=== PATIENT | male | born 1940 | race Caucasian/White ===

== ENCOUNTER 2020-07-21 15:45 | Emergency (ER) | payer MEDICARE, SELFPAY ==
[2020-07-21 16:05] VITALS: BP 105/58; PULSE 75; RESP 16; TEMP 36.9; O2SAT 97; BMI 37.3
--- NOTE | 2020-07-21 16:21 | HMH.EDUTC ---
[place] Disposition Clinical Impression: Exposure to COVID-19 virus Disposition: Home, Self-Care Condition on Discharge: Good Instructions: Preventing the Spread of Coronavirus Discharge Instructions Additional Instructions: isolate until test known Referrals: Chaparro Almanza [Primary Care Provider] - Time of Disposition: 16:24 Medical Decision Making - [place] Inquiry Pt receiving controlled substance: No Vital Signs: 07/21/20 16:05 Temperature 98.4 F Temperature Source Oral Pulse Rate [Right Brachial] 75 Respiratory Rate 16 Blood Pressure [Right Arm] 105/58 L Blood Pressure Mean [Right Arm] 73 Blood Pressure Source [Right Arm] Automatic Cuff Blood Pressure Position [Right Arm] Sitting 02 Sat by Pulse Oximetry 97 Oxygen Delivery Method Room Air Orders (Tests/Meds): ORDERS Category Date Time Status Covid-19 Nasal PCR ([facility]) Routine Lab 07/21/20 16:00 Received [place] HPI - General Chief complaint: Urgent [facility] Stated complaint: Been exposed to COVID Time Seen by Provider: 07/21/20 16:22 Mode of Arrival: Ambulatory Source of Information: Patient Limitations: No Limitations Description of Symptoms (Recalled from Triage Doc. by RN): PATIENT REQUESTING COVID TEST D/T INDIRECT EXPOSURE; DENIES SYMPTOMS HEENT Symptoms (Recalled from RN notes): No Resp Symptoms (Recalled from RN notes): No Skin Symptoms (Recalled from RN notes): No MS Symptoms (Recalled from RN notes): No Functional Status (Recalled from RN notes): WNL - History of Present Illness Provider Complaint: 80 yr old male presnets for covid test. Has been exposed but denies symptoms. - Related Data Home Medications Medication Instructions Recorded Confirmed ALPRAZolam [Xanax 1mg tab] 0.5 mg PO DAILY PRN 01/19/18 06/03/18 Gabapentin [Gabapentin 300mg Cap] 300 mg PO TID 01/19/18 06/03/18 Hydrocodone/Acetaminophen [Lortab 1 tab PO TID 01/19/18 06/03/18 10/325mg tablet] Metformin HCl [Glucophage 500mg 500 mg PO BID 01/19/18 06/03/18 Tablet] ALPRAZolam [Xanax 1mg tab] 1 mg PO BID 06/03/18 06/03/18 Insulin Glargine,Hum.rec.anlog 28 units SQ DAILY 06/03/18 06/03/18 [Tobarrett Solostar] Pioglitazone HCl 45 mg PO DAILY 06/03/18 06/03/18 Sitagliptin Phosphate [Januvia 100 mg PO DAILY 06/03/18 06/03/18 100mg tablet] Previous Rx's Medication Instructions Recorded Sulfamethoxazole/Trimethoprim 1 each PO BID #20 tablet 06/03/18 [Bactrim DS tablet] Allergies Allergy/AdvReac Type Severity Reaction Status Date / Time No Known Allergies Allergy Verified 06/03/18 16:38 - Worker's Comp Is this a Worker's Comp case?: No [facility] History - Hepatitis A Screen Drug use history?: No High risk sexual behaviors?: No History of sexually transmitted infection?: No Currently employed?: No Childcare worker?: No Do you have indoor plumbing?: Yes Do you have electricity?: Yes Attestation statement:: This patient has been screened for Hepatitis A risk factors. I have reviewed the patient's past medical history: Yes Medical History: Reports:: Diabetes Mellitus Type 2 Denies:: Diabetes Mellitus Type 1 Laterality Cases: Bilateral: Tonsillectomy - Social History Smoking Status: Former smoker Alcohol Intake: never Occupational Status: other ROS Obtained: Yes Systems reviewed as appropriate & no additional complaints - Constitutional Constitutional: Reports system reviewed and no additional complaints, except as docu, Denies body ache - Eyes Eyes: Reports system reviewed and no additional complaints, except as docu, Denies loss of vision - ENT Ears, Nose, Mouth, and Throat: Reports system reviewed and no additional complaints, except as docu, Denies bleeding gums - Cardiovascular Cardiovascular: Reports system reviewed and no additional complaints, except as docu, Denies chest pain - Respiratory Respiratory: Yes system reviewed and no additional complaints, except as docu, No change in
[2020-07-21 16:29] VITALS: BP 105/58; PULSE 75; RESP 16; TEMP 36.9; O2SAT 97
== END 2020-07-21 16:31 | disposition home or self-care (01) ==
PROVIDERS: Emergency Provider Nurse Practitioner Family; PCP Internal Medicine
DX: Z20.828 Contact with and (suspected) exposure to other viral communicable diseases (principal); E11.9 Type 2 diabetes mellitus without complications
CPT/HCPCS: G0463; 99201; U0003

== ENCOUNTER 2021-05-11 10:37 | Observation (INO) | payer MEDICARE, SELFPAY ==
[2021-05-11] VITALS (13 sets, daily range): BP systolic 119–144; BP diastolic 53–96; PULSE 60–83; RESP 16–18; TEMP 36.8–37.2; O2SAT 82–100; BMI 35.2; BMI 35.6
--- NOTE | 2021-05-11 11:44 | ECG_ITS ---
APPROVED REPORT Exam: Resting ECG HR:74 bpm ECG Measurements Heart Rate 74 AXES MO 210 P 37 QRSd 100 QRS -72 QT 400 T 37 QTc 444 Conclusion Sinus rhythm with 1st degree AV block Possible Left atrial enlargement Incomplete right bundle branch block Left anterior fascicular block Abnormal ECG Electronically signed by : Jeremie Schneider MD 05/11/2021 20:50:51
--- NOTE | 2021-05-11 12:07 | XR_ITS ---
PROCEDURE INFORMATION: Exam: XR Chest Exam date and time: 05/11/2021 12:07 PM Age: 81 years old Clinical indication: Cough and other: Vomiting, weakness, headache, generalized pain. ; Patient HX: Cough, headache, vomiting, weakness, generalized pain. Possible covid. TECHNIQUE: Imaging protocol: XR of the chest. Views: 1 view. COMPARISON: ABDPELWO CT abdomen pelvis wo con 06/03/2018 4:54 PM FINDINGS: Lungs: Lungs are well aerated without a focal area of consolidation. Pleural spaces: Small subpulmonic effusion on the left. Heart/Mediastinum: Unremarkable. No cardiomegaly. Bones/joints: Unremarkable. IMPRESSION: Lungs are well aerated without a focal area of consolidation.
[2021-05-11 12:31] LABS: ABG Base Excess 2.1 mmol/L (-2.4-2.3); ABG HCO3 27.5 mmhg (22.0-26.0); ABG Oxygen Saturation 75 % (90-100); ABG PH 7.36 mmol/L (7.35-7.45); ABG TCO2 29.1 mmhg (23-27)
[2021-05-11 12:32] LABS: Allen's Test Acceptable; Oxygen 2L %; Source Right Radial
[2021-05-11 12:33] LABS: Chloride 101 mmol/L (98-107)
[2021-05-11 12:34] LABS: Potassium 4.6 mmoL/L (3.5-5.1); Sodium 134 mmol/L (136-145)
[2021-05-11 12:36] LABS: Alanine Aminotransferase 11 U/L (12-78); Alkaline Phosphatase 49 U/L (38-126); Aspartate Amino Transferase 30 U/L (17-59); Bilirubin,Total 0.7 mg/dl (0.2-1.3); Blood Urea Nitrogen 15 mg/dl (9-20); Creatinine Clearance Estimated 90 mL/min (50-200); Estimated Glomerular Filt Rate 81 ml/min (>60); GFR (African American) 98 ML/MIN (>60)
--- NOTE | 2021-05-11 12:36 | HMH.EDGENADL ---
[place] Disposition Clinical Impression: Acute diverticulitis, Acute respiratory failure with hypoxia Right lower lobe pneumonia Qualifiers: Pneumonia type: due to unspecified organism Qualified Code(s): J18.9 - Pneumonia, unspecified organism Disposition: Admitted As Inpatient Condition on Discharge: Fair Instructions: DI for Diarrhea and Traveler's Diarrhea -- Adult, DI for Diarrhea and Traveler's Diarrhea -- Child, DI for Nausea -- Adult, DI for Nausea -- Child Referrals: Chaparro Almanza [Primary Care Provider] - - Critical Care Critical Care Time: No Attestation: On 05/11/21, the high probability of a clinically significant, sudden or life threatening deterioration of the following system(s) required my full and direct attention, intervention and personal management. The time I documented below is in addition to time spent performing reported procedures but includes the following listed in this critical care notation. Medical Decision Making - Medical Records Medical records reviewed: Yes: I reviewed the patient's medical records. - Antonio Inquiry Pt receiving controlled substance: No Vital Signs: 05/11/21 12:02 05/11/21 12:03 05/11/21 12:31 Temperature 98.2 F Temperature Source Oral Pulse Rate 72 71 Pulse Rate [Right Radial] 76 Respiratory Rate 17 17 16 Blood Pressure 136/65 135/64 Blood Pressure [Right Arm] 130/68 Blood Pressure Mean 76 78 Blood Pressure Mean [Right Arm] 88 Blood Pressure Source [Right Arm] Automatic Cuff Blood Pressure Position [Right Arm] Sitting 02 Sat by Pulse Oximetry 97 82 L 98 Oxygen Delivery Method Room Air 05/11/21 13:00 Temperature Temperature Source Pulse Rate 64 Pulse Rate [Right Radial] Respiratory Rate 16 Blood Pressure 137/61 Blood Pressure [Right Arm] Blood Pressure Mean 69 Blood Pressure Mean [Right Arm] Blood Pressure Source [Right Arm] Blood Pressure Position [Right Arm] 02 Sat by Pulse Oximetry 95 Oxygen Delivery Method - Lab Data Lab Results 05/11/21 11:55: WBC 6.1, RBC 4.07 L, Hgb 12.3 L, Hct 39.6 L, MCV 97.2 H, MCH 30.2, MCHC 31.1 L, RDW 14.7, Plt Count 133 L, MPV 8.9, Neut % (Auto) 78.2, Lymph % (Auto) 14.6, [place] % (Auto) 3.5, Eos % (Auto) 2.6, Baso % (Auto) 1.0, Neut # (Auto) 4.8, Lymph # (Auto) 0.9, [place] # (Auto) 0.2, Eos # (Auto) 0.2, Baso # (Auto) 0.1 05/11/21 11:55: Sodium 134 L, Potassium 4.6, Chloride 101, Carbon Dioxide 28, Anion Gap 9.6, BUN 15, Creatinine 0.90, Estimated Creat Clear 90, Estimated GFR 81, Est GFR ( Amer) 98, Glucose 112 H, Calcium 8.3 L, Total Bilirubin 0.7, AST 30, ALT 11 L, Alkaline Phosphatase 49, Troponin I < 0.01, Total Protein 6.2 L, Albumin 3.6, Globulin 2.6, Albumin/Globulin Ratio 1.4, TSH 2.08 05/11/21 11:55: NT-Pro-B Natriuret Pep 906 H, Lipase 49 05/11/21 12:07: Specimen Source Right radial, O2 % 2l, ABG pH 7.36, ABG pCO2 50.0 H, ABG pO2 42.1 L, ABG HCO3 27.5 H, ABG Total CO2 29.1 H, ABG O2 Saturation 75 L*, ABG Base Excess 2.1, Silvestre Test Acceptable 05/11/21 12:27: SARS-CoV-2 (PCR) Not detected, Influenza A Untype (PCR) Not detected, Influenza Type B (PCR) Not detected Result diagrams: 05/11/21 11:55 05/11/21 11:55 Orders (Tests/Meds): ED MEDICATIONS Generic Name Dose Route Start Last Admin Trade Name Allison PRN Reason Stop Dose Admin Sodium Chloride 1,000 mls @ 125 mls/hr 05/11/21 13:07 05/11/21 13:18 Sod Chlor 0.9% 1000ml Bag IV 05/11/21 21:06 125 mls/hr .Q8H ONE Administration Piperacillin Sod/Tazobactam 100 mls @ 200 mls/hr 05/11/21 15:30 Sod 4.5 gm/ Sodium Chloride IV 05/25/21 15:29 Q8H ERIC Vancomycin HCl 2,000 mg/ 250 mls @ 125 mls/hr 05/11/21 16:00 Sodium Chloride IV 05/25/21 15:59 Q18H ERIC Discontinued Medications Generic Name Dose Route Start Last Admin Trade Name Allison PRN Reason Stop Dose Admin Iopamidol 70 ml 05/11/21 13:49 05/11/21 13:52 Iopamidol-370 (76%);100ml Bottle IV 05/11/21 13:50 70 ml ONCE ONE
[2021-05-11 12:37] LABS: Albumin Level 3.6 g/dl (3.5-5.0); Albumin/Globulin Ratio 1.4 (1.1-1.8); Anion Gap 9.6 mEq/L (5-15); Calcium 8.3 mg/dl (8.4-10.2); Carbon Dioxide 28 mmol/L (22.0-30.0); Globulin 2.6 g/dL (1.3-3.2); Glucose 112 mg/dl (74-100); Lipase 49 U/L (23-300); Total Protein,Serum 6.2 g/dl (6.3-8.2)
[2021-05-11 12:41] LABS: ABG PO2 42.1 mmhg (80-100)
[2021-05-11 12:42] LABS: Basophils # 0.1 K/mm3 (0-0.2); Eosinophils # 0.2 K/mm3 (0.0-0.4); Eosinophils % 2.6 % (0.1-12.0); Hematocrit 39.6 % (42.0-52.0); Hemoglobin 12.3 g/dL (14.1-18.0); Lymphocytes # 0.9 K/mm3 (0.7-4.5); Lymphocytes % 14.6 % (10-50); Mean Corpuscular HGB Conc 31.1 g/dL (31.8-35.4); Mean Corpuscular Hemoglobin 30.2 pg (27.0-31.2); Mean Corpuscular Volume 97.2 fl (80-94); Mean Platelet Volume 8.9 fl (7.4-10.4); Monocytes # 0.2 K/mm3 (0.1-1.0); Monocytes % 3.5 % (1.7-9.3); Neutrophils # 4.8 K/mm3 (1.8-7.8); Neutrophils % 78.2 % (37.0-80.0); Platelet Count 133 K/mm3 (142-424); Red Blood Count 4.07 M/mm3 (4.60-6.20); Red Cell Distribution Width 14.7 % (11.5-17.5); White Blood Count 6.1 K/mm3 (4.8-10.8)
--- NOTE | 2021-05-11 12:44 | PC.NURSE ---
RT called VBG results of pH 7.35; CO2 50; PO2 42
[2021-05-11 12:48] LABS: NT Pro Brain Natriuretic Pep. 906 pg/mL (0-450)
[2021-05-11 12:56] LABS: Troponin I < 0.01 ng/ml (0.00-0.034)
[2021-05-11 12:59] LABS: Coronavirus 19, PCR Not Detected (NotDetected); Influenza A, PCR Not Detected (NotDetected); Influenza B, PCR Not Detected (NotDetected)
[2021-05-11 13:13] LABS: Thyroid Stimulating Hormone 2.08 uIU/mL (0.465-4.68)
--- NOTE | 2021-05-11 13:16 | CT_ITS ---
PROCEDURE INFORMATION: Exam: CTA Chest With Contrast Exam date and time: 05/11/2021 1:16 PM Age: 81 years old Clinical indication: Sternal or substernal pain; Patient HX: Chest pain, hypoxia TECHNIQUE: Imaging protocol: Computed tomographic angiography of the chest with contrast. 3D rendering (Not supervised by radiologist): MIP and/or 3D reconstructed images were created by the technologist. Radiation optimization: All CT scans at this facility use at least one of these dose optimization techniques: automated exposure control; mA and/or kV adjustment per patient size (includes targeted exams where dose is matched to clinical indication); or iterative reconstruction. Contrast material: ISOVUE 370; Contrast volume: 70 ml; Contrast route: INTRAVENOUS (IV); COMPARISON: CR XR CHEST PORTABLE 05/11/2021 12:22 PM FINDINGS: Pulmonary arteries: No evidence of pulmonary embolus to the segmental level. 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 Lungs: 3.1 mm nodule in the right middle lobe. Opacities in the lower lobes may represent atelectasis or pneumonia.. Pleural spaces: Unremarkable. No pneumothorax. No pleural effusion. Heart: Coronary artery calcifications may indicate coronary artery disease. Mediastinal space: The proximal esophagus is dilated 3 cm and contains air-fluid level . Mild hiatal hernia.. Lymph nodes: Unremarkable. No enlarged lymph nodes. Kidneys and ureters: Multiple simple cysts in both kidneys. Largest cyst is seen in the left kidney and measures 6.5 cm. . No follow-up imaging recommended . Nonobstructing left renal calculi Bones/joints: Healed left rib fractures 2 Soft tissues: Unremarkable. IMPRESSION: 1. 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 2. No evidence of pulmonary embolus to the segmental level. 3. 3.1 mm nodule in the right middle lobe. For patients at low risk (minimal or absent history of smoking and of other known risk factors), no routine follow-up is indicated. For patients at high risk (history of smoking or of other known risk factors), consider optional CT Chest at 12 months. (Reference: Radha) References: Radha Antunez et al. Guidelines for Management of Incidental Pulmonary Nodules Detected on CT Images: From the Fleischner Society 2017. Radiology. 2017;284(1):228-243. 4. The proximal esophagus is dilated 3 cm and contains air-fluid level . Mild hiatal hernia.. Recommend further evaluation for esophageal pathology if clinically indicated 5. Opacities in the lower lobes may represent atelectasis or pneumonia.. COMMENTS: Consistent with the [place] [employer]'s Incidental Findings Committee white paper (J Am Jacobo Radiol 2018): Any incidental renal lesion less than 1 cm or classified as too small to characterize, or any incidental cystic renal lesion characterized as simple-appearing, is likely benign. No follow-up imaging is recommended for these lesions per consensus recommendations based on imaging criteria.
--- NOTE | 2021-05-11 13:33 | CT_ITS ---
PROCEDURE INFORMATION: Exam: CT Abdomen And Pelvis Without Contrast Exam date and time: 05/11/2021 1:33 PM Age: 81 years old Clinical indication: Other: Diarrhea TECHNIQUE: Imaging protocol: Computed tomography of the abdomen and pelvis without contrast. Radiation optimization: All CT scans at this facility use at least one of these dose optimization techniques: automated exposure control; mA and/or kV adjustment per patient size (includes targeted exams where dose is matched to clinical indication); or iterative reconstruction. COMPARISON: [facility] CT abdomen pelvis wo con 06/03/2018 4:54 PM FINDINGS: Liver: Normal. No mass. Gallbladder and bile ducts: Normal. No calcified stones. No ductal dilation. Pancreas: Normal. No ductal dilation. Spleen: Normal. No splenomegaly. Adrenal glands: Normal. No mass. Kidneys and ureters: Large bilateral simple renal cysts. Largest measures 6.3 cm . No follow-up imaging recommended . Nonobstructing renal calculi. Stomach and bowel: Diverticulosis and Bowel wall thickening along the rectosigmoid colon. Mild pericolonic inflammatory changes. No evidence of perforation or abscess formation or bleeding. Findings consistent with acute diverticulitis. Appendix: No evidence of appendicitis. Intraperitoneal space: Unremarkable. No free air. No significant fluid collection. Vasculature: Unremarkable. No abdominal aortic aneurysm. Lymph nodes: Unremarkable. No enlarged lymph nodes. Urinary bladder: Unremarkable as visualized. Reproductive: Unremarkable as visualized. Bones/joints: See Soft tissues finding. Soft tissues: Suboptimal study due to the fact that large part of the left chest abdomen and pelvis is not included on this study. In addition the patient is not scanned to include the pubic symphysis.. IMPRESSION: 1. Suboptimal study due to the fact that large part of the left chest abdomen and pelvis is not included on this study. In addition the patient is not scanned to include the pubic symphysis.. 2. Diverticulosis and Bowel wall thickening along the rectosigmoid colon. Mild pericolonic inflammatory changes. No evidence of perforation or abscess formation or bleeding. Findings consistent with acute diverticulitis. COMMENTS: Consistent with the [place] [employer]'s Incidental Findings Committee white paper (J Am Jacobo Radiol 2018): Any incidental renal lesion less than 1 cm or classified as too small to characterize, or any incidental cystic renal lesion characterized as simple-appearing, is likely benign. No follow-up imaging is recommended for these lesions per consensus recommendations based on imaging criteria.
--- NOTE | 2021-05-11 15:27 | HMH.PHACONS ---
- Pharmacy Consult Date: 05/11/21 Time: 15:27 Referring provider: DR. LUIS Reason for Consult:: VANCOMYCIN DOSING Allergies and ADEs:: Allergies Allergy/AdvReac Type Severity Reaction Status Date / Time No Known Allergies Allergy Verified 06/03/18 16:38 Home Medications:: Home Medications Medication Instructions Recorded Confirmed Type Hydrocodone/Acetaminophen [Lortab 1 tab PO QID 01/19/18 05/12/21 History 10/325mg tablet] ALPRAZolam [Xanax 1mg tab] 1 mg PO BID 06/03/18 05/12/21 History Pioglitazone HCl 45 mg PO DAILY 06/03/18 05/12/21 History Albuterol Sulfate [Albuterol 1 puff IH TIDP PRN 05/12/21 05/12/21 History Sulfate Hfa] Citalopram Hydrobromide 10 mg PO DAILY 05/12/21 05/12/21 History [Citalopram 10mg Tablet] Finasteride [Proscar] 5 mg PO DAILY 05/12/21 05/12/21 History Gabapentin [Neurontin 800mg Tab] 800 mg PO BID 05/12/21 05/12/21 History Insulin Degludec [Tresiba 28 units SQ DAILY 05/12/21 05/12/21 History Flextouch U-100] Metformin HCl [Metformin 1000mg 1,000 mg PO BIDWMEAL 05/12/21 05/12/21 History Tablets] Sitagliptin Phosphate [Januvia 50 mg PO DAILY 05/12/21 05/12/21 History 50mg Tablet] levoFLOXacin [Levaquin 500mg 500 mg PO DAILY #7 tab 05/12/21 Rx tab] Height: 1.78 m Weight: 111.13 kg Laboratory Results:: Laboratory Results - last 24 hr 05/11/21 11:55: WBC 6.1, RBC 4.07 L, Hgb 12.3 L, Hct 39.6 L, MCV 97.2 H, MCH 30.2, MCHC 31.1 L, RDW 14.7, Plt Count 133 L, MPV 8.9, Neut % (Auto) 78.2, Lymph % (Auto) 14.6, [place] % (Auto) 3.5, Eos % (Auto) 2.6, Baso % (Auto) 1.0, Neut # (Auto) 4.8, Lymph # (Auto) 0.9, [place] # (Auto) 0.2, Eos # (Auto) 0.2, Baso # (Auto) 0.1 05/11/21 11:55: Sodium 134 L, Potassium 4.6, Chloride 101, Carbon Dioxide 28, Anion Gap 9.6, BUN 15, Creatinine 0.90, Estimated Creat Clear 90, Estimated GFR 81, Est GFR ( Amer) 98, Glucose 112 H, Calcium 8.3 L, Total Bilirubin 0.7, AST 30, ALT 11 L, Alkaline Phosphatase 49, Troponin I < 0.01, Total Protein 6.2 L, Albumin 3.6, Globulin 2.6, Albumin/Globulin Ratio 1.4, TSH 2.08 05/11/21 11:55: NT-Pro-B Natriuret Pep 906 H, Lipase 49 05/11/21 12:07: Specimen Source Right radial, O2 % 2l, ABG pH 7.36, ABG pCO2 50.0 H, ABG pO2 42.1 L, ABG HCO3 27.5 H, ABG Total CO2 29.1 H, ABG O2 Saturation 75 L*, ABG Base Excess 2.1, Silvestre Test Acceptable 05/11/21 12:27: SARS-CoV-2 (PCR) Not detected, Influenza A Untype (PCR) Not detected, Influenza Type B (PCR) Not detected Medical History: Reports:: Diabetes Mellitus Type 2 Denies:: Diabetes Mellitus Type 1 Assessment and Plan - Assessment and plan all Dx Assessment and Plan for all problems:: Objective: Patient: Floor: Age: 81 yo Serum creatinine: 1 mg/dL Height: 70.1 Inches Weight (kg): 111 Assessment: IBW (kg): 73.23 Dosing wt(kg): 111 Estimated Creatinine clearance (ml/min): 59.0 CRCL method: Cockcroft and Gault using ibw(default). Drug selected: Vancomycin Loading dose (mg): 0 Vd (liters): 88.8 (factor used: 0.8 L/kg) Shahzad (hr-1): 0.053 Half life (hrs): 13.08 Recommended dose: 2000 mg Interval: 18 hrs Infusion time (hrs): 2.0 Predicted peak (mcg/mL): 34.8 Predicted trough (mcg/mL): 14.90 Total body weight is being used for vancomycin dosing. Recommendations: Give Vancomycin 2000 mg q 18 hrs with an expected Cpeak of 34.8 mcg/ml and an expected Ctrough of 14.90 mcg/ml ----Vanco only - ignore for aminoglycosides----- CLvanco= 4.71 L/hr AUC 0-24 /NICOLETTE Data: NICOLETTE 0.5 mcg/mL: AUC/NICOLETTE: 1132.3 NICOLETTE 1.0 mcg/mL: AUC/NICOLETTE: 566.2 --------- NICOLETTE 1.5 mcg/mL: AUC/NICOLETTE: 377.4 NICOLETTE 2.0 mcg/mL: AUC/NICOLETTE: 283.1 Thank you for the consult, will continue to follow.
[2021-05-11 16:02] LABS: Troponin I 0.02 ng/ml (0.00-0.034)
--- NOTE | 2021-05-11 17:31 | PC.NURSE ---
Report called to Odalys Mei RN
[2021-05-11 18:11] LABS: POC Glucose,Bedside 112 (70-110)
--- NOTE | 2021-05-11 18:47 | PC.NURSE ---
Patient admitted from ER. C/O myalgia widespread, nausea and vomitting. Upon admission to room patient is oriented x 4 but very drowsy. Pulm: patient is on 2l nc and oxygen saturation is currently 98%. Incentive spirometer is at bedside. GI: Patient is excessively nauseas, vomitting. Blood glucose was 112, refused dinner but is drinking fluids. Skin c/d/i. Patient is ordered to be on telemetry, however, there are no available telemetry monitors. Will continue to monitor.
[2021-05-11 19:14] LABS: Troponin I < 0.01 ng/ml (0.00-0.034)
[2021-05-11 20:35] LABS: Lactic Acid 0.7 mmol/L (0.7-2.1)
[2021-05-11 23:01] LABS: POC Glucose,Bedside 123 (70-110)
[2021-05-12] VITALS: BP 119/51; PULSE 74; RESP 15; TEMP 36.6; O2SAT 96
[2021-05-12 02:14] VITALS: O2SAT 97
--- NOTE | 2021-05-12 03:28 | PC.NURSE ---
Patient is alert and oriented x4. Patient abdomen is tender upon palpation, bowel sounds are active in all quadrants. Patient has voiced no complaints of nausea to this RN at this point in time ([id number]). Patient remains on 2LNC and is tolerating that well with oxygen saturation above 90%. VSS, call light within reach, will continue to monitor.
[2021-05-12 04:00] VITALS: BP 134/65; PULSE 68; RESP 16; TEMP 37.2; O2SAT 98
[2021-05-12 05:00] VITALS: BMI 24.5
[2021-05-12 05:54] LABS: POC Glucose,Bedside 95 (70-110)
[2021-05-12 06:36] LABS: Basophils % 0.6 % (0.1-2.0); Eosinophils # 0.1 K/mm3 (0.0-0.4); Eosinophils % 1.4 % (0.1-12.0); Hematocrit 37.5 % (42.0-52.0); Hemoglobin 11.5 g/dL (14.1-18.0); Lymphocytes # 1.6 K/mm3 (0.7-4.5); Lymphocytes % 27.4 % (10-50); Mean Corpuscular HGB Conc 30.6 g/dL (31.8-35.4); Mean Corpuscular Hemoglobin 29.5 pg (27.0-31.2); Mean Corpuscular Volume 96.3 fl (80-94); Mean Platelet Volume 8.4 fl (7.4-10.4); Monocytes # 0.4 K/mm3 (0.1-1.0); Monocytes % 6.3 % (1.7-9.3); Neutrophils # 3.7 K/mm3 (1.8-7.8); Neutrophils % 64.3 % (37.0-80.0); Platelet Count 141 K/mm3 (142-424); Red Blood Count 3.89 M/mm3 (4.60-6.20); Red Cell Distribution Width 14.9 % (11.5-17.5); White Blood Count 5.8 K/mm3 (4.8-10.8)
[2021-05-12 06:54] LABS: Alanine Aminotransferase 10 U/L (12-78); Albumin Level 3.1 g/dl (3.5-5.0); Albumin/Globulin Ratio 1.2 (1.1-1.8); Alkaline Phosphatase 42 U/L (38-126); Aspartate Amino Transferase 20 U/L (17-59); Bilirubin,Total 0.5 mg/dl (0.2-1.3); Blood Urea Nitrogen 20 mg/dl (9-20); Calcium 8.1 mg/dl (8.4-10.2); Carbon Dioxide 30 mmol/L (22.0-30.0); Chloride 103 mmol/L (98-107); Creatinine Clearance Estimated 57 mL/min (50-200); Estimated Glomerular Filt Rate 64 ml/min (>60); GFR (African American) 78 ML/MIN (>60); Globulin 2.5 g/dL (1.3-3.2); Glucose 90 mg/dl (74-100); Sodium 136 mmol/L (136-145); Total Protein,Serum 5.6 g/dl (6.3-8.2)
--- NOTE | 2021-05-12 07:16 | P.CONPHA_ITS ---
[facility] Pharmacy VTE Monitoring - Patient Demographics Admission date: 05/11/21 Report Date: 05/12/21 Time: 07:16 Allergies/Adverse Reactions: Patient Allergies No Known Allergies Allergy (Verified 06/03/18 16:38) Height: 1.78 m Weight: 77.791 kg Patient Problems: Current Active Problems Right lower lobe pneumonia (Acute) Acute diverticulitis (Acute) Acute respiratory failure with hypoxia (Acute) - VTE Risk Labs: VTE Related Lab Results Hgb 11.5 g/dL (14.1-18.0) L 05/12/21 06:11 Hct 37.5 % (42.0-52.0) L 05/12/21 06:11 Plt Count 141 K/mm3 (142-424) L 05/12/21 06:11 BUN 20 mg/dl (9-20) D 05/12/21 06:11 Creatinine 1.10 mg/dl (0.66-1.25) D 05/12/21 06:11 Estimated Creat Clear 57 mL/min (50-200) 05/12/21 06:11 Was VTE Risk Assessment Performed: Yes VTE Score: 4 VTE Risk Level: Low Risk - Prophylaxis VTE Prophylaxis Ordered?: Yes Types of VTE Prophylaxis: TEDS Knee High, Pharmacological Location of Applied Device: Bilateral Lower Extremeties Pharmacologic Type: Enoxaparin
--- NOTE | 2021-05-12 07:36 | HMH.PHAINT ---
MEDICATION RECONCILIATION COMPLETED ON PATIENT USING EXTERNAL FILL HISTORY FROM PHARMACY. -ANTONIO HUGGINS, TONOD
[2021-05-12 08:00] VITALS: BP 125/49; PULSE 70; RESP 22; TEMP 36.8; O2SAT 97
--- NOTE | 2021-05-12 08:48 | HMH.HPDC ---
General - General Admission date:: 05/11/21 Discharge date: 05/12/21 *Admission Date: 05/11/21 *Chief complaint: Cough and fever *History of present illness: 81-year-old white male, normal patient of Dr. Almanza in [place], who presented to the emergency department with cough, congestion, fever, nausea and some vomiting. ER evaluation revealed mild leukocytosis, hazy infiltrate in the lung field, but no serologic evidence of COVID-19 infection and the diagnosis of community-acquired bacterial pneumonia was made. Because of his abdominal pain CT of abdomen pelvis was done which revealed mild thickening of the sigmoid colon and diverticulitis, mild with no evidence of perforation. Patient was admitted overnight for broad-spectrum antibiotics and cultures. [facility] History I have reviewed the patient's past medical history: Yes Medical History: Reports:: Diabetes Mellitus Type 2 Denies:: Diabetes Mellitus Type 1 *Have you ever received a pneumonia vaccine?: No *Have you received a flu vaccine this season?: Yes Other Medical History: Reports: Cataracts Laterality Cases: Bilateral: Tonsillectomy Fractures: Yes (rib) - *Social History Last grade of school completed: 9th or 10th Smoking Status: Former smoker Alcohol Intake: never *Occupational Status:: retired Housing: house Household Members: spouse, children *Travel in the last 8 weeks: None Family Hx:: Hyperlipidemia, Hypertension Review of Systems - Review of Systems Review of systems:: pertinent systems reviewed and negative unless documented below - *Neurologic Reports weakness, Denies headache(s) Exam Vital signs and Labs for Last 24 Hours: Temp Pulse Resp BP Pulse Ox 98.9 F 68 16 134/65 98 05/12/21 04:00 05/12/21 04:00 05/12/21 04:00 05/12/21 04:00 05/12/21 04:00 Laboratory Results - last 24 hr 05/11/21 11:55: WBC 6.1, RBC 4.07 L, Hgb 12.3 L, Hct 39.6 L, MCV 97.2 H, MCH 30.2, MCHC 31.1 L, RDW 14.7, Plt Count 133 L, MPV 8.9, Neut % (Auto) 78.2, Lymph % (Auto) 14.6, [place] % (Auto) 3.5, Eos % (Auto) 2.6, Baso % (Auto) 1.0, Neut # (Auto) 4.8, Lymph # (Auto) 0.9, [place] # (Auto) 0.2, Eos # (Auto) 0.2, Baso # (Auto) 0.1 05/11/21 11:55: Sodium 134 L, Potassium 4.6, Chloride 101, Carbon Dioxide 28, Anion Gap 9.6, BUN 15, Creatinine 0.90, Estimated Creat Clear 90, Estimated GFR 81, Est GFR ( Amer) 98, Glucose 112 H, Calcium 8.3 L, Total Bilirubin 0.7, AST 30, ALT 11 L, Alkaline Phosphatase 49, Troponin I < 0.01, Total Protein 6.2 L, Albumin 3.6, Globulin 2.6, Albumin/Globulin Ratio 1.4, TSH 2.08 05/11/21 11:55: NT-Pro-B Natriuret Pep 906 H, Lipase 49 05/11/21 12:07: Specimen Source Right radial, O2 % 2l, ABG pH 7.36, ABG pCO2 50.0 H, ABG pO2 42.1 L, ABG HCO3 27.5 H, ABG Total CO2 29.1 H, ABG O2 Saturation 75 L*, ABG Base Excess 2.1, Silvestre Test Acceptable 05/11/21 12:27: SARS-CoV-2 (PCR) Not detected, Influenza A Untype (PCR) Not detected, Influenza Type B (PCR) Not detected 05/11/21 15:20: Troponin I 0.02 05/11/21 18:04: POC Glucose 112 H 05/11/21 18:32: Troponin I < 0.01 05/11/21 19:15: Lactate 0.7 05/11/21 21:04: POC Glucose 123 H 05/12/21 05:47: POC Glucose 95 05/12/21 06:11: WBC 5.8, RBC 3.89 L, Hgb 11.5 L, Hct 37.5 L, MCV 96.3 H, MCH 29.5, MCHC 30.6 L, RDW 14.9, Plt Count 141 L, MPV 8.4, Neut % (Auto) 64.3, Lymph % (Auto) 27.4, [place] % (Auto) 6.3, Eos % (Auto) 1.4, Baso % (Auto) 0.6, Neut # (Auto) 3.7, Lymph # (Auto) 1.6, [place] # (Auto) 0.4, Eos # (Auto) 0.1, Baso # (Auto) 0.0 05/12/21 06:11: Sodium 136, Potassium 4.0, Chloride 103, Carbon Dioxide 30, Anion Gap 7.0, BUN 20 D, Creatinine 1.10 D, Estimated Creat Clear 57, Estimated GFR 64, Est GFR ( Amer) 78 D, Glucose 90, Calcium 8.1 L, Total Bilirubin 0.5, AST 20 D, ALT 10 L, Alkaline Phosphatase 42, Total Protein 5.6 L, Albumin 3.1 L D, Globulin 2.5, Albumin/Globulin Ratio 1.2 I & O for Last 24 hours: Intake & Output 05/09/21 05/10/21 05/11/21 05/12/21 11:59 11:59 11:59 11:59 Weight 171 lb
[2021-05-12 09:34] VITALS: BMI 24.6
--- NOTE | 2021-05-12 10:02 | PC.NURSE ---
PAtient to be discharged today on provider's orders. Patient to be discharged home with shceduled home medications and addition to Levaquin- which was called into [facility] pharmacy (patient's current pharmacy). New medication information packet given to patient as well as verbal teaching of medication use and side effects. Discharge summary given, explaining all admitting diagnoses- these were also discussed with patient. Patient stated that they had no questions for the nurse or provider at the time of discharge, patient instructed to call provider's office if they have questions or concerns, and to also attend scheduled appointment. no further orders.
== END 2021-05-12 09:50 | disposition home or self-care (01) ==
LOC: UTC 10:43 → ER 11:41 → 2ND 17:05
PROVIDERS: Emergency Medicine; Family Medicine; Admitting Provider Internal Medicine Adolescent Medicine; Emergency Provider Nurse Practitioner Family; PCP Internal Medicine; Visit Provider Internal Medicine Adolescent Medicine
DX: J18.9 Pneumonia, unspecified organism (principal); K57.92 Diverticulitis of intestine, part unspecified, without perforation or abscess without bleeding; J96.01 Acute respiratory failure with hypoxia; Z20.822 Contact with and (suspected) exposure to COVID-19; E11.9 Type 2 diabetes mellitus without complications; Z79.84 Long term (current) use of oral hypoglycemic drugs; Z79.899 Other long term (current) drug therapy; R06.9 Unspecified abnormalities of breathing
CPT/HCPCS: G0378; 36415; 71045; 71275; 74176; 80053; 82803; 82962; 83605; 83690; 83880; 84443; 84484; 85025; 87040; 93005; 94760; 94761; 96365; 96375; 96376; 99284; C9803; J2405; J2543; J3370; Q9967; U0003; U0005

== ENCOUNTER 2022-03-26 11:28 | Observation (INO) | payer MEDICARE, SELFPAY ==
[2022-03-26] VITALS (9 sets, daily range): BP systolic 100–116; BP diastolic 45–67; PULSE 74–111; RESP 16–18; TEMP 36.4–37.1; O2SAT 91–96; BMI 33.0; BMI 32.9; BMI 32.5
--- NOTE | 2022-03-26 12:31 | HMH.EDUTC ---
[facility] [place] Disposition Clinical Impression: New onset atrial fibrillation, Hypomagnesemia Hypotension Qualifiers: Hypotension type: unspecified hypotension type Qualified Code(s): I95.9 - Hypotension, unspecified Disposition: Still a Patient Condition on Discharge: Fair Medical Decision Making - Antonio Inquiry Pt receiving controlled substance: No Antonio was queried for this patient: No Vital Signs: 03/26/22 11:45 03/26/22 12:00 03/26/22 12:59 Temperature 98.7 F 98.7 F Temperature Source Oral Oral Pulse Rate Pulse Rate [Left Radial] 78 78 111 H Respiratory Rate 17 17 18 Blood Pressure Blood Pressure [Right Arm] 116/45 L 100/50 L 102/60 L Blood Pressure Mean Blood Pressure Mean [Right Arm] 68 66 74 Blood Pressure Source [Right Arm] Manual Cuff/ Auscultation Blood Pressure Position [Right Arm] Sitting 02 Sat by Pulse Oximetry 96 96 93 L Oxygen Delivery Method Room Air Room Air Room Air 03/26/22 13:04 03/26/22 14:00 Temperature Temperature Source Pulse Rate 93 H 85 Pulse Rate [Left Radial] Respiratory Rate Blood Pressure 102/60 L 104/67 L Blood Pressure [Right Arm] Blood Pressure Mean 69 74 Blood Pressure Mean [Right Arm] Blood Pressure Source [Right Arm] Blood Pressure Position [Right Arm] 02 Sat by Pulse Oximetry 94 L 96 Oxygen Delivery Method Room Air - Lab Data Lab Results 03/26/22 13:05: WBC 7.4, RBC 4.17 L, Hgb 12.3 L, Hct 39.8 L, MCV 95.4 H, MCH 29.4, MCHC 30.8 L, RDW 13.9, Plt Count 170, MPV 8.4, Neut % (Auto) 67.7, Lymph % (Auto) 21.2, [place] % (Auto) 4.4, Eos % (Auto) 5.6, Baso % (Auto) 1.1, Neut # (Auto) 5.0, Lymph # (Auto) 1.6, [place] # (Auto) 0.3, Eos # (Auto) 0.4, Baso # (Auto) 0.1 03/26/22 13:05: Sodium 137, Potassium 4.4, Chloride 103, Carbon Dioxide 31 H, Anion Gap 7.4, BUN 14, Creatinine 0.90, Estimated Creat Clear 83, Estimated GFR 81, Est GFR ( Amer) 98, Glucose 122 H, Calcium 8.5, Total Bilirubin 0.4, AST 23, ALT 14, Alkaline Phosphatase 61, Troponin I < 0.01, Total Protein 5.9 L, Albumin 3.4 L, Globulin 2.5, Albumin/Globulin Ratio 1.4 03/26/22 13:05: TSH 1.43, Free T4 Index 2.4 L, Thyroxine (T4) 5.7, T3 Uptake 42 H 03/26/22 13:05: Magnesium 1.0 L 03/26/22 13:40: Urine Color Yellow, Urine Appearance Clear, Urine pH 6.0, Ur Specific [place] 1.025, Urine Protein Negative, Urine Glucose (UA) Negative, Urine Ketones Trace, Urine Blood Trace-i, Urine Nitrate Negative, Urine Bilirubin Negative, Urine Urobilinogen 0.2, Ur Leukocyte Esterase Negative, Urine RBC Occasional, Urine WBC Occasional, Ur Squamous Epith Cells Occasional, Urine Bacteria Trace, Urine Mucus 3+ 03/26/22 14:45: SARS-CoV-2 (PCR) Not detected, Influenza A Untype (PCR) Not detected, Influenza Type B (PCR) Not detected Result diagrams: 03/26/22 13:05 03/26/22 13:05 Orders (Tests/Meds): ED MEDICATIONS Generic Name Dose Route Start Last Admin Trade Name Freq PRN Reason Stop Dose Admin Hydrocodone Bitart/Acetaminophen 1 tab 03/26/22 17:00 03/26/22 16:49 Hydrocodone 10mg/Apap 325mg Tab PO 04/25/22 16:59 1 tab QID ERIC Administration Albuterol Sulfate 1 puff 03/26/22 16:07 Albuterol-Hfa 90mcg/Puff Inhaler 8gm IH 04/25/22 16:06 TIDP PRN Shortness Of Breath Alprazolam 1 mg 03/26/22 21:00 Alprazolam 1mg Tablet PO 04/25/22 20:59 BID ERIC Finasteride 5 mg 03/27/22 09:00 Finasteride 5mg Tablet PO 04/26/22 08:59 DAILY ERIC Gabapentin 800 mg 03/26/22 21:00 Gabapentin 400mg Capsule PO 04/25/22 20:59 BID ERIC Sodium Chloride 1,000 mls @ 75 mls/hr 03/26/22 16:07 03/26/22 16:49 Sod Chlor 0.9% 1000ml Bag IV 04/25/22 16:06 75 mls/hr .[id number] ERIC Administration Insulin Human Lispro 0 unit 03/26/22 16:30 03/26/22 16:51 Humalog 100 Units/Ml 3ml Vial (Ssi) SQ 04/25/22 16:29 Not Given ACHS ERIC Protocol Ondansetron HCl 4 mg 03/26/22 16:07 Ondansetron 4mg/2ml Vial IV 04/25/22 16:06 Q8HP PRN Nausea Héctor
--- NOTE | 2022-03-26 12:53 | PC.NURSE ---
PATIENT SENT TO ER PER Charles MATOS APRN FOR FURTHER EVALUATION. REPORT GIVEN TO Camilla FUNK RN BY Charles MATOS APRN
--- NOTE | 2022-03-26 13:04 | ECG_ITS ---
APPROVED REPORT Exam: Resting ECG HR:95 bpm ECG Measurements Heart Rate 95 AXES QRSd 103 QRS 265 QT 359 T 0 QTc 411 Conclusion ATRIAL FIBRILLATION PATTERN CONSISTENT WITH PULMONARY DISEASE INCOMPLETE RIGHT BUNDLE BRANCH BLOCK [90+ ms QRS DURATION, TERMINAL R IN V1/V2, 40+ ms S IN I/aVL/V4/V5/V6] RIGHT VENTRICULAR HYPERTROPHY [SOME/ALL OF: PROMINENT R IN V1, LATE TRANSITION, RAD, DEANDRE, SSS] ABNORMAL ECG UNCONFIRMED REPORT Electronically signed by : Jeremie Schneider MD 03/27/2022 21:41:10
--- NOTE | 2022-03-26 13:07 | PC.NURSE ---
EKG obtained and given to STANLEY PAYAN
--- NOTE | 2022-03-26 13:09 | XR_ITS ---
FINAL REPORT CLINICAL HISTORY: new onset afib COMPARISON: 05/11/2021 FINDINGS: SINGLE-VIEW CHEST The heart size is normal. The mediastinum is normal. There are mild bibasilar opacities, favor atelectasis. There is severe degenerative change of the right shoulder. There is no pneumothorax. IMPRESSION: Favor bibasilar atelectasis. Reviewed, Interpreted and Dictated by Myke Nash III, MD Transcribed by Marisol Davis Authenticated and [facility]
--- NOTE | 2022-03-26 13:12 | HMH.EDGENADL ---
ED Disposition Clinical Impression: New onset atrial fibrillation, Hypomagnesemia Hypotension Qualifiers: Hypotension type: unspecified hypotension type Qualified Code(s): I95.9 - Hypotension, unspecified Disposition: Still a Patient Condition on Discharge: Fair Referrals: Chaparro Almanza [Primary Care Provider] - As needed - Critical Care Critical Care Time: No Attestation: On 03/26/22, the high probability of a clinically significant, sudden or life threatening deterioration of the following system(s) required my full and direct attention, intervention and personal management. The time I documented below is in addition to time spent performing reported procedures but includes the following listed in this critical care notation. Medical Decision Making - Antonio Inquiry Pt receiving controlled substance: No Vital Signs: 03/26/22 11:45 03/26/22 12:00 03/26/22 12:59 Temperature 98.7 F 98.7 F Temperature Source Oral Oral Pulse Rate Pulse Rate [Left Radial] 78 78 111 H Respiratory Rate 17 17 18 Blood Pressure Blood Pressure [Right Arm] 116/45 L 100/50 L 102/60 L Blood Pressure Mean Blood Pressure Mean [Right Arm] 68 66 74 Blood Pressure Source [Right Arm] Manual Cuff/ Auscultation Blood Pressure Position [Right Arm] Sitting 02 Sat by Pulse Oximetry 96 96 93 L Oxygen Delivery Method Room Air Room Air Room Air 03/26/22 13:04 03/26/22 14:00 Temperature Temperature Source Pulse Rate 93 H 85 Pulse Rate [Left Radial] Respiratory Rate Blood Pressure 102/60 L 104/67 L Blood Pressure [Right Arm] Blood Pressure Mean 69 74 Blood Pressure Mean [Right Arm] Blood Pressure Source [Right Arm] Blood Pressure Position [Right Arm] 02 Sat by Pulse Oximetry 94 L 96 Oxygen Delivery Method Room Air - Lab Data Lab Results 03/26/22 13:05: WBC 7.4, RBC 4.17 L, Hgb 12.3 L, Hct 39.8 L, MCV 95.4 H, MCH 29.4, MCHC 30.8 L, RDW 13.9, Plt Count 170, MPV 8.4, Neut % (Auto) 67.7, Lymph % (Auto) 21.2, [place] % (Auto) 4.4, Eos % (Auto) 5.6, Baso % (Auto) 1.1, Neut # (Auto) 5.0, Lymph # (Auto) 1.6, [place] # (Auto) 0.3, Eos # (Auto) 0.4, Baso # (Auto) 0.1 03/26/22 13:05: Sodium 137, Potassium 4.4, Chloride 103, Carbon Dioxide 31 H, Anion Gap 7.4, BUN 14, Creatinine 0.90, Estimated Creat Clear 83, Estimated GFR 81, Est GFR ( Amer) 98, Glucose 122 H, Calcium 8.5, Total Bilirubin 0.4, AST 23, ALT 14, Alkaline Phosphatase 61, Troponin I < 0.01, Total Protein 5.9 L, Albumin 3.4 L, Globulin 2.5, Albumin/Globulin Ratio 1.4 03/26/22 13:05: TSH 1.43, Free T4 Index 2.4 L, Thyroxine (T4) 5.7, T3 Uptake 42 H 03/26/22 13:05: Magnesium 1.0 L 03/26/22 13:40: Urine Color Yellow, Urine Appearance Clear, Urine pH 6.0, Ur Specific [place] 1.025, Urine Protein Negative, Urine Glucose (UA) Negative, Urine Ketones Trace, Urine Blood Trace-i, Urine Nitrate Negative, Urine Bilirubin Negative, Urine Urobilinogen 0.2, Ur Leukocyte Esterase Negative, Urine RBC Occasional, Urine WBC Occasional, Ur Squamous Epith Cells Occasional, Urine Bacteria Trace, Urine Mucus 3+ Result diagrams: 03/26/22 13:05 03/26/22 13:05 Orders (Tests/Meds): ED MEDICATIONS Generic Name Dose Route Start Last Admin Trade Name Freq PRN Reason Stop Dose Admin Magnesium Sulfate 2 gm in 50 mls @ 50 mls/hr 03/26/22 14:32 03/26/22 14:35 Magnesium Sulfate 2gm/50ml Premix IV 03/26/22 15:31 50 mls/hr ONCE ONE Administration Sodium Chloride 10 ml 03/26/22 13:11 Sodium Chloride 0.9% 10ml Flush Syringe IV 04/25/22 13:10 NEEDED PRN Maintain IV Site Discontinued Medications Generic Name Dose Route Start Last Admin Trade Name Freq PRN Reason Stop Dose Admin Sodium Chloride 1,000 ml 03/26/22 14:11 03/26/22 14:14 Sodium Chloride 0.9% 1000ml Bag IV 03/26/22 14:12 1,000 ml BOLUS ONE Administration ORDERS Category Date Time Status Consult to Cardiology [CONS] Routine Cons 03/26/22 14:12 Active Rapid PCR C
[2022-03-26 13:19] LABS: Basophils # 0.1 K/mm3 (0-0.2); Basophils % 1.1 % (0.1-2.0); Eosinophils # 0.4 K/mm3 (0.0-0.4); Eosinophils % 5.6 % (0.1-12.0); Hematocrit 39.8 % (42.0-52.0); Hemoglobin 12.3 g/dL (14.1-18.0); Lymphocytes # 1.6 K/mm3 (0.7-4.5); Lymphocytes % 21.2 % (10-50); Mean Corpuscular HGB Conc 30.8 g/dL (31.8-35.4); Mean Corpuscular Hemoglobin 29.4 pg (27.0-31.2); Mean Corpuscular Volume 95.4 fl (80-94); Mean Platelet Volume 8.4 fl (7.4-10.4); Monocytes # 0.3 K/mm3 (0.1-1.0); Monocytes % 4.4 % (1.7-9.3); Neutrophils % 67.7 % (37.0-80.0); Platelet Count 170 K/mm3 (142-424); Red Blood Count 4.17 M/mm3 (4.60-6.20); Red Cell Distribution Width 13.9 % (11.5-17.5); White Blood Count 7.4 K/mm3 (4.8-10.8)
[2022-03-26 13:26] LABS: Alanine Aminotransferase 14 U/L (12-78); Albumin Level 3.4 g/dl (3.5-5.0); Albumin/Globulin Ratio 1.4 (1.1-1.8); Alkaline Phosphatase 61 U/L (38-126); Anion Gap 7.4 mEq/L (5-15); Aspartate Amino Transferase 23 U/L (17-59); Bilirubin,Total 0.4 mg/dl (0.2-1.3); Blood Urea Nitrogen 14 mg/dl (9-20); Calcium 8.5 mg/dl (8.4-10.2); Carbon Dioxide 31 mmol/L (22.0-30.0); Chloride 103 mmol/L (98-107); Creatinine Clearance Estimated 83 mL/min (50-200); Estimated Glomerular Filt Rate 81 ml/min (>60); GFR (African American) 98 ML/MIN (>60); Globulin 2.5 g/dL (1.3-3.2); Glucose 122 mg/dl (74-100); Potassium 4.4 mmoL/L (3.5-5.1); Sodium 137 mmol/L (136-145); Total Protein,Serum 5.9 g/dl (6.3-8.2)
[2022-03-26 13:40] LABS: Troponin I < 0.01 ng/ml (0.00-0.034)
[2022-03-26 13:53] LABS: Microscopic, Urine URINE MICROSCOPIC (MICROSCOPIC)
[2022-03-26 13:58] LABS: Appearance,Urine CLEAR (Clear); Bilirubin,Urine Negative (Negative); Blood, Urine TRACE-I (Negative); Color,Urine YELLOW (Yellow); Glucose,Urine (UA) Negative (Negative); Ketones,Urine TRACE (Negative); Leukocyte Esterase,Urine Negative (Negative); Nitrate,Urine Negative (Negative); Protein,Urine Negative (Negative); Specific Gravity, Urine 1.025 (1.005-1.030); Urobilinogen,Urine 0.2 EU/dl (0.2)
--- NOTE | 2022-03-26 14:05 | PC.NURSE ---
ER at for patient eval; Family at BS
[2022-03-26 14:17] LABS: Bacteria,Urine Trace /lpf; Mucus,Urine 3+ /lpf; RBC,Urine Occasional #/hpf (0-3); Squamous Epithelial Cell,Urine Occasional #/hpf (0-5); WBC,Urine Occasional #/hpf (0-3)
--- NOTE | 2022-03-26 14:25 | PC.NURSE ---
critical magnesium of 1.0 called from lab. physician notified.
[2022-03-26 14:32] LABS: Free Thyroxine Index 2.4 ug/dL (5.93-13.13); T4 (Thyroxine) 5.7 ug/dl (5.53-11.0); Triiodothryronine (T3) Uptake 42 % (23.5-40.5)
--- NOTE | 2022-03-26 14:36 | PC.NURSE ---
CARDIOLOGY HERE FOR CONSULT
[2022-03-26 14:46] LABS: Thyroid Stimulating Hormone 1.43 uIU/mL (0.465-4.68)
--- NOTE | 2022-03-26 14:50 | CA_ITS ---
APPROVED REPORT EXAM: Comprehensive 2D, Doppler, and color-flow Echocardiogram Bindery Manager: Johanne Rg RVT Ht: 5 ft 10 in Wt: 229lbs BSA: 2.21 BP: 104/67 mmHg Indications: A-FIB,DM 2D Dimensions LVOT 2.36 cm (M/F) 1.5-2.5 LA Volume 92.50 mL LA Volume Index 41.85 mL/m2 (M/F) 16-34 M-Mode Dimensions RVDd 3.65 cm (0.9-2.6) LA Diam 5.60 cm (1.9-4.0) LVDd 4.28 cm (3.5-5.7) Ao Diam 3.38 cm (2.0-3.7) LVDs 3.13 cm (3.5-5.7) IVSd 1.29 cm (0.6-1.1) PWd 1.13 cm (0.6-1.1) EF (Teich) 52.80% FS 26.90% EDV (Teich) 82.20 mL TAPSE 2.45 (<1.7) ESV (Teich) 38.80 mL LV Diastology MED E' 8.70 (< 7 cm/sec) LAT E' 13.20 (<10 cm/sec) Aortic Valve AO Peak GR. 2.90 mmHg Pulmonary Valve PV Peak Velocity 63.00 (50-150 cm/s) Tricuspid Valve TR P. Velocity 275.00 cm/s RAP Estimate 10.00 mmHg RVSP 40.30 mmHg Left Ventricle Left atrium is mildly enlarged, left ventricle is normal size mild concentric left ventricular hypertrophy, estimated ejection fraction 55% with no regional wall motion abnormality, diastolic parameters are inconclusive. Right Ventricle Right atrium and right ventricle are mildly enlarged with normal contractility. Aortic Valve Aortic valve is minimally thickened and fibrosed there is no aortic stenosis or aortic insufficiency. Mitral Valve Mitral valve leaflets are minimally thickened, there is mild mitral regurgitation Tricuspid Valve Tricuspid grossly normal, there is mild tricuspid regurgitation, calculated right ventricular systolic pressure is 37 mmHg. Pulmonic Valve Pulmonic valve is poorly visualized. Great Vessels Aortic root is normal size. Inferior vena cava is poorly visualized. Pericardium No significant pericardial effusion noted. Conclusion 1. Mild biatrial enlargement, normal left ventricular size, mild concentric left ventricular hypertrophy, estimated ejection fraction 55% with no regional wall motion abnormality, diastolic parameters are inconclusive. 2. Mildly enlarged right ventricle with normal contractility. 3. Mild mitral and tricuspid regurgitation, calculated right ventricular systolic pressure 37 mmHg. 4. No significant pericardial effusion noted. 5. Inferior vena cava is poorly visualized. Electronically signed by : Immanuel Dover MD 03/27/2022 15:10:48
--- NOTE | 2022-03-26 14:52 | HMH.CNCARD ---
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 Patient reports started to feel bad last night around bedtime, developed severe nausea,was unable to vomit despite trying. Reports could only belch. Also developed cramping in bilateral legs from groin to feet. Patient went to [facility] today and was found to be hypotensive with a irregular pulse. reports patient has had a long history of nausea and vomiting which he was prescribed Zofran for him his PCP. Denies prior GI consult. Reports nausea is now better and cramping in legs have resolved. Upon presentation to ER EKG showed A. fib rate of 95 with a right bundle branch block, troponin was negative, hemoglobin 12.3, magnesium 1.0, and potassium 4.4. Patient denies chest pain, notes of breath, abdominal pain. Denies prior history of A. fib. [facility] History Medical History: Reports:: Diabetes Mellitus Type 2 Denies:: Diabetes Mellitus Type 1 *Have you ever received a pneumonia vaccine?: Yes *Have you received a flu vaccine this season?: Yes Other Medical History: Reports: Cataracts Laterality Cases: Bilateral: Tonsillectomy Fractures: Yes (rib) - *Social History Smoking Status: Former smoker Alcohol Intake: never *Occupational Status:: retired Housing: house Household Members: spouse, children *Travel in the last 8 weeks: [facility] Family Hx:: Hyperlipidemia, Hypertension Meds Home Medications Medication Instructions Recorded Confirmed Type Hydrocodone/Acetaminophen [Lortab 1 tab PO QID 01/19/18 03/26/22 History 10/325mg tablet] ALPRAZolam [Xanax 1mg tab] 1 mg PO BID 06/03/18 03/26/22 History Pioglitazone HCl 45 mg PO DAILY 06/03/18 03/26/22 History Albuterol Sulfate [Albuterol 1 puff IH TIDP PRN 05/12/21 03/26/22 History Sulfate Hfa] Citalopram Hydrobromide 10 mg PO DAILY 05/12/21 03/26/22 History [Citalopram 10mg Tablet] Finasteride [Proscar] 5 mg PO DAILY 05/12/21 03/26/22 History Gabapentin [Neurontin 800mg Tab] 800 mg PO BID 05/12/21 03/26/22 History Insulin Degludec [Tresiba 28 units SQ DAILY 05/12/21 03/26/22 History Flextouch U-100] Metformin HCl [Metformin 1000mg 1,000 mg PO BIDWMEAL 05/12/21 03/26/22 History Tablets] Sitagliptin Phosphate [Januvia 50 mg PO DAILY 05/12/21 03/26/22 History 50mg Tablet] Allergies Allergy/AdvReac Type Severity Reaction Status Date / Time No Known Allergies Allergy Verified 06/03/18 16:38 Exam Vital signs and Labs for Last 24 Hours: Temp Pulse Resp BP Pulse Ox 98.7 F 85 18 104/67 L 96 03/26/22 12:59 03/26/22 14:00 03/26/22 12:59 03/26/22 14:00 03/26/22 14:00 Laboratory Results - last 24 hr 03/26/22 13:05: WBC 7.4, RBC 4.17 L, Hgb 12.3 L, Hct 39.8 L, MCV 95.4 H, MCH 29.4, MCHC 30.8 L, RDW 13.9, Plt Count 170, MPV 8.4, Neut % (Auto) 67.7, Lymph % (Auto) 21.2, [place] % (Auto) 4.4, Eos % (Auto) 5.6, Baso % (Auto) 1.1, Neut # (Auto) 5.0, Lymph # (Auto) 1.6, [place] # (Auto) 0.3, Eos # (Auto) 0.4, Baso # (Auto) 0.1 03/26/22 13:05: Sodium 137, Potassium 4.4, Chloride 103, Carbon Dioxide 31 H, Anion Gap 7.4, BUN 14, Creatinine 0.90, Estimated Creat Clear 83, Estimated GFR 81, Est GFR ( Amer) 98, Glucose 122 H, Calcium 8.5, Total Bilirubin 0.4, AST 23, ALT 14, Alkaline Phosphatase 61, Troponin I < 0.01, Total Protein 5.9 L, Albumin 3.4 L, Globulin 2.5, Albumin/Globulin Ratio 1.4 03/26/22 13:05: TSH 1.43, Free T4 Index 2.4 L, Thyroxine (T4) 5.7, T3 Uptake 42 H 03/26/22 13:05: Magnesium 1.0 L 03/26/22 13:40: Urine Color Yellow, Urin
--- NOTE | 2022-03-26 14:59 | PC.NURSE ---
CARDIOLOGY WANTS PT ADMITTED FOR NEW ONSET A FIB , SHE ALSO WANTS AN ECHO AT BS
--- NOTE | 2022-03-26 15:00 | PC.NURSE ---
STANLEY PAYAN speaking with Dr. Spence at this time for possible admission
[2022-03-26 15:05] LABS: Coronavirus 19, PCR Not Detected (NotDetected); Influenza A, PCR Not Detected (NotDetected); Influenza B, PCR Not Detected (NotDetected)
--- NOTE | 2022-03-26 15:07 | PC.NURSE ---
ECHO LAB HERE FOR ECHO
--- NOTE | 2022-03-26 15:08 | PC.NURSE ---
Spoke with Julienne, Care Management regarding patient admission
--- NOTE | 2022-03-26 16:03 | HMH.PHAINT ---
MEDICATION RECONCILIATION COMPLETED ON PATIENT USING EXTERNAL FILL HISTORY FROM PHARMACY. -ANTONIO HUGGINS, TONOD
--- NOTE | 2022-03-26 16:05 | PC.NURSE ---
called report to krista mobley
--- NOTE | 2022-03-26 16:20 | HMH.PHAVTE ---
[facility] Pharmacy VTE Monitoring - Patient Demographics Admission date: 03/26/22 Report Date: 03/26/22 Time: 16:20 Allergies/Adverse Reactions: Patient Allergies No Known Allergies Allergy (Verified 06/03/18 16:38) Height: 1.78 m Weight: 104.326 kg Patient Problems: Current Active Problems A-fib (Acute) Ascending aortic aneurysm (Acute) Hypotension (Acute) Diabetes mellitus (Acute) New onset atrial fibrillation (Acute) Hypomagnesemia (Acute) Hiatal hernia (Acute) - VTE Risk Labs: VTE Related Lab Results Hgb 12.3 g/dL (14.1-18.0) L 03/26/22 13:05 Hct 39.8 % (42.0-52.0) L 03/26/22 13:05 Plt Count 170 K/mm3 (142-424) 03/26/22 13:05 BUN 14 mg/dl (9-20) 03/26/22 13:05 Creatinine 0.90 mg/dl (0.66-1.25) 03/26/22 13:05 Estimated Creat Clear 83 mL/min (50-200) 03/26/22 13:05 - Prophylaxis VTE Prophylaxis Ordered?: Yes Types of VTE Prophylaxis: TEDS Knee High, Pharmacological Location of Applied Device: Bilateral Lower Extremeties Pharmacologic Type: Other (XARELTO)
--- NOTE | 2022-03-26 16:24 | PC.NURSE ---
patient going to 2nd floor via wc with SRNA and family; pt has all belongings
--- NOTE | 2022-03-26 16:27 | PC.NURSE ---
Pt arrived to the floor at this time.
[2022-03-26 17:23] LABS: POC Glucose,Bedside 79 (70-110)
[2022-03-26 17:42] LABS: Magnesium 0.9 mg/dl (1.6-2.3)
[2022-03-26 18:07] LABS: Troponin I < 0.01 ng/ml (0.00-0.034)
--- NOTE | 2022-03-26 19:06 | PC.NURSE ---
Notified Dr. Spence of critical mag, he ordered 1 gm mag x 1, and recheck level in am. Noted.
[2022-03-26 19:38] LABS: Troponin I < 0.01 ng/ml (0.00-0.034)
[2022-03-27] VITALS: BP 130/75; PULSE 110; PULSE 94; RESP 19; TEMP 36.7; O2SAT 91
[2022-03-27 02:15] LABS: POC Glucose,Bedside 107 (70-110)
[2022-03-27 03:57] VITALS: BP 128/61; PULSE 88; RESP 18; TEMP 36.9; O2SAT 96
[2022-03-27 05:00] VITALS: PULSE 80; BMI 32.8
--- NOTE | 2022-03-27 05:23 | PC.NURSE ---
Patient a&o x4. Patient able to ambulate to restroom with stand by assist. Patient medicated for nausea x1 per mar. Patient shows afib with bbb on tele controlled hr of 70-90's. However when patient ambulates HR elevates to 130's yet quickly recovers. Placed patient on 3l nc r/t sats around 85% while sleeping. Patient tolerating 02 well.
[2022-03-27 06:46] LABS: Chloride 104 mmol/L (98-107); Potassium 4.3 mmoL/L (3.5-5.1); Sodium 136 mmol/L (136-145)
[2022-03-27 06:49] LABS: Anion Gap 6.3 mEq/L (5-15); Blood Urea Nitrogen 14 mg/dl (9-20); Calcium 8.3 mg/dl (8.4-10.2); Carbon Dioxide 30 mmol/L (22.0-30.0); Creatinine Clearance Estimated 82 mL/min (50-200); Estimated Glomerular Filt Rate 71 ml/min (>60); GFR (African American) 86 ML/MIN (>60); Glucose 135 mg/dl (74-100)
[2022-03-27 07:27] LABS: Magnesium 1.4 mg/dl (1.6-2.3)
[2022-03-27 08:00] VITALS: BP 139/69; PULSE 85; PULSE 90; RESP 18; TEMP 36.3; O2SAT 93
--- NOTE | 2022-03-27 08:51 | HMH.HP ---
*Admission Date: 03/26/22 *Chief complaint: Bilateral leg cramps *History of present illness: 82-year-old male patient presented to the [facility] for reports of nausea/belching and bilateral leg cramping x1 day. He reports today prior he was experienced severe nausea with no emesis and was only belching. He also reports developing bilateral lower extremity leg cramps from the groin radiating to his feet. While in the [facility] he was hypotensive with an irregular heart rate, EKG showing atrial fibrillation. reported patient having a long history of nausea/vomiting and regularly prescribed Zofran from PCP. He denies ever seeing GI for this problem. He denies any prior history of atrial fibrillation or any heart related history. [facility] History I have reviewed the patient's past medical history: Yes Medical History: Reports:: Aneurysm, Diabetes Mellitus Type 2 Denies:: Cancer, Diabetes Mellitus Type 1 *Have you ever received a pneumonia vaccine?: Yes *Have you received a flu vaccine this season?: Yes Other Medical History: Reports: Cataracts Laterality Cases: Bilateral: Tonsillectomy Fractures: Yes (rib) - *Social History Smoking Status: Former smoker Alcohol Intake: never *Occupational Status:: disabled Housing: house Household Members: spouse, children *Travel in the last 8 weeks: None Family Hx:: Hyperlipidemia, Hypertension Review of Systems - Review of Systems Review of systems:: pertinent systems reviewed and negative unless documented below - Constitutional Denies chills, Denies fever(s), Denies headache(s) - Eyes Denies blurry vision, Denies double vision - ENT Reports hearing loss, Denies headache(s), Denies pain with swallowing - *Cardiovascular Denies chest pain, Denies chest pain at rest, Denies shortness of breath - *Respiratory Denies chest congestion, Denies shortness of breath - *Gastrointestinal Reports belching, Reports nausea, Denies abdominal pain, Denies vomiting - *Musculoskeletal Reports abnormal walking, Reports back pain, Denies muscle weakness, Denies numbness - Integumentary/Breasts Denies change in skin color, Denies wounds - *Neurologic Reports unsteadiness, Denies headache(s), Denies numbness, Denies weakness - Psychiatric Denies anxiety, Denies behavioral changes, Denies sensing things others do not sense - Endocrine Denies cold intolerance, Denies increased hunger - Hematologic/Lymphatic Denies easy bleeding, Denies easy bruising - Allergic/Immunologic Denies GI upset with certain foods, Denies throat swelling Meds Home Medications Medication Instructions Recorded Confirmed Type Hydrocodone/Acetaminophen [Lortab 1 tab PO QID 01/19/18 03/26/22 History 10/325mg tablet] ALPRAZolam [Xanax 1mg tab] 1 mg PO BID 06/03/18 03/26/22 History Albuterol Sulfate [Albuterol 1 puff IH TIDP PRN 05/12/21 03/26/22 History Sulfate Hfa] Finasteride [Proscar] 5 mg PO DAILY 05/12/21 03/26/22 History Gabapentin [Neurontin 800mg Tab] 800 mg PO BID 05/12/21 03/26/22 History Insulin Degludec [Tresiba 28 units SQ DAILY 05/12/21 03/26/22 History Flextouch U-100] Metformin HCl [Metformin 1000mg 1,000 mg PO BIDWMEAL 05/12/21 03/26/22 History Tablets] Sitagliptin Phosphate [Januvia 50 mg PO DAILY 05/12/21 03/26/22 History 50mg Tablet] Donepezil HCl [Aricept 10mg 10 mg PO HS 03/26/22 03/26/22 History tablet] Donepezil HCl [Aricept 5mg 5 mg PO HS 03/26/22 03/26/22 History Tablet] Pioglitazone HCl [Actos] 45 mg PO DAILY 03/26/22 03/26/22 History Tamsulosin HCl [Flomax 0.4mg 0.4 mg PO HS 03/26/22 03/26/22 History capsule] Bisoprolol Fumarate [Bisoprolol 2.5 mg PO DAILY 30 Days #15 tab 03/27/22 Rx 5mg Tablet] Rivaroxaban [Xarelto 20mg Tablet*] 20 mg PO DAILY 30 Days #30 tab 03/27/22 Rx Allergies Allergy/AdvReac Type Severity Reaction Status Date / Time No Known Allergies Allergy Verified 06/03/18 16:38 Exam Vital sig
--- NOTE | 2022-03-27 10:20 | HMH.PNCARD ---
Subjective Date: 03/27/22 Time: 10:20 Principal diagnosis: afib, hypomagnesemia, myalgias, nausea Interval history: Patient reports feeling better today, denies nausea, denies leg cramps. Patient remains in A. fib with a rate of 100. Echo from 03/26 shows EF of 50-55 with mild TR. magnesium has improved to 1.4. Hypotension resolved. Exam Vital signs and Labs for Last 24 Hours: Temp Pulse Resp BP Pulse Ox 97.4 F L 85 18 139/69 93 L 03/27/22 08:00 03/27/22 08:00 03/27/22 08:00 03/27/22 08:00 03/27/22 08:00 Laboratory Results - last 24 hr 03/26/22 13:05: WBC 7.4, RBC 4.17 L, Hgb 12.3 L, Hct 39.8 L, MCV 95.4 H, MCH 29.4, MCHC 30.8 L, RDW 13.9, Plt Count 170, MPV 8.4, Neut % (Auto) 67.7, Lymph % (Auto) 21.2, [place] % (Auto) 4.4, Eos % (Auto) 5.6, Baso % (Auto) 1.1, Neut # (Auto) 5.0, Lymph # (Auto) 1.6, [place] # (Auto) 0.3, Eos # (Auto) 0.4, Baso # (Auto) 0.1 03/26/22 13:05: Sodium 137, Potassium 4.4, Chloride 103, Carbon Dioxide 31 H, Anion Gap 7.4, BUN 14, Creatinine 0.90, Estimated Creat Clear 83, Estimated GFR 81, Est GFR ( Amer) 98, Glucose 122 H, Calcium 8.5, Total Bilirubin 0.4, AST 23, ALT 14, Alkaline Phosphatase 61, Troponin I < 0.01, Total Protein 5.9 L, Albumin 3.4 L, Globulin 2.5, Albumin/Globulin Ratio 1.4 03/26/22 13:05: TSH 1.43, Free T4 Index 2.4 L, Thyroxine (T4) 5.7, T3 Uptake 42 H 03/26/22 13:05: Magnesium 1.0 L 03/26/22 13:40: Urine Color Yellow, Urine Appearance Clear, Urine pH 6.0, Ur Specific [place] 1.025, Urine Protein Negative, Urine Glucose (UA) Negative, Urine Ketones Trace, Urine Blood Trace-i, Urine Nitrate Negative, Urine Bilirubin Negative, Urine Urobilinogen 0.2, Ur Leukocyte Esterase Negative, Urine RBC Occasional, Urine WBC Occasional, Ur Squamous Epith Cells Occasional, Urine Bacteria Trace, Urine Mucus 3+ 03/26/22 14:45: SARS-CoV-2 (PCR) Not detected, Influenza A Untype (PCR) Not detected, Influenza Type B (PCR) Not detected 03/26/22 16:45: Troponin I < 0.01 03/26/22 16:45: Magnesium 0.9 L 03/26/22 16:47: POC Glucose 79 03/26/22 18:48: Troponin I < 0.01 03/26/22 20:09: POC Glucose 107 03/27/22 06:29: Sodium 136, Potassium 4.3, Chloride 104, Carbon Dioxide 30, Anion Gap 6.3, BUN 14, Creatinine 1.00, Estimated Creat Clear 82, Estimated GFR 71, Est GFR ( Amer) 86, Glucose 135 H, Calcium 8.3 L 03/27/22 06:29: Magnesium 1.4 L D I & O for Last 24 hours: Intake & Output 03/24/22 03/25/22 03/26/22 03/27/22 23:59 23:59 23:59 23:59 Intake Total 480 / 505 385 / 385 Balance 480 / 505 385 / 385 Weight 227 lb 3 oz 229 lb 5 oz - *Routine Respiratory Exam Present: CTA bilaterally - *Routine Cardiovascular Exam Comments: afib - *Routine Extremities Exam Absent: cyanosis, clubbing, edema - *Routine Skin Exam Present: intact, warm. Absent: rash Progress Note: A&P (1) A-fib Status: Acute (2) Ascending aortic aneurysm Status: Acute (3) Hypotension Status: Acute (4) Diabetes mellitus Status: Acute (5) Hiatal hernia Status: Acute Assessment and Plan for All Diagnoses:: New onset A. fib -Rate in the 100s, bisoprolol 2.5 mg daily. -Continue xarelto 20mg Qd-discussed bleeding risk vs stroke risk with patient and -both are agreeable -echo 03/26-EF 50-55 mild TR -Today magneisum 1. 4 Hypotension -Resolved Nausea history of hiatal hernia -CTA of chest 05/06 showed proximal esophageal dilation of 3 cm and hiatal hernia -Consider GI or surgical consult for ongoing nausea 03/27-denies nausea. Consider outpatient GI follow-up 4.3 cm ascending aortic aneurysm -No signs of dissection-denies chest or abdominal pain, bilateral lower extremity pulses present -Follow-up outpatient CT DM II -Primary service Lower extremity myalgia -Magnesium was 1.0, replaced -gentle fluids 03/27-resolved CV stable for DC home. We will start patient on bisoprolol 2.5 mg daily. Patient is to continue Xarelto 20 mg daily, counseled patient on
--- NOTE | 2022-03-27 11:43 | HMH.DCSUM ---
General - General Admission date:: 03/26/22 Discharge date: 03/27/22 HPI HPI: 82-year-old male patient presented to the [facility] for reports of nausea/belching and bilateral leg cramping x1 day. He reports today prior he was experienced severe nausea with no emesis and was only belching. He also reports developing bilateral lower extremity leg cramps from the groin radiating to his feet. While in the [facility] he was hypotensive with an irregular heart rate. reported patient having a long history of nausea/vomiting and regularly prescribed Zofran from PCP. He denies ever seeing GI for this problem. He denies any prior history of atrial fibrillation or any heart related history. Hospital Course Hospital Course: 82-year-old male patient to the [facility] emergency department with reports of nausea/vomiting for several days. Found to be in atrial fibrillation, which is new for him. Admitted with cardiology consult Chest x-ray reveals bibasilar atelectasis Cardiology consult and recommends: Assessment and Plan for All Diagnoses:: New onset A. fib -Rate in the 100s, bisoprolol 2.5 mg daily. -Continue xarelto 20mg Qd-discussed bleeding risk vs stroke risk with patient and -both are agreeable -echo 03/26-EF 50-55 mild TR -Today magneisum 1. 4 Hypotension -Resolved Nausea history of hiatal hernia -CTA of chest 05/06 showed proximal esophageal dilation of 3 cm and hiatal hernia -Consider GI or surgical consult for ongoing nausea 03/27-denies nausea. Consider outpatient GI follow-up 4.3 cm ascending aortic aneurysm -No signs of dissection-denies chest or abdominal pain, bilateral lower extremity pulses present -Follow-up outpatient CT DM II -Primary service Lower extremity myalgia -Magnesium was 1.0, replaced -gentle fluids 03/27-resolved CV stable for DC home. We will start patient on bisoprolol 2.5 mg daily. Patient is to continue Xarelto 20 mg daily, counseled patient on monitoring for signs of bleeding. Recommend follow-up in office in 1 week. 82-year-old male patient admitted to [facility] for new onset atrial fibrillation. He was also slightly hypotensive, after administration of IV fluids blood pressure is now normal. His lab work also revealed low magnesium was replenished. Echocardiogram revealed an EF of 50 to 55% with mild tricuspid regurgitation. This morning he is sitting up in bed denies any chest pain or shortness of breath, current EKG showing normal sinus rhythm. He also denies any further nausea/vomiting, tolerating breakfast without difficulty or abdominal pain. He will be discharged home with new medications and instructions and follow-up appointments with PCP and cardiology. Pharmacology will discuss new medications with patient's especially Xarelto. PLAN: 1. We will discharge home today 2. Bisoprolol 2.5 mg p.o. daily 3. Xarelto 20 mg daily 4. Follow-up with cardiology in 1 week 5. Follow-up with PCP in 1 week Objective Vital signs: Temp Pulse Resp BP Pulse Ox 97.4 F L 85 18 139/69 93 L 03/27/22 08:00 03/27/22 08:00 03/27/22 08:00 03/27/22 08:00 03/27/22 08:00 no acute distress - *Routine HEENT Exam Head: Present: normocephalic Eye: Present: EOMI ENT: Present: mucous membranes moist - *Routine Neck Exam Present: trachea midline. Absent: tracheal deviation - *Routine Respiratory Exam Present: CTA bilaterally. Absent: accessory muscle use - *Routine Cardiovascular Exam Present: RRR - *Routine Abdominal Exam Present: soft, normoactive bowel sounds. Absent: tenderness, firm - *Routine Extremities Exam Present: edema, full ROM, pulses intact. Absent: cyanosis, clubbing - *Routine Skin Exam Present: intact, dry. Absent: cyanosis, erythema - *Routine Neurological Exam Present: alert, oriented X3. Absent: motor deficit - Routine Psychiatric Exam Present: normal affect, n
[2022-03-27 11:52] LABS: POC Glucose,Bedside 171 (70-110)
[2022-03-27 11:52] LABS: POC Glucose,Bedside 117 (70-110)
[2022-03-27 12:00] VITALS: PULSE 60
--- NOTE | 2022-03-30 15:18 | CARE MANAGER ---
Spoke with patient family for post-discharge phone interview, she states that patient is doing well and has no issues at this time.
== END 2022-03-27 13:00 | disposition home or self-care (01) ==
LOC: UTC 11:51 → ER 12:58 → 2ND 15:51
PROVIDERS: Admitting Provider Family Medicine; Emergency Provider Emergency Medicine; PCP Internal Medicine; Visit Provider Family Medicine
DX: I48.91 Unspecified atrial fibrillation (principal); I95.9 Hypotension, unspecified; R25.2 Cramp and spasm; I71.2 Thoracic aortic aneurysm, without rupture; E11.9 Type 2 diabetes mellitus without complications; R11.0 Nausea; Z87.891 Personal history of nicotine dependence; K44.9 Diaphragmatic hernia without obstruction or gangrene; Z20.822 Contact with and (suspected) exposure to COVID-19; Z79.4 Long term (current) use of insulin; Z79.899 Other long term (current) drug therapy
CPT/HCPCS: G0378; 71045; 80048; 80053; 81001; 82962; 83735; 84436; 84443; 84479; 84484; 85025; 93005; 93306; 99285; C9803; J2405; J3475; U0003; U0005

== ENCOUNTER → 2022-04-14 07:57 | Outpatient (CLI) | payer MEDICARE, SELFPAY ==
--- NOTE | 2022-04-14 | CA_ITS ---
APPROVED REPORT Exam: Pharmacologic Technologist: Helen Watters Ht: 5 ft 10 in Wt: 228 lbs BSA: 2.21 m2 HR: 53 bpm BP: 109/66 mmHg Indications: Abnormal ekg, Dyspnea on Exertion Medical History Medications: Alprazolam,,,,, Aspirin,,,,, Metformin,,,,, Gabapentin,,,,, Pioglitazone,,,,, TAMSULOSIN,,,,, Albuterol,,,,, DONEPEZIL,,,,, BisOPROLOL,,,,, Finasteride,,,,, RIvaROXABAN,,,,, Degludec,,,,, Stress Test Details Test: LEXISCAN HR Resting HR: 64 bpm Max Heart Rate (APMHR): 137.280761 bpm Max HR Achieved: 89 bpm Target HR (85% APMHR): 116.705346 bpm % of APMHR: 64.96 Recovery HR: 71 bpm BP Resting BP: 109.0/66.0 mmHg Max BP: 114.0/58.0 mmHg Recovery BP: 113.0/59.0 mmHg ECG Resting ECG: Atrial fibrillation, left axis deviation, poor R wave progression. Clinical Exercise duration: 04:01 min Highest Stage Achieved: Stress ECG Conclusion Symptoms: Shortness of air. No chest pain. Arrhythmias/Ectopy: Occasional PVC or aberrantly conducted beat. One wide complex couplet. ST-T Changes: No signifcant changes. Conclusion: Unremarkable Lexiscan stress. Myoview images reported separately. Test Summary REST . . . . . . . Resting REST 04:08 . . 64 . 109/ 66 . . Stage 1 . . . . . . . Myoview Injected Stage 1 01:00 . . 73 . . . . Stage 2 01:00 . . 88 . 108/ 73 . . Stage 3 01:00 . . 69 . 114/ 58 . . Stage 4 01:00 . . 78 . 114/ 58 . . Stage 4 01:01 . . 73 . 114/ 58 . Stop exercise at 04:01 RECOVERY 01:00 . . 57 . 112/ 54 . . RECOVERY 02:00 . . 71 . 112/ 54 . . RECOVERY 03:00 . . 62 . 113/ 59 . . RECOVERY 03:24 . . 59 . 113/ 59 . . Electronically signed by : Immanuel Dover MD 04/15/2022 09:02:31
--- NOTE | 2022-04-14 08:02 | NM_ITS ---
APPROVED REPORT Exam: Nuclear Stress Test Indication: SOB, Abnormal EKG, DM Patient Location: Outpatient Stress Tech: Helen Watters NM Tech:Adriana Ornelas, ARRT, RT (R)(N) Ht: 5 ft 10 in Wt: 220 lbs HR: 64 bpm BP: 109/66 mmHg BSA: 2.17 m2 BMI: 31.5 History: SOB, Abnormal EKG, DM Procedure: Patient received a 0.4 mg of intravenous Lexiscan, resting heart rate 64 bpm, resting blood pressure 109/66 mmHg, with Lexiscan maximum heart rate achived was 89 bpm which is Less than 85 % of the maximum predicted heart rate and blood pressure was 114/58 mmHg. With Lexiscan, patient denied any complaint of chest pain. Electrocardiogram Resting electrocardiogram shows atrial fibrillation, with Lexiscan there is less than 1.[address] segment depression noted from the baseline EKG. The EKG portion of the Lexiscan is nondiagnostic. Cardiac Stress and Resting SPECT Images: Cardiac Stress and Resting SPECT images were obtained using technetium 99m Myoview 30.3 mCi stress and 10.50 mCi at rest. Gated SPECT analysis of segmental wall motion and calculation of the ejection fraction also done. Prone images were also obtained. Cardiac stress and rest SPECT images show uniform myocardial activity without segmental perfusion abnormality, computer derived ejection fraction is 38%, left ventricle is globally hypokinetic, right ventricle is normal size and contractility. Conclusion: 1. The EKG portion of the Lexiscan is nondiagnostic. 2. No scintigraphic evidence of reversible ischemia seen, computer derived ejection fraction 38% with left ventricular global hypokinesis, right ventricle is normal size and contractility. 3. Abnormal Lexiscan Myoview study due to low ejection fraction. Electronically signed by : Immanuel Dover MD 04/15/2022 09:04:56
--- NOTE | 2022-04-14 08:02 | CT_ITS ---
FINAL REPORT TECHNIQUE: Then section axial CT images of the chest were obtained with contrast. Three-D reformatted images were also obtained.This study was performed with techniques to keep radiation doses as low as reasonably achievable (ALARA). Individualized dose reduction techniques using automated exposure control or adjustment of mA and/or kV according to the patient''s size were employed. CLINICAL HISTORY: ascending aortic aneurysm COMPARISON: 05/11/2021 FINDINGS: There is no evidence of pulmonary embolism. There is ectasia of the ascending aorta measuring 40 mm, stable. There is no evidence of dissection. The descending thoracic aorta measures 30 mm, also stable. There is no evidence of mediastinal or hilar mass or adenopathy. There is mild emphysema and mild scarring. There is a pleural base nodule in the left lower lobe measuring 5 mm, stable. Postoperative changes are seen near the GE junction. Limited images of the upper abdomen reveal multiple renal cysts. IMPRESSION: Stable appearance of the chest. No evidence of pulmonary embolism or dissection Reviewed, Interpreted and Dictated by Myke Nash III, MD Transcribed by Marisol Davis Authenticated and [facility]
--- NOTE | 2022-04-14 09:34 | HMH.ITSHM ---
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 []TAMSULOSIN RIVAROXABAN PIOGLITAZONE METFORMIN BISOPROLOL INSULIN HYDROCODONE GABAPENTIN FINASTERIDE DONEPEZIL ASA ALPRAZOLAM ALBUTEROL
== END ==
LOC: RAD 07:57
PROVIDERS: PCP Internal Medicine; Visit Provider Nurse Practitioner
DX: E13.69 Other specified diabetes mellitus with other specified complication (principal); I48.91 Unspecified atrial fibrillation; I71.2 Thoracic aortic aneurysm, without rupture; I95.9 Hypotension, unspecified; R06.09 Other forms of dyspnea; R94.31 Abnormal electrocardiogram [ECG] [EKG]; Z79.4 Long term (current) use of insulin
CPT/HCPCS: 71275; 78452; 93017; A9502; J2785; Q9967

== ENCOUNTER 2022-04-27 02:05 | Emergency (ER) | payer MEDICARE, SELFPAY ==
[2022-04-27 02:05] VITALS: BP 100/57; PULSE 89; RESP 17; TEMP 37.5; O2SAT 92; BMI 31.5
--- NOTE | 2022-04-27 02:23 | XR_ITS ---
PROCEDURE INFORMATION: Exam: XR Chest Exam date and time: 04/27/2022 2:40 AM Age: 82 years old Clinical indication: Cough and fever; Additional info: Cough, fever, travel TECHNIQUE: Imaging protocol: Radiologic exam of the chest. Views: 1 view. COMPARISON: CR XR CHEST PORTABLE 03/26/2022 1:37 PM FINDINGS: Lungs: No focal consolidation or mass. Mild subsegmental atelectasis or scarring right lung base. No significant change since the comparison study. Pleural spaces: Unremarkable. No pleural effusion. No pneumothorax. Heart/Mediastinum: Heart size is mildly enlarged, stable. Bones/joints: Unremarkable. IMPRESSION: No acute findings.
[2022-04-27 02:35] LABS: Coronavirus 19, PCR Not Detected (NotDetected); Influenza A, PCR Not Detected (NotDetected); Influenza B, PCR Not Detected (NotDetected)
[2022-04-27 02:37] LABS: Basophils % 0.9 % (0.1-2.0); Eosinophils # 0.3 K/mm3 (0.0-0.4); Eosinophils % 6.5 % (0.1-12.0); Hematocrit 41.6 % (42.0-52.0); Hemoglobin 13.2 g/dL (14.1-18.0); Lymphocytes # 1.6 K/mm3 (0.7-4.5); Lymphocytes % 40.9 % (10-50); Mean Corpuscular HGB Conc 31.6 g/dL (31.8-35.4); Mean Corpuscular Hemoglobin 28.7 pg (27.0-31.2); Mean Corpuscular Volume 90.8 fl (80-94); Mean Platelet Volume 8.5 fl (7.4-10.4); Monocytes # 0.4 K/mm3 (0.1-1.0); Monocytes % 9.6 % (1.7-9.3); Neutrophils # 1.6 K/mm3 (1.8-7.8); Neutrophils % 42.1 % (37.0-80.0); Platelet Count 169 K/mm3 (142-424); Red Blood Count 4.58 M/mm3 (4.60-6.20); Red Cell Distribution Width 14.3 % (11.5-17.5); White Blood Count 3.8 K/mm3 (4.8-10.8)
[2022-04-27 02:48] LABS: Alanine Aminotransferase 16 U/L (12-78); Albumin Level 3.6 g/dl (3.5-5.0); Albumin/Globulin Ratio 1.3 (1.1-1.8); Alkaline Phosphatase 79 U/L (38-126); Amylase 91 U/L (30-110); Anion Gap 12.9 mEq/L (5-15); Aspartate Amino Transferase 25 U/L (17-59); Bilirubin,Total 0.9 mg/dl (0.2-1.3); Blood Urea Nitrogen 16 mg/dl (9-20); Calcium 8.2 mg/dl (8.4-10.2); Carbon Dioxide 27 mmol/L (22.0-30.0); Chloride 102 mmol/L (98-107); Creatinine Clearance Estimated 79 mL/min (50-200); Estimated Glomerular Filt Rate 71 ml/min (>60); GFR (African American) 86 ML/MIN (>60); Globulin 2.8 g/dL (1.3-3.2); Glucose 136 mg/dl (74-100); Lactic Acid 0.8 mmol/L (0.7-2.1); Lipase 195 U/L (23-300); Potassium 3.9 mmoL/L (3.5-5.1); Sodium 138 mmol/L (136-145); Total Protein,Serum 6.4 g/dl (6.3-8.2)
[2022-04-27 02:53] LABS: C-Reactive Protein 20.6 mg/L (0-4)
--- NOTE | 2022-04-27 02:53 | PC.NURSE ---
PT/FAMILY MADE AWARE OF NEED FOR STOOL AND URINE SAMPLE. PT ASSISTED TO RESTROOM VIA WHEELCHAIR.
[2022-04-27 03:01] LABS: Erythrocyte Sedimentation Rate 12 mm/hr (0-20)
[2022-04-27 03:04] LABS: Procalcitonin 0.045 ng/mL (0.0-2.0)
[2022-04-27 03:09] LABS: Microscopic, Urine URINE MICROSCOPIC (MICROSCOPIC)
[2022-04-27 03:10] LABS: Appearance,Urine CLEAR (Clear); Blood, Urine TRACE-I (Negative); Color,Urine YELLOW (Yellow); Glucose,Urine (UA) Negative (Negative); Ketones,Urine 2+ (Negative); Leukocyte Esterase,Urine Negative (Negative); Nitrate,Urine Negative (Negative); PH,Urine 6.5 (5.0-8.5); Protein,Urine TRACE (Negative); Specific Gravity, Urine 1.025 (1.005-1.030)
[2022-04-27 03:14] LABS: Bilirubin,Urine Negative (Negative)
[2022-04-27 03:15] LABS: Amorphous Sediment,Urine Trace /lpf; Squamous Epithelial Cell,Urine Occasional #/hpf (0-5); WBC,Urine Occasional #/hpf (0-3)
[2022-04-27 03:29] LABS: Hemoglobin A1C 6.3 % (4.0-6.0)
--- NOTE | 2022-04-27 03:44 | HMH.EDNVD ---
Discharge Plan Disposition Patient Disposition: Home, Self-Care Prescriptions Prescriptions: New ondansetron HCl 4 mg Tablet 4 mg PO Q8H PRN (Reason: Nausea) Qty: 5 12RF No Action aspirin [Adult Low Dose Aspirin] 81 mg tablet,delayed release (DR/EC) 81 mg PO DAILY alprazolam 1 MG tablet 1 mg PO BID donepezil 10 MG tablet 10 mg PO HS pioglitazone 45 MG tablet 45 mg PO DAILY tamsulosin 0.4 MG capsule 0.4 mg PO HS bisoprolol fumarate 5 mg tablet 2.5 mg PO DAILY rivaroxaban 20 mg tablet 20 mg PO DAILY hydrocodone-acetaminophen 1 TAB tablet 1 tab PO QID gabapentin 800 MG tablet 800 mg PO BID metformin 1,000 MG tablet 1,000 mg PO BIDWMEAL albuterol sulfate 8.5 GM HFA aerosol inhaler 1 puff IH TIDP PRN (Reason: Shortness Of Breath) finasteride 5 MG tablet 5 mg PO DAILY insulin degludec 100 UNIT/ML insulin pen 28 units SQ DAILY Label Comments: INJECT 28 UNITS SUBCUTANEOUSLY ONCE DAILY Referrals Follow up/Referrals: Chaparro Almanza [Primary Care Provider] - See instructions Clinical Impressions Clinical Impression: Gastritis Instructions Patient Instructions: DI for Nausea -- Adult Discharge ED Provider: Sukh Turner Nausea/Vomiting/Diarrhea HPI General Chief complaint: Nausea/Vomiting/Diarrhea Stated complaint: N/V Time Seen by Provider: 04/27/22 03:45 Mode of Arrival: EMS Source of Information: Patient, Spouse, EMS and Medical Record Limitations: No Limitations Description of Symptoms (Recalled from ER Triage Doc. by RN): PT JUST RETURNED FROM A IN [place]- HE REPORTS FEELING TIRED, AND VOMITING SEVERAL TIMES TODAY. History of Present Illness HPI Narrative: recent return from trip and now has vomiting and achey with dec ambulation complaint: nausea, vomiting and abdominal pain Onset (ago): day(s) Associated Abdominal Pain: Yes Location of pain: diffuse Associated symptoms: denies other symptoms Related Data Home Medications Medication Instructions Recorded Confirmed hydrocodone 10 mg-acetaminophen 1 tab PO QID Pain 01/19/18 04/27/22 325 mg tablet alprazolam 1 mg tablet 1 mg PO BID Anxiety 06/03/18 04/27/22 albuterol sulfate 90 mcg/actuation 1 puff inhalation TIDP PRN 05/12/21 04/27/22 aerosol inhaler Shortness Of Breath finasteride 5 mg tablet 5 mg PO DAILY PROSTATE 05/12/21 04/27/22 gabapentin 800 mg tablet 800 mg PO BID NEUROPATHY 05/12/21 04/27/22 insulin degludec 100 unit/mL (3 28 units SQ DAILY Diabetes 05/12/21 04/27/22 mL) subcutaneous pen metformin 1,000 mg tablet 1,000 mg PO BIDWMEAL Diabetes 05/12/21 04/27/22 donepezil 10 mg tablet 10 mg PO HS MEMORY 03/26/22 04/27/22 pioglitazone 45 mg tablet 45 mg PO DAILY Diabetes 03/26/22 04/27/22 tamsulosin 0.4 mg capsule 0.4 mg PO HS PROSTATE 03/26/22 04/27/22 aspirin 81 mg tablet,delayed 81 mg PO DAILY Blood thinner 04/02/22 04/27/22 release (Adult Low Dose Aspirin) bisoprolol fumarate 5 mg tablet 2.5 mg PO DAILY HEART RATE 04/27/22 04/27/22 rivaroxaban 20 mg tablet 20 mg PO DAILY AFIB 04/27/22 04/27/22 Previous Rx's Medication Instructions Recorded ondansetron HCl 4 mg tablet 4 mg PO Q8H PRN Nausea #5 tabs 04/27/22 Allergies Allergy/AdvReac Type Severity Reaction Status Date / Time No Known Allergies Allergy Verified 04/23/22 10:16 [facility] Medical History (Updated 04/27/22 @ 06:05 by Sukh Turner MD) Abnormal electrocardiography Afib Arthritis Diabetes Dyspnea Hypotension Social History Smoking Status: Never smoker alcohol intake: never current occupational status: disabled Travel in the last 8 weeks: Inside the [place] household members: spouse and children housing: house ROS Obtained: Yes All systems reviewed & no additional complaints except as documented Constitutional Constitutional: Reports fatigue and [place]
--- NOTE | 2022-04-27 04:04 | CT_ITS ---
PROCEDURE INFORMATION: Exam: CT Abdomen And Pelvis Without Contrast Exam date and time: 04/27/2022 4:52 AM Age: 82 years old Clinical indication: Abdominal tenderness and nausea and vomiting; Additional info: Nausea, vomitting, abd pain TECHNIQUE: Imaging protocol: Computed tomography of the abdomen and pelvis without contrast. Radiation optimization: All CT scans at this facility use at least one of these dose optimization techniques: automated exposure control; mA and/or kV adjustment per patient size (includes targeted exams where dose is matched to clinical indication); or iterative reconstruction. COMPARISON: CT ABDOMEN PELVIS WO CON 05/11/2021 1:36 PM FINDINGS: Lungs: There is subsegmental atelectatic changes at the right lung base. Pleural spaces: No pleural effusion. Liver: The liver is unremarkable. No discrete mass. Gallbladder and bile ducts: No calcified gallstones. No ductal dilation. Pancreas: Unremarkable. Spleen: The spleen is normal in size. Adrenal glands: Unremarkable. Kidneys and ureters: There are multiple renal cysts bilaterally which measure up to 7 cm on the right and 6 cm on the left. No evidence of hydronephrosis. Multiple calcifications of the renal breanna may represent nonobstructing stones or vascular calcifications. No significant change since the comparison study. Stomach and bowel: There are postoperative changes at the gastroesophageal junction with small hiatus hernia. Stomach is decompressed. Low-attenuation of the wall of the stomach raises suspicion of gastritis. Small bowel caliber is normal. No evidence of obstruction. There is severe diffuse colonic diverticulosis without CT evidence of acute diverticulitis. Appendix: No evidence of appendicitis. Intraperitoneal space: No free air. No significant fluid collection. Retroperitoneal space: No bulky lymphadenopathy. Vasculature: Unremarkable. No abdominal aortic aneurysm. Lymph nodes: Unremarkable. No enlarged lymph nodes. Urinary bladder: The urinary bladder is decompressed and unremarkable. Reproductive: Unremarkable as visualized. Bones/joints: Unremarkable. No acute osseous abnormality. Soft tissues: Atrophic changes of the right rectus abdominus muscle. IMPRESSION: 1. Findings suspicious for gastritis. 2. Small hiatus hernia. 3. Postoperative changes at the gastroesophageal junction. 4. Severe diffuse colonic diverticulosis without convincing CT evidence of acute diverticulitis. 5. Multiple bilateral renal cysts appear stable. COMMENTS: Consistent with the [employer]'s Incidental Findings Committee white paper (J Am Jacobo Radiol 2018): Any incidental renal lesion less than 1 cm or classified as too small to characterize, or any incidental cystic renal lesion characterized as simple-appearing, is likely benign. No follow-up imaging is recommended for these lesions per consensus recommendations based on imaging criteria.
--- NOTE | 2022-04-27 04:12 | ECG_ITS ---
APPROVED REPORT Exam: Resting ECG HR:78 bpm ECG Measurements Heart Rate 78 AXES QRSd 104 QRS -78 QT 407 T 26 QTc 440 Conclusion ATRIAL FIBRILLATION PATTERN CONSISTENT WITH PULMONARY DISEASE INCOMPLETE RIGHT BUNDLE BRANCH BLOCK [90+ ms QRS DURATION, TERMINAL R IN V1/V2, 40+ ms S IN I/aVL/V4/V5/V6] LEFT ANTERIOR FASCICULAR BLOCK [QRS AXIS <= -45, QR IN I, RS IN II] ABNORMAL ECG UNCONFIRMED REPORT Electronically signed by : Jeremie Schneider MD 04/27/2022 22:36:05
--- NOTE | 2022-04-27 04:20 | PC.NURSE ---
PT CONTINUES TO DENY ABDOMINAL PAIN AND REPORTS THAT HIS NAUSEA HAS IMPROVED. FAMILY REMAINS AT BEDSIDE.
[2022-04-27 04:24] VITALS: BP 101/62; PULSE 83; RESP 16; TEMP 37.2; O2SAT 95
[2022-04-27 04:28] LABS: Troponin I < 0.01 ng/ml (0.00-0.034)
[2022-04-27 05:46] LABS: Troponin I < 0.01 ng/ml (0.00-0.034)
[2022-04-27 06:06] VITALS: BP 113/87; PULSE 86; RESP 17; TEMP 36.7; O2SAT 95
== END 2022-04-27 06:27 | disposition home or self-care (01) ==
PROVIDERS: Emergency Provider Emergency Medicine; PCP Internal Medicine
DX: K29.70 Gastritis, unspecified, without bleeding (principal)
CPT/HCPCS: 36415; 71045; 74176; 80053; 81001; 82150; 83036; 83605; 83690; 84145; 84484; 85025; 85651; 86140; 93005; 96361; 96374; 96375; 99284; C9803; J2405; U0003; U0005

== ENCOUNTER 2022-06-26 13:48 | Emergency (ER) | payer MEDICARE, SELFPAY ==
[2022-06-26] VITALS (12 sets, daily range): BP systolic 98–121; BP diastolic 57–74; PULSE 69–84; RESP 13–20; TEMP 36.9; O2SAT 96–98; BMI 32.3
--- NOTE | 2022-06-26 14:16 | CT_ITS ---
FINAL REPORT TECHNIQUE: Thin section axial CT images were performed from the lung apices to the upper abdomen after the administration of IV contrast. 3-D and MIP reconstructions performed. This study was performed with techniques to keep radiation doses as low as reasonably achievable (ALARA). Individualized dose reduction techniques using automated exposure control or adjustment of mA and/or kV according to the patient''s size were employed. CLINICAL HISTORY: hemoptysis COMPARISON: 03/18/2022 FINDINGS: There is no evidence for pulmonary embolism. The thoracic aorta is patent without evidence of dissection. There is no axillary adenopathy. There is no mediastinal or hilar adenopathy. The heart size is normal. There is no pleural or pericardial effusion. There is dense rounded opacity in the periphery of the inferior right upper lobe measuring 5.5 x 4.5 cm in AP and transverse dimension. There appears to be a low attenuation central region with partial cavitation. Findings are concerning for abscess or necrotic neoplasm. This was not clearly seen on the previous exam. Given the relatively rapid appearance, favor inflammatory process over neoplasia. Limited images of the upper abdomen are unremarkable. IMPRESSION: Rounded opacity in the inferior right upper lobe, favor inflammatory process over neoplasia as detailed above. Reviewed, Interpreted and Dictated by Kuldeep Giang MD Transcribed by Marisol Davis Authenticated and [facility]
--- NOTE | 2022-06-26 14:16 | CT_ITS ---
FINAL REPORT TECHNIQUE: Thin section axial CT with IV contrast supplemented with multiplanar reconstruction under CT angiogram protocol. This study was performed with techniques to keep radiation doses as low as reasonably achievable (ALARA). Individualized dose reduction techniques using automated exposure control or adjustment of mA and/or kV according to the patient''s size were employed. NASCET criteria was utilized during interpretation. CLINICAL HISTORY: hemoptysis FINDINGS: The paranasal sinuses are well aerated. The carotid bifurcations are widely patent. There is no significant cervical adenopathy. The vertebral arteries are patent and symmetric. IMPRESSION: No significant carotid stenosis. Reviewed, Interpreted and Dictated by Kuldeep Giang MD Transcribed by Marisol Davis Authenticated and [facility]
--- NOTE | 2022-06-26 14:17 | CT_ITS ---
FINAL REPORT TECHNIQUE: Pre-and postcontrast images of the abdomen were performed by computed tomography. Extensive 3-D reconstruction images were performed. A CTA was performed. This study was performed with techniques to keep radiation doses as low as reasonably achievable (ALARA). Individualized dose reduction techniques using automated exposure control or adjustment of mA and/or kV according to the patient''s size were employed. CLINICAL HISTORY: hematemasis COMPARISON: 04/27/2022 FINDINGS: ABDOMEN: There is a sliding-type hiatal hernia. Surgical clips are seen at the GE junction. Liver parenchyma is homogeneous. The gallbladder is contracted. The spleen, pancreas, and adrenals are unremarkable. There are a multitude of well-circumscribed benign-appearing cysts in both kidneys. Individual cysts measure up to 7.2 cm in diameter. These are unchanged from previous. There is moderate sigmoid diverticulosis without evidence of diverticulitis, unchanged from previous. CTA: There is early bifurcation of the right renal artery. There is a single left renal artery. There is mild vascular calcification in the proximal left renal artery. There is no significant stenosis. The celiac axis and SMA are patent. IMPRESSION: Sliding-type hiatal hernia. Multiple bilateral renal cysts, unchanged from previous. Diverticulosis without evidence of diverticulitis. No evidence of significant stenosis. Reviewed, Interpreted and Dictated by Kuldeep Giang MD Transcribed by Marisol Davis Authenticated and [facility]
--- NOTE | 2022-06-26 14:29 | ECG_ITS ---
APPROVED REPORT Exam: Resting ECG HR:88 bpm ECG Measurements Heart Rate 88 AXES QRSd 98 QRS -87 QT 360 T 19 QTc 405 Conclusion ATRIAL FIBRILLATION INCOMPLETE RIGHT BUNDLE BRANCH BLOCK [90+ ms QRS DURATION, TERMINAL R IN V1/V2, 40+ ms S IN I/aVL/V4/V5/V6] LEFT ANTERIOR FASCICULAR BLOCK [QRS AXIS <= -45, QR IN I, RS IN II] ABNORMAL ECG UNCONFIRMED REPORT Electronically signed by : Jeremie Schneider MD 06/26/2022 19:58:38
[2022-06-26 14:48] LABS: Coronavirus 19, PCR Not Detected (NotDetected); Influenza A, PCR Not Detected (NotDetected); Influenza B, PCR Not Detected (NotDetected)
[2022-06-26 14:50] LABS: Chloride 96 mmol/L (98-107)
[2022-06-26 14:51] LABS: Potassium 4.5 mmoL/L (3.5-5.1); Sodium 138 mmol/L (136-145)
[2022-06-26 14:53] LABS: Basophils # 0.1 K/mm3 (0-0.2); Basophils % 0.9 % (0.1-2.0); Eosinophils # 0.6 K/mm3 (0.0-0.4); Eosinophils % 9.9 % (0.1-12.0); Hematocrit 33.7 % (42.0-52.0); Hemoglobin 10.9 g/dL (14.1-18.0); Lymphocytes # 1.9 K/mm3 (0.7-4.5); Lymphocytes % 29.9 % (10-50); Mean Corpuscular HGB Conc 32.2 g/dL (31.8-35.4); Mean Corpuscular Hemoglobin 29.6 pg (27.0-31.2); Mean Corpuscular Volume 91.7 fl (80-94); Mean Platelet Volume 7.7 fl (7.4-10.4); Monocytes # 0.3 K/mm3 (0.1-1.0); Monocytes % 4.7 % (1.7-9.3); Neutrophils # 3.4 K/mm3 (1.8-7.8); Neutrophils % 54.6 % (37.0-80.0); Platelet Count 230 K/mm3 (142-424); Red Blood Count 3.67 M/mm3 (4.60-6.20); Red Cell Distribution Width 15.2 % (11.5-17.5); White Blood Count 6.3 K/mm3 (4.8-10.8)
[2022-06-26 14:54] LABS: Alanine Aminotransferase 14 U/L (12-78); Albumin Level 3.6 g/dl (3.5-5.0); Albumin/Globulin Ratio 1.4 (1.1-1.8); Alkaline Phosphatase 65 U/L (38-126); Anion Gap 14.5 mEq/L (5-15); Aspartate Amino Transferase 22 U/L (17-59); Bilirubin,Total 0.2 mg/dl (0.2-1.3); Blood Urea Nitrogen 19 mg/dl (9-20); Carbon Dioxide 32 mmol/L (22.0-30.0); Creatinine Clearance Estimated 73 mL/min (50-200); Estimated Glomerular Filt Rate 64 ml/min (>60); GFR (African American) 77 ML/MIN (>60); Globulin 2.6 g/dL (1.3-3.2); Glucose 119 mg/dl (74-100); Lipase 80 U/L (23-300); Total Protein,Serum 6.2 g/dl (6.3-8.2)
--- NOTE | 2022-06-26 15:13 | HMH.EDGENADL ---
Discharge Plan Disposition Patient Disposition: Xfer Short-Term Hosp Condition: Fair Chief Complaint: Nausea/Vomiting/Diarrhea Prescriptions Prescriptions: No Action aspirin [Adult Low Dose Aspirin] 81 mg tablet,delayed release (DR/EC) 81 mg PO DAILY alprazolam 1 MG tablet 1 mg PO BID donepezil 10 MG tablet 10 mg PO HS pioglitazone 45 MG tablet 45 mg PO DAILY tamsulosin 0.4 MG capsule 0.4 mg PO HS bisoprolol fumarate 5 mg tablet 2.5 mg PO DAILY rivaroxaban 20 mg tablet 20 mg PO DAILY ondansetron HCl 4 mg Tablet 4 mg PO Q8H PRN (Reason: Nausea) Qty: 5 12RF hydrocodone-acetaminophen 1 TAB tablet 1 tab PO QID gabapentin 800 MG tablet 800 mg PO BID metformin 1,000 MG tablet 1,000 mg PO BIDWMEAL albuterol sulfate 8.5 GM HFA aerosol inhaler 1 puff IH TIDP PRN (Reason: Shortness Of Breath) finasteride 5 MG tablet 5 mg PO DAILY insulin degludec 100 UNIT/ML insulin pen 28 units SQ DAILY Label Comments: INJECT 28 UNITS SUBCUTANEOUSLY ONCE DAILY Referrals Follow up/Referrals: Chaparro Almanza [Primary Care Provider] - See instructions Clinical Impressions Clinical Impression: Massive hemoptysis, Abscess of lung Stand Alone Forms Stand Alone Forms: Transfer Record - ED Discharge ED Provider: Des Patel General Adult HPI General Chief complaint: Nausea/Vomiting/Diarrhea Stated complaint: Spitting up blood for about a week Time Seen by Provider: 06/26/22 14:00 Mode of Arrival: Ambulatory Source of Information: Patient Limitations: No Limitations Description of Symptoms (Recalled from ER Triage Doc. by RN): Pt reports coughing up blood for over a week . Pt reports blood is bright red in color. pt reports at times vomits up blood also. Pt reports had contacted pcp earlier in this week was supposed to have CT scan but was never contacted to get it set up per pts . Pt reports is on blood thinners, hx of afib. History of Present Illness HPI narrative: Patient is a 82-year-old male with a past medical history of atrial fibrillation on anticoagulation, hiatal hernia, diabetes, a sending aortic aneurysm who presents with concern for hemoptysis. He says that for the last week he has been coughing up blood. He says that it is bright red in color. He says that sometimes he will vomit no blood later on that appears little darker. He says that sometimes it will be almost a couple blood. He denies any melena. He denies any chest pain or shortness of breath. He says that he called his PCP about this and was positive his CT scan but has not set it up. Denies any pleuritic chest pain. Denies any orthopnea. He says that he did smoke for many years but quit a few years ago. Related Data Home Medications Medication Instructions Recorded Confirmed hydrocodone 10 mg-acetaminophen 1 tab PO QID Pain 01/19/18 04/27/22 325 mg tablet alprazolam 1 mg tablet 1 mg PO BID Anxiety 06/03/18 04/27/22 albuterol sulfate 90 mcg/actuation 1 puff inhalation TIDP PRN 05/12/21 04/27/22 aerosol inhaler Shortness Of Breath finasteride 5 mg tablet 5 mg PO DAILY PROSTATE 05/12/21 04/27/22 gabapentin 800 mg tablet 800 mg PO BID NEUROPATHY 05/12/21 04/27/22 insulin degludec 100 unit/mL (3 28 units SQ DAILY Diabetes 05/12/21 04/27/22 mL) subcutaneous pen metformin 1,000 mg tablet 1,000 mg PO BIDWMEAL Diabetes 05/12/21 04/27/22 donepezil 10 mg tablet 10 mg PO HS MEMORY 03/26/22 04/27/22 pioglitazone 45 mg tablet 45 mg PO DAILY Diabetes 03/26/22 04/27/22 tamsulosin 0.4 mg capsule 0.4 mg PO HS PROSTATE 03/26/22 04/27/22 aspirin 81 mg tablet,delayed 81 mg PO DAILY Blood thinner 04/02/22 04/27/22 release (Adult Low Dose Aspirin) bisoprolol fumarate 5 mg tablet 2.5 mg PO DAILY HEART RATE 04/27/22 04/27/22 rivaroxaban 20 mg tablet 20 mg PO DAILY AFIB 04/27/22 04/27/22 Previous Rx's Medication Instructions Recorded ondansetron HC
--- NOTE | 2022-06-26 16:22 | PC.NURSE ---
pt up to restroom
--- NOTE | 2022-06-26 16:49 | PC.NURSE ---
STANLEY PAYAN spoke with Dr. Soria and this time.
--- NOTE | 2022-06-26 17:06 | PC.NURSE ---
pt ct images sent to [facility]
--- NOTE | 2022-06-26 17:06 | PC.NURSE ---
[facility] called for transfer center, maddison advised several calls ahead of us, they will call back soon as possible.
--- NOTE | 2022-06-26 17:41 | PC.NURSE ---
STANLEY PAYAN speaking with (Dr. Romero)
--- NOTE | 2022-06-26 17:51 | PC.NURSE ---
calling [facility] for transfer
--- NOTE | 2022-06-26 18:09 | PC.NURSE ---
Dr Patel on with MD
--- NOTE | 2022-06-26 18:21 | PC.NURSE ---
pt in recliner at at this time, call light within reach. Pt and family updated on current POC- waiting to hear back from [facility] about a bed status and ER MD is on the phone with [facility] about transfer.
--- NOTE | 2022-06-26 18:24 | PC.NURSE ---
Dr. Patel states pt is accepted to per Dr. Kraft. They do not currently have a bed available but they are contacting their housekeeping supervisor hotel to try and get a bed opened up for pt and they will call us back.
--- NOTE | 2022-06-26 18:53 | PC.NURSE ---
Addendum entered by Anna Cornejo RN 06/26/22 18:55: waiting admissions specialist back Original Note: contacting [facility] for transport per ER MD request
--- NOTE | 2022-06-26 18:54 | PC.NURSE ---
pt accepted unit 8 room [id number] number for report [phone]
--- NOTE | 2022-06-26 19:01 | PC.NURSE ---
attempted to call report to [facility], spoke with staff who requested that they call me back to receive report, they are doing shift change and have not assigned this pt to a nurse yet.
--- NOTE | 2022-06-26 19:16 | PC.NURSE ---
per [facility] transfer center [facility] and [facility] have all declined because of weather ER is aware, will be contacting [facility] for transport
--- NOTE | 2022-06-26 19:24 | PC.NURSE ---
shift change report given to krista faulknre and krista caban at this time.
--- NOTE | 2022-06-26 19:56 | PC.NURSE ---
Pt sitting up in chair. No complaints at this time. Waiting for ambulance transport. No ambulance available at this time.
--- NOTE | 2022-06-26 20:32 | PC.NURSE ---
Family at [facility] on their way for ambulance transport.
== END 2022-06-26 20:31 | disposition short-term general hospital (02) ==
PROVIDERS: Emergency Provider Student in an Organized Health Care Education/Training Program; PCP Internal Medicine
DX: R04.2 Hemoptysis (principal); J85.2 Abscess of lung without pneumonia; Z79.82 Long term (current) use of aspirin; Z79.899 Other long term (current) drug therapy; Z79.85 Long-term (current) use of injectable non-insulin antidiabetic drugs; I48.91 Unspecified atrial fibrillation; M19.90 Unspecified osteoarthritis, unspecified site; E11.9 Type 2 diabetes mellitus without complications; I95.9 Hypotension, unspecified
CPT/HCPCS: 70498; 71275; 74174; 74177; 80053; 83690; 85025; 93005; 96365; 96367; 96375; 99285; C9803; J0696; Q9967; U0003; U0005

== ENCOUNTER 2022-12-05 00:55 | Emergency (ER) | payer MEDICARE, SELFPAY ==
[2022-12-05 01:14] LABS: Coronavirus 19, PCR Not Detected (NotDetected); Influenza A, PCR Not Detected (NotDetected); Influenza B, PCR Not Detected (NotDetected)
[2022-12-05 01:24] VITALS: BP 89/45; PULSE 104; RESP 16; TEMP 37.3; O2SAT 98; BMI 33.0
--- NOTE | 2022-12-05 01:27 | XR_ITS ---
PROCEDURE INFORMATION: Exam: XR Chest Exam date and time: 12/05/2022 1:38 AM Age: 82 years old Clinical indication: Cough TECHNIQUE: Imaging protocol: Radiologic exam of the chest. Views: 2 views. COMPARISON: CR XR CHEST PORTABLE 04/27/2022 2:40 AM FINDINGS: Tubes, catheters and devices: Surgical clips at the epigastric region. Lungs: Linear right mid and bilateral lower lung opacities favor subsegmental atelectasis. Question pulmonary hyperinflation. Pleural spaces: Unremarkable. No pleural effusion. No pneumothorax. Heart/Mediastinum: Unremarkable. No cardiomegaly. Bones/joints: Old left rib fracture evident. Thoracic spondylosis is present. IMPRESSION: 1. Linear right mid and bilateral lower lung opacities favor subsegmental atelectasis. 2. Question pulmonary hyperinflation. Recommend correlation with smoking history.
[2022-12-05 01:34] LABS: Basophils # 0.1 K/mm3 (0-0.2); Basophils % 0.6 % (0.1-2.0); Eosinophils # 0.4 K/mm3 (0.0-0.4); Eosinophils % 5.4 % (0.1-12.0); Hemoglobin 12.2 g/dL (14.1-18.0); Lymphocytes # 1.5 K/mm3 (0.7-4.5); Mean Corpuscular HGB Conc 31.3 g/dL (31.8-35.4); Mean Corpuscular Volume 92.6 fl (80-94); Monocytes # 0.5 K/mm3 (0.1-1.0); Neutrophils # 5.2 K/mm3 (1.8-7.8); Neutrophils % 68.1 % (37.0-80.0); Platelet Count 136 K/mm3 (142-424); Red Blood Count 4.21 M/mm3 (4.60-6.20); Red Cell Distribution Width 14.5 % (11.5-17.5); White Blood Count 7.7 K/mm3 (4.8-10.8)
[2022-12-05 01:41] LABS: Alanine Aminotransferase 16 U/L (12-78); Albumin/Globulin Ratio 1.5 (1.1-1.8); Alkaline Phosphatase 55 U/L (38-126); Anion Gap 13.8 mEq/L (5-15); Aspartate Amino Transferase 26 U/L (17-59); Bilirubin,Total 0.8 mg/dl (0.2-1.3); Calcium 8.3 mg/dl (8.4-10.2); Carbon Dioxide 27 mmol/L (22.0-30.0); Chloride 99 mmol/L (98-107); Globulin 2.6 g/dL (1.3-3.2); Glucose 176 mg/dl (74-100); Potassium 4.8 mmoL/L (3.5-5.1); Sodium 135 mmol/L (136-145); Total Protein,Serum 6.6 g/dl (6.3-8.2)
[2022-12-05 01:47] LABS: Microscopic, Urine URINE MICROSCOPIC (MICROSCOPIC)
[2022-12-05 01:47] LABS: Blood Urea Nitrogen 23 mg/dl (9-20); C-Reactive Protein 101.5 mg/L (0-4); Creatinine Clearance Estimated 59 mL/min (50-200); Estimated Glomerular Filt Rate 48 ml/min (>60); GFR (African American) 59 ML/MIN (>60)
[2022-12-05 01:48] LABS: Appearance,Urine TURBID (Clear); Blood, Urine 3+ (Negative); Color,Urine DK YELLOW (Yellow); Glucose,Urine (UA) Negative (Negative); Ketones,Urine TRACE (Negative); Leukocyte Esterase,Urine 2+ (Negative); Nitrate,Urine POSITIVE (Negative); PH,Urine 5.5 (5.0-8.5); Protein,Urine 2+ (Negative); Specific Gravity, Urine >= 1.030 (1.005-1.030)
[2022-12-05 01:54] LABS: Bilirubin,Urine 1+ (Negative)
[2022-12-05 02:01] LABS: Procalcitonin 3.51 ng/mL (0.0-2.0)
[2022-12-05 02:04] VITALS: BP 98/52; PULSE 109; O2SAT 92
[2022-12-05 02:04] LABS: Bacteria,Urine 2+ /lpf; RBC,Urine Occasional #/hpf (0-3); Squamous Epithelial Cell,Urine Occasional #/hpf (0-5); WBC,Urine 50-100 #/hpf (0-3)
[2022-12-05 02:16] LABS: Erythrocyte Sedimentation Rate 14 mm/hr (0-20)
[2022-12-05 02:30] VITALS: BP 98/53; PULSE 95; O2SAT 92
--- NOTE | 2022-12-05 03:23 | PC.NURSE ---
Rounded on pt. No needs or complaints voiced at this time.
[2022-12-05 03:48] LABS: Lactic Acid 1.8 mmol/L (0.7-2.1)
--- NOTE | 2022-12-05 04:30 | HMH.EDURI ---
Discharge Plan Disposition Patient Disposition: Home, Self-Care Prescriptions Prescriptions: New cefdinir [cefdinir] 300 mg capsule 300 mg PO BID Qty: 14 0RF No Action alprazolam 1 MG tablet 0.5 mg PO BID donepezil 10 MG tablet 10 mg PO HS pioglitazone 45 MG tablet 45 mg PO DAILY tamsulosin 0.4 MG capsule 0.4 mg PO HS rivaroxaban 20 mg tablet 20 mg PO DAILY citalopram 10 mg tablet 10 mg PO DAILY Label Comments: TAKE 1 TABLET BY MOUTH ONCE DAILY midodrine 5 mg tablet 5 mg PO TID Label Comments: TAKE 1 TABLET BY MOUTH THREE TIMES DAILY BEFORE MEAL(S) esomeprazole magnesium 40 mg capsule,delayed release(DR/EC) 40 mg PO DAILY Label Comments: TAKE 1 CAPSULE BY MOUTH ONCE DAILY insulin degludec [Tresiba FlexTouch U-100] 100 unit/mL (3 mL) insulin pen 20 unit SQ DAILY hydrocodone-acetaminophen 1 TAB tablet 1 tab PO QID gabapentin 800 MG tablet 800 mg PO BID metformin 1,000 MG tablet 1,000 mg PO BIDWMEAL finasteride 5 MG tablet 5 mg PO DAILY Referrals Follow up/Referrals: Provider,Referral, MD [Primary Care Provider] - See instructions Clinical Impressions Clinical Impression: UTI (urinary tract infection), SIRS (systemic inflammatory response syndrome) Instructions Patient Instructions: DI for Urinary Tract Infection (UTI) Discharge ED Provider: Yue (ED)Sukh URI/Sore Throat HPI General Chief Complaint: Upper Respiratory Infection Stated Complaint: Chills,Fever Time Seen by Provider: 12/05/22 03:15 Mode of Arrival: Ambulatory Source of Information: Patient, Relative and Medical Record Limitations: No Limitations Description of Symptoms (Recalled from ER Triage Doc. by RN): pt states that he has had chills and a fever for several days with a productive cough. Also c/o inc urination and weakness History of Present Illness HPI Narrative: fever/chills over the last few days with inc urination - no bleeding MD Complaint: fever Onset (ago): day(s) Duration: intermittent Severity: moderate Able to tolerate fluids by mouth: Yes Associated symptoms: chills Treatments prior to arrival: acetaminophen Related Data Home Medications Medication Instructions Recorded Confirmed hydrocodone 10 mg-acetaminophen 1 tab PO QID Pain 01/19/18 12/05/22 325 mg tablet alprazolam 1 mg tablet 0.5 mg PO BID Anxiety 06/03/18 12/05/22 finasteride 5 mg tablet 5 mg PO DAILY PROSTATE 05/12/21 12/05/22 gabapentin 800 mg tablet 800 mg PO BID NEUROPATHY 05/12/21 12/05/22 metformin 1,000 mg tablet 1,000 mg PO BIDWMEAL Diabetes 05/12/21 12/05/22 donepezil 10 mg tablet 10 mg PO HS MEMORY 03/26/22 12/05/22 pioglitazone 45 mg tablet 45 mg PO DAILY Diabetes 03/26/22 12/05/22 tamsulosin 0.4 mg capsule 0.4 mg PO HS PROSTATE 03/26/22 12/05/22 rivaroxaban 20 mg tablet 20 mg PO DAILY AFIB 04/27/22 12/05/22 citalopram 10 mg tablet 10 mg PO DAILY Anxiety 12/05/22 12/05/22 esomeprazole magnesium 40 mg 40 mg PO DAILY gerd 12/05/22 12/05/22 capsule,delayed release insulin degludec 100 unit/mL (3 20 unit SQ DAILY Diabetes 12/05/22 12/05/22 mL) subcutaneous pen (Tresiba FlexTouch U-100 insulin) midodrine 5 mg tablet 5 mg PO TID low blood pressure 12/05/22 12/05/22 Previous Rx's Medication Instructions Recorded cefdinir 300 mg capsule 300 mg PO BID #14 caps 12/05/22 Allergies Allergy/AdvReac Type Severity Reaction Status Date / Time No Known Allergies Allergy Verified 04/23/22 10:16 [facility] Disclaimer: The information contained in this section may have been updated after the patient was seen, as this information can be updated by other users. Medical History (Updated 12/05/22 @ 04:49 by Sukh Turner (RIMA)MD) Abnormal electrocardiography Afib Arthritis Diabetes Dyspnea Hypotension Social History Smoking Status: Former smoker alcohol int
[2022-12-05 04:53] VITALS: BP 100/55; PULSE 94; RESP 18; TEMP 36.6; O2SAT 99
--- NOTE | 2022-12-05 04:56 | PC.NURSE ---
Dr. Turner at
--- NOTE | 2022-12-06 18:14 | PC.NURSE ---
notified dr. perez(ER MD on shift today) of culture preliminary results. NO new orders for pt at this time.
== END 2022-12-05 05:00 | disposition home or self-care (01) ==
PROVIDERS: Emergency Provider Emergency Medicine
DX: N39.0 Urinary tract infection, site not specified (principal); R65.10 Systemic inflammatory response syndrome (SIRS) of non-infectious origin without acute organ dysfunction; Z87.891 Personal history of nicotine dependence
CPT/HCPCS: 71046; 80053; 81001; 83605; 84145; 85025; 85651; 86140; 87040; 87077; 87086; 87088; 87186; 96360; 99284; 99285; C9803; J0696; U0003; U0005

== ENCOUNTER → 2023-03-18 12:20 | Outpatient (POV) | payer MEDICARE, SELFPAY | PROVIDERS: Visit Provider Specialist/Technologist | DX: Z00.00 Encounter for general adult medical examination without abnormal findings (principal) ==

== ENCOUNTER 2023-11-26 17:50 | Inpatient (IN) | payer MEDICARE, SELFPAY ==
[2023-11-26 17:50] VITALS: BP 128/81; PULSE 81; RESP 18; TEMP 37.2; O2SAT 95; BMI 36.2
--- NOTE | 2023-11-26 18:01 | CT_ITS ---
PROCEDURE INFORMATION: Exam: CTA Abdomen and Pelvis With Contrast Exam date and time: 11/26/2023 7:00 PM Age: 83 years old Clinical indication: Injury or trauma; Fall; Blunt trauma; Pelvic area; Left; Additional info: Trauma, critical injury suspected TECHNIQUE: Imaging protocol: Computed tomographic angiography of the abdomen and pelvis with contrast. Exam focused on the arteries. 3D rendering (Not supervised by radiologist): MIP and/or 3D reconstructed images were created by the technologist. Radiation optimization: All CT scans at this facility use at least one of these dose optimization techniques: automated exposure control; mA and/or kV adjustment per patient size (includes targeted exams where dose is matched to clinical indication); or iterative reconstruction. Contrast material: ISOVUE; Contrast volume: 100 ml; Contrast route: INTRAVENOUS (IV); COMPARISON: CT ANGIO ABDOMEN PELVIS 06/26/2022 4:19 PM FINDINGS: Diaphragm: Hiatal hernia. Aorta: Mild to moderate atherosclerosis. No aortic aneurysm. No aortic dissection. Celiac trunk and mesenteric arteries: Mild atherosclerosis. No occlusion or significant stenosis. Renal arteries: Mild left renal artery atherosclerosis. No occlusion or significant stenosis. Right iliac arteries: Mild to moderate atherosclerosis. No occlusion or significant stenosis. Left iliac arteries: Mild to moderate atherosclerosis. No occlusion or significant stenosis. Liver: No mass. Gallbladder and bile ducts: Unremarkable. No calcified stones. No ductal dilation. Pancreas: Fatty infiltration. No mass. No ductal dilation. Spleen: Unremarkable. No splenomegaly. Adrenal glands: Unremarkable. No mass. Kidneys and ureters: Stable bilateral renal cysts. No solid mass. No hydronephrosis. Stomach and bowel: Colonic diverticulosis. No obstruction. No mucosal thickening. Appendix: No evidence of appendicitis. Intraperitoneal space: Unremarkable. No free air. No significant fluid collection. Lymph nodes: Unremarkable. No enlarged lymph nodes. Urinary bladder: Unremarkable. No mass. Reproductive: Unremarkable as visualized. Bones/joints: Multi fragmented nondisplaced intertrochanteric fracture. Soft tissues: Minimal left lateral hip soft tissue swelling. IMPRESSION: 1. No acute posttraumatic findings within the abdomen. 2. Multi fragmented nondisplaced intertrochanteric fracture.
--- NOTE | 2023-11-26 18:01 | CT_ITS ---
PROCEDURE INFORMATION: Exam: CT Thoracic Spine Without Contrast Exam date and time: 11/26/2023 6:51 PM Age: 83 years old Clinical indication: Injury or trauma; Fall; Blunt trauma (contusions or hematomas); Additional info: Trauma, critical injury suspected TECHNIQUE: Imaging protocol: Computed tomography of the thoracic spine without contrast. Radiation optimization: All CT scans at this facility use at least one of these dose optimization techniques: automated exposure control; mA and/or kV adjustment per patient size (includes targeted exams where dose is matched to clinical indication); or iterative reconstruction. COMPARISON: CT CERVICAL SPINE WO CON 11/26/2023 6:48 PM FINDINGS: Bones/joints: No acute fracture. Left lateral tilt. Multilevel degenerative changes. Varying degrees of neural foraminal narrowing at the mid to lower thoracic spine. No severe spinal canal stenosis. Soft tissues: Unremarkable. IMPRESSION: No acute osseous findings.
--- NOTE | 2023-11-26 18:01 | XR_ITS ---
PROCEDURE INFORMATION: Exam: XR Left Femur Exam date and time: 11/26/2023 6:39 PM Age: 83 years old Clinical indication: Pain and injury or trauma; Fall; Blunt trauma; Hip; Left; Additional info: Fall, lt hip pain TECHNIQUE: Imaging protocol: Radiologic exam of the left femur. Views: 2 views. COMPARISON: CR XR HIP LT 2-3V W/PELVIS 11/26/2023 6:39 PM FINDINGS: Bones/joints: Intertrochanteric fracture left hip. Tricompartmental degenerative changes left knee. Soft tissues: Unremarkable. IMPRESSION: 1. Intertrochanteric fracture left hip. 2. Tricompartmental degenerative changes left knee.
--- NOTE | 2023-11-26 18:01 | CT_ITS ---
PROCEDURE INFORMATION: Exam: CT Pelvis Without Contrast; Skeletal Exam date and time: 11/26/2023 6:56 PM Age: 83 years old Clinical indication: Injury or trauma; Fall; Blunt trauma (contusions or hematomas); Left; Hip; Additional info: Trauma, critical injury suspected TECHNIQUE: Imaging protocol: Computed tomography of the pelvis without contrast. Exam focused on the skeleton. Radiation optimization: All CT scans at this facility use at least one of these dose optimization techniques: automated exposure control; mA and/or kV adjustment per patient size (includes targeted exams where dose is matched to clinical indication); or iterative reconstruction. COMPARISON: CT ANGIO ABDOMEN PELVIS 06/26/2022 4:19 PM FINDINGS: Bones/joints: Multi fragmented nondisplaced left intertrochanteric fracture. No dislocation. Degenerative changes of the bilateral hips and sacroiliac joints. Soft tissues: Unremarkable. IMPRESSION: Multi fragmented nondisplaced left intertrochanteric fracture.
--- NOTE | 2023-11-26 18:01 | XR_ITS ---
PROCEDURE INFORMATION: Exam: XR Left Hip Exam date and time: 11/26/2023 6:39 PM Age: 83 years old Clinical indication: Pain and injury or trauma; Fall; Blunt trauma (contusions or hematomas); Hip pain; Left hip; Additional info: Pain, fall, lt hip pain TECHNIQUE: Imaging protocol: Radiologic exam of the left hip. Views: 2 or 3 views hip with pelvis when performed. COMPARISON: CT ANGIO ABDOMEN PELVIS 06/26/2022 4:19 PM FINDINGS: Bones/joints: Intertrochanteric fracture left hip nondisplaced. Soft tissues: Unremarkable. IMPRESSION: Intertrochanteric fracture left hip nondisplaced.
--- NOTE | 2023-11-26 18:01 | CT_ITS ---
PROCEDURE INFORMATION: Exam: CT Lumbar Spine Without Contrast Exam date and time: 11/26/2023 6:53 PM Age: 83 years old Clinical indication: Injury or trauma; Fall; Blunt trauma (contusions or hematomas); Additional info: Trauma, critical injury suspected TECHNIQUE: Imaging protocol: Computed tomography of the lumbar spine without contrast. Radiation optimization: All CT scans at this facility use at least one of these dose optimization techniques: automated exposure control; mA and/or kV adjustment per patient size (includes targeted exams where dose is matched to clinical indication); or iterative reconstruction. COMPARISON: CT THORACIC SPINE WO CON 11/26/2023 6:51 PM FINDINGS: Bones/joints: Lumbar vertebrae normal in height. No acute fracture. Left lateral tilt. Multilevel degenerative changes. Varying degrees of neural foraminal narrowing. No severe spinal canal stenosis. Soft tissues: Unremarkable. IMPRESSION: No acute osseous findings.
--- NOTE | 2023-11-26 18:01 | CT_ITS ---
PROCEDURE INFORMATION: Exam: CTA Chest With Contrast Exam date and time: 11/26/2023 7:00 PM Age: 83 years old Clinical indication: Injury or trauma; Fall; Blunt trauma (contusions or hematomas); Additional info: Trauma, critical injury suspected TECHNIQUE: Imaging protocol: Computed tomographic angiography of the chest with contrast. Exam focused on the arteries. 3D rendering (Not supervised by radiologist): MIP and/or 3D reconstructed images were created by the technologist. Radiation optimization: All CT scans at this facility use at least one of these dose optimization techniques: automated exposure control; mA and/or kV adjustment per patient size (includes targeted exams where dose is matched to clinical indication); or iterative reconstruction. Contrast material: ISOVUE; Contrast volume: 100 ml; Contrast route: INTRAVENOUS (IV); COMPARISON: CT ANGIO CHEST PE PROTOCOL 06/26/2022 4:19 PM FINDINGS: Pulmonary arteries: Normal. No pulmonary emboli. Aorta: Mild atherosclerosis. Mild aneurysmal dilatation of the ascending thoracic aorta measuring 4.1 cm in caliber. No aortic dissection. Lungs: Minimal emphysema. Mild scarring along the minor fissure. Additional focal areas of mild subsegmental atelectasis and/or scarring. No consolidation. Few left upper lobe solid pulmonary nodules measuring up to 5 mm. Pleural spaces: Unremarkable. No pneumothorax. No pleural effusion. Heart: Cardiomegaly. No pericardial effusion. Coronary arteries: Coronary artery calcifications. Lymph nodes: Unremarkable. No enlarged lymph nodes. Diaphragm: Hiatal hernia. Bones/joints: Old left posterior 5th rib fracture. No acute fracture. Soft tissues: Moderate left and mild right gynecomastia. IMPRESSION: 1. No acute posttraumatic findings within the chest. 2. Few left upper lobe solid pulmonary nodules measuring up to 5 mm. For patients at low risk (minimal or absent history of smoking and of other known risk factors), no routine follow-up is indicated. For patients at high risk (history of smoking or of other known risk factors), consider optional CT Chest at 12 months. (Reference: Radha) REFERENCES: Radha Antunez et al. Guidelines for Management of Incidental Pulmonary Nodules Detected on CT Images: From the Fleischner Society 2017. Radiology. 2017;284(1):228-243.
--- NOTE | 2023-11-26 18:01 | CT_ITS ---
PROCEDURE INFORMATION: Exam: CT Head Without Contrast Exam date and time: 11/26/2023 6:48 PM Age: 83 years old Clinical indication: Injury or trauma; Fall; Blunt trauma (contusions or hematomas); Additional info: Trauma, critical injury suspected TECHNIQUE: Imaging protocol: Computed tomography of the head without contrast. Radiation optimization: All CT scans at this facility use at least one of these dose optimization techniques: automated exposure control; mA and/or kV adjustment per patient size (includes targeted exams where dose is matched to clinical indication); or iterative reconstruction. COMPARISON: CT CERVICAL SPINE WO CON 11/26/2023 6:48 PM FINDINGS: Brain: Periventricular and subcortical small vessel ischemic changes appear chronic. Age-appropriate atrophy associated. No acute hemorrhage, mass effect, midline shift, or extra-axial fluid collection. Cerebral ventricles: No ventriculomegaly. Paranasal sinuses: Visualized sinuses are unremarkable. No fluid levels. Mastoid air cells: Visualized mastoid air cells are well aerated. Bones/joints: Unremarkable. No acute fracture. Soft tissues: Unremarkable. IMPRESSION: No acute traumatic intracranial abnormality.
--- NOTE | 2023-11-26 18:01 | CT_ITS ---
PROCEDURE INFORMATION: Exam: CT Cervical Spine Without Contrast Exam date and time: 11/26/2023 6:48 PM Age: 83 years old Clinical indication: Injury or trauma; Fall; Blunt trauma; Additional info: Trauma, critical injury suspected TECHNIQUE: Imaging protocol: Computed tomography of the cervical spine without contrast. Radiation optimization: All CT scans at this facility use at least one of these dose optimization techniques: automated exposure control; mA and/or kV adjustment per patient size (includes targeted exams where dose is matched to clinical indication); or iterative reconstruction. COMPARISON: CT ANGIO NECK 06/26/2022 4:14 PM FINDINGS: Bones/joints: No acute fracture. Normal alignment. C2-C3: No significant disc bulge or herniation. No severe spinal canal stenosis. No significant neural foraminal narrowing. C3-C4: Mild disc space narrowing. No significant disc bulge or herniation. No severe spinal canal stenosis. No significant neural foraminal narrowing. C4-C5: Mild disc space narrowing. No significant disc bulge or herniation. No severe spinal canal stenosis. No significant neural foraminal narrowing. C5-C6: Block vertebra. C6-C7: No significant disc bulge or herniation. No severe spinal canal stenosis. No significant neural foraminal narrowing. C7-T1: No significant disc bulge or herniation. No severe spinal canal stenosis. No significant neural foraminal narrowing. Lungs: Lung apices are normal. Soft tissues: Unremarkable. IMPRESSION: 1. No acute traumatic findings. 2. No significant interval change since 06/26/2022.
--- NOTE | 2023-11-26 18:07 | PC.NURSE ---
DR FLORES AT BEDSIDE
--- NOTE | 2023-11-26 18:08 | PC.NURSE ---
RADIOLOGY NOTIFIED OF SCANS
[2023-11-26] MEDS: ONDANSETRON 4MG/2ML VIAL 4 MG IV (18:09)
[2023-11-26] MEDS: FENTANYL 250MCG/5ML VIAL 100 MCG IV (18:09)
[2023-11-26 18:11] LABS: Basophils # 0.1 K/mm3 (0-0.2); Basophils % 0.8 % (0.1-2.0); Eosinophils # 0.1 K/mm3 (0.0-0.4); Eosinophils % 1.9 % (0.1-12.0); Hematocrit 45.7 % (42.0-52.0); Hemoglobin 14.1 g/dL (14.1-18.0); Lymphocytes # 2.2 K/mm3 (0.7-4.5); Mean Corpuscular HGB Conc 30.8 g/dL (31.8-35.4); Mean Corpuscular Hemoglobin 30.9 pg (27.0-31.2); Mean Corpuscular Volume 100.3 fl (80-94); Mean Platelet Volume 7.8 fl (7.4-10.4); Monocytes # 0.4 K/mm3 (0.1-1.0); Monocytes % 5.4 % (1.7-9.3); Neutrophils % 58.8 % (37.0-80.0); Platelet Count 137 K/mm3 (142-424); Red Blood Count 4.55 M/mm3 (4.60-6.20); Red Cell Distribution Width 14.2 % (11.5-17.5); White Blood Count 6.7 K/mm3 (4.8-10.8)
--- NOTE | 2023-11-26 18:11 | [facility].EDGENADL ---
Discharge Plan Disposition Patient Disposition: Admitted Chief Complaint: Fall Prescriptions Prescriptions: No Action alprazolam 1 MG tablet 0.5 mg PO BID donepezil 10 MG tablet 10 mg PO HS pioglitazone 45 MG tablet 45 mg PO DAILY tamsulosin 0.4 MG capsule 0.4 mg PO HS rivaroxaban 20 mg tablet 20 mg PO DAILY citalopram 10 mg tablet 10 mg PO DAILY Patient Comments: TAKE 1 TABLET BY MOUTH ONCE DAILY midodrine 5 mg tablet 5 mg PO TID Patient Comments: TAKE 1 TABLET BY MOUTH THREE TIMES DAILY BEFORE MEAL(S) esomeprazole magnesium 40 mg capsule,delayed release(DR/EC) 40 mg PO DAILY Patient Comments: TAKE 1 CAPSULE BY MOUTH ONCE DAILY insulin degludec [Tresiba FlexTouch U-100] 100 unit/mL (3 mL) insulin pen 20 unit SQ DAILY cefdinir [cefdinir] 300 mg capsule 300 mg PO BID Qty: 14 0RF hydrocodone-acetaminophen 1 TAB tablet 1 tab PO QID gabapentin 800 MG tablet 800 mg PO BID metformin 1,000 MG tablet 1,000 mg PO BIDWMEAL finasteride 5 MG tablet 5 mg PO DAILY Discharge ED Provider: Rodrigo Dash General Adult HPI General Chief complaint: Fall Stated complaint: fall Time Seen by Provider: 11/26/23 17:55 Mode of Arrival: EMS Source of Information: Patient Limitations: No Limitations Description of Symptoms (Recalled from ER Triage Doc. by RN): PT FALL FROM CHAIR WHILE TAKING DOWN BIRTHDAY DECORATIONS. DENIES LOC, REPORTS LEFT HIP PAIN, NECK PAIN AND PAIN TO BACK OF HEAD. PT ABLE TO MOVES TOES, PULSES PALPABLE History of Present Illness HPI narrative: Patient is a 83-year-old male with past medical history of atrial fibrillation on Eliquis who presents emergency department for evaluation of traumatic injury sustained in a fall. Patient was standing on a chair taking down some tape at his home approximately an hour to an hour and a half prior to arrival when he fell backwards onto his left hip, posterior head. No loss of consciousness. He is complaining of neck pain however he is more worried about his left hip which he is unable to move his left lower extremity secondary to severe pain. Patient was transported here by EMS on spine board for continued evaluation. C-spine precautions initiated prior to arrival. No other acute complaints at this time. Related Data Home Medications Medication Instructions Recorded Confirmed hydrocodone 10 mg-acetaminophen 1 tab PO QID Pain 01/19/18 12/05/22 325 mg tablet alprazolam 1 mg tablet 0.5 mg PO BID Anxiety 06/03/18 12/05/22 finasteride 5 mg tablet 5 mg PO DAILY PROSTATE 05/12/21 12/05/22 gabapentin 800 mg tablet 800 mg PO BID NEUROPATHY 05/12/21 12/05/22 metformin 1,000 mg tablet 1,000 mg PO BIDWMEAL Diabetes 05/12/21 12/05/22 donepezil 10 mg tablet 10 mg PO HS MEMORY 03/26/22 12/05/22 pioglitazone 45 mg tablet 45 mg PO DAILY Diabetes 03/26/22 12/05/22 tamsulosin 0.4 mg capsule 0.4 mg PO HS PROSTATE 03/26/22 12/05/22 rivaroxaban 20 mg tablet 20 mg PO DAILY AFIB 04/27/22 12/05/22 citalopram 10 mg tablet 10 mg PO DAILY Anxiety 12/05/22 12/05/22 esomeprazole magnesium 40 mg 40 mg PO DAILY gerd 12/05/22 12/05/22 capsule,delayed release insulin degludec 100 unit/mL (3 20 unit SQ DAILY Diabetes 12/05/22 12/05/22 mL) subcutaneous pen (Tresiba FlexTouch U-100 insulin) midodrine 5 mg tablet 5 mg PO TID low blood pressure 12/05/22 12/05/22 Previous Rx's Medication Instructions Recorded cefdinir 300 mg capsule 300 mg PO BID #14 caps 12/05/22 Allergies Allergy/AdvReac Type Severity Reaction Status Date / Time No Known Allergies Allergy Verified 04/23/22 10:16 [facility] Disclaimer: The information contained in this section may have been updated after the patient was seen, as this information can be updated by other users. Medical History (Updated 12/05/22 @ 04:49 by Sukh Turner (RIMA)MD) Arthritis Diabetes Afib Hypotension Abnormal electrocardiography Dyspnea Social History Smoking Status: Former smoker alcohol intake: never current occupational status: disabled Travel in the last 8 weeks: Inside the [place] household members: spouse and children housing: house ROS Obtained: Yes Systems reviewed as appropriate & no additional complaints except as documented Physical Exam General General appearance: alert and in no apparent distress Head Head exam: atraumatic and normocephalic Eye Eye exam: Present PERRL and EOMI ENT ENT exam: Present mucous membranes moist Neck Neck exam: Present normal inspection Chest Chest inspection: Present normal inspection and symmetric chest wall rise Respiratory Respiratory exam: Present normal lung sounds bilaterally; Absent respiratory distress Cardiovascular Cardiovascular exam: Present regular rate and normal rhythm Abdominal Exam Abdominal exam: Present soft; Absent tenderness Extremities Exam Extremities exam: Present other (Left lower extremity externally rotated, palpable left dorsal pedal pulse, unable to range at the hip secondary to severe pain. There is hip tenderness.) Neurological Exam Neurological exam: Present alert Psychiatric Psychiatric exam: Present normal affect Skin Skin exam: Present warm and dry Medical Decision Making Antonio Inquiry Pt receiving controlled substance: No Vital Signs: 11/26/23 17:50 Temperature 99.0 F Temperature Source Oral Pulse Rate [Left Radial] 81 Respiratory Rate 18 Blood Pressure [Right Arm] 128/81 Blood Pressure Mean [Right Arm] 96 Blood Pressure Source [Right Arm] Automatic Cuff Blood Pressure Position [Right Arm] Sitting 02 Sat by Pulse Oximetry 95 Oxygen Delivery Method Room Air Lab Data Lab Results 11/26/23 17:55: WBC 6.7, RBC 4.55 L, Hgb 14.1, Hct 45.7, MCV 100.3 H, MCH 30.9, MCHC 30.8 L, RDW 14.2, Plt Count 137 L, MPV 7.8, Neut % (Auto) 58.8, Lymph % (Auto) 33.0, Gilchrist % (Auto) 5.4, Eos % (Auto) 1.9, Baso % (Auto) 0.8, Neut # (Auto) 4.0, Lymph # (Auto) 2.2, Gilchrist # (Auto) 0.4, Eos # (Auto) 0.1, Baso # (Auto) 0.1, Sodium 135 L, Potassium 4.9, Chloride 102, Carbon Dioxide 28, Anion Gap 9.9, BUN 18, Creatinine 1.00, Estimated Creat Clear 92, Estimated GFR 71, Est GFR ( Amer) 86, Glucose 156 H, Calcium 8.9, Total Bilirubin 1.2, AST 62 H, ALT 27, Alkaline Phosphatase 83, Total Protein 6.4, Albumin 3.9, Globulin 2.5, Albumin/Globulin Ratio 1.6 11/26/23 17:55 11/26/23 17:55 Orders (Tests/Meds): ED MEDICATIONS Discontinued Medications Generic Name Dose Route Start Last Admin Trade Name Allison PRN Reason Stop Dose Admin Acetaminophen 1,000 mg 11/26/23 18:14 11/26/23 19:14 Acetaminophen 1,000mg/100ml Vial IV 11/26/23 18:15 1,000 mg ONCE ONE Administration Fentanyl Citrate 100 mcg 11/26/23 18:01 11/26/23 18:09 Fentanyl 250mcg/5ml Vial IV 11/26/23 18:02 100 mcg ONCE ONE Administration Iopamidol 100 ml 11/26/23 19:00 11/26/23 19:02 Iopamidol-370 (76%);100ml Bottle IV 11/26/23 19:01 100 ml ONCE ONE Administration Ondansetron HCl 4 mg 11/26/23 18:01 11/26/23 18:09 Ondansetron 4mg/2ml Vial IV 11/26/23 18:02 4 mg ONCE ONE Administration Sodium Chloride 50 ml 11/26/23 19:00 11/26/23 19:02 0.9 % Sodium Chloride 50 Ml Vial IV 11/26/23 19:01 50 ml ONCE ONE Administration Sodium Chloride 10 ml 11/26/23 19:00 11/26/23 19:02 Sodium Chloride 0.9% 10ml Syr (Rad Only) IV 11/26/23 19:01 10 ml ONCE ONE Administration ORDERS Category Date Time Status CT angio abdomen pelvis Stat Cat Scan 11/26/23 18:[address] angio chest - dissection Stat Cat Scan 11/26/23 18:[address] bony pelvis Stat Cat Scan 11/26/23 18:[address] cervical spine wo con Stat Cat Scan 11/26/23 18:[address] head/brain wo con Stat Cat Scan 11/26/23 18:[address] lumbar spine wo con Stat Cat Scan 11/26/23 18:[address] thoracic spine wo con Stat Cat Scan 11/26/23 18:01 Completed Consult to Orthopedic Surgery [CONS] Stat Cons 11/26/23 20:00 Ordered Femur XR left 2 views [XR femur LT 2V] Stat Exams 11/26/23 18:01 Completed Hip XR left minimum 2 views [XR hip LT 2-3V w/pelvis] Exams 11/26/23 18:01 Completed Stat CBC w/Auto Diff [Complete Blood Count Auto Diff] Stat Lab 11/26/23 17:55 Completed CMP [Comprehensive Metabolic Panel] Stat Lab 11/26/23 17:55 Completed Medical Decision Narrative: In summary patient is 83-year-old male with past medical history described above who presents emergency department for evaluation of traumatic injury sustained in a fall. Patient is hemodynamically stable nontoxic-appearing upon arrival, afebrile. Differential diagnosis includes fracture, internal bleeding, among others. Workup will be conducted with full CT trauma scans, plain films of the pelvis, left hip and femur. Initial inventions include fentanyl, IV tylenol, Zofran. Workup reviewed by me, hematologic labs are nonactionable no TRUPTI or critical electrolyte abnormality, no acute anemia. Trauma survey remarkable for intertrochanteric femur fracture on the left, incidental upper lobe pulmonary nodules for which no routine follow-up is indicated given the patient does not smoke. The case was discussed with orthopedic on-call Dr. Armas who agrees patient is appropriate for this facility. Case was subsequently discussed with hospital medicine who admit the patient their service for continued evaluation at this time. Critical Care Critical Care Time Critical Care Time: No
[2023-11-26 18:12] LABS: Chloride 102 mmol/L (98-107); Sodium 135 mmol/L (136-145)
[2023-11-26 18:13] LABS: Potassium 4.9 mmoL/L (3.5-5.1)
[2023-11-26 18:15] LABS: Alanine Aminotransferase 27 U/L (12-78); Albumin Level 3.9 g/dl (3.5-5.0); Albumin/Globulin Ratio 1.6 (1.1-1.8); Alkaline Phosphatase 83 U/L (38-126); Anion Gap 9.9 mEq/L (5-15); Aspartate Amino Transferase 62 U/L (17-59); Bilirubin,Total 1.2 mg/dl (0.2-1.3); Blood Urea Nitrogen 18 mg/dl (9-20); Calcium 8.9 mg/dl (8.4-10.2); Carbon Dioxide 28 mmol/L (22.0-30.0); Creatinine Clearance Estimated 92 mL/min (50-200); Estimated Glomerular Filt Rate 71 ml/min (>60); GFR (African American) 86 ML/MIN (>60); Globulin 2.5 g/dL (1.3-3.2); Glucose 156 mg/dl (74-100); Total Protein,Serum 6.4 g/dl (6.3-8.2)
--- NOTE | 2023-11-26 18:20 | PC.NURSE ---
XR AT BEDSIDE
--- NOTE | 2023-11-26 18:31 | PC.NURSE ---
pt clothes cut for inspection of injuries. Items located in his pants (keys, change, comb) placed with who is at bs
--- NOTE | 2023-11-26 18:50 | PC.NURSE ---
PT TO CT
[2023-11-26] MEDS: 0.9 % SODIUM CHLORIDE 50 ML VIAL IV (19:02)
[2023-11-26] MEDS: IOPAMIDOL-370 (76%);100ML BOTTLE 100 ML IV (19:02)
[2023-11-26] MEDS: SODIUM CHLORIDE 0.9% 10ML SYR (RAD ONLY) 10 ML IV (19:02)
--- NOTE | 2023-11-26 19:12 | PC.NURSE ---
Soham paged, on phone with ED doct at this time
[2023-11-26] MEDS: ACETAMINOPHEN 1,000MG/100ML VIAL 1000 MG IV (19:14)
--- NOTE | 2023-11-26 19:15 | PC.NURSE ---
I rounded on the pt. no needs voiced. call melendez in reach.
--- NOTE | 2023-11-26 20:01 | PC.NURSE ---
I notified the warehouse guard that we need a bed for admission to the hospitalist for a femur fracture.
--- NOTE | 2023-11-26 20:05 | PC.NURSE ---
Report called to Aleksandra JIANG
[2023-11-26 20:09] VITALS: BP 131/89; PULSE 80; RESP 18; TEMP 37.2; O2SAT 95
[2023-11-26 20:19] VITALS: BP 139/66; PULSE 91; RESP 18; TEMP 36.6; O2SAT 91; BMI 36.3
--- NOTE | 2023-11-26 20:19 | PC.NURSE ---
Pt arrived to floor via stretcher @20:11
--- NOTE | 2023-11-26 21:27 | P.HP_ITS ---
History of Present Illness *Admission Date: 11/26/23 *Reason for visit:: Mechanical fall *History of present illness: This is a very pleasant 83-year-old male with a past medical history of A-fib on Xarelto, T2DM, AAA, anxiety chronic pain who presents to the emergency department today after mechanical fall. He reports standing on a chair trying to remove constitution party decorations when he turned around and fell off the chair. He denies any dizziness or palpitations prior to this fall. States that when he landed he had pain in the back of his head and his left hip. He denies LOC. States that he is on Xarelto and his last dose was this morning. Emergency department workup mostly unremarkable except for left intertrochanteric fracture. Further traumagram negative. No evidence of bleeding. Head CT, C-spine CT negative. Dr. Armas was consulted for fixation of the left hip. He will consult. He is admitted to hospital service for further evaluation management. [facility] Disclaimer: The information contained in this section may have been updated after the patient was seen, as this information can be updated by other users. Medical History (Updated 11/26/23 @ 21:31 by AQUILES Manning) Arthritis Diabetes Afib Hypotension Abnormal electrocardiography Dyspnea Family History (Updated 11/26/23 @ 21:58 by Marta Moon RN) Family history of cancer Social History (Updated 11/26/23 @ 21:58 by Marta Moon RN) Smoking Status: Former smoker alcohol intake: never current occupational status: disabled Travel in the last 8 weeks: Inside the [place] household members: spouse and children housing: house Review of Systems Constitutional Constitutional: Reports as per HPI Eyes Eyes: Reports as per HPI ENT Ears, Nose, Mouth, and Throat: Reports as per HPI *Cardiovascular Cardiovascular: Reports as per HPI *Respiratory Respiratory: Reports as per HPI *Gastrointestinal Gastrointestinal: Reports as per HPI *Genitourinary Genitourinary: Reports as per HPI *Musculoskeletal Musculoskeletal: Reports as per HPI Integumentary/Breasts Skin/Breast: Reports as per HPI *Neurologic Neurologic: Reports as per HPI Psychiatric Psychiatric: Reports as per HPI Endocrine Endocrine: Reports as per HPI Meds Home Medications and Allergies Home Medications Medication Instructions Recorded Confirmed Type hydrocodone 10 mg-acetaminophen 1 tab PO QID Pain 01/19/18 12/05/22 History 325 mg tablet alprazolam 1 mg tablet 0.5 mg PO BID Anxiety 06/03/18 12/05/22 History finasteride 5 mg tablet 5 mg PO DAILY PROSTATE 05/12/21 12/05/22 History gabapentin 800 mg tablet 800 mg PO BID NEUROPATHY 05/12/21 12/05/22 History metformin 1,000 mg tablet 1,000 mg PO BIDWMEAL Diabetes 05/12/21 12/05/22 History donepezil 10 mg tablet 10 mg PO HS MEMORY 03/26/22 12/05/22 History pioglitazone 45 mg tablet 45 mg PO DAILY Diabetes 03/26/22 12/05/22 History tamsulosin 0.4 mg capsule 0.4 mg PO HS PROSTATE 03/26/22 12/05/22 History rivaroxaban 20 mg tablet 20 mg PO DAILY AFIB 04/27/22 12/05/22 History cefdinir 300 mg capsule 300 mg PO BID #14 caps 12/05/22 Rx citalopram 10 mg tablet 10 mg PO DAILY Anxiety 12/05/22 12/05/22 History esomeprazole magnesium 40 mg 40 mg PO DAILY gerd 12/05/22 12/05/22 History capsule,delayed release insulin degludec 100 unit/mL (3 20 unit SQ DAILY Diabetes 12/05/22 12/05/22 History mL) subcutaneous pen (Tresiba FlexTouch U-100 insulin) midodrine 5 mg tablet 5 mg PO TID low blood pressure 12/05/22 12/05/22 History New Prescriptions to Start Prescriptions: Allergies Allergy/AdvReac Type Severity Reaction Status Date / Time No Known Allergies Allergy Verified 04/23/22 10:16 Exam Data for Last 24 hours Vital signs and Labs for Last 24 Hours: Temp Pulse Resp BP Pulse Ox O2 Del Method 97.8 F 91 H 18 139/66 91 L Room Air 11/26/23 20:19 11/26/23 20:19 11/26/23 20:19 11/26/23 20:19 11/26/23 20:19 11/26/23 20:19 Laboratory Results - last 24 hr 11/26/23 17:55: WBC 6.7, RBC 4.55 L, Hgb 14.1, Hct 45.7, MCV 100.3 H, MCH 30.9, MCHC 30.8 L, RDW 14.2, Plt Count 137 L, MPV 7.8, Neut % (Auto) 58.8, Lymph % (Auto) 33.0, [place] % (Auto) 5.4, Eos % (Auto) 1.9, Baso % (Auto) 0.8, Neut # (Auto) 4.0, Lymph # (Auto) 2.2, [place] # (Auto) 0.4, Eos # (Auto) 0.1, Baso # (Auto) 0.1, Sodium 135 L, Potassium 4.9, Chloride 102, Carbon Dioxide 28, Anion Gap 9.9, BUN 18, Creatinine 1.00, Estimated Creat Clear 92, Estimated GFR 71, Est GFR ( Amer) 86, Glucose 156 H, Calcium 8.9, Total Bilirubin 1.2, AST 62 H, ALT 27, Alkaline Phosphatase 83, Total Protein 6.4, Albumin 3.9, Globulin 2.5, Albumin/Globulin Ratio 1.6 I & O for Last 24 hours: Intake & Output 11/23/23 11/24/23 11/25/23 11/26/23 23:59 23:59 23:59 23:59 Weight 117.934 kg Constitutional Constitutional: no acute distress *Routine HEENT Exam Head: Present normocephalic Eye: Present EOMI and PERRL ENT: Present mucous membranes moist *Routine Neck Exam Neck: Present supple; Absent lymphadenopathy *Routine Respiratory Exam Respiratory: Present CTA bilaterally *Routine Cardiovascular Exam Cardiovascular: Present RRR *Routine Abdominal Exam Abdominal: Present soft and normoactive bowel sounds; Absent tenderness *Routine Rectal Exam Rectal:: deferred *Routine Genitalia Exam Genitalia:: deferred *Routine Extremities Exam Extremities: Present pulses intact and normal capillary refill Comments: Left lower extremity ROM limited secondary to pain. PMS intact. *Routine Skin Exam Skin: Present warm; Absent rash *Routine Neurological Exam Neurological: Present alert and oriented X3 Assessment and Plan *Assessment and plan (1) Fracture, intertrochanteric, left femur: Status: Acute Qualifiers: Encounter type: initial encounter Fracture alignment: nondisplaced Fracture type: closed Qualified Code(s): S72.145A - Nondisplaced intertrochanteric fracture of left femur, initial encounter for closed fracture Category: Medical Code(s): S72.142A - Displaced intertrochanteric fracture of left femur, initial encounter for closed fracture (2) Chronic anticoagulation: Status: Acute Category: Medical Code(s): 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 (3) A-fib: Status: Acute Qualifiers: Atrial fibrillation type: persistent (not longstanding) Qualified Code(s): I48.19 - Other persistent atrial fibrillation Category: Medical Code(s): I48.91 - Unspecified atrial fibrillation (4) T2DM (type 2 diabetes mellitus): Status: Acute Qualifiers: Diabetes mellitus complication status: without complication 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 #Left intertrochanteric fracture Dr. Armas with orthopedics consulted and will see patient in a.m. N.p.o. with maintenance IV fluids Anticoagulation on hold. Last dose the morning of 11/25 Multimodal pain medication #Chronic anticoagulation #A-fib Anticoagulation on hold #T2DM Continue sliding scale insulin N.p.o. otherwise diabetic diet #Anxiety Continue home anxiety medications DVT PPx: Home Xarelto on hold, will need to resuming after surgery Full code Rounded on patient after nurse practitioner. Personally examined and interviewed patient. Agree with exam findings and care plan as documented.
[2023-11-26] MEDS: 0.9 % SODIUM CHLORIDE 1000ML 1,000 ML 50 ML IV (21:58)
[2023-11-26] MEDS: DOCUSATE SODIUM 100 MG CAPSULE PO (21:58)
[2023-11-26] MEDS: humaLOG 100 UNITS/ML 3ML VIAL (SSI) SQ (21:59)
--- NOTE | 2023-11-26 22:29 | EXP.ORTH.CON ---
History of Present Illness *Admission Date: 11/26/23 *History of present illness: This is a very pleasant 83-year-old male with a past medical history of A-fib on Xarelto, T2DM, AAA, anxiety chronic pain who presents to the emergency department today after mechanical fall. He reports standing on a chair trying to remove [place] party decorations when he turned around and fell off the chair. He denies any dizziness or palpitations prior to this fall. States that when he landed he had pain in the back of his head and his left hip. He denies LOC. States that he is on Xarelto and his last dose was this morning. Emergency department workup mostly unremarkable except for left intertrochanteric fracture. Further traumagram negative. No evidence of bleeding. Head CT, C-spine CT negative. Orthopedics consulted for treatment options in regards to left hip fracture. [facility] Disclaimer: The information contained in this section may have been updated after the patient was seen, as this information can be updated by other users. Medical History (Updated 11/26/23 @ 21:31 by AQUILES Manning) Arthritis Diabetes Afib Hypotension Abnormal electrocardiography Dyspnea Family History (Updated 11/26/23 @ 21:58 by Marta Moon RN) Other Family history of cancer Social History (Updated 11/26/23 @ 21:58 by Marta Moon RN) Smoking Status: Former smoker alcohol intake: never current occupational status: disabled Travel in the last 8 weeks: [place] the [place] household members: spouse and children housing: house Review of Systems *Neurologic Neurologic: Reports as per [facility] Meds Home Medications and Allergies Home Medications Medication Instructions Recorded Confirmed Type hydrocodone 10 mg-acetaminophen 1 tab PO QID Pain 01/19/18 12/05/22 History 325 mg tablet alprazolam 1 mg tablet 0.5 mg PO BID Anxiety 06/03/18 12/05/22 History finasteride 5 mg tablet 5 mg PO DAILY PROSTATE 05/12/21 12/05/22 History gabapentin 800 mg tablet 800 mg PO BID NEUROPATHY 05/12/21 12/05/22 History metformin 1,000 mg tablet 1,000 mg PO BIDWMEAL Diabetes 05/12/21 12/05/22 History donepezil 10 mg tablet 10 mg PO HS MEMORY 03/26/22 12/05/22 History pioglitazone 45 mg tablet 45 mg PO DAILY Diabetes 03/26/22 12/05/22 History tamsulosin 0.4 mg capsule 0.4 mg PO HS PROSTATE 03/26/22 12/05/22 History rivaroxaban 20 mg tablet 20 mg PO DAILY AFIB 04/27/22 12/05/22 History cefdinir 300 mg capsule 300 mg PO BID #14 caps 12/05/22 Rx citalopram 10 mg tablet 10 mg PO DAILY Anxiety 12/05/22 12/05/22 History esomeprazole magnesium 40 mg 40 mg PO DAILY gerd 12/05/22 12/05/22 History capsule,delayed release insulin degludec 100 unit/mL (3 20 unit SQ DAILY Diabetes 12/05/22 12/05/22 History mL) subcutaneous pen (Tresiba FlexTouch U-100 insulin) midodrine 5 mg tablet 5 mg PO TID low blood pressure 12/05/22 12/05/22 History New Prescriptions to Start Prescriptions: Allergies Allergy/AdvReac Type Severity Reaction Status Date / Time No Known Allergies Allergy Verified 04/23/22 10:16 Ortho Exam (Inpt) Vital signs and Labs for Last 24 Hours: Temp Pulse Resp BP Pulse Ox O2 Del Method 97.8 F 91 H 18 139/66 91 L Room Air 11/26/23 20:19 11/26/23 20:19 11/26/23 20:19 11/26/23 20:19 11/26/23 20:19 11/26/23 20:19 Laboratory Results - last 24 hr 11/26/23 17:55: WBC 6.7, RBC 4.55 L, Hgb 14.1, Hct 45.7, MCV 100.3 H, MCH 30.9, MCHC 30.8 L, RDW 14.2, Plt Count 137 L, MPV 7.8, Neut % (Auto) 58.8, Lymph % (Auto) 33.0, [place] % (Auto) 5.4, Eos % (Auto) 1.9, Baso % (Auto) 0.8, Neut # (Auto) 4.0, Lymph # (Auto) 2.2, [place] # (Auto) 0.4, Eos # (Auto) 0.1, Baso # (Auto) 0.1, Sodium 135 L, Potassium 4.9, Chloride 102, Carbon Dioxide 28, Anion Gap 9.9, BUN 18, Creatinine 1.00, Estimated Creat Clear 92, Estimated GFR 71, Est GFR ( Amer) 86, Glucose 156 H, Calcium 8.9, Total Bilirubin 1.2, AST 62 H, ALT 27, Alkaline Phosphatase 83, Total Protein 6.4, Albumin 3.9, Globulin 2.5, Albumin/Globulin Ratio 1.6 I & O for Labs for Last 24 Hours: Intake & Output 11/23/23 11/24/23 11/25/23 11/26/23 23:59 23:59 23:59 23:59 Weight 259 lb 15.999 oz Constitutional: Present no acute distress Head: Present normocephalic and atraumatic Additional findings:: Left hip with no malrotation or shortening. Pain with any attempted movement of the left hip. X-rays and CT scan of the left hip show very minimally displaced intertrochanteric hip fracture Results Labs 11/26/23 17:55 11/26/23 17:55 Labs: Abnormal lab results 11/26/23 Range/Units 17:55 RBC 4.55 L (4.60-6.20) M/mm3 MCV 100.3 H (80-94) fl MCHC 30.8 L (31.8-35.4) g/dL Plt Count 137 L (142-424) K/mm3 Sodium 135 L (136-145) mmol/L Glucose 156 H (74-100) mg/dl AST 62 H (17-59) U/L H & H 11/26/23 Range/Units 17:55 Hgb 14.1 (14.1-18.0) g/dL Hct 45.7 (42.0-52.0) % All other labs normal. Assessment and Plan *Assessment and plan (1) Fracture, intertrochanteric, left femur: Status: Acute Qualifiers: Encounter type: initial encounter Fracture type: closed Fracture alignment: nondisplaced Qualified Code(s): S72.145A - Nondisplaced intertrochanteric fracture of left femur, initial encounter for closed fracture Category: Medical Code(s): S72.142A - Displaced intertrochanteric fracture of left femur, initial encounter for closed fracture Plan Patient is on Xarelto for A-fib. His last dose was this morning. Will hold his dose of blood thinners now wait an additional day and plan on operative fixation on Wednesday. Plan is cephalomedullary nailing of the left proximal femur fracture. Slight increase chance of bleeding secondary to blood thinners however better outcomes obtained if surgery within the first 48 hours. Will plan on operative fixation on Wednesday PROPOSED SURGERY: Cephalomedullary nailing left proximal femur the risks and benefits of the proposed surgery were discussed in depth with the patient. Potential complications including inherent risk of anesthesia, infection, neurovascular damage, DVT, and rare but real potential loss of limb or life were all reviewed. Patient voices understanding and seems to understand to my satisfaction and wishes to proceed with surgery. I gave them adequate time to ask any questions they have pertaining to this surgery and answered all of them to the best of my ability. I gave them no guarantees in regards to outcomes of this surgery.
[2023-11-26] MEDS: MORPHINE 2MG/ML SYRINGE 2 MG IV (22:41)
[2023-11-27] MEDS: APAP/HYDROCODONE 325MG/7.5MG TAB 1 TAB PO (02:16)
[2023-11-27] MEDS: MORPHINE 2MG/ML SYRINGE 2 MG IV (03:34)
[2023-11-27 04:00] VITALS: BP 129/72; PULSE 66; RESP 16; TEMP 36.8; O2SAT 96; BMI 32.1
--- NOTE | 2023-11-27 05:48 | PC.NURSE ---
Pt is alert and oriented. Ortho spoke with patient and plans for surgical intervention Monday 11/27. Pt has remained on bedrest. Pt is uncomfortable and requested pain medication, treated per oct. No other complaints voiced. Call light in reach.
[2023-11-27] MEDS: humaLOG 100 UNITS/ML 3ML VIAL (SSI) SQ ×3 (06:19→20:21)
[2023-11-27] MEDS: OXYCODONE 5MG IMMEDIATE RELEASE TABLET 5 MG PO ×3 (06:20→18:21)
[2023-11-27 07:20] LABS: Basophils % 0.7 % (0.1-2.0); Eosinophils # 0.1 K/mm3 (0.0-0.4); Eosinophils % 1.3 % (0.1-12.0); Hematocrit 41.7 % (42.0-52.0); Hemoglobin 12.9 g/dL (14.1-18.0); Lymphocytes # 2.1 K/mm3 (0.7-4.5); Lymphocytes % 31.8 % (10-50); Mean Corpuscular HGB Conc 31.1 g/dL (31.8-35.4); Mean Corpuscular Hemoglobin 31.1 pg (27.0-31.2); Mean Corpuscular Volume 100.1 fl (80-94); Mean Platelet Volume 7.6 fl (7.4-10.4); Monocytes # 0.4 K/mm3 (0.1-1.0); Monocytes % 6.5 % (1.7-9.3); Neutrophils % 59.7 % (37.0-80.0); Platelet Count 138 K/mm3 (142-424); Red Blood Count 4.16 M/mm3 (4.60-6.20); Red Cell Distribution Width 14.2 % (11.5-17.5); White Blood Count 6.7 K/mm3 (4.8-10.8)
[2023-11-27 07:30] LABS: Chloride 99 mmol/L (98-107); Potassium 4.5 mmoL/L (3.5-5.1); Sodium 135 mmol/L (136-145)
[2023-11-27 07:33] LABS: Anion Gap 6.5 mEq/L (5-15); Blood Urea Nitrogen 19 mg/dl (9-20); Carbon Dioxide 34 mmol/L (22.0-30.0); Creatinine Clearance Estimated 81 mL/min (50-200); Estimated Glomerular Filt Rate 71 ml/min (>60); GFR (African American) 86 ML/MIN (>60)
[2023-11-27 07:34] LABS: Calcium 8.9 mg/dl (8.4-10.2); Glucose 183 mg/dl (74-100)
[2023-11-27] MEDS: MORPHINE 2MG/ML SYRINGE 4 MG IV (07:44)
[2023-11-27 08:00] VITALS: BP 113/67; PULSE 100; RESP 16; TEMP 36.8; O2SAT 95
[2023-11-27] MEDS: DOCUSATE SODIUM 100 MG CAPSULE PO (09:44)
[2023-11-27 11:02] LABS: POC Glucose,Bedside 139 (70-110)
[2023-11-27] MEDS: MORPHINE 4MG/ML SYRINGE 4 MG IV ×3 (12:00→20:51)
--- NOTE | 2023-11-27 12:28 | EXP.ACUTE.PN ---
Subjective *Date: 11/27/23 *Time: 12:28 Interval history: Patient did well overnight. Pain stable. No active bleeding. Neurovascularly intact in feet. On room air. States his back was hurting from being in bed. No nausea or vomiting. Tolerating p.o. fluids. Medical Exam Vital signs and Labs for Last 24 Hours: Vital Signs Temp Pulse Pulse Resp BP BP Pulse Ox 11/27/23 12:19 11/27/23 10:49 11/27/23 08:56 11/27/23 08:00 95 11/27/23 08:00 98.2 F 100 H 16 113/67 95 11/27/23 06:35 11/27/23 05:00 11/27/23 04:00 98.3 F 66 16 129/72 96 11/27/23 03:00 11/27/23 00:36 11/26/23 23:00 11/26/23 21:00 11/26/23 20:19 97.8 F 91 H 18 139/66 91 L 11/26/23 20:09 99 F 80 18 131/89 11/26/23 17:50 99.0 F 81 18 128/81 95 O2 Del Method 11/27/23 12:19 Room Air 11/27/23 10:49 Room Air 11/27/23 08:56 Room Air 11/27/23 08:00 Room Air 11/27/23 08:00 Room Air 11/27/23 06:35 Room Air 11/27/23 05:00 Room Air 11/27/23 04:00 11/27/23 03:00 Room Air 11/27/23 00:36 Room Air 11/26/23 23:00 Room Air 11/26/23 21:00 Room Air 11/26/23 20:19 Room Air 11/26/23 20:09 11/26/23 17:50 Room Air Intake and Output 11/26/23 11/27/23 11/27/23 23:59 07:59 15:59 Intake Total 540 / 540 Output Total 100 / 100 Balance 440 / 440 Intake: Intake, Oral Amount 540 / 540 Output: Output, Urine Amount 100 / 100 Other: Weight 117.934 kg 104.099 kg Patient Weight 11/27/23 23:59 Weight 104.099 kg Laboratory Results - last 24 hr 11/26/23 17:55: WBC 6.7, RBC 4.55 L, Hgb 14.1, Hct 45.7, MCV 100.3 H, MCH 30.9, MCHC 30.8 L, RDW 14.2, Plt Count 137 L, MPV 7.8, Neut % (Auto) 58.8, Lymph % (Auto) 33.0, [place] % (Auto) 5.4, Eos % (Auto) 1.9, Baso % (Auto) 0.8, Neut # (Auto) 4.0, Lymph # (Auto) 2.2, [place] # (Auto) 0.4, Eos # (Auto) 0.1, Baso # (Auto) 0.1, Sodium 135 L, Potassium 4.9, Chloride 102, Carbon Dioxide 28, Anion Gap 9.9, BUN 18, Creatinine 1.00, Estimated Creat Clear 92, Estimated GFR 71, Est GFR ( Amer) 86, Glucose 156 H, Calcium 8.9, Total Bilirubin 1.2, AST 62 H, ALT 27, Alkaline Phosphatase 83, Total Protein 6.4, Albumin 3.9, Globulin 2.5, Albumin/Globulin Ratio 1.6 11/27/23 06:28: WBC 6.7, RBC 4.16 L, Hgb 12.9 L, Hct 41.7 L, MCV 100.1 H, MCH 31.1, MCHC 31.1 L, RDW 14.2, Plt Count 138 L, MPV 7.6, Neut % (Auto) 59.7, Lymph % (Auto) 31.8, [place] % (Auto) 6.5, Eos % (Auto) 1.3, Baso % (Auto) 0.7, Neut # (Auto) 4.0, Lymph # (Auto) 2.1, [place] # (Auto) 0.4, Eos # (Auto) 0.1, Baso # (Auto) 0.0, Sodium 135 L, Potassium 4.5, Chloride 99, Carbon Dioxide 34 H, Anion Gap 6.5, BUN 19, Creatinine 1.00, Estimated Creat Clear 81, Estimated GFR 71, Est GFR ( Amer) 86, Glucose 183 H, Calcium 8.9 11/27/23 10:49: POC Glucose 139 H I & O for Labs for Last 24 Hours: Intake & Output 11/24/23 11/25/23 11/26/23 11/27/23 23:59 23:59 23:59 23:59 Intake Total 540 / 540 Output Total 100 / 100 Balance 440 / 440 Weight 117.934 kg 104.099 kg Constitutional: Present no acute distress and obese Head: Present atraumatic and normocephalic Respiratory: Present normal respiratory effort; Absent rhonchi, wheezes or crackles Cardiac: Present Reg Rate and Rhythm GI: Present soft and normal bowel sounds; Absent distention or tenderness Extremities: Present full ROM and tenderness (Over left thigh); Absent normal inspection Skin: Present intact; Absent erythema Neuro: Present Grossly Intact, alert, awake, oriented x 3 and moves all extremities Assessment and Plan *Assessment and plan (1) Fracture, intertrochanteric, left femur: Status: Acute Qualifiers: Encounter type: initial encounter Fracture type: closed Fracture alignment: nondisplaced Qualified Code(s): S72.145A - Nondisplaced intertrochanteric fracture of left femur, initial encounter for closed fracture Category: Medical Code(s): S72.142A - Displaced intertrochanteric fracture of left femur, initial encounter for closed fracture (2) Chronic anticoagulation: Status: Acute Category: Medical Code(s): 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 (3) A-fib: Status: Acute Qualifiers: Atrial fibrillation type: persistent (not longstanding) Qualified Code(s): I48.19 - Other persistent atrial fibrillation Category: Medical Code(s): I48.91 - Unspecified atrial fibrillation (4) T2DM (type 2 diabetes mellitus): Status: Acute Qualifiers: Diabetes mellitus snf insulin use: with long term acute care registered nurse use Diabetes mellitus complication status: without complication Qualified Code(s): E11.9 - Type 2 diabetes mellitus without complications; 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 Orthopedics consulted. Evaluated patient today. Plan to proceed with surgery tomorrow for cephalomedullary nailing. Continues to require inpatient management. Problems addressed as follows: #Left intertrochanteric fracture Dr. Armas with orthopedics consulted and will see patient in a.m. will wait until tomorrow to give patient 48 hours off of his Xarelto to decrease risk for bleeding. N.p.o. after midnight Anticoagulation on hold. Last dose the morning of 11/25 Continue Tylenol 650 mg every 4 hours as needed for pain, morphine 4 mg IV every 4 hours as needed for pain. Monitoring for toxicity. Hemoglobin down slightly at 12.9. White cell count normal at 6.7. Platelets 138. Electrolytes normal, glucose elevated in the 180s. Repeat CBC, CMP, magnesium ordered for the morning. #Chronic anticoagulation #A-fib Anticoagulation on hold, on no rate controlling medications. Will monitor for needs for beta-fitz. #T2DM Continue sliding scale insulin, N.p.o. otherwise diabetic diet; A1c pending #Anxiety Continue home anxiety medications DVT PPx: Home Xarelto on hold, will need to resuming after surgery Full code N.p.o. at midnight
[2023-11-27 13:07] LABS: Hemoglobin A1C 7.3 % (4.0-6.0)
--- NOTE | 2023-11-27 14:02 | PC.NURSE ---
Patient is alert and oriented x4, VSS, on RA. Patient has been complaining of severe pain in his lower back, left hip, and left knee; treated per MAR. The is at bedside. Ice packs applied to left knee as adjunct pain relief. Call light in reach.
[2023-11-27 16:00] VITALS: BP 131/64; PULSE 98; RESP 18; TEMP 37.6; O2SAT 95
[2023-11-27 16:27] LABS: POC Glucose,Bedside 187 (70-110)
[2023-11-27 20:00] VITALS: BP 118/64; PULSE 90; RESP 16; TEMP 37; O2SAT 94
[2023-11-27] MEDS: TAMSULOSIN 0.4MG CAPSULE 0.400000000000000022 MG PO (20:21)
[2023-11-28] VITALS (22 sets, daily range): BP systolic 94–149; BP diastolic 50–84; PULSE 65–118; RESP 14–20; TEMP 36.6–40; O2SAT 90–108; BMI 32.1
[2023-11-28] MEDS: OXYCODONE 5MG IMMEDIATE RELEASE TABLET 5 MG PO (00:35)
[2023-11-28 01:11] LABS: POC Glucose,Bedside 109 (70-110)
--- NOTE | 2023-11-28 01:48 | PC.NURSE ---
15 F mcwilliams placed @ 0100 for surgical procedure, drain bag placed on side of bed, clear yellow urine draining.
[2023-11-28] MEDS: ALPRAZolam 0.5MG TABLET 0.5 MG PO (02:59)
--- NOTE | 2023-11-28 05:55 | PC.NURSE ---
Pt is alert and oriented. Complained of pain, treated per mar. Pt seemed to be very anxious the more the night went on, pt called out several times just asking about the time and when surgery will be. Pt seemed to be slightly disoriented, but quickly reorients. Treated per oct for anxiety. Looking at home meds, pt was not reordered his medication for memory, passed on to charge and Ke OLIVA. Pt has been situated in the bed due to discomfort in the back. Heat applied to back. Pt tolerated sitting up with head and bed and request to stay sitting up. Pt has had no other complaints. Bed alarm turned on for safety. [place] draining clear yellow urine. Call light in reach.
[2023-11-28 07:05] LABS: Microscopic, Urine URINE MICROSCOPIC (MICROSCOPIC)
[2023-11-28 07:07] LABS: Appearance,Urine CLEAR (Clear); Bilirubin,Urine Negative (Negative); Blood, Urine 1+ (Negative); Color,Urine YELLOW (Yellow); Glucose,Urine (UA) Negative (Negative); Ketones,Urine TRACE (Negative); Leukocyte Esterase,Urine Negative (Negative); Nitrate,Urine Negative (Negative); Protein,Urine Negative (Negative); Specific Gravity, Urine 1.015 (1.005-1.030)
[2023-11-28 07:29] LABS: Bacteria,Urine Trace /lpf
--- NOTE | 2023-11-28 07:30 | P.PN_ITS ---
Subjective *Date: 11/28/23 *Time: 14:25 Interval history: Patient taken for surgery today. Feeling better after surgery, legs stable. Tolerating p.o. intake without any nausea or vomiting. Wearing some oxygen after surgery. Holding anticoagulation until the morning. Denies any chest p ain or shortness of breath. Medical Exam Vital signs and Labs for Last 24 Hours: Vital Signs Temp Pulse Resp BP Pulse Ox O2 Del Method 11/28/23 06:40 Room Air 11/28/23 05:00 Room Air 11/28/23 04:00 98.9 F 100 H 16 96/53 L 90 L Room Air 11/28/23 02:43 Room Air 11/28/23 01:00 Room Air 11/27/23 22:52 Room Air 11/27/23 21:00 Room Air 11/27/23 20:00 Room Air 11/27/23 20:00 98.6 F 90 16 118/64 94 L 11/27/23 18:05 Room Air 11/27/23 17:00 Room Air 11/27/23 16:00 99.6 F 98 H 18 131/64 95 Room Air 11/27/23 15:00 Room Air 11/27/23 12:19 Room Air 11/27/23 10:49 Room Air 11/27/23 08:56 Room Air 11/27/23 08:00 95 Room Air 11/27/23 08:00 98.2 F 100 H 16 113/67 95 Room Air Intake and Output 11/27/23 11/27/23 11/28/23 15:59 23:59 07:59 Intake Total 810 / 1085 275 / 1085 Output Total 200 / 850 0 / 850 650 / 650 Balance 610 / 235 275 / 235 -650 / -650 Intake: Intake, Oral Amount 810 / 1085 275 / 1085 Output: Output, Urine Amount 200 / 850 0 / 850 650 / 650 Other: Number of Unmeasured Voids 1 Weight 104.099 kg Patient Weight 11/28/23 23:59 Weight 104.099 kg Laboratory Results - last 24 hr 11/27/23 06:28: Sodium 135 L, Potassium 4.5, Chloride 99, Carbon Dioxide 34 H, Anion Gap 6.5, BUN 19, Creatinine 1.00, Estimated Creat Clear 81, Estimated GFR 71, Est GFR ( Amer) 86, Glucose 183 H, Hemoglobin A1c 7.3 H, Calcium 8.9 11/27/23 10:49: POC Glucose 139 H 11/27/23 16:15: POC Glucose 187 H 11/28/23 00:43: POC Glucose 109 11/28/23 01:00: Urine Color Yellow, Urine Appearance Clear, Urine pH 7.0, Ur Specific Tower 1.015, Urine Protein Negative, Urine Glucose (UA) Negative, Urine Ketones Trace, Urine Blood 1+, Urine Nitrate Negative, Urine Bilirubin Negative, Urine Urobilinogen 1.0, Ur Leukocyte Esterase Negative I & O for Labs for Last 24 Hours: Intake & Output 11/25/23 11/26/23 11/27/23 11/28/23 23:59 23:59 23:59 23:59 Intake Total 1085 / 1085 Output Total 200 / 850 650 / 650 Balance 885 / 235 -650 / -650 Weight 117.934 kg 104.099 kg 104.099 kg Constitutional: Present no acute distress and obese Head: Present atraumatic and normocephalic Respiratory: Present normal respiratory effort; Absent rhonchi, wheezes or crackles Cardiac: Present Reg Rate and Rhythm GI: Present soft and normal bowel sounds; Absent distention or tenderness Extremities: Present full ROM and tenderness (Over left thigh, postsurgical band age in place); Absent normal inspection Skin: Present intact; Absent erythema Neuro: Present Grossly Intact, alert, awake, oriented x 3 and moves all ex tremities Assessment and Plan *Assessment and plan (1) Fracture, intertrochanteric, left femur: Status: Acute Qualifiers: Encounter type: initial encounter Fracture type: closed Fracture alignment: nondisplaced Qualified Code(s): S72.145A - Nondisplaced intertrochanteric fracture of left femur, initial encounter for closed fracture Category: Medical Code(s): S72.142A - Displaced intertrochanteric fracture of left femur, initial encounter for closed fracture (2) Chronic anticoagulation: Status: Acute Category: Medical Code(s): 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 anticoagulants (3) A-fib: Status: Acute Qualifiers: Atrial fibrillation type: persistent (not longstanding) Qualified Code(s): I48.19 - Other persistent atrial fibrillation Category: Medical Code(s): I48.91 - Unspecified atrial fibrillation (4) T2DM (type 2 diabetes mellitus): Status: Acute Qualifiers: Diabetes mellitus manager long term care insulin use: with manager long term care use Diabetes mellitus complication status: without complication Qualified Code(s): E11.9 - Type 2 diabetes mellitus without complications; Z79.4 - termite control representative (current) use of insulin Category: Medical Code(s): E11.9 - Type 2 diabetes mellitus without complications (5) Anxiety: Status: Acute Category: Medical Code(s): F41.9 - Anxiety disorder, unspecified Plan This is an 83-year-old male with a past medical history of A-fib on Xarelto who was admitted for further evaluation of left intertrochanteric fracture. Orthopedics consulted. Patient taken for surgery this morning. Successful cephalomedullary nailing of left hip fracture. Continues to require inpatient management. PT OT eval in the morning. Problems addressed as follows: #Left intertrochanteric fracture Dr. Armas with orthopedics consulted, decision made to take patient to OR today. Has been at least 48 hours since being off Xarelto. -Successful cephalomedullary nailing of left hip. -PT and OT consulted to evaluate tomorrow -Resume Xarelto in the morning - continue Tylenol 650 mg every 4 hours as needed for pain, morphine 4 mg IV every 4 hours as needed for pain. Monitoring for toxicity. -Hemoglobin 13.6 today. Platelets 115. Repeat CBC, CMP, magnesium ordered for the morning. Hypomagnesemia -Kidney function normal with creatinine of 1 BUN of 17. Magnesium low however at 1.3. Status post 2 g IV. Repeat level in the morning #Chronic anticoagulation #A-fib # Chronic hypotension Anticoagulation on hold, on no rate controlling medications. More tachycardic today. Initiate metoprolol tartrate 12.5mg BID for rate control. Resume midodrine 10 mg 3 times a day for low blood pressure. #T2DM Continue sliding scale insulin, diabetic diet; A1c 7.3, at goal less than 8 given patient's age and comorbidities. Resume home long-acting insulin to 16 units nightly Resume metformin 1000 mg twice daily #Anxiety Continue home anxiety medications DVT PPx: Home Xarelto on hold, will resume in morning Full code Diabetic diet
[2023-11-28 07:31] LABS: Basophils % 0.4 % (0.1-2.0); Chloride 99 mmol/L (98-107); Eosinophils # 0.1 K/mm3 (0.0-0.4); Eosinophils % 1.7 % (0.1-12.0); Hemoglobin 13.6 g/dL (14.1-18.0); Lymphocytes # 2.1 K/mm3 (0.7-4.5); Lymphocytes % 30.3 % (10-50); Mean Corpuscular HGB Conc 32.3 g/dL (31.8-35.4); Mean Platelet Volume 7.5 fl (7.4-10.4); Monocytes # 0.5 K/mm3 (0.1-1.0); Monocytes % 6.9 % (1.7-9.3); Neutrophils # 4.3 K/mm3 (1.8-7.8); Neutrophils % 60.7 % (37.0-80.0); Platelet Count 115 K/mm3 (142-424); Potassium 4.5 mmoL/L (3.5-5.1); Red Blood Count 4.24 M/mm3 (4.60-6.20); Red Cell Distribution Width 14.2 % (11.5-17.5); Sodium 133 mmol/L (136-145); White Blood Count 7.1 K/mm3 (4.8-10.8)
[2023-11-28 07:34] LABS: Alanine Aminotransferase 20 U/L (12-78); Albumin Level 3.6 g/dl (3.5-5.0); Albumin/Globulin Ratio 1.6 (1.1-1.8); Alkaline Phosphatase 64 U/L (38-126); Anion Gap 7.5 mEq/L (5-15); Aspartate Amino Transferase 25 U/L (17-59); Bilirubin,Total 1.8 mg/dl (0.2-1.3); Blood Urea Nitrogen 17 mg/dl (9-20); Carbon Dioxide 31 mmol/L (22.0-30.0); Creatinine Clearance Estimated 81 mL/min (50-200); Estimated Glomerular Filt Rate 71 ml/min (>60); GFR (African American) 86 ML/MIN (>60); Globulin 2.3 g/dL (1.3-3.2); Glucose 166 mg/dl (74-100); Total Protein,Serum 5.9 g/dl (6.3-8.2)
[2023-11-28 07:35] LABS: Magnesium 1.3 mg/dl (1.6-2.3)
--- NOTE | 2023-11-28 07:51 | P.PNANES_ITS ---
[facility] Disclaimer: The information contained in this section may have been updated after the patient was seen, as this information can be updated by other users. Medical History (Updated 11/26/23 @ 21:31 by AQUILES Manning) Arthritis Diabetes Afib Hypotension Abnormal electrocardiography Dyspnea Family History (Updated 11/26/23 @ 21:58 by Marta Moon RN) Other Family history of cancer Social History (Updated 11/26/23 @ 21:58 by Marta Moon RN) Smoking Status: Former smoker alcohol intake: never substance use type: denies use current occupational status: disabled Travel in the last 8 weeks: Inside the [place] household members: spouse and children housing: house [facility] Anesthesia Checklist Patient Identification Patient Identification: Arm Band Structural Data Admitted From: Inpatient Planned Operative Procedure/s: Left Femur Cephalomedullary Nailing Consent for Planned Operative Procedure(s) Verified: Yes Verified Documents: Surgical Consent and History and Physical NPO Status Verified Time NPO: 00:00 Additional verifications Anesthesia Reactions: No Airway Assessment Mallampati Score:: Class II C-Spine Mobility Assessed: Yes TMJ Mobility Assessed: Yes Dentition: Edentulous Neurological Assessment Level of Consciousness: Awake, Alert and Appropriate Anesthesia Plan Anesthesia Risk discussed: Yes Anesthesia Plan: Verified ASA Class: III Anesthesia Type: General
[2023-11-28 07:59] LABS: POC Glucose,Bedside 154 (70-110)
--- NOTE | 2023-11-28 09:18 | SUR.OPER ---
Bryn Awan RN updated family at this time
--- NOTE | 2023-11-28 09:37 | SUR.OPER ---
Christin RN updated family at this time
--- NOTE | 2023-11-28 09:41 | XR_ITS ---
PROCEDURE INFORMATION: Exam: XR Left Hip Exam date and time: 11/28/2023 9:41 AM Age: 83 years old Clinical indication: Device placement; Other: Left hip cephalomedullary nailing; Prior surgery; Surgery date: Post-operative (0-2 days); Patient HX: C-arm time : 1.30 min. C-arm dose : 30.54 mgy TECHNIQUE: Imaging protocol: Radiologic exam of the left hip. Views: 2 or 3 views hip with pelvis when performed. COMPARISON: CT ANGIO ABDOMEN PELVIS 11/26/2023 7:00 PM FINDINGS: Bones/joints: Fluoroscopic spot films demonstrate compression screw in the femoral neck and head and an intramedullary deann in the proximal femur. Soft tissues: Unremarkable. IMPRESSION: Fluoroscopic spot films demonstrate compression screw in the femoral neck and head and an intramedullary deann in the proximal femur.
--- NOTE | 2023-11-28 10:05 | P.PNANES_ITS ---
[facility] Anesthesia Record Part I Anesthesia Record I Intake, IV Amount: 1,000 Hydration: Adequate Estimated blood loss (mL): 50 Urine output (mL): 200 Blood Products used (#): none Blood Pressure: 149/84 SaO2: 92 Pulse Rate: 112 Airway Patency: Patent Respiratory Rate: 16 Temperature: 98.4 F Patient is:: Drowsy and Stable Stable to PACU at:: 10:00
--- NOTE | 2023-11-28 10:07 | EXP.OP.NOTE ---
Date of procedure: 11/28/23 Pre-op Diagnosis:: Left intertrochanteric hip fracture Post-op Diagnosis:: Same Procedure performed:: Cephalomedullary nailing left proximal femur fracture Surgeon:: Gadiel Armas DO GREENHOUSE SPECIALIST:: Chinedu Mark Anesthesia: GETA Estimated blood loss (mL): 100 Operative findings:: Minimally displaced intertrochanteric hip fracture Operative note:: This is a 83-year-old male who unfortunately suffered a mechanical fall in his left hip and suffered an intertrochanteric hip fracture. Presents today for operative fixation of the hip fracture. Patient was identified preoperatively left hip was marked with yes and my initials. Transferred operative suite given general anesthesia and airway secured. Then placed onto the fracture table. Within the fracture table the nonoperative right sided leg was placed in a semilithotomy position well-padded. The left lower extremity was placed in line with fracture table and perineal pad. The leg was then placed in line with the floor and x-ray was brought into identify intertrochanteric hip fracture which was minimally displaced. AP and lateral views of the hip confirm this. Left hip was then prepped and draped in normal sterile fashion. Once prepped and draped final operative timeout performed to identify proper patient procedure and extremity. Everyone involved in the case agreed. There were no counter indications to beginning. He did receive preoperative antibiotics. Marking pen was used to stephon a planned incision 2 fingerbreadths above the tip of the greater trochanter. Skin knife was used to incise through skin deep knife was used to incise through the IT band. Tip of the greater trochanter palpated. And then the starting guidewire was placed in the tip of the trochanter. And advanced into the femur. AP and lateral views and the x-rays confirm proper placement of the opening guidewire. The superior opening reamer was then utilized over the guidewire. Guidewire was left in place and the short 130 degree 11 mm TFN nail was selected and placed over the guidewire. X-ray was utilized to confirm proper depth of the deann. At that time the triple cannulated guide was placed and the guidewire was placed into the femoral neck and head this was visualized on the AP and lateral views to be in good position in the center center position. The measured this helical blade to 110 mm. The lateral cortex reamer was utilized followed by the stepped reamer. Size 110 helical blade was selected and impacted into place direct view on the AP and lateral x-ray showed good position. Once this was complete the superior locking mechanism was tightened onto the helical blade to allow for sliding. Attention was then brought distally through the same aiming guide the distal locking screw was placed bicortical size 44. AP and lateral views were taken again to show adequate placement of the helical blade. Irrigation of the wounds performed. Deep layers of the IT band were closed with 0 Vicryl suture. Subcutaneous closed with 2-0 Vicryl. Surgical clips in the skin for closure. Sterile dressing placed with Xeroform 4 x 4's ABDs tape Patient awakened from anesthesia taken recovery in stable condition. Condition: stable Disposition: PACU Complications:: None apparent
[2023-11-28] MEDS: ONDANSETRON 4MG/2ML VIAL 4 MG IV (10:12)
[2023-11-28] MEDS: MORPHINE 4MG/ML SYRINGE 4 MG IV ×2 (11:07→20:43)
[2023-11-28] MEDS: MAGNESIUM SULFATE IN WATER 2 GM/50 ML PIGGYBACK IV (11:12)
[2023-11-28 11:34] LABS: POC Glucose,Bedside 187 (70-110)
--- NOTE | 2023-11-28 11:58 | P.PNANES_ITS ---
[facility] Anesthesia Record Part II Anesthesia Record Part II Discharge Time: 10:30 Destination: Medical Surgical Department PACU nurse assessment reviewed?: Yes Patient Condition:: Good Anesthesia Complications:: None Swallowing reflex intact?: Yes Airway Patency: Patent Cyanosis?: No Blood Pressure: 94/76 SaO2: 108 Respiratory Rate: 20 Pulse Rate: 93 Temperature: 99.1 F Mental Status: Alert & Oriented Pain level:: 0 Nausea and/or vomitting:: None Intake, IV Amount: 0 Hydration: Adequate
[2023-11-28] MEDS: MIDODRINE HCL 5 MG TABLET 10 MG PO ×2 (14:14→20:47)
[2023-11-28] MEDS: CEFAZOLIN SODIUM 1 GM in 0.9 % SODIUM CHLORIDE 50 ML IV ×2 (14:14→20:47)
[2023-11-28] MEDS: HYDROCODONE 10MG/APAP 325MG TAB 1 TAB PO (14:18)
[2023-11-28] MEDS: METOPROLOL TARTRATE 5MG/5ML VIAL 5 MG IV (15:04)
[2023-11-28] MEDS: humaLOG 100 UNITS/ML 3ML VIAL (SSI) SQ ×2 (16:33→20:53)
[2023-11-28 16:39] LABS: POC Glucose,Bedside 235 (70-110)
[2023-11-28] MEDS: METFORMIN 500MG TABLET 1000 MG PO (16:40)
[2023-11-28] MEDS: RIVAROXABAN 10MG TABLET 20 MG PO (16:40)
--- NOTE | 2023-11-28 16:46 | PC.NURSE ---
PT IS RESTING IN BED. ALERT AND ORIENTED X3. PT WILL OCCASIONALLY FORGET THAT HE JUST HAD SURGERY AND WILL TELL STAFF HE NEEDS TO GET OOB. REPOSITIONED FREQUENTLY IN BED. MEDICATED PER MAR FOR DISCOMFORT. DRESSING TO THE LEFT HIP C/D/I. EATING AND DRINKING WELL. O2 SATURATION 90-92% ON ROOM AIR. WILL CONTINUE TO MONITOR.
--- NOTE | 2023-11-28 18:45 | HMH.PTEV ---
Physical Therapy Evaluation Rehab PT IP Evaluation Start: 11/28/23 10:15 Freq: ONCE Status: Active Protocol: Document 11/28/23 18:34 HWADE (Rec: 11/28/23 18:45 HWADE [id number]) Subjective/History History History Pt is a 83 year old male that presented to [facility] ED with reports of L hip pain following a fall off elevated chair at home. Imaging in ED positive for to multi fragmented nondisplaced left intertrochanteric fracture. Pt underwent cephalomedullary nailing left proximal femur fracture with Dr. sanchez on 11/27. Per order, pt to be WBAT on LLE with use of RW during mobility. PMH significant for A-fib on Xarelto, T2DM, AAA, anxiety, chronic pain. Subjective Subjective Pt presents supine in bed, pleasant and agreeable to PT evaluation. Reviewed pt's WBing precautions, pt to be WBAT on LLE with use of RW during mobility. Pt reports 8/ 10 LLE pain at rest. Pt reports at baseline, he lives at home with his in a H with 5-6 DARREN (B) handrail present. Pt reports he normally ambulates with a SPC and is (I) with all activities. Pt reports he does not wear supplemental O2 at home. Pt performed supine to sit on EOB with mod A x1, required assistance to place LLE off EOB and position trunk to upright position. Pt able to maintain static sitting at EOB with supervision A. Pt performed sit to stand transfer from elevated bed with min A x1 and use of a RW. Pt able to maintain static stance with min A. SPT to bedside chair was attempted, however pt was unable to advance LLE/RLE d/t increased L hip pain with WBing and pt returned to sitting on EOB. Pt performed sit on EOB to supine with mod A. Following evaluation, pt left supine in bed with bed alarm active, call light and all needs within reach. Vitals: BP 120/63mmHg HR 100bpm SPO2 96% on 2L via NC New diagnosis of cancer in past 12 No months? Rehab PT IP Eval Objective Appearance Patient Behavior Appropriate,Cooperative Patient Orientation Person,Place,Time,Situation Difficulty following instructions none Speech Pattern Clear,Appropriate Ambulation Patient Able to Ambulate No Balance Ability to Arise Able, uses arms to help Sitting Balance Steady, safe Standing Balance Steady, wide stance Dynamic Sitting Balance Ability Good Dynamic Standing Balance Ability Fair Transfers Bed Transfer Ability Moderate x 1 (50% assist) Sit to Stand Bed Transfer Ability Minimal x 1 (25% assist) Pain Left Hip Pain Intensity 8 ROM RLE PT ROM Status WFL LLE PT ROM Status ABN Abnormal ROM Comment AROM limited d/t pain MMT RLE PT MMT WFL LLE PT MMT ABN Abnormal MMT Grade 2-/5, limited by pain and post -op weakness Rehab PT IP prob,goals,plan Problems Date of Evaluation: 11/28/23 PT IP Problems Bed Mobility,Transfers,Gait, Balance,Self care,Safety Rehab Potential Rehab Potential Good Equipment Needs Assistive Devices Rolling / Wheeled Walker Plan PT Intervention Plan Bed Mobility,Transfers,Gait, Balance,Self care,Safety, Therapeutic Exercise PT Plan Frequency BID Duration LOS Discharge Goals Bed Transfer Ability Minimal x 1 (25% assist) Sit to Stand Chair Transfer Ability Contact Guard/Hand Hold Ambulation Assistive Device Rolling Walker Ambulation Distance (feet) 15 Discharge Plan PT Discharge Plan Pt participated in PT initial evaluation this date. Based on the identified impairments, pt would benefit from skilled PT intervention during IP admission to address deficits, reduce risk of falls prevent functional decline and allow pt to return to OF. Once medically stable, recommend pt to d/c to STR to address remaining deficits. Eval Complexity Eval Charge Codes 78300 - Moderate Complexity PHYSICIAN CERTIFICATION: I certify the specified therapy services for Boubacar Baxter are required, authorized, and reviewed every 30 days.
[2023-11-28] MEDS: 0.9 % SODIUM CHLORIDE 1000ML 1,000 ML 50 ML IV (20:46)
[2023-11-28] MEDS: METOPROLOL SUCCINATE XL 25MG TABLET 12.5 MG PO (20:47)
[2023-11-28] MEDS: TAMSULOSIN 0.4MG CAPSULE 0.400000000000000022 MG PO (20:47)
[2023-11-28] MEDS: PANTOPRAZOLE 40MG TABLET 40 MG PO (20:47)
[2023-11-28] MEDS: INSULIN GLARGINE 100 UNITS/ML 3ML FLEXPEN 16 UNIT SQ (20:47)
[2023-11-28] MEDS: DONEPEZIL 10MG TAB 10 MG PO (20:47)
[2023-11-28] MEDS: GABAPENTIN 800MG TABLET 800 MG PO (20:47)
[2023-11-28 20:56] LABS: POC Glucose,Bedside 207 (70-110)
[2023-11-29] VITALS: BP 127/65; PULSE 97; RESP 15; TEMP 36.6; O2SAT 93
[2023-11-29 04:00] VITALS: BP 102/53; PULSE 90; RESP 15; TEMP 36.9; O2SAT 96; BMI 33.0
--- NOTE | 2023-11-29 05:13 | PC.NURSE ---
Pt is alert and oriented, intermittently confused but easily reorients. Pt did rip off original dressing, forgetting what it was there for, redressed, and reminded patient of need for dressing to stay intact, verbalized understanding. Pt has complained of pain, treated per mar. Pt has rested very well this shift. Skelton in place, draining clear yellow urine. Pt has had no other complaints. Bed alarm on. Call light in reach.
[2023-11-29] MEDS: OXYCODONE 5MG IMMEDIATE RELEASE TABLET PO (06:28)
[2023-11-29 06:30] LABS: POC Glucose,Bedside 138 (70-110)
[2023-11-29 06:42] LABS: Eosinophils # 0.1 K/mm3 (0.0-0.4)
[2023-11-29 06:45] LABS: Chloride 99 mmol/L (98-107); Sodium 132 mmol/L (136-145)
[2023-11-29 06:46] LABS: Potassium 4.1 mmoL/L (3.5-5.1)
[2023-11-29 06:48] LABS: Alanine Aminotransferase 15 U/L (12-78); Albumin Level 3.2 g/dl (3.5-5.0); Albumin/Globulin Ratio 1.5 (1.1-1.8); Alkaline Phosphatase 59 U/L (38-126); Anion Gap 6.1 mEq/L (5-15); Aspartate Amino Transferase 30 U/L (17-59); Bilirubin,Total 1.1 mg/dl (0.2-1.3); Blood Urea Nitrogen 27 mg/dl (9-20); Carbon Dioxide 31 mmol/L (22.0-30.0); Creatinine Clearance Estimated 83 mL/min (50-200); Estimated Glomerular Filt Rate 71 ml/min (>60); GFR (African American) 86 ML/MIN (>60); Globulin 2.1 g/dL (1.3-3.2); Total Protein,Serum 5.3 g/dl (6.3-8.2)
[2023-11-29 06:49] LABS: Calcium 8.3 mg/dl (8.4-10.2); Glucose 135 mg/dl (74-100)
[2023-11-29 06:54] LABS: Basophils % 0.5 % (0.1-2.0); Eosinophils % 1.7 % (0.1-12.0); Hematocrit 38.4 % (42.0-52.0); Lymphocytes % 28.8 % (10-50); Mean Corpuscular HGB Conc 31.3 g/dL (31.8-35.4); Mean Corpuscular Hemoglobin 30.6 pg (27.0-31.2); Mean Corpuscular Volume 97.7 fl (80-94); Mean Platelet Volume 7.9 fl (7.4-10.4); Monocytes # 0.4 K/mm3 (0.1-1.0); Monocytes % 5.9 % (1.7-9.3); Neutrophils # 4.4 K/mm3 (1.8-7.8); Platelet Count 129 K/mm3 (142-424); Red Blood Count 3.93 M/mm3 (4.60-6.20); Red Cell Distribution Width 14.4 % (11.5-17.5); White Blood Count 6.9 K/mm3 (4.8-10.8)
[2023-11-29] MEDS: METFORMIN 500MG TABLET 1000 MG PO (07:04)
[2023-11-29 07:13] LABS: Magnesium 1.4 mg/dl (1.6-2.3)
[2023-11-29 07:40] VITALS: BP 98/63; PULSE 100; RESP 19; TEMP 36.9; O2SAT 96
[2023-11-29] MEDS: DOCUSATE SODIUM 100 MG CAPSULE PO (08:36)
[2023-11-29] MEDS: FINASTERIDE 5MG TABLET 5 MG PO (08:36)
[2023-11-29] MEDS: CITALOPRAM 20MG TABLET 20 MG PO (08:36)
[2023-11-29] MEDS: MIDODRINE HCL 5 MG TABLET 10 MG PO ×2 (08:37→13:34)
[2023-11-29] MEDS: METOPROLOL SUCCINATE XL 25MG TABLET 12.5 MG PO (08:37)
[2023-11-29] MEDS: GABAPENTIN 800MG TABLET 800 MG PO (08:37)
[2023-11-29] MEDS: MORPHINE 4MG/ML SYRINGE 4 MG IV (08:45)
[2023-11-29] MEDS: MAGNESIUM OXIDE 400MG TABLET 400 MG PO (09:17)
[2023-11-29] MEDS: MAGNESIUM SULFATE IN WATER 2 GM/50 ML PIGGYBACK IV (09:17)
--- NOTE | 2023-11-29 09:24 | SW/DCPLANNER ---
Addendum entered by Kristen Harris 11/29/23 14:39: Per Alyx w/ [facility] this patient has been approved SNF level of care. Per Dr Isabel patient will discharge today. Addendum entered by Kristen Harris 11/29/23 13:55: Alyx stated she will be starting precert for this patient today. Original Note: I spoke w/ this patient regarding plans once medically stable for discharge. PT/OT evaluated patient and recommended SNF level of care. Patient is agreeable to placement at this time and prefers [facility]. Patient/granddaughter also stated that if [facility] could not accept they would be interested in [facility] or [facility]. Patient information has been faxed to [facility] at this time. I will continue to follow up w/ Alyx at [facility] and patient/family. Discharge date is unknown at this time.
[2023-11-29 09:30] VITALS: BMI 33.0
--- NOTE | 2023-11-29 09:59 | HMH.OTEV ---
OT Inpatient Evaluation Rehab OT IP Evaluation Start: 11/28/23 10:15 Freq: ONCE Status: Active Protocol: Document 11/29/23 09:55 [facility] (Rec: 11/29/23 09:59 [facility] [id number][facility] Rehab OT IP Assessment Subjective History Pt oriented x 3 on arrival. Pt agreeable to engage in therapy evaluation. Pt is a 83 year old male that presented to [facility] ED with reports of L hip pain following a fall off elevated chair at home. Imaging in ED positive for to multi fragmented nondisplaced left intertrochanteric fracture. Pt underwent cephalomedullary nailing left proximal femur fracture with Dr. sanchez on 11/27. Per order, pt to be WBAT on LLE with use of RW during mobility. PMH significant for A-fib on Xarelto, T2DM, AAA, anxiety, chronic pain. Subjective I am not in too bad pain. Pt reports at baseline, he lives at home with his in a H with 5-6 DARREN (B) handrail present. Pt reports he normally ambulates with a SPC and is (I) with all ADLS and IADLS. He also still drives. Pt reports he does not wear supplemental O2 at home. Objective Patient Orientation Person,Place,Birthday Right Upper Extremity Gross ROM WFL Left Upper Extremity Gross ROM WFL Bed Mobility bed mobility-scooting,bed mobility - supine/sit Assist Level Moderate x 2 (50% assist) Transfer Training Sit/Stand Transfer Assist Level Minimal x 2 (25% assist) Rehab OT IP prob,goals,plan Problems Date of Evaluation: 11/29/23 OT IP Problems Bed Mobility,Transfers,Balance ,Self care,Safety Rehab Potential Rehab Potential Good Equipment Needs Assistive Devices Rolling / Wheeled Walker Plan OT intervention Plan Bed Mobility,Transfers,Balance ,Self care,Safety,Therapeutic Exercise OT Plan Frequency Daily Duration LOS Discharge Goals Bed Mobility Ability Assistance x1 Sit to Stand Chair Transfer Ability Minimal x 1 (25% assist) Chair Transfer Ability Minimal x 1 (25% assist) Chair Transfer Technique Sit to/from Ambulatory Chair Transfer Assistive Devices Rolling Walker Feeding Ability Assist with Tray Set Up Lower Body Dressing Ability Moderate Assistance Upper Body Dressing Ability Minimal Assistance Bathing Ability Moderate Assistance Performing Toilet Hygiene Ability Moderate Assistance Overall Commode/Toilet Transfer Ability Minimal Assistance Commode/Toilet Transfer Technique Sit to/from Ambulatory Commode/Toilet Transfer Assistive Grab Bars Devices Oral Care Assist Contact Guard Decrease in Endurance Yes Discharge Plan OT Discharge Plan Pt will continue to be seen for OT services while at [facility]. Pt would benefit most from short term rehab at [facility]. Continued skilled therapy is important in order for patient to improve strength, safety, endurance, ADL independence, and functional transfers to reach PLOF and PLOI. Eval Complexity Eval Charge Codes 08196 - Moderate Complexity PHYSICIAN CERTIFICATION: I certify the specified therapy services for Boubacar Baxter are required, authorized, and reviewed every 30 days.
[2023-11-29] MEDS: POLYETHYLENE GLYCOL 3350 17 GM PACKET PO (10:54)
[2023-11-29 11:06] LABS: POC Glucose,Bedside 208 (70-110)
[2023-11-29] MEDS: humaLOG 100 UNITS/ML 3ML VIAL (SSI) SQ (11:11)
[2023-11-29] MEDS: HYDROCODONE 10MG/APAP 325MG TAB 1 TAB PO (13:36)
--- NOTE | 2023-11-29 14:37 | EXP.DC.SUM ---
General Admission date:: 11/26/23 Discharge date: 11/29/23 HPI HPI HPI: This is a very pleasant 83-year-old male with a past medical history of A-fib on Xarelto, T2DM, AAA, anxiety chronic pain who presents to the emergency department today after mechanical fall. He reports standing on a chair trying to remove republican decorations when he turned around and fell off the chair. He denies any dizziness or palpitations prior to this fall. States that when he landed he had pain in the back of his head and his left hip. He denies LOC. States that he is on Xarelto and his last dose was this morning. Emergency department workup mostly unremarkable except for left intertrochanteric fracture. Further traumagram negative. No evidence of bleeding. Head CT, C-spine CT negative. Orthopedics consulted for treatment options in regards to left hip fracture. Hospital Course Hospital Course Hospital Course: This is an 83-year-old male with a past medical history of A-fib on Xarelto who was admitted for further evaluation of left intertrochanteric fracture. Orthopedics consulted. Patient taken for surgery 11/27 with successful cephalomedullary nailing of left hip fracture. Evaluated by therapy. Needing placement for rehab. Graciously excepted by [facility] for further management. Stable to discharge. Problems addressed as follows: #Left intertrochanteric fracture Left intertrochanteric fracture on imaging on arrival. Dr. Armas with orthopedics consulted, decision made to take patient to OR 11/27. Has been at least 48 hours since being off Xarelto. Successful cephalomedullary nailing of left hip. PT and OT evaluating patient. Recommend placement for rehab. Xarelto resumed the day after surgery. Received dose prior to discharge. Tolerating pain regimen with decrease back to his home hydrocodone dose. Continue hydrocodone at discharge. Medication sent to [facility]. White cell count normal on day of discharge 6.9, hemoglobin 12. No active signs of bleeding. Platelets 129. -Needs repeat CBC, CMP, magnesium in 1 week Hypomagnesemia: Kidney function normal with creatinine of 1 BUN of 27. Magnesium low however at 1.4. Status post 2 g IV today. Continue oral repletion at discharge. #Chronic anticoagulation #A-fib # Chronic hypotension Held anticoagulation in the perioperative setting. Resume at discharge. Rate has been up during admission after surgery. Tolerating metoprolol 12.5 mg twice daily with improvement in rate control between 90 and 100. Has chronic hypotension, resumed home midodrine 10 mg 3 times a day for low blood pressure. #T2DM A1c 7.3, at goal less than 8 given patient's age and comorbidities. Resume home long-acting insulin nightly, Resume metformin 1000 mg twice daily #Anxiety: Continue home anxiety medications Stable to discharge for rehab. Controlled substances sent to [facility]. Total time spent on discharge 36 minutes in counseling, documentation, chart review, and direct care with patient. Exam Data for Last 24 hours Vital signs and Labs for Last 24 Hours: Temp Pulse Resp BP Pulse Ox O2 Del Method O2 Flow Rate 98.4 F 100 H 19 98/63 L 96 Room Air 1 11/29/23 07:40 11/29/23 07:40 11/29/23 07:40 11/29/23 07:40 11/29/23 07:40 11/29/23 12:35 11/29/23 11:00 Laboratory Results - last 24 hr 11/28/23 16:32: POC Glucose 235 H 11/28/23 20:49: POC Glucose 207 H 11/29/23 05:35: WBC 6.9, RBC 3.93 L, Hgb 12.0 L D, Hct 38.4 L, MCV 97.7 H, MCH 30.6, MCHC 31.3 L, RDW 14.4, Plt Count 129 L, MPV 7.9, Neut % (Auto) 63.0, Lymph % (Auto) 28.8, [place] % (Auto) 5.9, Eos % (Auto) 1.7, Baso % (Auto) 0.5, Neut # (Auto) 4.4, Lymph # (Auto) 2.0, [place] # (Auto) 0.4, Eos # (Auto) 0.1, Baso # (Auto) 0.0, Sodium 132 L, Potassium 4.1, Chloride 99, Carbon Dioxide 31 H, Anion Gap 6.1, BUN 27 H D, Creatinine 1.00, Estimated Creat Clear 83, Estimated GFR 71, Est GFR ( Amer) 86, Glucose 135 H, Calcium 8.3 L, Magnesium 1.4 L, Total Bilirubin 1.1, AST 30, ALT 15, Alkaline Phosphatase 59, Total Protein 5.3 L, Albumin 3.2 L D, Globulin 2.1, Albumin/Globulin Ratio 1.5 11/29/23 06:23: POC Glucose 138 H 11/29/23 10:58: POC Glucose 208 H I & O for Last 24 hours: Intake & Output 11/26/23 11/27/23 11/28/23 11/29/23 23:59 23:59 23:59 23:59 Intake Total 1085 / 1085 1892 / 1892 360 / 360 Output Total 200 / 850 1999 / 1999 1630 / 1630 Balance 885 / 235 -108 / -108 -1270 / -1270 Weight 117.934 kg 104.099 kg 104.099 kg 107 kg Constitutional Constitutional: no acute distress, obese, chronically ill appearing and cooperative *Routine HEENT Exam Head: Present normocephalic Eye: Present EOMI and PERRL ENT: Present mucous membranes moist *Routine Neck Exam Neck: Present supple; Absent lymphadenopathy *Routine Respiratory Exam Respiratory: Present CTA bilaterally; Absent rhonchi, wheezes or crackles *Routine Cardiovascular Exam Cardiovascular: Present RRR *Routine Abdominal Exam Abdominal: Present soft and normoactive bowel sounds; Absent tenderness *Routine Rectal Exam Patient deferred: visual exam *Routine Exam Patient deferred: penile exam *Routine Extremities Exam Extremities: Absent cyanosis, clubbing or edema Comments: Left hip with no bleeding. Surgical incision clean dry and intact. No erythema. Mild tenderness to palpation *Routine Skin Exam Skin: Present intact and warm; Absent rash *Routine Neurological Exam Neurological: Present alert, oriented X3 and moving all extremities; Absent altered mental status Routine Psychiatric Exam Psychiatric: Present normal affect Results Data Completed and Pending Labs on day of discharge: Labs from last 24 hours 11/29/23 11/29/23 11/29/23 10:58 06:23 05:35 WBC 6.9 RBC 3.93 L Hgb 12.0 L D Hct 38.4 L MCV 97.7 H MCH 30.6 MCHC 31.3 L RDW 14.4 Plt Count 129 L MPV 7.9 Neut % (Auto) 63.0 Lymph % (Auto) 28.8 [place] % (Auto) 5.9 Eos % (Auto) 1.7 Baso % (Auto) 0.5 Neut # (Auto) 4.4 Lymph # (Auto) 2.0 [place] # (Auto) 0.4 Eos # (Auto) 0.1 Baso # (Auto) 0.0 Sodium 132 L Potassium 4.1 Chloride 99 Carbon Dioxide 31 H Anion Gap 6.1 BUN 27 H D Creatinine 1.00 Estimated Creat Clear 83 Estimated GFR 71 Est GFR ( Amer) 86 Glucose 135 H POC Glucose 208 H 138 H Calcium 8.3 L Magnesium 1.4 L Total Bilirubin 1.1 AST 30 ALT 15 Alkaline Phosphatase 59 Total Protein 5.3 L Albumin 3.2 L D Globulin 2.1 Albumin/Globulin Ratio 1.5 11/28/23 11/28/23 20:49 16:32 WBC RBC Hgb Hct MCV MCH MCHC RDW Plt Count MPV Neut % (Auto) Lymph % (Auto) [place] % (Auto) Eos % (Auto) Baso % (Auto) Neut # (Auto) Lymph # (Auto) [place] # (Auto) Eos # (Auto) Baso # (Auto) Sodium Potassium Chloride Carbon Dioxide Anion Gap BUN Creatinine Estimated Creat Clear Estimated GFR Est GFR ( Amer) Glucose POC Glucose 207 H 235 H Calcium Magnesium Total Bilirubin AST ALT Alkaline Phosphatase Total Protein Albumin Globulin Albumin/Globulin Ratio DS: Diagnosis Discharge Diagnosis (1) Fracture, intertrochanteric, left femur: Status: Acute Code(s): S72.142A - Displaced intertrochanteric fracture of left femur, initial encounter for closed fracture Qualifiers: Encounter type: initial encounter Fracture alignment: nondisplaced Fracture type: closed Qualified Code(s): S72.145A - Nondisplaced intertrochanteric fracture of left femur, initial encounter for closed fracture (2) Chronic anticoagulation: Status: Acute Code(s): Z79.01 - salvage determiner (current) use of anticoagulants (3) A-fib: Status: Acute Code(s): I48.91 - Unspecified atrial fibrillation Qualifiers: Atrial fibrillation type: persistent (not longstanding) Qualified Code(s): I48.19 - Other persistent atrial fibrillation (4) T2DM (type 2 diabetes mellitus): Status: Acute Code(s): E11.9 - Type 2 diabetes mellitus without complications Qualifiers: Diabetes mellitus complication status: without complication 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 Qualified Code(s): E11.9 - Type 2 diabetes mellitus without complications; Z79.4 - salvage determiner (current) use of insulin (5) Anxiety: Status: Acute Code(s): F41.9 - Anxiety disorder, unspecified Meds Home Medications and Allergies Home Medications Medication Instructions Recorded Confirmed Type finasteride 5 mg tablet 5 mg PO DAILY 05/12/21 11/27/23 History metformin 1,000 mg tablet 1,000 mg PO BIDWMEAL Diabetes 05/12/21 11/27/23 History donepezil 10 mg tablet 10 mg PO HS MEMORY 03/26/22 11/27/23 History tamsulosin 0.4 mg capsule 0.4 mg PO HS PROSTATE 03/26/22 11/27/23 History rivaroxaban 20 mg tablet 20 mg PO HS 04/27/22 11/27/23 History esomeprazole magnesium 40 mg 40 mg PO DAILY 12/05/22 11/27/23 History capsule,delayed release insulin degludec 100 unit/mL (3 20 unit SQ DAILY Diabetes 12/05/22 11/27/23 History mL) subcutaneous pen (Tresiba FlexTouch U-100 insulin) midodrine 5 mg tablet 10 mg PO TID low blood pressure 12/05/22 11/27/23 History citalopram 20 mg tablet 20 mg PO DAILY 11/27/23 11/27/23 History ferrous sulfate 325 mg (65 mg 325 mg PO DAILY 11/27/23 11/27/23 History iron) tablet (FeroSul) alprazolam 0.5 mg tablet 0.5 mg PO BIDP PRN Anxiety 10 days 11/29/23 Rx #20 tabs docusate sodium 100 mg capsule 100 mg PO DAILY 30 days #30 caps 11/29/23 Rx gabapentin 800 mg tablet 800 mg PO BID 10 days #20 tabs 11/29/23 Rx hydrocodone 10 mg-acetaminophen 1 tab PO QIDP PRN Moderate Pain 11/29/23 Rx 325 mg tablet (Scale Score 5-6) 10 days #40 tabs magnesium oxide 400 mg (241.3 mg 400 mg PO BID 30 days #60 tabs 11/29/23 Rx magnesium) tablet metoprolol succinate 25 mg 12.5 mg (1/2 x 25 mg) PO BID 30 11/29/23 Rx tablet,extended release 24 hr days #30 tabs New Prescriptions to Start Prescriptions: Clemente Dumont docusate sodium Chalo,Clemente gabapentin Chalo,Clemente hydrocodone-acetaminophen Chalo,Clemente magnesium oxide Chalo,Clemente metoprolol succinate Clemente Isabel Allergies Allergy/AdvReac Type Severity Reaction Status Date / Time No Known Allergies Allergy Verified 04/23/22 10:16 Discharge Plan Disposition Patient Disposition: Xfer [facility] Condition: Fair Discharge Order Discharge Orders: Discharge Order (Routine); Ordered 11/29/23 Ordered By: Clemente Isabel Follow up Plan Follow up with: Gadiel Armas DO [Staff Physician] - 12/16/23 9:45 am (please arrive 30 minutes prior to appointment for xrays) Prescriptions/Medication Reconciliation: New magnesium oxide 400 mg (241.3 mg magnesium) Tablet 400 mg PO BID 30 Days Qty: 60 0RF docusate sodium 100 mg Capsule 100 mg PO DAILY 30 Days Qty: 30 0RF metoprolol succinate 25 mg Tablet Extended Release 24 Hr 12.5 mg PO BID 30 Days Qty: 30 0RF Continued donepezil 10 MG tablet 10 mg PO HS tamsulosin 0.4 MG capsule 0.4 mg PO HS rivaroxaban 20 mg tablet 20 mg PO HS midodrine 5 mg tablet 10 mg PO TID Patient Comments: TAKE 1 TABLET BY MOUTH THREE TIMES DAILY BEFORE MEAL(S) esomeprazole magnesium 40 mg capsule,delayed release(DR/EC) 40 mg PO DAILY Patient Comments: TAKE 1 CAPSULE BY MOUTH ONCE DAILY insulin degludec [Tresiba FlexTouch U-100] 100 unit/mL (3 mL) insulin pen 20 unit SQ DAILY citalopram 20 mg tablet 20 mg PO DAILY Patient Comments: TAKE 1 TABLET BY MOUTH ONCE DAILY ferrous sulfate [FeroSul] 325 mg (65 mg iron) tablet 325 mg PO DAILY Patient Comments: TAKE 1 TABLET BY MOUTH ONCE DAILY hydrocodone-acetaminophen 10-325 mg tablet 1 tab PO QIDP PRN (Reason: Moderate Pain (Scale Score 5-6)) 10 Days Qty: 40 0RF alprazolam 0.5 mg tablet 0.5 mg PO BIDP PRN (Reason: Anxiety) 10 Days Qty: 20 0RF gabapentin 800 MG tablet 800 mg PO BID 10 Days Qty: 20 0RF metformin 1,000 MG tablet 1,000 mg PO BIDWMEAL finasteride 5 MG tablet 5 mg PO DAILY Problem Reconciliation Problems Reviewed?: Yes Patient Discharge Instructions ACTIVITY: Ambulate as tolerated and Up with assistance DIET: continue same diet Patient Instructions: DI for Femoral Fracture, DI for Hip Replacement, DI for Surgical Site Infection, Catheter-associated Urinary Tract Infection, Posterior Hip Replacement Discharge Instructions Picture Guide Providers Primary Care Provider: Chaparro Almanza Admit Provider: Clemente Isabel Attending Provider: Clemente Isabel
[2023-11-29] MEDS: ACETAMINOPHEN 325MG TAB 650 MG PO (14:58)
[2023-11-29] MEDS: RIVAROXABAN 10MG TABLET 20 MG PO (14:59)
== END 2023-11-29 15:41 | DRG 481 ==
LOC: ER 19:03 → 2ND 11-27 03:09
PROVIDERS: Nurse Practitioner Acute Care; Orthopaedic Surgery; Admitting Provider Internal Medicine Adolescent Medicine; Emergency Provider Emergency Medicine; PCP Internal Medicine; Visit Provider Internal Medicine Adolescent Medicine
PROC: 0QS736Z Reposition Left Upper Femur with Intramedullary Internal Fixation Device, Percutaneous Approach (ICD-10-PCS; principal; 2023-11-28 08:00)
DX: S72.145A Nondisplaced intertrochanteric fracture of left femur, initial encounter for closed fracture (principal); I48.19 Other persistent atrial fibrillation; Z79.01 Long term (current) use of anticoagulants; E11.9 Type 2 diabetes mellitus without complications; Z79.4 Long term (current) use of insulin; F41.9 Anxiety disorder, unspecified; M19.90 Unspecified osteoarthritis, unspecified site; Z87.891 Personal history of nicotine dependence; G89.29 Other chronic pain; E83.42 Hypomagnesemia; I95.89 Other hypotension; W08.XXXA Fall from other furniture, initial encounter
CPT/HCPCS: 27245; 36415; 70450; 71275; 72125; 72128; 72131; 72192; 73502; 73552; 74174; 76000; 80048; 80053; 81001; 82962; 83036; 83735; 85025; 97162; 97166; 97530; 99285; C1713; C1769; C1776; J0131; J2405; J3475; Q9967

== ENCOUNTER 2023-12-16 09:40 | Outpatient (CLI) | payer MEDICARE, SELFPAY ==
--- NOTE | 2023-12-16 09:47 | XR_ITS ---
FINAL REPORT CLINICAL HISTORY: Left Hip ORIF x 1 week ago COMPARISON: None FINDINGS: LEFT HIP 3 images of the left hip were obtained. The patient has undergone ORIF of the left proximal femur. No evidence of displaced fracture is identified. The joint spaces are intact. There is no soft tissue abnormality identified. IMPRESSION: ORIF left proximal femur. Reviewed, Interpreted and Dictated by Mohamud Holt MD Transcribed by Julissa Kwon Authenticated and [facility]
== END 2023-12-16 23:59 | disposition home or self-care (01) ==
LOC: RAD 09:41
PROVIDERS: PCP Internal Medicine; Visit Provider Orthopaedic Surgery
DX: M25.552 Pain in left hip (principal)
CPT/HCPCS: 73502

== ENCOUNTER 2023-12-18 15:35 | Observation (INO) | payer MEDICARE, SELFPAY ==
[2023-12-18 15:37] VITALS: BP 145/86; PULSE 83; RESP 24; TEMP 37.4; O2SAT 81; BMI 32.7
--- NOTE | 2023-12-18 15:47 | XR_ITS ---
PROCEDURE INFORMATION: Exam: XR Chest Exam date and time: 12/18/2023 4:05 PM Age: 83 years old Clinical indication: Other: Hypoxemia TECHNIQUE: Imaging protocol: Radiologic exam of the chest. Views: 1 view. COMPARISON: CT ANGIO CHEST 11/26/2023 7:00 PM FINDINGS: Lungs: No acute airspace process. Pleural spaces: Chronic fissural thickening in the mid right lung. No pneumothorax or pleural fluid. Heart/Mediastinum: Unremarkable. No cardiomegaly. Bones/joints: Old right-sided rib fractures. IMPRESSION: No acute findings.
--- NOTE | 2023-12-18 15:47 | PC.NURSE ---
Dr. Romero at BS for pt eval
--- NOTE | 2023-12-18 15:48 | PC.NURSE ---
DR FARR AT BEDSIDE
--- NOTE | 2023-12-18 15:58 | ED_ITS ---
Discharge Plan Disposition Patient Disposition: Admitted Chief Complaint: Nausea/Vomiting/Diarrhea Clinical Impressions Clinical Impression: Pneumonia, Acute hypoxemic respiratory failure, Hypoglycemia Discharge ED Provider: Zion Romero General Adult HPI General Chief complaint: Nausea/Vomiting/Diarrhea Stated complaint: post op 11/27, vomiting Time Seen by Provider: 12/18/23 15:38 History of Present Illness HPI narrative: Please note that above description of symptoms, in this electronic medical record under categorization of recalled from ER triage doctor by RN are reflective of an initial nursing assessment, however, is not reflective of my full history and physical exam that was personally taken and clarified. Consequentially, this preceding description of symptoms, which may include the patient's categorized chief complaint in the EMR, do not reflect my personal clinical impression, and the ultimate description of history of present illness and patient stated complaints should be deferred to this section of the note. Unless stated otherwise or congruent with this section of the note, additional signs, symptoms, or incongruence should be interpreted as inaccurate with my clinical impression. Related Data Home Medications Medication Instructions Recorded Confirmed finasteride 5 mg tablet 5 mg PO DAILY 05/12/21 12/16/23 metformin 1,000 mg tablet 1,000 mg PO BIDWMEAL Diabetes 05/12/21 12/16/23 donepezil 10 mg tablet 10 mg PO HS MEMORY 03/26/22 12/16/23 tamsulosin 0.4 mg capsule 0.4 mg PO HS PROSTATE 03/26/22 12/16/23 rivaroxaban 20 mg tablet 20 mg PO HS 04/27/22 12/16/23 esomeprazole magnesium 40 mg 40 mg PO DAILY 12/05/22 12/16/23 capsule,delayed release insulin degludec 100 unit/mL (3 20 unit SQ DAILY Diabetes 12/05/22 12/16/23 mL) subcutaneous pen (Tresiba FlexTouch U-100 insulin) midodrine 5 mg tablet 10 mg PO TID low blood pressure 12/05/22 12/16/23 citalopram 20 mg tablet 20 mg PO DAILY 11/27/23 12/16/23 ferrous sulfate 325 mg (65 mg 325 mg PO DAILY 11/27/23 12/16/23 iron) tablet (FeroSul) Previous Rx's Medication Instructions Recorded alprazolam 0.5 mg tablet 0.5 mg PO BIDP PRN Anxiety 10 days 11/29/23 #20 tabs docusate sodium 100 mg capsule 100 mg PO DAILY 30 days #30 caps 11/29/23 gabapentin 800 mg tablet 800 mg PO BID 10 days #20 tabs 11/29/23 hydrocodone 10 mg-acetaminophen 1 tab PO QIDP PRN Moderate Pain 11/29/23 325 mg tablet (Scale Score 5-6) 10 days #40 tabs magnesium oxide 400 mg (241.3 mg 400 mg PO BID 30 days #60 tabs 11/29/23 magnesium) tablet metoprolol succinate 25 mg 12.5 mg (1/2 x 25 mg) PO BID 30 11/29/23 tablet,extended release 24 hr days #30 tabs Allergies Allergy/AdvReac Type Severity Reaction Status Date / Time No Known Allergies Allergy Verified 12/16/23 11:05 [facility] Disclaimer: The information contained in this section may have been updated after the patient was seen, as this information can be updated by other users. Medical History Abscess of lung Acute diverticulitis Arthritis Diabetes Afib Hypotension Abnormal electrocardiography Dyspnea Family History Other Family history of cancer Social History Smoking Status: Former smoker alcohol intake: never substance use type: denies use current occupational status: disabled Travel in the last 8 weeks: Inside the [place] household members: spouse and children housing: house ROS Obtained: Yes All systems reviewed & no additional complaints except as documented Physical Exam General General appearance: alert and in no apparent distress Head Head exam: atraumatic and normocephalic Eye Eye exam: Present normal appearance, PERRL and EOMI ENT ENT exam: Present mucous membranes moist Neck Neck exam: Present normal inspection, full ROM and trachea midline Respiratory Respiratory exam: Absent respiratory distress, wheezes, stridor, accessory muscle use or prolonged expiratory phase Cardiovascular Cardiovascular exam: Present normal rhythm Abdominal Exam Abdominal exam: Present soft; Absent distention, tenderness, guarding, rebound or rigidity Extremities Exam Extremities exam: Absent edema Neurological Exam Neurological exam: Present alert, oriented X3, CN II-XII intact and normal gait; Absent motor sensory deficit Skin Skin exam: Present warm and dry; Absent diaphoresis or erythema Medical Decision Making Medical Records Medical records reviewed: Yes I reviewed the patient's medical records. Antonio Inquiry Pt receiving controlled substance: No Antonio was queried for this patient: No Vital Signs: 12/18/23 15:37 12/18/23 16:18 Temperature 99.3 F Temperature Source Oral Pulse Rate 87 Pulse Rate [Right Radial] 83 Respiratory Rate 24 18 Blood Pressure 102/59 L Blood Pressure [Right Arm] 145/86 H Blood Pressure Mean 73 Blood Pressure Mean [Right Arm] 105 02 Sat by Pulse Oximetry 81 L 96 Oxygen Delivery Method Room Air Oxygen Flow Rate (LPM) 4 Lab Data Lab Results 12/18/23 16:05: WBC 6.2, RBC 4.38 L, Hgb 13.4 L, Hct 43.1, MCV 98.4 H, MCH 30.7, MCHC 31.2 L, RDW 14.1, Plt Count 246, MPV 7.4, Neut % (Auto) 68.4, Lymph % (Auto) 23.3, [place] % (Auto) 5.3, Eos % (Auto) 2.2, Baso % (Auto) 0.8, Neut # (Auto) 4.3, Lymph # (Auto) 1.5, [place] # (Auto) 0.3, Eos # (Auto) 0.1, Baso # (Auto) 0.1, Sodium 139, Potassium 4.4, Chloride 100, Carbon Dioxide 36 H, Anion Gap 7.4, BUN 20, Creatinine 1.10, Estimated Creat Clear 73, Estimated GFR 64, Est GFR ( Amer) 77, Glucose 91, Calcium 9.1, Magnesium 1.4 L, Total Bilirubin 0.7, AST 26, ALT 14, Alkaline Phosphatase 117, Total Protein 6.1 L, Albumin 3.5, Globulin 2.6, Albumin/Globulin Ratio 1.3, Lipase 65 12/18/23 16:11: VBG pH 7.33, VBG pCO2 61.3 H, VBG pO2 47.6 H, VBG HCO3 31.9 H, V BG Total CO2 33.8 H, VBG O2 Saturation 79.9 H, VBG Base Excess 6.0 H, VBG Lactic Acid 1.8 12/18/23 16:05 12/18/23 16:05 Orders (Tests/Meds): ED MEDICATIONS Generic Name Dose Route Start Last Admin Trade Name Freq PRN Reason Stop Dose Admin Ceftriaxone Sodium 2 gm/ 100 mls @ 200 mls/hr 12/18/23 16:44 12/18/23 16:58 Sodium Chloride IV 12/18/23 17:13 200 mls/hr ONCE ONE Administration Azithromycin 500 mg/ Sodium 250 mls @ 250 mls/hr 12/18/23 16:44 Chloride IV 12/18/23 16:45 ONCE ONE Discontinued Medications Generic Name Dose Route Start Last Admin Trade Name Freq PRN Reason Stop Dose Admin Ondansetron HCl 4 mg 12/18/23 15:43 12/18/23 16:28 Ondansetron 4mg/2ml Vial IV 12/18/23 15:44 4 mg ONCE ONE Administration ORDERS Category Date Time Status XR chest portable Stat Exams 12/18/23 15:47 Taken CBC w/Auto Diff [Complete Blood Count Auto Diff] Stat Lab 12/18/23 16:05 Completed CMP [Comprehensive Metabolic Panel] Stat Lab 12/18/23 16:05 Completed Lipase Stat Lab 12/18/23 16:05 Completed Magnesium Stat Lab 12/18/23 16:05 Completed NT Pro Brain Natriuretic Pep. Stat Lab 12/18/23 16:05 Received UA [Urinalysis and Microscopic] Stat Lab 12/18/23 15:43 Ordered Blood Culture Stat Micro 12/18/23 16:40 Received VBG [Venous Blood Gas] Stat RT 12/18/23 16:11 Completed Medical Decision Narrative: 83-year-old male history of hypertension, hyperlipidemia, type II diet Beatties, A-fib on Eliquis, COPD on as needed oxygen, dementia presenting with weakness, vomiting, cough. Patient has had a cough for the last 2 or 3 days. Is productive of brown sputum. Started vomiting over the last couple of days as well, nonbloody, nonbilious vomiting as well as multiple episodes of diarrhea. Feels generally weak at this point. Was brought in by family for further evaluation. Patient has no other complaints. History was obtained via conversation with patient, mostly family given dementia. On arrival, patient hemodynamically stable, alert, oriented x4, appropriate, GCS 14, moving all extremities spontaneously, pupils equal and reactive to light. Full physical exam performed and significant for tired, lethargic, pale. Opening eyes answer questions, GCS 14. Patient has isolated wheezes and rales on the right side, and needing 4 L to saturate greater than 95%. Cardiac exam within normal limits. Differential includes pneumonia, sepsis, bronchitis, CHF, dehydration, metabolic abnormality, among others. Patient was given D5 LR for symptomatic management and correction of underlying abnormalities. Workup independently interpreted and significant for nonactionable CBC or chemistry, VBG nonactionable, lactate negative. Chest x- ray with concern for right-sided middle and lower lobe pneumonia. See radiology read for full review of final results. On reevaluation, patient resting comfortably in bed without any acute complaints. Medicine was contacted and interactive question was had. Because patient high risk for clinical decompensation, deemed appropriate for inpatient admission. Results were relayed to patient who voiced understanding and patient was agreeable to inpatient admission and management. Patient was admitted to the hospital for further definitive management. Critical Care Critical Care Time Critical Care Time: Yes (resp) Attestation: On 12/18/23, the high probability of a clinically significant, sudden or life threatening deterioration of the following system(s) required my full and direct attention, intervention and personal management. The time I documented below is in addition to time spent performing reported procedures but includes the following listed in this critical care notation. Total Time Total Critical Care Time: 45
--- NOTE | 2023-12-18 16:14 | PC.NURSE ---
Called lab to have them collect second set of blood cx
[2023-12-18 16:16] LABS: Lactate Venous 1.8 mmol/L (0.4-2.0); VBG HCO3 31.9 mmol/L (23-30); VBG Oxygen Saturation 79.9 % (50-70); VBG PCO2 61.3 mmol/L (35-51); VBG PH 7.33 mmol/L (7.31-7.41); VBG PO2 47.6 mmol/L (28-40); VBG Total CO2 33.8 mmol/L (23-27)
[2023-12-18 16:18] VITALS: BP 102/59; PULSE 87; RESP 18; O2SAT 96
[2023-12-18 16:18] LABS: Basophils # 0.1 K/mm3 (0-0.2); Basophils % 0.8 % (0.1-2.0); Eosinophils # 0.1 K/mm3 (0.0-0.4); Eosinophils % 2.2 % (0.1-12.0); Hematocrit 43.1 % (42.0-52.0); Hemoglobin 13.4 g/dL (14.1-18.0); Lymphocytes # 1.5 K/mm3 (0.7-4.5); Lymphocytes % 23.3 % (10-50); Mean Corpuscular HGB Conc 31.2 g/dL (31.8-35.4); Mean Corpuscular Hemoglobin 30.7 pg (27.0-31.2); Mean Corpuscular Volume 98.4 fl (80-94); Mean Platelet Volume 7.4 fl (7.4-10.4); Monocytes # 0.3 K/mm3 (0.1-1.0); Monocytes % 5.3 % (1.7-9.3); Neutrophils # 4.3 K/mm3 (1.8-7.8); Neutrophils % 68.4 % (37.0-80.0); Platelet Count 246 K/mm3 (142-424); Red Blood Count 4.38 M/mm3 (4.60-6.20); Red Cell Distribution Width 14.1 % (11.5-17.5); White Blood Count 6.2 K/mm3 (4.8-10.8)
--- NOTE | 2023-12-18 16:19 | PC.NURSE ---
lab at to collect blood cx
[2023-12-18 16:22] LABS: Chloride 100 mmol/L (98-107); Potassium 4.4 mmoL/L (3.5-5.1); Sodium 139 mmol/L (136-145)
[2023-12-18 16:25] LABS: Alanine Aminotransferase 14 U/L (12-78); Albumin Level 3.5 g/dl (3.5-5.0); Albumin/Globulin Ratio 1.3 (1.1-1.8); Alkaline Phosphatase 117 U/L (38-126); Anion Gap 7.4 mEq/L (5-15); Aspartate Amino Transferase 26 U/L (17-59); Bilirubin,Total 0.7 mg/dl (0.2-1.3); Blood Urea Nitrogen 20 mg/dl (9-20); Calcium 9.1 mg/dl (8.4-10.2); Carbon Dioxide 36 mmol/L (22.0-30.0); Creatinine Clearance Estimated 73 mL/min (50-200); Estimated Glomerular Filt Rate 64 ml/min (>60); GFR (African American) 77 ML/MIN (>60); Globulin 2.6 g/dL (1.3-3.2); Glucose 91 mg/dl (74-100); Lipase 65 U/L (23-300); Total Protein,Serum 6.1 g/dl (6.3-8.2)
[2023-12-18 16:26] LABS: Magnesium 1.4 mg/dl (1.6-2.3)
[2023-12-18] MEDS: ONDANSETRON 4MG/2ML VIAL 4 MG IV (16:28)
[2023-12-18 16:38] LABS: NT Pro Brain Natriuretic Pep. 1340 pg/mL (0-450)
--- NOTE | 2023-12-18 16:50 | PC.NURSE ---
DR FARR SPEAKING WITH DR GREER FOR ADMISSION
--- NOTE | 2023-12-18 16:55 | PC.NURSE ---
SENIOR INTERACTIVE PRODUCER NOTIFIED OF ADMISSION
[2023-12-18] MEDS: CEFTRIAXONE SODIUM 2 GM in 0.9 % SODIUM CHLORIDE 100 ML IV (16:58)
[2023-12-18 17:00] VITALS: BP 122/57; PULSE 86; RESP 18; O2SAT 95
--- NOTE | 2023-12-18 17:07 | PC.NURSE ---
REPORT GIVEN TO DEIDRE YEE
--- NOTE | 2023-12-18 17:14 | P.HP_ITS ---
History of Present Illness *Admission Date: 12/18/23 *Reason for visit:: acute hypoxia *History of present illness: Patient is a 83-year-old male with past medical history of diabetes mellitus atrial fibrillation who presents to the hospital due to concern for nausea vomiting diarrhea. Patient lives at [facility]. Patient reportedly has history of dementia, patient is very poor historian, patient was noted to be hypoxic in the emergency department patient has been having cough for 2 to 3 days which is productive of phlegm generalized weakness, patient was brought to the hospital by the family. On further evaluation on chest x-ray patient was noted to have concern for pneumonia. [facility] Disclaimer: The information contained in this section may have been updated after the patient was seen, as this information can be updated by other users. Medical History Abscess of lung Acute diverticulitis Arthritis Diabetes Afib Hypotension Abnormal electrocardiography Dyspnea Family History Other Family history of cancer Social History (Updated 12/18/23 @ 17:57 by Roxanne Garzon RN) Smoking Status: Former smoker alcohol intake: never substance use type: denies use current occupational status: disabled Travel in the last 8 weeks: Inside the [place] household members: spouse and children housing: house Review of Systems Review of Systems Review of systems:: pertinent systems reviewed and negative unless documented below Meds Home Medications and Allergies Home Medications Medication Instructions Recorded Confirmed Type finasteride 5 mg tablet 5 mg PO DAILY 05/12/21 12/16/23 History metformin 1,000 mg tablet 1,000 mg PO BIDWMEAL Diabetes 05/12/21 12/16/23 History donepezil 10 mg tablet 10 mg PO HS MEMORY 03/26/22 12/16/23 History tamsulosin 0.4 mg capsule 0.4 mg PO HS PROSTATE 03/26/22 12/16/23 History rivaroxaban 20 mg tablet 20 mg PO HS 04/27/22 12/16/23 History esomeprazole magnesium 40 mg 40 mg PO DAILY 12/05/22 12/16/23 History capsule,delayed release insulin degludec 100 unit/mL (3 20 unit SQ DAILY Diabetes 12/05/22 12/16/23 History mL) subcutaneous pen (Tresiba FlexTouch U-100 insulin) midodrine 5 mg tablet 10 mg PO TID low blood pressure 12/05/22 12/16/23 History citalopram 20 mg tablet 20 mg PO DAILY 11/27/23 12/16/23 History ferrous sulfate 325 mg (65 mg 325 mg PO DAILY 11/27/23 12/16/23 History iron) tablet (FeroSul) alprazolam 0.5 mg tablet 0.5 mg PO BIDP PRN Anxiety 10 days 11/29/23 12/16/23 Rx #20 tabs docusate sodium 100 mg capsule 100 mg PO DAILY 30 days #30 caps 11/29/23 12/16/23 Rx gabapentin 800 mg tablet 800 mg PO BID 10 days #20 tabs 11/29/23 12/16/23 Rx hydrocodone 10 mg-acetaminophen 1 tab PO QIDP PRN Moderate Pain 11/29/23 12/16/23 Rx 325 mg tablet (Scale Score 5-6) 10 days #40 tabs magnesium oxide 400 mg (241.3 mg 400 mg PO BID 30 days #60 tabs 11/29/23 12/16/23 Rx magnesium) tablet metoprolol succinate 25 mg 12.5 mg (1/2 x 25 mg) PO BID 30 11/29/23 12/16/23 Rx tablet,extended release 24 hr days #30 tabs New Prescriptions to Start Prescriptions: Allergies Allergy/AdvReac Type Severity Reaction Status Date / Time No Known Allergies Allergy Verified 12/16/23 11:05 Exam Data for Last 24 hours Vital signs and Labs for Last 24 Hours: Temp Pulse Resp BP Pulse Ox O2 Del Method O2 Flow Rate 99.3 F 86 18 122/57 L 95 Room Air 4 12/18/23 15:37 12/18/23 17:00 12/18/23 17:00 12/18/23 17:00 12/18/23 17:00 12/18/23 15:37 12/18/23 15:37 Laboratory Results - last 24 hr 12/18/23 16:05: WBC 6.2, RBC 4.38 L, Hgb 13.4 L, Hct 43.1, MCV 98.4 H, MCH 30.7, MCHC 31.2 L, RDW 14.1, Plt Count 246, MPV 7.4, Neut % (Auto) 68.4, Lymph % (Auto) 23.3, [place] % (Auto) 5.3, Eos % (Auto) 2.2, Baso % (Auto) 0.8, Neut # (Auto) 4.3, Lymph # (Auto) 1.5, [place] # (Auto) 0.3, Eos # (Auto) 0.1, Baso # (Auto) 0.1, Sodium 139, Potassium 4.4, Chloride 100, Carbon Dioxide 36 H, Anion Gap 7.4, BUN 20, Creatinine 1.10, Estimated Creat Clear 73, Estimated GFR 64, Est GFR ( Amer) 77, Glucose 91, Calcium 9.1, Magnesium 1.4 L, Total Bilirubin 0.7, AST 26, ALT 14, Alkaline Phosphatase 117, NT-Pro-B Natriuret Pep 1340 H, Total Protein 6.1 L, Albumin 3.5, Globulin 2.6, Albumin/Globulin Ratio 1.3, Lipase 65 12/18/23 16:11: VBG pH 7.33, VBG pCO2 61.3 H, VBG pO2 47.6 H, VBG HCO3 31.9 H, VBG Total CO2 33.8 H, VBG O2 Saturation 79.9 H, VBG Base Excess 6.0 H, VBG Lactic Acid 1.8 I & O for Last 24 hours: Intake & Output 12/15/23 12/16/23 12/17/23 12/18/23 23:59 23:59 23:59 23:59 Weight 103.419 kg Constitutional Constitutional: no acute distress *Routine HEENT Exam Head: Present normocephalic Eye: Present EOMI and PERRL ENT: Present mucous membranes moist *Routine Neck Exam Neck: Present supple; Absent lymphadenopathy *Routine Respiratory Exam Respiratory: Present CTA bilaterally *Routine Cardiovascular Exam Cardiovascular: Present RRR *Routine Abdominal Exam Abdominal: Present soft and normoactive bowel sounds; Absent tenderness *Routine Rectal Exam Rectal:: deferred *Routine Genitalia Exam Genitalia:: deferred *Routine Extremities Exam Extremities: Absent cyanosis, clubbing or edema *Routine Skin Exam Skin: Present warm; Absent rash *Routine Neurological Exam Neurological: Present alert and oriented X3 Assessment and Plan *Assessment and plan (1) Hypoglycemia: Status: Acute Category: Medical Code(s): E16.2 - Hypoglycemia, unspecified (2) Acute hypoxemic respiratory failure: Status: Acute Category: Medical Code(s): J96.01 - Acute respiratory failure with hypoxia (3) Pneumonia: Status: Acute Category: Medical Code(s): J18.9 - Pneumonia, unspecified organism (4) T2DM (type 2 diabetes mellitus): Status: Acute Qualifiers: Diabetes mellitus cycle repairer insulin use: with cycle repairer use Diabetes mellitus complication status: without complication Qualified Code(s): E11.9 - Type 2 diabetes mellitus without complications; Z79.4 - correction (current) use of insulin Category: Medical Code(s): E11.9 - Type 2 diabetes mellitus without complications Plan Patient is a 83-year-old male with past medical history of diabetes mellitus atrial fibrillation who presents to the hospital due to concern for nausea vomiting diarrhea. Patient lives at [facility]. Patient reportedly has history of dementia, patient is very poor historian, patient was noted to be hypoxic in the emergency department patient has been having cough for 2 to 3 days which is productive of phlegm generalized weakness, patient was brought to the hospital by the family. On further evaluation on chest x-ray patient was noted to have concern for pneumonia. Assessment and plan Acute hypoxic respiratory failure Concern for pneumonia DuoNebs as needed Check PCT Continue oxygen support, currently requiring 2 L nasal cannula Patient did receive azithromycin and Rocephin in the emergency department, will continue empirical antibiotics with levofloxacin Nausea vomiting diarrhea As needed Zofran Monitor for signs of dehydration Encourage oral hydration, food and drink Diabetes mellitus Hypoglycemia Insulin sliding scale with hypoglycemia precautions Atrial fibrillation Resume home Xarelto, metoprolol DVT prophylaxis -On Xarelto
[2023-12-18 17:15] VITALS: BP 122/57; PULSE 86; RESP 18; TEMP 36.7; O2SAT 95
[2023-12-18] MEDS: LEVOFLOXACIN/D5W 500 MG/100 ML PIGGYBACK 100 MG IV (17:37)
[2023-12-18 17:42] VITALS: BP 118/63; PULSE 94; RESP 18; TEMP 36.8; O2SAT 97; BMI 31.8
[2023-12-18 17:58] LABS: Procalcitonin 0.054 ng/mL (0.0-2.0)
--- NOTE | 2023-12-18 18:00 | CT_ITS ---
PROCEDURE INFORMATION: Exam: CT Abdomen And Pelvis Without Contrast Exam date and time: 12/18/2023 6:26 PM Age: 83 years old Clinical indication: Abdominal pain; Additional info: Abd pain TECHNIQUE: Imaging protocol: Computed tomography of the abdomen and pelvis without contrast. Radiation optimization: All CT scans at this facility use at least one of these dose optimization techniques: automated exposure control; mA and/or kV adjustment per patient size (includes targeted exams where dose is matched to clinical indication); or iterative reconstruction. COMPARISON: CT ANGIO ABDOMEN PELVIS 11/26/2023 7:00 PM FINDINGS: Diaphragm: Small hiatal hernia. Liver: Normal. No mass. Gallbladder and bile ducts: Normal. No calcified stones. No ductal dilation. Pancreas: Normal. No ductal dilation. Spleen: Normal. No splenomegaly. Adrenal glands: Normal. No mass. Kidneys and ureters: Multiple simple bilateral renal cysts measuring up to 7.5 cm. Stomach and bowel: Considerable volume of stool seen within the colon. Colonic diverticulosis. Appendix: No evidence of appendicitis. Intraperitoneal space: Unremarkable. No free air. No significant fluid collection. Vasculature: Moderate atherosclerotic changes are seen within the abdominal aorta and branch vasculature without evidence of aneurysm. Lymph nodes: Unremarkable. No enlarged lymph nodes. Urinary bladder: Unremarkable as visualized. Reproductive: Unremarkable as visualized. Bones/joints: No acute fracture. ORIF hardware in the proximal left femur. Multilevel thoracolumbar degenerative disc disease. Soft tissues: Unremarkable. IMPRESSION: 1. Diverticulosis. 2. Simple bilateral renal cysts. No follow-up imaging is recommended. 3. Constipation. 4. Incidental/nonacute findings as described. COMMENTS: Consistent with the [employer]'s Incidental Findings Committee white paper (J Am Jacobo Radiol 2018): Any incidental renal lesion less than 1 cm or classified as too small to characterize, or any incidental cystic renal lesion characterized as simple-appearing, is likely benign. No follow-up imaging is recommended for these lesions per consensus recommendations based on imaging criteria.
--- NOTE | 2023-12-18 18:00 | CT_ITS ---
PROCEDURE INFORMATION: Exam: CT Chest Without Contrast; Diagnostic Exam date and time: 12/18/2023 6:24 PM Age: 83 years old Clinical indication: Shortness of breath; Additional info: Pna TECHNIQUE: Imaging protocol: Diagnostic computed tomography of the chest without contrast. Radiation optimization: All CT scans at this facility use at least one of these dose optimization techniques: automated exposure control; mA and/or kV adjustment per patient size (includes targeted exams where dose is matched to clinical indication); or iterative reconstruction. COMPARISON: CT ANGIO CHEST 11/26/2023 7:00 PM FINDINGS: Lungs: Mild bibasilar atelectasis. No acute airspace process. Pleural spaces: Chronic thickening of the right minor fissure. No pleural fluid or pneumothorax. Heart: Unremarkable. No cardiomegaly. No pericardial effusion. Coronary arteries: Moderate coronary artery calcification. Lymph nodes: Unremarkable. No enlarged lymph nodes. Vasculature: Mild atherosclerotic changes are seen within the thoracic aorta without evidence of aneurysm. Bones/joints: Multiple old left-sided rib fractures. Soft tissues: Unremarkable. IMPRESSION: 1. Mild bibasilar atelectasis. 2. No acute airspace process.
--- NOTE | 2023-12-18 18:14 | PC.NURSE ---
pt states last bm was 12/16
[2023-12-18] MEDS: AZITHROMYCIN 500 MG in 0.9 % SODIUM CHLORIDE 250 ML 250 MG IV (18:58)
[2023-12-18 19:49] LABS: Microscopic, Urine URINE MICROSCOPIC (MICROSCOPIC)
[2023-12-18 19:52] LABS: Appearance,Urine CLEAR (Clear); Bilirubin,Urine Negative (Negative); Blood, Urine Negative (Negative); Color,Urine YELLOW (Yellow); Glucose,Urine (UA) Negative (Negative); Ketones,Urine Negative (Negative); Leukocyte Esterase,Urine Negative (Negative); Nitrate,Urine Negative (Negative); Protein,Urine Negative (Negative)
[2023-12-18 20:00] VITALS: BP 108/65; PULSE 94; RESP 18; TEMP 36.6; O2SAT 96
[2023-12-18 20:13] LABS: RBC,Urine Occasional #/hpf (0-3); Squamous Epithelial Cell,Urine Occasional #/hpf (0-5)
[2023-12-18] MEDS: GABAPENTIN 800MG TABLET 800 MG PO (20:58)
[2023-12-18] MEDS: MIDODRINE HCL 5 MG TABLET 10 MG PO (20:58)
[2023-12-18] MEDS: TAMSULOSIN 0.4MG CAPSULE 0.400000000000000022 MG PO (20:59)
[2023-12-18] MEDS: METOPROLOL SUCCINATE XL 25MG TABLET 12.5 MG PO (20:59)
[2023-12-18] MEDS: PANTOPRAZOLE 40MG TABLET 40 MG PO (20:59)
[2023-12-18] MEDS: DONEPEZIL 10MG TAB 10 MG PO (21:00)
[2023-12-18] MEDS: RIVAROXABAN 20 MG 20 EACH PO (21:00)
[2023-12-18] MEDS: ALPRAZolam 0.5MG TABLET 0.5 MG PO (21:06)
[2023-12-18] MEDS: HYDROCODONE 10MG/APAP 325MG TAB 1 TAB PO (21:06)
[2023-12-19] VITALS: BP 109/53; PULSE 75; RESP 20; TEMP 36.6; O2SAT 96
[2023-12-19 04:00] VITALS: BP 107/55; PULSE 69; RESP 20; TEMP 36.4; O2SAT 91; BMI 32.6
--- NOTE | 2023-12-19 05:10 | PC.NURSE ---
Pt has only been alert to self and time throughout the shift, states he does and this is baseline, easily reoriented. Pt has complained of pain and anxiety, treated per mar. Pt has rested throughout the night. Post left femur fracture, steri strips in place. 3L NC, O2 sat >90%. Lung sounds clear. Pt uses urinal. Bed alarm on. Call light in reach.
--- NOTE | 2023-12-19 06:35 | PC.NURSE ---
Rechecked blood sugar at this time, 92
[2023-12-19 06:41] LABS: POC Glucose,Bedside 92 (70-110)
[2023-12-19 07:02] LABS: Basophils % 0.7 % (0.1-2.0); Eosinophils # 0.2 K/mm3 (0.0-0.4); Eosinophils % 3.1 % (0.1-12.0); Hematocrit 37.9 % (42.0-52.0); Hemoglobin 12.1 g/dL (14.1-18.0); Lymphocytes # 2.4 K/mm3 (0.7-4.5); Lymphocytes % 40.3 % (10-50); Mean Corpuscular HGB Conc 31.9 g/dL (31.8-35.4); Mean Corpuscular Hemoglobin 31.4 pg (27.0-31.2); Mean Corpuscular Volume 98.3 fl (80-94); Mean Platelet Volume 7.9 fl (7.4-10.4); Monocytes # 0.3 K/mm3 (0.1-1.0); Monocytes % 5.2 % (1.7-9.3); Neutrophils % 50.7 % (37.0-80.0); Platelet Count 224 K/mm3 (142-424); Red Blood Count 3.86 M/mm3 (4.60-6.20); Red Cell Distribution Width 14.1 % (11.5-17.5); White Blood Count 5.9 K/mm3 (4.8-10.8)
[2023-12-19 07:09] LABS: Anion Gap 7.4 mEq/L (5-15); Blood Urea Nitrogen 20 mg/dl (9-20); Calcium 8.7 mg/dl (8.4-10.2); Carbon Dioxide 38 mmol/L (22.0-30.0); Chloride 94 mmol/L (98-107); Creatinine Clearance Estimated 82 mL/min (50-200); Estimated Glomerular Filt Rate 71 ml/min (>60); GFR (African American) 86 ML/MIN (>60); Glucose 97 mg/dl (74-100); Potassium 4.4 mmoL/L (3.5-5.1); Sodium 135 mmol/L (136-145)
[2023-12-19 08:00] VITALS: BP 111/63; PULSE 70; RESP 17; TEMP 36.7; O2SAT 96
[2023-12-19] MEDS: GABAPENTIN 800MG TABLET 800 MG PO (09:13)
[2023-12-19] MEDS: METOPROLOL SUCCINATE XL 25MG TABLET 12.5 MG PO (09:13)
[2023-12-19] MEDS: MIDODRINE HCL 5 MG TABLET 10 MG PO ×2 (09:13→12:08)
[2023-12-19] MEDS: CITALOPRAM 20MG TABLET 20 MG PO (09:13)
[2023-12-19] MEDS: FINASTERIDE 5MG TABLET 5 MG PO (09:13)
--- NOTE | 2023-12-19 09:55 | HMH.PHAINT1 ---
Pharmacy Intervention Comments: MEDICATION RECONCILIATION COMPLETED ON PATIENT USING EXTERNAL FILL HISTORY FROM PHARMACY, DIALLO REPORT, AND DISCHARGE SUMMARY FROM PREVIOUS ADMISSION. -TONO INIGUEZD
[2023-12-19 11:00] VITALS: PULSE 72
[2023-12-19] MEDS: SODIUM CHLORIDE 3% 15ML NEB 3 ML IH (11:00)
[2023-12-19 12:00] VITALS: BP 118/70; PULSE 74; RESP 16; TEMP 36.7; O2SAT 95
[2023-12-19 12:12] LABS: POC Glucose,Bedside 102 (70-110)
[2023-12-19] MEDS: HYDROCODONE 10MG/APAP 325MG TAB 1 TAB PO (13:59)
[2023-12-19] MEDS: ALPRAZolam 0.5MG TABLET 0.5 MG PO (14:04)
[2023-12-19] MEDS: LEVOFLOXACIN/D5W 750 MG/150 ML 750 MG/150 ML PIGGYBACK 100 MG IV (14:20)
--- NOTE | 2023-12-19 14:28 | P.DS_ITS ---
General Admission date:: 12/18/23 Discharge date: 12/19/23 HPI HPI HPI: Patient is a 83-year-old male with past medical history of diabetes mellitus atrial fibrillation who presents to the hospital due to concern for nausea vomiting diarrhea. Patient lives at care home facility. Patient reportedly has history of dementia, patient is very poor historian, patient was noted to be hypoxic in the emergency department patient has been having cough for 2 to 3 days which is productive of phlegm generalized weakness, patient was brought to the hospital by the family. On further evaluation on chest x-ray patient was noted to have concern for pneumonia. Hospital Course Hospital Course Hospital Course: Patient is a 83-year-old male with past medical history of diabetes mellitus atrial fibrillation who presents to the hospital due to concern for nausea vomiting diarrhea. Patient lives at care home facility. Patient reportedly has history of dementia, patient is very poor historian, patient was noted to be hypoxic in the emergency department patient has been having cough for 2 to 3 days which is productive of phlegm generalized weakness, patient was brought to the hospital by the family. On further evaluation on chest x-ray patient was noted to have concern for pneumonia. Assessment and plan Acute hypoxic respiratory failure Concern for pneumonia DC on levofloxacin, CT abd pelvis does show constipation, CT chest negative for consolidation but does show bibasilar atelectasis Patient is stable for discharge Patient was seen and evaluated at the bedside on the day of discharge. Patient wishes to be discharged. All patient questions were answered and patient was given time to ask questions. Patient was discharged in stable condition. Patient understands that she can return to ER in case of any sudden changes in health. Total time spent on DC - 38 mins Exam Data for Last 24 hours Vital signs and Labs for Last 24 Hours: Temp Pulse Resp BP Pulse Ox O2 Del Method O2 Flow Rate 98.1 F 74 16 118/70 95 Room Air 2 12/19/23 12:00 12/19/23 12:00 12/19/23 12:00 12/19/23 12:00 12/19/23 12:00 12/19/23 12:00 12/19/23 09:00 Laboratory Results - last 24 hr 12/18/23 16:05: WBC 6.2, RBC 4.38 L, Hgb 13.4 L, Hct 43.1, MCV 98.4 H, MCH 30.7, MCHC 31.2 L, RDW 14.1, Plt Count 246, MPV 7.4, Neut % (Auto) 68.4, Lymph % (Auto) 23.3, [place] % (Auto) 5.3, Eos % (Auto) 2.2, Baso % (Auto) 0.8, Neut # (Auto) 4.3, Lymph # (Auto) 1.5, [place] # (Auto) 0.3, Eos # (Auto) 0.1, Baso # (Auto) 0.1, Sodium 139, Potassium 4.4, Chloride 100, Carbon Dioxide 36 H, Anion Gap 7.4, BUN 20, Creatinine 1.10, Estimated Creat Clear 73, Estimated GFR 64, Est GFR ( Amer) 77, Glucose 91, Calcium 9.1, Magnesium 1.4 L, Total Bilirubin 0.7, AST 26, ALT 14, Alkaline Phosphatase 117, NT-Pro-B Natriuret Pep 1340 H, Total Protein 6.1 L, Albumin 3.5, Globulin 2.6, Albumin/Globulin Ratio 1.3, Lipase 65, Procalcitonin 0.054 12/18/23 16:11: VBG pH 7.33, VBG pCO2 61.3 H, VBG pO2 47.6 H, VBG HCO3 31.9 H, VBG Total CO2 33.8 H, VBG O2 Saturation 79.9 H, VBG Base Excess 6.0 H, VBG Lactic Acid 1.8 12/18/23 : Urine Color Yellow, Urine Appearance Clear, Urine pH 7.0, Ur Specific [place] 1.020, Urine Protein Negative, Urine Glucose (UA) Negative, Urine Ketones Negative, Urine Blood Negative, Urine Nitrate Negative, Urine Bilirubin Negative, Urine Urobilinogen 4.0, Ur Leukocyte Esterase Negative, Urine RBC Occasional, Urine WBC None, Ur Squamous Epith Cells Occasional, Urine Bacteria None 12/19/23 06:24: WBC 5.9, RBC 3.86 L, Hgb 12.1 L, Hct 37.9 L, MCV 98.3 H, MCH 31.4 H, MCHC 31.9, RDW 14.1, Plt Count 224, MPV 7.9, Neut % (Auto) 50.7, Lymph % (Auto) 40.3, [place] % (Auto) 5.2, Eos % (Auto) 3.1, Baso % (Auto) 0.7, Neut # (Auto) 3.0, Lymph # (Auto) 2.4, [place] # (Auto) 0.3, Eos # (Auto) 0.2, Baso # (Auto) 0.0, Sodium 135 L, Potassium 4.4, Chloride 94 L, Carbon Dioxide 38 H, Anion Gap 7.4, BUN 20, Creatinine 1.00, Estimated Creat Clear 82, Estimated GFR 71, Est GFR ( Amer) 86, Glucose 97, Calcium 8.7 12/19/23 06:35: POC Glucose 92 12/19/23 12:04: POC Glucose 102 I & O for Last 24 hours: Intake & Output 12/16/23 12/17/23 12/18/23 12/19/23 23:59 23:59 23:59 23:59 Intake Total 760 / 760 Output Total 250 / 250 1000 / 1000 Balance -250 / 240 -240 / -240 Weight 103.419 kg 105.868 kg Constitutional Constitutional: no acute distress *Routine HEENT Exam Head: Present normocephalic Eye: Present EOMI and PERRL ENT: Present mucous membranes moist *Routine Neck Exam Neck: Present supple; Absent lymphadenopathy *Routine Respiratory Exam Respiratory: Present CTA bilaterally *Routine Cardiovascular Exam Cardiovascular: Present RRR *Routine Abdominal Exam Abdominal: Present soft and normoactive bowel sounds; Absent tenderness *Routine Extremities Exam Extremities: Absent cyanosis, clubbing or edema *Routine Skin Exam Skin: Present warm; Absent rash *Routine Neurological Exam Neurological: Present alert and oriented X3 Results Data Completed and Pending Labs on day of discharge: Labs from last 24 hours 12/19/23 12/19/23 12/19/23 12:04 06:35 06:24 WBC 5.9 RBC 3.86 L Hgb 12.1 L Hct 37.9 L MCV 98.3 H MCH 31.4 H MCHC 31.9 RDW 14.1 Plt Count 224 MPV 7.9 Neut % (Auto) 50.7 Lymph % (Auto) 40.3 [place] % (Auto) 5.2 Eos % (Auto) 3.1 Baso % (Auto) 0.7 Neut # (Auto) 3.0 Lymph # (Auto) 2.4 [place] # (Auto) 0.3 Eos # (Auto) 0.2 Baso # (Auto) 0.0 VBG pH VBG pCO2 VBG pO2 VBG HCO3 VBG Total CO2 VBG O2 Saturation VBG Base Excess VBG Lactic Acid Sodium 135 L Potassium 4.4 Chloride 94 L Carbon Dioxide 38 H Anion Gap 7.4 BUN 20 Creatinine 1.00 Estimated Creat Clear 82 Estimated GFR 71 Est GFR ( Amer) 86 Glucose 97 POC Glucose 102 92 Calcium 8.7 Magnesium Total Bilirubin AST ALT Alkaline Phosphatase NT-Pro-B Natriuret Pep Total Protein Albumin Globulin Albumin/Globulin Ratio Lipase Procalcitonin Urine Color Urine Appearance Urine pH Ur Specific [place] Urine Protein Urine Glucose (UA) Urine Ketones Urine Blood Urine Nitrate Urine Bilirubin Urine Urobilinogen Ur Leukocyte Esterase Urine RBC Urine WBC Ur Squamous Epith Cells Urine Bacteria 12/18/23 12/18/23 12/18/23 Unknown 16:11 16:05 WBC 6.2 RBC 4.38 L Hgb 13.4 L Hct 43.1 MCV 98.4 H MCH 30.7 MCHC 31.2 L RDW 14.1 Plt Count 246 MPV 7.4 Neut % (Auto) 68.4 Lymph % (Auto) 23.3 [place] % (Auto) 5.3 Eos % (Auto) 2.2 Baso % (Auto) 0.8 Neut # (Auto) 4.3 Lymph # (Auto) 1.5 [place] # (Auto) 0.3 Eos # (Auto) 0.1 Baso # (Auto) 0.1 VBG pH 7.33 VBG pCO2 61.3 H VBG pO2 47.6 H VBG HCO3 31.9 H VBG Total CO2 33.8 H VBG O2 Saturation 79.9 H VBG Base Excess 6.0 H VBG Lactic Acid 1.8 Sodium 139 Potassium 4.4 Chloride 100 Carbon Dioxide 36 H Anion Gap 7.4 BUN 20 Creatinine 1.10 Estimated Creat Clear 73 Estimated GFR 64 Est GFR ( Amer) 77 Glucose 91 POC Glucose Calcium 9.1 Magnesium 1.4 L Total Bilirubin 0.7 AST 26 ALT 14 Alkaline Phosphatase 117 NT-Pro-B Natriuret Pep 1340 H Total Protein 6.1 L Albumin 3.5 Globulin 2.6 Albumin/Globulin Ratio 1.3 Lipase 65 Procalcitonin 0.054 Urine Color Yellow Urine Appearance Clear Urine pH 7.0 Ur Specific [place] 1.020 Urine Protein Negative Urine Glucose (UA) Negative Urine Ketones Negative Urine Blood Negative Urine Nitrate Negative Urine Bilirubin Negative Urine Urobilinogen 4.0 Ur Leukocyte Esterase Negative Urine RBC Occasional Urine WBC None Ur Squamous Epith Cells Occasional Urine Bacteria None DS: Diagnosis Discharge Diagnosis (1) Hypoglycemia: Status: Acute Code(s): E16.2 - Hypoglycemia, unspecified (2) Acute hypoxemic respiratory failure: Status: Acute Code(s): J96.01 - Acute respiratory failure with hypoxia (3) Pneumonia: Status: Acute Code(s): J18.9 - Pneumonia, unspecified organism (4) T2DM (type 2 diabetes mellitus): Status: Acute Code(s): E11.9 - Type 2 diabetes mellitus without complications Qualifiers: Diabetes mellitus care home insulin use: with terminal clerk use Diabetes mellitus complication status: without complication Qualified Code(s): E11.9 - Type 2 diabetes mellitus without complications; Z79.4 - [facility] (current) use of insulin Meds Home Medications and Allergies Home Medications Medication Instructions Recorded Confirmed Type finasteride 5 mg tablet 5 mg PO DAILY 05/12/21 12/18/23 History metformin 1,000 mg tablet 1,000 mg PO BIDWMEAL 05/12/21 12/18/23 History donepezil 10 mg tablet 10 mg PO HS 03/26/22 12/18/23 History tamsulosin 0.4 mg capsule 0.4 mg PO HS 03/26/22 12/18/23 History rivaroxaban 20 mg tablet 20 mg PO QPMWITHMEAL 04/27/22 12/19/23 History esomeprazole magnesium 40 mg 40 mg PO DAILY 12/05/22 12/18/23 History capsule,delayed release insulin degludec 100 unit/mL (3 20 unit SQ DAILY 12/05/22 12/18/23 History mL) subcutaneous pen (Tresiba FlexTouch U-100 insulin) midodrine 5 mg tablet 10 mg PO TID 12/05/22 12/19/23 History citalopram 20 mg tablet 20 mg PO DAILY 11/27/23 12/18/23 History ferrous sulfate 325 mg (65 mg 325 mg PO DAILY 11/27/23 12/18/23 History iron) tablet (FeroSul) alprazolam 0.5 mg tablet 0.5 mg PO BIDP PRN Anxiety 10 days 11/29/23 12/18/23 Rx #20 tabs docusate sodium 100 mg capsule 100 mg PO DAILY 30 days #30 caps 11/29/2312/07 Rx gabapentin 800 mg tablet 800 mg PO BID 10 days #20 tabs 11/29/23 12/18/23 Rx magnesium oxide 400 mg (241.3 mg 400 mg PO BID 30 days #60 tabs 11/29/23 12/18/23 Rx magnesium) tablet metoprolol succinate 25 mg 12.5 mg (1/2 x 25 mg) PO BID 30 11/29/23 12/18/23 Rx tablet,extended release 24 hr days #30 tabs hydrocodone 10 mg-acetaminophen 1 tab PO QIDP PRN Moderate Pain 12/19/23 12/19/23 History 325 mg tablet (Scale Score 5-6) levofloxacin 500 mg tablet 500 mg PO DAILY 5 days #5 tabs 12/19/23 Rx promethazine 25 mg tablet 12.5 mg PO Q6HP PRN Nausea And 12/19/23 12/19/23 History Vomiting New Prescriptions to Start Prescriptions: Morris Rivera Allergies Allergy/AdvReac Type Severity Reaction Status Date / Time No Known Allergies Allergy Verified 12/16/23 11:05 Discharge Plan Disposition Patient Disposition: [facility] Condition: Good Discharge Order Discharge Orders: Discharge Order (Routine); Ordered 12/19/23 Ordered By: Morris Sanabria Follow up Plan Follow up with: Abel Ramos MD [Primary Care Provider] - 2 weeks Prescriptions/Medication Reconciliation: New levofloxacin 500 mg tablet 500 mg PO DAILY 5 Days Qty: 5 0RF Continued donepezil 10 MG tablet 10 mg PO HS tamsulosin 0.4 MG capsule 0.4 mg PO HS rivaroxaban 20 mg tablet 20 mg PO QPMWITHMEAL midodrine 5 mg tablet 10 mg PO TID esomeprazole magnesium 40 mg capsule,delayed release(DR/EC) 40 mg PO DAILY Patient Comments: TAKE 1 CAPSULE BY MOUTH ONCE DAILY insulin degludec [Tresiba FlexTouch U-100] 100 unit/mL (3 mL) insulin pen 20 unit SQ DAILY citalopram 20 mg tablet 20 mg PO DAILY Patient Comments: TAKE 1 TABLET BY MOUTH ONCE DAILY ferrous sulfate [FeroSul] 325 mg (65 mg iron) tablet 325 mg PO DAILY Patient Comments: TAKE 1 TABLET BY MOUTH ONCE DAILY magnesium oxide 400 mg (241.3 mg magnesium) Tablet 400 mg PO BID 30 Days Qty: 60 0RF docusate sodium 100 mg Capsule 100 mg PO DAILY 30 Days Qty: 30 0RF metoprolol succinate 25 mg Tablet Extended Release 24 Hr 12.5 mg PO BID 30 Days Qty: 30 0RF alprazolam 0.5 mg tablet 0.5 mg PO BIDP PRN (Reason: Anxiety) 10 Days Qty: 20 0RF gabapentin 800 MG tablet 800 mg PO BID 10 Days Qty: 20 0RF metformin 1,000 MG tablet 1,000 mg PO BIDWMEAL finasteride 5 MG tablet 5 mg PO DAILY hydrocodone-acetaminophen 10-325 mg tablet 1 tab PO QIDP PRN (Reason: Moderate Pain (Scale Score 5-6)) Patient Comments: TAKE 1 TABLET BY MOUTH 4 TIMES DAILY NEEDED FOR PAIN promethazine 25 mg tablet 12.5 mg PO Q6HP PRN (Reason: Nausea And Vomiting) Patient Comments: TAKE 1/2 (ONE-HALF) TABLET BY MOUTH EVERY 6 HOURS NEEDED FOR NAUSEA FOR 10 DAYS Problem Reconciliation Problems Reviewed?: Yes Patient Discharge Instructions ACTIVITY: Ambulate as tolerated DIET: continue same diet Patient Instructions: DI for Pneumonia -- Adult Providers Primary Care Provider: Abel Ramos Admsher Provider: Morris Sanabria Attending Provider: Morris Sanabria
--- NOTE | 2023-12-19 14:56 | PC.NURSE ---
Report called to Sandi at [facility].
== END 2023-12-19 15:36 ==
LOC: ER 15:42 → 2ND 17:10
PROVIDERS: Admitting Provider Internal Medicine; Emergency Provider Emergency Medicine; PCP Family Medicine; Visit Provider Internal Medicine
DX: J96.01 Acute respiratory failure with hypoxia; J18.9 Pneumonia, unspecified organism; E11.649 Type 2 diabetes mellitus with hypoglycemia without coma; I48.91 Unspecified atrial fibrillation; Z79.4 Long term (current) use of insulin; Z87.891 Personal history of nicotine dependence; R06.09 Other forms of dyspnea; Z79.899 Other long term (current) drug therapy; Z79.01 Long term (current) use of anticoagulants
CPT/HCPCS: 36415; 71045; 71250; 73502; 74176; 80048; 80053; 81001; 82803; 82962; 83690; 83735; 83880; 84145; 85025; 87040; 99291; G0378; J0456; J0696; J1956; J2405

== ENCOUNTER 2023-12-27 19:29 | Inpatient (IN) | payer MEDICARE, SELFPAY ==
[2023-12-27] VITALS (11 sets, daily range): BP systolic 108–164; BP diastolic 64–85; PULSE 80–99; RESP 16–47; TEMP 36.6; O2SAT 92–96; BMI 32.7
--- NOTE | 2023-12-27 19:40 | HMH.EDGENADL ---
Discharge Plan Disposition Patient Disposition: Admitted Condition: Serious Clinical Impressions Clinical Impression: Intractable nausea and vomiting Discharge ED Provider: Arthur Kee General Adult HPI <ILENE Louis - Last Filed: 12/27/23 23:21> General Chief complaint: Nausea/Vomiting/Diarrhea Stated complaint: n/v Time Seen by Provider: 12/27/23 19:40 History of Present Illness HPI narrative: Patient presents for evaluation of nausea and vomiting. Patient was admitted approximately 2 weeks ago for similar complaints but additionally was thought that he might have possible aspiration pneumonia. Patient presents from the intermediate today for intractable nausea and vomiting. Patient denies abdominal pain fever chills hemoptysis hematochezia melena hematemesis. Unfortunately patient has dementia and is a very poor historian and cannot give a reliable history. Patient reports that he is passing flatus and having bowel movements but I do not know the veracity of the statements. Related Data Home Medications Medication Instructions Recorded Confirmed finasteride 5 mg tablet 5 mg PO DAILY 05/12/21 12/18/23 metformin 1,000 mg tablet 1,000 mg PO BIDWMEAL 05/12/21 12/18/23 donepezil 10 mg tablet 10 mg PO HS 03/26/22 12/18/23 tamsulosin 0.4 mg capsule 0.4 mg PO HS 03/26/22 12/18/23 rivaroxaban 20 mg tablet 20 mg PO QPMWITHMEAL 04/27/22 12/19/23 esomeprazole magnesium 40 mg 40 mg PO DAILY 12/05/22 12/18/23 capsule,delayed release insulin degludec 100 unit/mL (3 20 unit SQ DAILY 12/05/22 12/18/23 mL) subcutaneous pen (Tresiba FlexTouch U-100 insulin) midodrine 5 mg tablet 10 mg PO TID 12/05/22 12/19/23 citalopram 20 mg tablet 20 mg PO DAILY 11/27/23 12/18/23 ferrous sulfate 325 mg (65 mg 325 mg PO DAILY 11/27/23 12/18/23 iron) tablet (FeroSul) hydrocodone 10 mg-acetaminophen 1 tab PO QIDP PRN Moderate Pain 12/19/23 12/19/23 325 mg tablet (Scale Score 5-6) promethazine 25 mg tablet 12.5 mg PO Q6HP PRN Nausea And 05/05/24 05/05/24 Vomiting Previous Rx's Medication Instructions Recorded alprazolam 0.5 mg tablet 0.5 mg PO BIDP PRN Anxiety 10 days 11/29/23 #20 tabs docusate sodium 100 mg capsule 100 mg PO DAILY 30 days #30 caps 11/29/23 gabapentin 800 mg tablet 800 mg PO BID 10 days #20 tabs 11/29/23 magnesium oxide 400 mg (241.3 mg 400 mg PO BID 30 days #60 tabs 11/29/23 magnesium) tablet metoprolol succinate 25 mg 12.5 mg (1/2 x 25 mg) PO BID 30 11/29/23 tablet,extended release 24 hr days #30 tabs levofloxacin 500 mg tablet 500 mg PO DAILY 5 days #5 tabs 12/19/23 cephalexin 500 mg capsule 500 mg PO BID 10 days #20 caps 12/27/23 Allergies Allergy/AdvReac Type Severity Reaction Status Date / Time No Known Allergies Allergy Verified 12/16/23 11:05 [facility] <ILENE Louis - Last Filed: 12/27/23 23:21> [facility] Disclaimer: The information contained in this section may have been updated after the patient was seen, as this information can be updated by other users. Medical History Abscess of lung Acute diverticulitis Arthritis Diabetes Afib Hypotension Abnormal electrocardiography Dyspnea Family History Other Family history of cancer Social History (Updated 12/18/23 @ 17:57 by Roxanne Garzon RN) Smoking Status: Never smoker alcohol intake: never substance use type: denies use current occupational status: disabled Travel in the last 8 weeks: Inside the [place] household members: spouse and children housing: house <ILENE Louis - Last Filed: 12/27/23 23:21> ROS Obtained: Yes Systems reviewed as appropriate & no additional complaints except as documented Physical Exam <ILENE Louis - Last Filed: 12/27/23 23:21> General General appearance: alert and in no apparent distress Eye Eye exam: Present normal appearance ENT ENT exam: Present normal exam and normal oropharynx Respiratory Respiratory exam: Present normal lung sounds bilaterally; Absent respiratory distress or wheezes Cardiovascular Cardiovascular exam: Present regular rate and normal rhythm Abdominal Exam Abdominal exam: Present soft and normal bowel sounds; Absent tenderness, guarding, rebound or rigidity Neurological Exam Neurological exam: Present alert (Patient is awake and interactive however he is oriented to only self and not circumstances) Medical Decision Making <ILENE Louis - Last Filed: 12/27/23 23:21> Medical Records Medical records reviewed: Yes I reviewed the patient's medical records. Antonio Inquiry Pt receiving controlled substance: No Vital Signs: 12/27/23 19:29 12/27/23 20:01 12/27/23 20:30 Temperature 98 F Temperature Source Oral Pulse Rate 80 89 Pulse Rate [Left] 85 Respiratory Rate 16 Blood Pressure 150/71 H 163/85 H Blood Pressure [Right Arm] 151/64 H Blood Pressure Mean 97 93 Blood Pressure Mean [Right Arm] 93 Blood Pressure Source [Right Arm] Automatic Cuff Blood Pressure Position [Right Arm] Sitting 02 Sat by Pulse Oximetry 95 92 L 94 L Oxygen Delivery Method Room Air Room Air 12/27/23 21:00 12/27/23 21:30 12/27/23 21:45 Temperature Temperature Source Pulse Rate 82 80 Pulse Rate [Left] Respiratory Rate 16 Blood Pressure 164/84 H 159/81 H 159/81 H Blood Pressure [Right Arm] Blood Pressure Mean 110 107 Blood Pressure Mean [Right Arm] Blood Pressure Source [Right Arm] Blood Pressure Position [Right Arm] 02 Sat by Pulse Oximetry 94 L 95 93 L Oxygen Delivery Method Room Air Room Air 12/27/23 22:01 12/27/23 22:31 Temperature Temperature Source Pulse Rate 99 H Pulse Rate [Left] Respiratory Rate 21 Blood Pressure 148/83 H 163/76 H Blood Pressure [Right Arm] Blood Pressure Mean 103 111 Blood Pressure Mean [Right Arm] Blood Pressure Source [Right Arm] Blood Pressure Position [Right Arm] 02 Sat by Pulse Oximetry 96 94 L Oxygen Delivery Method Room Air Room Air Lab Data Lab results reviewed: Yes I reviewed the patient's lab results. Lab Results 12/27/23 19:44: WBC 6.9, RBC 4.31 L, Hgb 13.4 L, Hct 41.5 L, MCV 96.5 H, MCH 31.2, MCHC 32.3, RDW 14.0, Plt Count 189, MPV 7.9, Neut % (Auto) 68.0, Lymph % (Auto) 23.3, [place] % (Auto) 4.9, Eos % (Auto) 3.0, Baso % (Auto) 0.9, Neut # (Auto) 4.7, Lymph # (Auto) 1.6, [place] # (Auto) 0.3, Eos # (Auto) 0.2, Baso # (Auto) 0.1, Sodium 136, Potassium 4.5, Chloride 99, Carbon Dioxide 30, Anion Gap 11.5, BUN 20, Creatinine 1.00, Estimated Creat Clear 80, Estimated GFR 71, Est GFR ( Amer) 86, Glucose 158 H, Calcium 9.1, Magnesium 1.3 L, Total Bilirubin 0.9, AST 28, ALT 15, Alkaline Phosphatase 115, Total Protein 6.5, Albumin 3.8, Globulin 2.7, Albumin/Globulin Ratio 1.4, Lipase 115 12/27/23 21:39: Urine Color Yellow, Urine Appearance Clear, Urine pH 7.0, Ur Specific [place] 1.025, Urine Protein Negative, Urine Glucose (UA) Negative, Urine Ketones 1+, Urine Blood Trace-i, Urine Nitrate Negative, Urine Bilirubin Negative, Urine Urobilinogen 0.2, Ur Leukocyte Esterase Negative, Urine RBC Occasional, Urine WBC None, Ur Squamous Epith Cells Occasional, Urine Bacteria None 12/27/23 23:13: Lactate 2.0 12/27/23 19:44 12/27/23 19:44 Orders (Tests/Meds): ED MEDICATIONS Discontinued Medications Generic Name Dose Route Start Last Admin Trade Name Allison PRN Reason Stop Dose Admin Acetaminophen 1,000 mg 12/27/23 19:47 12/27/23 19:54 Acetaminophen 1,000mg/100ml Vial IV 12/27/23 19:48 1,000 mg ONCE ONE Administration Droperidol 2.5 mg 12/27/23 21:37 12/27/23 21:41 Droperidol 5mg/2ml Vial IV 12/27/23 21:38 2.5 mg ONCE ONE Administration Lactated Ringer's 1,000 mls @ 999 mls/hr 12/27/23 19:47 12/27/23 19:54 Lactated Ringer's 1000 Ml Bag IV 12/27/23 20:47 999 mls/hr .Q1H1M ONE Administration Ketorolac Tromethamine 15 mg 12/27/23 19:47 12/27/23 19:54 Ketorolac 30mg/Ml Vial IV 12/27/23 19:48 15 mg ONCE ONE Administration Lactulose 40 gm 12/27/23 21:00 12/27/23 19:53 Lactulose 20gm/30ml Udc PO 01/26/24 20:59 40 gm QID ERIC Administration Ondansetron HCl 8 mg 12/27/23 19:47 12/27/23 19:58 Ondansetron 4mg Odt SL 12/27/23 19:48 Not Given ONCE ONE Promethazine HCl 12.5 mg 12/27/23 19:59 12/27/23 20:00 Promethazine Hcl 25mg/Ml 1ml Vial IV 12/27/23 20:00 12.5 mg ONCE ONE Administration Sodium Chloride 25 ml 12/27/23 19:59 12/27/23 20:00 Sodium Chloride 0.9% 25ml Bag IV 12/27/23 20:00 25 ml ONCE ONE Administration ORDERS Category Date Time Status CT abdomen pelvis wo con Stat Cat Scan 12/27/23 22:09 Taken CBC w/Auto Diff [Complete Blood Count Auto Diff] Stat Lab 12/27/23 19:44 Completed CMP [Comprehensive Metabolic Panel] Stat Lab 12/27/23 19:44 Completed Lactic Acid Stat Lab 12/27/23 23:13 Completed Lipase Stat Lab 12/27/23 19:44 Completed Magnesium Stat Lab 12/27/23 19:44 Completed UA [Urinalysis and Microscopic] Stat Lab 12/27/23 21:39 Completed Medical Decision Narrative: In summary patient is a 83-year-old male who presents to the emergency department for evaluation of nausea vomiting. Patient is hemodynamically stable upon arrival, afebrile. Physical exam is remarkable only for nausea vomiting but no abdominal pain no masses normal bowel sounds. Differential diagnosis includes constipation versus obstipation versus gastroenteritis etc. Initial workup will be conducted with hematologic labs CT scan abdomen pelvis. Initial interventions include crystalloid bolus Zofran Tylenol Toradol. Initial workup reviewed by me [hematologic labs are remarkable for... Imaging remarkable for... Urinalysis remarkable for]. Upon repeat evaluation was refractory to Zofran controlling his nausea so initiated 12.5 challenge of Phenergan. Patient again continues to have nausea vomiting refractory to Phenergan. Given that will order EKG and then initiate droperidol and likely admit. Patient is still refractory to droperidol therefore I had an interactive discussion with hospital medicine who has agreed for admission and further management and care <Arthur Kee, DO - Last Filed: 12/27/23 23:37> Vital Signs: 12/27/23 19:29 12/27/23 20:01 12/27/23 20:30 Temperature 98 F Temperature Source Oral Pulse Rate 80 89 Pulse Rate [Left] 85 Respiratory Rate 16 Blood Pressure 150/71 H 163/85 H Blood Pressure [Right Arm] 151/64 H Blood Pressure Mean 97 93 Blood Pressure Mean [Right Arm] 93 Blood Pressure Source [Right Arm] Automatic Cuff Blood Pressure Position [Right Arm] Sitting 02 Sat by Pulse Oximetry 95 92 L 94 L Oxygen Delivery Method Room Air Room Air 12/27/23 21:00 12/27/23 21:30 12/27/23 21:45 Temperature Temperature Source Pulse Rate 82 80 Pulse Rate [Left] Respiratory Rate 16 Blood Pressure 164/84 H 159/81 H 159/81 H Blood Pressure [Right Arm] Blood Pressure Mean 110 107 Blood Pressure Mean [Right Arm] Blood Pressure Source [Right Arm] Blood Pressure Position [Right Arm] 02 Sat by Pulse Oximetry 94 L 95 93 L Oxygen Delivery Method Room Air Room Air 12/27/23 22:01 12/27/23 22:31 Temperature Temperature Source Pulse Rate 99 H Pulse Rate [Left] Respiratory Rate 21 Blood Pressure 148/83 H 163/76 H Blood Pressure [Right Arm] Blood Pressure Mean 103 111 Blood Pressure Mean [Right Arm] Blood Pressure Source [Right Arm] Blood Pressure Position [Right Arm] 02 Sat by Pulse Oximetry 96 94 L Oxygen Delivery Method Room Air Room Air Lab Data Lab Results 12/27/23 19:44: WBC 6.9, RBC 4.31 L, Hgb 13.4 L, Hct 41.5 L, MCV 96.5 H, MCH 31.2, MCHC 32.3, RDW 14.0, Plt Count 189, MPV 7.9, Neut % (Auto) 68.0, Lymph % (Auto) 23.3, [place] % (Auto) 4.9, Eos % (Auto) 3.0, Baso % (Auto) 0.9, Neut # (Auto) 4.7, Lymph # (Auto) 1.6, [place] # (Auto) 0.3, Eos # (Auto) 0.2, Baso # (Auto) 0.1, Sodium 136, Potassium 4.5, Chloride 99, Carbon Dioxide 30, Anion Gap 11.5, BUN 20, Creatinine 1.00, Estimated Creat Clear 80, Estimated GFR 71, Est GFR ( Amer) 86, Glucose 158 H, Calcium 9.1, Magnesium 1.3 L, Total Bilirubin 0.9, AST 28, ALT 15, Alkaline Phosphatase 115, Total Protein 6.5, Albumin 3.8, Globulin 2.7, Albumin/Globulin Ratio 1.4, Lipase 115 12/27/23 21:39: Urine Color Yellow, Urine Appearance Clear, Urine pH 7.0, Ur Specific [place] 1.025, Urine Protein Negative, Urine Glucose (UA) Negative, Urine Ketones 1+, Urine Blood Trace-i, Urine Nitrate Negative, Urine Bilirubin Negative, Urine Urobilinogen 0.2, Ur Leukocyte Esterase Negative, Urine RBC Occasional, Urine WBC None, Ur Squamous Epith Cells Occasional, Urine Bacteria None 12/27/23 23:13: Lactate 2.0 Orders (Tests/Meds): ED MEDICATIONS Discontinued Medications Generic Name Dose Route Start Last Admin Trade Name Allison PRN Reason Stop Dose Admin Acetaminophen 1,000 mg 12/27/23 19:47 12/27/23 19:54 Acetaminophen 1,000mg/100ml Vial IV 12/27/23 19:48 1,000 mg ONCE ONE Administration Droperidol 2.5 mg 12/27/23 21:37 12/27/23 21:41 Droperidol 5mg/2ml Vial IV 12/27/23 21:38 2.5 mg ONCE ONE Administration Lactated Ringer's 1,000 mls @ 999 mls/hr 12/27/23 19:47 12/27/23 19:54 Lactated Ringer's 1000 Ml Bag IV 12/27/23 20:47 999 mls/hr .Q1H1M ONE Administration Ketorolac Tromethamine 15 mg 12/27/23 19:47 12/27/23 19:54 Ketorolac 30mg/Ml Vial IV 12/27/23 19:48 15 mg ONCE ONE Administration Lactulose 40 gm 12/27/23 21:00 12/27/23 19:53 Lactulose 20gm/30ml Udc PO 01/26/24 20:59 40 gm QID ERIC Administration Ondansetron HCl 8 mg 12/27/23 19:47 12/27/23 19:58 Ondansetron 4mg Odt SL 12/27/23 19:48 Not Given ONCE ONE Promethazine HCl 12.5 mg 12/27/23 19:59 12/27/23 20:00 Promethazine Hcl 25mg/Ml 1ml Vial IV 12/27/23 20:00 12.5 mg ONCE ONE Administration Sodium Chloride 25 ml 12/27/23 19:59 12/27/23 20:00 Sodium Chloride 0.9% 25ml Bag IV 12/27/23 20:00 25 ml ONCE ONE Administration ORDERS Category Date Time Status CT abdomen pelvis wo con Stat Cat Scan 12/27/23 22:09 Taken CBC w/Auto Diff [Complete Blood Count Auto Diff] Stat Lab 12/27/23 19:44 Completed CMP [Comprehensive Metabolic Panel] Stat Lab 12/27/23 19:44 Completed Lactic Acid Stat Lab 12/27/23 23:13 Completed Lipase Stat Lab 12/27/23 19:44 Completed Magnesium Stat Lab 12/27/23 19:44 Completed UA [Urinalysis and Microscopic] Stat Lab 12/27/23 21:39 Completed Medical Decision Narrative: In summary patient is a 83-year-old male who presents to the emergency department for evaluation of nausea vomiting. Patient is hemodynamically stable upon arrival, afebrile. Physical exam is remarkable only for nausea vomiting but no abdominal pain no masses normal bowel sounds. Differential diagnosis includes constipation versus obstipation versus gastroenteritis etc. Initial workup will be conducted with hematologic labs CT scan abdomen pelvis. Initial interventions include crystalloid bolus Zofran Tylenol Toradol. Initial workup reviewed by me [hematologic labs are remarkable for... Imaging remarkable for... Urinalysis remarkable for]. Upon repeat evaluation was refractory to Zofran controlling his nausea so initiated 12.5 challenge of Phenergan. Patient again continues to have nausea vomiting refractory to Phenergan. Given that will order EKG and then initiate droperidol and likely admit. Patient is still refractory to droperidol therefore I had an interactive discussion with hospital medicine who has agreed for admission and further management and care I was consulted by the SATISH, and we discussed the complexity of the problems being addressed. I approved the treatment and management plan for this patient's care in the Emergency Department, thus performing a substantive portion of the medical decision making. Arthur Kee, DO Critical Care <ILENE Louis - Last Filed: 12/27/23 23:21> Critical Care Time Critical Care Time: No
--- NOTE | 2023-12-27 19:47 | PC.NURSE ---
Pt family at bedside, pt is coughing up green sputum as well.
[2023-12-27] MEDS: LACTULOSE 20GM/30ML UDC 40 GM PO (19:53)
[2023-12-27] MEDS: LACTATED RINGERS 1000ML 1,000 ML 999 ML IV (19:54)
[2023-12-27] MEDS: ACETAMINOPHEN 1,000MG/100ML VIAL 1000 MG IV (19:54)
[2023-12-27] MEDS: KETOROLAC 30MG/ML VIAL 15 MG IV (19:54)
[2023-12-27 20:00] LABS: Basophils # 0.1 K/mm3 (0-0.2); Basophils % 0.9 % (0.1-2.0); Eosinophils # 0.2 K/mm3 (0.0-0.4); Hematocrit 41.5 % (42.0-52.0); Hemoglobin 13.4 g/dL (14.1-18.0); Lymphocytes # 1.6 K/mm3 (0.7-4.5); Lymphocytes % 23.3 % (10-50); Mean Corpuscular HGB Conc 32.3 g/dL (31.8-35.4); Mean Corpuscular Hemoglobin 31.2 pg (27.0-31.2); Mean Corpuscular Volume 96.5 fl (80-94); Mean Platelet Volume 7.9 fl (7.4-10.4); Monocytes # 0.3 K/mm3 (0.1-1.0); Monocytes % 4.9 % (1.7-9.3); Neutrophils # 4.7 K/mm3 (1.8-7.8); Platelet Count 189 K/mm3 (142-424); Red Blood Count 4.31 M/mm3 (4.60-6.20); White Blood Count 6.9 K/mm3 (4.8-10.8)
[2023-12-27] MEDS: SODIUM CHLORIDE 0.9% 25ML BAG 25 ML IV (20:00)
[2023-12-27] MEDS: PROMETHAZINE HCL 25MG/ML 1ML VIAL 12.5 MG IV (20:00)
--- NOTE | 2023-12-27 20:06 | PC.NURSE ---
Pt medicated, awaiting for phenergan to help with vomiting before giving lactulose
[2023-12-27 20:11] LABS: Chloride 99 mmol/L (98-107); Potassium 4.5 mmoL/L (3.5-5.1); Sodium 136 mmol/L (136-145)
[2023-12-27 20:14] LABS: Alanine Aminotransferase 15 U/L (12-78); Albumin Level 3.8 g/dl (3.5-5.0); Albumin/Globulin Ratio 1.4 (1.1-1.8); Alkaline Phosphatase 115 U/L (38-126); Anion Gap 11.5 mEq/L (5-15); Aspartate Amino Transferase 28 U/L (17-59); Bilirubin,Total 0.9 mg/dl (0.2-1.3); Blood Urea Nitrogen 20 mg/dl (9-20); Calcium 9.1 mg/dl (8.4-10.2); Carbon Dioxide 30 mmol/L (22.0-30.0); Creatinine Clearance Estimated 80 mL/min (50-200); Estimated Glomerular Filt Rate 71 ml/min (>60); GFR (African American) 86 ML/MIN (>60); Globulin 2.7 g/dL (1.3-3.2); Glucose 158 mg/dl (74-100); Total Protein,Serum 6.5 g/dl (6.3-8.2)
[2023-12-27 20:15] LABS: Magnesium 1.3 mg/dl (1.6-2.3)
--- NOTE | 2023-12-27 21:00 | PC.NURSE ---
Pt still vomiting after phenergan, unable to drink lactulose at this time
[2023-12-27] MEDS: droPERidol 5MG/2ML VIAL 2.5 MG IV (21:41)
--- NOTE | 2023-12-27 21:41 | ECG_ITS ---
APPROVED REPORT Exam: Resting ECG HR:88 bpm ECG Measurements Heart Rate 88 AXES QRSd 110 QRS -81 QT 383 T 43 QTc 429 Conclusion ATRIAL FIBRILLATION LOW QRS VOLTAGE IN PRECORDIAL LEADS [QRS DEFLECTION < 1.0 mV IN CHEST LEADS] PATTERN CONSISTENT WITH PULMONARY DISEASE INCOMPLETE RIGHT BUNDLE BRANCH BLOCK [90+ ms QRS DURATION, TERMINAL R IN V1/V2, 40+ ms S IN I/aVL/V4/V5/V6] LEFT ANTERIOR FASCICULAR BLOCK [QRS AXIS <= -45, QR IN I, RS IN II] ABNORMAL ECG UNCONFIRMED REPORT Electronically signed by : SEGUNDO ZHU, 12/27/2023 23:50:56
[2023-12-27 21:48] LABS: Microscopic, Urine URINE MICROSCOPIC (MICROSCOPIC)
[2023-12-27 22:00] LABS: Appearance,Urine CLEAR (Clear); Bilirubin,Urine Negative (Negative); Blood, Urine TRACE-I (Negative); Color,Urine YELLOW (Yellow); Glucose,Urine (UA) Negative (Negative); Ketones,Urine 1+ (Negative); Leukocyte Esterase,Urine Negative (Negative); Nitrate,Urine Negative (Negative); Protein,Urine Negative (Negative); Specific Gravity, Urine 1.025 (1.005-1.030); Urobilinogen,Urine 0.2 EU/dl (0.2)
--- NOTE | 2023-12-27 22:09 | CT_ITS ---
PROCEDURE INFORMATION: Exam: CT Abdomen And Pelvis Without Contrast Exam date and time: 12/27/2023 10:22 PM Age: 83 years old Clinical indication: Abdominal pain; Additional info: Acute abd pain TECHNIQUE: Imaging protocol: Computed tomography of the abdomen and pelvis without contrast. Radiation optimization: All CT scans at this facility use at least one of these dose optimization techniques: automated exposure control; mA and/or kV adjustment per patient size (includes targeted exams where dose is matched to clinical indication); or iterative reconstruction. COMPARISON: 1. CT ABDOMEN PELVIS WO CON 12/18/2023 6:[address] ANGIO ABDOMEN PELVIS 11/26/2023 7:[address] BONY PELVIS 11/26/2023 6:56 PM FINDINGS: Lungs: Scattered areas of bronchial wall thickening which are likely chronic inflammatory. A few areas of subpleural reticulation are noted, nonspecific. Liver: Normal. Gallbladder and bile ducts: No acute process. Pancreas: There is fatty replacement of the pancreas. Spleen: Normal. Adrenal glands: The adrenal glands appear normal. Kidneys and ureters: There are bilateral renal cysts. Stomach and bowel: There is large volume stool throughout the colon. Appendix: No evidence of appendicitis. Intraperitoneal space: Unremarkable. Vasculature: There is atherosclerotic disease of the visualized aorta and its major branch vessels. Lymph nodes: No lymphadenopathy. Urinary bladder: Unremarkable as visualized. Reproductive: No acute process. Bones/joints: There is diffuse degenerative disease of the visualized osseous structures. Status post intramedullary deann and nail fixation of a left femoral neck fracture. Old left posterior rib fractures. Soft tissues: Unremarkable. IMPRESSION: No acute inflammatory or obstructive process is identified. Incidental findings are described within the findings section. COMMENTS: Consistent with the [employer]'s Incidental Findings Committee white paper (J Am Jacobo Radiol 2018): Any incidental renal lesion less than 1 cm or classified as too small to characterize, or any incidental cystic renal lesion characterized as simple-appearing, is likely benign. No follow-up imaging is recommended for these lesions per consensus recommendations based on imaging criteria.
[2023-12-27 22:28] LABS: RBC,Urine Occasional #/hpf (0-3); Squamous Epithelial Cell,Urine Occasional #/hpf (0-5)
--- NOTE | 2023-12-27 22:38 | PC.NURSE ---
Pt nausea better after droperidol but refusing to drink lactulose at this time
[2023-12-27 23:18] LABS: Lipase 115 U/L (23-300)
--- NOTE | 2023-12-27 23:33 | PC.NURSE ---
Attempted to drop a 12F NGTube in right nare, residual in tubing, pt told me to take the hell out he couldn't stand it. NG tube pulled out, Cata Fraga RN assisted at bedside.
--- NOTE | 2023-12-27 23:43 | PC.NURSE ---
report called to Aleksandra JIANG 209 pt to go by lawanda
[2023-12-28] VITALS: BP 158/83; PULSE 108; RESP 23; TEMP 37.3; O2SAT 93; BMI 32.5
[2023-12-28] MEDS: PANTOPRAZOLE 40MG VIAL 40 MG IV ×3 (00:37→20:47)
[2023-12-28] MEDS: PROCHLORPERAZINE 10MG/2ML VIAL 10 MG IV ×4 (00:37→20:45)
[2023-12-28] MEDS: SODIUM CHLORIDE 0.9% 10ML VIAL 10 ML IV ×2 (00:37→08:54)
[2023-12-28] MEDS: SCOPOLAMINE 1.5MG/72HRS PATCH 1 EACH TD (00:40)
--- NOTE | 2023-12-28 00:53 | EXP.HP ---
History of Present Illness *Admission Date: 12/28/23 *Reason for visit:: Intractable vomiting *History of present illness: This is an 83-year-old male with past medical history of dementia, CAD, DM, iron deficiency anemia who presents emergency department today with complaints of vomiting. is at bedside and provides collateral and states that he has had off-and-on vomiting for the past month. Recently underwent left femur fracture repair and recently was discharged from rehab back home. States that he developed sudden onset of persistent vomiting yesterday. States he has been unable to keep any food or fluid down and has been retching pretty consistently over the last 12 to 24 hours. No fever noted. Denies diarrhea. No infectious symptoms. Emergency department workup mostly unremarkable. CT abdomen pelvis without any abnormalities. No leukocytosis noted. Urinalysis without evidence of infection. Magnesium of 1.3, otherwise unremarkable. Patient was medicated with several antiemetics in the emergency department with most improvement coming from droperidol. But did have subsequent episodes of vomiting. Given his cyclic vomiting, he will be admitted to hospital service for further evaluation management [facility] Disclaimer: The information contained in this section may have been updated after the patient was seen, as this information can be updated by other users. Medical History Abscess of lung Acute diverticulitis Arthritis Diabetes Afib Hypotension Abnormal electrocardiography Dyspnea Family History Other Family history of cancer Social History Smoking Status: Never smoker alcohol intake: never substance use type: denies use current occupational status: disabled Travel in the last 8 weeks: Inside the [place] household members: spouse and children housing: house Review of Systems Review of Systems Review of systems:: pertinent systems reviewed and negative unless documented below Meds Home Medications and Allergies Home Medications Medication Instructions Recorded Confirmed Type finasteride 5 mg tablet 5 mg PO DAILY 05/12/21 12/28/23 History metformin 1,000 mg tablet 1,000 mg PO BIDWMEAL 05/12/21 12/28/23 History donepezil 10 mg tablet 10 mg PO HS 03/26/22 12/28/23 History tamsulosin 0.4 mg capsule 0.4 mg PO HS 03/26/22 12/28/23 History rivaroxaban 20 mg tablet 20 mg PO QPMWITHMEAL 04/27/22 12/28/23 History esomeprazole magnesium 40 mg 40 mg PO DAILY 12/05/22 12/28/23 History capsule,delayed release insulin degludec 100 unit/mL (3 20 unit SQ DAILY 12/05/22 12/28/23 History mL) subcutaneous pen (Tresiba FlexTouch U-100 insulin) midodrine 5 mg tablet 5 mg PO TID 12/05/22 12/28/23 History citalopram 20 mg tablet 20 mg PO DAILY 11/27/23 12/28/23 History ferrous sulfate 325 mg (65 mg 325 mg PO DAILY 11/27/23 12/28/23 History iron) tablet (FeroSul) alprazolam 0.5 mg tablet 0.5 mg PO BIDP PRN Anxiety 10 days 11/29/23 12/28/23 Rx #20 tabs docusate sodium 100 mg capsule 100 mg PO DAILY 30 days #30 caps 11/29/23 12/28/23 Rx gabapentin 800 mg tablet 800 mg PO BID 10 days #20 tabs 11/29/23 12/28/23 Rx magnesium oxide 400 mg (241.3 mg 400 mg PO BID 30 days #60 tabs 11/29/23 12/28/23 Rx magnesium) tablet hydrocodone 10 mg-acetaminophen 1 tab PO QIDP PRN Moderate Pain 12/19/23 12/28/23 History 325 mg tablet (Scale Score 5-6) promethazine 25 mg tablet 12.5 mg PO Q6HP PRN Nausea And 12/19/23 12/28/23 History Vomiting cephalexin 500 mg capsule 500 mg PO BID 10 days #20 caps 12/27/23 Rx metoprolol succinate 25 mg 25 mg PO BID 12/28/23 12/28/23 History tablet,extended release 24 hr New Prescriptions to Start Prescriptions: cephalexin Dmitry Rosales Allergies Allergy/AdvReac Type Severity Reaction Status Date / Time No Known Allergies Allergy Verified 12/16/23 11:05 Exam Data for Last 24 hours Vital signs and Labs for Last 24 Hours: Temp Pulse Resp BP Pulse Ox O2 Del Method 98 F 89 47 H 108/82 L 95 Room Air 12/27/23 23:40 12/27/23 23:40 12/27/23 23:40 12/27/23 23:40 12/27/23 23:31 12/27/23 23:40 Laboratory Results - last 24 hr 12/27/23 19:44: WBC 6.9, RBC 4.31 L, Hgb 13.4 L, Hct 41.5 L, MCV 96.5 H, MCH 31.2, MCHC 32.3, RDW 14.0, Plt Count 189, MPV 7.9, Neut % (Auto) 68.0, Lymph % (Auto) 23.3, [place] % (Auto) 4.9, Eos % (Auto) 3.0, Baso % (Auto) 0.9, Neut # (Auto) 4.7, Lymph # (Auto) 1.6, [place] # (Auto) 0.3, Eos # (Auto) 0.2, Baso # (Auto) 0.1, Sodium 136, Potassium 4.5, Chloride 99, Carbon Dioxide 30, Anion Gap 11.5, BUN 20, Creatinine 1.00, Estimated Creat Clear 80, Estimated GFR 71, Est GFR ( Amer) 86, Glucose 158 H, Calcium 9.1, Magnesium 1.3 L, Total Bilirubin 0.9, AST 28, ALT 15, Alkaline Phosphatase 115, Total Protein 6.5, Albumin 3.8, Globulin 2.7, Albumin/Globulin Ratio 1.4, Lipase 115 12/27/23 21:39: Urine Color Yellow, Urine Appearance Clear, Urine pH 7.0, Ur Specific [place] 1.025, Urine Protein Negative, Urine Glucose (UA) Negative, Urine Ketones 1+, Urine Blood Trace-i, Urine Nitrate Negative, Urine Bilirubin Negative, Urine Urobilinogen 0.2, Ur Leukocyte Esterase Negative, Urine RBC Occasional, Urine WBC None, Ur Squamous Epith Cells Occasional, Urine Bacteria None 12/27/23 23:13: Lactate 2.0 I & O for Last 24 hours: Intake & Output 12/25/23 12/26/23 12/27/23 12/28/23 23:59 23:59 23:59 23:59 Weight 103.419 kg Constitutional Constitutional: no acute distress *Routine HEENT Exam Head: Present normocephalic Eye: Present EOMI and PERRL ENT: Present mucous membranes moist *Routine Neck Exam Neck: Present supple; Absent lymphadenopathy *Routine Respiratory Exam Respiratory: Present CTA bilaterally *Routine Cardiovascular Exam Cardiovascular: Present RRR *Routine Abdominal Exam Abdominal: Present soft and normoactive bowel sounds; Absent tenderness *Routine Rectal Exam Rectal:: deferred *Routine Genitalia Exam Genitalia:: deferred *Routine Extremities Exam Extremities: Absent cyanosis, clubbing or edema *Routine Skin Exam Skin: Present warm; Absent rash *Routine Neurological Exam Neurological: Present alert and oriented X3 Assessment and Plan *Assessment and plan (1) Intractable nausea and vomiting: Status: Acute Category: Medical Code(s): R11.2 - Nausea with vomiting, unspecified (2) T2DM (type 2 diabetes mellitus): Status: Acute Qualifiers: Diabetes mellitus complication status: without complication Diabetes mellitus [facility] insulin use: with [facility] use Qualified Code(s): E11.9 - Type 2 diabetes mellitus without complications; Z79.4 - group home (current) use of insulin Category: Medical Code(s): E11.9 - Type 2 diabetes mellitus without complications (3) Chronic anticoagulation: Status: Acute Category: Medical Code(s): Z79.01 - group home (current) use of anticoagulants (4) A-fib: Status: Acute Qualifiers: Atrial fibrillation type: persistent (not longstanding) Qualified Code(s): I48.19 - Other persistent atrial fibrillation Category: Medical Code(s): I48.91 - Unspecified atrial fibrillation Plan #Intractable nausea vomiting Likely secondary to cyclic vomiting episode. Patient has had prior history of recurrent vomiting. CT abdomen without abnormalities. Denies diarrhea Will add scopolamine and Compazine for antiemetics Continue maintenance IV fluids Will add PPI N.p.o., advance as tolerated #T2DM #Atrial fibrillation #Chronic anticoagulation Restart home medications once able to take p.o. DVT PPx, on home Xarelto Full code Attending attestation Patient was seen and evaluated at the bedside myself, agree with SATISH note.
[2023-12-28 00:57] LABS: POC Glucose,Bedside 227 (70-110)
[2023-12-28] MEDS: humaLOG 100 UNITS/ML 3ML VIAL (SSI) SQ ×2 (00:57→05:33)
[2023-12-28] MEDS: LACTATED RINGERS 1000ML 1,000 ML 100 ML IV ×3 (00:58→23:44)
--- NOTE | 2023-12-28 01:18 | PC.NURSE ---
unsure of all medications pt takes, was able to tell some according to med rec.
[2023-12-28 04:00] VITALS: BP 147/59; PULSE 99; RESP 20; TEMP 37.4; O2SAT 92; BMI 33.2
[2023-12-28] MEDS: HALOPERIDOL LACTATE 5 MG/ML VIAL 2 MG IV (04:29)
--- NOTE | 2023-12-28 04:53 | PC.NURSE ---
Pt is alert and oriented. Pt has had several episodes of vomiting, CLERICAL PROOFREADER notified, new orders carried out. Emesis appears liquid and green. Pt has not complained of any pain throughout shift. Pt has rested intermittently when not vomiting. Bed alarm on. Call light in reach.
--- NOTE | 2023-12-28 06:00 | XR_ITS ---
PROCEDURE INFORMATION: Exam: XR Chest Exam date and time: 12/28/2023 5:43 AM Age: 83 years old Clinical indication: Other: [place] TECHNIQUE: Imaging protocol: Radiologic exam of the chest. Views: 1 view. COMPARISON: CT CHEST WO CON 12/18/2023 6:24 PM FINDINGS: Lungs: Moderate atelectasis in the right lung is stable. Pleural spaces: Unremarkable. No pleural effusion. No pneumothorax. Heart/Mediastinum: Mild cardiomegaly is seen. Vasculature: The aorta is calcified and tortuous. Bones/joints: Unremarkable. IMPRESSION: Moderate atelectasis in the right lung is stable.
[2023-12-28 06:35] LABS: Basophils % 0.4 % (0.1-2.0); Eosinophils % 0.1 % (0.1-12.0); Hematocrit 41.1 % (42.0-52.0); Hemoglobin 13.1 g/dL (14.1-18.0); Lymphocytes # 0.8 K/mm3 (0.7-4.5); Lymphocytes % 16.2 % (10-50); Mean Corpuscular HGB Conc 31.9 g/dL (31.8-35.4); Mean Corpuscular Hemoglobin 31.2 pg (27.0-31.2); Mean Corpuscular Volume 97.8 fl (80-94); Monocytes # 0.2 K/mm3 (0.1-1.0); Neutrophils # 4.2 K/mm3 (1.8-7.8); Neutrophils % 80.3 % (37.0-80.0); Platelet Count 183 K/mm3 (142-424); White Blood Count 5.2 K/mm3 (4.8-10.8)
[2023-12-28] MEDS: CEFTRIAXONE SODIUM 2 GM in 0.9 % SODIUM CHLORIDE 100 ML IV (06:51)
[2023-12-28 07:14] LABS: Anion Gap 13.5 mEq/L (5-15); Blood Urea Nitrogen 22 mg/dl (9-20); Calcium 8.9 mg/dl (8.4-10.2); Carbon Dioxide 31 mmol/L (22.0-30.0); Chloride 96 mmol/L (98-107); Creatinine Clearance Estimated 82 mL/min (50-200); Estimated Glomerular Filt Rate 71 ml/min (>60); GFR (African American) 86 ML/MIN (>60); Glucose 204 mg/dl (74-100); Potassium 4.5 mmoL/L (3.5-5.1); Sodium 136 mmol/L (136-145)
[2023-12-28 07:19] LABS: Procalcitonin 0.048 ng/mL (0.0-2.0)
[2023-12-28] MEDS: AZITHROMYCIN 500 MG in 0.9 % SODIUM CHLORIDE 250 ML 250 MG IV (07:56)
[2023-12-28 08:00] VITALS: BP 146/83; PULSE 93; RESP 20; TEMP 37.5; O2SAT 93
--- NOTE | 2023-12-28 09:13 | PC.NURSE ---
pt vomited neon yellow on self and bed. Gave bed bath with LC. changed gown and linens.
[2023-12-28] MEDS: PROMETHAZINE HCL 25MG/ML 1ML VIAL 12.5 MG IV (09:50)
--- NOTE | 2023-12-28 10:03 | SW/DCPLANNER ---
This patient is currently established / [facility]. I will fax updated patient information/order to resume services at time of discharge.
[2023-12-28 11:00] LABS: POC Glucose,Bedside 150 (70-110)
[2023-12-28 11:40] VITALS: BP 120/74; PULSE 98; RESP 20; TEMP 37.5; O2SAT 92
--- NOTE | 2023-12-28 12:56 | HMH.PHAINT1 ---
Pharmacy Intervention Comments: MEDICATION RECONCILIATION COMPLETED ON PATIENT USING EXTERNAL FILL HISTORY FROM PHARMACY AND DISCHARGE SUMMARY FROM PREVIOUS ADMISSION. -ANTONIO HUGGINS, TONOD
[2023-12-28] MEDS: MORPHINE 2MG/ML SYRINGE 2 MG IV ×2 (13:07→20:46)
--- NOTE | 2023-12-28 13:40 | PC.NURSE ---
Pt family stated that after trying to consume lunch (clear liquid diet) he threw it back up
[2023-12-28 16:00] VITALS: BP 117/62; PULSE 93; RESP 22; TEMP 37.2; O2SAT 92
[2023-12-28 16:19] LABS: POC Glucose,Bedside 193 (70-110)
--- NOTE | 2023-12-28 17:33 | PC.NURSE ---
PT IS RESTING IN BED. ALERT AND ORIENTED X3. MEDICATED PER MAR FOR NAUSEA/VOMITING THIS SHIFT. THIS MORNING PT HAD MULTIPLE EPISODES OF GREEN/YELLOW EMESIS. PT WAS ABLE TO TOLERATE CLEAR LIQUIDS FOR DINNER. PHYSICIAN OKAYED FOR PT TO HAVE A FEW CRACKERS PER PT REQUEST. LUNG SOUNDS DIMINISHED. ABDOMEN SOFT WITH SOME LEFT SIDED TENDERNESS. STERI STRIPS NOTED TO INCISIONS ON THE LEFT HIP. PT AMBULATED TO THE BATHROOM X1 THIS SHIFT. WILL CONTINUE TO MONITOR.
--- NOTE | 2023-12-28 19:33 | PC.NURSE ---
pt bp was checked per nurse MBD 141/69
[2023-12-28 20:00] VITALS: BP 149/87; PULSE 100; RESP 18; TEMP 37.4; O2SAT 90
[2023-12-28 21:09] LABS: POC Glucose,Bedside 180 (70-110)
[2023-12-29] VITALS: BP 115/89; PULSE 78; RESP 20; TEMP 36.9; O2SAT 95
[2023-12-29] MEDS: PROCHLORPERAZINE 10MG/2ML VIAL 10 MG IV ×2 (03:48→12:06)
[2023-12-29 04:00] VITALS: BP 135/86; PULSE 97; RESP 16; TEMP 37.1; O2SAT 94; BMI 33.5
[2023-12-29] MEDS: humaLOG 100 UNITS/ML 3ML VIAL (SSI) SQ (05:10)
[2023-12-29 05:13] LABS: POC Glucose,Bedside 196 (70-110)
--- NOTE | 2023-12-29 05:24 | PC.NURSE ---
patient continues to have nausea and vomiting . emesis has green tent to it. bowel sounds positive x 4 quads. reports abdomen tender due to dry heaves. last compazine given at 0348. FSBS this AM was 196. Received 2 units S/S insulin. vital signs stable, afebrile.
[2023-12-29] MEDS: CEFTRIAXONE SODIUM 2 GM in 0.9 % SODIUM CHLORIDE 100 ML IV (05:33)
[2023-12-29] MEDS: SODIUM CHLORIDE 0.9% 25ML BAG 25 ML IV (05:50)
[2023-12-29] MEDS: PROMETHAZINE HCL 25MG/ML 1ML VIAL 12.5 MG IV (05:50)
[2023-12-29 08:00] VITALS: BP 135/86; PULSE 105; RESP 22; TEMP 36.6; O2SAT 94
[2023-12-29] MEDS: SODIUM CHLORIDE 0.9% 10ML VIAL 10 ML IV (09:08)
[2023-12-29] MEDS: AZITHROMYCIN 500 MG in 0.9 % SODIUM CHLORIDE 250 ML 250 MG IV (09:08)
[2023-12-29] MEDS: PANTOPRAZOLE 40MG VIAL 40 MG IV (09:08)
[2023-12-29] MEDS: LACTATED RINGERS 1000ML 1,000 ML 100 ML IV (09:48)
[2023-12-29] MEDS: MORPHINE 2MG/ML SYRINGE 2 MG IV (10:34)
[2023-12-29 11:26] VITALS: BP 135/72; PULSE 94; RESP 19; TEMP 36.9; O2SAT 94
[2023-12-29 11:54] LABS: POC Glucose,Bedside 200 (70-110)
--- NOTE | 2023-12-29 14:04 | XR_ITS ---
PROCEDURE INFORMATION: Exam: XR Abdomen Exam date and time: 12/29/2023 4:52 PM Age: 83 years old Clinical indication: Nausea; Additional info: Nausea vomiting TECHNIQUE: Imaging protocol: Radiologic exam of the abdomen. Views: Frontal supine view of the abdomen. 1 View. COMPARISON: CT ABDOMEN PELVIS WO CON 12/27/2023 10:22 PM FINDINGS: Lungs: Mild linear marking in the region of the minor fissure may reflect atelectasis or pleural scarring. Visualized lung bases are otherwise clear. Gastrointestinal tract: There is a nonobstructive bowel gas pattern. Gas is seen scattered throughout normal caliber loops of large and small bowel. No mural thickening, pneumatosis or portal venous gas. There is mildly excessive colonic stool content. Intraperitoneal space: Exclusion of pneumoperitoneum is limited on supine radiograph. No secondary signs. Surgical clips are seen in the GE junction region. Bones/joints: Postoperative changes involving the proximal left femur are incompletely visualized.The thoracolumbar spine demonstrates moderate degenerative changes at multiple levels. Soft tissues: No appreciable soft tissue masses or abnormal calcifications. IMPRESSION: 1. Nonobstructive bowel gas pattern. 2. Mild constipation.
--- NOTE | 2023-12-29 16:20 | P.DS_ITS ---
General Admission date:: 12/28/23 Discharge date: 12/29/23 HPI HPI HPI: This is an 83-year-old male with past medical history of dementia, CAD, DM, iron deficiency anemia who presents emergency department today with complaints of vomiting. is at bedside and provides collateral and states that he has had off-and-on vomiting for the past month. Recently underwent left femur fracture repair and recently was discharged from rehab back home. States that he developed sudden onset of persistent vomiting yesterday. States he has been unable to keep any food or fluid down and has been retching pretty consistently over the last 12 to 24 hours. No fever noted. Denies diarrhea. No infectious symptoms. Emergency department workup mostly unremarkable. CT abdomen pelvis without any abnormalities. No leukocytosis noted. Urinalysis without evidence of infection. Magnesium of 1.3, otherwise unremarkable. Patient was medicated with several antiemetics in the emergency department with most improvement coming from droperidol. But did have subsequent episodes of vomiting. Given his cyclic vomiting, he will be admitted to hospital service for further evaluation management Hospital Course Hospital Course Hospital Course: This is an 83-year-old male with past medical history of dementia, CAD, DM, iron deficiency anemia who presents emergency department today with complaints of vomiting. Patient has not improved and has not been holding down food, patient will be better served at higher level of care with GI equipped facility, patient will be transferred per patient family wishes, patient and family agrees with the plan, [facility] accepted the patient and patient will be transferred in stable consition #Intractable nausea vomiting GI evaluation, transfer to [facility] #T2DM #Atrial fibrillation #Chronic anticoagulation Restart home medications once able to take p.o. DVT PPx, on home Xarelto Full code Exam Data for Last 24 hours Vital signs and Labs for Last 24 Hours: Temp Pulse Resp BP Pulse Ox O2 Del Method 98.5 F 94 H 19 135/72 94 L Room Air 12/29/23 11:26 12/29/23 11:26 12/29/23 11:26 12/29/23 11:12/29/23 11:12/29/23 13:00 Laboratory Results - last 24 hr 12/28/23 20:50: POC Glucose 180 H 12/29/23 05:06: POC Glucose 196 H 12/29/23 11:46: POC Glucose 200 H I & O for Last 24 hours: Intake & Output 12/26/23 12/27/23 12/28/23 12/29/23 23:59 23:59 23:59 23:59 Intake Total 1506 / 2112 1445 / 1445 Output Total 1000 / 1350 900 / 900 Balance 506 / 762 545 / 545 Weight 103.419 kg 105.279 kg 106.095 kg Constitutional Constitutional: no acute distress *Routine HEENT Exam Head: Present normocephalic Eye: Present EOMI and PERRL ENT: Present mucous membranes moist *Routine Neck Exam Neck: Present supple; Absent lymphadenopathy *Routine Respiratory Exam Respiratory: Present CTA bilaterally *Routine Cardiovascular Exam Cardiovascular: Present RRR *Routine Abdominal Exam Abdominal: Present soft and normoactive bowel sounds; Absent tenderness *Routine Extremities Exam Extremities: Absent cyanosis, clubbing or edema *Routine Skin Exam Skin: Present warm; Absent rash *Routine Neurological Exam Neurological: Present alert and oriented X3 Results Data Completed and Pending Labs on day of discharge: Labs from last 24 hours 12/29/23 12/29/23 12/28/23 11:46 05:06 20:50 POC Glucose 200 H 196 H 180 H DS: Diagnosis Discharge Diagnosis (1) Intractable nausea and vomiting: Status: Acute Code(s): R11.2 - Nausea with vomiting, unspecified (2) T2DM (type 2 diabetes mellitus): Status: Acute Code(s): E11.9 - Type 2 diabetes mellitus without complications Qualifiers: Diabetes mellitus terminal makeup operator insulin use: with longterm use Diabetes mellitus complication status: without complication Qualified Code(s): E11.9 - Type 2 diabetes mellitus without complications; Z79.4 - snf (current) use of insulin (3) Chronic anticoagulation: Status: Acute Code(s): 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 anticoagulants (4) A-fib: Status: Acute Code(s): I48.91 - Unspecified atrial fibrillation Qualifiers: Atrial fibrillation type: persistent (not longstanding) Qualified Code(s): I48.19 - Other persistent atrial fibrillation Meds Home Medications and Allergies Home Medications Medication Instructions Recorded Confirmed Type finasteride 5 mg tablet 5 mg PO DAILY 05/12/21 12/28/23 History metformin 1,000 mg tablet 1,000 mg PO BIDWMEAL 05/12/21 12/28/23 History donepezil 10 mg tablet 10 mg PO HS 03/26/22 12/28/23 History tamsulosin 0.4 mg capsule 0.4 mg PO HS 03/26/22 12/28/23 History rivaroxaban 20 mg tablet 20 mg PO QPMWITHMEAL 04/27/22 12/28/23 History esomeprazole magnesium 40 mg 40 mg PO DAILY 12/05/22 12/28/23 History capsule,delayed release insulin degludec 100 unit/mL (3 20 unit SQ DAILY 12/05/22 12/28/23 History mL) subcutaneous pen (Tresiba FlexTouch U-100 insulin) midodrine 5 mg tablet 5 mg PO TID 12/05/22 12/28/23 History citalopram 20 mg tablet 20 mg PO DAILY 11/27/23 12/28/23 History ferrous sulfate 325 mg (65 mg 325 mg PO DAILY 11/27/23 12/28/23 History iron) tablet (FeroSul) alprazolam 0.5 mg tablet 0.5 mg PO BIDP PRN Anxiety 10 days 11/29/23 12/28/23 Rx #20 tabs docusate sodium 100 mg capsule 100 mg PO DAILY 30 days #30 caps 11/29/23 12/28/23 Rx gabapentin 800 mg tablet 800 mg PO BID 10 days #20 tabs 11/29/23 12/28/23 Rx magnesium oxide 400 mg (241.3 mg 400 mg PO BID 30 days #60 tabs 11/29/23 12/28/23 Rx magnesium) tablet hydrocodone 10 mg-acetaminophen 1 tab PO QIDP PRN Moderate Pain 12/19/23 12/28/23 History 325 mg tablet (Scale Score 5-6) promethazine 25 mg tablet 12.5 mg PO Q6HP PRN Nausea And 12/19/23 12/28/23 History Vomiting metoprolol succinate 25 mg 25 mg PO BID 12/28/23 12/28/23 History tablet,extended release 24 hr New Prescriptions to Start Prescriptions: Allergies Allergy/AdvReac Type Severity Reaction Status Date / Time No Known Allergies Allergy Verified 12/16/23 11:05 Discharge Plan Disposition Patient Disposition: [facility] Condition: Fair Discharge Order Discharge Orders: Discharge Order (Routine); Ordered 12/29/23 Ordered By: Morris Daniele Follow up Plan Prescriptions/Medication Reconciliation: Continued donepezil 10 MG tablet 10 mg PO HS tamsulosin 0.4 MG capsule 0.4 mg PO HS rivaroxaban 20 mg tablet 20 mg PO QPMWITHMEAL midodrine 5 mg tablet 5 mg PO TID esomeprazole magnesium 40 mg capsule,delayed release(DR/EC) 40 mg PO DAILY Patient Comments: TAKE 1 CAPSULE BY MOUTH ONCE DAILY insulin degludec [Tresiba FlexTouch U-100] 100 unit/mL (3 mL) insulin pen 20 unit SQ DAILY citalopram 20 mg tablet 20 mg PO DAILY Patient Comments: TAKE 1 TABLET BY MOUTH ONCE DAILY ferrous sulfate [FeroSul] 325 mg (65 mg iron) tablet 325 mg PO DAILY Patient Comments: TAKE 1 TABLET BY MOUTH ONCE DAILY magnesium oxide 400 mg (241.3 mg magnesium) Tablet 400 mg PO BID 30 Days Qty: 60 0RF docusate sodium 100 mg Capsule 100 mg PO DAILY 30 Days Qty: 30 0RF alprazolam 0.5 mg tablet 0.5 mg PO BIDP PRN (Reason: Anxiety) 10 Days Qty: 20 0RF gabapentin 800 MG tablet 800 mg PO BID 10 Days Qty: 20 0RF metformin 1,000 MG tablet 1,000 mg PO BIDWMEAL finasteride 5 MG tablet 5 mg PO DAILY hydrocodone-acetaminophen 10-325 mg tablet 1 tab PO QIDP PRN (Reason: Moderate Pain (Scale Score 5-6)) Patient Comments: TAKE 1 TABLET BY MOUTH 4 TIMES DAILY NEEDED FOR PAIN promethazine 25 mg tablet 12.5 mg PO Q6HP PRN (Reason: Nausea And Vomiting) Patient Comments: TAKE 1/2 (ONE-HALF) TABLET BY MOUTH EVERY 6 HOURS NEEDED FOR NAUSEA FOR 10 DAYS metoprolol succinate 25 mg tablet extended release 24 hr 25 mg PO BID Problem Reconciliation Problems Reviewed?: Yes Patient Discharge Instructions ACTIVITY: Ambulate as tolerated DIET: continue same diet Patient Instructions: DI for Nausea -- Adult, DI for Vomiting -- Adult Providers Primary Care Provider: Chaparro Almanza Admit Provider: Clemente Isabel Attending Provider: Clemente Isabel
[2023-12-29 16:22] VITALS: BP 135/72; PULSE 94; RESP 19; TEMP 36.9; O2SAT 94
== END 2023-12-29 17:37 | DRG 392 ==
LOC: ER 23:21 → 2ND 23:55
PROVIDERS: Nurse Practitioner Acute Care; Physician Assistant; Admitting Provider Internal Medicine Adolescent Medicine; Emergency Provider Emergency Medicine; PCP Internal Medicine; Visit Provider Internal Medicine Adolescent Medicine
DX: R11.2 Nausea with vomiting, unspecified (principal); I48.19 Other persistent atrial fibrillation; E11.9 Type 2 diabetes mellitus without complications; Z79.4 Long term (current) use of insulin; Z79.01 Long term (current) use of anticoagulants; I25.10 Atherosclerotic heart disease of native coronary artery without angina pectoris
CPT/HCPCS: 36415; 71045; 74018; 74176; 80048; 80053; 81001; 82962; 83605; 83690; 83735; 84145; 85025; 93005; 99285; G0378; J0131; J0456; J0696; J1790

== ENCOUNTER 2024-02-10 13:06 | Outpatient (CLI) | payer MEDICARE, SELFPAY ==
--- NOTE | 2024-02-10 13:10 | XR_ITS ---
FINAL REPORT CLINICAL HISTORY: left hip fx COMPARISON: 12/16/2023 FINDINGS: LEFT HIP: Two views of the left hip with an AP view of the pelvis demonstrate sclerosis of the intertrochanteric left femur which is indicative of healing fracture. The hardware appears unremarkable. There is no evidence of displaced fracture. The joint spaces appear normal. The visualized bony structures are well aligned. No soft tissue abnormality is seen. IMPRESSION: Healing intertrochanteric left femur fracture. Reviewed, Interpreted and Dictated by Mohamud Holt MD Transcribed by Marie Malone Authenticated and . [facility]
== END 2024-02-10 23:59 | disposition home or self-care (01) ==
LOC: RAD 13:08
PROVIDERS: PCP Internal Medicine; Visit Provider Orthopaedic Surgery
DX: M25.552 Pain in left hip (principal)
CPT/HCPCS: 73502

== ENCOUNTER 2024-03-26 04:09 | Observation (INO) | payer MEDICARE, SELFPAY ==
[2024-03-26] VITALS (15 sets, daily range): BP systolic 110–158; BP diastolic 62–104; PULSE 84–123; RESP 14–26; TEMP 36.9–37.6; O2SAT 85–98; BMI 30.7; BMI 31.1
--- NOTE | 2024-03-26 04:22 | CT_ITS ---
PROCEDURE INFORMATION: Exam: CT Abdomen And Pelvis With Contrast Exam date and time: 03/26/2024 5:46 AM Age: 84 years old Clinical indication: Nausea and vomiting; Additional info: Nausea, vomiting, back pain, general malaise TECHNIQUE: Imaging protocol: Computed tomography of the abdomen and pelvis with contrast. Radiation optimization: All CT scans at this facility use at least one of these dose optimization techniques: automated exposure control; mA and/or kV adjustment per patient size (includes targeted exams where dose is matched to clinical indication); or iterative reconstruction. Contrast material: ISOVUE; Contrast volume: 75 ml; Contrast route: IV; COMPARISON: CT ABDOMEN PELVIS WO CON 12/27/2023 10:22 PM FINDINGS: Heart: The heart is mildly enlarged. Coronary arteries: There are coronary artery calcifications. Diaphragm: There is a small hiatal hernia. Liver: Normal. No mass. Gallbladder and biliary ducts: No calcified stones. No ductal dilation. Pancreas: Normal. No ductal dilation. Spleen: Normal. No splenomegaly. Adrenal glands: Normal. No mass. Kidneys and ureters: Bilateral renal cysts are. Stomach and bowel: There is extensive diverticulosis of the colon. Appendix: No evidence of appendicitis. Intraperitoneal space: There are surgical clips in the epigastrium. Vasculature: There is athrosclerotic disease involving the abdominal aorta and pelvis vessels without an aneurysm. Lymph nodes: No enlarged lymph nodes. Urinary bladder: The bladder is decompressed. Wall thickening could be present. Reproductive: Unremarkable as visualized. Bones/joints: There are marked degenerative changes of the spine. There is partial visualization of a proximal left femoral pinning. Soft tissues: Unremarkable. IMPRESSION: 1. Extensive diverticulosis. 2. Question bladder wall thickening. Correlation with urinalysis recommended. COMMENTS: Consistent with the [employer]'s Incidental Findings Committee white paper (J Am Jacobo Radiol 2018): Any incidental renal lesion less than 1 cm or classified as too small to characterize, or any incidental cystic renal lesion characterized as simple-appearing, is likely benign. No follow-up imaging is recommended for these lesions per consensus recommendations based on imaging criteria.
--- NOTE | 2024-03-26 04:23 | XR_ITS ---
PROCEDURE INFORMATION: Exam: XR Chest Exam date and time: 03/26/2024 5:47 AM Age: 84 years old Clinical indication: Other: Genearlized malaise TECHNIQUE: Imaging protocol: Radiologic exam of the chest. Views: 1 view. COMPARISON: CR XR CHEST PORTABLE 12/28/2023 5:43 AM FINDINGS: Lungs: There is some basilar atelectasis or scarring re-identified. Pleural spaces: No pleural effusion. No pneumothorax. Heart/Mediastinum: The heart is mildly enlarged. Bones/joints: There are degenerative changes of the spine and shoulders. IMPRESSION: 1. No evidence of active pulmonary disease. 2. Mild cardiomegaly. 3. A followup PA and lateral radiograph is recommended when the patient is clinically able.
--- NOTE | 2024-03-26 04:25 | HMH.EDGENADL ---
Discharge Plan Disposition Patient Disposition: Admitted Clinical Impressions Clinical Impression: Atrial fibrillation with rapid ventricular response, Generalized weakness, Opioid overdose, Leukopenia Discharge ED Provider: Arvind Feliciano General Adult HPI <Marco Campos MD - Last Filed: 03/26/24 07:04> General Chief complaint: Weakness Stated complaint: knee pain Time Seen by Provider: 03/26/24 04:15 History of Present Illness HPI narrative: 84-year-old male with history of hip fracture that had to be operatively repaired in November, type 2 diabetes, A-fib, osteoarthritis presents to the ER for concerns of generalized malaise, poor appetite for the last few days. He reports feeling chilled and requiring multiple blankets at home. Patient has also had nausea, 1 episode of emesis while in the car on the way here. Patient is also complaining of bodyaches in his back and legs. No recent injuries or falls. He reports low back pain. Reports his last bowel movement was yesterday. He denies dizziness or lightheadedness. Great grandson who lives with the patient and patient's is at bedside with him. Related Data Home Medications ?Medication ?Instructions ?Recorded ?Confirmed finasteride 5 mg tablet 5 mg PO DAILY 05/12/21 03/26/24 metformin 1,000 mg tablet 1,000 mg PO BIDWMEAL 05/12/21 03/26/24 donepezil 10 mg tablet 10 mg PO HS 03/26/22 03/26/24 tamsulosin 0.4 mg capsule 0.4 mg PO HS 03/26/22 03/26/24 rivaroxaban 20 mg tablet 20 mg PO QPMWITHMEAL 04/27/22 03/26/24 esomeprazole magnesium 40 mg 40 mg PO DAILY 12/05/22 03/26/24 capsule,delayed release insulin degludec 100 unit/mL (3 20 unit SQ DAILY 12/05/22 03/26/24 mL) subcutaneous pen (Tresiba FlexTouch U-100 insulin) midodrine 5 mg tablet 5 mg PO TID 12/05/22 03/26/24 citalopram 20 mg tablet 20 mg PO DAILY 11/27/23 03/26/24 ferrous sulfate 325 mg (65 mg 325 mg PO DAILY 11/27/23 03/26/24 iron) tablet (FeroSul) hydrocodone 10 mg-acetaminophen 1 tab PO QIDP PRN Moderate Pain 12/19/23 03/26/24 325 mg tablet (Scale Score 5-6) promethazine 25 mg tablet 12.5 mg PO Q6HP PRN Nausea And 12/19/23 03/26/24 Vomiting metoprolol succinate 25 mg 25 mg PO BID 12/28/23 03/26/24 tablet,extended release 24 hr Previous Rx's ?Medication ?Instructions ?Recorded alprazolam 0.5 mg tablet 0.5 mg PO BIDP PRN Anxiety 10 days 11/29/23 #20 tabs docusate sodium 100 mg capsule 100 mg PO DAILY 30 days #30 caps 11/29/23 gabapentin 800 mg tablet 800 mg PO BID 10 days #20 tabs 11/29/23 magnesium oxide 400 mg (241.3 mg 400 mg PO BID 30 days #60 tabs 11/29/23 magnesium) tablet Allergies Allergy/AdvReac Type Severity Reaction Status Date / Time No Known Allergies Allergy Verified 02/10/24 13:58 PFSH <Marco Campos MD - Last Filed: 03/26/24 07:04> [facility] Disclaimer: The information contained in this section may have been updated after the patient was seen, as this information can be updated by other users. Medical History Abscess of lung Acute diverticulitis Arthritis Diabetes Afib Hypotension Abnormal electrocardiography Dyspnea Family History Other Family history of cancer Social History Smoking Status: Never smoker alcohol intake: never substance use type: denies use current occupational status: disabled Travel in the last 8 weeks: Inside the [place] household members: spouse and children housing: house <Marco Campos MD - Last Filed: 03/26/24 07:04> ROS Obtained: Yes All systems reviewed & no additional complaints except as documented Constitutional Constitutional: Reports chills, Reports fatigue and Reports malaise Gastrointestinal Gastrointestingal: Reports nausea and vomiting Musculoskeletal Musculoskeletal: Reports back pain and Reports myalgias Endocrine Endocrine: Reports fatigue Physical Exam <Marco Campos MD - Last Filed: 03/26/24 07:04> General General appearance: alert and in no apparent distress Comment: Chronically ill-appearing Head Head exam: atraumatic and normocephalic Eye Eye exam: Present PERRL and EOMI ENT ENT exam: Present mucous membranes moist Neck Neck exam: Present normal inspection and full ROM Chest Chest inspection: Present symmetric chest wall rise Respiratory Respiratory exam: Present normal lung sounds bilaterally; Absent respiratory distress, wheezes or stridor Cardiovascular Cardiovascular exam: Present normal rhythm and tachycardia Abdominal Exam Abdominal exam: Present soft and tenderness (Mild diffuse); Absent distention, guarding, rebound or rigidity Extremities Exam Extremities exam: Present full ROM and tenderness (Diffuse muscle tenderness in all muscle groups of the lower extremities, no joint swelling, no edema, no calf swelling); Absent edema or joint swelling Back Exam Back exam: Present tenderness (Muscle paraspinal tenderness, no findings of injury); Absent CVA tenderness (R) or CVA tenderness (L) Neurological Exam Neurological exam: Present alert, oriented X3 and motor sensory deficit (Patient has diffuse weakness, no localizing deficits, legs are weaker than the arms but equal bilaterally, no sensory deficits) Psychiatric Psychiatric exam: Present normal affect and normal mood Skin Skin exam: Present warm and dry Medical Decision Making <Marco Campos MD - Last Filed: 03/26/24 07:04> Medical Records Medical records reviewed: Yes I reviewed the patient's medical records. MR Comment: Patient has history of admission for acute hypoxic respiratory failure since his hip fracture. [place] Inquiry Pt receiving controlled substance: No Vital Signs: 03/26/24 04:25 03/26/24 07:00 03/26/24 07:30 Temperature 99.6 F Temperature Source Core Pulse Rate 91 H 109 H Pulse Rate [Left Radial] 110 H Respiratory Rate 18 22 14 Blood Pressure 138/83 150/88 H Blood Pressure [Right Arm] 133/67 Blood Pressure Mean [Right Arm] 89 Blood Pressure Source Blood Pressure Position 02 Sat by Pulse Oximetry 96 93 L 96 Oxygen Delivery Method Room Air Nasal Cannula Nasal Cannula Oxygen Flow Rate (LPM) 03/26/24 08:01 03/26/24 08:30 03/26/24 08:45 Temperature Temperature Source Pulse Rate 105 H 113 H 123 H Pulse Rate [Left Radial] Respiratory Rate 26 H 22 Blood Pressure 158/104 H 138/80 Blood Pressure [Right Arm] Blood Pressure Mean [Right Arm] Blood Pressure Source Blood Pressure Position 02 Sat by Pulse Oximetry 96 88 L 85 L Oxygen Delivery Method Room Air Room Air Room Air Oxygen Flow Rate (LPM) 03/26/24 08:49 03/26/24 09:01 03/26/24 09:35 Temperature 98.5 F Temperature Source Temporal Artery Scan Pulse Rate 110 H 96 H 100 H Pulse Rate [Left Radial] Respiratory Rate 21 18 18 Blood Pressure 135/78 120/70 144/90 H Blood Pressure [Right Arm] Blood Pressure Mean [Right Arm] Blood Pressure Source Automatic Cuff Blood Pressure Position Sitting 02 Sat by Pulse Oximetry 92 L 97 Oxygen Delivery Method Nasal Cannula Room Air Nasal Cannula Oxygen Flow Rate (LPM) 3 3 Lab Data Lab Results 03/26/24 04:50: WBC 4.3 L, RBC 4.52 L, Hgb 13.4 L, Hct 44.3, MCV 98.2 H, MCH 29.6, MCHC 30.1 L, RDW 14.9, Plt Count 138 L, MPV 8.0, Neut % (Auto) 59.1, Lymph % (Auto) 29.5, [place] % (Auto) 6.8, Eos % (Auto) 3.5, Baso % (Auto) 1.1, Neut # (Auto) 2.5, Lymph # (Auto) 1.3, [place] # (Auto) 0.3, Eos # (Auto) 0.2, Baso # (Auto) 0.1, Sodium 135 L, Potassium 4.7, Chloride 101, Carbon Dioxide 29, Anion Gap 9.7, BUN 23 H, Creatinine 1.10, Estimated Creat Clear 69, Estimated GFR 64, Est GFR ( Amer) 77, Glucose 180 H, Lactate 2.0, Calcium 8.6, Total Bilirubin 0.8, AST 28, ALT 25, Alkaline Phosphatase 68, Troponin I < 0.01, Total Protein 5.9 L, Albumin 3.6, Globulin 2.3, Albumin/Globulin Ratio 1.6, Chlamy pneumoniae PCR Not detected, Adenovirus (PCR) Not detected, B. pertussis DNA (PCR) Not detected, Coronavirus OC43 (PCR) Not detected, Coronavirus HKU1 (PCR) Not detected, Coronavirus 229E (PCR) Not detected, SARS-CoV-2 (PCR) Not detected, Coronavirus NL63 (PCR) Not detected, Human Metapneumovir PCR Not detected, Influenza A (H1) PCR Not detected, Influ A (H1N1/09) PCR Not detected, Influenza A (H3) PCR Not detected, Influenza Type A (PCR) Not detected, Influenza Type B (PCR) Not detected, M. pneumoniae (PCR) Not detected, Parainfluenza 1 (PCR) Not detected, Parainfluenza 2 (PCR) Not detected, Parainfluenza 3 (PCR) Not detected, Parainfluenza 4 (PCR) Not detected, RSV (PCR) Not detected, Entero/Rhino (PCR) Not detected 03/26/24 04:52: Urine Color Yellow, Urine Appearance Clear, Urine pH 7.0, Ur Specific Boring 1.020, Urine Protein Negative, Urine Glucose (UA) Negative, Urine Ketones Trace, Urine Blood Trace-l, Urine Nitrate Negative, Urine Bilirubin Negative, Urine Urobilinogen 0.2, Ur Leukocyte Esterase Negative, Urine RBC 5-10, Urine WBC Occasional, Ur Squamous Epith Cells 3-5, Urine Bacteria Trace, Urine Mucus Trace 03/26/24 07:50: Troponin I < 0.01 03/26/24 04:50 03/26/24 04:50 Orders (Tests/Meds): ED MEDICATIONS Generic Name Dose Route Start Last Admin Trade Name Freq PRN Reason Stop Dose Admin Acetaminophen 650 mg 03/26/24 09:44 Acetaminophen 325mg Tab PO 04/25/24 09:43 Q4HP PRN Fever or Mild Pain (1-3) Hydrocodone Bitart/Acetaminophen 1 tab 03/26/24 14:34 Hydrocodone 10mg/Apap 325mg Tab PO 04/25/24 14:33 QIDP PRN Moderate Pain (Scale Score 5-6) Alprazolam 0.5 mg 03/26/24 14:34 Alprazolam 0.5mg Tablet PO 04/25/24 14:33 BIDP PRN Anxiety Citalopram Hydrobromide 20 mg 03/27/24 09:00 Citalopram 20mg Tablet PO 04/26/24 08:59 DAILY ERIC Docusate Sodium 100 mg 03/27/24 09:00 Docusate Sodium 100 Mg Capsule PO 04/26/24 08:59 DAILY ERIC Donepezil HCl 10 mg 03/26/24 21:00 Donepezil 10mg Tab PO 04/25/24 20:59 HS [facility] Ferrous Sulfate 325 mg 03/27/24 09:00 Ferrous Sulfate 325mg Tablet PO 04/26/24 08:59 DAILY ERIC Finasteride 5 mg 03/27/24 09:00 Finasteride 5mg Tablet PO 04/26/24 08:59 DAILY [facility] Gabapentin 800 mg 03/26/24 21:00 Gabapentin 800mg Tablet PO 04/25/24 20:59 BID [facility] Insulin Glargine 16 unit 03/26/24 21:00 Insulin Glargine 100 Units/Ml 3ml Flexpen SQ 04/25/24 20:59 HS [facility] Magnesium Oxide 400 mg 03/26/24 21:00 Magnesium Oxide 400mg Tablet PO 04/25/24 20:59 BID [facility] Metformin HCl 1,000 mg 03/26/24 17:30 Metformin 500mg Tablet PO 04/25/24 17:29 BIDWMEAL [facility] Metoprolol Succinate 25 mg 03/26/24 21:00 Metoprolol Succinate Xl 25mg Tablet PO 04/25/24 20:59 BID [facility] Midodrine 5 mg 03/26/24 21:00 Midodrine Hcl 5 Mg Tablet PO 04/25/24 20:59 TID [facility] Ondansetron HCl 4 mg 03/26/24 09:44 Ondansetron 4mg/2ml Vial IV 04/25/24 09:43 Q8HP PRN Nausea Pantoprazole Sodium 40 mg 03/26/24 21:00 Pantoprazole 40mg Tablet PO 04/25/24 20:59 HS [facility] Promethazine HCl 12.5 mg 03/26/24 14:34 Promethazine 25mg Tablet PO 04/25/24 14:33 Q6HP PRN Nausea And Vomiting Rivaroxaban 20 mg 03/26/24 17:30 Rivaroxaban 10mg Tablet PO 04/25/24 17:29 QPMWITHMEAL [facility] Sodium Chloride 10 ml 03/26/24 05:59 03/26/24 06:02 Sodium Chloride 0.9% 10ml Syr (Rad Only) IV 04/25/24 05:58 10 ml NEEDED PRN Administration Maintain IV Site Tamsulosin HCl 0.4 mg 03/26/24 21:00 Tamsulosin 0.4mg Capsule PO 04/25/24 20:59 HS [facility] Discontinued Medications Generic Name Dose Route Start Last Admin Trade Name Allison PRN Reason Stop Dose Admin Lactated Ringer's 1,000 mls @ 999 mls/hr 03/26/24 04:22 03/26/24 05:00 Lactated Ringer's 1000 Ml Bag IV 03/26/24 05:22 999 mls/hr .Q1H1M ONE Administration Iopamidol 75 ml 03/26/24 05:59 03/26/24 06:01 Iopamidol-370 (76%);100ml Bottle IV 03/26/24 06:00 75 ml ONCE ONE Administration Metoprolol Succinate 25 mg 03/26/24 08:37 03/26/24 09:12 Metoprolol Succinate Xl 25mg Tablet PO 03/26/24 08:38 25 mg ONCE ONE Administration Metoprolol Tartrate 5 mg 03/26/24 06:41 03/26/24 06:45 Metoprolol Tartrate 5mg/5ml Vial IV 03/26/24 06:42 5 mg ONCE ONE Administration Naloxone HCl 0.4 mg 03/26/24 05:06 03/26/24 05:09 Naloxone 0.4mg/Ml Vial IV 03/26/24 05:07 Not Given ONCE ONE Naloxone HCl 0.4 mg 03/26/24 05:09 03/26/24 05:12 Naloxone 2mg/2ml Syringe IV 03/26/24 05:10 0.4 mg ONCE ONE Administration Ondansetron HCl 4 mg 03/26/24 04:23 03/26/24 05:00 Ondansetron 4mg/2ml Vial IV 03/26/24 04:24 4 mg ONCE ONE Administration Ondansetron HCl 4 mg 03/26/24 08:08 03/26/24 08:10 Ondansetron 4mg/2ml Vial IV 03/26/24 08:09 4 mg ONCE ONE Administration Prochlorperazine Edisylate 10 mg 03/26/24 06:39 03/26/24 06:45 Prochlorperazine 10mg/2ml Vial IV 03/26/24 06:40 10 mg ONCE ONE Administration ORDERS Category Date Time Status CT abdomen pelvis w con Stat Cat Scan 03/26/24 04:22 Completed CXR --portable [XR chest portable] Stat Exams 03/26/24 04:23 Completed CBC w/Auto Diff [Complete Blood Count Auto Diff] Stat Lab 03/26/24 04:50 Completed CMP [Comprehensive Metabolic Panel] Stat Lab 03/26/24 04:50 Completed Full Resp Panel w/COVID ([facility]) Routine Lab 03/26/24 04:50 Completed Lactic Acid Stat Lab 03/26/24 04:50 Completed Trop I [Troponin I] Stat Lab 03/26/24 04:50 Completed Troponin I Q3H Lab 03/26/24 07:50 Completed Troponin I Q3H Lab 03/26/24 10:45 Completed Urinalysis and Microscopic Stat Lab 03/26/24 04:52 Completed VBG [Venous Blood Gas] Stat RT 03/26/24 09:24 Completed ECG Request Stat Y 03/26/24 04:23 Ordered Medical Decision Narrative: In summary, this 84-year-old male presents to the emergency department today with concerns of generalized malaise, diffuse weakness, poor appetite, nausea, vomiting. On initial evaluation patient is tachycardic but otherwise hemodynamically stable, afebrile, GCS 15, no localizing neurodeficits, patient is diffusely weak requiring 3 person assist to ambulate from chair to bed, diffuse tenderness in the bilateral lower extremities as well as low back, no CVA tenderness, mild generalized abdominal tenderness without rebound or guarding, nonacute abdomen. Differential diagnosis includes but is not limited to viral syndrome, ACS, urinary tract infection, electrolyte abnormality, dehydration, kidney dysfunction, liver dysfunction, I considered possibility of DVT, however this is extremely unlikely given symptoms are equal bilaterally. Based on these concerns, I ordered viral swab, serum labs, cardiac workup, CT abdomen pelvis, urine studies. ECG personally interpreted demonstrates A-fib with RVR, left axis deviation, normal QTc, no STEMI. Patient received IV fluids, Zofran for treatment. As patient rested in his room, he fell asleep and had frequent apnea. He had extremely small pupils, though they were reactive to light. Review of his medications demonstrates benzos and opioids, concerning for respiratory depression from medication side effect. He had some any episodes of apnea and intermittent hypoxia that he received IV Narcan. After receiving this, he no longer had apneic episodes. I discussed this with patient's great?grandson at bedside who states the patient hoards his medication and no one helps administer medications to him. I recommended that medication administration be taken over by someone else in the family so that it is more clear how much of what medications patient is taking. and additional family members presented later in the encounter and corroborated this great-grandson's story identically. Labs personally reviewed demonstrate leukopenia, anemia, thrombocytopenia, mild prerenal azotemia, trace hyponatremia, initial troponin undetectably low at less than 0.01, UA negative for findings of infection. Patient received metoprolol for A-fib with RVR in an attempt to control his rate though he seems to be tolerating it well and is not hemodynamically unstable XR personally interpreted demonstrates no obvious lobar infiltrate, bibasilar atelectasis. Radiology read pending. CT imaging pending at this time. I anticipate this patient will require admission for debility, polypharmacy, symptoms of opioid overdose, however imaging results and respiratory panel are still pending. Patient handed off to Dr. Godinez at physician shift change for further management and disposition. <Arvind Feliciano MD - Last Filed: 03/26/24 14:44> Vital Signs: 03/26/24 04:25 03/26/24 07:00 03/26/24 07:30 Temperature 99.6 F Temperature Source Core Pulse Rate 91 H 109 H Pulse Rate [Left Radial] 110 H Respiratory Rate 18 22 14 Blood Pressure 138/83 150/88 H Blood Pressure [Right Arm] 133/67 Blood Pressure Mean [Right Arm] 89 Blood Pressure Source Blood Pressure Position 02 Sat by Pulse Oximetry 96 93 L 96 Oxygen Delivery Method Room Air Nasal Cannula Nasal Cannula Oxygen Flow Rate (LPM) 03/26/24 08:01 03/26/24 08:30 03/26/24 08:45 Temperature Temperature Source Pulse Rate 105 H 113 H 123 H Pulse Rate [Left Radial] Respiratory Rate 26 H 22 Blood Pressure 158/104 H 138/80 Blood Pressure [Right Arm] Blood Pressure Mean [Right Arm] Blood Pressure Source Blood Pressure Position 02 Sat by Pulse Oximetry 96 88 L 85 L Oxygen Delivery Method Room Air Room Air Room Air Oxygen Flow Rate (LPM) 03/26/24 08:49 03/26/24 09:01 03/26/24 09:35 Temperature 98.5 F Temperature Source Temporal Artery Scan Pulse Rate 110 H 96 H 100 H Pulse Rate [Left Radial] Respiratory Rate 21 18 18 Blood Pressure 135/78 120/70 144/90 H Blood Pressure [Right Arm] Blood Pressure Mean [Right Arm] Blood Pressure Source Automatic Cuff Blood Pressure Position Sitting 02 Sat by Pulse Oximetry 92 L 97 Oxygen Delivery Method Nasal Cannula Room Air Nasal Cannula Oxygen Flow Rate (LPM) 3 3 Lab Data Lab Results 03/26/24 04:50: WBC 4.3 L, RBC 4.52 L, Hgb 13.4 L, Hct 44.3, MCV 98.2 H, MCH 29.6, MCHC 30.1 L, RDW 14.9, Plt Count 138 L, MPV 8.0, Neut % (Auto) 59.1, Lymph % (Auto) 29.5, [place] % (Auto) 6.8, Eos % (Auto) 3.5, Baso % (Auto) 1.1, Neut # (Auto) 2.5, Lymph # (Auto) 1.3, [place] # (Auto) 0.3, Eos # (Auto) 0.2, Baso # (Auto) 0.1, Sodium 135 L, Potassium 4.7, Chloride 101, Carbon Dioxide 29, Anion Gap 9.7, BUN 23 H, Creatinine 1.10, Estimated Creat Clear 69, Estimated GFR 64, Est GFR ( Amer) 77, Glucose 180 H, Lactate 2.0, Calcium 8.6, Total Bilirubin 0.8, AST 28, ALT 25, Alkaline Phosphatase 68, Troponin I < 0.01, Total Protein 5.9 L, Albumin 3.6, Globulin 2.3, Albumin/Globulin Ratio 1.6, Chlamy pneumoniae PCR Not detected, Adenovirus (PCR) Not detected, B. pertussis DNA (PCR) Not detected, Coronavirus OC43 (PCR) Not detected, Coronavirus HKU1 (PCR) Not detected, Coronavirus 229E (PCR) Not detected, SARS-CoV-2 (PCR) Not detected, Coronavirus NL63 (PCR) Not detected, Human Metapneumovir PCR Not detected, Influenza A (H1) PCR Not detected, Influ A (H1N1/09) PCR Not detected, Influenza A (H3) PCR Not detected, Influenza Type A (PCR) Not detected, Influenza Type B (PCR) Not detected, M. pneumoniae (PCR) Not detected, Parainfluenza 1 (PCR) Not detected, Parainfluenza 2 (PCR) Not detected, Parainfluenza 3 (PCR) Not detected, Parainfluenza 4 (PCR) Not detected, RSV (PCR) Not detected, Entero/Rhino (PCR) Not detected 03/26/24 04:52: Urine Color Yellow, Urine Appearance Clear, Urine pH 7.0, Ur Specific Boring 1.020, Urine Protein Negative, Urine Glucose (UA) Negative, Urine Ketones Trace, Urine Blood Trace-l, Urine Nitrate Negative, Urine Bilirubin Negative, Urine Urobilinogen 0.2, Ur Leukocyte Esterase Negative, Urine RBC 5-10, Urine WBC Occasional, Ur Squamous Epith Cells 3-5, Urine Bacteria Trace, Urine Mucus Trace 03/26/24 07:50: Troponin I < 0.01 Orders (Tests/Meds): ED MEDICATIONS Generic Name Dose Route Start Last Admin Trade Name Freq PRN Reason Stop Dose Admin Acetaminophen 650 mg 03/26/24 09:44 Acetaminophen 325mg Tab PO 04/25/24 09:43 Q4HP PRN Fever or Mild Pain (1-3) Hydrocodone Bitart/Acetaminophen 1 tab 03/26/24 14:34 Hydrocodone 10mg/Apap 325mg Tab PO 04/25/24 14:33 QIDP PRN Moderate Pain (Scale Score 5-6) Alprazolam 0.5 mg 03/26/24 14:34 Alprazolam 0.5mg Tablet PO 04/25/24 14:33 BIDP PRN Anxiety Citalopram Hydrobromide 20 mg 03/27/24 09:00 Citalopram 20mg Tablet PO 04/26/24 08:59 DAILY ERIC Docusate Sodium 100 mg 03/27/24 09:00 Docusate Sodium 100 Mg Capsule PO 04/26/24 08:59 DAILY ERIC Donepezil HCl 10 mg 03/26/24 21:00 Donepezil 10mg Tab PO 04/25/24 20:59 HS ERIC Ferrous Sulfate 325 mg 03/27/24 09:00 Ferrous Sulfate 325mg Tablet PO 04/26/24 08:59 DAILY ERIC Finasteride 5 mg 03/27/24 09:00 Finasteride 5mg Tablet PO 04/26/24 08:59 DAILY ERIC Gabapentin 800 mg 03/26/24 21:00 Gabapentin 800mg Tablet PO 04/25/24 20:59 BID ERIC Insulin Glargine 16 unit 03/26/24 21:00 Insulin Glargine 100 Units/Ml 3ml Flexpen SQ 04/25/24 20:59 HS ERIC Magnesium Oxide 400 mg 03/26/24 21:00 Magnesium Oxide 400mg Tablet PO 04/25/24 20:59 BID ERIC Metformin HCl 1,000 mg 03/26/24 17:30 Metformin 500mg Tablet PO 04/25/24 17:29 BIDWMEAL ERIC Metoprolol Succinate 25 mg 03/26/24 21:00 Metoprolol Succinate Xl 25mg Tablet PO 04/25/24 20:59 BID ERIC Midodrine 5 mg 03/26/24 21:00 Midodrine Hcl 5 Mg Tablet PO 04/25/24 20:59 TID [facility] Ondansetron HCl 4 mg 03/26/24 09:44 Ondansetron 4mg/2ml Vial IV 04/25/24 09:43 Q8HP PRN Nausea Pantoprazole Sodium 40 mg 03/26/24 21:00 Pantoprazole 40mg Tablet PO 04/25/24 20:59 HS [facility] Promethazine HCl 12.5 mg 03/26/24 14:34 Promethazine 25mg Tablet PO 04/25/24 14:33 Q6HP PRN Nausea And Vomiting Rivaroxaban 20 mg 03/26/24 17:30 Rivaroxaban 10mg Tablet PO 04/25/24 17:29 QPMWITHMEAL [facility] Sodium Chloride 10 ml 03/26/24 05:59 03/26/24 06:02 Sodium Chloride 0.9% 10ml Syr (Rad Only) IV 04/25/24 05:58 10 ml NEEDED PRN Administration Maintain IV Site Tamsulosin HCl 0.4 mg 03/26/24 21:00 Tamsulosin 0.4mg Capsule PO 04/25/24 20:59 HS [facility] Discontinued Medications Generic Name Dose Route Start Last Admin Trade Name Freq PRN Reason Stop Dose Admin Lactated Ringer's 1,000 mls @ 999 mls/hr 03/26/24 04:22 03/26/24 05:00 Lactated Ringer's 1000 Ml Bag IV 03/26/24 05:22 999 mls/hr .Q1H1M ONE Administration Iopamidol 75 ml 03/26/24 05:59 03/26/24 06:01 Iopamidol-370 (76%);100ml Bottle IV 03/26/24 06:00 75 ml ONCE ONE Administration Metoprolol Succinate 25 mg 03/26/24 08:37 03/26/24 09:12 Metoprolol Succinate Xl 25mg Tablet PO 03/26/24 08:38 25 mg ONCE ONE Administration Metoprolol Tartrate 5 mg 03/26/24 06:41 03/26/24 06:45 Metoprolol Tartrate 5mg/5ml Vial IV 03/26/24 06:42 5 mg ONCE ONE Administration Naloxone HCl 0.4 mg 03/26/24 05:06 03/26/24 05:09 Naloxone 0.4mg/Ml Vial IV 03/26/24 05:07 Not Given ONCE ONE Naloxone HCl 0.4 mg 03/26/24 05:09 03/26/24 05:12 Naloxone 2mg/2ml Syringe IV 03/26/24 05:10 0.4 mg ONCE ONE Administration Ondansetron HCl 4 mg 03/26/24 04:23 03/26/24 05:00 Ondansetron 4mg/2ml Vial IV 03/26/24 04:24 4 mg ONCE ONE Administration Ondansetron HCl 4 mg 03/26/24 08:08 03/26/24 08:10 Ondansetron 4mg/2ml Vial IV 03/26/24 08:09 4 mg ONCE ONE Administration Prochlorperazine Edisylate 10 mg 03/26/24 06:39 03/26/24 06:45 Prochlorperazine 10mg/2ml Vial IV 03/26/24 06:40 10 mg ONCE ONE Administration ORDERS Category Date Time Status CT abdomen pelvis w con Stat Cat Scan 03/26/24 04:22 Completed CXR --portable [XR chest portable] Stat Exams 03/26/24 04:23 Completed CBC w/Auto Diff [Complete Blood Count Auto Diff] Stat Lab 03/26/24 04:50 Completed CMP [Comprehensive Metabolic Panel] Stat Lab 03/26/24 04:50 Completed Full Resp Panel w/COVID ([facility]) Routine Lab 03/26/24 04:50 Completed Lactic Acid Stat Lab 03/26/24 04:50 Completed Trop I [Troponin I] Stat Lab 03/26/24 04:50 Completed Troponin I Q3H Lab 03/26/24 07:50 Completed Troponin I Q3H Lab 03/26/24 10:45 Completed Urinalysis and Microscopic Stat Lab 03/26/24 04:52 Completed VBG [Venous Blood Gas] Stat RT 03/26/24 09:24 Completed ECG Request Stat Y 03/26/24 04:23 Ordered Medical Decision Narrative: In summary, this 84-year-old male presents to the emergency department today with concerns of generalized malaise, diffuse weakness, poor appetite, nausea, vomiting. On initial evaluation patient is tachycardic but otherwise hemodynamically stable, afebrile, GCS 15, no localizing neurodeficits, patient is diffusely weak requiring 3 person assist to ambulate from chair to bed, diffuse tenderness in the bilateral lower extremities as well as low back, no CVA tenderness, mild generalized abdominal tenderness without rebound or guarding, nonacute abdomen. Differential diagnosis includes but is not limited to viral syndrome, ACS, urinary tract infection, electrolyte abnormality, dehydration, kidney dysfunction, liver dysfunction, I considered possibility of DVT, however this is extremely unlikely given symptoms are equal bilaterally. Based on these concerns, I ordered viral swab, serum labs, cardiac workup, CT abdomen pelvis, urine studies. ECG personally interpreted demonstrates A-fib with RVR, left axis deviation, normal QTc, no STEMI. Patient received IV fluids, Zofran for treatment. As patient rested in his room, he fell asleep and had frequent apnea. He had extremely small pupils, though they were reactive to light. Review of his medications demonstrates benzos and opioids, concerning for respiratory depression from medication side effect. He had some any episodes of apnea and intermittent hypoxia that he received IV Narcan. After receiving this, he no longer had apneic episodes. I discussed this with patient's great?grandson at bedside who states the patient hoards his medication and no one helps administer medications to him. I recommended that medication administration be taken over by someone else in the family so that it is more clear how much of what medications patient is taking. and additional family members presented later in the encounter and corroborated this great-grandson's story identically. Labs personally reviewed demonstrate leukopenia, anemia, thrombocytopenia, mild prerenal azotemia, trace hyponatremia, initial troponin undetectably low at less than 0.01, UA negative for findings of infection. Patient received metoprolol for A-fib with RVR in an attempt to control his rate though he seems to be tolerating it well and is not hemodynamically unstable XR personally interpreted demonstrates no obvious lobar infiltrate, bibasilar atelectasis. Radiology read pending. CT imaging pending at this time. I anticipate this patient will require admission for debility, polypharmacy, symptoms of opioid overdose, however imaging results and respiratory panel are still pending. Patient handed off to Dr. Godinez at physician shift change for further management and disposition. Arvind Feliciano MD: I assumed care of this patient from the previous emergency medicine physician. Upon reassessment, patient continues to require supplemental oxygen, CT imaging and x-rays reveal no acute findings. I suspect patient's hypoxemia is secondary to respiratory depression associated with polypharmacy. No clear evidence at this time of any infectious precipitant nor historical or exam features suggestive of COPD. Patient will require admission for further treatment and workup. He was accepted for admission by hospitalist. Critical Care <Marco Campos MD - Last Filed: 03/26/24 07:04> Critical Care Time Critical Care Time: Yes Attestation: On 03/26/24, the high probability of a clinically significant, sudden or life threatening deterioration of the following system(s) (respiratory, cardiac) required my full and direct attention, intervention and personal management. The time I documented below is in addition to time spent performing reported procedures but includes the following listed in this critical care notation. Total Time Total Critical Care Time: 35
--- NOTE | 2024-03-26 04:27 | ECG_ITS ---
APPROVED REPORT Exam: Resting ECG HR:122 bpm ECG Measurements Heart Rate 122 AXES QRSd 101 QRS -86 QT 320 T 48 QTc 392 Conclusion ATRIAL FIBRILLATION WITH RAPID VENTRICULAR RESPONSE LEFT AXIS DEVIATION [QRS AXIS < -30] S1-S2-S3 PATTERN, CONSISTENT WITH PULMONARY DISEASE, RVH, OR NORMAL VARIANT INCOMPLETE RIGHT BUNDLE BRANCH BLOCK [90+ ms QRS DURATION, TERMINAL R IN V1/V2, 40+ ms S IN I/aVL/V4/V5/V6] POSSIBLE ANTERIOR MYOCARDIAL INFARCTION , OF INDETERMINATE AGE [30 ms Q WAVE IN V3/V4, OR R < 0.2 mV IN V4] No Stemi Electronically signed by : JANEL ANN, 03/26/2024 07:06:41
[2024-03-26] MEDS: ONDANSETRON 4MG/2ML VIAL 4 MG IV ×2 (05:00→08:10)
[2024-03-26] MEDS: LACTATED RINGERS 1000ML 1,000 ML 999 ML IV (05:00)
[2024-03-26] MEDS: NALOXONE 2MG/2ML SYRINGE 0.4 MG IV (05:12)
[2024-03-26 05:15] LABS: Microscopic, Urine URINE MICROSCOPIC (MICROSCOPIC)
[2024-03-26 05:15] LABS: Adenovirus,PCR Not Detected (NotDetected); Bordetella Pertussis Not Detected (NotDetected); Chlamydophila Pneumoniae, PCR Not Detected (NotDetected); Coronavirus 19, PCR Not Detected (NotDetected); Coronavirus 229E Not Detected (NotDetected); Coronavirus NL63 Not Detected (NotDetected); Coronavirus OC43 Not Detected (NotDetected); Coronovirus HKU1,PCR Not Detected (NotDetected); Human Metapneumovirus Not Detected (NotDetected); Influenza A, PCR Not Detected (NotDetected); Influenza AH1, 2009 Not Detected (NotDetected); Influenza AH1, PCR Not Detected (NotDetected); Influenza AH3,PCR Not Detected (NotDetected); Influenza B, PCR Not Detected (NotDetected); Mycoplasma Pneumoniae, PCR Not Detected (NotDetected); Parainfluenza 1, PCR Not Detected (NotDetected); Parainfluenza 2, PCR Not Detected (NotDetected); Parainfluenza 3, PCR Not Detected (NotDetected); Parainfluenza 4, PCR Not Detected (NotDetected); Respiratory Syncytial Virus Not Detected (NotDetected); Rhinovirus/Enterovirus Not Detected (NotDetected)
[2024-03-26 05:21] LABS: Appearance,Urine CLEAR (Clear); Bilirubin,Urine Negative (Negative); Blood, Urine TRACE-L (Negative); Color,Urine YELLOW (Yellow); Glucose,Urine (UA) Negative (Negative); Ketones,Urine TRACE (Negative); Leukocyte Esterase,Urine Negative (Negative); Nitrate,Urine Negative (Negative); Protein,Urine Negative (Negative); Urobilinogen,Urine 0.2 EU/dl (0.2)
[2024-03-26 05:21] LABS: Albumin Level 3.6 g/dl (3.5-5.0); Chloride 101 mmol/L (98-107)
[2024-03-26 05:22] LABS: Potassium 4.7 mmoL/L (3.5-5.1); Sodium 135 mmol/L (136-145)
[2024-03-26 05:24] LABS: Alanine Aminotransferase 25 U/L (12-78); Alkaline Phosphatase 68 U/L (38-126); Anion Gap 9.7 mEq/L (5-15); Aspartate Amino Transferase 28 U/L (17-59); Basophils # 0.1 K/mm3 (0-0.2); Basophils % 1.1 % (0.1-2.0); Bilirubin,Total 0.8 mg/dl (0.2-1.3); Blood Urea Nitrogen 23 mg/dl (9-20); Carbon Dioxide 29 mmol/L (22.0-30.0); Creatinine Clearance Estimated 69 mL/min (50-200); Eosinophils # 0.2 K/mm3 (0.0-0.4); Eosinophils % 3.5 % (0.1-12.0); Estimated Glomerular Filt Rate 64 ml/min (>60); GFR (African American) 77 ML/MIN (>60); Hematocrit 44.3 % (42.0-52.0); Hemoglobin 13.4 g/dL (14.1-18.0); Lymphocytes # 1.3 K/mm3 (0.7-4.5); Lymphocytes % 29.5 % (10-50); Mean Corpuscular HGB Conc 30.1 g/dL (31.8-35.4); Mean Corpuscular Hemoglobin 29.6 pg (27.0-31.2); Mean Corpuscular Volume 98.2 fl (80-94); Monocytes # 0.3 K/mm3 (0.1-1.0); Monocytes % 6.8 % (1.7-9.3); Neutrophils # 2.5 K/mm3 (1.8-7.8); Neutrophils % 59.1 % (37.0-80.0); Platelet Count 138 K/mm3 (142-424); Red Blood Count 4.52 M/mm3 (4.60-6.20); Red Cell Distribution Width 14.9 % (11.5-17.5); White Blood Count 4.3 K/mm3 (4.8-10.8)
[2024-03-26 05:25] LABS: Albumin/Globulin Ratio 1.6 (1.1-1.8); Calcium 8.6 mg/dl (8.4-10.2); Globulin 2.3 g/dL (1.3-3.2); Glucose 180 mg/dl (74-100); Total Protein,Serum 5.9 g/dl (6.3-8.2)
[2024-03-26 05:40] LABS: WBC,Urine Occasional #/hpf (0-3)
[2024-03-26 05:41] LABS: Bacteria,Urine Trace /lpf; Mucus,Urine Trace /lpf
[2024-03-26 05:41] LABS: Troponin I < 0.01 ng/ml (0.00-0.034)
[2024-03-26] MEDS: IOPAMIDOL-370 (76%);100ML BOTTLE 75 ML IV (06:01)
[2024-03-26] MEDS: SODIUM CHLORIDE 0.9% 10ML SYR (RAD ONLY) 10 ML IV (06:02)
[2024-03-26] MEDS: METOPROLOL TARTRATE 5MG/5ML VIAL 5 MG IV (06:45)
[2024-03-26] MEDS: PROCHLORPERAZINE 10MG/2ML VIAL 10 MG IV (06:45)
--- NOTE | 2024-03-26 07:24 | PC.NURSE ---
Called radiology to check status of ct & cxr reads. Kenyetta is going to chat with ad d/t it still showing assigned
[2024-03-26 08:28] LABS: Troponin I < 0.01 ng/ml (0.00-0.034)
--- NOTE | 2024-03-26 08:41 | PC.NURSE ---
Staff assisted pt up in bed and attempting PO challenge.
--- NOTE | 2024-03-26 08:49 | PC.NURSE ---
Had to place pt back on O2 d/t de-sat to 85% and maintaining. Dr. Feliciano aware
[2024-03-26] MEDS: METOPROLOL SUCCINATE XL 25MG TABLET 25 MG PO ×2 (09:12→20:51)
--- NOTE | 2024-03-26 09:13 | PC.NURSE ---
dr edouard speaking with dr harley for admission
--- NOTE | 2024-03-26 09:16 | PC.NURSE ---
DATA ANALYST ETL DEVELOPER NOTIFIED OF ADMISSION
--- NOTE | 2024-03-26 09:23 | PC.NURSE ---
called resp and let them know a green top was sent to lab for pt vbg
[2024-03-26 09:30] LABS: Lactate Venous 1.4 mmol/L (0.4-2.0); VBG Base Excess -1.3 mmol/L (-2.4-2.3); VBG HCO3 23.9 mmol/L (23-30); VBG Oxygen Saturation 96.4 % (50-70); VBG PCO2 41.7 mmol/L (35-51); VBG PH 7.38 mmol/L (7.31-7.41); VBG PO2 89.9 mmol/L (28-40); VBG Total CO2 25.2 mmol/L (23-27)
--- NOTE | 2024-03-26 09:34 | PC.NURSE ---
Called report to Sowmya Churchill RN on Med/Surg
--- NOTE | 2024-03-26 11:02 | HMH.PHAINT1 ---
Pharmacy Intervention Comments: MEDICATION RECONCILIATION COMPLETE USING LIST FROM RECENT HOSPITAL DISCHARGE AND EXTERNAL PHARMACY FILL HISTORY.
[2024-03-26 11:24] LABS: Troponin I < 0.01 ng/ml (0.00-0.034)
[2024-03-26 15:34] LABS: POC Glucose,Bedside 173 (70-110)
--- NOTE | 2024-03-26 16:51 | P.HP_ITS ---
History of Present Illness *Admission Date: 03/26/24 *Reason for visit:: generalized weakness *History of present illness: Patient is a 79-year-old male who presents to the hospital from home due to generalized weakness, decreased appetite. Patient's is at the bedside who mentions patient is requiring much effort to help with ADLs which made her bring patient to the hospital. Patient do not drive nausea vomiting generalized fatigue and weakness patient otherwise denied chest pain fevers diarrhea. Patient's mentions she is concerned about urinary tract infection. [facility] Disclaimer: The information contained in this section may have been updated after the patient was seen, as this information can be updated by other users. Medical History Abscess of lung Acute diverticulitis Arthritis Diabetes Afib Hypotension Abnormal electrocardiography Dyspnea Family History Other Family history of cancer Social History Smoking Status: Never smoker alcohol intake: never substance use type: denies use current occupational status: disabled Travel in the last 8 weeks: Inside the [place] household members: spouse and children housing: house Review of Systems Review of Systems Review of systems:: pertinent systems reviewed and negative unless documented below Meds Home Medications and Allergies Home Medications ?Medication ?Instructions ?Recorded ?Confirmed ?Type finasteride 5 mg tablet 5 mg PO DAILY 05/12/21 03/26/24 History metformin 1,000 mg tablet 1,000 mg PO BIDWMEAL 05/12/21 03/26/24 History donepezil 10 mg tablet 10 mg PO HS 03/26/22 03/26/24 History tamsulosin 0.4 mg capsule 0.4 mg PO HS 03/26/22 03/26/24 History rivaroxaban 20 mg tablet 20 mg PO QPMWITHMEAL 04/27/22 03/26/24 History esomeprazole magnesium 40 mg 40 mg PO DAILY 12/05/22 03/26/24 History capsule,delayed release insulin degludec 100 unit/mL (3 20 unit SQ DAILY 12/05/22 03/26/24 History mL) subcutaneous pen (Tresiba FlexTouch U-100 insulin) midodrine 5 mg tablet 5 mg PO TID 12/05/22 03/26/24 History citalopram 20 mg tablet 20 mg PO DAILY 11/27/23 03/26/24 History ferrous sulfate 325 mg (65 mg 325 mg PO DAILY 11/27/23 03/26/24 History iron) tablet (FeroSul) alprazolam 0.5 mg tablet 0.5 mg PO BIDP PRN Anxiety 10 days 11/29/23 03/26/24 Rx #20 tabs docusate sodium 100 mg capsule 100 mg PO DAILY 30 days #30 caps 11/29/23 03/26/24 Rx gabapentin 800 mg tablet 800 mg PO BID 10 days #20 tabs 11/29/23 03/26/24 Rx magnesium oxide 400 mg (241.3 mg 400 mg PO BID 30 days #60 tabs 11/29/23 03/26/24 Rx magnesium) tablet hydrocodone 10 mg-acetaminophen 1 tab PO QIDP PRN Moderate Pain 12/19/23 03/26/24 History 325 mg tablet (Scale Score 5-6) promethazine 25 mg tablet 12.5 mg PO Q6HP PRN Nausea And 12/19/23 03/26/24 History Vomiting metoprolol succinate 25 mg 25 mg PO BID 12/28/23 03/26/24 History tablet,extended release 24 hr New Prescriptions to Start Prescriptions: Allergies Allergy/AdvReac Type Severity Reaction Status Date / Time No Known Allergies Allergy Verified 02/10/24 13:58 Exam Data for Last 24 hours Vital signs and Labs for Last 24 Hours: Temp Pulse Resp BP Pulse Ox O2 Del Method O2 Flow Rate 98.8 F 91 H 18 110/62 90 L Room Air 1.5 03/26/24 15:23 03/26/24 15:23 03/26/24 15:23 03/26/24 15:23 03/26/24 15:03/26/24 15:03/26/24 12:00 Laboratory Results - last 24 hr 03/26/24 04:50: WBC 4.3 L, RBC 4.52 L, Hgb 13.4 L, Hct 44.3, MCV 98.2 H, MCH 29.6, MCHC 30.1 L, RDW 14.9, Plt Count 138 L, MPV 8.0, Neut % (Auto) 59.1, Lymph % (Auto) 29.5, [place] % (Auto) 6.8, Eos % (Auto) 3.5, Baso % (Auto) 1.1, Neut # (Auto) 2.5, Lymph # (Auto) 1.3, [place] # (Auto) 0.3, Eos # (Auto) 0.2, Baso # (Auto) 0.1, Sodium 135 L, Potassium 4.7, Chloride 101, Carbon Dioxide 29, Anion Gap 9.7, BUN 23 H, Creatinine 1.10, Estimated Creat Clear 69, Estimated GFR 64, Est GFR ( Amer) 77, Glucose 180 H, Lactate 2.0, Calcium 8.6, Total Bilirubin 0.8, AST 28, ALT 25, Alkaline Phosphatase 68, Troponin I < 0.01, Total Protein 5.9 L, Albumin 3.6, Globulin 2.3, Albumin/Globulin Ratio 1.6, Chlamy pneumoniae PCR Not detected, Adenovirus (PCR) Not detected, B. pertussis DNA (PCR) Not detected, Coronavirus OC43 (PCR) Not detected, Coronavirus HKU1 (PCR) Not detected, Coronavirus 229E (PCR) Not detected, SARS-CoV-2 (PCR) Not detected, Coronavirus NL63 (PCR) Not detected, Human Metapneumovir PCR Not detected, Influenza A (H1) PCR Not detected, Influ A (H1N1/09) PCR Not detected, Influenza A (H3) PCR Not detected, Influenza Type A (PCR) Not detected, Influenza Type B (PCR) Not detected, M. pneumoniae (PCR) Not detected, Parainfluenza 1 (PCR) Not detected, Parainfluenza 2 (PCR) Not detected, Parainfluenza 3 (PCR) Not detected, Parainfluenza 4 (PCR) Not detected, RSV (PCR) Not detected, Entero/Rhino (PCR) Not detected 03/26/24 04:52: Urine Color Yellow, Urine Appearance Clear, Urine pH 7.0, Ur Specific [place] 1.020, Urine Protein Negative, Urine Glucose (UA) Negative, Urine Ketones Trace, Urine Blood Trace-l, Urine Nitrate Negative, Urine Bilirubin Negative, Urine Urobilinogen 0.2, Ur Leukocyte Esterase Negative, Urine RBC 5-10, Urine WBC Occasional, Ur Squamous Epith Cells 3-5, Urine Bacteria Trace, Urine Mucus Trace 03/26/24 07:50: Troponin I < 0.01 03/26/24 09:24: VBG pH 7.38, VBG pCO2 41.7, VBG pO2 89.9 H, VBG HCO3 23.9, VBG Total CO2 25.2, VBG O2 Saturation 96.4 H, VBG Base Excess -1.3, VBG Lactic Acid 1.4 03/26/24 10:45: Troponin I < 0.01 03/26/24 15:23: POC Glucose 173 H I & O for Last 24 hours: Intake & Output 03/23/24 03/24/24 03/25/24 03/26/24 23:59 23:59 23:59 23:59 Intake Total 270 / 270 Output Total 200 / 200 Balance 70 / 70 Weight 101.179 kg Constitutional Constitutional: no acute distress *Routine HEENT Exam Head: Present normocephalic Eye: Present EOMI and PERRL ENT: Present mucous membranes moist *Routine Neck Exam Neck: Present supple; Absent lymphadenopathy *Routine Respiratory Exam Respiratory: Present CTA bilaterally *Routine Cardiovascular Exam Cardiovascular: Present RRR *Routine Abdominal Exam Abdominal: Present soft and normoactive bowel sounds; Absent tenderness *Routine Rectal Exam Rectal:: deferred *Routine Genitalia Exam Genitalia:: deferred *Routine Extremities Exam Extremities: Absent cyanosis, clubbing or edema *Routine Skin Exam Skin: Present warm; Absent rash *Routine Neurological Exam Neurological: Present alert and oriented X3 Assessment and Plan *Assessment and plan (1) Generalized weakness: Status: Acute Category: Medical Code(s): R53.1 - Weakness (2) UTI (urinary tract infection): Status: Acute Category: Medical Code(s): N39.0 - Urinary tract infection, site not specified (3) T2DM (type 2 diabetes mellitus): Status: Acute Qualifiers: Diabetes mellitus complication status: without complication Diabetes mellitus 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 insulin use: with senior care use Qualified Code(s): E11.9 - Type 2 diabetes mellitus without complications; Z79.4 - detention (current) use of insulin Category: Medical Code(s): E11.9 - Type 2 diabetes mellitus without complications (4) Chronic anticoagulation: Status: Acute Category: Medical Code(s): 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 Patient's is at the bedside who mentions patient is requiring much effort to help with ADLs which made her bring patient to the hospital. Patient do not drive nausea vomiting generalized fatigue and weakness patient otherwise denied chest pain fevers diarrhea. Patient's mentions she is concerned about urinary tract infection. Assessment and plan Generalized weakness secondary to cystitis Start IV Rocephin Follow-up on urine cultures UA not very suggestive of UTI, given patient's symptoms we will continue antibiotics Consult PT/OT diabetes mellitus Insulin sliding scale Atrial fibrillation Chronic anticoagulation Resume home Xarelto, DVT prophylaxis-on home Xarelto
[2024-03-26] MEDS: METFORMIN 500MG TABLET 1000 MG PO (18:10)
[2024-03-26] MEDS: RIVAROXABAN 10MG TABLET 20 MG PO (18:10)
[2024-03-26] MEDS: HYDROCODONE 10MG/APAP 325MG TAB 1 TAB PO (18:11)
--- NOTE | 2024-03-26 18:20 | PC.NURSE ---
pt is sitting up in bed. Family @ bedside. he reports increased pain in his back and hip. I medicated him per MAR. He is alert and mostly appropriate but has occasional confusion but is easily reoriented. He was able to ambulate to the bathroom with 1x assist.
[2024-03-26] MEDS: INSULIN GLARGINE 100 UNITS/ML 3ML FLEXPEN 16 UNIT SQ (20:50)
[2024-03-26] MEDS: GABAPENTIN 800MG TABLET 800 MG PO (20:51)
[2024-03-26] MEDS: DONEPEZIL 10MG TAB 10 MG PO (20:51)
[2024-03-26] MEDS: PANTOPRAZOLE 40MG TABLET 40 MG PO (20:51)
[2024-03-26] MEDS: TAMSULOSIN 0.4MG CAPSULE 0.4 MG PO (20:51)
[2024-03-26] MEDS: MIDODRINE HCL 5 MG TABLET PO (20:52)
[2024-03-26] MEDS: MAGNESIUM OXIDE 400MG TABLET 400 MG PO (20:52)
[2024-03-26 21:11] LABS: POC Glucose,Bedside 170 (70-110)
[2024-03-27] VITALS: BP 125/65; PULSE 86; RESP 18; TEMP 37.1; O2SAT 97
[2024-03-27 04:00] VITALS: BP 107/56; PULSE 80; PULSE 95; RESP 18; TEMP 36.7; O2SAT 95; BMI 31.6
[2024-03-27 06:10] LABS: POC Glucose,Bedside 130 (70-110)
--- NOTE | 2024-03-27 06:20 | PC.NURSE ---
Pt is alert and oriented x4 with rare moments of dementia. Pt began the shift on RA (90%) and later had to reapply 1.5 L for O2 needs (96%). Pt has slept for the most part of the shift and denies needs and pain. no acute changes to note at this time
[2024-03-27 06:30] LABS: Basophils % 0.7 % (0.1-2.0); Eosinophils # 0.1 K/mm3 (0.0-0.4); Eosinophils % 1.6 % (0.1-12.0); Hematocrit 41.5 % (42.0-52.0); Hemoglobin 12.8 g/dL (14.1-18.0); Lymphocytes # 1.9 K/mm3 (0.7-4.5); Lymphocytes % 42.4 % (10-50); Mean Corpuscular HGB Conc 30.9 g/dL (31.8-35.4); Mean Corpuscular Hemoglobin 30.1 pg (27.0-31.2); Mean Corpuscular Volume 97.5 fl (80-94); Mean Platelet Volume 8.1 fl (7.4-10.4); Monocytes # 0.3 K/mm3 (0.1-1.0); Monocytes % 6.3 % (1.7-9.3); Neutrophils # 2.2 K/mm3 (1.8-7.8); Platelet Count 149 K/mm3 (142-424); Red Blood Count 4.25 M/mm3 (4.60-6.20); Red Cell Distribution Width 14.8 % (11.5-17.5); White Blood Count 4.6 K/mm3 (4.8-10.8)
[2024-03-27 06:37] LABS: Blood Urea Nitrogen 18 mg/dl (9-20); Calcium 8.7 mg/dl (8.4-10.2); Carbon Dioxide 31 mmol/L (22.0-30.0); Chloride 101 mmol/L (98-107); Creatinine Clearance Estimated 77 mL/min (50-200); Estimated Glomerular Filt Rate 71 ml/min (>60); GFR (African American) 86 ML/MIN (>60); Glucose 126 mg/dl (74-100); Sodium 134 mmol/L (136-145)
[2024-03-27] MEDS: METFORMIN 500MG TABLET 1000 MG PO (06:50)
[2024-03-27 08:00] VITALS: BP 105/59; PULSE 80; PULSE 94; RESP 16; TEMP 36.8; O2SAT 95
--- NOTE | 2024-03-27 09:32 | HMH.PTEV ---
Physical Therapy Evaluation Rehab PT IP Evaluation Start: 03/27/24 07:54 Freq: ONCE Status: Active Protocol: Document 03/27/24 09:23 CODIE (Rec: 03/27/24 09:30 CODIE [id number]) Subjective/History History History Per H&P: Patient is a 79-year -old male who presents to the hospital from home due to generalized weakness, decreased appetite. Patient's is at the bedside who mentions patient is requiring much effort to help with ADLs which made her bring patient to the hospital. Patient do not drive nausea vomiting generalized fatigue and weakness patient otherwise denied chest pain fevers diarrhea. Patient's mentions she is concerned about urinary tract infection. Subjective Subjective Pt lives with his in single-story home with 4 DARREN ( w/ HRs). IND with ambulation using RW. Required some assistance with ADLs and bed mobility. Uses a hospital bed, w/c, RW, and shower chair. Pt 's daughter and grand-daughter at bedside and confirmed pt's history. New diagnosis of cancer in past 12 No months? Rehab PT IP Eval Objective Appearance Patient Behavior Appropriate Patient Orientation Person Difficulty following instructions none Speech Pattern Clear Ambulation Patient Able to Ambulate Yes Ambulation Observation IP General Gait Pattern Observation Wide Based Gait Ambulation Distance (feet) 30 Ambulation Assistive Device Rolling Walker Ambulation Ability Contact Guard/Hand Hold Balance Ability to Arise Able, uses arms to help Sitting Balance Steady, safe Standing Balance Steady, wide stance Transfers Bed Transfer Ability Minimal x 1 (25% assist) Sit to Stand Bed Transfer Ability Contact Guard/Hand Hold Rehab PT IP prob,goals,plan Problems Date of Evaluation: 03/27/24 PT IP Problems Bed Mobility,Transfers,Gait, Balance,Self care,Safety Rehab Potential Rehab Potential Good Equipment Needs Assistive Devices Rolling / Wheeled Walker Plan PT Intervention Plan Bed Mobility,Transfers,Gait, Balance,Self care,Safety, Therapeutic Exercise Other Intervention Plan 1-2 times PT Plan Frequency Daily Duration LOS Discharge Goals Bed Transfer Ability Contact Guard/Hand Hold Sit to Stand Chair Transfer Ability Supervision/Stand by Ambulation Assistive Device Rolling Walker Ambulation Distance (feet) 50 Discharge Plan PT Discharge Plan Initial physical therapy evaluation performed. Patient presents below baseline at this time in functional mobility, transfers, gait, and strength. Pt would benefit from skilled PT while at [facility] to prevent further functional decline and maximize safety with mobility. Pt safe to d/c home when deemed medically necessary d/t current level of mobility, home set-up, available equipment, and family support. PT recommending home health PT services to address deficits. Eval Complexity Eval Charge Codes 93907 - Moderate Complexity PHYSICIAN CERTIFICATION: I certify the specified therapy services for Boubacar Baxter are required, authorized, and reviewed every 30 days.
[2024-03-27] MEDS: METOPROLOL SUCCINATE XL 25MG TABLET 25 MG PO (09:40)
[2024-03-27] MEDS: FINASTERIDE 5MG TABLET 5 MG PO (09:40)
[2024-03-27] MEDS: MIDODRINE HCL 5 MG TABLET PO ×2 (09:40→13:12)
[2024-03-27] MEDS: DOCUSATE SODIUM 100 MG CAPSULE PO (09:41)
[2024-03-27] MEDS: MAGNESIUM OXIDE 400MG TABLET 400 MG PO (09:41)
[2024-03-27] MEDS: CITALOPRAM 20MG TABLET 20 MG PO (09:41)
[2024-03-27] MEDS: GABAPENTIN 800MG TABLET 800 MG PO (09:41)
[2024-03-27] MEDS: FERROUS SULFATE 325MG TABLET 325 MG PO (09:41)
--- NOTE | 2024-03-27 09:41 | HMH.OTEV ---
OT Inpatient Evaluation Rehab OT IP Evaluation Start: 03/27/24 07:54 Freq: ONCE Status: Active [facility] (Rec: 03/27/24 09:41 [facility] [id number]) Rehab OT IP Assessment Subjective History Pt oriented x 3 on arrival. Pt agreeable to engage in therapy evaluation. Pt admitted on 03/26/24 due to new oxygen requirement and functional decline. Per H&P: Patient is a 79-year -old male who presents to the hospital from home due to generalized weakness, decreased appetite. Patient's is at the bedside who mentions patient is requiring much effort to help with ADLs which made her bring patient to the hospital. Patient do not drive nausea vomiting generalized fatigue and weakness patient otherwise denied chest pain fevers diarrhea. Patient's mentions she is concerned about urinary tract infection. Subjective Pt lives with his in single-story home with 4 DARREN ( w/ HRs). IND with ambulation using RW. Required some assistance with ADLs and bed mobility. Uses a hospital bed, w/c, RW, and shower chair. Pt 's daughter and grand-daughter at bedside and confirmed pt's history. Objective Patient Orientation Person,Place,Birthday Right Upper Extremity Gross ROM WFL Left Upper Extremity Gross ROM WFL Bed Mobility bed mobility-scooting,bed mobility - supine/sit Assist Level Minimal x 1 (25% assist) Transfer Training Sit/Stand Transfer Assist Level Contact Guard/Hand Hold Chair Transfer Ability Contact Guard/Hand Hold Chair Transfer Technique Sit to/from Ambulatory Lower Body Dressing Ability Minimal Assistance Overall Commode/Toilet Transfer Ability Contact Guard Commode/Toilet Transfer Technique Sit to/from Ambulatory Rehab OT IP prob,goals,plan Problems Date of Evaluation: 03/27/24 OT IP Problems Bed Mobility,Transfers,Balance ,Self care,Safety Rehab Potential Rehab Potential Good Equipment Needs Assistive Devices Rolling / Wheeled Walker Plan OT intervention Plan Bed Mobility,Transfers,Balance ,Self care,Safety,Therapeutic Exercise OT Plan Frequency Daily Duration LOS Discharge Goals Bed Mobility Ability Standby Assistance Sit to Stand Chair Transfer Ability Contact Guard/Hand Hold Chair Transfer Ability Contact Guard/Hand Hold Chair Transfer Technique Sit to/from Ambulatory Chair Transfer Assistive Devices Rolling Walker Feeding Ability Assist with Tray Set Up Lower Body Dressing Ability Contact Guard Upper Body Dressing Ability Standby Assistance Bathing Ability Minimal Assistance Performing Toilet Hygiene Ability Minimal Assistance Overall Commode/Toilet Transfer Ability Standby Assistance,Contact Guard Commode/Toilet Transfer Technique Sit to/from Ambulatory Commode/Toilet Transfer Assistive Grab Bars Devices Oral Care Assist Contact Guard Discharge Plan OT Discharge Plan Initial occupational therapy evaluation performed. Patient presents below baseline at this time in functional mobility, transfers, ADL independence, and strength. Pt would benefit from skilled OT while at [facility] to prevent further functional decline and maximize safety. Pt safe to d /c home when deemed medically necessary d/t current level of mobility, home set-up, available equipment, and family support. OT recommending home health OT services to address deficits. Eval Complexity Eval Charge Codes 15673 - Moderate Complexity PHYSICIAN CERTIFICATION: I certify the specified therapy services for Boubacar Baxter are required, authorized, and reviewed every 30 days.
[2024-03-27 10:00] VITALS: O2SAT 88
--- NOTE | 2024-03-27 10:05 | CT_ITS ---
FINAL REPORT CLINICAL HISTORY: confusion COMPARISON: 11/26/2023 FINDINGS: Axial images of the head were obtained without contrast. Coronal reformatted images were also obtained. This study was performed with techniques to keep radiation doses as low as reasonably achievable (ALARA). Individualized dose reduction techniques using automated exposure control or adjustment of mA and/or kV according to the patient''s size were employed. There is generalized age-appropriate atrophy. Periventricular low-attenuation areas are seen consistent with mild chronic ischemic changes. There is no evidence of intracranial hemorrhage or mass. There is no evidence of acute infarct. There is no evidence of shift of the midline structures. No skull abnormality is seen on the bone window images. IMPRESSION: Stable atrophy and mild periventricular chronic ischemic changes. No acute intracranial abnormality identified. Reviewed, Interpreted and Dictated by Myke Nash III, MD Transcribed by Marie Malone Authenticated and [facility]
--- NOTE | 2024-03-27 10:08 | SW/DCPLANNER ---
Addendum entered by Kristen Harris 03/27/24 12:22: Per Barbara w/ [facility] services will start this week. Addendum entered by Kristen Harris 03/27/24 12:05: Due to staffing issues w/ [facility] patient information/order has been faxed to [facility]. Original Note: I spoke w/ this patient and his family regarding plans once medically stable for discharge. PT/OT evaluated patient and recommended home w/ home health services. Patient has used [facility] in the past and prefers to use this agency again. If [facility] is unable to accept patient then they do not have a preference. Patient/family prefer to use [facility] if home O2 is needed at time of discharge. Per MD patient will discharge home this afternoon.
[2024-03-27] MEDS: HYDROCODONE 10MG/APAP 325MG TAB 1 TAB PO (10:23)
[2024-03-27] MEDS: cefUROXime AXETIL 250MG TABLET 500 MG PO (10:23)
[2024-03-27 11:33] LABS: POC Glucose,Bedside 140 (70-110)
[2024-03-27 12:00] VITALS: BP 99/54; PULSE 77; PULSE 80; RESP 20; TEMP 36.8; O2SAT 93
--- NOTE | 2024-03-27 13:45 | P.DS_ITS ---
General Admission date:: 03/26/24 Discharge date: 03/27/24 HPI HPI HPI: Patient is a 79-year-old male who presents to the hospital from home due to generalized weakness, decreased appetite. Patient's is at the bedside who mentions patient is requiring much effort to help with ADLs which made her bring patient to the hospital. Patient do not drive nausea vomiting generalized fatigue and weakness patient otherwise denied chest pain fevers diarrhea. Patient's mentions she is concerned about urinary tract infection. Hospital Course Hospital Course Hospital Course: Patient is a 79-year-old male who presents to the hospital from home due to generalized weakness, decreased appetite. Patient's is at the bedside who mentions patient is requiring much effort to help with ADLs which made her bring patient to the hospital. Patient do not drive nausea vomiting generalized fatigue and weakness patient otherwise denied chest pain fevers diarrhea. Patient's mentions she is concerned about urinary tract infection. Patient did receive CT head which was unremarkable, patient was started on cefuroxime for UTI, and patient was evaluated by PT/OT who recommended home with home health Patient was found 88% on room air at rest and O2 supply was indicated, CXR is negative for acute pathology, patient family was counseled on spacing out home [place] and neurontin doses which could lead to confusion and somnolence. Patient and family agreed with the discharge plan and will be discharged home with family and home health. On the date of discharge, the patient reported feeling stable. The patient was found not to be in any acute distress, and no new abnormalities on physical examination. Further, the patient expressed appropriate understanding of, and agreement with, the discharge recommendations, medications, and plan. Time spent 37 mins Exam Data for Last 24 hours Vital signs and Labs for Last 24 Hours: Temp Pulse Resp BP Pulse Ox O2 Del Method O2 Flow Rate 98.2 F 80 16 105/59 L 88 L Room Air 2 03/27/24 08:00 03/27/24 12:00 03/27/24 08:00 03/27/24 08:00 03/27/24 10:00 03/27/24 10:00 03/27/24 08:00 Laboratory Results - last 24 hr 03/26/24 15:23: POC Glucose 173 H 03/26/24 20:50: POC Glucose 170 H 03/27/24 05:48: WBC 4.6 L, RBC 4.25 L, Hgb 12.8 L, Hct 41.5 L, MCV 97.5 H, MCH 30.1, MCHC 30.9 L, RDW 14.8, Plt Count 149, MPV 8.1, Neut % (Auto) 49.0, Lymph % (Auto) 42.4, [place] % (Auto) 6.3, Eos % (Auto) 1.6, Baso % (Auto) 0.7, Neut # (Auto) 2.2, Lymph # (Auto) 1.9, [place] # (Auto) 0.3, Eos # (Auto) 0.1, Baso # (Auto) 0.0, Sodium 134 L, Potassium 4.0, Chloride 101, Carbon Dioxide 31 H, Anion Gap 6.0, BUN 18, Creatinine 1.00, Estimated Creat Clear 77, Estimated GFR 71, Est GFR ( Amer) 86, Glucose 126 H, Calcium 8.7 03/27/24 06:02: POC Glucose 130 H 03/27/24 11:26: POC Glucose 140 H I & O for Last 24 hours: Intake & Output 03/24/24 03/25/24 03/26/24 03/27/24 23:59 23:59 23:59 23:59 Intake Total 540 / 660 660 / 660 Output Total 550 / 550 0 / 0 Balance - 660 / 660 Weight 101.179 kg 102.654 kg Constitutional Constitutional: no acute distress *Routine HEENT Exam Head: Present normocephalic Eye: Present EOMI and PERRL ENT: Present mucous membranes moist *Routine Neck Exam Neck: Present supple; Absent lymphadenopathy *Routine Respiratory Exam Respiratory: Present CTA bilaterally *Routine Cardiovascular Exam Cardiovascular: Present RRR *Routine Abdominal Exam Abdominal: Present soft and normoactive bowel sounds; Absent tenderness *Routine Extremities Exam Extremities: Absent cyanosis, clubbing or edema *Routine Skin Exam Skin: Present warm; Absent rash *Routine Neurological Exam Neurological: Present alert and oriented X3 Results Data Completed and Pending Labs on day of discharge: Labs from last 24 hours 03/27/24 03/27/24 03/27/24 11:26 06:02 05:48 WBC 4.6 L RBC 4.25 L Hgb 12.8 L Hct 41.5 L MCV 97.5 H MCH 30.1 MCHC 30.9 L RDW 14.8 Plt Count 149 MPV 8.1 Neut % (Auto) 49.0 Lymph % (Auto) 42.4 [place] % (Auto) 6.3 Eos % (Auto) 1.6 Baso % (Auto) 0.7 Neut # (Auto) 2.2 Lymph # (Auto) 1.9 [place] # (Auto) 0.3 Eos # (Auto) 0.1 Baso # (Auto) 0.0 Sodium 134 L Potassium 4.0 Chloride 101 Carbon Dioxide 31 H Anion Gap 6.0 BUN 18 Creatinine 1.00 Estimated Creat Clear 77 Estimated GFR 71 Est GFR ( Amer) 86 Glucose 126 H POC Glucose 140 H 130 H Calcium 8.7 03/26/24 03/26/24 20:50 15:23 WBC RBC Hgb Hct MCV MCH MCHC RDW Plt Count MPV Neut % (Auto) Lymph % (Auto) [place] % (Auto) Eos % (Auto) Baso % (Auto) Neut # (Auto) Lymph # (Auto) [place] # (Auto) Eos # (Auto) Baso # (Auto) Sodium Potassium Chloride Carbon Dioxide Anion Gap BUN Creatinine Estimated Creat Clear Estimated GFR Est GFR ( Amer) Glucose POC Glucose 170 H 173 H Calcium DS: Diagnosis Discharge Diagnosis (1) Generalized weakness: Status: Acute Code(s): R53.1 - Weakness (2) UTI (urinary tract infection): Status: Acute Code(s): N39.0 - Urinary tract infection, site not specified (3) T2DM (type 2 diabetes mellitus): Status: Acute Code(s): E11.9 - Type 2 diabetes mellitus without complications Qualifiers: Diabetes mellitus complication status: without complication Diabetes mellitus administration internship insulin use: with correction use Qualified Code(s): E11.9 - Type 2 diabetes mellitus without complications; Z79.4 - dining room hostess (current) use of insulin (4) Chronic anticoagulation: Status: Acute Code(s): Z79.01 - jail (current) use of anticoagulants (5) Atrial fibrillation: Status: Acute Code(s): I48.91 - Unspecified atrial fibrillation Meds Home Medications and Allergies Home Medications ?Medication ?Instructions ?Recorded ?Confirmed ?Type finasteride 5 mg tablet 5 mg PO DAILY 05/12/21 03/26/24 History metformin 1,000 mg tablet 1,000 mg PO BIDWMEAL 05/12/21 03/26/24 History donepezil 10 mg tablet 10 mg PO HS 03/26/22 03/26/24 History tamsulosin 0.4 mg capsule 0.4 mg PO HS 03/26/22 03/26/24 History rivaroxaban 20 mg tablet 20 mg PO QPMWITHMEAL 04/27/22 03/26/24 History esomeprazole magnesium 40 mg 40 mg PO DAILY 12/05/22 03/26/24 History capsule,delayed release insulin degludec 100 unit/mL (3 20 unit SQ DAILY 12/05/22 03/26/24 History mL) subcutaneous pen (Tresiba FlexTouch U-100 insulin) midodrine 5 mg tablet 5 mg PO TID 12/05/22 03/26/24 History citalopram 20 mg tablet 20 mg PO DAILY 11/27/23 03/26/24 History ferrous sulfate 325 mg (65 mg 325 mg PO DAILY 11/27/23 03/26/24 History iron) tablet (FeroSul) alprazolam 0.5 mg tablet 0.5 mg PO BIDP PRN Anxiety 10 days 11/29/23 03/26/24 Rx #20 tabs docusate sodium 100 mg capsule 100 mg PO DAILY 30 days #30 caps 11/29/23 03/26/24 Rx gabapentin 800 mg tablet 800 mg PO BID 10 days #20 tabs 11/29/23 03/26/24 Rx magnesium oxide 400 mg (241.3 mg 400 mg PO BID 30 days #60 tabs 11/29/23 03/26/24 Rx magnesium) tablet hydrocodone 10 mg-acetaminophen 1 tab PO QIDP PRN Moderate Pain 12/19/23 03/26/24 History 325 mg tablet (Scale Score 5-6) promethazine 25 mg tablet 12.5 mg PO Q6HP PRN Nausea And 12/19/23 03/26/24 History Vomiting metoprolol succinate 25 mg 25 mg PO BID 12/28/23 03/26/24 History tablet,extended release 24 hr cefuroxime axetil 250 mg tablet 500 mg (2 x 250 mg) PO BID 5 days 03/27/24 Rx #20 tabs New Prescriptions to Start Prescriptions: cefuroxime axetil Morris Sanabria Allergies Allergy/AdvReac Type Severity Reaction Status Date / Time No Known Allergies Allergy Verified 02/10/24 13:58 Discharge Plan Disposition Patient Disposition: Home Health Service Condition: Good Discharge Order Discharge Orders: Discharge Order (Routine); Ordered 03/27/24 Ordered By: Morris Sanabria Follow up Plan Follow up with: Chaparro Almanza [Primary Care Provider] - 04/04/24 3:00 pm Prescriptions/Medication Reconciliation: New cefuroxime axetil 250 mg Tablet 500 mg PO BID 5 Days Qty: 20 0RF Continued donepezil 10 MG tablet 10 mg PO HS tamsulosin 0.4 MG capsule 0.4 mg PO HS rivaroxaban 20 mg tablet 20 mg PO QPMWITHMEAL midodrine 5 mg tablet 5 mg PO TID esomeprazole magnesium 40 mg capsule,delayed release(DR/EC) 40 mg PO DAILY Patient Comments: TAKE 1 CAPSULE BY MOUTH ONCE DAILY insulin degludec [Tresiba FlexTouch U-100] 100 unit/mL (3 mL) insulin pen 20 unit SQ DAILY citalopram 20 mg tablet 20 mg PO DAILY Patient Comments: TAKE 1 TABLET BY MOUTH ONCE DAILY ferrous sulfate [FeroSul] 325 mg (65 mg iron) tablet 325 mg PO DAILY Patient Comments: TAKE 1 TABLET BY MOUTH ONCE DAILY magnesium oxide 400 mg (241.3 mg magnesium) Tablet 400 mg PO BID 30 Days Qty: 60 0RF docusate sodium 100 mg Capsule 100 mg PO DAILY 30 Days Qty: 30 0RF alprazolam 0.5 mg tablet 0.5 mg PO BIDP PRN (Reason: Anxiety) 10 Days Qty: 20 0RF gabapentin 800 MG tablet 800 mg PO BID 10 Days Qty: 20 0RF metformin 1,000 MG tablet 1,000 mg PO BIDWMEAL finasteride 5 MG tablet 5 mg PO DAILY hydrocodone-acetaminophen 10-325 mg tablet 1 tab PO QIDP PRN (Reason: Moderate Pain (Scale Score 5-6)) Patient Comments: TAKE 1 TABLET BY MOUTH 4 TIMES DAILY NEEDED FOR PAIN promethazine 25 mg tablet 12.5 mg PO Q6HP PRN (Reason: Nausea And Vomiting) Patient Comments: TAKE 1/2 (ONE-HALF) TABLET BY MOUTH EVERY 6 HOURS NEEDED FOR NAUSEA FOR 10 DAYS metoprolol succinate 25 mg tablet extended release 24 hr 25 mg PO BID Other Ambulatory Orders: Home Medical Equipment (Routine) Location: None Selected Ordered By: Morris Sanabria Problem Reconciliation Problems Reviewed?: Yes Patient Discharge Instructions ACTIVITY: Ambulate as tolerated DIET: continue same diet Patient Instructions: DI for Atrial Fibrillation, DI for Muscle Weakness Print Language: Cymro Providers Primary Care Provider: Chaparro Almanza Provider: Morris Sanabria Attending Provider: Morris Sanabria
--- NOTE | 2024-03-28 13:57 | CARE MANAGER ---
Contacted patient related to hospital discharge. He states he is doing better. He has new medication and is aware of follow up appointment. Denies questions or concerns. DEIDRE Colón
== END 2024-03-27 14:55 | disposition home health service (06) ==
LOC: ER 07:46 → 2ND 09:22
PROVIDERS: Emergency Medicine; Admitting Provider Internal Medicine; Emergency Provider Emergency Medicine; PCP Internal Medicine; Visit Provider Internal Medicine
DX: R53.1 Weakness (principal); N30.90 Cystitis, unspecified without hematuria; E11.9 Type 2 diabetes mellitus without complications; Z79.4 Long term (current) use of insulin; Z79.01 Long term (current) use of anticoagulants; I48.91 Unspecified atrial fibrillation; M19.90 Unspecified osteoarthritis, unspecified site; K57.90 Diverticulosis of intestine, part unspecified, without perforation or abscess without bleeding; Z79.899 Other long term (current) drug therapy
CPT/HCPCS: 36415; 70450; 71045; 74177; 80048; 80053; 81001; 82803; 82962; 83605; 84484; 85025; 87581; 87632; 87635; 87798; 93005; 97162; 97166; 97530; 99291; G0378; J0780; J2310; J2405; J7120; Q9967

== ENCOUNTER 2024-05-09 14:34 | Outpatient (CLI) | payer MEDICARE, SELFPAY ==
--- NOTE | 2024-05-09 14:39 | XR_ITS ---
FINAL REPORT CLINICAL HISTORY: left hip pain COMPARISON: 02/10/2024 FINDINGS: LEFT HIP: Two views of the left hip with an AP view of the pelvis demonstrate post ORIF changes in the left proximal femur. The hardware is stable. The lucency is noted in the intertrochanteric region which would suggest nonunion of the fracture. No new abnormality identified. No soft tissue abnormality is seen. IMPRESSION: No acute findings. 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 Reviewed, Interpreted and Dictated by Mohamud Holt MD Transcribed by Marie Malone Authenticated and [facility]
== END 2024-05-09 23:59 | disposition home or self-care (01) ==
LOC: RAD 14:36
PROVIDERS: PCP Internal Medicine; Visit Provider Orthopaedic Surgery
DX: M25.552 Pain in left hip (principal)
CPT/HCPCS: 73502

== ENCOUNTER 2024-10-26 14:30 | Outpatient (CLI) | payer MEDICARE, SELFPAY ==
--- NOTE | 2024-10-26 14:38 | XR_ITS ---
FINAL REPORT CLINICAL HISTORY: knee pain COMPARISON: None FINDINGS: RIGHT KNEE Three views demonstrate no acute fracture or dislocation. There is moderately to advanced joint space narrowing of the medial compartment and patellofemoral joints. There are moderate osteophytes along the undersurface of the patella. A small joint effusion is noted. No acute soft tissue abnormality is seen. 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 Reviewed, Interpreted and Dictated by Kuldeep Giang MD Transcribed by Betty Cline Authenticated and . [facility]
--- NOTE | 2024-10-26 14:38 | XR_ITS ---
FINAL REPORT CLINICAL HISTORY: knee pain COMPARISON: None FINDINGS: LEFT KNEE Three views demonstrate no acute fracture or dislocation. There is moderately advanced medial compartment joint space narrowing. There is subchondral sclerosis. There is narrowing of the patellofemoral joint with osteophytes along the undersurface of the patella. No acute soft tissue abnormality is seen. 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 Reviewed, Interpreted and Dictated by Kuldeep Giang MD Transcribed by Betty Cline Authenticated and [facility]
== END 2024-10-26 23:59 | disposition home or self-care (01) ==
PROVIDERS: PCP Internal Medicine; Visit Provider Physician Assistant Surgical
DX: M25.561 Pain in right knee (principal); M25.562 Pain in left knee
CPT/HCPCS: 73562

== ENCOUNTER 2024-11-02 09:15 | Outpatient (CLI) | payer MEDICARE, SELFPAY ==
--- NOTE | 2024-11-02 09:20 | XR_ITS ---
FINAL REPORT CLINICAL HISTORY: left shoulder pain FINDINGS: Two views show no evidence of acute displaced fracture or dislocation of the visualized bony architecture. There are moderate degenerative changes of the AC joint. There are mild degenerative changes of the glenohumeral joint. The bones are osteopenic. IMPRESSION: Degenerative changes as above. Reviewed, Interpreted and Dictated by Mohamud Holt MD Transcribed by Marisol Davis Authenticated and [facility]
== END 2024-11-02 23:59 | disposition home or self-care (01) ==
LOC: RAD 09:17
PROVIDERS: Visit Provider Physician Assistant Surgical
DX: M25.512 Pain in left shoulder (principal)
CPT/HCPCS: 73030

== ENCOUNTER 2024-11-24 13:32 | Outpatient (CLI) | payer MEDICARE, SELFPAY ==
--- OUTSIDE RECORDS SUMMARY | 2024-11-24 13:34 | XMS_ITS | Clinical Summary ---
Author Organization [facility] , [facility] Address [address] [place] [address] Phone Care Team Providers Care Piper Installer Name Role Phone Thomas PAYAN, Frederick Unavailable [phone] MARISSA HOFFMAN MD Unavailable [phone] BEKAH HOFFMAN MD Primary Care Provider [phone] Reason for Visit and Chief Complaint The Chief Complaint is: Bilateral Knee Pain Problems Includes: Problems addressed during this encounter and other active Problems All Visits Onset Date Resolved Date Provider Condition S tatus Joint Pain in Both Knees 03/29/2018 Frederick spear MD Active Last Documented On 8 12:47PM ; [facility] Plan of Treatment The risks of the procedure were explained verbally knowledge by the patient. Verbal consent was obtained. The right knee was prepped with Betadine and/or alcohol. Patient was given Orthovisc injection #3 to the right knee under sterile technique. The patient tolerated well and a Band-Aid was applied to the site afterwards. The risks of the procedure were explained verbally knowledge by the patient. Verbal consent was obtained. The left knee was prepped with Betadine and/or alcohol. Patient was given Orthovisc injection #3 to the left knee under sterile technique. The patient tolerated well and a Band-Aid was applied to the site afterwards. Patient was seen by myself Sukh Coffey PA-C. Follow up as needed - Last Documented On 04/27/2018 4:38PM ; [facility], [facility] Instructions to patient Instructions for patient to see pcp for wt and bp Last Documented On 8 1:50PM ; [facility], [facility] Assessments Includes: Assessments from this encounter Findings Bilateral knee arthritis. - Last Documented On 04/27/2018 4:38PM ; [facility], [facility] Instructions Includes: Instructions from this encounter Instructions to patient Instructions for patient to see pcp for wt and bp Last Documented On 8 1:50PM ; [facility], [facility] Medical Equipment - Implanted Devices Includes: Current Devices No Medical Equipment Recorded Medications Includes: Medications discussed during this encounter and other current Medications Current Medications (continue as prescribed) HYDROcodone-Acetaminophen 10 -325MG Oral Tablet 11/25/2018 Provider: BEKAH HOFFMAN MD Diagnosis: Last Documented On 9 12:43PM By Marie Hunter ; [facility], [facility] HYDROcodone-Acetaminophen 10 -325MG Oral Tablet 10/27/2018 Provider: BEKAH HOFFMAN MD Diagnosis: Last Documented On 9 12:43PM By Marie Hunter ; [facility], [facility] Pioglitazone HCl 45MG Oral Tablet 10/18/2018 Provide r: BEKAH HOFFMAN MD Diagnosis: Last Documented On 9 12:43PM By Marie Hunter ; [facility], [facility] HYDROcodone-Acetaminophen 10 -325MG Oral Tablet 09/29/2018 Provider: BEKAH HOFFMAN MD Diagnosis: Last Documented On 9 12:43PM By Mraie Hunter ; [facility], [facility] Ondansetron HCl 8MG Oral Tablet 09/16/2018 Provider: BEKAH HOFFMAN MD Diagnosis: Last Documented On 9 12:43PM By Marie Hunter ; [facility], [facility] Toujeo SoloStar 300UNIT/ML S ubcutaneous Solution Pen-injector 09/16/2018 Provider: BEKAH HOFFMAN MD Diagnosis: Last Documented On 9 12:43PM By Marie Hunter ; [facility], [facility] Januvia 100MG Oral Tablet 09/05/2018 Provider: ERLIN HOFFMAN MD Diagnosis: Last Documented On 9 12:44PM By Marie Hunter ; [facility], [facility] metFORMIN HCl 1000MG Oral Tablet 08/17/2018 Provider : BEKAH HOFFMAN MD Diagnosis: Last Documented On 9 12:44PM By Marie Hunter ; [facility], [facility] Gabapentin 800MG Oral Tablet 07/29/2018 Provider: BEKAH HOFFMAN MD Diagnosis: Last Documented On 9 12:44PM By Marie Hunter ; [facility], [facility] Hydrocodone-Acetaminophen 10 -325MG Oral Tablet 03/25/2018 Provider: BEKAH HOFFMAN MD Diagnosis: Last Documented On 8 12:47PM By Michelle Nath ; [facility], [facility] Touasa Nava SoloStar 300UNIT/ ML Subcutaneous Solution Pen-injector 03/23/2018 Provider: BEKAH HOFFMAN MD Diagnosis: Last Documented On 8 12:47PM By Michelle Nath ; [facility], [facility] Januvia 100MG Oral Tablet 03/07/2018 Provider: ERLIN HOFFMAN MD Diagnosis: Last Documented On 8 12:47PM By Michelle Nath ; [facility], [facility] Gabapentin 800MG Oral Tablet 01/24/2018 Provider: BEKAH HOFFMAN MD Diagnosis: Last Documented On 8 12:47PM By Michelle Nath ; [facility], [facility] Ondansetron HCl 4MG Oral Tablet 01/19/2018 Provider: Diagnosis: Last Documented On 8 12:47PM By Michelle Nath ; [facility], [facility] Past Medications on file Percocet 5-325MG Oral Tablet 12/09/2018 - 01/08/2019 Philly zavala: Travis Armas MD Diagnosis: 1-2 po q 4-6h prn for pain surgery 12/14/18 Last Documented On 9 11:32AM By Marie Velásquez ; [facility], [facility] Medications Administered Includes: Administered Medications from this encounter No Administered Medications Recorded Vital Signs Includes: Vital Signs from this encounter Vital Name 04/12/2018 01:48P Blood Pressure Sitting (mmHg) 136/52 Pulse Rate-Sitting (bpm) 73 Height (in) 71 Weight (lb) 260 Body Mass Index (kg/m2) 36.3 Body Surface Area (m2) 2.4 Note: kbg Last Documented: On 04/12/2018 1:49PM ; [facility], [facility] Results Includes: Results discussed during this encounter No Results Recorded For Specified Dates History of Present Illness Includes: History of Present Illness from this encounter MORGAN Baxter is a 78 year old male. - Medication list reviewed with patient. Patient is here today for the third Orthovisc injection to both knees. he has not seen any changes lower leg pain but he says this has helped his knees Social History Description Last Updated Alcohol use 04/05/2018 Last Documented On 8 1:45PM ; [facility], [facility] Caffeine use 04/05/2018 Last Documented On 8 1:45PM ; [facility], [facility] No recent change in diet 04/05/2018 Last Documented On 8 1:45PM ; [facility], [facility] No tobacco use 04/05/2018 Last Documented On 8 1:45PM ; [facility], [facility] Not a current smoker 04/05/2018 Last Documented On 8 1:45PM ; [facility], [facility] Not exercising regularly 04/05/2018 Last Documented On 8 1:45PM ; [facility], [facility] Not using drugs 04/05/2018 Last Documented On 8 1:45PM ; [facility], [facility] Smoking status : Former smoker 8 Last Documented On 8 1:45PM ; [facility], [facility] Procedures and Surgical History Includes: Procedures from this encounter Procedures Code Diagnosis Performing Provider Service L ocation Service Date Clinical summary provided to patient Last Documented On 8 1:45PM ; [facility], [facility] Surgical History Last Updated History of appendectomy 04/05/2018 Last Documented On 8 1:45PM ; [facility], [facility] Medical History Includes: Medical History addressed during this encounter Description Last Updated History of diabetes mellitus 04/05/2018 Last Documented On 8 1:45PM ; [facility], [facility] Family History Includes: Family History addressed during this encounter Description Last Updated No significant family history 04/05/2018 Last Documented On 8 1:45PM ; [facility], [facility] Review of Systems Includes: Review of Systems from this encounter Systemic: Not feeling tired (fatigue), no recent weight loss, and no recent weight gain. No edema. Head: No headache and no sinus pain. Eyes: No vision problems and no glaucomatous visual field defect. Otolaryngeal: No hearing loss and no tinnitus. No nasal symptoms. Cardiovascular: No chest pain or discomfort and no palpitations. Pulmonary: No daytime asthma symptoms, no cough, and no chronic cough. No wheezing. Gastrointestinal: No heartburn and no abdominal pain. Endocrine: No hot flashes and no muscle weakness. Hematologic: No easy bleeding and no tendency for easy bruising. Musculoskeletal: No lower back pain. No soft tissue swelling and no localized joint pain. Neurological: No dizziness, no convulsions, and no numbness. Psychological: No anxiety, no emotional lability, no depression, and no insomnia. Not crying for no reason. Skin: No dry skin, no rash, and no ulcers. Allergic and Immunologic: No complaint of seasonal allergic reaction. Mental Status Includes: Mental Status from this encounter Description No anxiety Functional Status Includes: Functional Status from this encounter No Functional Status Recorded Physical Exam Includes: Physical Exam from this encounter Allergies Includes: Active Allergies No Known Allergies Encounters Encounter Provider Location Date Check-In Time Check-Out Time Diagnosis Ortho Visc Frederick Guzman MD [facility] 8 1:44PM 2:04PM Insurance Includes: Active Insurance Policies Plan Name Member ID Group # Subscriber Relationship Effect natalie Dates 1 - [employer] MED[employer]ARE [id number] Boubacar Baxter Se lf Clinical Notes Includes: Clinical Notes from this encounter No Clinical Notes Recorded
--- OUTSIDE RECORDS SUMMARY | 2024-11-24 13:34 | XMS_ITS | Clinical Summary ---
Author Organization [facility] , [facility] Address [address] [place] [address] Phone Care Team Providers Care Credit Reference Clerk Name Role Phone Thomas PAYAN, Frederick Unavailable [phone] MARISSA HOFFMAN MD Unavailable [phone] BEKAH HOFFMAN MD Primary Care Provider [phone] Reason for Visit and Chief Complaint The Chief Complaint is: Bilateral Knee Pain Problems Includes: Problems addressed during this encounter and other active Problems Current Visit Onset Date Resolved Date Provider Marta mustafa Status Joint Pain in Both Knees 03/29/2018 Frederick spear MD Active Last Documented On 8 12:47PM ; [facility] Plan of Treatment Patient was seen by myself Sukh Coffey PA-C. They'll follow-up next week for the second orthovisc injections to both knees. We discussed options of cortisone injections Hyalgan injections and knee replacement he does not want to do a knee replacement at his age. Since he is diabetic and think the Hyalgan injections are a good option for him. We will set him up to do those today. The risks of the procedure were explained verbally knowledge by the patient. Verbal consent was obtained. The right knee was prepped with Betadine and/or alcohol. Patient was given Orthovisc injection #1 to the right knee under sterile technique. The patient tolerated well and a Band-Aid was applied to the site afterwards. The risks of the procedure were explained verbally knowledge by the patient. Verbal consent was obtained. The left knee was prepped with Betadine and/or alcohol. Patient was given Orthovisc injection #1 to the left knee under sterile technique. The patient tolerated well and a Band-Aid was applied to the site afterwards. - Last Documented On 04/08/2018 11:01AM ; [facility], [facility] Instructions to patient Instructions for patient Pat ient to see PCP for BP Last Documented On 8 12:50PM ; [facility] Lose weight Last Documented On 8 12:50PM ; [facility] Assessments Includes: Assessments from this encounter Findings Bilateral knee DJD - Last Documented On 04/08/2018 11:01AM ; [facility] Instructions Includes: Instructions from this encounter Instructions to patient Instructions for patient Pat ient to see PCP for BP Last Documented On 8 12:50PM ; [facility] Lose weight Last Documented On 8 12:50PM ; [facility], [facility] Medical Equipment - Implanted Devices Includes: Current Devices No Medical Equipment Recorded Medications Includes: Medications discussed during this encounter and other current Medications Current Medications (continue as prescribed) HYDROcodone-Acetaminophen 10 -325MG Oral Tablet 11/25/2018 Provider: BEKAH HOFFMAN MD Diagnosis: Last Documented On 9 12:43PM By Marie Hunter ; [facility], [facility] HYDROcodone-Acetaminophen 10 -325MG Oral Tablet 10/27/2018 Provider: BEKAH HOFFMAN MD Diagnosis: Last Documented On 9 12:43PM By Marie Hunter ; [facility], [facility] Pioglitazone HCl 45MG Oral Tablet 10/18/2018 Provide r: BEKAH HOFFMAN MD Diagnosis: Last Documented On 9 12:43PM By Marie Hunter ; [facility], [facility] HYDROcodone-Acetaminophen 10 -325MG Oral Tablet 09/29/2018 Provider: BEKAH HOFFMAN MD Diagnosis: Last Documented On 9 12:43PM By Marie Hunter ; [facility], [facility] Ondansetron HCl 8MG Oral Tablet 09/16/2018 Provider: BEKAH HOFFMAN MD Diagnosis: Last Documented On 9 12:43PM By Marie Hunter ; [facility], [facility] Toujeo SoloStar 300UNIT/ML S ubcutaneous Solution Pen-injector 09/16/2018 Provider: BEKAH HOFFMAN MD Diagnosis: Last Documented On 9 12:43PM By Marie Hunter ; [facility] Januvia 100MG Oral Tablet 09/05/2018 Provider: ERLIN HOFFMAN MD Diagnosis: Last Documented On 9 12:44PM By Marie Hunter ; [facility], [facility] metFORMIN HCl 1000MG Oral Tablet 08/17/2018 Provider : BEKAH HOFFMAN MD Diagnosis: Last Documented On 9 12:44PM By Marie Hunter ; [facility] Gabapentin 800MG Oral Tablet 07/29/2018 Provider: BEKAH HOFFMAN MD Diagnosis: Last Documented On 9 12:44PM By Marie Hunter ; [facility] Hydrocodone-Acetaminophen 10 -325MG Oral Tablet 03/25/2018 Provider: BEKAH HOFFMAN MD Diagnosis: Last Documented On 8 12:47PM By Michelle Nath ; [facility], [facility] Toujeo Max SoloStar 300UNIT/ ML Subcutaneous Solution Pen-injector 03/23/2018 Provider: BEKAH HOFFMAN MD Diagnosis: Last Documented On 8 12:47PM By Michelle Nath ; [facility], [facility] Januvia 100MG Oral Tablet 03/07/2018 Provider: ERLIN HOFFMAN MD Diagnosis: Last Documented On 8 12:47PM By Michelle Nath ; [facility], [facility] Gabapentin 800MG Oral Tablet 01/24/2018 Provider: BEKAH HOFFMAN MD Diagnosis: Last Documented On 8 12:47PM By Mihcelle Nath ; [facility], [facility] Ondansetron HCl 4MG Oral Tablet 01/19/2018 Provider: Diagnosis: Last Documented On 8 12:47PM By Michelle Nath ; [facility], [facility] Past Medications on file Percocet 5-325MG Oral Tablet 12/09/2018 - 01/08/2019 Philly zavala: Travis Armas MD Diagnosis: 1-2 po q 4-6h prn for pain surgery 12/14/18 Last Documented On 9 11:32AM By Marie Velásquez ; [facility], [facility] Medications Administered Includes: Administered Medications from this encounter No Administered Medications Recorded Vital Signs Includes: Vital Signs from this encounter Vital Name 03/29/2018 12:50P Blood Pressure Sitting (mmHg) 127/52 Pulse Rate-Sitting (bpm) 77 Height (in) 71 Weight (lb) 260 Body Mass Index (kg/m2) 36.3 Body Surface Area (m2) 2.4 Note: [facility] Last Documented: On 03/29/2018 12:54P M ; [facility], [facility] Results Includes: Results discussed during this encounter No Results Recorded For Specified Dates History of Present Illness Includes: History of Present Illness from this encounter HPI Boubacar Baxter is a 78 year old male. - Medication list reviewed with patient. - Sharp pain Symptoms - Pain is constant (100% of the time) - Pain is throbbing - Pain is dull, aching Please rate pain on scale of 1 - 10: 7 Previous Treatment NO Bilateral knee pain for years no surgery no treatment bars when he tries to walk or do any bending. He has not had any treatment for it in the past. Patient is diabetic. Social History Description Last Updated No tobacco use 03/29/2018 Last Documented On 8 11:01AM ; [facility], [facility] Smoking status : Former smoker 8 Last Documented On 8 11:01AM ; [facility], [facility] Alcohol use 03/29/2018 Last Documented On 8 11:01AM ; [facility], [facility] Caffeine use 03/29/2018 Last Documented On 8 11:01AM ; [facility], [facility] No recent change in diet 03/29/2018 Last Documented On 8 11:01AM ; [facility], [facility] Not a current smoker 03/29/2018 Last Documented On 8 11:01AM ; [facility], [facility] Not exercising regularly 03/29/2018 Last Documented On 8 11:01AM ; [facility], [facility] Not using drugs 03/29/2018 Last Documented On 8 11:01AM ; [facility], [facility] Procedures and Surgical History Includes: Procedures from this encounter Procedures Code Diagnosis Performing Provider Service L ocation Service Date Clinical summary provided to patient Last Documented On 8 12:50PM ; [facility], [facility] Surgical History Last Updated History of appendectomy 03/29/2018 Last Documented On 8 11:01AM ; [facility], [facility] Medical History Includes: Medical History addressed during this encounter Description Last Updated History of diabetes mellitus 03/29/2018 Last Documented On 8 11:01AM ; [facility] Family History Includes: Family History addressed during this encounter Description Last Updated No significant family history 03/29/2018 Last Documented On 8 11:01AM ; [facility] Review of Systems Includes: Review of Systems from this encounter Systemic: Not feeling tired (fatigue), no recent weight loss, and no recent weight gain. No edema. Head: No headache, no sinus pain, and no sinus pain. Eyes: No vision problems, no vision problems, and no glaucomatous visual field defect. Otolaryngeal: No hearing loss, no hearing loss, and no tinnitus. No nasal symptoms. Cardiovascular: No chest pain or discomfort, no chest pain or discomfort, and no palpitations. Pulmonary: No daytime asthma symptoms, no cough, and no chronic cough. No wheezing. Gastrointestinal: No heartburn, no heartburn, and no abdominal pain. Endocrine: No hot [...] Location Date Check-In Time Check-Out Time Diagnosis NEW PATIENT Frederick Guzman MD [facility] 03/29/20 18 12:09PM 1:27PM Insurance Includes: Active Insurance Policies Plan Name Member ID Group # Subscriber Relationship Effect natalie Dates 1 - [employer] [id number] Boubacar Baxter Se lf Clinical Notes Includes: Clinical Notes from this encounter No Clinical Notes Recorded
--- OUTSIDE RECORDS SUMMARY | 2024-11-24 13:34 | XMS_ITS | Clinical Summary ---
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 Armas. We will see him back as needed if he wants that at some point discussed removing of the hardware which we did discuss as an option for him but made no guarantees that the pain would be go away and come back to see us to do that he does not want to do a knee replacement presently. - Last Documented On 12/12/2018 8:32AM ; [facility], [facility] Instructions to patient Instructions for patient to see pcp for bp and wt Last Documented On 9 12:44PM ; [facility], [facility] Lose weight Last Documented On 9 12:44PM ; [facility], [facility] Assessments Includes: Assessments from this encounter Findings Right knee arthritis - Last Documented On 12/12/2018 8:32AM ; [facility], [facility] Painful right ankle hardware - Last Documented On 12/12/2018 8:32AM ; [facility], [facility] Instructions Includes: Instructions from this encounter Instructions to patient Instructions for patient to see pcp for bp and wt Last Documented On 9 12:44PM ; [facility], [facility] Lose weight Last Documented On 9 12:44PM ; [facility], [facility] Medical Equipment - Implanted Devices Includes: Current Devices No Medical Equipment Recorded Medications Includes: Medications discussed during this encounter and other current Medications Current Medications (continue as prescribed) HYDROcodone-Acetaminophen 10 -325MG Oral Tablet 11/25/2018 Provider: BEKAH HOFFMAN MD Diagnosis: Last Documented On 9 12:43PM By Marie Hunter ; [facility], [facility] HYDROcodone-Acetaminophen 10 -325MG Oral Tablet 10/27/2018 Provider: BEKAH HOFFMAN MD Diagnosis: Last Documented On 9 12:43PM By Marie Hunter ; [facility], [facility] Pioglitazone HCl 45MG Oral Tablet 10/18/2018 Provide r: BEKAH HOFFMAN MD Diagnosis: Last Documented On 9 12:43PM By Marie Hunter ; [facility], [facility] HYDROcodone-Acetaminophen 10 -325MG Oral Tablet 09/29/2018 Provider: BEKAH HOFFMAN MD Diagnosis: Last Documented On 9 12:43PM By Marie Hunter ; [facility], [facility] Ondansetron HCl 8MG Oral Tablet 09/16/2018 Provider: BEKAH HOFFMAN MD Diagnosis: Last Documented On 9 12:43PM By Marie Hunter ; [facility], [facility] Toujeo SoloStar 300UNIT/ML S ubcutaneous Solution Pen-injector 09/16/2018 Provider: BEKAH HOFFMAN MD Diagnosis: Last Documented On 9 12:43PM By Marie Hunter ; [facility], [facility] Januvia 100MG Oral Tablet 09/05/2018 Provider: ERLIN HOFFMAN MD Diagnosis: Last Documented On 9 12:44PM By Marie Hunter ; [facility], [facility] metFORMIN HCl 1000MG Oral Tablet 08/17/2018 Provider : BEKAH HOFFMAN MD Diagnosis: Last Documented On 9 12:44PM By Marie Hunter ; [facility], [facility] Gabapentin 800MG Oral Tablet 07/29/2018 Provider: BEKAH HOFFMAN MD Diagnosis: Last Documented On 9 12:44PM By Marie Hunter ; [facility], [facility] Hydrocodone-Acetaminophen 10 -325MG Oral Tablet 03/25/2018 Provider: BEKAH HOFFMAN MD Diagnosis: Last Documented On 8 12:47PM By Michelle Nath ; [facility], [facility] Touasa Nava SoloStar 300UNIT/ ML Subcutaneous Solution Pen-injector 03/23/2018 Provider: BEKAH HOFFMAN MD Diagnosis: Last Documented On 8 12:47PM By Michelle Nath ; [facility], [facility] Januvia 100MG Oral Tablet 03/07/2018 Provider: ERLIN HOFFMAN MD Diagnosis: Last Documented On 8 12:47PM By Michelle Nath ; [facility], [facility] Gabapentin 800MG Oral Tablet 01/24/2018 Provider: BEKAH HOFFMAN MD Diagnosis: Last Documented On 8 12:47PM By Michelle Nath ; [facility], [facility] Ondansetron HCl 4MG Oral Tablet 01/19/2018 Provider: Diagnosis: Last Documented On 8 12:47PM By Michelle Nath ; [facility], [facility] Past Medications on file Percocet 5-325MG Oral Tablet 12/09/2018 - 01/08/2019 Philly zavala: Travis Armas MD Diagnosis: 1-2 po q 4-6h prn for pain surgery 12/14/18 Last Documented On 9 11:32AM By Marie Velásquez ; [facility], [facility] Medications Administered Includes: Administered Medications from this encounter No Administered Medications Recorded Vital Signs Includes: Vital Signs from this encounter Vital Name 12/08/2018 12:45P Blood Pressure Sitting (mmHg) 130/90 Pulse Rate-Sitting (bpm) 85 Height (in) 71 Weight (lb) 260 Body Mass Index (kg/m2) 36.3 Body Surface Area (m2) 2.4 Note: aek Last Documented: On 12/08/2018 12:52P M ; [facility], [facility] Results Includes: Results discussed during this encounter No Results Recorded For Specified Dates History of Present Illness Includes: History of Present Illness from this encounter MORGAN Baxter is a 78 year old male. - Medication list reviewed with patient. Patient is here today to discuss right knee replacement however he is can change his mind and does not want to proceed with a knee replacement. Secondary complaint is some right ankle pain he had a previous side right ankle ORIF 25-30 years ago he says it bothers him when he tries to walk at times Social History Description Last Updated Alcohol use 04/05/2018 Last Documented On 9 12:44PM ; [facility], [facility] Caffeine use 04/05/2018 Last Documented On 9 12:44PM ; [facility], [facility] No recent change in diet 04/05/2018 Last Documented On 9 12:44PM ; [facility], [facility] No tobacco use 04/05/2018 Last Documented On 9 12:44PM ; [facility], [facility] Not a current smoker 04/05/2018 Last Documented On 9 12:44PM ; [facility], [facility] Not exercising regularly 04/05/2018 Last Documented On 9 12:44PM ; [facility], [facility] Not using drugs 04/05/2018 Last Documented On 9 12:44PM ; [facility], [facility] Smoking status : Former smoker 8 Last Documented On 9 12:44PM ; [facility], [facility] Procedures and Surgical History Includes: Procedures from this encounter Procedures Code Diagnosis Performing Provider Service L ocation Service Date Clinical summary provided to patient Last Documented On 9 12:44PM ; [facility], [facility] Surgical History Last Updated History of appendectomy 04/05/2018 Last Documented On 9 12:44PM ; [facility] Medical History Includes: Medical History addressed during this encounter Description Last Updated History of diabetes mellitus 04/05/2018 Last Documented On 9 12:44PM ; [facility], [facility] Family History Includes: Family History addressed during this encounter Description Last Updated No significant family history 04/05/2018 Last Documented On 9 12:44PM ; [facility], [facility] Review of Systems Includes: Review of [...] No lower back pain. No soft tissue swelling. Pain localized to one or more joints. Neurological: No dizziness, no convulsions, and no [...] Encounters Encounter Provider Location Date Check-In Time Check- Out Time Diagnosis Follow Up Travis Armas MD [facility] 9 12:41PM 1:55PM Insurance Includes: Active Insurance Policies Plan Name Member ID Group # Subscriber Relationship Effect natalie Dates 1 - [employer] MED[employer] [id number] Boubacar Baxter Se lf Clinical Notes Includes: Clinical Notes from this encounter No Clinical Notes Recorded
--- OUTSIDE RECORDS SUMMARY | 2024-11-24 13:34 | XMS_ITS | Clinical Summary ---
Author Organization [facility] , [facility] Address [address] [place] [address] Phone Care Team Providers Care Front End Driver Name Role Phone Thomas PAYAN, Frederick Unavailable [phone] MARISSA HOFFMAN MD Unavailable [phone] BEKAH HOFFMAN MD Primary Care Provider [phone] Reason for Visit and Chief Complaint The Chief Complaint is: Bilateral Knee Pain Problems Includes: Problems addressed during this encounter and other active Problems All Visits Onset Date Resolved Date Provider Condition S tatus Joint Pain in Both Knees 03/29/2018 Frederick spear MD Active Last Documented On 8 12:47PM ; [facility] Plan of Treatment Patient was seen by myself Sukh Coffey PA-C. They'll follow-up next week for the third injection to both knees The risks of the procedure were explained verbally knowledge by the patient. Verbal consent was obtained. The right knee was prepped with Betadine and/or alcohol. Patient was given Orthovisc injection #2 to the right knee under sterile technique. The patient tolerated well and a Band-Aid was applied to the site afterwards. The risks of the procedure were explained verbally knowledge by the patient. Verbal consent was obtained. The left knee was prepped with Betadine and/or alcohol. Patient was given Orthovisc injection #2 to the left knee under sterile technique. The patient tolerated well and a Band-Aid was applied to the site afterwards. - Last Documented On 05/20/2018 10:02AM ; [facility] Assessments Includes: Assessments from this encounter Findings Bilateral knee arthritis. - Last Documented On 05/20/2018 10:02AM ; [facility] Medical Equipment - Implanted Devices Includes: Current Devices No Medical Equipment Recorded Medications Includes: Medications discussed during this encounter and other current Medications Current Medications (continue as prescribed) HYDROcodone-Acetaminophen 10 -325MG Oral Tablet 11/25/2018 Provider: BEKAH HOFFMAN MD Diagnosis: Last Documented On 9 12:43PM By Marie Hunter ; [facility] HYDROcodone-Acetaminophen 10 -325MG Oral Tablet 10/27/2018 Provider: BEKAH HOFFMAN MD Diagnosis: Last Documented On 9 12:43PM By Marie Hunter ; [facility] Pioglitazone HCl 45MG Oral Tablet 10/18/2018 Provide r: BEKAH HOFFMAN MD Diagnosis: Last Documented On 9 12:43PM By Marie Hunter ; [facility] HYDROcodone-Acetaminophen 10 -325MG Oral Tablet 09/29/2018 Provider: BEKAH HOFFMAN MD Diagnosis: Last Documented On 9 12:43PM By Marie Hunter ; [facility] Ondansetron HCl 8MG Oral Tablet 09/16/2018 Provider: BEKAH HOFFMAN MD Diagnosis: Last Documented On 9 12:43PM By Marie Hunter ; [facility] Toujeo SoloStar 300UNIT/ML S ubcutaneous Solution Pen-injector 09/16/2018 Provider: BEKAH HOFFMAN MD Diagnosis: Last Documented On 9 12:43PM By Marie Hunter ; [facility] Januvia 100MG Oral Tablet 09/05/2018 Provider: ERLIN HOFFMAN MD Diagnosis: Last Documented On 9 12:44PM By Marie Hunter ; [facility] metFORMIN HCl 1000MG Oral Tablet 08/17/2018 Provider : BEKAH HOFFMAN MD Diagnosis: Last Documented On 9 12:44PM By Marie Hunter ; [facility] Gabapentin 800MG Oral Tablet 07/29/2018 Provider: BEKAH HOFFMAN MD Diagnosis: Last Documented On 9 12:44PM By Marie Hunter ; [facility] Hydrocodone-Acetaminophen 10 -325MG Oral Tablet 03/25/2018 Provider: BEKAH HOFFMAN MD Diagnosis: Last Documented On 8 12:47PM By Michelle Nath ; [facility] Toujeo Max SoloStar 300UNIT/ ML Subcutaneous Solution Pen-injector 03/23/2018 Provider: BEKAH HOFFMAN MD Diagnosis: Last Documented On 8 12:47PM By Michelle Nath ; [facility] Januvia 100MG Oral Tablet 03/07/2018 Provider: ERLIN HOFFMAN MD Diagnosis: Last Documented On 8 12:47PM By Michelle Nath ; [facility] Gabapentin 800MG Oral Tablet 01/24/2018 Provider: BEKAH HOFFMAN MD Diagnosis: Last Documented On 8 12:47PM By Michelle Nath ; [facility], [facility] Ondansetron HCl 4MG Oral Tablet 01/19/2018 Provider: Diagnosis: Last Documented On 8 12:47PM By Michelle Nath ; [facility] Past Medications on file Percocet 5-325MG Oral Tablet 12/09/2018 - 01/08/2019 Philly zavala: Travis Armas MD Diagnosis: 1-2 po q 4-6h prn for pain surgery 12/14/18 Last Documented On 9 11:32AM By Marie Velásquez ; [facility] Medications Administered Includes: Administered Medications from this encounter No Administered Medications Recorded Vital Signs Includes: Vital Signs from this encounter Vital Name 04/05/2018 01:11P Blood Pressure Sitting (mmHg) 122/61 Pulse Rate-Sitting (bpm) 80 Height (in) 71 Weight (lb) 260 Body Mass Index (kg/m2) 36.3 Body Surface Area (m2) 2.4 Note: MIRIAN Last Documented: On 04/05/2018 1:11PM ; [facility] Results Includes: Results discussed during this encounter No Results Recorded For Specified Dates History of Present Illness Includes: History of Present Illness from this encounter MORGAN Baxter is a 78 year old male. - Medication list reviewed with patient. Patient is here today for the second Orthovisc injection to both knees. He has no new complaints he said the first one did help for a day or so. Social History Description Last Updated Alcohol use 04/05/2018 Last Documented On 8 10:02AM ; [facility] Caffeine use 04/05/2018 Last Documented On 8 10:02AM ; [facility] No recent change in diet 04/05/2018 Last Documented On 8 10:02AM ; [facility], [facility] No tobacco use 04/05/2018 Last Documented On 8 10:02AM ; [facility], [facility] Not a current smoker 04/05/2018 Last Documented On 8 10:02AM ; [facility], [facility] Not exercising regularly 04/05/2018 Last Documented On 8 10:02AM ; [facility] Not using drugs 04/05/2018 Last Documented On 8 10:02AM ; [facility], [facility] Smoking status : Former smoker 8 Last Documented On 8 10:02AM ; [facility], [facility] Procedures and Surgical History Surgical History Last Updated History of appendectomy 04/05/2018 Last Documented On 8 10:02AM ; [facility], [facility] Medical History Includes: Medical History addressed during this encounter Description Last Updated History of diabetes mellitus 04/05/2018 Last Documented On 8 10:02AM ; [facility] Family History Includes: Family History addressed during this encounter Description Last Updated No significant family history 04/05/2018 Last Documented On 8 10:02AM ; [facility] Review of Systems Includes: Review [...] Time Diagnosis Ortho Visc Frederick Guzman MD [facility] 8 1:06PM 1:17PM Insurance Includes: Active Insurance Policies Plan Name Member ID Group # Subscriber Relationship Effect natalie Dates 1 - [employer] MED[employer] [id number] Boubacar Baxter Se lf Clinical Notes Includes: Clinical Notes from this encounter No Clinical Notes Recorded
--- OUTSIDE RECORDS SUMMARY | 2024-11-24 13:34 | XMS_ITS ---
Author Organization [facility] Address [address] [place] [address] Phone Care Team Providers Care Die Technician Name Role Phone Thomas PAYAN, Frederick Unavailable [phone] MARISSA HOFFMAN MD Unavailable [phone] BEKAH HOFFMAN MD Primary Care Provider [phone] Problems Includes: Active, inactive, and resolved Problems All Visits Onset Date Resolved Date Provider Condition S tatus Joint Pain in Both Knees 03/29/2018 Frederick spear MD Active Last Documented On 8 12:47PM ; [facility] Plan of Treatment Instructions to patient Instructions for patient to see pcp for bp and wt Last Documented On 9 12:44PM ; [facility] Lose weight Last Documented On 9 12:44PM ; [facility] Instructions for patient to see pcp for bp and wt Last Documented On 9 1:33PM ; [facility] Lose weight Last Documented On 9 1:33PM ; [facility] Instructions for patient to see pcp for wt and bp Last Documented On 8 1:50PM ; [facility] Instructions for patient Pat ient to see PCP for BP Last Documented On 8 12:50PM ; [facility] Lose weight Last Documented On 8 12:50PM ; [facility] Assessments Includes: Assessments for all patient encounters No Assessments Recorded Instructions Includes: Instructions for all patient encounters Instructions to patient Instructions for patient to see pcp for bp and wt Last Documented On 9 12:44PM ; [facility] Lose weight Last Documented On 9 12:44PM ; [facility] Instructions for patient to see pcp for bp and wt Last Documented On 9 1:33PM ; [facility] Lose weight Last Documented On 9 1:33PM ; [facility] Instructions for patient to see pcp for wt and bp Last Documented On 8 1:50PM ; [facility] Instructions for patient Pat ient to see PCP for BP Last Documented On 8 12:50PM ; [facility] Lose weight Last Documented On 8 12:50PM ; [facility] Medical Equipment - Implanted Devices Includes: Current and historical Devices No Medical Equipment Recorded Medications Includes: Current and historical Medications Current Medications (continue as prescribed) HYDROcodone-Acetaminophen 10 -325MG Oral Tablet 11/25/2018 Provider: BEKAH HOFFMAN MD Diagnosis: Last Documented On 9 12:43PM By Marie Hunter ; [facility] HYDROcodone-Acetaminophen 10 -325MG Oral Tablet 10/27/2018 Provider: BEKAH HOFFMAN MD Diagnosis: Last Documented On 9 12:43PM By Marie Hunter ; [facility] Pioglitazone HCl 45MG Oral Tablet 10/18/2018 Provide r: BEKAH HOFFMAN MD Diagnosis: Last Documented On 9 12:43PM By Marie Hunter ; [facility] HYDROcodone-Acetaminophen 10 -325MG Oral Tablet 09/29/2018 Provider: BEKAH HOFFMAN MD Diagnosis: Last Documented On 9 12:43PM By Marie Hunter ; [facility] Ondansetron HCl 8MG Oral Tablet 09/16/2018 Provider: BEKAH HOFFMAN MD Diagnosis: Last Documented On 9 12:43PM By Marie Hunter ; [facility] Toujeo SoloStar 300UNIT/ML S ubcutaneous Solution Pen-injector 09/16/2018 Provider: BEKAH HOFFMAN MD Diagnosis: Last Documented On 9 12:43PM By Marie Hunter ; [facility] Januvia 100MG Oral Tablet 09/05/2018 Provider: ERLIN HOFFMAN MD Diagnosis: Last Documented On 9 12:44PM By Marie Hunter ; [facility] metFORMIN HCl 1000MG Oral Tablet 08/17/2018 Provider : BEKAH HOFFMAN MD Diagnosis: Last Documented On 9 12:44PM By Marie Hunter ; [facility] Gabapentin 800MG Oral Tablet 07/29/2018 Provider: BEKAH HOFFMAN MD Diagnosis: Last Documented On 9 12:44PM By Marie Hunter ; [facility] Hydrocodone-Acetaminophen 10 -325MG Oral Tablet 03/25/2018 Provider: BEKAH HOFFMAN MD Diagnosis: Last Documented On 8 12:47PM By Michelle Nath ; [facility] Toujeo Max SoloStar 300UNIT/ ML Subcutaneous Solution Pen-injector 03/23/2018 Provider: BEKAH HOFFMAN MD Diagnosis: Last Documented On 8 12:47PM By Michelle Nath ; [facility] Januvia 100MG Oral Tablet 03/07/2018 Provider: ERLIN HOFFMAN MD Diagnosis: Last Documented On 8 12:47PM By Michelle Nath ; [facility] Gabapentin 800MG Oral Tablet 01/24/2018 Provider: BEKAH HOFFMAN MD Diagnosis: Last Documented On 8 12:47PM By Michelle Nath ; [facility] Ondansetron HCl 4MG Oral Tablet 01/19/2018 Provider: Diagnosis: Last Documented On 8 12:47PM By Michelle Nath ; [facility] Past Medications on file Percocet 5-325MG Oral Tablet 12/09/2018 - 01/08/2019 Philly zavala: Travis Armas MD Diagnosis: 1-2 po q 4-6h prn for pain surgery 12/14/18 Last Documented On 9 11:32AM By Marie Velásquez ; [facility] Medications Administered Includes: Administered Medications in patient's chart No Administered Medications Recorded Results Includes: Results from 11/25/2023 through 11/24/2024 No Results Recorded For Specified Dates History of Present Illness History of Present Illness not supported for this document type No History of Present Illness Recorded Social History Description Last Updated Alcohol use 04/05/2018 Last Documented On 8 10:02AM ; [facility] Caffeine use 04/05/2018 Last Documented On 8 10:02AM ; [facility] No recent change in diet 04/05/2018 Last Documented On 8 10:02AM ; [facility] No tobacco use 04/05/2018 Last Documented On 8 10:02AM ; [facility] Not a current smoker 04/05/2018 Last Documented On 8 10:02AM ; [facility] Not exercising regularly 04/05/2018 Last Documented On 8 10:02AM ; [facility] Not using drugs 04/05/2018 Last Documented On 8 10:02AM ; [facility] Smoking status : Former smoker 8 Last Documented On 8 10:02AM ; [facility] Procedures and Surgical History Surgical History Last Updated History of appendectomy 04/05/2018 Last Documented On 8 10:02AM ; [facility] Medical History Includes: Medical History in patient's chart Description Last Updated History of diabetes mellitus 04/05/2018 Last Documented On 8 10:02AM ; [facility] Family History Includes: Family History in patient's chart Description Last Updated No significant family history 04/05/2018 Last Documented On 8 10:02AM ; [facility] Review of Systems Review of Systems not supported for this document type No Review of Systems Recorded Mental Status Description No anxiety Functional Status No Functional Status Recorded Physical Exam Physical Exam not supported for this document type No Physical Exam Recorded Allergies Includes: Active, inactive, and resolved Allergies No Known Allergies Insurance Includes: Active Insurance Policies Plan Name Member ID Group # Subscriber Relationship Effect natalie Dates 1 - [employer] MED[employer]ARE [id number] [facility] [facility] Clinical Notes Includes: Signed Clinical Notes starting from 07/30/2022 No Clinical Notes Recorded
--- OUTSIDE RECORDS SUMMARY | 2024-11-24 13:34 | XMS_ITS | Continuity of Care Document ---
Author Organization [facility] Phone Care Team Providers Care Apprentice Cosmetologist Name Role Phone BEKAH ALMANZA Admitting Unavailable BEKAH ALMANZA Primary Care [email or web address] BEKAH ALMANZA Primary Attending Unavailable ALLERGIES AND ADVERSE REACTIONS ALLERGIES AND ADVERSE REACTIONS Code System Allergy Substance Adverse Reaction Date Reaction (Severity) Comment Status Reported By Updated By 2670 RXNorm Codeine Adverse reaction to substance Not Specified active [id number] on January 12, 2024 5:56:12 PM [facility] 7984 RXNorm PENICILLIN Rash (Moderate) active [id number] on January 12, 2024 6:09:42 PM [facility] FAMILY HISTORY RELATION: Father Status: Cause of : Unknown Age at : Unknown SNOMED-CT Diagnosis Age At Onset Information not available RELATION: Mother Status: Cause of : Unknown Age at : Unknown SNOMED-CT Diagnosis Age At Onset Information not available RESULTS Patient: CHARLES Gómez Date of : 1940 LABORATORY RESULTS Information is not available LABORATORY NARRATIVE RESULTS Information is not available RADIOLOGY RESULTS ORDER 100: SHOULDER COMP MIN 2 VWS LT (LOINC: 03767-1) ORDER DATE: September 19, 2024 9:36:00 PM [facility] PERFORMING LAB: [address] [id number] Final Result Date: September 19, 2024 9:48:[address] [address] Name: ANN SOTO Exam Date: 09/19/2024 : 1940 Age 84 years Gender: M Physician: Bekah Almanza Facility: [facility] Facility HSV: Outpatient Exam: SHOULDER COMP MIN 2 VWS LT XR SHOULDER 2 OR MORE VIEWS LEFT REASON FOR STUDY: PAIN PATIENT DEMOGRAPHICS:84 years, Male DATE OF SERVICE: 09/19/2024 3:48 PM ATTENUATOR COMPARISON: No existing relevant imaging study corresponding to the same anatomical region is available. Multiple routine views in various projections of the left shoulder including the bones, joints and adjacent soft tissues were obtained. No fracture is seen. No dislocation is seen. IMPRESSION: Unremarkable Shoulder Radiograph Electronically signed by: Eze Hussein MD 09/20/2024 02:03 PM [facility] Dictated By: Eze Hussein Transcribed By: Transcribed On: 09/19/2024 4:48 PM Electronically signed by: Eze Hussein 09/19/2024 Thank you for referring CHARLES ANN to [facility]. Legally authenticated by JOSY NGUYEN 2024-09-19 16:48:03 PATHOLOGY NARRATIVE RESULTS Information is not available MICROBIOLOGY RESULTS No Micro Labs/Results Exist for Patient BLOOD ADMIN RESULTS Information is not available MEDICATIONS HOME MEDICATIONS Status RXNORM NDC Medication Dose Route Frequency Dates Comments Reported By Updated By Drug Treatment Unknown DISCHARGE MEDICATIONS Status RXNORM NDC Medication Dose Route Frequency Dates Comments Physician Updated By No Discharge Medication Info rmation Available INPATIENT MEDICATIONS Status RXNORM NDC Medication Dose Route Frequency Rat e Quantity Dates Comments Physician Updated By No Inpatient Medication Info rmation Available SOCIAL HISTORY SOCIAL HISTORY SNOMED-CT Social History Element Description Effective Dates Offered Cessation Comment UpdatedBy [id number] Historical Tobacco smoking status Former Smoker quit 20 years ago [id number] on January 14, 2024 1:53:04 PM [facility] SOCIAL HISTORY - Gender Sex: Male SOCIAL HISTORY - Status : status i nformation is not available Intention in Next Year: intention information is not available SOCIAL HISTORY - Sexual Behavior Sexual Orientation Gender Identity SNOMED-CT Description SNO MED -CT Description Activity Level No of Partners Partner Type UpdatedBy Information is not available HEALTH CONCERNS Problems Concern Status Health Concern problem infor mation not available. Smoking Status Status Years Used Consumed packs p er day Health Concern smoking histo ry information not available. Family History Concern Status Health Concern family histor y information not available. ENCOUNTERS ENCOUNTER INFORMATION Reason for Visit XRAY Admission September 19, 2024 9:23:[address] [address] Discharge September 19, 2024 9:23:00 PM [facility] DISCHARGED TO HOME OR SELF CARE ENCOUNTER DIAGNOSES Notes information is not shaji ilable. Code System Diagnosis Onset Date Diagnosis information is not available. 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 worker Role on Team Status Start Date End Date Update d By DALTON KELLY PCP normal September 19, 2024 5:00:00 AM [facility] September 19, 2024 9:23:00 PM [facility] [id number] on September 19, 2024 9:24:19 PM [facility] DALTON KELLY Attending normal September 19, 2024 5:00:00 AM [facility] September 19, 2024 9:23:00 PM [facility] [id number] on September 19, 2024 9:24:19 PM [facility] DALTON KELLY Admitting normal September 19, 2024 5:00:00 AM [facility] September 19, 2024 9:23:00 PM [facility] [id number] on September 19, 2024 9:24:19 PM [facility]
--- OUTSIDE RECORDS SUMMARY | 2024-11-24 13:34 | XMS_ITS ---
Care Plan - [facility] Created on: November 24, 2024 Boubacar Baxter : 1940 Sex: Male Author Organization [facility] Address [address] [place] [address] Phone Care Team Providers Care Balloon Dipper Name Role Phone Thomas PAYAN, Frederick Unavailable [phone] MARISSA HOFFMAN MD Unavailable [phone] BEKAH HOFFMAN MD Primary Care Provider [phone]
--- NOTE | 2024-11-24 13:35 | CA_ITS ---
APPROVED REPORT EXAM: Comprehensive 2D, Doppler, and color-flow Echocardiogram Microsoft Crm Developer: Graciela Diehl RT(R) Ht: 5 ft 8 in Wt: 220lbs BSA: 2.13 BP: 113/73 mmHg Indications: chronic systolic HF, AFIB, abn EKG, dyspnea, DM 2D Dimensions LVEF (Pelayo's) 47.20 % M: 52 - 72 LV Volume 94.00 mL M: 62 - 150 LV Volume Index 44.1 mL/m2 M: 34 - 74 LA Volume 78.10 mL LA Volume Index 36.67 mL/m2 (M/F) 16-34 EF AP4 55.50 % EF AP2 39.5 % EF BP 47.2 % GL Strain -11.0 % M-Mode Dimensions RVDd 3.19 cm (0.9-2.6) LA Diam 5.65 cm (1.9-4.0) LVDd 4.74 cm (3.5-5.7) LVDs 3.94 cm (3.5-5.7) IVSd 0.75 cm (0.6-1.1) PWd 0.99 cm (0.6-1.1) EF (Teich) 35.30% FS 16.90% EDV (Teich) 104.40 mL ESV (Teich) 67.50 mL Aortic Valve DEWEY Index 2.03 cm2/m2 AoV Peak Jose F. 78.0 (50-130 cm/s) AO Peak GR. 2.40 mmHg AO Mean GR. 1.20 (<5 mmHg) AO VTI 13.0 (18-25 cm) DEWEY (VTI) 4.43 (2.5-4.5 cm2) Tricuspid Valve TR P. Velocity 226.00 cm/s RAP Estimate 15.00 mmHg RVSP 35.50 mmHg Left Ventricle The left ventricle is normal size. Left ventricular systolic function is moderately decreased. There is increased LV wall thickness. There is moderate global hypokinesis present. The septum is asynchronous. Diastolic function is indeterminate. LVEF is 35-40%. Right Ventricle The right ventricle is normal size. The right ventricular systolic function is normal. Atria Left atrium is moderately dilated. Right atrium is moderately dilated. There is no Doppler evidence of interatrial shunt. Aortic Valve Aortic valve is mildly thickened. Trace aortic regurgitation. There is no aortic valvular stenosis. Mitral Valve The mitral valve leaflets are mildly thickened. Trace mitral regurgitation. Tricuspid Valve Tricuspid valve is grossly normal in structure and function. Mild tricuspid regurgitation. RVSP 25-30 mmHg. Pulmonic Valve The pulmonary valve is normal in structure. Trace pulmonic regurgitation. Great Vessels The aortic root is normal in size. IVC is normal in size and collapses >50% with inspiration. Pericardium There is no pericardial effusion. Other Information Study Quality: Fair Conclusion Moderate reduction in LV systolic function (LVEF 35-40%). Moderate biatrial dilation. Mild TR. RVSP 25-30 mmHg. Electronically signed by : Kay Ruiz MD 11/24/2024 21:12:13
--- OUTSIDE RECORDS SUMMARY | 2024-11-24 13:35 | XMS_ITS | Continuity of Care Document ---
Author Organization [facility], [facility] Address [address] [address] [place] [address] Care Team Providers Care Country Sales Manager Name Role Phone BEKAH HOFFMAN Primary Care Provider DONAVON PEDROZA Palliative Care MARIO SUE Palliative Care Assessment Encounter Date Assessment Date Assessment LastModified by Organization Details LastModified Time 11/16/2024 11/16/2024 1. Localized edema secondary to chronic systolic congestive heart failure. Get updated echocardiogram in the next 1 week. Check pro BNP level today and CMP today. Prescribed furosemide 20 mg daily and potassium 10 mEq daily. Stay on low-sodium diet 2. Type 2 diabetes mellitus with hyperglycemia. Refilled his Tresiba insulin 28 units subcu daily. Continue metformin at 1000 mg twice daily and low-carb diet. Check he will an A1c next visit 3. Chronic obstructive pulmonary disease. Currently stable without inhalers. 4. Atrial fibrillation. Rate controlled. Continue metoprolol succinate 25 mg daily and Xarelto 20 mg daily. 5. Chronic kidney disease stage III. Check CMP today. Avoid nonsteroidals. 6. History of anemia. Check CBC next visit 7. Morbid obesity. Decrease calorie intake 8. Osteoarthritis bilateral knees. Patient on oxycodone/acetami nophen 7.5/325 mg 1 tab every 6 hours as needed for pain and followed by palliative care 9. RTC in 6 weeks [email or web address] Not available 11/18/2024 17:45:03 Plan of Treatment Reminders Order Date Submit Date Provider Last Modified By Organization Details Last Modified Time Details Appointments RECHECK 2024 10:45A Santos HOFFMAN MD Not available Not available Not available NEW PATIENT MEMORY O 2024 01:45P Snatos FERRARA DO Not available Not available Not available Lab pro BNP (pro B-type natriuret ic peptide), serum or plasma 2024 025 [facility], [address] [place] [address], [phone], 11/16/2024 19:06:26 CMP, serum or plasma 2024 025 [facility], [address] [place], [phone], 11/16/2024 19:17:06 Referral None recorded. Procedures None recorded. Surgeries None recorded. Imaging US, echocardi ogram, transthor acic, complete, w/ color flow - next 1 week 2024 025 [email or web address] [facility] ([facility]), [address], [place], [address], 11/20/2024 12:01:18 Medication Orders furosemid e 20 mg tablet 2024 025 [facility], [address], [address], 11/16/2024 11:52:36 potassium chloride ER 10 mEq capsule,e xtended release 2024 025 [facility], [address], [address], 11/16/2024 11:52:36 Tresiba FlexTouch U-100 insulin 100 unit/mL (3 mL) subcutane ous pen 2024 025 [facility], [address], [address], 11/16/2024 12:00:09 Patient TargetsNo targets recorded. Patient InstructionsNo instructions recorded. Reason for Referral None Reported. Results Created Date Observation Date Name Description Value Unit Range Abnormal Flag Note LastModifiedBy Organization Detail LastModifiedTime 10/28/19 25 10/26/2024 XR, knee No observ ation record ed. [email or web address] Not Available 11/06 08:29:59 10/28/19 25 10/26/2024 XR, knee No observ ation record ed. [email or web address] [facility] [address], [place], [address], 11/06/2024 08:29:43 Result Notes None recorded. Problems Name Problem SNOMED Code Status Onset Date Resolution Date Notes Provider Name and Address Organization Details Recorded Time Benign prostatic hyperplasi a with outflow obstructio n 504841188 Active 2022 BEKAH HOFFMAN MD [address] [place] [address], [phone] , [facility] 3 15:01:56 Bilateral osteoarthr itis of knees 1934614522117 07 Active 2022 BEKAH HOFFMAN MD [address] [place] [address], [address] , [facility] 3 15:01:59 Chronic atrial fibrillati on 241160852 Active 2022 BEKAH HOFFMAN MD [address] [place] [address], [address] , [facility] 3 15:02:00 Chronic kidney disease stage 3 602377465 Active 2022 BEKAH HOFFMAN MD [address] [place] [address], [address] , [facility] 3 15:02:04 Chronic obstructiv e pulmonary disease 00775514 Active 2022 BEKAH HOFFMAN MD [address] [place] [address], [address] , [facility] 3 15:02:06 Chronic systolic heart failure 014828158 Active 2022 BEKAH HOFFMAN MD [address] [place] [address], [address] , [facility] 3 15:02:07 Generalize d anxiety disorder 46781151 Active 2022 BEKAH HOFFMAN MD [address] [place] [address], [address] , [facility] 3 15:02:09 Obesity 438465120 Active 2022 BEKAH HOFFMAN MD [address] [place] [address], [address] , [facility] 3 15:02:11 Moderate dementia 5339619812997 00 Active 2022 BEKAH HOFFMAN MD [address] [place] [address], [address] , [facility] 3 15:02:13 Peripheral neuropathy due to type 2 diabetes mellitus 3514220934974 Active 2022 BEKAH HOFFMAN MD [address] [place] [address], [address] , [facility] 3 15:02:15 Renal disorder due to type 2 diabetes mellitus 623434849 Active 2022 BEKAH HOFFMAN MD [address] [place] [address], [address] , [facility] 3 15:02:18 Aneurysm of thoracic aorta 833254181 Active 2022 BEKAH HOFFMAN MD [address] [place] [address], [address] , [facility] 3 15:02:20 Vitamin B12 deficiency (non anemic) 13128595 Active 2022 BEKAH HOFFMAN MD [address] [place] [address], [address] , [facility] 3 15:02:22 History of deep vein thrombosis 671047283 Active 2022 BEKAH HOFFMAN MD [address] [place] [address], [address] , [facility] 3 18:35:02 Anemia 892948634 Active 2022 BEKAH HOFFMAN MD [address] [place] [address], [address] , [facility] 3 18:35:11 Type 2 diabetes mellitus 24576389 Active 2022 BEKAH HOFFMAN MD [address] [place] [address], [address] [place] [address] , [facility] 3 15:05:34 Pain of bilateral knee joints 1050258269470 04 Active 2022 BEKAH HOFFMAN MD [address] [place] [address], [address] [place] [address] , [facility] 3 15:05:46 Ophthalmic examinatio n and evaluation Active 2022 BEKAH HOFFMAN MD [address] [place] [address], [address] [place] [address] , [facility] 3 15:06:26 Chronic ki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 2 diabetes mellitus 847475230896 Active Not Available [facility] 4 06:45:56 Neuropathy due to type 2 diabetes mellitus 2919391508664 06 Active Not Available [facility] 4 06:46:25 Hypercoagu lability state 30346461 Active Not Available [facility] 4 06:46:31 Dementia 04860979 Active 2023 BEKAH HOFFMAN MD [address] [place] [address], [address] [place] [address] , [facility] 4 06:56:51 Morbid obesity 264063036 Active Not Available [facility] 4 21:18:13 Nausea and vomiting 71532848 Active 2023 BEKAH HOFFMAN MD [address] [place] [address], [address] [place] [address] , [facility] 4 21:27:40 Uncontroll ed type 2 diabetes mellitus 282166720 Active Not Available [facility] 4 06:33:25 Administra tion of viral vaccine Active 2023 BEKAH HOFFMAN MD [address] [place] [address], [address] , [facility] 4 06:43:44 Hyperglyce isabela due to type 2 diabetes mellitus 6588896422193 09 Active 2023 BEKAH HOFFMAN MD [address] [place] [address], [address] , [facility] 4 13:25:23 Atrial fibrillati on 10948824 Active 2023 BEKAH HOFFMAN MD [address] [place] [address], [address] , [facility] 4 13:26:04 Recurrent urinary tract infection 604104863 Active 2023 BEKAH HOFFMAN MD [address] [place] [address], [address] , [facility] 4 13:26:26 Onychomyco sis 092042273 Active 2023 BEKAH HOFFMAN MD [address] [place] [address], [address] [place] [address] , [facility] 4 13:26:27 Mood swings 76236134 Active 2023 BEKAH HOFFMAN MD [address] [place] [address], [address] [place] [address] , [facility] 4 13:26:29 Administra tion of influenza vaccine Active 2023 BEKAH HOFFMAN MD [address] [place] [address], [address] [place] [address] 4 23:29:03 Pain of left shoulder joint 1846142112148 9109 Active 2024 BEKAH HOFFMAN MD [address] [place] [address], [phone] [place] [address] 5 06:55:13 Disorder of nervous system due to type 2 diabetes mellitus 905729446 Active 2024 BEKAH HOFFMAN MD [address] [place] [address], [address] , [facility] 5 06:55:19 Problem Notes None recorded. Procedures Surgical History Date Name Laterality Status Provider Name and Address Organization Details Recorded Time 04/13/20 Social Determinants of Health completed DONAVON PEDROZA MD [address] [place] [phone] [place] [address] 04/13/2024 15:40:11 04/04/20 24 TCM completed Rosio Reilly [facility] 03/31/2024 10:46:40 operation on hip joint completed [facility] 12/17/2023 14:16:02 operation on lung completed [facility] 12/17/2023 14:16:19 Imaging Results None recorded. Procedure Notes None recorded. Medical Equipment None Reported. Allergies No known drug allergies Medications Name Sig Start Date Stop Date Status Note LastModified by Organization Details LastModified Time Prescript ion - Prior Authoriza tion Request active Not Available Not Available Not Available diclofena c 3 % topical gel APPLY 4 grams to each knee and left shoulder BY TOPICAL ROUTE 2 TIMES PER DAY 09/20 completed Not Available Not Available Not Available potassium chloride ER 10 mEq capsule,e xtended release TAKE 1 CAPSULE BY MOUTH ONCE DAILY IN THE MORNING active Not Available Not Available No t Available cefuroxim e axetil 250 mg tablet TAKE TWO TABLETS BY MOUTH TWICE DAILY FOR 5 DAYS -- FINISH ALL MEDICINE -- 04/04 completed Not Available Not Available Not Available donepezil 5 mg tablet TAKE 1 TABLET BY MOUTH ONCE DAILY 05/29 completed Not Available Not Available Not Available polyethyl savannah glycol 3350 17 gram oral powder packet DISSOLVE 1 POWDER IN WATER & DRINK ONCE DAILY NEEDED FOR UP TO 14 DAYS. active Not Available Not Available No t Available alprazola m 1 mg tablet TAKE 1 TABLET BY MOUTH TWICE DAILY NEEDED FOR ANXIETY 08/14 completed Not Available Not Available Not Available citalopra m 10 mg tablet TAKE 1 TABLET BY MOUTH ONCE DAILY 07/27 completed Not Available Not Available Not Available donepezil 10 mg tablet Take 1 tablet every day by oral route. 04/25 completed Not Available Not Available Not Available ondansetr on HCl 4 mg tablet TAKE 1 TABLET BY MOUTH EVERY 8 HOURS NEEDED active Not Available Not Available No t Available gabapenti n 400 mg capsule Take 1 capsule twice a day by oral route. 2024 active Not Available Not Available Not Avai lable midodrine 5 mg tablet TAKE 2 TABLETS BY MOUTH THREE TIMES DAILY active Not Available Not Available No t Available pioglitaz one 45 mg tablet TAKE 1 TABLET BY MOUTH ONCE DAILY 07/27 completed Not Available Not Available Not Available hydrocodo ne 10 mg-acetam inophen 325 mg tablet TAKE 1 TABLET BY MOUTH 4 TIMES DAILY NEEDED FOR PAIN 09/19 completed Not taking-- Taking Oxycodon e Not Available Not Available Not Available bisoprolo l fumarate 5 mg tablet TAKE 1/2 (ONE-BECKY F) TABLET BY MOUTH ONCE DAILY 01/19 completed Not Available Not Available Not Available oxycodone -acetamin ophen 5 mg-325 mg tablet TAKE 1 TABLET BY MOUTH EVERY 6 HOURS NEEDED FOR SEVERE PAIN 11/16 completed Not Available Not Available Not Available alprazola m 0.5 mg tablet Take 1 tablet twice a day by oral route as needed for 30 days, for Anxiety. 2024 active Not Available Not Available Not Avai lable citalopra m 20 mg tablet TAKE 1 TABLET BY MOUTH ONCE DAILY 05/29 completed Not Available Not Available Not Available magnesium oxide 400 mg (241.3 mg magnesium ) tablet Take 1 tablet every day by oral route. 2023 active Not Available Not Available Not Avai lable tamsulosi n 0.4 mg capsule TAKE 1 CAPSULE BY MOUTH ONCE DAILY active Not Available Not Available No t Available gabapenti n 800 mg tablet TAKE 1 TABLET BY MOUTH TWICE DAILY WITH MEALS FOR NEUROPAT HY FOR 30 DAYS 09/19 completed Taking the 400mg not 800mg Not Available Not Available Not Available OneTouch Ultra Test strips USE 1 STRIP TO CHECK GLUCOSE ONCE DAILY active Not Available Not Available No t Available oseltamiv ir 75 mg capsule Take 1 capsule every day by oral route with meal(s) for 10 days. 11/16 completed Not Available Not Available Not Available metformin 1,000 mg tablet TAKE 1 TABLET BY MOUTH TWICE DAILY active Not Available Not Available No t Available esomepraz ole magnesium 40 mg capsule,d elayed release TAKE 1 CAPSULE BY MOUTH ONCE DAILY active Not Available Not Available No t Available Neurontin 100 mg capsule 07/27 completed Instruct ions: 1 hs for nerve pain. May ^ q 7d if needed to 2 hs; 1 am, 2 hs; 2 am, 2 hs ;Medicat ion Descript ion: gabapent in; Route:or al; refills: 5; Quantity :30 capsule Not Available Not Available Not Available promethaz ine 25 mg tablet TAKE 1/2 (ONE-BECKY F) TABLET BY MOUTH EVERY 6 HOURS NEEDED FOR NAUSEA FOR 10 DAYS active Not Available Not Available No t Available furosemid e 20 mg tablet TAKE 1 TABLET BY MOUTH ONCE DAILY IN THE MORNING active Not Available Not Available No t Available metoprolo l succinate ER 25 mg tablet,ex tended release 24 hr active Not Available Not Available Not Available levofloxa lilo 500 mg tablet 01/19 completed Not Available Not Available Not Available oxycodone -acetamin ophen 7.5 mg-325 mg tablet Take 1 tablet every 6 hours by oral route as needed for 30 days, for Severe pain. 2024 active Not Available Not Available Not Avai lable cefdinir 300 mg capsule TAKE 1 CAPSULE BY MOUTH TWICE DAILY 01/19 completed Not Available Not Available Not Available fludrocor tisone 0.1 mg tablet TAKE 1 TABLET BY MOUTH ONCE DAILY 10/14 completed Not Available Not Available Not Available doxycycli ne hyclate 100 mg tablet TAKE 1 TABLET BY MOUTH TWICE DAILY 01/19 completed Not Available Not Available Not Available finasteri de 5 mg tablet Take 1 tablet by mouth once daily active Not Available Not Available No t Available Lortab 2.5 mg-500 mg tablet 07/28 completed Medicati on Descript ion: acetamin ophen-hy drocodon e; Route:or al; refills: 0; Quantity :6 tablet Not Available Not Available Not Available amoxicill in 875 mg-potass ium clavulana te 125 mg tablet TAKE 1 TABLET BY MOUTH TWICE DAILY 07/27 completed Not Available Not Available Not Available Flexeril 10 mg tablet active Duration : 10 days;Med ication Descript ion: cycloben zaprine; Dosage:1 ; Route:or al; refills: 0; Quantity :30 tablet Not Available Not Available Not Available escitalop remy 10 mg tablet TAKE 1 TABLET BY MOUTH ONCE DAILY active Not Available Not Available No t Available Xanax Daily 07/27 completed Duration : 20 days;Geoffrey quency: daily;Al t Frequenc y: prn;Medi cation Descript ion: alprazol am; Dosage:1 ; Route:or al; refills: 0; Quantity :20 tablet Not Available Not Available Not Available Glucophag e Two times a day 07/27 completed Duration : 30 days;Geoffrey quency: bid;Medi cation Descript ion: metformi n; Route:or al; refills: 0; Quantity :60 tablet Not Available Not Available Not Available Amaryl Daily 07/27 completed Duration : 30 days;Geoffrey quency: daily;Me dication Descript ion: glimepir moises; Dosage:1 ; Route:or al; refills: 0; Quantity :30 tablet Not Available Not Available Not Available Mobic Daily 07/27 completed Frequenc y: daily;Me dication Descript ion: meloxica m; Dosage:1 ; Route:or al; refills: 5; Quantity :30 tablet Not Available Not Available Not Available BD Ultra-Fin e Short Pen Needle 31 gauge x 5/16 USE 1 ONCE DAILY active Not Available Not Available No t Available quetiapin e 50 mg tablet TAKE ONE-HALF TABLET BY MOUTH UP TO THREE TIMES DAILY active Not Available Not Available No t Available ferrous sulfate 324 mg (65 mg iron) tablet,de layed release TAKE 1 TABLET BY MOUTH ONCE DAILY active Not Available Not Available No t Available FeroSul 325 mg (65 mg iron) tablet TAKE 1 TABLET BY MOUTH ONCE DAILY active Not Available Not Available No t Available diclofena c 1 % topical gel APPLY 4 GRAMS TO EACH KNEE AND LEFT SHOULDER BY TOPICAL ROUTE THE AFFECTED AREA(S) BY TOPICAL ROUTE 2 TIMES PER DAY 2024 active Not Available Not Available Not Avai lable Xarelto 20 mg tablet TAKE 1 TABLET BY MOUTH ONCE DAILY active Not Available Not Available No t Available Tresiba FlexTouch U-100 insulin 100 unit/mL (3 mL) subcutane ous pen INJECT 28 UNITS SUBCUTAN EOUSLY ONCE DAILY active Not Available Not Available No t Available OneTouch Ultra2 Meter active Not Available Not Available Not Available OneTouch Delica Plus Lancet 33 gauge USE 1 LANCET TO CHECK GLUCOSE ONCE DAILY active Not Available Not Available No t Available Lagevrio 200 mg capsule (EUA) TAKE 4 CAPSULES BY MOUTH TWICE DAILY FOR 5 DAYS 07/27 completed Not Available Not Available Not Available Vitals Date Recorded Body height Body mass index (BMI) Body weight Oxygen saturation Oxygen saturation in Arterial blood by Pulse oximetry Heart rate Systolic blood pressure Diastolic blood pressure Provider Name and Address Organization Details Last Updated DateTime 5 177.8 cm 33 kg/m2 126017. 25 g 94 % 94 % 100 /min 132 mm[Hg] 82 mm[Hg] Radha Luzley [facility] 5 11:30:48 Social History Question Answer Notes LastModified by Organizat ion Details LastModified Time Tobacco Smoking Status Former Smoker Luz Ortega [facility] 01/19/2024 15:42:37 What Is Your Level Of Alcohol Consumption? Occasional Information not available 05/14/2023 When Did You Quit Smoking? 6-10yearssince lastcigarette Information not available 01/19/2024 What Was The Date Of Your Most Recent Tobacco Screening? 06/07/2024 Information not available 06/07/2024 Do You Use Any Illicit Or Recreational Drugs? No Information not available 05/14/2023 Has Tobacco Cessation Counseling Been Provided? No Information not available 05/14/2023 Do You Or Have You Ever Used Any Other Forms Of Tobacco Or Nicotine? No Information not available 05/14/2023 Sex: Unknown Functional Status None recorded. Mental Status None recorded. Family History Nothing Reported. Medical History Condition Response Diabetes Y Anxiety Disorder Y Heart Disease Y Arthritis Y Neurological Problems Y Immunizations Vaccine Type Date Status Note Provider Nam e and Address Organization Details Recorded Time COVID-19, mRNA, LNP-S, PF, 30 mcg/0.3 mL dose 1 completed Jasmin Ray [facility] 12/17/2023 14:03:42 COVID-19, mRNA, LNP-S, PF, 30 mcg/0.3 mL dose 1 completed Jasmin Ray [facility] 12/17/2023 14:03:42 COVID-19, mRNA, LNP-S, PF, 30 mcg/0.3 mL dose 1 completed Jasmin Ray [facility] 12/17/2023 14:03:42 COVID-19, mRNA, LNP-S, PF, 30 mcg/0.3 mL dose, alma-sucrose 2 completed Jasmin Ray [facility] 12/17/2023 14:03:42 Pneumococcal conjugate PCV 13 7 completed Jasmin Madden [facility] 12/17/2023 14:03:42 Influenza, high-dose, trivalent, PF 6 completed Jasmin Madden [facility] 12/17/2023 14:03:42 Influenza, high-dose, trivalent, PF 5 completed Radha Perez [facility] 10/03/2024 09:01:32 Influenza, high-dose, quadrivalent, PF 3 completed BEKAH HOFFMAN MD [address] [place] [address], [address], [facility] 05/16/2023 21:27:46 zoster recombinant 4 completed BEKAH HOFFMAN MD [address] [place] [address], [address], [facility] 01/20/2024 06:33:46 Influenza, high-dose, trivalent, PF 4 completed Luz Ortega [facility] 06/08/2024 11:58:43 Past Encounters Encounter ID Performer Location Encounter Start Date Encounter Closed Date Diagnosis/Indication Diagnosis SNOMED-CT Code Diagnosis ICD10 Code Diagnosis Note [id number] BEKAH HOFFMAN MD [facility] [address] [place] [address] 11/16/2024 11:10:23 11/16/2024 12:03:56 Morbid obesity 620547155 E66.01 Neuropathy due to type 2 diabetes mellitus 2689342100 46867 E11.40 Anemia 773107662 D64.9 Chronic at rial fibrillation 749986374 I48.20 Bilateral osteoarthritis of knees 6209640382 61282 M17.0 Benign pro static hyperplasia with outflow obstruction 278756519 N40.1 Chronic ki dney disease stage 3 555779148 N18.30 Chronic ob structive pulmonary disease 09442672 J44.9 Chronic sy stolic heart failure 769028879 I50.22 Dementia 32055697 F03.90 Generalize d anxiety disorder 98675854 F41.1 Hyperglyce isabela due to type 2 diabetes mellitus 3155661102 78845 E11.65 Vitamin B1 2 deficiency (non anemic) 64017814 E53.8 Health Concerns Section Related Observation LastModified by Organization Detai ls LastModified Time None Recorded Concern Status LastModified by Organization Details LastModified Time None Recorded Payers Encounter Date Sequence Insurance Name Policy Number Policy Loera Covered Member ID Loera Member ID Guarantor Name 11/16/2024 1 [employer] (MEDICARE REPLACEMENT PPO) [id number] Boubacar Baxter [id number] Boubacar Baxter Notes Date Note Type Note Provider Name and Address Organization Details Recorded Time 11/16/2024 text/html Interval hospitalizations:noM edication changes:noOther physician visits:noExercise level:none due to swelling and hurtingTobacco or alcohol use:drink some timesHave you had any recent chest pain or unusual dyspnea ?noMrGaston Baxter is a 84-year-old who comes today for follow-up multiple chronic medical conditions. His main complaint is that of chronic pain in both knees due to severe osteoarthritis and recently some increased edema in both legs for the past few months. His right calf has been swollen especially over the past 1 week. Appetite has been good. He eats 3 meals daily. He is also followed by palliative care. He has a history of some systolic congestive heart failure. Ejection fraction was about 38% 2-1/2 years ago. No recent ER visit. Denies increased dyspnea. He denies adding salt to his food. He is taking Tresiba insulin 28 units subcu daily. BEKAH HOFFMAN MD [address] [place] [address], [phone], [facility] 11/18/2024 17:45:32
--- OUTSIDE RECORDS SUMMARY | 2024-11-24 13:35 | XMS_ITS | Clinical Summary ---
Author Organization [facility] Address [address] [place] [address] Phone Care Team Providers Care Cutting Machine Tender Helper Name Role Phone Thomas PAYAN, Frederick Unavailable [phone] MARISSA HOFFMAN MD Unavailable [phone] BEKAH HOFFMAN MD Primary Care Provider [phone] Reason for Visit and Chief Complaint The Chief Complaint is: Right Knee Pain Problems Includes: Problems addressed during this encounter and other active Problems All Visits Onset Date Resolved Date Provider Condition S tatus Joint Pain in Both Knees 03/29/2018 Frederick spear MD Active Last Documented On 8 12:47PM ; [facility] Plan of Treatment Patient was seen by myself Sukh Coffey PA-C we discussed treatment options of living with it knee replacement, ijnections he does not want to do injections at this point in time. He wants to do a knee replacement we'll set this up for the beginning of December have him come back to talk to Dr. Armas at the end of November for surgery. He understands he will need to have physical therapy afterwards. His main Risk at this point time as he is overweight and diabetic due to those risk factors and also being on pain medication already we will have a hard time controlling his pain postoperatively potentially so he should be an inpatient surgery. - Last Documented On 11/17/2018 2:33PM ; [facility] Instructions to patient Instructions for patient to see pcp for bp and wt Last Documented On 9 1:33PM ; [facility] Lose weight Last Documented On 9 1:33PM ; [facility] Assessments Includes: Assessments from this encounter Findings Right knee arthritis - Last Documented On 11/17/2018 2:33PM ; [facility] Instructions Includes: Instructions from this encounter Instructions to patient Instructions for patient to see pcp for bp and wt Last Documented On 9 1:33PM ; [facility] Lose weight Last Documented On 9 1:33PM ; [facility] Medical Equipment - Implanted Devices Includes: Current Devices No Medical Equipment Recorded Medications Includes: Medications discussed during this encounter and other current Medications Current Medications (continue as prescribed) HYDROcodone-Acetaminophen 10 -325MG Oral Tablet 11/25/2018 Provider: BEKAH HOFFMAN MD Diagnosis: Last Documented On 9 12:43PM By Marie Hunter ; [facility] HYDROcodone-Acetaminophen 10 -325MG Oral Tablet 10/27/2018 Provider: BEKAH HOFFMAN MD Diagnosis: Last Documented On 9 12:43PM By Marie Hunter ; [facility] Pioglitazone HCl 45MG Oral Tablet 10/18/2018 Provide r: BEKAH HOFFMAN MD Diagnosis: Last Documented On 9 12:43PM By Marie Hunter ; [facility] HYDROcodone-Acetaminophen 10 -325MG Oral Tablet 09/29/2018 Provider: BEKAH HOFFMAN MD Diagnosis: Last Documented On 9 12:43PM By Marie Hunter ; [facility] Ondansetron HCl 8MG Oral Tablet 09/16/2018 Provider: BEKAH HOFFMAN MD Diagnosis: Last Documented On 9 12:43PM By Marie Hunter ; [facility] Toujeo SoloStar 300UNIT/ML S ubcutaneous Solution Pen-injector 09/16/2018 Provider: BEKAH HOFFMAN MD Diagnosis: Last Documented On 9 12:43PM By Marie Hunter ; [facility] Januvia 100MG Oral Tablet 09/05/2018 Provider: ERLIN HOFFMAN MD Diagnosis: Last Documented On 9 12:44PM By Marie Hunter ; [facility] metFORMIN HCl 1000MG Oral Tablet 08/17/2018 Provider : BEKAH HOFFMAN MD Diagnosis: Last Documented On 9 12:44PM By Marie Hunter ; [facility] Gabapentin 800MG Oral Tablet 07/29/2018 Provider: BEKAH HOFFMAN MD Diagnosis: Last Documented On 9 12:44PM By Marie Hunter ; [facility] Hydrocodone-Acetaminophen 10 -325MG Oral Tablet 03/25/2018 Provider: BEKAH HOFFMAN MD Diagnosis: Last Documented On 8 12:47PM By Michelle Nath ; [facility] Toujeo Max SoloStar 300UNIT/ ML Subcutaneous Solution Pen-injector 03/23/2018 Provider: BEKAH HOFFMAN MD Diagnosis: Last Documented On 8 12:47PM By Michelle Nath ; [facility] Januvia 100MG Oral Tablet 03/07/2018 Provider: ERLIN HOFFMAN MD Diagnosis: Last Documented On 8 12:47PM By Michelle Nath ; [facility] Gabapentin 800MG Oral Tablet 01/24/2018 Provider: BEKAH HOFFMAN MD Diagnosis: Last Documented On 8 12:47PM By Michelle Nath ; [facility] Ondansetron HCl 4MG Oral Tablet 01/19/2018 Provider: Diagnosis: Last Documented On 8 12:47PM By Michelle Nath ; [facility] Past Medications on file Percocet 5-325MG Oral Tablet 12/09/2018 - 01/08/2019 Philly zavala: Travis Armas MD Diagnosis: 1-2 po q 4-6h prn for pain surgery 12/14/18 Last Documented On 9 11:32AM By Marie Velásquez ; [facility] Medications Administered Includes: Administered Medications from this encounter No Administered Medications Recorded Vital Signs Includes: Vital Signs from this encounter Vital Name 11/16/2018 01:33P Blood Pressure Sitting (mmHg) 130/68 Pulse Rate-Sitting (bpm) 70 Height (in) 71 Weight (lb) 260 Body Mass Index (kg/m2) 36.3 Body Surface Area (m2) 2.4 Note: kbg Last Documented: On 11/16/2018 1:33PM ; [facility] Results Includes: Results discussed during this encounter No Results Recorded For Specified Dates History of Present Illness Includes: History of Present Illness from this encounter MORGAN Baxter is a 78 year old male. - Medication list reviewed with patient. - Pain is constant (100% of the time) - Pain is dull, aching Please rate pain on scale of 1 - 10: 10 No Previous Treatment Patient is here today with complaints of right knee pain he's not interested in any injections with any like to discuss having a right knee replacement. He's had symptoms for 4-5 years with the right knee usually stiff after sitting and has pain walking. He is diabetic he is unknown what his A1c is. He also takes [place] 10 up to 4-5 times a day for chronic pain. Social History Description Last Updated Alcohol use 04/05/2018 Last Documented On 9 1:32PM ; [facility] Caffeine use 04/05/2018 Last Documented On 9 1:32PM ; [facility] No recent change in diet 04/05/2018 Last Documented On 9 1:32PM ; [facility] No tobacco use 04/05/2018 Last Documented On 9 1:32PM ; [facility] Not a current smoker 04/05/2018 Last Documented On 9 1:32PM ; [facility] Not exercising regularly 04/05/2018 Last Documented On 9 1:32PM ; [facility] Not using drugs 04/05/2018 Last Documented On 9 1:32PM ; [facility] Smoking status : Former smoker 8 Last Documented On 9 1:32PM ; [facility] Procedures and Surgical History Includes: Procedures from this encounter Procedures Code Diagnosis Performing Provider Service L ocation Service Date Clinical summary provided to patient Last Documented On 9 1:33PM ; [facility] Surgical History Last Updated History of appendectomy 04/05/2018 Last Documented On 9 1:32PM ; [facility] Medical History Includes: Medical History addressed during this encounter Description Last Updated History of diabetes mellitus 04/05/2018 Last Documented On 9 1:32PM ; [facility] Family History Includes: Family History addressed during this encounter Description Last Updated No significant family history 04/05/2018 Last Documented On 9 1:32PM ; [facility] Review of Systems Includes: Review of [...] Time Diagnosis Follow Up Travis Armas MD [facility] 1:24PM 2:09PM Insurance Includes: Active Insurance Policies Plan Name Member ID Group # Subscriber Relationship Effect natalie Dates - [employer] MEDICARE [id number] [facility] Clinical Notes Includes: Clinical Notes from this encounter No Clinical Notes Recorded
== END 2024-11-24 23:59 | disposition home or self-care (01) ==
LOC: RT 13:33
PROVIDERS: Visit Provider Internal Medicine
DX: I51.7 Cardiomegaly (principal); I36.1 Nonrheumatic tricuspid (valve) insufficiency; I50.22 Chronic systolic (congestive) heart failure
CPT/HCPCS: 93306

== ENCOUNTER 2025-04-01 04:24 | Emergency (ER) | payer MEDICARE, SELFPAY ==
--- OUTSIDE RECORDS SUMMARY | 2024-11-18 17:30 | XMS_ITS ---
Author Organization [facility] Address [address] [place] [address] Care Team Providers Care Marine Equipment Test Engineer Name Role Phone Jeremie Schneider Primary Care Provider Migration, Provider Unavailable Unavailable REASON FOR VISIT [facility] To [facility] Conversion Encounter Medications Medication SIG (Take, Route, [...] [address] [place], [place] [address] 11/18/2024 Provider Migration Plan Of Treatment No Information Progress Notes * Boubacar SOTODOB:1940 (85 yo M)Acc No.[id number]:11/18/2024 Patient: Boubacar HOBSON Provider: Philly Torres :1940 A ge:84 Y S ex:Male Date:11/18/2024 Address:[address] [place] [address] [facility] Pcp:Jeremie Schneider Subjective: * Chief Complaints: * [...] Electronic signature of Prov ider Migration on 04/01/2025 at 04:43 AM EDT Sign off status: Pending * Provider: Philly Torres Date: 11/18/2024 Generated for Eliel love/Mani/Minerva on: 04/01/2025 04:43 AM EDT
[2025-04-01 04:35] VITALS: BP 130/55; PULSE 85; RESP 16; TEMP 36.6; O2SAT 96; BMI 31.2
--- OUTSIDE RECORDS SUMMARY | 2025-04-01 04:41 | XMS_ITS | Clinical Summary ---
Author Organization [facility] Address [address] [place] [id number] Care Team Providers Care Return Agent Airport Name Role Phone Unknown, Attending Provider Primary Care Provide r Unavailable Source Comments This information has been disclosed to you from confidential records protectedfrom disclosure by state law. You shall make no further disclosure of thisinformation without the specific, written, and informed release of theindividual to whom it pertains, or as otherwise permitted by law. A generalauthorization for the release of medical or other information is not sufficientfor the purposes of therelease of HIV test results or diagnoses. [id number] Allergies No known active allergies Medications tamsulosin (FLOMAX) 0.4 mg Cap Take 1 capsule (0.4 mg total) by mouth at bedtime. Active midodrine (PROAMATINE) 5 MG tablet Take 1 tablet (5 mg total) by mouth 3 times a day before meals. 2 Active metFORMIN (GLUCOPHAGE) 1000 MG tablet Take 1 tablet (1,000 mg total) by mouth 2 times a day with meals. Active magnesium oxide (MAG-OX) 400 mg tablet Take 1 tablet (400 mg total) by mouth 3 times a day. Active citalopram (CELEXA) 10 MG tablet Take 1 tablet (10 mg total) by mouth daily. Active donepeziL (ARICEPT) 10 MG tablet Take 1 tablet (10 mg total) by mouth at bedtime. Active esomeprazole (NEXIUM) 40 MG capsule Take 1 capsule (40 mg total) by mouth daily. Active finasteride (PROSCAR) 5 mg tablet Take 1 tablet (5 mg total) by mouth daily. Active gabapentin (NEURONTIN) 800 MG tablet Take 1 tablet (800 mg total) by mouth in the morning and at bedtime. 2 Active pen needle, diabetic (PEN NEEDLE) 32 gauge x 32 Ndle Use to administer insulin. 30 each 2 Active AMOXicillin-cla vulanate (AUGMENTIN) 875-125 mg per tabletIndicatio ns:Pneumonia of right upper lobe due to infectious organism Take 1 tablet by mouth 2 times a day. 28 tablet 2 Active Active Problems Problem Noted Date Diagnosed Date Hemoptysis 06/26/2022 Atrial fibrillation 06/26/2022 Family History Medical History Relation Comments Cancer Brother Cancer Father Cancer Mother Relation Status Comments Brother Father Mother Social History Tobacco Use Types Packs/Day Years Used Date Smoking Tobacco: Former Cigarettes 2 50 1 969 - 2019 Tobacco Cessation:Counseling Given: Not Answered AUDIT-C Answer Date Recorded Q1: How often do you have a drink containing alc ohol? Monthly or less 06/27/2022 Q2: How many drinks containi ng alcohol do you have on a typical day when you are drinking? 1 or 2 06/27/2022 Q3: How often do you have si x or more drinks on one occasion? Monthly 06/27/2022 Sex and Gender Information Value Date Recorded Sex Assigned at Male 07/03/2022 8:54 AM EST Legal Sex Male 5:54 PM EST Gender Identity Male 07/03/2022 8:54 AM EST Sexual Orientation Not on file Last Filed Vital Signs Vital Sign Reading Time Taken Comments Blood Pressure 105/46 07/03/2022 12:50 PM EST Pulse 152 07/03/2022 12:50 PM EST Temperature 36.8 C (98.2 F) 07/03/2022 11:53 AM EST Respiratory Rate 16 07/03/2022 12:50 PM EST Oxygen Saturation 92% 07/03/2022 12:50 PM EST Inhaled Oxygen Concentration 92% 07/03/2022 1 2:50 PM EST Weight 95.7 kg (211 lb) 07/03/2022 8:58 AM EST Height 177.8 cm (5' 10 ) 07/03/2022 8:58 AM EST Body Mass Index 30.28 07/03/2022 8:58 AM EST Plan of Treatment Health Maintenance Due Date Last Done Comments Depression Screening 1958 Immunization: DTaP/Tdap/Td ( 1 - Tdap) 1958 Immunization: Zoster (1 of 2) 1989 Immunization: RSV (Adult) (1 - 1-dose 75+ series) 2014 Immunization: Pneumococcal ( 2 of 2 - PCV20 or PCV21) 03/09/2018 03/09/2017 Alcohol Misuse Screening 06/26/2023 06/26/2022 Immunization: COVID-19 ( season) 2024 12/29/2021, 05/24/2021, 10/15/2020, Additional history exists Immunization: Influenza (MyC siu) (#1) 2025 05/13/2016 Diabetes Screening 06/27/2025 06/27/2022 Procedures Procedure Name Priority Date/Time Associated Diagnosis Comments HEMOGLOBIN A1C Routine 06/27/2022 7:45 AM EST from Last 3 Months or Most Recently Relevant to Health Maintenance Results * (ABNORMAL) Hemoglobin A1c (06/27/2022 7:45 AM EST) Hemoglobin A1C 6.1(H) 4.0 - 5.6 % 06/27/2022 9:33 AM EST [facility] Comment: Hemoglobin A1c Interpretation Guidelines: Normal: <5.7% Prediabetes: 5.7-6.4% Diabetes: >/= 6.5% Diagnosis requires two independent tests unless clinical diagnosis is clear. Some clinical conditions, particularly anemias and hemoglobinopathies, may interfere with the diagnostic accuracy of hemoglobin A1c. The recommended goal for diabetic glycemic control (Hemoglobin A1c <7.0%) should be Individualized based on duration of diabetes, age/life expectancy, comorbid conditions, known CVD or advanced microvascular complications, hypoglycemia unawareness, and other individual patient considerations. Whole Blood 06/27/2022 7:45 AM EST 06/27/2022 8:03 AM EST us Mario Robin MD LAB BLOOD ORDERABLES Final Resul t [facility] [address] [place] [address], [facility] from Last 3 Months or Most Recently Relevant to Health Maintenance Insurance [employer] Advance Directives For more information, please contact: [phone] * Full Code (Latest Code Status on File) Date Activated Date Inactivated Comments 06/26/2022 11:06 PM 06/30/2022 7:56 PM Care Teams Return Agent Airport Relationship Specialty Start Date End Date Unknown, Attending Provider PCP - General 06/26/22
--- OUTSIDE RECORDS SUMMARY | 2025-04-01 04:41 | XMS_ITS | Clinical Summary ---
Author Organization [facility] Address [address] [place] [address] Care Team Providers Care Wrapping Machine Helper Name Role Phone Unavailable Primary Care Provider Unavailabl e Social History Tobacco Use Types Packs/Day Years Used Date Smoking Tobacco: Never Assessed Sex and Gender Information Value Date Recorded Sex Assigned at Not on file Legal Sex Male 8:48 PM EDT Gender Identity Not on file Sexual Orientation Not on file Plan of Treatment Not on file
--- OUTSIDE RECORDS SUMMARY | 2025-04-01 04:42 | XMS_ITS | Referral Summary ---
Author Organization [facility] ([place], [place], [place], [place]) Address [address] [place] [address] Care Team Providers Care Assembler Deck And Hull Name Role Phone Chaparro Almanza MD Primary Care Provider [phone] Allergies No known active allergies Medications ALPRAZolam (XANAX) 0.5 MG tablet Take 1 tablet (0.5 mg total) by mouth 2 (two) times daily as needed for Anxiety. Max Daily Amount: 1 mg Active citalopram (CeleXA) 20 MG tablet Take 1 tablet (20 mg total) by mouth daily. Active donepeziL (ARICEPT) 10 MG tablet Take 1 tablet (10 mg total) by mouth nightly. Active esomeprazole (NexIUM) 40 MG capsule Take 1 capsule (40 mg total) by mouth daily. Active ferrous sulfate 325 (65 FE) MG tablet Take 1 tablet (325 mg total) by mouth daily with breakfast. Active finasteride (PROSCAR) 5 mg tablet Take 1 tablet (5 mg total) by mouth daily. Active midodrine (PROAMATINE) 5 MG tablet Take 1 tablet (5 mg total) by mouth 3 (three) times daily with meals. Active promethazine (PHENERGAN) 25 MG tablet Take 1 tablet (25 mg total) by mouth every 6 (six) hours as needed for Nausea. Active rivaroxaban (XARELTO) 20 mg tablet Take 1 tablet (20 mg total) by mouth daily with dinner. Active magnesium oxide (MAG-OX) 400 mg (241.3 mg magnesium) tablet Take 1 tablet (400 mg total) by mouth 2 (two) times daily. Active gabapentin (NEURONTIN) 800 MG tablet Take 1 tablet (800 mg total) by mouth 2 (two) times daily. Max Daily Amount: 1,600 mg Active insulin degludec (Tresiba FlexTouch U-100) 100 unit/mL (3 mL) InPn Inject 20 Units subcutaneously nightly. Active HYDROcodone-ac etaminophen (NORCO 10-325) 10-325 mg per tablet Take 1 tablet by mouth every 6 (six) hours as needed for Pain. Max Daily Amount: 4 tablets Active metFORMIN (GLUCOPHAGE) 1000 MG tablet Take 1 tablet (1,000 mg total) by mouth 2 (two) times daily with breakfast and dinner. Active metoprolol succinate (TOPROL-XL) 25 MG 24 hr tablet Take 1 tablet (25 mg total) by mouth daily. Active tamsulosin (FLOMAX) 0.4 mg Cap 24 hr capsule Take 1 capsule (0.4 mg total) by mouth daily. Active Active Problems Problem Noted Date Diagnosed Date Intractable nausea and vomiting 01/02/2024 Intractable vomiting with nausea 12/29/2023 Diabetes Chronic atrial fibrillation with RVR Chronic anticoagulation Hiatal hernia Hypomagnesemia Ascending aortic aneurysm Mild late onset Alzheimer's dementia Social History Tobacco Use Types Packs/Day Years Used Date Smoking Tobacco: Former Cigarettes Smokeless Tobacco: Never Tobacco Cessation:Counseling Given: Not Answered Alcohol Use Standard Drinks/Week Comments Never 0 (1 standard drink = 0.6 oz pur e alcohol) Utilities Answer Date Recorded In the past 12 months, has t he [employer] gas, oil, or water Thubrikar Aortic Valve threatened to shut off services in your home? No 12/29/2023 Food Insecurity Answer Date Recorded Within the past 12 months, y ou worried that your food would run out before you got money to buy more. Never true 12/29/2023 Within the past 12 months, t he food you bought just didn't last and you didn't have money to get more. Never true 12/29/2023 Transportation Needs Answer Date Record ed In the past 12 months, has l ack of reliable transportation kept you from medical appointments, meetings, work or from getting things needed for daily living? No 12/29/2023 Financial Resource Strain Answer Date R ecorded How hard is it for you to pa y for the very basics like food, housing, medical care, and heating? Would you say it is: Somewhat hard 12/29/2023 Employment Answer Date Recorded Do you want help finding or keeping work or a job? I do not need or want help 12/29/2023 Family and Community Support Answer Neeraj e Recorded If for any reason you need h elp with day-to-day activities such as bathing, preparing meals, shopping, managing finances, etc., do you get the help you need? I don't need any help 12/29/2023 Feeling Lonely or Isolated 0 12/28 Educational Attainment Answer Date Jose rded Do you speak a language other than [place]an at [facility]? No 12/29/2023 Do you want help with school or training? For example, starting or completing job training or getting a high school diploma, GED or equivalent. No 12/29/2023 Physical Activity Answer Date Recorded Number of minutes of exercise per week 0 12/29/2023 Substance Use Answer Date Recorded How many times in the past y ear have you used prescription drugs for non-medical reasons? Never 12/29/2023 How many times in the past year have you used [place] legal drugs? Never 12/29/2023 Sex and Gender Information Value Date Recorded Sex Assigned at Not on file Legal Sex Male 12:49 PM CDT Gender Identity Not on file Sexual Orientation Not on file Last Filed Vital Signs Vital Sign Reading Time Taken Comments Blood Pressure 116/91 01/02/2024 9:28 AM EDT Pulse 81 01/02/2024 4:11 AM EDT Temperature 36.3 C (97.3 F) 01/02/2024 4:10 AM EDT Respiratory Rate 16 01/02/2024 5:47 AM EDT Oxygen Saturation 91% 01/02/2024 4:11 AM EDT Inhaled Oxygen Concentration - - Weight 117.9 kg (260 lb) 12/29/2023 5:00 PM EDT Height 177.8 cm (5' 10 ) 12/29/2023 5:00 PM EDT Body Mass Index 37.31 12/29/2023 5:00 PM EDT Plan of Treatment Not on file Insurance [facility] [employer] ACCESS HMO MAP Advance Directives For more information, please contact: [phone] * Full Code (Latest Code Status on File) Date Activated Date Inactivated Comments 12/29/2023 6:25 PM 01/02/2024 1:11 PM Care Teams Assembler Deck And Hull Relationship Specialty Start Date End Date Chaparro Almanza MD [address] [facility] [address] [place] [address] PCP - General General Internal Medicine 12/29/23
--- OUTSIDE RECORDS SUMMARY | 2025-04-01 04:42 | XMS_ITS | Patient Health Record ---
Author Organization [facility] Address [address] [place] [address] Care Team Providers Care [employer] Professor Name Role Phone Jeremie Schneider Primary Care Provider Migration, Provider Unavailable Unavailable Allergies No Known Allergies Reason For Referral No Information Medications Medication SIG (Take, Route, Frequency, Duration) Notes Start Date End Date Status PROAIR HFA 200 METERED INHAL 2 PUFFS QID 1 puff 3 times a day *Please review for potential replacement for e-prescription and drug interaction check* Active Citalopram Hydrobromide 10 MG 1 tab(s) orally once a day; Duration: 30 day(s) Active LORTAB 10/325 ORALLY QID *Please review f [...] tab(s) orally twic e a day Active Gabapentin 800 MG 1 tab(s) orally twic e a day Active Januvia 50 MG 1 tab(s) orally once a day; Duration: 30 day(s) Active Tresiba FlexTouch 100 UNIT/ML 28 units daily subcutaneously once a day Active Finasteride 5 MG 1 tab(s) orally once a day; Duration: 30 day(s) Active Social History Tobacco Use: Social History Observation Description Date Details (start date - stop date) Former Smoker NA - NA Smoking: Question Answer Notes Are you a: former smoker How long has it been since you last smoked? > 10 years Problems Problem Type SNOMED Code ICD Code Onset Dates Problem Status W/U Status Risk Notes Problem Diverticulitis (82992790) Diverticulitis (K57.92) Active confirmed Problem Controlled type 2 diabetes mellitus without complication, without long-term current use of insulin (E11.9) Active confirmed Problem Diverticulitis o f intestine without perforation or abscess without bleeding, unspecified part of intestinal tract (K57.92) Active confirmed Encounters Encounter Location Date Provider Diagnosis 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
--- OUTSIDE RECORDS SUMMARY | 2025-04-01 04:44 | XMS_ITS | Clinical Summary ---
Author Organization [facility] Address [address] [place] [address] Care Team Providers Care Chancery Clerk Name Role Phone Chaparro Almanza MD Primary Care Provider [phone] Allergies No known active allergies Medications Insulin Degludec (Tresiba) 100 UNIT/ML solution injection Inject 20 Units under the skin into the appropriate area as directed Daily. Active rivaroxaban (XARELTO) 20 MG tablet Take 1 tablet by mouth Daily. Active tamsulosin (FLOMAX) 0.4 MG capsule 24 hr capsule Take 1 capsule by mouth Daily. Active pioglitazone (ACTOS) 45 MG tablet Take 1 tablet by mouth Daily. Active metFORMIN (GLUCOPHAGE) 1000 MG tablet Take 1 tablet by mouth 2 (Two) Times a Day With Meals. Active magnesium oxide (MAG-OX) 400 MG tablet Take 1 tablet by mouth 3 (Three) Times a Day. Active gabapentin (NEURONTIN) 800 MG tablet Take 1 tablet by mouth 2 (Two) Times a Day. Active finasteride (PROSCAR) 5 MG tablet Take 1 tablet by mouth Daily. Active donepezil (ARICEPT) 10 MG tablet Take 1 tablet by mouth Every Night. Active ferrous sulfate 325 (65 FE) MG tablet Take 1 tablet by mouth Daily With Breakfast. Active citalopram (CeleXA) 10 MG tablet Take 1 tablet by mouth Daily. Active esomeprazole (nexIUM) 40 MG capsule Take 1 capsule by mouth Every Morning Before Breakfast. Active ondansetron (ZOFRAN) 4 MG tablet Take 1 tablet by mouth Every 8 (Eight) Hours As Needed for Nausea or Vomiting. Active midodrine (PROAMATINE) 5 MG tablet TAKE 1 TABLET BY MOUTH THREE TIMES DAILY BEFORE MEAL(S) 90 tablet 3 Active Active Problems Problem Noted Date Diagnosed Date Atrial fibrillation, persistent 06/10/2022 Family History Medical History Relation Name Comments Cancer Brother 1 Cancer Father Cancer Mother Dementia Sister 1 Lung disease Sister 2 Relation Name Status Comments Brother 1 Brother 2 Father Mother Sister 1 Sister 2 Social History Tobacco Use Types Packs/Day Years Used Date Smoking Tobacco: Former Cigarettes Tobacco Cessation:Counseling Given: Not Answered Alcohol Use Standard Drinks/Week Comments Never 0 (1 standard drink = 0.6 oz pur e alcohol) Abuse Screen Answer Date Recorded Unsafe at Home or Work/School Not on file Feels Threatened by Someone? Not on file 06/2023 Does Anyone Keep You from Co ntacting Others or Doint Things Outside the Home? Not on file 05/26/2023 Physical Sign of Abuse Present Not on file 1 Housing Stability Answer Date Recorded Current Living Arrangements Not on file 05/16 Potentially Unsafe Housing Conditions Not on dmitri e 05/26/2023 Family and Community Support Answer Neeraj e Recorded Help with Day-to-Day Activities Not on file 05/26/2023 Lonely or Isolated Not on file 05/26/2023 Employment Answer Date Recorded Do you want help finding or keeping work or a penny b? Not on file 05/26/2023 Disabilities Answer Date Recorded Concentrating, Remembering, or Making Decisions Difficulty Not on file 05/26/2023 Doing Errands Independently Difficulty Not on fi le 05/26/2023 Education Answer Date Recorded Help with school or training? Not on file Preferred Language Not on file 05/26/2023 Sex and Gender Information Value Date Recorded Sex Assigned at Not on file Legal Sex Male 12:00 PM EDT Gender Identity Not on file Sexual Orientation Not on file Last Filed Vital Signs Vital Sign Reading Time Taken Comments Blood Pressure 90/50 06/10/2022 3:18 PM EDT Pulse 75 06/10/2022 3:18 PM EDT Temperature - - Respiratory Rate - - Oxygen Saturation 96% 06/10/2022 3:18 PM EDT Inhaled Oxygen Concentration - - Weight 103 kg (226 lb) 06/10/2022 3:18 PM EDT Height 177.8 cm (5' 10 ) 06/10/2022 3:18 PM EDT Body Mass Index 32.43 06/10/2022 3:18 PM EDT Plan of Treatment Upcoming Encounters Date Type Department Care Team (Late st Contact Info) Description 05/16/2025 2:15 PM EDT Office Visit [facility] [address] [place] [address] Cindy Steiner, LIFT ELECTRICIAN [address] [place] [address] Health Maintenance Due Date Last Done Comments DIABETIC EYE EXAM 1950 DIABETIC FOOT EXAM 1950 URINE MICROALBUMIN-CREATININ E RATIO (uACR) 1949 TDAP/TD VACCINES (1 - Tdap) 1958 RSV Vaccine - Adults (1 - 1- dose 75+ series) 2014 Pneumococcal Vaccine 50+ (2 of 2 - PPSV23) 05/04/2017 03/09/2017 ANNUAL WELLNESS VISIT 06/10/2022 HEMOGLOBIN A1C 06/10/2022 ZOSTER VACCINE (2 of 2) 03/15/2024 01/19/2024 COVID-19 Vaccine (5 - 2023-2 5 season) 2024 12/29/2021, 05/24/2021, 10/15/2020, Additional history exists INFLUENZA VACCINE 05/16/2025 10/02/2024, , 05/14/2023, Additional history exists Insurance [employer] PPO Care Teams Chancery Clerk Relationship Specialty Start Date End Date Chaparro Almanza MD [address] [place] [address] PCP - General Internal Medicine 05/29/22
--- NOTE | 2025-04-01 05:06 | PC.NURSE ---
consent for ID obtained and signed Lidocaine pulled for provider.
[2025-04-01] MEDS: LIDOCAINE 1% W/EPI 1:100,000 20ML VIAL SQ (05:43)
[2025-04-01] MEDS: BACITRACIN ZINC OINT 30GM TUBE TP (05:44)
[2025-04-01] MEDS: AMOXICILLIN/CLAVULANATE POTASSIUM 875/125MG TABLET 1 EACH PO (05:44)
--- NOTE | 2025-04-01 05:46 | HMH.EDGENADL ---
Discharge Plan Disposition Patient Disposition: Home, Self-Care Condition: Good Prescriptions Prescriptions: New amoxicillin-pot clavulanate 875-125 mg tablet 1 tab PO BID Qty: 14 0RF No Action donepezil 10 MG tablet 10 mg PO HS tamsulosin 0.4 MG capsule 0.4 mg PO HS rivaroxaban 20 mg tablet 20 mg PO QPMWITHMEAL midodrine 5 mg tablet 5 mg PO TID esomeprazole magnesium 40 mg capsule,delayed release(DR/EC) 40 mg PO DAILY Patient Comments: TAKE 1 CAPSULE BY MOUTH ONCE DAILY insulin degludec [Tresiba FlexTouch U-100] 100 unit/mL (3 mL) insulin pen 20 unit SQ DAILY citalopram 20 mg tablet 20 mg PO DAILY Patient Comments: TAKE 1 TABLET BY MOUTH ONCE DAILY ferrous sulfate [FeroSul] 325 mg (65 mg iron) tablet 325 mg PO DAILY Patient Comments: TAKE 1 TABLET BY MOUTH ONCE DAILY magnesium oxide 400 mg (241.3 mg magnesium) Tablet 400 mg PO BID 30 Days Qty: 60 0RF docusate sodium 100 mg Capsule 100 mg PO DAILY 30 Days Qty: 30 0RF alprazolam 0.5 mg tablet 0.5 mg PO BIDP PRN (Reason: Anxiety) 10 Days Qty: 20 0RF gabapentin 800 MG tablet 800 mg PO BID 10 Days Qty: 20 0RF cefuroxime axetil 250 mg Tablet 500 mg PO BID 5 Days Qty: 20 0RF metformin 1,000 MG tablet 1,000 mg PO BIDWMEAL finasteride 5 MG tablet 5 mg PO DAILY hydrocodone-acetaminophen 10-325 mg tablet 1 tab PO QIDP PRN (Reason: Moderate Pain (Scale Score 5-6)) Patient Comments: TAKE 1 TABLET BY MOUTH 4 TIMES DAILY NEEDED FOR PAIN promethazine 25 mg tablet 12.5 mg PO Q6HP PRN (Reason: Nausea And Vomiting) Patient Comments: TAKE 1/2 (ONE-HALF) TABLET BY MOUTH EVERY 6 HOURS NEEDED FOR NAUSEA FOR 10 DAYS metoprolol succinate 25 mg tablet extended release 24 hr 25 mg PO BID Referrals Follow up/Referrals: Courtney Almanza MD [Primary Care Provider, Medical] - See instructions Activity Restrictions/Add. Instructions Additional Instructions/Restrictions: You were evaluated in the ER and are believed to be appropriate for discharge at this time. Continue taking all home medications as previously prescribed. Keep the wound clean and dry. Shower/bathe like normal. Twice a day wash the wound with warm soapy water, dry it, and apply the provided bacitracin ointment and then a Band-Aid. The bacitracin ointment should be used twice daily for 1 week. Take the prescribed antibiotics (amoxicillin?clavulanate) as directed, do not skip doses, do not stop taking them early. Make an appointment with your primary care doctor for reevaluation in 2-3 days. Return to the ER with any new, worsening, or otherwise concerning symptoms including but not limited to pain, fever, increased discharge. Clinical Impressions Clinical Impression: Abscess Instructions Patient Instructions: DI for Skin Abscess Print Language Print Language: Thai Discharge ED Provider: Marco Campos Adult HPI General Chief complaint: Skin/Abscess/Foreign Body Stated complaint: lump on throat Time Seen by Provider: 04/01/25 04:27 Mode of Arrival: Ambulatory Source of Information: Patient Description of Symptoms (Recalled from ER Triage Doc. by RN): pt presents to the ED d/t complaints of red lump on anterior of neck muscle. pt states he recognized it a couple of days ago History of Present Illness HPI narrative: 85-year-old male with history of diabetes presents to the ER complaining of a red lump on the front of his neck. Patient shows it to me and it is on the very upper part of his sternum where the neck joins the chest slightly to the right side of center. Patient states he noticed it a few days ago and has been squeezing on it and it keeps getting bigger and more painful. It is also red. He is concerned for possible infection and states it came up quite quickly but he has no difficulty breathing or swallowing, no change in appetite, no fevers or chills, no chest pain, no abdominal pain, nausea, vomiting, or diarrhea, no other associated symptoms. Related Data Home Medications ?Medication ?Instructions ?Recorded ?Confirmed finasteride 5 mg tablet 5 mg PO DAILY 05/12/21 11/02/24 metformin 1,000 mg tablet 1,000 mg PO BIDWMEAL 05/12/21 11/02/24 donepezil 10 mg tablet 10 mg PO HS 03/26/22 11/02/24 tamsulosin 0.4 mg capsule 0.4 mg PO HS 03/26/22 11/02/24 rivaroxaban 20 mg tablet 20 mg PO QPMWITHMEAL 04/27/22 11/02/24 esomeprazole magnesium 40 mg 40 mg PO DAILY 12/05/22 11/02/24 capsule,delayed release insulin degludec 100 unit/mL (3 20 unit SQ DAILY 12/05/22 11/02/24 mL) subcutaneous pen (Tresiba FlexTouch U-100 insulin) midodrine 5 mg tablet 5 mg PO TID 12/05/22 11/02/24 citalopram 20 mg tablet 20 mg PO DAILY 11/27/23 11/02/24 ferrous sulfate 325 mg (65 mg 325 mg PO DAILY 11/27/23 11/02/24 iron) tablet (FeroSul) hydrocodone 10 mg-acetaminophen 1 tab PO QIDP PRN Moderate Pain 12/19/23 11/02/24 325 mg tablet (Scale Score 5-6) promethazine 25 mg tablet 12.5 mg PO Q6HP PRN Nausea And 12/19/23 11/02/24 Vomiting metoprolol succinate 25 mg 25 mg PO BID 12/28/23 11/02/24 tablet,extended release 24 hr Previous Rx's ?Medication ?Instructions ?Recorded alprazolam 0.5 mg tablet 0.5 mg PO BIDP PRN Anxiety 10 days 11/29/23 #20 tabs docusate sodium 100 mg capsule 100 mg PO DAILY 30 days #30 caps 11/29/23 gabapentin 800 mg tablet 800 mg PO BID 10 days #20 tabs 11/29/23 magnesium oxide 400 mg (241.3 mg 400 mg PO BID 30 days #60 tabs 11/29/23 magnesium) tablet cefuroxime axetil 250 mg tablet 500 mg (2 x 250 mg) PO BID 5 days 03/27/24 #20 tabs amoxicillin 875 mg-potassium 1 tab PO BID #14 tabs 04/01/25 clavulanate 125 mg tablet Allergies Allergy/AdvReac Type Severity Reaction Status Date / Time No Known Allergies Allergy Verified 11/02/24 10:43 [facility] Disclaimer: The information contained in this section may have been updated after the patient was seen, as this information can be updated by other users. Medical History Abscess of lung Acute diverticulitis Arthritis Diabetes Afib Hypotension Abnormal electrocardiography Dyspnea Family History Other Family history of cancer Social History Smoking Status: Never smoker alcohol intake: never substance use type: denies use current occupational status: disabled Travel in the last 8 weeks?: Inside the [place] household members: spouse and children housing: house Have you lived/traveled outside US in past 30 days?: No Contact w/someone who lives/traveled outside US past 30 days?: No Exposure to someone with infectious disease in past 14 days?: No Do you have a fever (greater than 100.4 F or 38 C)?: No Have you tested positive for COVID-19?: No Exposed to someone with COVID-19 in past 14 days?: No Do you have a sore throat?: No Do you have a cough?: No Do you have any weakness?: No Do you have any diarrhea?: No Are you experiencing any unusual bleeding?: No Do you have any muscle aches/pain?: No Do you have any abdominal pain?: No Are you experiencing loss of taste or smell?: No Other Medical History Have you received the Flu Vaccine for this season: No Have you received the Pneumonia Vaccine: Yes ROS Obtained: Yes Systems reviewed as appropriate & no additional complaints except as documented Per HPI Physical Exam General General appearance: alert and in no apparent distress Head Head exam: atraumatic and normocephalic Eye Eye exam: Present PERRL and EOMI ENT ENT exam: Present mucous membranes moist Neck Neck exam: Present normal inspection, full ROM and trachea midline; Absent tenderness, meningismus or lymphadenopathy Chest Chest inspection: Present symmetric chest wall rise and abscess (Approximately 2 cm diameter area of raised fluctuance, mobile, obviously in the subcutaneous tissue overlying the upper right edge of the sternum) Respiratory Respiratory exam: Present normal lung sounds bilaterally; Absent respiratory distress, wheezes or stridor Cardiovascular Cardiovascular exam: Present regular rate and normal rhythm Abdominal Exam Abdominal exam: Present soft; Absent distention or tenderness Extremities Exam Extremities exam: Present full ROM Neurological Exam Neurological exam: Present alert and oriented X3; Absent motor sensory deficit Psychiatric Psychiatric exam: Present normal affect and normal mood Skin Skin exam: Present warm and dry Medical Decision Making Medical Records Medical records reviewed: Yes I reviewed the patient's medical records. Screening: Per USPSTF and CDC recommendations, given the prevalence of disease in our region, it is our hospital?s policy to screen for HIV and viral Hepatitis for all patients aged 18 and over and those with ongoing risk factors. Antonio Inquiry Pt receiving controlled substance: No Vital Signs: 04/01/25 04:35 Temperature 97.9 F Temperature Source Oral Pulse Rate [Right Radial] 85 Respiratory Rate 16 Blood Pressure [Right Arm] 130/55 L Blood Pressure Mean [Right Arm] 80 Blood Pressure Position [Right Arm] Supine 02 Sat by Pulse Oximetry 96 Oxygen Delivery Method Room Air Orders (Tests/Meds): ED MEDICATIONS Discontinued Medications Generic Name Dose Route Start Last Admin Trade Name Freq PRN Reason Stop Dose Admin Amoxicillin/Clavulanate Potassium 1 each 04/01/25 05:34 Amoxicillin/Clavulanate Potassium 875/125mg Tablet PO 04/01/25 05:35 ONCE ONE Bacitracin 1 gm 04/01/25 05:38 Bacitracin Zinc Oint 30gm Tube TP 04/01/25 05:39 ONCE ONE Lidocaine/Epinephrine 2 ml 04/01/25 04:36 Lidocaine 1% W/Epi 1:100,000 20ml Vial SQ 04/01/25 04:37 ONCE ONE ORDERS Category Date Time Status POCUS Point of Care (ER Only) Stat Exams 04/01/25 04:31 Ordered Wound Culture and Gram Stain Stat Micro 04/01/25 05:35 Received Medical Decision Narrative: In summary, 85-year-old male with comorbidities described in the HPI presents to the ER with bump on the neck/chest area. On initial evaluation patient is hemodynamically stable, afebrile, overall well-appearing, he has an erythematous raised fluctuant mass overlying the upper right edge of the sternum near the base of the neck, it is clearly in the subcutaneous tissue and mobile. There is only mild associated induration. It is not attached to any deep structures. Patient has no tenderness of the chest or neck, all neck structures are normal and midline, no stridor or difficulty swallowing, no evidence of airway impingement or problems with the throat related to the mass. Differential diagnosis includes but is not limited to ingrown hair, abscess, cellulitis. I considered involvement of deep structures or more insidious source such as malignancy but have extremely low suspicion for this based on the onset of symptoms and physical exam. I performed [id number] bedside ultrasound demonstrating abscess up to 1.5 cm with only slight associated cellulitis. There is no involvement of deep structures or evidence of tunneling so I am comfortable draining this abscess in the ER. Written consent was provided by patient for the procedure. Ultrasound-guided incision and drainage was performed, see procedure notes for details. Wound culture collected. Bacitracin ointment applied to the wound, patient received Augmentin in the ER and this was provided as prescription as well. Bacitracin was provided to the patient for wound care. Patient and family at bedside were given instructions on continued wound care, symptomatic monitoring and management, medication use, follow-up, and tricked return precautions for the ER. They indicated understanding and the patient was discharged in stable condition Procedures Risk/Benefits of Procedure(s) Were Explained: Yes (Written consent provided by patient) Abscess I/D Site: chest (Upper right edge of the sternum) Side (if applicable): right Sedation/analgesia: none Local Anesthetic: lidocaine 1% and with epi Amount of anesthesia used (mL): 0.5 Technique: incised with #11 blade (Ultrasound used to identify the appropriate location to incise the abscess for best outcome) Amount of fluid expressed (mL): 1 Irrigation: Yes (Sterile saline, also deloculated the abscess) Packing used?: none Miscellaneous Procedure Procedure Performed: Indication: Soft tissue redness, swelling, fluctuance Identified structures: Subcutaneous tissues of upper chest Location: Upper chest at the upper, right edge of the sternum Findings: Abscess up to 1.5 cm with mild associated cellulitis Impression: Abscess Images were saved saved to the permanent archive. The study was technically adequate. Soft tissue CPT codes Chest wall: [id number] This study was performed by me, and I personally interpreted all images/videos. Based on my clinical judgment, these images were adequate and did not necessitate further imaging. Critical Care Critical Care Time Critical Care Time: No
--- NOTE | 2025-04-01 05:49 | PC.NURSE ---
bacitracin applied to wound and bandaid placed over the top
[2025-04-01 05:50] VITALS: BP 138/52; PULSE 69; RESP 16; TEMP 36.6; O2SAT 98
[2025-04-01 06:00] VITALS: BP 138/52; PULSE 69; RESP 18; TEMP 36.6; O2SAT 98
--- NOTE | 2025-04-04 18:21 | PC.NURSE ---
I discussed the pts final wound culture results with . No change needed to his treatment.
== END 2025-04-01 06:01 | disposition home or self-care (01) ==
PROVIDERS: Emergency Provider Emergency Medicine; PCP Internal Medicine
DX: L02.11 Cutaneous abscess of neck (principal)
CPT/HCPCS: 10060; 10061; 87070; 87077; 87186; 87205; 99283; 99284; J2004

== ENCOUNTER 2025-06-01 13:38 | Inpatient (IN) | payer MEDICARE, SELFPAY ==
--- OUTSIDE RECORDS SUMMARY | 2024-11-18 17:30 | XMS_ITS ---
Author Organization [facility] Address [address] [place] [address] Care Team Providers Care Cook Chili Name Role Phone Jeremie Schneider Primary Care Provider [phone] Migration, Provider Unavailable Unavailable REASON FOR VISIT [facility] To [facility] Conversion Encounter Medications Medication SIG (Take, [...] [address] [place], [place] [address] 11/18/2024 Provider Migration Plan Of Treatment No Information Progress Notes * Boubacar SOTODOB:1940 (85 yo M)Acc No.[id number]:11/18/2024 Patient: Boubacar HOBSON Provider: Philly Torres :1940 A ge:84 Y S ex:Male Date:11/18/2024 Address:[address] [place] [address] [facility] Pcp:Jeremie Schneider Subjective: * Chief Complaints: * [...] Electronic signature of Prov ider Migration on 06/01/2025 at 01:57 PM EDT Sign off status: Pending * Provider: Philly Torres Date: 0 11/18/2024 Generated for Eliel love/Mani/Minerva on: 1 01:57 PM EDT
[2025-06-01] VITALS (14 sets, daily range): BP systolic 108–152; BP diastolic 62–81; PULSE 97–110; RESP 18; TEMP 36.8–37.2; O2SAT 91–99; BMI 32.7; BMI 32.2
--- OUTSIDE RECORDS SUMMARY | 2025-06-01 13:56 | XMS_ITS | Clinical Summary ---
Author Organization Address [address] [place] [address] Care Team Providers Care Production Worker Name Role Phone Unknown, Attending Provider Primary [...] therelease of HIV test results or diagnoses. [id number] Allergies No known active allergies Medications [...] Screening 06/26/2023 06/26/2022 Immunization: COVID-19 ( season) 2025 12/29/2021, 05/24/2021, 10/15/2020, Additional history exists Immunization: [...] BLOOD ORDERABLES Final Resul t [facility] [address] [place] [address], [facility] from Last 3 Months or Most Recently Relevant to Health Maintenance Insurance [place] Advance Directives For more information, please contact: [phone] * Full Code (Latest Code Status on File) Date Activated Date Inactivated Comments 06/26/2022 11:06 PM 06/30/2022 7:56 PM Care Teams Production Worker Relationship Specialty Start Date End Date Unknown, Attending Provider PCP - General 06/26/22
--- OUTSIDE RECORDS SUMMARY | 2025-06-01 13:56 | XMS_ITS | Clinical Summary ---
Author Organization Healthcare Address [address] [place] [address] Care Team Providers Care Shared Services And Outsourcing Manager Name Role Phone Unavailable Primary Care Provider [...]
--- OUTSIDE RECORDS SUMMARY | 2025-06-01 13:57 | XMS_ITS | Continuity of Care Document ---
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 Pruritic erythematous rash. Exact etiology is unknown clear. As patient had ticks on his body earlier this summer we will check Lyme disease antibody screen with reflex to Western blot. Prescribed triamcinolone cream 1% twice daily to his affected rash. Avoid the face and genitalia. Patient is given referral to Doctor William Peterson in the next 2 to 3 weeks. Will check sedimentation rate to screen for less likely vasculitis 2. Chronic kidney disease stage III. Check CMP today. Drink at least 40 ounces of water daily 3. Atrial fibrillation. Heart rate controlled. Continue Xarelto 20 mg daily 4. Type 2 diabetes mellitus with hyperglycemia. Continue Tresiba insulin 28 units daily and metformin at 1000 mg twice daily with low-carb diet 5. Systolic heart failure. Continue low-sodium diet and furosemide 20 mg daily 6. Dementia. Continue memantine 5 mg twice daily 7. Osteoarthritis bilateral knees. Continue oxycodone/acetami nophen 7.5/325 mg 1 tablet every 6 hours as needed for pain 8. RTC in 2 months. Should have high-dose flu shot at that time [email or web address] Not available 04/18/2025 22:19:34 Plan of Treatment Reminders Order Date Submit Date Provider Last Modified By Organization Details Last Modified Time Details Appointments RECHECK 2024 10:45A M BEKAH ALMANZA MD Not available Not available Not available NEUROLOGY RECHECK 2024 10:30A M MAURILIO FERRARA DO Not available Not available Not available Lab lyme disease igg+igm, serum, reflex western blot 2024 025 [facility], [address] [place] [address], [id number], 04/20/2025 15:13:21 ESR (erythroc yte sedimenta tion rate), blood 2024 025 [facility], [address] [place] [address], [phone], 04/18/2025 20:12:08 Referral dermatolo gist referral - in 7-10 days 2024 025 [email or web address] Nicholas Thomas MD, [address] [place] [address], [id number], 05/30/2025 08:30:09 Procedures None recorded. Surgeries None recorded. Imaging None recorded. Medication Orders triamcino lone acetonide 0.1 % topical cream 2024 025 [facility] [phone], [address], 04/18/2025 12:13:02 Patient TargetsNo targets recorded. Patient InstructionsNo instructions recorded. Reason for Referral Inbound Sales Manager Referral for P ruritic rash in 7-10 days Referring Physician: Bekah Almanza, Internal Medicine, Encounter Date: 04/18/2025 Results Created Date Observation Date Name Description Value Unit Range Abnormal Flag Note LastModifiedBy Organization Detail LastModifiedTime 04/18/2004/18/2025 ESR, AUTOM ATED ESR, automated 1 mm 0-19 normal Not Available [facility] [address] [place] [address], [id number], 04/18/2025 20:12:08 04/18/20 25 04/20/2025 LYME AB SCR, REFLE X WB lyme Ab screen <0.90 index normal Index Inter preta tion ----- ----- ----- ---- < 0.90 Negat natalie 0.90- 1.09 Equiv ocal > 1.09 Posit natalie As recom sally d by the Food and Drug Admin istra tion (FDA) , all sampl es with posit natalie or equiv ocal resul ts in a Borre dia burgd orfer i antib magen scree n will be teste d using a blot metho d. Posit natalie or equiv ocal scree sarmad test resul ts shoul d not be inter prete d as truly posit natalie until verif ied as such using a suppl ement al assay (e.g. , B. burgd orfer i blot) . The scree sarmad test and/o r blot for B. burgd orfer i antib odies may be false ly negat natalie in early stage s of Lyme disea se, inclu ding the perio d when eryth jamil migra ns is appar ent. Not Available [facility] [address] [place] [address], [phone], 04/20/2025 15:13:21 Result Notes None recorded. Problems Name Problem SNOMED Code Status Onset Date Resolution Date Notes Provider Name and Address Organization Details Recorded Time Chronic ki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 2 diabetes mellitus 642506654845 Active Not Available [facility] 4 06:45:56 Neuropathy due to type 2 diabetes mellitus 4660602441647 06 Active Not Available [facility] 4 06:46:25 Hypercoagu lability state 47946859 Active Not Available [facility] 4 06:46:31 Uncontroll ed type 2 diabetes mellitus 383496367 Active Not Available [facility] 4 06:33:25 Severe recurrent major depression without psychotic features 69130000 Active Not Available [facility] 5 21:04:25 Benign prostatic hyperplasi a with outflow obstructio n 985841796 [place] 20[place] [address] [place] [address], [phone] , [facility] 3 15:01:56 Bilateral osteoarthr itis of knees 1548776480949 07 Active 2022 BEKAH ALMANZA MD [address] [place] [address], [id number] , [facility] 3 15:01:59 Chronic atrial fibrillati on 098236602 Active 2022 BEKAH ALMANZA MD [address] [place] [address], [address] , [facility] 3 15:02:00 Chronic kidney disease stage 3 533538797 Active 2022 BEKAH ALMANZA MD [address] [place] [address], [address] , [facility] 3 15:02:04 Chronic obstructiv e pulmonary disease 73432928 Active 2022 BEKAH ALMANZA MD [address] [place] [address], [address] , [facility] 3 15:02:06 Chronic systolic heart failure 636578419 Active 2022 BEKAH ALMANZA MD [address] [place] [address], [address] , [facility] 3 15:02:07 Generalize d anxiety disorder 88266785 Active 2022 BEKAH ALMANZA MD [address] [place] [address], [address] , [facility] 3 15:02:09 Obesity 714936588 Active 2022 BEKAH ALMANZA MD [address] [place] [address], [address] , [facility] 3 15:02:11 Moderate dementia 0456615346074 00 Active 2022 BEKAH ALMANZA MD [address] [place] [address], [address] , [facility] 3 15:02:13 Peripheral neuropathy due to type 2 diabetes mellitus 9901633363059 Active 2022 BEKAH ALMANZA MD [address] [place] [address], [address] , [facility] 3 15:02:15 Renal disorder due to type 2 diabetes mellitus 908136013 Active 2022 BEKAH ALMANZA MD [address] [place] [address], [address] , [facility] 3 15:02:18 Aneurysm of thoracic aorta 292953311 Active 2022 BEKAH ALMANZA MD [address] [place] [address], [address] , [facility] 3 15:02:20 Vitamin B12 deficiency (non anemic) 21103588 Active 2022 BEKAH ALMANZA MD [address] [place] [address], [address] , [facility] 3 15:02:22 History of deep vein thrombosis 963908664 Active 2022 BEKAH ALMANZA MD [address] [place] [address], [address] , [facility] 3 18:35:02 Anemia 250573414 Active 2022 BEKAH ALMANZA MD [address] [place] [address], [address] , [facility] 3 18:35:11 Type 2 diabetes mellitus 00682605 Active 2022 BEKAH ALMANZA MD [address] [place] [address], [address] , [facility] 3 15:05:34 Pain of bilateral knee joints 8099288615881 04 Active 2022 BEKAH ALMANZA MD [address] [place] [address], [address] , [facility] 3 15:05:46 Ophthalmic examinatio n and evaluation Active 2022 BEKAH ALMANZA MD [address] [place] [address], [address] , [facility] 3 15:06:26 Dementia 60712281 Active 2023 BEKAH ALMANZA MD [address] [place] [address], [address] , [facility] 4 06:56:51 Nausea and vomiting 89240003 Active 2023 BEKAH ALMANZA MD [address] [place] [address], [address] , [facility] 4 21:27:40 Administra tion of viral vaccine Active 2023 BEKAH ALMANZA MD [address] [place] [address], [address] , [facility] 4 06:43:44 Hyperglyce isabela due to type 2 diabetes mellitus 5664447969231 09 Active 2023 BEKAH ALMANZA MD [address] [place] [address], [address] , [facility] 4 13:25:23 Atrial fibrillati on 44332557 Active 2023 BEKAH ALMANZA MD [address] [place] [address], [address] , [facility] 4 13:26:04 Recurrent urinary tract infection 707253124 Active 2023 BEKAH ALMANZA MD [address] [place] [address], [address] , [facility] 4 13:26:26 Onychomyco sis 930258071 Active 2023 BEKAH ALMANZA MD [address] [place] [address], [address] , [facility] 4 13:26:27 Mood swings 83306670 Active 2023 BEKAH ALMANZA MD [address] [place] [address], [address] , [facility] 4 13:26:29 Administra tion of influenza vaccine Active 2023 BEKAH ALMANZA MD [address] [place] [address], [address] , [facility] 4 23:29:03 Pain of left shoulder joint 3768604018611 9109 Active 2024 BEKAH ALMANZA MD [address] [place] [address], [address] , [facility] 5 06:55:13 Disorder of nervous system due to type 2 diabetes mellitus 458233946 Active 2024 BEKAH ALMANZA MD [address] [place] [address], [address] , [facility] 5 06:55:19 Senile dementia 11360192 Active 2024 MAURILIO FERRARA, [address] [place] [address], [address] , [facility] 5 14:59:33 Pruritic rash 37383619 Active 2024 BEKAH ALMANZA MD [address] [place] [address], [address] , [facility] 22:19:34 Problem Notes None recorded. Procedures Surgical History Date Name Laterality Status Provider Name and Address Organization Details Recorded Time 04/13/20 24 Social Determinants of Health completed DONAVON PEDROZA MD [address] [place] [address], [address], [facility] 04/13/2024 15:40:11 04/04/20 24 TCM completed Rosio Reilly [facility] 03/31/2024 10:46:40 11/15/19 24 operation on bone injury of femur completed Jennie Tobar [facility] 01/31/2025 14:38:06 08/16/19 21 operation on lung completed Jennie Tobar [facility] 01/31/2025 14:37:15 operation on hip joint completed Aishwarya Rodriguez [facility] 12/17/2023 14:16:02 Imaging Results None recorded. Procedure Notes None [...] chloride ER 10 mEq capsule,e xtended release Take 1 capsule by mouth once daily in the morning 2024 active Not Available Not Available Not Avai lable cefuroxim e axetil 250 mg tablet TAKE [...] DAILY NEEDED FOR UP TO 14 DAYS. 01/31 completed not on med list (02/01/20) Not Available Not Available Not Available alprazola m 1 mg tablet TAKE [...] TABLET BY MOUTH EVERY 8 HOURS NEEDED 01/31 completed not on med list (02/01/20) Not Available Not Available Not Available gabapenti n 400 mg capsule Take 1 capsule by mouth twice daily 2024 active Not Available Not Available Not [...] e Not Available Not Available Not Available triamcino lone acetonide 0.1 % topical cream APPLY A THIN LAYER TO THE AFFECTED AREA(S) BY TOPICAL ROUTE TWICE A DAY active Not Available Not Available No t Available bisoprolo l fumarate 5 mg tablet TAKE 1/2 (ONE-BECKY F) TABLET BY MOUTH ONCE DAILY 01/19 completed Not Available Not Available Not Available oxycodone -acetamin ophen 5 mg-325 mg tablet TAKE 1 TABLET BY MOUTH EVERY 6 HOURS NEEDED FOR SEVERE PAIN 11/16 completed Not Available Not Available Not Available alprazola m 0.5 mg tablet Take 1 tablet by mouth twice daily as needed for anxiety 2024 active Not Available Not Available Not Avai lable citalopra m 20 mg tablet TAKE 1 TABLET BY MOUTH ONCE DAILY 05/29 completed Not Available Not Available Not Available magnesium oxide 400 mg (241.3 mg magnesium ) tablet Take 1 tablet every day by oral route. 01/31 completed not on med list (02/01/20) Not Available Not Available Not Available tamsulosi n 0.4 mg capsule Take 1 capsule every day by oral route. 2024 active Not Available Not Available Not Avai lable gabapenti n 800 mg tablet TAKE 1 [...] Available Not Available metformin 1,000 mg tablet Take 1 tablet by mouth twice daily 2024 active Not Available Not Available Not Avai lable esomepraz ole magnesium 40 mg capsule,d elayed [...] MOUTH EVERY 6 HOURS NEEDED FOR NAUSEA active Not Available Not Available No t Available furosemid e 20 mg tablet TAKE 1 TABLET BY MOUTH ONCE DAILY IN THE MORNING active Not Available Not Available No t Available metoprolo l succinate ER 25 mg tablet,ex tended release 24 hr 01/31 completed not on med list (02/01/20) Not Available Not Available Not Available levofloxa [...] Not Available finasteri de 5 mg tablet TAKE 1 TABLET BY MOUTH ONCE DAILY active Not Available Not Available No t Available Lortab 2.5 mg-500 mg tablet 07/28 completed Medicati on Descript ion: acetamin ophen-hy drocodon e; Route:or al; refills: 0; Quantity :6 tablet Not Available Not Available Not Available amoxicill in 875 mg-potass ium clavulana te 125 mg tablet TAKE 1 TABLET BY MOUTH TWICE DAILY 04/18 completed Not Available Not Available Not Available Flexeril 10 mg tablet 01/31 completed not on med list (02/01/20) Not Available Not Available Not Available escitalop remy 10 mg tablet Take 1 tablet every day by oral route. 01/31 completed not on med list (02/01/20) Not Available Not Available Not Available memantine 5 mg tablet Take 1 tablet by mouth twice daily 2024 active Not Available Not Available Not Avai lable gabapenti n 400 mg tablet Take 1 tablet twice a day by oral route for 30 days. 2024 active Not Available Not Available Not Avai lable Xanax Daily 07/27 completed Duration : 20 days;Geoffrey quency: daily;Al t Frequenc y: prn;Medi cation Descript ion: alprazol am; Dosage:1 ; Route:or al; refills: 0; Quantity :20 tablet Not Available Not Available Not Available Glucophag e Two times a day 12/12 /2023 completed Duration : 30 days;Geoffrey quency: bid;Medi cation Descript ion: metformi n; Route:or al; refills: 0; Quantity :60 tablet Not Available Not Available Not Available Amaryl Daily 07/27 completed Duration : 30 days;Geoffrey quency: daily;Me dication Descript ion: glimepir mosies; Dosage:1 ; Route:or al; refills: 0; Quantity :30 tablet Not Available Not Available Not Available Mobic Daily 07/27 completed Frequenc y: daily;Me dication Descript ion: meloxica m; Dosage:1 ; Route:or al; refills: 5; Quantity :30 tablet Not Available Not Available Not Available BD Ultra-Fin e Short Pen Needle 31 gauge x 5/16 USE DIRECTED 2024 active Not Available Not Available Not Avai lable quetiapin e 50 mg tablet TAKE ONE-HALF TABLET BY MOUTH UP TO THREE TIMES DAILY active Not Available Not Available No t Available ferrous sulfate 324 mg (65 mg iron) tablet,de layed release Take 1 tablet by mouth once daily 2024 active Not Available Not Available Not Avai lable FeroSul 325 mg (65 mg iron) tablet TAKE 1 TABLET BY MOUTH ONCE DAILY 01/31 completed not on med list (02/01/20) Not Available Not Available Not Available diclofena c 1 % topical gel APPLY 4 GRAMS TO EACH KNEE AND LEFT SHOULDER BY TOPICAL ROUTE THE AFFECTED AREA(S) BY TOPICAL ROUTE 2 TIMES PER DAY 01/31 completed not on med list (02/01/20) Not Available Not Available Not Available Xarelto 20 mg tablet Take 1 tablet by mouth once daily 2024 active Not Available Not Available Not Avai lable Tresiba FlexTouch U-100 insulin 100 unit/mL (3 mL) subcutane ous pen INJECT 28 UNITS SUBCUTAN EOUSLY ONCE DAILY active Not Available Not Available No t Available Narcan 4 mg/actuat ion nasal spray Take 4 mg as needed by nasal route for 1 day. 2024 active Not Available Not Available Not Avai lable OneTouch Ultra2 Meter active Not Available Not Available Not Available OneTouch Delica Plus Lancet 33 gauge USE 1 LANCET TO CHECK GLUCOSE ONCE DAILY active Not Available Not Available No t Available Lagevrio 200 mg capsule (EUA) TAKE 4 CAPSULES BY MOUTH TWICE DAILY FOR 5 DAYS 07/27 completed Not Available Not Available Not Available Vitals Date Recorded Body height Oxygen saturation Oxygen saturation in Arterial blood by Pulse oximetry Heart rate Body mass index (BMI) Body weight Systolic And Diastolic Provider Name and Address Organization Details Last Updated DateTime 5 177.8 cm 97 % 97 % 90 /min 33 kg/m2 582023. 25 g 132/76 mm[Hg] Radha Lemosrley [facility] 5 11:08:20 Social History Question Answer Notes LastModified by [employer] Details LastModified Time Tobacco Smoking Status [facility] 15:42:37 What Is The Highest Grade Or Level Of School You Have Completed Or The Highest Degree You Have Received? [id number] Information not available 01/31/2025 When Did You Quit Smoking? 6-10yearssin celastcigare tte Information not available 01/19/2024 What Was The Date Of Your Most Recent Tobacco Screening? 06/07/2024 Information not available 06/07/2024 What Is Your Relationship Status? Information not available 01/31/2025 Has Tobacco Cessation Counseling Been Provided? No Information not available 05/14/2023 Sex: Unknown Functional Status Question Answer Note LastModified by [employer] Details LastModified Time Do you use any illicit or recreational drugs? No Information not available 05/14/2023 Do you or have you ever used any other forms of tobacco or nicotine? No Information not available 05/14/2023 What is your level of alcohol consumption? Occasional Information not available 05/14/2023 Are you currently employed? No retired Information not available 01/31/2025 Mental Status None recorded. Family History Relationship Description Onset Age of this Age Resolved Age Notes LastModified by Organization Details LastModified Time Sister Alzheimer's disease [email or web address] Not available 2024 14:34:29 Sister Dementia [email or web address] Not availabl e 01/31/2025 14:34:52 Sister Diabetes mellitus [email or web address] Not available 2024 14:34:57 Brother Family history of malignant neoplasm [email or web address] Not available 2024 14:34:44 Father Family history of malignant neoplasm [email or web address] Not available 2024 14:34:44 Mother Family history of malignant neoplasm [email or web address] Not available 2024 14:34:44 Medical History Condition Response Parkinson's Disease N Alzheimer's Y Migraines N Glaucoma N Depression N Neurological Problems Y Anxiety Disorder Y Diabetes Y Arthritis Y Tuberculosis N Cancer N Stroke N High Cholesterol N Heart Disease Y Hypertension N Immunizations Vaccine Type Date Status Note Provider Nam e and Address Organization Details Recorded Time COVID-19, mRNA, LNP-S, PF, 30 mcg/0.3 mL dose 1 completed Jasmin Madden [facility] 12/17/2023 14:03:42 COVID-19, mRNA, LNP-S, PF, 30 mcg/0.3 mL dose 1 completed Jasmin Madden [facility] 12/17/2023 14:03:42 COVID-19, mRNA, LNP-S, PF, 30 mcg/0.3 mL dose 1 completed Jasmin Madden [facility] 12/17/2023 14:03:42 COVID-19, mRNA, LNP-S, PF, 30 mcg/0.3 mL dose, alma-sucrose 2 completed Jasmin Madden [facility] 12/17/2023 14:03:42 Pneumococcal conjugate PCV 13 7 completed Jasmin Madden [facility] 12/17/2023 14:03:42 Influenza, high-dose, trivalent, PF 6 completed Jasmin Madden [facility] 12/17/2023 14:03:42 Influenza, high-dose, trivalent, PF 5 completed Cookie Mari [facility] 01/12/2025 14:14:39 Influenza, high-dose, quadrivalent, PF 3 completed BEKAH ALMANZA MD [address] [place] [address], [address], [facility] 05/16/2023 21:27:46 zoster recombinant 4 completed BEKAH ALMANZA MD [address] [place] [address], [address], [facility] 01/20/2024 06:33:46 Influenza, high-dose, trivalent, PF 4 completed [facility]24 11:58:43 Past Encounters Encounter ID Performer Location Encounter Start Date Encounter Closed Date Diagnosis/Indication Diagnosis SNOMED-CT Code Diagnosis ICD10 Code Diagnosis IMO Codes Diagnosis Note [id number] BEKAH ALMANZA MD [facility] [place] [id number] [facility] [place] [address] 04/18/2025 10:50:05 04/18/2025 12:42:51 Generalized anxiety disorder 11649243 F41.1 Chronic sy stolic heart failure 702256044 I50.22 Chronic at rial fibrillation 820515228 I48.20 History of deep vein thrombosis 793509870 Z86.718 Hyperglyce isabela due to type 2 diabetes mellitus 1669507395 43945 E11.65 Vitamin B1 2 deficiency (non anemic) 88224607 E53.8 Obesity 672681881 E66.9 Chronic ki dney disease stage 3 434389549 N18.30 Benign pro static hyperplasia with outflow obstruction 228763811 N40.1 Anemia 906086327 D64.9 Bilateral osteoarthritis of knees 3319537836 64500 M17.0 Dementia 85843212 F03.90 Peripheral neuropathy due to type 2 diabetes mellitus 5586533103 107 E11.42 Chronic ob structive pulmonary disease 72184599 J44.9 Pruritic rash 93144988 L 29.89 [id number] Health Concerns Section Related Observation LastModified by Organization Detai ls LastModified Time None Recorded Concern Status LastModified by Organization Details LastModified Time None Recorded Payers Encounter Date Sequence Insurance Name Policy Number Policy Loera Covered Member ID Loera Member ID Guarantor Name 04/18/2025 1 [employer] (MEDICARE REPLACEMENT/ ADVANTAGE - PPO) [id number] Boubacar Bxater [id number] Boubacar Baxter Notes Date Note Type Note Provider Name and Address Organization Details Recorded Time 04/18/2025 text/html ROS as noted in the HPI Interval hospitalizations:[facility] regarding a bump on his chestMedication changes:no changesOther physician visits:noExercise level:noneTobacco or alcohol use:noHave you had any recent chest pain or unusual dyspnea ?noMr. Baxter is a 85-year-old who comes the office today with his and granddaughter. He has had a very pruritic rash on his arms and legs for about 2 to 3 weeks. About 3 weeks ago he went to the emergency room at [facility] due to a tender painful sebaceous cyst or abscess in the upper midsternal region. He had a incision and drainage of that at that time and was given oral Augmentin which he finished within the past 10 days. He has been trying some 1% hydrocortisone cream on his rash without much benefit. He denies being out in the weeds or bazzi or garden. He did find 1 or 2 ticks on his skin earlier this summer. BEKAH ALMANZA MD [address] [place] [address], [phone], [facility] 04/18/2025 22:19:59
--- OUTSIDE RECORDS SUMMARY | 2025-06-01 13:57 | XMS_ITS | Clinical Summary ---
Author Organization [employer] ([place], [place], [place], [place]) Address [address] [place] [address] Care Team Providers Care Benefits Counselor Name Role Phone Chaparro Almanza MD Primary Care Provider [phone] Allergies No known active allergies Medications ALPRAZolam [...] the past 12 months, has t he [employer], gas, oil, or water [employer] threatened to shut off services in your [...] Do you speak a language other than [place] at [facility]? No 12/29/2023 Do you want help with [...] 12/29/2023 5:00 PM EDT Plan of Treatment Health Maintenance Due Date Last Done Comments Diabetic Eye Exam 1949 Depression Screening (12+) 1951 Tobacco Cessation Counseling and Screening (12+) 1951 DTAP/TDAP/TD VACCINES (1 - Tdap) 1958 Shingles Vaccine (Zoster) (1 of 2) 1989 Respiratory Syncytial Virus (RSV) Adult or (1 - 1-dose 75+ series) 2014 Pneumococcal 50+ years (2 of 2 - PPSV23, PCV20, or PCV21) 05/04/2017 03/09/2017 Hemoglobin A1C 12/29/2023 Falls Risk Screening 08/16/2024 Medicare Initial AWV [id number] 08/17/2024 COVID-19 VACCINE (5 - 2024-2 6 season) 2025 12/29/2021, 05/24/2021, 10/15/2020, Additional history exists Influenza Vaccine (#1) 2025 05/14/2023, 2015 Insurance [place] [id number] [facility] [place] Advance Directives For more information, please contact: [phone] * Full Code (Latest Code Status on File) Date Activated Date Inactivated Comments 12/29/2023 6:25 PM 01/02/2024 1:11 PM Care Teams Benefits Counselor Relationship Specialty Start Date End Date Chaparro Almanza MD [facility]ly [facility], [id number] [facility] [address] [place] [address] PCP - General General Internal Medicine 12/29/23
--- OUTSIDE RECORDS SUMMARY | 2025-06-01 13:57 | XMS_ITS | Data Portability ---
Author Organization [facility] DAL[facility] Waters MORO CLOSED Address [address] [facility] [place] [address] Care Team Providers Care Marking Clerk Name Role Phone BEKAH ALMANZA Primary Care Provider MAURILIO DAVILA Neurologist Assessment Encounter Date Assessment Date Assessment LastModified by Organization Details LastModified Time 12/20/2024 12/20/2024 1. Atrial fibrillation. Heart rate controlled. Continue metoprolol succinate 25 mg a day and Xarelto 20 mg daily 2. Severe osteoarthritis bilateral knees with significantly knee stiffness. Patient told that he should not be driving at all. I told him it was really unsafe given the stiffness in his knees and his advanced age and comorbid conditions. Continue on oxycodone/acetami nophen 7.5/325 mg 1 tab every 6 hours as needed for pain. Patient be given a prescription for Narcan to keep on hand as needed 3. Chronic kidney disease stage III. Check CMP today. Avoid nonsteroidals. Drink at least 40 ounces of water daily 4. Diabetic neuropathy. Check hemoglobin A1c today. Continue Tresiba 28 units subcu daily and metformin 1000 mg twice daily. Continue gabapentin 400 mg twice daily 5. History of thoracic aortic aneurysm. May need ultrasound of the aorta after next visit 6. Benign prostate hyperplasia with outflow obstruction. Continue tamsulosin 0.4 mg daily 7. RTC in 1 month for Medicare wellness visit [email or web address] Not available 12/24/2024 22:46:27 02/15/2025 02/15/2025 1. Dementia. Agree with memantine 5 mg twice daily per Dr. Maurilio Davila. 2. Severe osteoarthritis bilateral knees. Patient is not a surgical candidate. Continue oxycodone/acetami nophen 7.5/325 mg 1 tablet every 6 hours as needed for severe pain 3. Chronic kidney disease stage III. Avoid nonsteroidals and increase his water intake to at least 40 ounces daily. Check CMP today 4. Type 2 diabetes mellitus requiring insulin. Continue Tresiba 32 units subcu daily and to only hold it if his morning blood sugar is less than 100. Check hemoglobin A1c today and continue metformin 1000 mg twice daily 5. Systolic heart failure. Continue Lasix 20 mg daily and potassium 10 mEq daily with low-sodium diet 6. 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 Continue quetiapine 50 mg 1/2 tablet 3 times daily 7. Generalized anxiety disorder. Continue alprazolam 0.5 mg twice daily 8. Benign prostate hyperplasia with outflow obstruction. Continue tamsulosin 0.4 mg daily and finasteride 5 mg daily 9. Anemia. Continue ferrous sulfate 324 mg daily. Check CBC next visit 10. Chronic obstructive pulmonary disease. Currently stable without inhalers 11. History of DVT. Continue Xarelto 20 mg daily 12. Atrial fibrillation. Continue Xarelto 20 mg daily. Rate controlled. 13. RTC in 2 months [email or web address] Not available 02/18/2025 21:14:29 03/07/2025 03/07/2025 1. Localized edema. Increase Lasix to 20 mg daily. Elevate his legs when he is sitting or reclining. Stay on low-sodium diet. 2. Type 2 diabetes mellitus. A 1c was very good 3 weeks ago. Continue metformin at 1000 mg twice daily and Tresiba insulin 30 units daily with low-carb diet. 3. Atrial fibrillation. Continue Xarelto 20 mg daily 4. Generalized anxiety disorder. Continue alprazolam 0.5 mg twice daily 5. Severe osteoarthritis bilateral knees. Patient is not a surgical candidate. Continue oxycodone/acetami nophen 7.5/325 mg 1 tablet every 6 hours as needed 6. Dementia. Continue memantine 5 mg twice daily 7. Morbid obesity. Decrease his calorie intake especially carbohydrates 8. Systolic heart failure. Continue Lasix 20 mg daily with low-sodium diet. 9. History of orthostatic hypotension. Continue midodrine 10 mg 3 times daily. 10. RTC in 6-week [email or web address] Not available 03/08/2025 07:17:55 04/18/2025 04/18/2025 1. Pruritic erythematous rash. Exact [...] have high-dose flu shot at that time [id number] Not available 04/18/2025 22:19:34 Plan of Treatment Reminders Order Date Submit Date Provider Last Modified By Organization Details Last Modified Time Details Appointments RECHECK 2024 10:45A Santos ALMANZA MD Not available Not available Not available NEUROLOGY RECHECK 2024 10:30A Santos DAVILA DO Not available Not available Not available Lab lyme disease igg+igm, serum, reflex western blot 2024 025 [facility], [address] [place] [address], [id number], 04/20/2025 15:13:21 ESR (erythroc yte sedimenta tion rate), blood 2024 025 [facility], [address] [place] [address], [id number], 04/18/2025 20:12:08 CMP, serum or plasma 2024 025 [facility], [address] [place] [address], [address], 02/15/2025 19:18:27 glycohemo globin, total, blood 2024 025 [facility], [address] [place] [address], [address], 02/15/2025 19:31:34 CMP, serum or plasma 2024 025 [facility], [address] [place] [address], [address], 12/20/2024 20:05:16 glycohemo globin, total, blood 2024 025 [facility], [address] [place] [address], [address], 12/20/2024 19:56:20 Referral dermatolo gist referral - in 7-10 days 2024 025 [email or web address] Nicholas Thomas MD, [address] [place], [address], 05/30/2025 08:30:09 Procedures None recorded. Surgeries None recorded. Imaging MRI, brain, w/o contrast 2024 025 [facility] (Centralized Scheduling), [address] [place], [address], 02/28/2025 16:15:56 Medication Orders triamcino lone acetonide 0.1 % topical cream 2024 025 [facility], [address] [place], [address], 04/18/2025 12:13:02 memantine 5 mg tablet 2024 025 [facility], [address] [place], [address], 01/31/2025 15:04:24 Patient TargetsNo targets recorded. Patient InstructionsNo instructions recorded. Reason for Referral Experimental [employer]ic Referral for P ruritic rash in 7-10 days Referring Physician: Bekah Almanza, Internal Medicine, Encounter Date: 04/18/2025 Results Created Date Observation Date Name Description Value Unit Range Abnormal Flag Note LastModifiedBy Organization Detail LastModifiedTime 12/21/1912/20/2024 GLYCO HEMOG LOBIN A1C glyco HGB A1C 7.2 % 0.0-5. 6 high Not Available [facility] [address] [place] [address], [id number], 12/20/2024 19:56:19 12/21/19 25 12/20/2024 GLYCO HEMOG LOBIN A1C estimated avg. glucose 160 mg/dL _(blanca c) normal A1c value s betwe en 5.7% to 6.4% indic ate predi abete s. Resul ts 6.5% or great er is diagn ostic of diabe analia. Ameri can Diabe analia Assoc iatio n (diab etes. org) Not Available [facility] [address] [place] [address], [address], 12/20/2024 19:56:19 12/21/1912/20/2024 COMP. METAB OLIC PANEL glucose 158 mg/dL 74-100 high Not Available [facility] [address] [place] [address], [address], 12/20/2024 20:05:16 12/21/19 25 12/20/2024 COMP. METAB OLIC PANEL blood urea nitrogen 29 mg/dL 6-20 high Not Available [facility] [address] [place] [address], [address], 12/20/2024 20:05:16 12/21/19 25 12/20/2024 COMP. METAB OLIC PANEL creatinine 1.56 mg/dL 0.70-1 .20 high Not Available [facility] [address] [place] [address], [address], 12/20/2024 20:05:16 12/21/19 25 12/20/2024 COMP. METAB OLIC PANEL BUN/creatini ne ratio 19 (calc ) 10-20 normal Not Available [facility] [address] [place] [address], [address], 12/20/2024 20:05:16 12/21/19 25 12/20/2024 COMP. METAB OLIC PANEL sodium 141 mmol/ L 136-14 5 normal Not Available [facility] [address] [place] [address], [address], 12/20/2024 20:05:16 12/21/19 25 12/20/2024 COMP. METAB OLIC PANEL potassium 4.1 mmol/ L 3.4-5. 0 normal Not Available [facility] [address] [place] [address], [address], 12/20/2024 20:05:16 12/21/19 25 12/20/2024 COMP. METAB OLIC PANEL chloride 99 mmol/ L 98-107 normal Not Available [facility] [address] [place] [address], [address], 12/20/2024 20:05:16 12/21/19 25 12/20/2024 COMP. METAB OLIC PANEL carbon dioxide 24 mmol/ L 22-31 normal Not Available [facility] [address] [place] [address], [address], 12/20/2024 20:05:16 12/21/19 25 12/20/2024 COMP. METAB OLIC PANEL anion gap 18 (calc ) 7-25 normal Not Available [facility] [address] [place] [address], [address], 12/20/2024 20:05:16 12/21/19 25 12/20/2024 COMP. METAB OLIC PANEL calcium 9.4 mg/dL 8.6-10 .2 normal Not Available [facility] [address] [place] [address], [address], 12/20/2024 20:05:16 12/21/19 25 12/20/2024 COMP. METAB OLIC PANEL total protein 7.2 g/dL 6.4-8. 3 normal Not Available [facility] [address] [place] [address], [address], 12/20/2024 20:05:16 12/21/19 25 12/20/2024 COMP. METAB OLIC PANEL albumin 4.3 g/dL 3.5-5. 2 normal Not Available [facility] [address] [place] [address], [address], 12/20/2024 20:05:16 12/21/19 25 12/20/2024 COMP. METAB OLIC PANEL globulin 2.9 1.5-4. 5 normal Not Available [facility] [address] [place] [address], [address], 12/20/2024 20:05:16 12/21/19 25 12/20/2024 COMP. METAB OLIC PANEL albumin/glob ulin ratio 1.5 (calc ) 1.1-2. 5 normal Not Available [facility] [address] [place] [address], [address], 12/20/2024 20:05:16 12/21/19 25 12/20/2024 COMP. METAB OLIC PANEL bilirubin, total 0.8 mg/dL 0.1-1. 2 normal Not Available [facility] [address] [place] [address], [address], 12/20/2024 20:05:16 12/21/19 25 12/20/2024 COMP. METAB OLIC PANEL alkaline phosphatase 59 U/L 40-129 normal Not Available [facility] [address] [place] [address], [address], 12/20/2024 20:05:16 12/21/19 25 12/20/2024 COMP. METAB OLIC PANEL AST 16 U/L 0-40 normal Not Available [facility] [address] [place] [address], [address], 12/20/2024 20:05:16 12/21/19 25 12/20/2024 COMP. METAB OLIC PANEL ALT 12 U/L 0-41 normal Not Available [facility] [address] [place] [address], [address], 12/20/2024 20:05:16 12/21/19 25 12/20/2024 COMP. METAB OLIC PANEL GFR 43 >= 60 abnormal NOT E New calcu latio n for GFR (CKD- EPI 2020) is formu lated witho ut race adjus tment facto rs at the recom menda tion of the John [employer] em and [employer] Gray ty of Nephr ology . This calcu latio n has not been valid ated in pregn ant women . For pedia tric patie nts refer to https :[email or web address] carter.zach rg/pr monica goodson s/KDO QI/gf r_cal culat orPed Not Available [facility] [address] [place] [address], [address], 12/20/2024 20:05:16 02/16/20 25 02/15/2025 COMP. METAB OLIC PANEL glucose 128 mg/dL 74-100 high Not Available [facility] [address] [place] [address], [address], 02/15/2025 19:18:27 02/16/20 25 02/15/2025 COMP. METAB OLIC PANEL blood urea nitrogen 21 mg/dL 6-20 high Not Available [facility] [address] [place] [address], [address], 02/15/2025 19:18:27 02/16/20 25 02/15/2025 COMP. METAB OLIC PANEL creatinine 1.16 mg/dL 0.70-1 .20 normal Not Available [facility] [address] [place] [address], [address], 02/15/2025 19:18:27 02/16/20 25 02/15/2025 COMP. METAB OLIC PANEL BUN/creatini ne ratio 18 (calc ) 10-20 normal Not Available [facility] [address] [place] [address], [address], 02/15/2025 19:18:27 02/16/20 25 02/15/2025 COMP. METAB OLIC PANEL sodium 139 mmol/ L 136-14 5 normal Not Available [facility] [address] [place] [address], [address], 02/15/2025 19:18:27 02/16/20 25 02/15/2025 COMP. METAB OLIC PANEL potassium 4.4 mmol/ L 3.4-5. 0 normal Not Available [facility] [address] [place] [address], [address], 02/15/2025 19:18:27 02/16/20 25 02/15/2025 COMP. METAB OLIC PANEL chloride 99 mmol/ L 98-107 normal Not Available [facility] [address] [place] [address], [address], 02/15/2025 19:18:27 02/16/20 25 02/15/2025 COMP. METAB OLIC PANEL carbon dioxide 24 mmol/ L 22-31 normal Not Available [facility] [address] [place] [address], [address], 02/15/2025 19:18:27 02/16/20 25 02/15/2025 COMP. METAB OLIC PANEL anion gap 16 (calc ) 7-25 normal Not Available [facility] [address] [place] [address], [address], 02/15/2025 19:18:27 02/16/20 25 02/15/2025 COMP. METAB OLIC PANEL calcium 9.6 mg/dL 8.6-10 .2 normal Not Available [facility] [address] [place] [address], [address], 02/15/2025 19:18:27 02/16/20 25 02/15/2025 COMP. METAB OLIC PANEL total protein 6.9 g/dL 6.4-8. 3 normal Not Available [facility] [address] [place] [address], [address], 02/15/2025 19:18:27 02/16/20 25 02/15/2025 COMP. METAB OLIC PANEL albumin 4.2 g/dL 3.5-5. 2 normal Not Available [facility] [address] [place] [address], [address], 02/15/2025 19:18:27 02/16/20 25 02/15/2025 COMP. METAB OLIC PANEL globulin 2.7 1.5-4. 5 normal Not Available [facility] [address] [place] [address], [address], 02/15/2025 19:18:27 02/16/20 25 02/15/2025 COMP. METAB OLIC PANEL albumin/glob ulin ratio 1.6 (calc ) 1.1-2. 5 normal Not Available [facility] [address] [place] [address], [address], 02/15/2025 19:18:27 02/16/20 25 02/15/2025 COMP. METAB OLIC PANEL bilirubin, total 0.6 mg/dL 0.1-1. 2 normal Not Available [facility] [address] [place] [address], [address], 02/15/2025 19:18:27 02/16/20 25 02/15/2025 COMP. METAB OLIC PANEL alkaline phosphatase 56 U/L 40-129 normal Not Available [facility] [address] [place] [address], [address], 02/15/2025 19:18:27 02/16/20 25 02/15/2025 COMP. METAB OLIC PANEL AST 14 U/L 0-40 normal Not Available [facility] [address] [place] [address], [address], 02/15/2025 19:18:27 02/16/20 25 02/15/2025 COMP. METAB OLIC PANEL ALT 12 U/L 0-41 normal Not Available [facility] [address] [place], [address], 02/15/2025 19:18:27 02/16/20 25 02/15/2025 COMP. METAB OLIC PANEL eGFR 61 >= 60 normal NOT E New calcu latio n for GFR (CKD- EPI 2020) is formu lated witho ut race adjus tment facto rs at the recom menda tion of the [employer] Am[employer] em and [employer] ty of Nephr ology . This calcu latio n has not been valid ated in pregn ant women . For pedia tric patie nts refer to https ://kailash carter.zach rg/pr monica goodson s/KDO QI/gf r_cal culat orPed Not Available [facility] [address] [place], [address], 02/15/2025 19:18:27 02/16/2002/15/2025 GLYCO HEMOG LOBIN A1C glyco HGB A1C 6.4 % 0.0-5. 6 high Not Available [facility] [address] [place], [address], 02/15/2025 19:31:34 02/16/2002/15/2025 GLYCO HEMOG LOBIN A1C estimated avg. glucose 137 mg/dL _(blanca c) normal A1c value s betwe en 5.7% to 6.4% indic ate predi abete s. Resul ts 6.5% or great er is diagn ostic of diabe analia. Ameri can Diabe analia Assoc iatio n (diab etes. org) Not Available [facility] [address] [place], [address], 02/15/2025 19:31:34 04/18/20 25 04/18/2025 ESR, AUTOM ATED ESR, automated 1 mm 0-19 normal Not Available [facility] [address] [place], [address], 04/18/2025 20:12:08 04/18/20 25 04/20/2025 LYME AB [...] migra ns is appar ent. Not Available [facility] [address] [place], [address], 04/20/2025 15:13:21 11/25/19 25 11/24/2024 US, echoc ardio gram, trans thora cic, compl ete, w/ color flow No observ ation [facility] ed. [facility] [address], [place], [address], 12/01/2024 14:19:56 02/29/20 25 2025 MRI, brain , w/o contr ast No observ ation record ed. [email or web address] [facility] [address] [facility], [place], [address], 02/28/2025 17:34:03 Result Notes None recorded. Problems Name Problem SNOMED Code Status Onset Date Resolution Date Notes Provider Name and Address Organization Details Recorded Time Chronic ki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 2 diabetes mellitus 588548879588 Active Not Available [facility] 4 06:45:56 Neuropathy due to type 2 diabetes mellitus 4243797515963 06 Active Not Available [facility] 4 06:46:25 Hypercoagu lability state 31535582 Active Not Available [facility] 4 06:46:31 Uncontroll ed type 2 diabetes mellitus 500457600 Active Not Available [facility] 4 06:33:25 Severe recurrent major depression without psychotic features 89102938 Active Not Available [facility] 5 21:04:25 Benign prostatic hyperplasi a with outflow obstructio n 467395431 Active 2022 BEKAH ALMANZA MD [address] [place] [address], [address] , [facility] 3 15:01:56 Bilateral osteoarthr itis of knees 3605880328719 07 Active 2022 BEKAH ALMANZA MD [address] [place] [address], [address] , [facility] 3 15:01:59 Chronic atrial fibrillati on 483253922 Active 2022 BEKAH ALMANZA MD [address] [place] [address], [address] , [facility] 3 15:02:00 Chronic kidney disease stage 3 293575600 Active 2022 BEKAH ALMANZA MD [address] [place] [address], [address] , [facility] 3 15:02:04 Chronic obstructiv e pulmonary disease 57426973 Active 2022 BEKAH ALMANZA MD [address] [place] [address], [address] , [facility] 3 15:02:06 Chronic systolic heart failure 568859076 Active 2022 BEKAH ALMANZA MD [address] [place] [address], [address] , [facility] 3 15:02:07 Generalize d anxiety disorder 28472377 Active 2022 BEKAH ALMANZA MD [address] [place] [address], [address] , [facility] 3 15:02:09 Obesity 859355047 Active 2022 BEKAH ALMANZA MD [address] [place] [address], [address] , [facility] 3 15:02:11 Moderate dementia 9762877626517 00 Active 2022 BEKAH ALMANZA MD [address] [place] [address], [address] , [facility] 3 15:02:13 Peripheral neuropathy due to type 2 diabetes mellitus 6231534586102 Active 2022 BEKAH ALMANZA MD [address] [place] [address], [address] , [facility] 3 15:02:15 Renal disorder due to type 2 diabetes mellitus 282793583 Active 2022 BEKAH ALMANZA MD [address] [place] [address], [address] , [facility] 3 15:02:18 Aneurysm of thoracic aorta 307669738 Active 2022 BEKAH ALMANZA MD [address] [place] [address], [address] , [facility] 3 15:02:20 Vitamin B12 deficiency (non anemic) 79895928 Active 2022 BEKAH ALMANZA MD [address] [place] [address], [address] , [facility] 3 15:02:22 History of deep vein thrombosis 017655127 Active 2022 BEKAH ALMANZA MD [address] [place] [address], [address] , [facility] 3 18:35:02 Anemia 189811784 Active 2022 BEKAH ALMANZA MD [address] [place] [address], [address] , [facility] 3 18:35:11 Type 2 diabetes mellitus 29236064 Active 2022 BEKAH ALMANZA MD [address] [place] [address] [place], [address] , [facility] 3 15:05:34 Pain of bilateral knee joints 0744072195212 04 Active 2022 BEKAH ALMANZA MD [address] [place] [address], [address] , [facility] 3 15:05:46 Ophthalmic examinatio n and evaluation Active 2022 BEKAH ALMANZA MD [address] [place] [address], [address] , [facility] 3 15:06:26 Dementia 02829205 Active 2023 BEKAH ALMANZA MD [address] [place] [address], [address] , [facility] 4 06:56:51 Nausea and vomiting 84154390 Active 2023 BEKAH ALMANZA MD [address] [place] [address], [address] , [facility] 4 21:27:40 Administra tion of viral vaccine Active 2023 BEKAH ALMANZA MD [address] [place] [address], [address] , [facility] 4 06:43:44 Hyperglyce isabela due to type 2 diabetes mellitus 5892252760700 09 Active 2023 BEKAH ALMANZA MD [address] [place] [address], [address] , [facility] 4 13:25:23 Atrial fibrillati on 94884704 Active 2023 BEKAH ALMANZA MD [address] [place] [address], [address] , [facility] 4 13:26:04 Recurrent urinary tract infection 428840076 Active 2023 BEKAH ALMANZA MD [address] [place] [address], [address] , [facility] 4 13:26:26 Onychomyco sis 585393715 Active 2023 BEKAH ALMANZA MD [address] [place] [address], [address] , [facility] 4 13:26:27 Mood swings 79036662 Active 2023 BEKAH ALMANZA MD [address] [place] [address] , [facility] 4 13:26:29 Administra tion of influenza vaccine Active 2023 BEKAH ALMANZA MD [address] [place] [address] , [facility] 4 23:29:03 Pain of left shoulder joint 0445236290055 9109 Active 2024 BEKAH ALMANZA MD [address] [place], [place] [address] , [facility] 5 06:55:13 Disorder of nervous system due to type 2 diabetes mellitus 562134238 Active 2024 BEKAH ALMANZA MD [address] [place], [place] [address] , [facility] 5 06:55:19 Senile dementia 56541842 Active 2024 MAURILIO DAVILA, DO [address] [place] [address] [place] [address] 5 14:59:33 Pruritic rash 15106578 Active 2024 BEKAH ALMANZA MD [address] [place] [address] [place] [address] 5 22:19:34 Problem Notes Documentation Provider Name and Address Organization Details Recorded Time Neurologist Consult Note : [facility] [address] [id number] BAXTER (id #[id number], : 1940) [facility] [address] [place] [address] Encounter Summary - Progress Note Date Printed: 01/31/2025 Documents sent via fax will include the followingmessage: This fax may contain sensitive and confidential personal health information that is being sent for the sole use of the intended recipient. Unintended recipients are directed to securely destroy any materials received. You are hereby notified that the unauthorized disclosure or other unlawful use of this fax or any personal health information is prohibited. To the extent patient information contained in this fax is subject to 42 CFR Part 2, this regulation prohibits unauthorized disclosure of these records. If you received this fax in error, please visit [email or web address] to notify the sender and confirm that the information will be destroyed. If you do not have internet access, please call to notify the sender and confirm that the information will be destroyed. Thank you for your attention and cooperation. [ID:[id number]] Patient Boubacar Baxter (84yo, M) #[id number] 1940 Patient Demographics: Address [address] [place] [id number] Encounter Notes: Encounter Reason/DateTransition of Care Encounter memory problem 01/31/2025 - 01:45PM - NEUROLOGY [address] History of Present [id number] y/o right handed male here for neurologic consultation requested by Dr Almanza regarding dementia. His accompanies him and provides the history. Boubacar was diagnosed with dementia about two years ago. His describes a progressive decline in short term memory. He will repeat himself and not recall something they talked about maybe 30 minutes prior. He has been prone to lose things around the house.He has has also had significant issues with agitation, verbal outbursts and sometimes some aggressive physical behaviors. He is currently not on any memory enhancing medications. He is followed by palliative care. They weaned off donepezil last March due to concerns this was causing agitation. They prescribe him escitalopram and quetiapine for moods. He also had xanax for anxiety.He is on gabapentin for diabetic neuropathy pain. He is prescribed oxycodone for DJD pain.He has Afib and in on Xarelto. His does not feel that once off the donepezil that his moods got any better. In fact his cognitive symptoms has gotten much worse. He is very confused thinking his siblings are alive. He really struggles to find words when he is trying to talk. He seems very anxious and paranoid. He can't follow instructions or keep track of time.He still does fairly well at dressing and bathing himself but does need prompts.He has not been violent but still uses bad language which is not normal for him. She does feel the quetiapine has helped with the violent behaviors. They do not believe he has ever had any brain imaging.He had labs done in December. His Cr was 1.56 which is up from prior labs. A1C was 7.2 which is also trending up. He has low platelets at 144 which is somewhat stable compared to prior labs. Review of Systems Caregiver reportsweight gain (___lbs)but reports no fever. (S)he reportsdifficulty hearing. (S)he reportssnoringbut reports no sore throat. (S)he reportschest pain and palpitationsbut reports no shortness of breath when walking. (S)he reportscough, wheezing, and shortness of breath. (S)he reportschange in appetite, nausea, vomiting, and GERDbut reports normal appetite. (S)he reportsurinary incontinence, difficulty urinating, incomplete emptying, and urinary urgencybut reports no increased frequency and no dysuria. (S)he reportsmuscle aches, muscle weakness, arthralgias/joint pain, and swelling in the extremitiesbut reports no back pain. (S)he reportsweakness, numbness, dizziness, migraines, restless legs, and tremor. (S)he reportsfatigue, increased thirst, and cold intolerance. (S)he reports no vision change. (S)he reports no sinus problems. (S)he reports no depression, no sleep disturbances, and no anxiety. (S)he reports no bruising and no excessive bleeding. Vitals Ht: 5 ft 10 in01/31/2025 02:23 pm Wt: Not Performed - Not rbtayspls40/18/2025 02:23 pm BP: 114/70 sitting L arm01/31/2025 02:30 pm Pulse: 84 bpm01/31/2025 02:31 pm O2Sat: 94% Room Air at Rest01/31/2025 02:31 pm Results/InterpretationsNone recorded Physical ExamNEUROLOGY EXAM General Appearance:obeseAppears stated ageAppears in no distress Cardiovascular:Heart sounds are RRRNo murmur is auscultatedNo carotid bruits are auscultatedNo peripheral edema is appreciated Lungs:Clear to auscultation bilaterally Skin:No excessive bruisingNo rashes Mental Status:AlertOriented to person. He is confused to time and recent events. His has to correct many of his answers today.Attention is fair.Affect is normal, he pleasant and cooperative todaySpeech is clear, no aphasic or receptive errors Cranial Nerves:CN II: visual dela cruz are intact to confrontational testing in all four quadrants. Funduscopic exam within normal limitsCN III, IV, : PERRL, EOM are conjugate, No nystagmus present, Gaze is normalCN VII: facial symmetry is present at rest, symmetric upper and lower facial strength is demonstratedCN VII: hearing is intact to conversational tonesCN IX, X: palate elevates symmetrically, uvula is midlineCN XI: shoulder shrug with preserved strength and symmetric, SCM strength intact bilaterallyCN XII: tongue protrusion is midline, tongue is of normal bulk and motility Motor:RUE proximal 5/5, distal 5/5LUE proximal 5/5, distal 5/5RLE proximal 5/5, distal 5/5LLE proximal 5/5, distal 5/5Normal tone in the upper and lower extremitiesNo significant muscle wastingAbsence of tics, myoclonus, chorea, and fasciculationsAbsence of resting and action tremors in the extremities and head Sensation:Tactile sensation is intact in the bilateral upper and lower extremities Reflexes:2/4 R Biceps, 2/4 L Biceps2/4 R Triceps, 2/4 L Triceps2/4 R Brachioradialis, 2/4 L Brachioradialis2/4 R Patellar, 2/4 L PatellarAbsence of Jimenez's reflex bilaterallyAbsence of clonus Coordination:Finger to nose is normal in the RUE and LUEHeel knee to bird is normal in the RLE and LLE Gait:Wheelchair. He has his walker with him today. He walks short distance with walker. Slow gait, mildly antalgic. Referral notes and records were reviewed personally as part of today's visit. Procedure DocumentationNone recorded Assessment and Plan1.Moderate late onset Alzheimer's dementia with agitationSignificant cognitive impairments consistent with a dementia process. He has multiple siblings with AD that have .Will order MRI brain as he has not had any prior brain imaging.I would recommend a trial of memantine. They are educated on the purpose of this medication which is to try to slow down progression. It will not improve memory. His is educated on potential side effects and she will let me know if he has any concerns once he tries the medication.He should avoid donepezil due to his A fib.He has 24hour supervision.He does not driveHe has behavioral disturbances but no physically violent behaviors with current dose of seroquel.G30.1: Alzheimer's disease with late onset F02.B11: Dementia in other diseases classified elsewhere, moderate, with agitation memantine 5 mg tablet - Take 1 tablet(s) twice a day by oral route for 30 days. Qty: (60) tablet Refills: 2 Pharmacy: [facility] 591 MRI, BRAIN, W/O CONTRAST Height (ft.): [address] of [facility] Procedure code: 14106 Return to Office to see MAURILIO DAVILA DO for NEUROLOGY RECHECK at NEUROLOGY 1207 on or around 05/03/2025 MAURILIO DAVILA DO for NEUROLOGY RECHECK at NEUROLOGY 1207 SB on 05/08/2025 at 02:30 PM Patient Medical History: Allergies List Reviewed Allergies NKDA Medications Reviewed Medications NameDate Source ALPRAZolam 0.5 mg tabletTAKE 1 TABLET BY MOUTH TWICE DAILY NEEDED FOR WQLKYFC26/10/25 filled surescripts BD Ultra-Fine Short Pen Needle 31 gauge x 5/16 USE 1 ONCE DAILY09/01/24 filled surescripts esomeprazole magnesium 40 mg capsule,delayed releaseTAKE 1 CAPSULE BY MOUTH ONCE DAILY12/06/24 filled surescripts finasteride 5 mg tabletTAKE 1 TABLET BY MOUTH ONCE DAILY12/13/24 filled surescripts furosemide 20 mg tabletTAKE 1 TABLET BY MOUTH ONCE DAILY IN THE IUAUCCL81/03/25 filled surescripts gabapentin 400 mg capsuleTAKE 1 CAPSULE BY MOUTH TWICE DAILY01/23/25 filled surescripts memantine 5 mg tabletTake 1 tablet(s) twice a day by oral route for 30 days.01/31/25 prescribed MAURILIO DAVILA DO metFORMIN 1,000 mg tabletTAKE 1 TABLET BY MOUTH TWICE DAILY12/21/24 filled surescripts midodrine 5 mg tabletTAKE 2 TABLETS BY MOUTH THREE TIMES DAILY12/06/24 filled surescripts Narcan 4 mg/actuation nasal sprayTake 4 mg as needed by nasal route for 1 day.12/21/24 prescribed BEKAH ALMANZA MD OneTouch Delica Plus Lancet 33 gaugeUSE 1 LANCET TO CHECK GLUCOSE ONCE DAILY05/09/24 filled surescripts OneTouch Ultra Test stripsUSE 1 STRIP TO CHECK GLUCOSE ONCE DAILY07/15/24 filled surescripts OneTouch Ultra2 Meter01/26/24 filled surescripts oxyCODONE-acetaminophen 7.5 mg-325 mg tabletTAKE 1 TABLET BY MOUTH EVERY 6 HOURS NEEDED FOR SEVERE PAIN01/23/25 filled surescripts potassium chloride ER 10 mEq capsule,extended releaseTAKE 1 CAPSULE BY MOUTH ONCE DAILY IN THE AIOFAOE19/03/25 filled surescripts promethazine 25 mg tabletTake 0.5 tablet(s) every 6 hours by oral route as needed, for nausea.11/28/24 prescribed BEKAH ALMANZA MD QUEtiapine 50 mg tabletTAKE ONE-HALF TABLET BY MOUTH UP TO THREE TIMES DAILY10/22/24 filled surescripts tamsulosin 0.4 mg capsuleTAKE 1 CAPSULE BY MOUTH ONCE DAILY11/14/24 filled surescripts Tresiba FlexTouch U-100 insulin 100 unit/mL (3 mL) subcutaneous penINJECT 28 UNITS SUBCUTANEOUSLY ONCE DAILY01/06/25 filled surescripts Xarelto 20 mg tabletTAKE 1 TABLET BY MOUTH ONCE DAILY01/06/25 filled surescripts Family HistoryReviewed Family History Sister - Alzheimer's disease - Dementia - Diabetes mellitus Brother - Family history of malignant neoplasm Father - Family history of malignant neoplasm Mother - Family history of malignant neoplasm Past Medical HistoryReviewed Past Medical History Alzheimer's:Y Anxiety Disorder:Y Arthritis:Y Diabetes:Y Heart Disease:Y-Afib Neurological Problems:Y-Dementia, Diabetic peripheral neuropathy Notes: Anemia, Thoracic Aortic aneursym, BPH, COPD, CKD Vaccine HistoryReviewed Vaccines Vaccine Type Date Amt. Route Site [facility] [place][NOTE 2] Lot # [id number]. Exp. Date VIS VIS Given [employer] COVID-19 COVID-19, mRNA, LNP-S, PF, 30 mcg/0.3 mL dose, alma-sucrose ([employer]) 12/29/21 0.3 mL Intramuscular [id number] Otonomy 01/30/22 COVID-19, mRNA, LNP-S, PF, 30 mcg/0.3 mL dose ([employer]) 05/24/21 0.3 mL Intramuscular [id number] Otonomy 07/15/21 COVID-19, mRNA, LNP-S, PF, 30 mcg/0.3 mL dose ([employer]) 10/15/20 0.3 mL Intramuscular [id number] Otonomy 02/12/21 COVID-19, mRNA, LNP-S, PF, 30 mcg/0.3 mL dose ([employer]) 09/20/20 0.3 mL Intramuscular [id number] Otonomy 01/12/21 Influenza influenza, high dose seasonal 10/02/24 0.5 mL Intramuscular [id number] [employer] 02/12/25 influenza, high dose seasonal 06/08/24 0.5 mL Intramuscular Deltoid, Right [id number] [employer] 02/12/25 Inactivated Influenza 03/21/2021 06/08/24 Luz Ortega influenza, high-dose, quadrivalent 05/14/23 0.7 mL Intramuscular Deltoid, Left [id number] [employer] 02/13/24 Inactivated Influenza 03/21/2021 05/14/23 Radha Perez influenza, high dose seasonal 05/13/16 0.5 mL Intramuscular [id number] [employer] 12/21/16 Pneumococcal pneumococcal conjugate PCV 13 03/09/17 0.5 mL Intramuscular [id number] Otonomy 12/13/17 Zoster zoster recombinant 01/19/24 0.5 mL Intramuscular Deltoid, Right [id number] [employer] 01/27/26 Recombinant Zoster 09/19/2021 01/19/24 Luz Ortega Electronically Signed by: MAURILIO DAVILA, BEKAH ALMANZA MD [address] [place] [address], [phone], [facility] 02/01/2025 22:44:02 Procedures Surgical History Date Name Laterality Status Provider Name and Address Organization Details Recorded Time 04/13/20 24 Social Determinants of Health completed DONAVON PEDROZA MD [address] [place] [address], [phone], [facility] 04/13/2024 15:40:11 04/04/20 24 TCM completed Rosio Reilly [facility] 03/31/2024 10:46:40 11/15/19 24 operation on bone injury of femur completed Jennie Tobar [facility] 01/31/2025 14:38:06 08/16/19 21 operation on lung completed Jennie Tobar [facility] 01/31/2025 14:37:15 operation on hip joint completed Aishwarya Rodriguez [facility] 12/17/2023 14:16:02 Imaging Results None recorded. Procedure [...] active Not Available Not Available Not Avai labjeanne esomepraz ole magnesium 40 mg capsule,d elayed [...] blood by Pulse oximetry Heart rate Systolic And Diastolic Provider Name and Address Organization Details Last Updated DateTime 5 177.8 cm 31.9 kg/m2 780922. 51 g 99 % 99 % 84 /min 136/72 mm[Hg] [facility] 10:[facility]:00 Date Recorded Body height Heart rate Oxygen saturation Oxygen saturation in Arterial blood by Pulse oximetry Systolic And Diastolic Provider Name and Address Organization Details Last Updated DateTime 5 177.8 cm 84 /min 94 % 94 % 114/70 mm[Hg] Jennie Poncealmita [facility] 5 14:30:56 Date Recorded Body height Body mass index (BMI) Body weight Oxygen saturation Oxygen saturation in Arterial blood by Pulse oximetry Heart rate Systolic And Diastolic Provider Name and Address Organization Details Last Updated DateTime 5 177.8 cm 32.7 kg/m2 295440. 06 g 96 % 96 % 82 /min 120/78 mm[Hg] [facility] 10:27:14 Date Recorded Body height Body mass index (BMI) Body weight Oxygen saturation Oxygen saturation in Arterial blood by Pulse oximetry Heart rate Systolic And Diastolic Provider Name and Address Organization Details Last Updated DateTime 5 177.8 cm 32.7 kg/m2 743923. 06 g 96 % 96 % 84 /min 128/80 mm[Hg] [facility] 5 11:13:34 Date Recorded Body height Oxygen saturation Oxygen saturation in Arterial blood by Pulse oximetry Heart rate Body mass index (BMI) Body weight Systolic And Diastolic Provider Name and Address Organization Details Last Updated DateTime 5 177.8 cm 97 % 97 % 90 /min 33 kg/m2 392657. 25 g 132/76 mm[Hg] [facility] 11:08:20 Social History Question Answer Notes LastModified by Organizat ion Details LastModified Time Tobacco Smoking Status [facility] 15:42:37 What Is The Highest Grade Or Level Of School You Have Completed Or The Highest Degree You Have Received? [id number] Information not available 01/31/2025 When Did You Quit Smoking? 6-10yearssin celastcigare tte Information not available 01/19/2024 What Was The Date Of Your Most Recent Tobacco Screening? 06/07/2024 Information not available 06/07/2024 What Is Your Relationship Status? Information not available 01/31/2025 Has Tobacco Cessation Counseling Been Provided? No Information not available 05/14/2023 Sex: Unknown Functional Status Question Answer Note LastModified by ecobeeizat ion Details LastModified Time Do you use any [...] available 2024 14:34:44 Medical History Condition Response Diabetes Y Anxiety Disorder Y Arthritis Y Parkinson's Disease N Tuberculosis N Alzheimer's Y Cancer N Migraines N Stroke N Depression N Glaucoma N High Cholesterol N Heart Disease Y Hypertension N Neurological Problems Y Immunizations Vaccine Type Date Status Note Provider Nam e and Address Organization Details Recorded Time COVID-19, mRNA, LNP-S, PF, 30 mcg/0.3 mL dose completed TEZ Vallejo [facility] 12/17/2023 14:03:42 COVID-19, mRNA, LNP-S, PF, 30 mcg/0.3 mL dose 1 completed [facility] 14:03:42 COVID-19, mRNA, LNP-S, PF, 30 mcg/0.3 mL dose 1 completed Jasmin Ray [facility] 12/17/2023 14:03:42 COVID-19, mRNA, LNP-S, PF, 30 mcg/0.3 mL dose, alma-sucrose 2 completed Jasmin Ray [facility] 12/17/2023 14:03:42 Pneumococcal conjugate PCV 13 7 completed Jasmin Ray [facility] 12/17/2023 14:03:42 Influenza, high-dose, trivalent, PF 6 completed Jasmin Ray [facility] 12/17/2023 14:03:42 Influenza, high-dose, trivalent, PF 5 completed Cookie Mari [facility] 01/12/2025 14:14:39 Influenza, high-dose, quadrivalent, PF 3 completed BEKAH ALMANZA MD [address] [place] [address], [phone], [facility] 05/16/2023 21:27:46 zoster recombinant 4 completed BEKAH ALMANZA MD [address] [place] [address], [phone], [facility] 01/20/2024 06:33:46 Influenza, high-dose, trivalent, PF 4 completed Luz Ortega [facility] 06/08/2024 11:58:43 Past Encounters Encounter ID Performer Location Encounter Start Date Encounter Closed Date Diagnosis/Indication Diagnosis SNOMED-CT Code Diagnosis ICD10 Code Diagnosis IMO Codes Diagnosis Note [id number] QM_IMPORTS [place] [address] 11/16/2016 14:59:38 11/16/2016 14:59:38 [id number] BEKAH ALMANZA MD [facility] [address] [place] [address] 05/14/2023 14:29:20 05/14/2023 15:15:33 Benign prostatic hyperplasia with outflow obstruction 880231330 N40.1 Bilateral osteoarthritis of knees 1362674382 48581 M17.0 Chronic at rial fibrillation 225583402 I48.20 Chronic ki dney disease stage 3 275250749 N18.30 Chronic ob structive pulmonary disease 80336136 J44.9 Chronic sy stolic heart failure 132614639 I50.22 Generalize d anxiety disorder 21896678 F41.1 Obesity 884672910 E66.9 Moderate dementia 062905 8551 05224 F03.B0 Peripheral neuropathy due to type 2 diabetes mellitus 6269670478 107 E11.42 Renal diso rder due to type 2 diabetes mellitus 045183413 E11.21 Aneurysm o f thoracic aorta 850142393 I71.20 Vitamin B1 2 deficiency (non anemic) 76820674 E53.8 Administra tion of influenza vaccine 94831103 Z23 [id number] BEKAH ALMANZA MD [facility] [address] [place] [address] 07/27/2023 11:00:31 07/27/2023 11:46:55 Amnesia 91998001 R41.3 Benign pro static hyperplasia with outflow obstruction 819854021 N40.1 Bilateral osteoarthritis of knees 8816075083 81588 M17.0 Atrial fibrillation 4943 6004 I48.91 Chronic ki dney disease stage 3 165686521 N18.30 Chronic ob structive pulmonary disease 16466584 J44.9 History of deep vein thrombosis 177448680 Z86.718 Peripheral neuropathy due to type 2 diabetes mellitus 6839267438 107 E11.42 Obesity 937312422 E66.9 Vitamin B1 2 deficiency (non anemic) 82327859 E53.8 Chronic sy stolic heart failure 815574006 I50.22 Pain of le ft knee joint 9226459973 79988 M25.562 Anemia 287467787 D64.9 [id number] BEKAH ALMANZA MD [facility] [place] [id number] [facility] [place] [address] 08/13/2023 14:28:45 08/13/2023 15:21:05 Anemia 912629578 D64.9 Vitamin B1 2 deficiency (non anemic) 51834912 E53.8 Type 2 prashant betes mellitus 12469191 E11.9 Chronic ob structive pulmonary disease 16488313 J44.9 Generalize d anxiety disorder 36500722 F41.1 Amnesia 45024981 R41.3 History of deep vein thrombosis 035562521 Z86.718 Chronic ki dney disease stage 3 716559752 N18.30 Chronic at rial fibrillation 660563839 I48.20 Benign pro static hyperplasia with outflow obstruction 007518345 N40.1 Pain of bi lateral knee joints 8954881292 69416 M25.561 Chronic sy stolic heart failure 418359987 I50.22 Adult heal th examination 862280359 Z00.00 Ophthalmic examination and evaluation 70649035 Z01.00 [id number] BEKAH ALMANZA MD [facility] [address] [place] [address] 10/15/2023 13:45:17 10/15/2023 14:20:12 Bilateral osteoarthritis of knees 9295696517 52533 M17.0 Generalize d anxiety disorder 45429152 F41.1 Type 2 prashant betes mellitus 53301096 E11.9 Chronic ob structive pulmonary disease 44313242 J44.9 Chronic ki dney disease stage 3 202915970 N18.30 Benign pro static hyperplasia with outflow obstruction 965289720 N40.1 Vitamin B1 2 deficiency (non anemic) 44097735 E53.8 Chronic sy stolic heart failure 121986636 I50.22 History of deep vein thrombosis 466381318 Z86.718 Chronic at rial fibrillation 906642640 I48.20 Chronic 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 4619161953 08 E11.22 Neuropathy due to type 2 diabetes mellitus 3540310388 06412 E11.40 Hypercoagu lability state 64310516 D68.69 Dementia 20974803 F03.90 [id number] BEKAH ALMANZA MD [facility] [place] [address] [place] [address] 12/17/2023 14:10:15 12/17/2023 14:44:23 Nausea and vomiting 34068124 R11.2 Bilateral osteoarthritis of knees 6401762216 99323 M17.0 Generalize d anxiety disorder 84990279 F41.1 Morbid obesity 654320892 E66.01 Renal diso rder due to type 2 diabetes mellitus 894918603 E11.21 Chronic ki dney disease stage 3 426197345 N18.30 Vascular d ementia without behavioral disturbance 8977436572 6289055 F01.50 Chronic sy stolic heart failure 658168387 I50.22 [id number] BEKAH ALMANZA MD [facility] [address] [place] [address] 01/19/2024 15:26:26 01/19/2024 16:24:30 Administration of viral vaccine 29696117 Z23 Uncontroll ed type 2 diabetes mellitus 966024811 E11.65 Anemia 819190825 D64.9 Chronic at rial fibrillation 375098860 I48.20 Chronic ki dney disease stage 3 050999276 N18.30 [id number] BEKAH ALMANZA MD [facility] [address] [place] [address] 02/09/2024 15:21:13 02/09/2024 16:01:12 Dementia 01687793 F03.90 Anemia 873739195 D64.9 Atrial fibrillation 4943 6004 I48.91 Chronic ki dney disease stage 3 021961262 N18.30 Chronic ob structive pulmonary disease 08091473 J44.9 Generalize d anxiety disorder 06550340 F41.1 Chronic sy stolic heart failure 554197735 I50.22 Peripheral neuropathy due to type 2 diabetes mellitus 2939840125 107 E11.42 History of deep vein thrombosis 702035895 Z86.718 Vitamin B1 2 deficiency (non anemic) 47188548 E53.8 Morbid obesity 622891422 E66.01 Bilateral osteoarthritis of knees 3818635597 42059 M17.0 [id number] BEKAH ALMANZA MD [facility] [address] [place] [address] 04/04/2024 15:11:37 04/04/2024 15:59:37 Peripheral neuropathy due to type 2 diabetes mellitus 4271226657 107 E11.42 Hyperglyce isabela due to type 2 diabetes mellitus 8185017227 87065 E11.65 Morbid obesity 404585064 E66.01 Atrial fibrillation 4943 6004 I48.91 Bilateral osteoarthritis of knees 7880606118 53661 M17.0 Chronic 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 6403794009 08 E11.22 Anemia 616561990 D64.9 Benign pro static hyperplasia with outflow obstruction 457101508 N40.1 Chronic ki dney disease stage 3 141222430 N18.30 Chronic ob structive pulmonary disease 62234415 J44.9 Chronic sy stolic heart failure 449971161 I50.22 Dementia 90587046 F03.90 Generalize d anxiety disorder 27166358 F41.1 History of deep vein thrombosis 050664133 Z86.718 Vitamin B1 2 deficiency (non anemic) 37331968 E53.8 Recurrent urinary tract infection 762463229 N39.0 Onychomycosis 314038721 B35.1 Mood swings 59368186 R45 .86 [id number] DONAVON PEDROZA MD [facility]IV E CARE CLOSED [address] [place] [address] 04/13/2024 13:38:03 04/20/2024 14:57:40 Generalized anxiety disorder 80510074 F41.1 - Will switch from citalopram to escitalopr am. Discussed with family stopping the citalopram 1 day and starting the escitalopr am the following day Moderate dementia 105870 2228 79722 F03.B3 - Will drop donepezil down to 5 mg. Patient does not have Alzheimer' s dementia and he is not really certain of the benefit. Discussed this with the family. Do worry that this could also be contributi ng to impact on mood and contribute to insomnia as well. Palliative care 21092466 9 Z51.5 - Here to establish with palliative care Advance care planning 71 0098722 Z71.89 - His Chary is his healthcare surrogate. He does not have any official ACP documents in place. We did discuss CODE STATUS and she states that she would want everything done. She does states she knows focusing on quality of life would be important as well. Will mail a 5 wishes document to help with some of these conversati ons [id number] MARIO SUE PA-C PALLIATIV E CARE CLOSED [address] [place] [address] 05/29/2024 14:45:31 05/30/2024 14:01:23 Generalized anxiety disorder 06303002 F41.1 - Recent switch from citalopram to escitalopr am. He will continue with escitalopr am 10 mg daily Moderate dementia 029764 3576 25735 F03.B3 - Recent decrease of donepezil down to 5 mg. Patient does not have Alzheimer' s dementia and he is not really certain of the benefit. We will stop donepezil at this point and recheck in office in 1 month Palliative care 69801973 9 Z51.5 - Here to follow up with palliative care Depressive disorder 8444 9007 F32.A F33.9 Will continue with escitalopr am 10 milligrams as well as quetiapine half tablet twice daily with extra half tablet to be taken as needed in the afternoon or evening. Continue with behavior modificati ons with exercise regularly routine care and music therapy as needed throughout the day. I will call for recheck with his next week and recheck with telehealth in 1 month [id number] BEKAH ALMANZA MD PRIMARY CARE [facility] [address] [place] [address] 06/07/2024 15:04:58 06/07/2024 16:11:10 Chronic ki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 2 diabetes mellitus 3472594269 08 E11.22 Morbid obesity 991022142 E66.01 Neuropathy due to type 2 diabetes mellitus 3522581792 30884 E11.40 Anemia 560019651 D64.9 Aneurysm o f thoracic aorta 060878089 I71.20 Atrial fibrillation 4943 6004 I48.91 Benign pro static hyperplasia with outflow obstruction 911220069 N40.1 Bilateral osteoarthritis of knees 4702724980 19197 M17.0 Chronic ki dney disease stage 3 574887514 N18.30 Chronic ob structive pulmonary disease 17153736 J44.9 Chronic sy stolic heart failure 245668921 I50.22 History of deep vein thrombosis 759909921 Z86.718 Moderate dementia 011103 8702 78563 F03.B3 Obesity 657684459 E66.9 Vitamin B1 2 deficiency (non anemic) 53431162 E53.8 Type 2 prashant betes mellitus 60040118 E11.9 Administra tion of influenza vaccine 72597612 Z23 [id number] DONAVON PEDROZA MD [facility] E [facility] CLOSED [address] [place] [address] 07/04/2024 11:16:53 07/05/2024 04:27:08 Peripheral neuropathy due to type 2 diabetes mellitus 5279819751 107 E11.42 -will reduce gabapentin down to 400mg BID with significan t sedation. Instructed to stop 800mg dose Palliative care 42683162 9 Z51.5 - Here to establish with palliative care Fatigue 07920805 R53.83 - reporting significan t fatigue Generalize d anxiety disorder 73816276 F41.1 -switched from citalopram to escitalopr am Difficulty walking 81766 2002 R26.2 -Patient needs home health for PT/OT and nursing for medication checks [id number] MARIO SUE PA-C PALLIATIV E CARE CLOSED [address] [place] [address] 07/17/2024 11:23:31 07/19/2024 10:39:04 Peripheral neuropathy due to type 2 diabetes mellitus 3930325128 [address] 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 They will cotton picker operator Rx today and continue at lower dose to see if this will help with his fatigue symptoms Palliative care 57228385 9 Z51.5 - Here to follow up with palliative care Fatigue 04961576 R53.83 - reporting significan t fatigue but improved without taking quetiapine Generalize d anxiety disorder 67110902 F41.1 Continue with escitalopr am 10 mg daily and advised on 1/2 tablet of quetiapine in the evenings to help with agitation in the evening and sleep cycle Difficulty walking 41695 2002 R26.2 Patient will proceed with physical therapy and increase movement throughout the day. We will reassess in 1 month [id number] DONAVON PEDROZA MD PALLIATIV E CARE CLOSED [address] [place] [address] 09/07/2024 09:19:51 09/08/2024 04:08:40 Palliative care 431279423 Z51.5 - Here to establish with palliative care Impaired mobility 677220 05 Z74.09 Will reorder PT OT with home health Pain of bi lateral knee joints 5389752708 06181 M25.561 - Currently follows with Ortho and gets injections regularly. He is also taking Percocet twice daily. We discussed that he can also take Tylenol 1000 mg twice daily. [id number] BEKAH ALMANZA MD PRIMARY CARE [facility] [address] [facility] [address] [place] [address] 09/19/2024 14:51:33 09/19/2024 15:57:43 Morbid obesity 873487283 E66.01 Anemia 184829441 D64.9 Aneurysm o f thoracic aorta 252239311 I71.20 Atrial fibrillation 4943 6004 I48.91 Benign pro static hyperplasia with outflow obstruction 049994781 N40.1 Bilateral osteoarthritis of knees 9769142736 61356 M17.0 Chronic ki dney disease stage 3 801408390 N18.30 Chronic ob structive pulmonary disease 53790897 J44.9 Dementia 19646045 F03.90 History of deep vein thrombosis 761027132 Z86.718 Hyperglyce isabela due to type 2 diabetes mellitus 0329931577 00543 E11.65 Obesity 455152922 E66.9 Vitamin B1 2 deficiency (non anemic) 34803008 E53.8 Pain of le ft shoulder joint 2860972386 5065550 M25.512 Disorder o f nervous system due to type 2 diabetes mellitus 243230639 E11.42 [id number] MAURILIO DAVILA, NEUROLOGY [address] [place] [address] 01/31/2025 14:13:14 02/01/2025 04:47:32 Senile dementia 34850259 G30.1 F02.B11 9137417181 Significan t cognitive impairment s consistent with a dementia process. He has multiple siblings with AD that have .Will order MRI brain as he has not had any prior brain imaging.I would recommend a trial of memantine. They are educated on the purpose of this medication which is to try to slow down progressio n. It will not improve memory. His is educated on potential side effects and she will let me know if he has any concerns once he tries the medication .He should avoid donepezil due to his A fib.He has 24hour supervisio n.He does not driveHe has behavioral disturbanc es but no physically violent behaviors with current dose of seroquel. [id number] BEKAH ALMANZA MD PRIMARY CARE [address] [place] [address] 11/16/2024 11:10:23 11/16/2024 12:03:56 Morbid obesity 273165918 E66.01 Neuropathy due to type 2 diabetes mellitus 4418723862 87343 E11.40 Anemia 761826835 D64.9 Chronic at rial fibrillation 507316636 I48.20 Bilateral osteoarthritis of knees 1131977609 63080 M17.0 Benign pro static hyperplasia with outflow obstruction 072318614 N40.1 Chronic ki dney disease stage 3 409006411 N18.30 Chronic ob structive pulmonary disease 61409016 J44.9 Chronic sy stolic heart failure 642672030 I50.22 Dementia 77479837 F03.90 Generalize d anxiety disorder 53806665 F41.1 Hyperglyce isabela due to type 2 diabetes mellitus 8010485218 01369 E11.65 Vitamin B1 2 deficiency (non anemic) 90660120 E53.8 [id number] BEKAH ALMANZA MD PRIMARY CARE [address] [place] [address] 12/20/2024 10:42:05 12/20/2024 11:09:23 Morbid obesity 908869139 E66.01 Neuropathy due to type 2 diabetes mellitus 1044967452 11442 E11.40 Anemia 757938636 D64.9 Aneurysm o f thoracic aorta 054349264 I71.20 Benign pro static hyperplasia with outflow obstruction 804079214 N40.1 Bilateral osteoarthritis of knees 2766159510 55200 M17.0 Chronic at rial fibrillation 280224160 I48.20 Chronic ki dney disease stage 3 052245624 N18.30 Chronic ob structive pulmonary disease 41323540 J44.9 Chronic sy stolic heart failure 005212487 I50.22 Dementia 91455109 F03.90 Vitamin B1 2 deficiency (non anemic) 30643288 E53.8 [id number] BEKAH ALMANZA MD PRIMARY CARE [address] [place] [address] 02/15/2025 10:19:19 02/15/2025 10:58:43 Mood swings 64431606 R45.86 Generalize d anxiety disorder 62087227 F41.1 Chronic sy stolic heart failure 230276966 I50.22 Chronic at rial fibrillation 711010744 I48.20 History of deep vein thrombosis 727594435 Z86.718 Hyperglyce isabela due to type 2 diabetes mellitus 7091037910 27004 E11.65 Obesity 299864549 E66.9 Vitamin B1 2 deficiency (non anemic) 26701276 E53.8 Chronic ki dney disease stage 3 756921497 N18.30 Benign pro static hyperplasia with outflow obstruction 273699542 N40.1 Anemia 871425092 D64.9 Bilateral osteoarthritis of knees 9597633847 28633 M17.0 Moderate dementia 109249 3617 12096 F03.B3 Peripheral neuropathy due to type 2 diabetes mellitus 6030390352 107 E11.42 Chronic ob structive pulmonary disease 13397825 J44.9 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 57779442 F33.2 [id number] BEKAH ALMANZA MD PRIMARY CARE [address] [place] [address] 03/07/2025 11:08:01 03/07/2025 11:34:53 Mood swings 40832981 R45.86 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 20392164 F33.2 Chronic sy stolic heart failure 982258710 I50.22 Chronic at rial fibrillation 498111691 I48.20 Generalize d anxiety disorder 89469531 F41.1 History of deep vein thrombosis 131265385 Z86.718 Hyperglyce isabela due to type 2 diabetes mellitus 3177588862 77511 E11.65 Vitamin B1 2 deficiency (non anemic) 27471961 E53.8 Chronic ki dney disease stage 3 100333585 N18.30 Benign pro static hyperplasia with outflow obstruction 627607234 N40.1 Chronic 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 3189815793 08 E11.22 Anemia 329289579 D64.9 Bilateral osteoarthritis of knees 2383493640 83099 M17.0 Moderate dementia 641413 3556 27997 F03.B3 Peripheral neuropathy due to type 2 diabetes mellitus 2425002718 107 E11.42 Chronic ob structive pulmonary disease 64484522 J44.9 Morbid obesity 512674873 E66.01 [id number] BEKAH ALMANZA MD PRIMARY CARE [facility] [address] [facility],[address] [place] [address] 04/18/2025 10:50:05 04/18/2025 12:42:51 Generalized anxiety disorder 36954650 F41.1 Chronic sy stolic heart failure 226283698 I50.22 Chronic at rial fibrillation 880882019 I48.20 History of deep vein thrombosis 017405909 Z86.718 Hyperglyce isabela due to type 2 diabetes mellitus 8752711584 92425 E11.65 Vitamin B1 2 deficiency (non anemic) 86050798 E53.8 Obesity 740380136 E66.9 Chronic ki dney disease stage 3 290092578 N18.30 Benign pro static hyperplasia with outflow obstruction 221778254 N40.1 Anemia 747498954 D64.9 Bilateral osteoarthritis of knees 7232495092 51250 M17.0 Dementia 98532223 F03.90 Peripheral neuropathy due to type 2 diabetes mellitus 7983565128 107 E11.42 Chronic ob structive pulmonary disease 90769481 J44.9 Pruritic rash 46551246 L 29.89 5929987 Health Concerns Section Related Observation LastModified by Organization Detai ls LastModified Time None Recorded Concern Status LastModified by Organization Details LastModified Time None Recorded Advance Directives Directive None Recorded Payers Insurance Date Sequence Insurance Name Policy Number Policy Loera Covered Member ID Loera Member ID Guarantor Name 05/05/2025 1 [employer] (MEDICARE REPLACEMENT/AD VANTAGE - PPO) [id number] Boubacar Baxter [id number] Boubacar Baxter 11/17/2024 1 [place]MEDICARE REPLACEMENT HMO) [id number] Boubacar Baxter [id number] Boubacar Baxter Notes Date Note Type Note Provider Name and Address Organization Details Recorded Time 12/20/2024 text/html ROS as noted in the HPI Interval hospitalizations:[facility] dication changes:noOther physician visits:noExercise level:lowTobacco or alcohol use:shot of moonshine every 6 monthsHave you had any recent chest pain or unusual dyspnea ?noMashley Baxter is a 84-year-old who comes in for follow-up multiple chronic medical conditions. No recent ER visits. He denies any recent falls. He denies any chest pain or unusual dyspnea recently. He is still driving some short distances locally against the wishes of his and family. His blood sugars are checked at home daily. He is here with his grandson. Appetite has been good. He is lost 8 pounds in the past 1 month BEKAH ALMANZA MD [address] [place] [address], [address], [facility] 12/24/2024 22:46:46 01/31/2025 text/html 84 y/o right handed male here for neurologic consultation requested by Dr Almanza regarding dementia. His accompanies him and provides the history. Boubacar was diagnosed with dementia about two years ago. His describes a progressive decline in short term memory. He will repeat himself and not recall something they talked about maybe 30 minutes prior. He has been prone to lose things around the house.He has has also had significant issues with agitation, verbal outbursts and sometimes some aggressive physical behaviors. He is currently not on any memory enhancing medications. He is followed by palliative care. They weaned off donepezil last March due to concerns this was causing agitation. They prescribe him escitalopram and quetiapine for moods. He also had xanax for anxiety.He is on gabapentin for diabetic neuropathy pain. He is prescribed oxycodone for DJD pain.He has Afib and in on Xarelto. His does not feel that once off the donepezil that his moods got any better. In fact his cognitive symptoms has gotten much worse. He is very confused thinking his siblings are alive. He really struggles to find words when he is trying to talk. He seems very anxious and paranoid. He can't follow instructions or keep track of time.He still does fairly well at dressing and bathing himself but does need prompts.He has not been violent but still uses bad language which is not normal for him. She does feel the quetiapine has helped with the violent behaviors. They do not believe he has ever had any brain imaging.He had labs done in December. His Cr was 1.56 which is up from prior labs. A1C was 7.2 which is also trending up. He has low platelets at 144 which is somewhat stable compared to prior labs. MAURILIO DAVILA DO [address] [place], [address], [facility] 01/31/2025 17:13:01 02/15/2025 text/html ROS as noted in the HPI Interval hospitalizations:[facility] dication changes:no changesOther physician visits:02/14/25 MRI doneExercise level:active when he can due to knee painTobacco or alcohol use:noneHave you had any recent chest pain or unusual dyspnea ?noMr. Baxter is a 85-year-old who comes today for follow-up multiple chronic medical conditions. His main complaint is that of chronic daily pain in both knees which is worse with walking. He has known severe osteoarthritis. He is not a surgical candidate and has had previous cortisone injections in both knees. He walks with a walker or a cane. The right knee is currently slightly worse than the left. No recent falls. He eats 3 meals daily[address] He saw Dr. Maurilio Davila from neurology 2 weeks ago who added memantine 5 mg twice daily for his dementia. He had an MRI of the brain done February 13 with results pending. His blood sugars at home recently have been checked 2 or 3 times per week and have ranged between 80 and 250. He is taking Tresiba insulin 32 units daily for 5 or 6 days/week on average. He drinks 2 or 3 glasses of water daily. BEKAH ALMANZA MD [facility] [place], [address], [facility] 02/18/2025 21:14:53 03/07/2025 text/html ROS as noted in the HPI Interval hospitalizations:[facility] dication changes:no changesOther physician visits:noExercise level:none hard to walkTobacco or alcohol use: drink of moonshine every 2 to 3 monthsHave you had any recent chest pain or unusual dyspnea ?noMr. Baxter is a 85-year-old who comes today with family complaining of increased swelling in both feet and ankles recently in the last 1 to 2 weeks. Right foot has been worse than the left. He denies adding extra salt to his food. He has been taking Lasix 20 mg every other day. His blood sugars have been checked at home daily recently and have ranged between 179 and 269. His hemoglobin A1c was 6.4 just 3 weeks ago. BEKAH ALMANZA MD [address] [place] [address], [phone], [facility] 03/08/2025 07:18:33 04/18/2025 text/html ROS as noted in the HPI Interval hospitalizations:[facility] regarding a bump on his chestMedication changes:no [...] he [facility] due to a tender painful sebaceous cyst [...] skin earlier this summer. BEKAH ALMANZA MD [address] [place] [address] [place], [address], [facility] 04/18/2025 22:19:59
--- OUTSIDE RECORDS SUMMARY | 2025-06-01 13:57 | XMS_ITS | Patient Health Record ---
Author Organization [facility] Address [address] [place] [address] [place] [address] Care Team Providers Care Concession Worker Name Role Phone Jeremie Schneider Primary Care [...] Status W/U Status Risk Notes Problem Diverticulitis (12551736) Diverticulitis (K57.92) Active confirmed Problem Type II diabetes mellitus without complication (199964535) Controlled type 2 diabetes mellitus without complication, without long-term current use of insulin (E11.9) Active confirmed Problem Diverticulitis of colon (875480666) Diverticulitis of intestine without perforation or abscess without bleeding, unspecified part of intestinal tract (K57.92) Active confirmed Encounters Encounter Location Date Provider Diagnosis [facility] P[facility] [address] [place] [address] [place] [address] 11/18/2024 Provider Migration Plan Of Treatment No Information Insurance Providers Payer Name Payer Address Payer Phone Subscriber Number Group Number Insured Name Patient Relationship to Insured Coverage Start Date Coverage End Date [employer] MEDICARE [address] [place] [address] [id number] Boubacar Baxter Self - patient is the insured Medical (General) History Medical History History ICD Code Diabetes Anxiety Arthritis Surgical History Surgery Date(Month/Year) removal of lung to clean/put back in 199 5 fractured ankles Hospitalization History Reason Date(Month/Year) removal of lung to clean/put back in 199 5 pneumonia 2020
--- OUTSIDE RECORDS SUMMARY | 2025-06-01 13:57 | XMS_ITS | Clinical Summary ---
[facility] Organization [facility] Address [address] [place] [address] Care Team Providers Care Senior Software Qa Engineer Name Role Phone Chaparro Almanza MD Primary Care Provider [phone] Allergies No known active allergies Medications Insulin [...] 06/10/2022 3:18 PM EDT Plan of Treatment Health Maintenance Due Date Last Done Comments DIABETIC EYE EXAM 1950 DIABETIC FOOT EXAM 1950 URINE MICROALBUMIN-CREATININ E RATIO (uACR) 1949 TDAP/TD VACCINES (1 - Tdap) 1958 RSV Vaccine - Adults (1 - 1- dose 75+ series) 2014 Pneumococcal Vaccine 50+ (2 of 2 - PPSV23, PCV20, or PCV21) 05/04/2017 03/09/2017 ANNUAL WELLNESS VISIT 06/10/2022 HEMOGLOBIN A1C 06/10/2022 ZOSTER VACCINE (2 of 2) 03/15/2024 01/19/2024 INFLUENZA VACCINE 03/16/2025 10/02/2024, , 05/14/2023, Additional history exists COVID-19 Vaccine (5 - 2024-2 6 season) 2025 12/29/2021, 05/24/2021, 10/15/2020, Additional history exists Procedures Procedure Name Priority Date/Time Associated Diagnosis Comments SCANNED - LABS 04/18/2025 from Last 3 Months Results * LABS SCANNED (04/18/2025) Cindy Steiner APRN LAB BLOOD ORDERABLES Final Result from Last 3 Months Insurance [place] [id number] [employer] MEDICARE ADVANTAGE PPO Care Teams Senior Software Qa Engineer Relationship Specialty Start Date End Date Chaparro Almanza MD [address] [place] [address] PCP - General Internal Medicine 05/29/22
--- OUTSIDE RECORDS SUMMARY | 2025-06-01 13:57 | XMS_ITS | Referral Summary ---
Author Organization [facility] ([place], [place], [place], [place]) Address [address] [place] [address] Care Team Providers Care Teacher Preschool Name Role Phone Chaparro Almanza MD Primary Care Provider [phone] [phone] Allergies No known active allergies Medications ALPRAZolam [...] the past 12 months, has t he [email or web address], gas, oil, or water [employer] threatened to shut off services in your [...] Do you speak a language other than [place]an [facility]? No 12/29/2023 Do you want help [...] Plan of Treatment Not on file Insurance [facility] ANTH MEDIBLUE ACCESS HMO MAP Advance Directives For more information, please contact: [phone] * Full Code (Latest Code Status on File) Date Activated Date Inactivated Comments 12/29/2023 6:25 PM 01/02/2024 1:11 PM Care Teams Teacher Preschool Relationship Specialty Start Date End Date Chaparro Almanza MD [address] [facility] [address] [place] [address] PCP - General General Internal Medicine 12/29/23
--- NOTE | 2025-06-01 14:03 | CT_ITS ---
FINAL REPORT TECHNIQUE: Thin section axial images are obtained through the abdomen and pelvis after intravenous contrast. Reconstruction images were obtained from the axial data. Exam was performed using dose reduction techniques. CLINICAL HISTORY: Extensive abdominal surgical history, no BM 48h COMPARISON: 03/26/2024 FINDINGS: LUNG BASES: The heart is mildly enlarged. Scarring is noted at the left lung base. LIVER: Homogeneous. No focal lesion. GALLBLADDER/BILIARY SYSTEM: Gallbladder is distended. Abnormal attenuation surrounds the gallbladder. There may be small stones. No biliary dilatation. SPLEEN: Unremarkable. PANCREAS: Unremarkable. ADRENALS: Unremarkable. KIDNEYS/URETERS/BLADDER: Multiple bilateral renal cysts. 42 mm cyst in the lower pole of the left kidney with at least 1 thin septa. Nonobstructing stones in the right kidney. Unremarkable urinary bladder. GI TRACT: Moderate hiatal hernia. Appendix not seen but no secondary signs of acute appendicitis. Extensive diverticulosis. Amount of stool in the cecum. Otherwise, there is a normal amount of stool. There appears to be mild wall thickening of the distal rectum. Proctitis is not excluded. PELVIC ORGANS: Unremarkable for age. LYMPH NODES/RETROPERITONEUM/MESENTERY: No lymphadenopathy. No abdominal aortic aneurysm. ABDOMINAL WALL: The abdominal wall is intact. FREE FLUID: No ascites. BONES: No acute osseous abnormality. IMPRESSION: Distended gallbladder with surrounding abnormal attenuation, cholecystitis not excluded. Wall thickening of the rectum, proctitis not excluded. Please correlate clinically. Bilateral renal cysts. Reviewed, Interpreted and Dictated by Soraya Andrea MD Transcribed by Marie Malone Authenticated and [facility]
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
[2025-06-01 14:21] LABS: Lactate Venous 1.7 mmol/L (0.4-2.0); VBG HCO3 26.7 mmol/L (23-30); VBG PCO2 45.6 mmol/L (35-51); VBG PH 7.39 mmol/L (7.31-7.41); VBG PO2 56.3 mmol/L (28-40)
--- NOTE | 2025-06-01 14:21 | ECG_ITS ---
APPROVED REPORT Exam: Resting ECG HR:108 bpm ECG Measurements Heart Rate 108 AXES QRSd 147 QRS -69 QT 371 T 66 QTc 434 Conclusion ATRIAL FIBRILLATION WITH RAPID VENTRICULAR RESPONSE LEFT AXIS DEVIATION [QRS AXIS < -30] RIGHT BUNDLE BRANCH BLOCK [120+ ms QRS DURATION, UPRIGHT V1, 40+ ms S IN I/aVL/V4/V5/V6] ABNORMAL ECG Electronically signed by : LUISA FLORES, 06/01/2025 16:11:03
[2025-06-01 14:22] LABS: Hematocrit 43.4 % (42.0-52.0); Hemoglobin 14.2 g/dL (14.1-18.0); Immature Granulocytes % 0.4 %; Mean Corpuscular HGB Conc 32.7 g/dL (31.8-35.4); Mean Corpuscular Hemoglobin 29.6 pg (27.0-31.2); Mean Corpuscular Volume 90.6 fl (80-94); Nucleated Red Blood Cells % 0 %; Platelet Count 150 K/mm3 (142-424); Red Blood Count 4.79 M/mm3 (4.60-6.20); Red Cell Distribution Width-SD 45.8 fL; White Blood Count 9.8 K/mm3 (4.8-10.8)
[2025-06-01] MEDS: LACTATED RINGERS 1000ML 1,000 ML 999 ML IV ×2 (14:22→15:49)
[2025-06-01] MEDS: ONDANSETRON 4MG/2ML VIAL 4 MG IV ×2 (14:23→22:40)
[2025-06-01] MEDS: MORPHINE 4MG/ML SYRINGE 4 MG IV ×2 (14:24→22:39)
[2025-06-01] MEDS: ACETAMINOPHEN 1,000MG/100ML VIAL 1000 MG IV (14:27)
[2025-06-01 14:40] LABS: Albumin Level 4.3 g/dl (3.5-5.0); Chloride 95 mmol/L (98-107)
[2025-06-01 14:41] LABS: Potassium 3.9 mmoL/L (3.5-5.1); Sodium 135 mmol/L (136-145)
[2025-06-01 14:43] LABS: Alanine Aminotransferase 19 U/L (12-78); Albumin/Globulin Ratio 1.5 (1.1-1.8); Alkaline Phosphatase 60 U/L (38-126); Anion Gap 11.9 mEq/L (5-15); Aspartate Amino Transferase 29 U/L (17-59); Bilirubin,Total 1.2 mg/dl (0.2-1.3); Blood Urea Nitrogen 19 mg/dl (9-20); Carbon Dioxide 32 mmol/L (22.0-30.0); Creatinine Clearance Estimated 78 mL/min (50-200); Creatinine,Serum 1.00 mg/dl (0.66-1.25); Estimated Glomerular Filt Rate 71 ml/min (>60); GFR (African American) 86 ML/MIN (>60); Globulin 2.8 g/dL (1.3-3.2); Total Protein,Serum 7.1 g/dl (6.3-8.2)
[2025-06-01 14:44] LABS: Calcium 9.0 mg/dl (8.4-10.2); Glucose 171 mg/dl (74-100); Lipase 70 U/L (23-300)
[2025-06-01] MEDS: IOPAMIDOL-370 (76%);100ML BOTTLE 75 ML IV (15:08)
[2025-06-01] MEDS: SODIUM CHLORIDE 0.9% 10ML SYR (RAD ONLY) 10 ML IV (15:08)
[2025-06-01 15:22] LABS: Magnesium 1.0 mg/dl (1.6-2.3)
[2025-06-01 15:26] LABS: Microscopic, Urine URINE MICROSCOPIC (MICROSCOPIC)
[2025-06-01 15:41] LABS: Bilirubin,Urine Negative (Negative); Color,Urine YELLOW (Yellow); Glucose,Urine (UA) Negative (Negative); Ketones,Urine Negative (Negative); Leukocyte Esterase,Urine Negative (Negative); PH,Urine 7.0 (5.0-8.5); Protein,Urine Negative (Negative); Specific Gravity, Urine 1.010 (1.005-1.030); Urobilinogen,Urine 0.2 EU/dl (0.2)
[2025-06-01 15:49] LABS: RBC,Urine Occasional #/hpf (0-3); Squamous Epithelial Cell,Urine Occasional #/hpf (0-5)
[2025-06-01] MEDS: MAGNESIUM SULFATE IN WATER 2 GM/50 ML PIGGYBACK IV (15:51)
[2025-06-01] MEDS: PIPERACILLIN/TAZO 4.5 GM in 0.9 % SODIUM CHLORIDE 100 ML IV (15:52)
--- NOTE | 2025-06-01 17:45 | P.HP_ITS ---
<Statement entered by Clemente Isabel MD - 06/02/25 12:03> Rounded on patient after nurse practitioner. Personally examined and interviewed patient. Agree with exam findings and care plan as documented. History of Present Illness *Admission Date: 06/01/25 *Reason for visit:: abd pain, constipation *History of present illness: 85-year-old male patient presents to ER with complaints of abdominal pain constipation and an episode of vomiting. He has had abdominal pain for the last 3 days and has not had a bowel movement. They did try suppositories x 3 without results. Then today he had an episode of vomiting and they brought him into the ER for further evaluation. Granddaughter is at bedside and unfortunately does not know a lot of his past medical history. Patient has dementia and is very pleasantly confused to history and events. He is oriented to place and person but he could not tell me the year. ER workup revealed an elevated neutrophil count without leukocytosis. Chemistry panel was essentially unremarkable with the exception of elevated glucose at 171 and a magnesium of 1.0 CT revealed a distended gallbladder with some abnormal attenuation possibly cholecystitis. There was also wall thickening of the rectum possibly indicating proctitis. [facility] Disclaimer: The information contained in this section may have been updated after the patient was seen, as this information can be updated by other users. Medical History (Updated 06/01/25 @ 20:31 by Radha Tiwari APRN) Dementia COPD (chronic obstructive pulmonary disease) Abscess of lung Acute diverticulitis Arthritis Diabetes Afib Hypotension Abnormal electrocardiography Dyspnea Surgical History (Updated 06/01/25 @ 20:21 by Radha Tiwari APRN) History of total right knee replacement Family History (Reviewed 11/02/24 @ 10:44 by Horace Blount [facility]) Other Family history of cancer Social History (Updated 06/01/25 @ 20:21 by Radha Tiwari APRN) Smoking Status: Former smoker smoking status stop date: 25 years ago alcohol intake: former substance use type: denies use current occupational status: disabled Travel in the last 8 weeks?: [place] the [place] household members: spouse and children housing: house Have you lived/traveled outside US in past 30 days?: No Contact w/someone who lives/traveled outside US past 30 days?: No Exposure to someone with infectious disease in past 14 days?: No Do you have a fever (greater than 100.4 F or 38 C)?: No Have you tested positive for COVID-19?: No Exposed to someone with COVID-19 in past 14 days?: No Do you have a sore throat?: No Do you have a cough?: No Do you have any weakness?: No Do you have any diarrhea?: No Are you experiencing any unusual bleeding?: No Do you have any muscle aches/pain?: No Do you have any abdominal pain?: No Are you experiencing loss of taste or smell?: No Other Medical History Have you received the Flu Vaccine for this season: No Have you received the Pneumonia Vaccine: Yes Review of Systems Constitutional Constitutional: Denies body ache(s), Denies chills and Denies fever(s) Eyes Eyes: Reports system reviewed and no additional complaints, except as documented ENT Ears, Nose, Mouth, and Throat: Reports system reviewed and no additional complaints, except as documented *Cardiovascular Cardiovascular: Denies chest pain and Denies dyspnea *Respiratory Respiratory: Denies cough and Denies dyspnea *Gastrointestinal Gastrointestinal: Reports abdominal pain, Reports constipation and Reports vomiting *Genitourinary Genitourinary: Reports system reviewed and no additional complaints, except as documented *Musculoskeletal Musculoskeletal: Reports system reviewed and no additional complaints, except as documented *Neurologic Neurologic: Reports confusion Psychiatric Psychiatric: Reports confusion Endocrine Endocrine: Reports system reviewed and no additional complaints, except as documented Hematologic/Lymphatic Hematologic/Lymphatic: Reports system reviewed and no additional complaints, except as documented Meds Home Medications and Allergies Home Medications ?Medication ?Instructions ?Recorded ?Confirmed ?Type finasteride 5 mg tablet 5 mg PO DAILY 05/12/2111/02 History metformin 1,000 mg tablet 1,000 mg PO BIDWMEAL 1 11/02/24 History donepezil 10 mg tablet 10 mg PO HS 03/26/22 5 History tamsulosin 0.4 mg capsule 0.4 mg PO HS 03/26/22 History rivaroxaban 20 mg tablet 20 mg PO QPMWITHMEAL 2 11/02/24 History esomeprazole magnesium 40 mg 40 mg PO DAILY 12/05/22 0 11/02/24 History capsule,delayed release insulin degludec 100 unit/mL (3 20 unit SQ DAILY 12/0511/02/24 History mL) subcutaneous pen (Tresiba FlexTouch U-100 insulin) midodrine 5 mg tablet 5 mg PO TID 12/05/22 5 History citalopram 20 mg tablet 20 mg PO DAILY 11/27/2310/15 History ferrous sulfate 325 mg (65 mg 325 mg PO DAILY 11/27/23 11/02/24 History iron) tablet (FeroSul) alprazolam 0.5 mg tablet 0.5 mg PO BIDP PRN Anxiety 1 0 days 11/29/23 11/02/24 Rx #20 tabs docusate sodium 100 mg capsule 100 mg PO DAILY 30 days #30 caps 11/29/23 11/02/24 Rx gabapentin 800 mg tablet 800 mg PO BID 10 days #20 ta bs 11/29/23 11/02/24 Rx magnesium oxide 400 mg (241.3 mg 400 mg PO BID 30 days #60 tabs 11/29/23 11/02/24 Rx magnesium) tablet hydrocodone 10 mg-acetaminophen 1 tab PO QIDP PRN Mode rate Pain 12/19/23 History 325 mg tablet (Scale Score 5-6) promethazine 25 mg tablet 12.5 mg PO Q6HP PRN Nausea A nd 12/19/23 11/02/24 History Vomiting metoprolol succinate 25 mg 25 mg PO BID 12/28/2311/02 History tablet,extended release 24 hr cefuroxime axetil 250 mg tablet 500 mg (2 x 250 mg) PO BID 5 days 03/27/24 11/02/24 Rx #20 tabs amoxicillin 875 mg-potassium 1 tab PO BID #14 tabs Rx clavulanate 125 mg tablet New Prescriptions to Start Prescriptions: Allergies Allergy/AdvReac Type Severity Reaction Status Date / Time No Known Allergies Allergy Verified 11/02/24 10:43 Exam Data for Last 24 hours Vital signs and Labs for Last 24 Hours: Temp Pulse Resp BP Pulse Ox O2 Del Method O2 Flow Rate 98.3 F 104 H 18 145/71 H 92 L Room Air 3 06/01/25 13:43 06/01/25 17:01 06/01/25 13:43 06/01/25 17:01 06/01/25 17:01 06/01/25 17:01 06/01/25 15:30 Laboratory Results - last 24 hr 06/01/25 14:10: WBC 9.8, RBC 4.79, Hgb 14.2, Hct 43.4, MCV 90.6, MCH 29.6, MCHC 32.7, RDW 13.6, Plt Count 150, MPV 9.4, Neut % (Auto) 82.9 H, Lymph % (Auto) 9.1 L, [place] % (Auto) 7.4, Eos % (Auto) 0.1, Baso % (Auto) 0.1, Neut # (Auto) 8.2 H, Lymph # (Auto) 0.9, [place] # (Auto) 0.7, Eos # (Auto) 0.0, Baso # (Auto) 0.0, VBG pH 7.39, VBG pCO2 45.6, VBG pO2 56.3 H, VBG HCO3 26.7, VBG Total CO2 28.1 H, VBG O2 Saturation 88.2 H, VBG Base Excess 1.6, VBG Lactic Acid 1.7, Sodium 135 L, Potassium 3.9, Chloride 95 L, Carbon Dioxide 32 H, Anion Gap 11.9, BUN 19, Creatinine 1.00, Estimated Creat Clear 78, Estimated GFR 71, Est GFR ( Amer) 86, Glucose 171 H, Calcium 9.0, Magnesium 1.0 L, Total Bilirubin 1.2, AST 29, ALT 19, Alkaline Phosphatase 60, Total Protein 7.1, Albumin 4.3, Globulin 2.8, Albumin/Globulin Ratio 1.5, Lipase 70 06/01/25 15:23: Urine Color Yellow, Urine Appearance Clear, Urine pH 7.0, Ur Specific [place] 1.010, Urine Protein Negative, Urine Glucose (UA) Negative, Urine Ketones Negative, Urine Blood Negative, Urine Nitrate Negative, Urine Bilirubin Negative, Urine Urobilinogen 0.2, Ur Leukocyte Esterase Negative, Urine RBC Occasional, Ur Squamous Epith Cells Occasional, Urine Bacteria None I & O for Last 24 hours: Intake & Output 05/29/25 05/30/25 05/31/25 06/01/25 23:59 23:59 23:59 23:59 Intake Total 2149 Balance 2149 Weight 103.419 kg Constitutional Constitutional: no acute distress *Routine HEENT Exam Head: Present normocephalic and atraumatic Eye: Present PERRL ENT: Present mucous membranes moist *Routine Neck Exam Neck: Present supple *Routine Respiratory Exam Respiratory: Present decreased breath sounds; Absent respiratory distress *Routine Cardiovascular Exam Cardiovascular: Present Normal S1, Normal S2 and irregular rhythm *Routine Abdominal Exam Abdominal: Present soft and tenderness Comments: Tender to palpation of the epigastric and right upper quadrant. Also some tenderness in the lower quadrant. Bowel sounds are hypoactive. *Routine Rectal Exam Rectal:: deferred *Routine Genitalia Exam Genitalia:: deferred *Routine Extremities Exam Extremities: Present pulses intact *Routine Skin Exam Skin: Present intact *Routine Neurological Exam Neurological: Present alert and moving all extremities Comments: Oriented to place and person only. Could not give me the year, unable to give history of events Routine Psychiatric Exam Psychiatric: Present normal affect Assessment and Plan *Assessment and plan (1) Acute cholecystitis: Status: Acute Category: Medical Code(s): K81.0 - Acute cholecystitis (2) CHF (congestive heart failure): Status: Acute Qualifiers: Heart failure chronicity: chronic Heart failure type: unspecified Qualified Code(s): I50.9 - Heart failure, unspecified Category: Medical Code(s): I50.9 - Heart failure, unspecified (3) Atrial fibrillation: Status: Acute Qualifiers: Atrial fibrillation type: unspecified chronic Qualified Code(s): I48.20 - Chronic atrial fibrillation, unspecified Category: Medical Code(s): I48.91 - Unspecified atrial fibrillation (4) T2DM (type 2 diabetes mellitus): Status: Acute Qualifiers: Diabetes mellitus complication status: without complication Diabetes mellitus biochemist insulin use: without jail use Qualified Code(s): E11.9 - Type 2 diabetes mellitus without complications Category: Medical Code(s): E11.9 - Type 2 diabetes mellitus without complications (5) Chronic anticoagulation: Status: Acute Category: Medical Code(s): Z79.01 - MCFP (current) use of anticoagulants (6) Hypomagnesemia: Status: Acute Category: Medical Code(s): E83.42 - Hypomagnesemia Plan After discussion with the ER, the patient was accepted for admission by Dr. Isabel. General surgery was consulted by the ED physician for possible cholecystitis. Plan for them to see in the morning. Patient was started on Zosyn in the ER, we will continue that. He was given IV fluids, morphine, Zofran and magnesium replacement. EMR does show history of congestive heart failure however I cannot find an echocardiogram. He is on Lasix at home and we will continue that. History of atrial fib, has a current rate of 108. He is on Xarelto for chronic anticoagulation. That will be held and he has been started on full dose Lovenox to bridge until surgery. We will provide sliding scale insulin coverage and hold his metformin. Repeat labs in the morning including magnesium level. Will continue replacement as necessary. 0540 patient's blood sugar has dropped into the 30s and despite multiple amps of D50 as well as D5 NS IV fluids it continues to drop. Patient was assessed. Seems to be more tender in the upper abdomen this morning. After an amp of D50 and blood sugar improved briefly he was awake and alert although confused, seems to be at his baseline. Blood pressure was also slightly low at 99 systolic. After a small fluid bolus that did improved to 115. Morning labs were ordered as well as a stat lactic and a stat EKG. EKG shows atrial fib without acute changes. Morning labs came back with white count of 17 which was 9.8 on admission, lactic was 0.9 and magnesium was 1.2. Electrolyte replacement is ordered. Discussed with surgeon on-call. Will obtain repeat CT scan of the abdomen without contrast. Will notify surgeon of results. Discussed the case with granddaughter who is in the room and then with the patient's by phone. Explained the plan of care and possibility of urgent/emergent surgery depending on CT findings. Patient's wishes to be a full code. Both verbalized understanding.
[2025-06-01] MEDS: MORPHINE 2MG/ML SYRINGE 4 MG IV (17:48)
--- NOTE | 2025-06-01 17:48 | PC.NURSE ---
supervisor felting contacted for bed.
--- NOTE | 2025-06-01 18:04 | EXP.SURG.CON ---
History of Present Illness *Admission Date: 06/01/25 *Reason for visit:: Abdominal pain *History of present illness: Patient is an 85-year-old male with history of congestive heart failure, atrial fibrillation, type 2 diabetes, on Xarelto who presented to the emergency department today with abdominal pain for 1 day with vomiting. He had been unable to keep anything down. Assessment in the emergency department revealed appreciable abdominal pain characterized by guarding. He was found to have critical hypomagnesemia. CBC reveals a normal white blood cell count with 83% neutrophils. There was strong concern for bowel obstruction. CT scan of the abdomen and pelvis with IV contrast revealed distended gallbladder with surrounding abnormal attenuation. Also some wall thickening of the rectum. Surgery was contacted. [facility] Disclaimer: The information contained in this section may have been updated after the patient was seen, as this information can be updated by other users. Medical History Abscess of lung Acute diverticulitis Arthritis Diabetes Afib Hypotension Abnormal electrocardiography Dyspnea Family History Other Family history of cancer Social History Smoking Status: Never smoker alcohol intake: never substance use type: denies use current occupational status: disabled Travel in the last 8 weeks?: [place] the [place] household members: spouse and children housing: house Have you lived/traveled outside US in past 30 days?: No Contact w/someone who lives/traveled outside US past 30 days?: No Exposure to someone with infectious disease in past 14 days?: No Do you have a fever (greater than 100.4 F or 38 C)?: No Have you tested positive for COVID-19?: No Exposed to someone with COVID-19 in past 14 days?: No Do you have a sore throat?: No Do you have a cough?: No Do you have any weakness?: No Do you have any diarrhea?: No Are you experiencing any unusual bleeding?: No Do you have any muscle aches/pain?: No Do you have any abdominal pain?: No Are you experiencing loss of taste or smell?: No Meds Home Medications and Allergies Home Medications ?Medication ?Instructions ?Recorded ?Confirmed ?Type finasteride 5 mg tablet 5 mg PO DAILY 05/12/21 11/02/24 History metformin 1,000 mg tablet 1,000 mg PO BIDWMEAL 05/12/21 11/02/24 History donepezil 10 mg tablet 10 mg PO HS 03/26/22 11/02/24 History tamsulosin 0.4 mg capsule 0.4 mg PO HS 03/26/22 11/02/24 History rivaroxaban 20 mg tablet 20 mg PO QPMWITHMEAL 04/27/22 11/02/24 History esomeprazole magnesium 40 mg 40 mg PO DAILY 12/05/22 11/02/24 History capsule,delayed release insulin degludec 100 unit/mL (3 20 unit SQ DAILY 12/05/22 11/02/24 History mL) subcutaneous pen (Tresiba FlexTouch U-100 insulin) midodrine 5 mg tablet 5 mg PO TID 12/05/22 11/02/24 History citalopram 20 mg tablet 20 mg PO DAILY 11/27/23 11/02/24 History ferrous sulfate 325 mg (65 mg 325 mg PO DAILY 11/27/23 11/02/24 History iron) tablet (FeroSul) alprazolam 0.5 mg tablet 0.5 mg PO BIDP PRN Anxiety 10 days 11/29/23 11/02/24 Rx #20 tabs docusate sodium 100 mg capsule 100 mg PO DAILY 30 days #30 caps 11/29/23 11/02/24 Rx gabapentin 800 mg tablet 800 mg PO BID 10 days #20 tabs 11/29/23 11/02/24 Rx magnesium oxide 400 mg (241.3 mg 400 mg PO BID 30 days #60 tabs 11/29/23 11/02/24 Rx magnesium) tablet hydrocodone 10 mg-acetaminophen 1 tab PO QIDP PRN Moderate Pain 12/19/23 11/02/24 History 325 mg tablet (Scale Score 5-6) promethazine 25 mg tablet 12.5 mg PO Q6HP PRN Nausea And 12/19/23 11/02/24 History Vomiting metoprolol succinate 25 mg 25 mg PO BID 12/28/23 11/02/24 History tablet,extended release 24 hr cefuroxime axetil 250 mg tablet 500 mg (2 x 250 mg) PO BID 5 days 03/27/24 11/02/24 Rx #20 tabs amoxicillin 875 mg-potassium 1 tab PO BID #14 tabs 04/01/25 Rx clavulanate 125 mg tablet New Prescriptions to Start Prescriptions: Allergies Allergy/AdvReac Type Severity Reaction Status Date / Time No Known Allergies Allergy Verified 11/02/24 10:43 Exam (Inpt) Vital signs and Labs for Last 24 Hours: Temp Pulse Resp BP Pulse Ox O2 Del Method O2 Flow Rate 98.3 F 104 H 18 145/71 H 92 L Room Air 3 06/01/25 13:43 06/01/25 17:01 06/01/25 13:43 06/01/25 17:01 06/01/25 17:01 06/01/25 17:01 06/01/25 15:30 Laboratory Results - last 24 hr 06/01/25 14:10: WBC 9.8, RBC 4.79, Hgb 14.2, Hct 43.4, MCV 90.6, MCH 29.6, MCHC 32.7, RDW 13.6, Plt Count 150, MPV 9.4, Neut % (Auto) 82.9 H, Lymph % (Auto) 9.1 L, [place] % (Auto) 7.4, Eos % (Auto) 0.1, Baso % (Auto) 0.1, Neut # (Auto) 8.2 H, Lymph # (Auto) 0.9, [place] # (Auto) 0.7, Eos # (Auto) 0.0, Baso # (Auto) 0.0, VBG pH 7.39, VBG pCO2 45.6, VBG pO2 56.3 H, VBG HCO3 26.7, VBG Total CO2 28.1 H, VBG O2 Saturation 88.2 H, VBG Base Excess 1.6, VBG Lactic Acid 1.7, Sodium 135 L, Potassium 3.9, Chloride 95 L, Carbon Dioxide 32 H, Anion Gap 11.9, BUN 19, Creatinine 1.00, Estimated Creat Clear 78, Estimated GFR 71, Est GFR ( Amer) 86, Glucose 171 H, Calcium 9.0, Magnesium 1.0 L, Total Bilirubin 1.2, AST 29, ALT 19, Alkaline Phosphatase 60, Total Protein 7.1, Albumin 4.3, Globulin 2.8, Albumin/Globulin Ratio 1.5, Lipase 70 06/01/25 15:23: Urine Color Yellow, Urine Appearance Clear, Urine pH 7.0, Ur Specific [place] 1.010, Urine Protein Negative, Urine Glucose (UA) Negative, Urine Ketones Negative, Urine Blood Negative, Urine Nitrate Negative, Urine Bilirubin Negative, Urine Urobilinogen 0.2, Ur Leukocyte Esterase Negative, Urine RBC Occasional, Ur Squamous Epith Cells Occasional, Urine Bacteria None I & O for Labs for Last 24 Hours: Intake & Output 05/30/25 05/31/25 06/01/25 06/02/25 11:59 11:59 11:59 11:59 Intake Total 2149 Balance 2149 Weight 228 lb Constitutional: mild distress and chronically ill appearing GI: Present distention, tenderness and Somers's sign Comments:: Abdomen is slightly distended. He has tenderness with guarding mostly in the right upper quadrant. Results Labs 06/01/25 14:10 06/01/25 14:10 Labs: Laboratory Results - last 24 hr 06/01/25 14:10: WBC 9.8, RBC 4.79, Hgb 14.2, Hct 43.4, MCV 90.6, MCH 29.6, MCHC 32.7, RDW 13.6, Plt Count 150, MPV 9.4, Neut % (Auto) 82.9 H, Lymph % (Auto) 9.1 L, [place] % (Auto) 7.4, Eos % (Auto) 0.1, Baso % (Auto) 0.1, Neut # (Auto) 8.2 H, Lymph # (Auto) 0.9, [place] # (Auto) 0.7, Eos # (Auto) 0.0, Baso # (Auto) 0.0, VBG pH 7.39, VBG pCO2 45.6, VBG pO2 56.3 H, VBG HCO3 26.7, VBG Total CO2 28.1 H, VBG O2 Saturation 88.2 H, VBG Base Excess 1.6, VBG Lactic Acid 1.7, Sodium 135 L, Potassium 3.9, Chloride 95 L, Carbon Dioxide 32 H, Anion Gap 11.9, BUN 19, Creatinine 1.00, Estimated Creat Clear 78, Estimated GFR 71, Est GFR ( Amer) 86, Glucose 171 H, Calcium 9.0, Magnesium 1.0 L, Total Bilirubin 1.2, AST 29, ALT 19, Alkaline Phosphatase 60, Total Protein 7.1, Albumin 4.3, Globulin 2.8, Albumin/Globulin Ratio 1.5, Lipase 70 06/01/25 15:23: Urine Color Yellow, Urine Appearance Clear, Urine pH 7.0, Ur Specific [place] 1.010, Urine Protein Negative, Urine Glucose (UA) Negative, Urine Ketones Negative, Urine Blood Negative, Urine Nitrate Negative, Urine Bilirubin Negative, Urine Urobilinogen 0.2, Ur Leukocyte Esterase Negative, Urine RBC Occasional, Ur Squamous Epith Cells Occasional, Urine Bacteria None Assessment and Plan *Assessment and plan (1) Acute cholecystitis: Status: Acute Category: Medical Code(s): K81.0 - Acute cholecystitis Plan Consistent with acute cholecystitis. Initial plan would be for admission with IV antibiotics. Likely needs cardiology risk assessment. Correction of electrolyte derangement. Allow anticoagulation to correct. Interval cholecystectomy once deemed feasible and appropriate.
--- NOTE | 2025-06-01 18:13 | PC.NURSE ---
Dr. Wen at BS for pt eval
--- NOTE | 2025-06-01 18:16 | PC.NURSE ---
report given to DEIDRE Mathis for room 204
[2025-06-01] MEDS: POLYETHYLENE GLYCOL 3350 17 GM PACKET PO (18:40)
[2025-06-01 20:55] LABS: POC Glucose,Bedside 66 gm/dL (70-110)
[2025-06-01] MEDS: DEXTROSE 50% 50ML SYRINGE (CRASH CART) 50 ML IVP (22:38)
[2025-06-01 23:56] LABS: POC Glucose,Bedside 79 gm/dL (70-110)
[2025-06-02] VITALS (25 sets, daily range): BP systolic 100–154; BP diastolic 56–93; PULSE 98–115; RESP 15–21; TEMP 36.4–43; O2SAT 91–98; BMI 32.3
[2025-06-02] MEDS: PIPERACILLIN/TAZO 4.5 GM in 0.9 % SODIUM CHLORIDE 100 ML IV ×3 (01:30→17:12)
[2025-06-02 02:51] LABS: POC Glucose,Bedside 54 gm/dL (70-110)
[2025-06-02] MEDS: DEXTROSE 50% 50ML SYRINGE (CRASH CART) 50 ML IVP ×2 (04:15→05:25)
--- NOTE | 2025-06-02 04:29 | ECG_ITS ---
APPROVED REPORT Exam: Resting ECG HR:104 bpm ECG Measurements Heart Rate 104 AXES QRSd 152 QRS -76 QT 382 T 51 QTc 443 Conclusion ATRIAL FIBRILLATION WITH RAPID VENTRICULAR RESPONSE LEFT AXIS DEVIATION [QRS AXIS < -30] RIGHT BUNDLE BRANCH BLOCK [120+ ms QRS DURATION, UPRIGHT V1, 40+ ms S IN I/aVL/V4/V5/V6] ABNORMAL ECG UNCONFIRMED REPORT Electronically signed by : Jeremie Schneider MD 06/02/2025 08:51:22
[2025-06-02 04:42] LABS: Hematocrit 40.9 % (42.0-52.0); Hemoglobin 13.6 g/dL (14.1-18.0); Immature Granulocytes % 0.5 %; Mean Corpuscular HGB Conc 33.3 g/dL (31.8-35.4); Mean Corpuscular Hemoglobin 30.4 pg (27.0-31.2); Mean Corpuscular Volume 91.3 fl (80-94); Nucleated Red Blood Cells % 0 %; Platelet Count 139 K/mm3 (142-424); Red Blood Count 4.48 M/mm3 (4.60-6.20); Red Cell Distribution Width-SD 46.8 fL; White Blood Count 17.4 K/mm3 (4.8-10.8)
[2025-06-02 04:45] LABS: Glucose,Fasting 36 mg/dl (74-100)
[2025-06-02 05:05] LABS: Alanine Aminotransferase 24 U/L (12-78); Albumin Level 3.4 g/dl (3.5-5.0); Albumin/Globulin Ratio 1.6 (1.1-1.8); Alkaline Phosphatase 49 U/L (38-126); Anion Gap 12.8 mEq/L (5-15); Aspartate Amino Transferase 38 U/L (17-59); Bilirubin,Total 1.9 mg/dl (0.2-1.3); Blood Urea Nitrogen 20 mg/dl (9-20); Calcium 8.5 mg/dl (8.4-10.2); Carbon Dioxide 29 mmol/L (22.0-30.0); Chloride 97 mmol/L (98-107); Creatinine Clearance Estimated 71 mL/min (50-200); Creatinine,Serum 1.10 mg/dl (0.66-1.25); Estimated Glomerular Filt Rate 63 ml/min (>60); GFR (African American) 77 ML/MIN (>60); Globulin 2.1 g/dL (1.3-3.2); Magnesium 1.2 mg/dl (1.6-2.3); Potassium 3.8 mmoL/L (3.5-5.1); Sodium 135 mmol/L (136-145); Total Protein,Serum 5.5 g/dl (6.3-8.2)
[2025-06-02 05:08] LABS: RBC Morphology Normal; Total Cells Counted 100
[2025-06-02 05:16] LABS: Glucose 35 mg/dl (74-100)
--- NOTE | 2025-06-02 05:27 | CT_ITS ---
PROCEDURE INFORMATION: Exam: CT Abdomen And Pelvis Without Contrast Exam date and time: 06/02/2025 5:49 AM Age: 85 years old Clinical indication: Abdominal pain; Additional info: Worsening abd pain TECHNIQUE: Imaging protocol: Computed tomography of the abdomen and pelvis without contrast. Radiation optimization: All CT scans at this facility use at least one of these dose optimization techniques: automated exposure control; mA and/or kV adjustment per patient size (includes targeted exams where dose is matched to clinical indication); or iterative reconstruction. COMPARISON: CT ABDOMEN PELVIS W CON 06/01/2025 3:09 PM FINDINGS: Lungs: There are new infiltrates versus atelectasis at the lung bases. Heart: Borderline cardiomegaly. No pericardial effusion. There is calcified coronary artery disease. Liver: Hepatomegaly. The liver measures about 19.7 cm in craniocaudal dimension. No focal liver lesion identified. Gallbladder and biliary ducts: The gallbladder is distended. There is extensive pericholecystic inflammation and small volume fluid. Although no calcified gallstones are identified. The findings suggest acute cholecystitis. Pancreas: Normal. No ductal dilation. Spleen: The spleen is normal in appearance. Adrenal glands: The adrenal glands are normal in appearance. Kidneys and ureters: There are multiple stable bilateral renal cortical cysts. There is trace residual IV contrast being excreted by each kidney. No evidence of hydronephrosis. There are stable small nonobstructing calculi in the calices of each kidney. There are stable bilateral renal cortical cysts. Stomach and bowel: There are surgical clips adjacent to the gastroesophageal junction. The small bowel loops are not thickened and are nondilated. There is colonic diverticulosis but no evidence of diverticulitis. Appendix: The appendix is not identified, but there are no inflammatory changes in its expected region. Intraperitoneal space: Unremarkable. No free air. No significant fluid collection. Vasculature: Unremarkable. No abdominal aortic aneurysm. Lymph nodes: Unremarkable. No enlarged lymph nodes. Urinary bladder: The urinary bladder is mostly decompressed. There is excreted IV contrast within the urinary bladder. Reproductive: Unremarkable as visualized. Bones/joints: No acute osseous lesions. Previous ORIF of the left hip. Stable multilevel chronic degenerative changes throughout the visualized spine. Soft tissues: Trace gas in the anterior abdominal wall in the right mid abdomen likely secondary to medication injection. IMPRESSION: 1. Acute cholecystitis. 2. New small volume infiltrate versus atelectasis at each lung base. 3. Borderline cardiomegaly. There are coronary artery calcifications. 4. Colonic diverticulosis but no evidence of diverticulitis.
--- NOTE | 2025-06-02 06:20 | PC.NURSE ---
2000- fsbg [facility] gave the pt a starie, he was awake, alert and talking to everyone. tolerating intake well. c/o a little bit of abd pain but pain is mainly in his kneestreated per mar with zofran. 2200- fsbg 54. notified oneal, orders for amp of D5 and started ivmf d5ns @ 100. 2215- fsbg- 79 0406- fsbg LOW, stat blood glucose 36. manual b/p 100/56. notified oneal, orders for another amp of D5. bolus of 500ml ns (pt received with improvement of b/p, orders tro hold on the remainder of bolus) continue ivmf d5ns. new 20g iv placed in lue [id number] 99 0515- fsbg 58, notified oneal. gave another amp of D5. took pt down for ct abd 0556- fsbg 114 b/p 121/54 family at , pt awake and alert. 0642- fsbg 90
[2025-06-02 07:36] LABS: POC Glucose,Bedside 99 gm/dL (70-110)
[2025-06-02 07:36] LABS: POC Glucose,Bedside 114 gm/dL (70-110)
[2025-06-02 07:36] LABS: POC Glucose,Bedside 58 gm/dL (70-110)
[2025-06-02 07:36] LABS: POC Glucose,Bedside 90 gm/dL (70-110)
[2025-06-02] MEDS: ONDANSETRON 4MG/2ML VIAL 4 MG IV ×2 (08:33→15:48)
[2025-06-02] MEDS: HYDROCODONE/APAP 5/325 MG TABLET 1 TAB PO (08:33)
[2025-06-02] MEDS: MAGNESIUM SULFATE IN WATER 2 GM/50 ML PIGGYBACK IV ×3 (08:33→11:22)
[2025-06-02 08:53] LABS: POC Glucose,Bedside 74 gm/dL (70-110)
--- NOTE | 2025-06-02 09:22 | HMH.PHAINT1 ---
Pharmacy Intervention Comments: MEDICATION RECONCILIATION COMPLETED ON PATIENT USING EXTERNAL FILL HISTORY FROM PHARMACY. -ANTONIO HUGGINS, TONOD
--- NOTE | 2025-06-02 09:34 | PC.NURSE ---
Patient leaving med/surg floor via bed with staff at this time to go to ICU.
--- NOTE | 2025-06-02 10:01 | EXP.ACUTE.PN ---
Subjective *Date: 06/02/25 *Time: 11:56 Interval history: On interview this morning, patient complaining more of his knee pain than anything else but then when asked about his belly he confirms that it is quite tender. Has positive rebound with palpation in left lower quadrant. Developed white count overnight. Remains tachycardic. Meeting sepsis criteria this morning. Continues on D5 drip for his hypoglycemia. On 2 L oxygen. Blood pressure stable at this time, afebrile. Multiple family at bedside during discussion of plan and prognosis. Medical Exam Vital signs and Labs for Last 24 Hours: Vital Signs Temp Pulse Pulse Resp BP BP Pulse Ox 06/02/25 08:00 104 H 16 120/56 L 97 06/02/25 06:58 06/02/25 05:00 06/02/25 04:00 99.6 F 98 H 18 100/56 L 91 L 06/02/25 03:00 06/02/25 01:00 06/02/25 00:00 99.2 F 98 H 19 114/57 L 94 L 06/01/25 23:00 06/01/25 21:00 06/01/25 20:00 06/01/25 20:00 98.7 F 97 H 18 128/62 95 06/01/25 19:00 06/01/25 18:44 98.8 F 108 H 18 127/68 97 06/01/25 18:20 98.9 F 110 H 18 145/75 H 06/01/25 18:10 06/01/25 18:00 100 H 145/75 H 91 L 06/01/25 17:30 99 H 139/74 91 L 06/01/25 17:01 104 H 145/71 H 92 L 06/01/25 16:30 100 H 148/73 H 91 L 06/01/25 16:00 99 H 137/81 91 L 06/01/25 15:30 99 H 147/77 H 99 06/01/25 15:00 104 H 152/77 H 98 06/01/25 14:30 107 H 143/71 H 97 06/01/25 14:00 104 H 132/71 93 L 06/01/25 13:51 107 H 139/79 91 L 06/01/25 13:43 98.3 F 103 H 18 108/81 L 93 L O2 Del Method O2 Flow Rate 06/02/25 08:00 Nasal Cannula 06/02/25 06:58 Nasal Cannula 2 06/02/25 05:00 Nasal Cannula 2 06/02/25 04:00 Nasal Cannula 2.0 06/02/25 03:00 Nasal Cannula 2 06/02/25 01:00 Nasal Cannula 2 06/02/25 00:00 Nasal Cannula 2.0 06/01/25 23:00 Nasal Cannula 2 06/01/25 21:00 Nasal Cannula 2 06/01/25 20:00 Nasal Cannula 2 06/01/25 20:00 Nasal Cannula 2 06/01/25 19:00 Nasal Cannula 2 06/01/25 18:44 Nasal Cannula 2 06/01/25 18:20 Nasal Cannula 2 06/01/25 18:10 Nasal Cannula 2 06/01/25 18:00 06/01/25 17:30 06/01/25 17:01 Room Air 06/01/25 16:30 Room Air 06/01/25 16:00 Room Air 06/01/25 15:30 Nasal Cannula 3 06/01/25 15:00 Room Air 06/01/25 14:30 Room Air 06/01/25 14:00 06/01/25 13:51 06/01/25 13:43 Room Air Intake and Output 06/01/25 06/02/25 06/02/25 23:59 07:59 15:59 Intake Total 1150 / 2150 100 / 100 Output Total 200 / 200 250 / 250 Balance 950 / 1950 -150 / -150 Intake: Intake, Total IV Amount 1150 / 2150 100 / 100 Lactated Ringers 1000ML 1,000 1000 / 1000 ml @ 999 mls/hr IV .Q1H1M ONE Rx#:[id number] Magnesium Sulfate in Water 2 gm 50 / 50 In 50 ml @ 50 mls/hr IV ONCE ONE Rx#:[id number] Piperacillin/Tazo 4.5 gm In 0.9 100 / 100 % Sodium Chloride 100 ml @ 200 mls/hr IV ONCE ONE Rx#: [id number] Piperacillin/Tazo 4.5 gm In 0.9 100 / 100 % Sodium Chloride 100 ml @ 200 mls/hr IV Q8H [facility] Rx#: [id number] Output: Output, Urine Amount 200 / 200 250 / 250 Other: Number of Unmeasured Voids 0 1 Weight 104.78 kg 104.78 kg Patient Weight 06/02/25 23:59 Weight 104.78 kg Laboratory Results - last 24 hr 06/01/25 14:10: WBC 9.8, RBC 4.79, Hgb 14.2, Hct 43.4, MCV 90.6, MCH 29.6, MCHC 32.7, RDW 13.6, Plt Count 150, MPV 9.4, Neut % (Auto) 82.9 H, Lymph % (Auto) 9.1 L, [place] % (Auto) 7.4, Eos % (Auto) 0.1, Baso % (Auto) 0.1, Neut # (Auto) 8.2 H, Lymph # (Auto) 0.9, [place] # (Auto) 0.7, Eos # (Auto) 0.0, Baso # (Auto) 0.0, VBG pH 7.39, VBG pCO2 45.6, VBG pO2 56.3 H, VBG HCO3 26.7, VBG Total CO2 28.1 H, VBG O2 Saturation 88.2 H, VBG Base Excess 1.6, VBG Lactic Acid 1.7, Sodium 135 L, Potassium 3.9, Chloride 95 L, Carbon Dioxide 32 H, Anion Gap 11.9, BUN 19, Creatinine 1.00, Estimated Creat Clear 78, Estimated GFR 71, Est GFR ( Amer) 86, Glucose 171 H, Calcium 9.0, Magnesium 1.0 L, Total Bilirubin 1.2, AST 29, ALT 19, Alkaline Phosphatase 60, Total Protein 7.1, Albumin 4.3, Globulin 2.8, Albumin/Globulin Ratio 1.5, Lipase 70 06/01/25 15:23: Urine Color Yellow, Urine Appearance Clear, Urine pH 7.0, Ur Specific [place] 1.010, Urine Protein Negative, Urine Glucose (UA) Negative, Urine Ketones Negative, Urine Blood Negative, Urine Nitrate Negative, Urine Bilirubin Negative, Urine Urobilinogen 0.2, Ur Leukocyte Esterase Negative, Urine RBC Occasional, Ur Squamous Epith Cells Occasional, Urine Bacteria None 06/01/25 20:12: POC Glucose 66 L 06/01/25 22:05: POC Glucose 54 L 06/01/25 23:43: POC Glucose 79 06/02/25 04:25: WBC 17.4 H D, RBC 4.48 L, Hgb 13.6 L, Hct 40.9 L, MCV 91.3, MCH 30.4, MCHC 33.3, RDW 13.9, Plt Count 139 L, MPV 9.5, Neut % (Auto) 75.8, Lymph % (Auto) 13.4, [place] % (Auto) 9.9 H, Eos % (Auto) 0.1, Baso % (Auto) 0.3, Neut # (Auto) 13.2 H, Lymph # (Auto) 2.3, [place] # (Auto) 1.7 H, Eos # (Auto) 0.0, Baso # (Auto) 0.1, Total Counted 100, Neutrophils % (Manual) 78 H, Lymphocytes % (Manual) 10, Monocytes % (Manual) 12 H, Platelet Estimate Normal, RBC Morphology Normal, Sodium 135 L, Potassium 3.8, Chloride 97 L, Carbon Dioxide 29, Anion Gap 12.8, BUN 20, Creatinine 1.10, Estimated Creat Clear 71, Estimated GFR 63, Est GFR ( Amer) 77, Glucose 35 L* D, Fasting Glucose 36 L*, Lactate 0.9, Calcium 8.5, Magnesium 1.2 L D, Total Bilirubin 1.9 H, AST 38 D, ALT 24 D, Alkaline Phosphatase 49, Total Protein 5.5 L, Albumin 3.4 L D, Globulin 2.1, Albumin/Globulin Ratio 1.6 06/02/25 04:46: POC Glucose 99 06/02/25 05:15: POC Glucose 58 L 06/02/25 05:56: POC Glucose 114 H 06/02/25 06:42: POC Glucose 90 06/02/25 08:45: POC Glucose 74 06/02/25 08:58: Crossmatch (AHG) See Detail I & O for Labs for Last 24 Hours: Intake & Output 05/30/25 05/31/25 06/01/25 06/02/25 23:59 23:59 23:59 23:59 Intake Total 2150 / 2150 100 / 100 Output Total 200 / 200 250 / 250 Balance 1949 / 1949 -150 / -150 Weight 104.78 kg 104.78 kg Constitutional: Present moderate distress, obese, chronically ill appearing and cooperative Head: Present atraumatic and normocephalic Respiratory: Present normal respiratory effort; Absent rhonchi, wheezes or crackles Cardiac: Present Regular Rhythm and Tachycardia GI: Present soft, distention, tenderness (Diffuse but worse in right upper quadrant.), guarding, rebound and diminished bowel sounds Extremities: Present full ROM; Absent normal inspection Skin: Present intact; Absent erythema Neuro: Present Grossly Intact, alert, awake and moves all extremities Comment:: Oriented to self and place, at baseline per family Assessment and Plan *Assessment and plan (1) Sepsis: Status: Acute Qualifiers: Sepsis acute organ dysfunction status: without acute organ dysfunction Category: Medical Code(s): A41.9 - Sepsis, unspecified organism (2) Acute cholecystitis: Status: Acute Category: Medical Code(s): K81.0 - Acute cholecystitis (3) CHF (congestive heart failure): Status: Acute Qualifiers: Heart failure chronicity: chronic Heart failure type: unspecified Qualified Code(s): I50.9 - Heart failure, unspecified Category: Medical Code(s): I50.9 - Heart failure, unspecified (4) Atrial fibrillation: Status: Acute Qualifiers: Atrial fibrillation type: unspecified chronic Qualified Code(s): I48.20 - Chronic atrial fibrillation, unspecified Category: Medical Code(s): I48.91 - Unspecified atrial fibrillation (5) T2DM (type 2 diabetes mellitus): Status: Acute Qualifiers: Diabetes mellitus complication status: without complication Diabetes mellitus snf insulin use: without snf use Qualified Code(s): E11.9 - Type 2 diabetes mellitus without complications Category: Medical Code(s): E11.9 - Type 2 diabetes mellitus without complications (6) Chronic anticoagulation: Status: Acute Category: Medical Code(s): Z79.01 - residential (current) use of anticoagulants (7) Hypomagnesemia: Status: Acute Category: Medical Code(s): E83.42 - Hypomagnesemia Plan After discussion with the ER, the patient was accepted for admission by Dr. Isabel. General surgery was consulted by the ED physician for possible cholecystitis. Plan for them to see in the morning. Patient was started on Zosyn in the ER, we will continue that. He was given IV fluids, morphine, Zofran and magnesium replacement. EMR does show history of congestive heart failure however I cannot find an echocardiogram. He is on Lasix at home and we will continue that. History of atrial fib, has a current rate of 108. He is on Xarelto for chronic anticoagulation. That will be held and he has been started on full dose Lovenox to bridge until surgery. We will provide sliding scale insulin coverage and hold his metformin. Repeat labs in the morning including magnesium level. Will continue replacement as necessary. Sepsis Acute cholecystitis - I believe sepsis was beginning on arrival but just needed time to declare itself. patient's white count was neutrophil predominant, he is tachycardic in the 90s with cholecystitis on CT of the abdomen along with [id number] ultrasound in the ER. White count jumped less than 12 hours after admission to 17 and patient's glucose has been dropping. These are all markers of his sepsis. My opinion this was present on admission. Was initiated on Zosyn on arrival. Continue Zosyn 4.5g q6h. - Obtaining blood cultures today. - Repeat CBC, CMP, magnesium ordered for the morning. Bilirubin increased to 1.9 from 1.1. AST and ALT and alk phos all remain within normal range. -Having hypoglycemia, likely secondary to infection and inflammation. Continue D5 normal saline at 100 cc an hour. Consider amps of D50 if glucose consistently drops below 50 - General Surgery consulted, discussed case this morning, plan to patient for surgery. May necessitate intraoperative cholangiogram. - CT repeat this morning of abdomen per my review showing continued distention of gallbladder, increased Magnus cholecystic fluid and inflammation of gallbladder wall. Consistent with acute cholecystitis. Still a stool burden but negative for diverticulitis. Also found to have cystic kidneys. - Continue morphine 4 mg IV every 4 hours as needed for breakthrough severe pain. Monitor for toxicity. Continue home oxycodone 7.5 mg as needed every 6 hours Coagulopathy secondary to Xarelto - If patient necessitates surgery today, high risk for bleeding. Will type and cross 3 units. Holding Xarelto in anticipation of surgery Diabetes: -Holding insulin as patient is having maddie hypoglycemia at this time likely secondary to infection. Continue fingersticks every 6 hours. Will obtain every hour if glucose below 70. -Reevaluate insulin needs after surgery Repeat 1 continue supplemental oxygen as needed. Currently on 2 L. BPH: Continue finasteride 5 mg daily and tamsulosin 0.4 mg nightly Dementia: Continue memantine 5 mg twice daily Full code Holding anticoagulation N.p.o.
[2025-06-02 10:08] LABS: POC Glucose,Bedside 65 gm/dL (70-110)
[2025-06-02 10:29] LABS: POC Glucose,Bedside 73 gm/dL (70-110)
--- NOTE | 2025-06-02 10:35 | PC.NURSE ---
Dr. Dempsey in the unit at this time to see patient
--- NOTE | 2025-06-02 10:36 | PC.NURSE ---
0935 patient arrived to unit via stretcher
--- NOTE | 2025-06-02 10:37 | PC.NURSE ---
when patient arrived to the unit patient was clammy. Patient blood sugar was checked at 0942 and it was 65. Call was placed to Dr Isabel. He came over and seen the patient. Per Dr Isabel patient looks the same as when he was on med surge before moving over to the icu. Dr. Isabel advised to recheck sugar in about 30 mins and if still low to give amp of d50. Patient glucose was rechecked at 1022 and it is now 73
[2025-06-02 10:53] LABS: Magnesium 1.8 mg/dl (1.6-2.3)
--- NOTE | 2025-06-02 11:02 | PC.NURSE ---
Lab called at 1030 to let staff know that the 3 units of blood that was ordered is ready but is on hold per Dr. Isabel
--- NOTE | 2025-06-02 11:15 | PC.NURSE ---
signed consent for patient to proceed with surgery and also to receive blood if needed after the procedure. signs all documents for patient due to patient having dementia.
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
--- NOTE | 2025-06-02 11:58 | PC.NURSE ---
Patient going down for surgery at this time
[2025-06-02] MEDS: BUPIVACAINE 0.25% 30ML VIAL 75 MG (12:26)
[2025-06-02] MEDS: SODIUM CHLORIDE IRRIG SOLUTION 3,000 ML 200 ML IR (12:51)
--- NOTE | 2025-06-02 14:08 | P.PNANES_ITS ---
[facility] Disclaimer: The information contained in this section may have been updated after the patient was seen, as this information can be updated by other users. Medical History (Updated 06/02/25 @ 11:58 by Clemente Isabel MD) Dementia COPD (chronic obstructive pulmonary disease) Abscess of lung Acute diverticulitis Arthritis Diabetes Afib Hypotension Abnormal electrocardiography Dyspnea Surgical History (Updated 06/01/25 @ 20:21 by Radha Tiwari APRN) History of total right knee replacement Family History Other Family history of cancer Social History (Updated 06/01/25 @ 20:21 by Radha Tiwari APRN) Smoking Status: Former smoker smoking status stop date: 25 years ago alcohol intake: former substance use type: denies use current occupational status: disabled Travel in the last 8 weeks?: Inside the [place] household members: spouse and children housing: house Have you lived/traveled outside [place] in past 30 days?: No Contact w/someone who lives/traveled outside [place] past 30 days?: No Exposure to someone with infectious disease in past 14 days?: No Do you have a fever (greater than 100.4 F or 38 C)?: No Have you tested positive for COVID-19?: No Exposed to someone with COVID-19 in past 14 days?: No Do you have a sore throat?: No Do you have a cough?: No Do you have any weakness?: No Do you have any diarrhea?: No Are you experiencing any unusual bleeding?: No Do you have any muscle aches/pain?: No Do you have any abdominal pain?: No Are you experiencing loss of taste or smell?: No [facility] Anesthesia Checklist Patient Identification Patient Identification: Arm Band and Family Structural Data Admitted From: Inpatient Planned Operative Procedure/s: Laparoscopic Cholecystectomy Consent for Planned Operative Procedure(s) Verified: Yes Verified Documents: Surgical Consent and History and Physical NPO Status Verified Time NPO: 00:00 Additional verifications Anesthesia Reactions: No Airway Assessment Mallampati Score:: Class II C-Spine Mobility Assessed: Yes TMJ Mobility Assessed: Yes Dentition: Edentulous Neurological Assessment Level of Consciousness: Awake, Alert and Appropriate Anesthesia Plan Anesthesia Risk discussed: Yes Anesthesia Plan: Verified ASA Class: III Anesthesia Type: General
--- NOTE | 2025-06-02 14:56 | P.OP_ITS ---
Date of procedure: 06/02/25 Pre-op Diagnosis:: Acute cholecystitis Post-op Diagnosis:: Acute calculous cholecystitis, chronic cholecystitis Procedure performed:: Laparoscopic cholecystectomy Surgeon:: Tammie Dempsey MD POWERHOUSE TENDER:: Chinedu Mark Anesthesia: GETDarion Estimated blood loss (mL): 400 Clinical Note:: Mr. Boubacar Baxter is an 85-year-old male who presented with abdominal pain and vomiting. Imaging was concerning for acute cholecystitis. He had taken Xarelto 48 hours ago and the initial plan was for cholecystectomy after he had held Xarelto for 72 hours, but he had poor parameters (increasing abdominal pain, hypoglycemia, hypotension) despite 24 hours of IV Zosyn. The risk of worsening sepsis was significant, and after extensive discussion with the family and the patient, they elected to proceed with higher risk cholecystectomy. Operative findings:: Acute cholecystitis, verging on gangrenous cholecystitis; intense rind of chronic inflammation surrounding the gallbladder. Extensive oozing that improved once the gallbladder was out. Liver bed bleeding was controlled with cautery and Mady. Operative note:: After informed consent was taken the patient was brought to the operating room and laid in the supine position. SCDs were placed. General anesthesia was induced. He had received Zosyn earlier. He did not receive anticoagulation due to therapeutic Xarelto dosing. The abdomen was prepped with ChloraPrep and draped sterilely. The abdomen was entered through an incision in the left mid abdomen using a 5 mm Optiview trocar under direct visualization. The abdomen was insufflated to 16 mmHg. Diagnostic laparoscopy revealed no injury from entrance technique. There were many omental adhesions to the right upper quadrant and upper abdomen. An 11 mm port was placed in the subxiphoid position. Adhesions were taken down with harmonic. Once the omentum was off the peritoneal surface, I was able to place 2 additional 5 mm ports in the right upper quadrant I continued to dissect omentum off the falciform ligament, and the falciform ligament was also taken down to facilitate visualization of the gallbladder. There was some turbid, slightly bile tinged fluid in the right upper quadrant over the liver. This fluid was suctioned and sent for culture. The gallbladder was very large and very thickened, and could not be grasped. Therefore, a cholecystotomy was made with cautery, and the gallbladder was suction. The initial fluid was clear bile, consistent with hydrops, but the fluid debris down was ramirez yellow. There was a thick rind all around the gallbladder, and this required dissection to adequately see structures. The gallbladder was grasped and retracted over the liver. The rind was dissected off. Total dissection of adhesions and rind took at least 45 minutes to an hour. This dissection was notable for friability, constant oozing, and clear edema fluid issuing from all tissues. After extensive dissection, the cystic duct and artery started to take shape. There was a lot of chronic and acute inflammation this area. Many fibrotic bands were taken down with cautery. Eventually, the cystic duct and artery were skeletonized and the liver was easily seen behind them. Thus, the critical view of safety was obtained. The cystic artery was clipped twice proximally once distally, and divided with scissors. The cystic duct was very thick, but clearly seen going right into the gallbladder, and was clearly the cystic duct. It was also very dilated. A clip was placed proximally, and this did not traverse the duct, due to its large diameter. The cystic duct was opened with a small pass of the scissors, and cholangiogram was attempted. It did not proceed very far, as I was not able to thread the cholangiocatheter down the cystic duct, presumably due to swelling. Catheter was removed. Due to the width of the cystic duct, I was not going to be able to traverse it with the ricardo. I dissected some more rind and adhesions off the cystic duct, and I could see it diving down deeper into the common bile duct. The cystic duct was tied off with an Endoloop. The area was checked for hemostasis and for bile leakage, and there was no bleeding or bile leakage. Attention was turned to dissecting the gallbladder off the liver bed. The gallbladder was dissected off the liver bed with combination of cautery and harmonic scalpel. This dissection was extremely friable, with constant diffuse oozing. The planes were extremely difficult to identify due to acute acute and chronic inflammation. There were several inadvertent cholecystotomies. A few round yellow gallstones fell out, but were promptly retrieved. Finally, the gallbladder was completely removed off the liver bed and placed in an Endo Catch bag. It was removed to the 11 mm port. The gallbladder was sent for permanent section. The abdomen was inspected. Blood was suctioned from over the liver. Most of the bleeding on the liver bed had actually had once the infected organ was out. The right upper quadrant was copiously irrigated and suctioned. There was no bilious drainage. The gallbladder bed was extensively cauterized, and then Mady was placed, with good hemostasis. The area was checked once more, and there was no bleeding or bile leakage. A GRICELDA drain was inserted and brought out through the right lateralmost port site. Its tip was placed over the liver and the right paracolic gutter. It was secured with a 3-0 nylon drain stitch. The 11 mm port site fascia was closed with 2 interrupted 0 Vicryl transfascial sutures using a Granee needle. The abdomen was desufflated and the ports were removed. All skin incisions were closed with ricardo. A drain dressing and other sterile dressings were placed. The patient was taken to recovery in good condition, having tolerated the procedure well. Condition: stable Disposition: PACU Specimens:: Gallbladder, peritoneal fluid culture Complications:: None immediate
--- NOTE | 2025-06-02 15:06 | EXP.ANES.I ---
[facility] Anesthesia Record Part I Anesthesia Record I Intake, IV Amount: 1,600 Hydration: Adequate Estimated blood loss (mL): 400 Urine output (mL): 0 Blood Products used (#): none Blood Pressure: 139/78 SaO2: 93 Pulse Rate: 102 Airway Patency: Patent Respiratory Rate: 16 Temperature: 97.5 F Patient is:: Drowsy, Nasal O2 and Stable Stable to PACU at:: 15:00
[2025-06-02 15:10] LABS: POC Glucose,Bedside 72 gm/dL (70-110)
[2025-06-02 15:29] LABS: POC Glucose,Bedside 87 gm/dL (70-110)
--- NOTE | 2025-06-02 15:31 | PC.NURSE ---
received report from Annetta on patient from pacu.
--- NOTE | 2025-06-02 15:40 | PC.NURSE ---
Patient arrived back to the icu from surgery at 1540 via stretcher.
[2025-06-02] MEDS: MORPHINE 4MG/ML SYRINGE 4 MG IV ×2 (15:49→23:00)
[2025-06-02 16:27] LABS: POC Glucose,Bedside 110 gm/dL (70-110)
[2025-06-02 17:11] LABS: POC Glucose,Bedside 102 gm/dL (70-110)
--- NOTE | 2025-06-02 17:49 | PC.NURSE ---
Per Dr. Isabel patient can have clear liquid diet but at this time only wants small sips of water and ice chips and kept to a minimum per Dr. Dempsey
[2025-06-02 18:11] LABS: Albumin Level 3.3 g/dl (3.5-5.0); Chloride 96 mmol/L (98-107); Potassium 3.9 mmoL/L (3.5-5.1); Sodium 132 mmol/L (136-145)
[2025-06-02 18:14] LABS: Alanine Aminotransferase 55 U/L (12-78); Albumin/Globulin Ratio 1.3 (1.1-1.8); Alkaline Phosphatase 54 U/L (38-126); Anion Gap 10.9 mEq/L (5-15); Aspartate Amino Transferase 79 U/L (17-59); Bilirubin,Total 1.9 mg/dl (0.2-1.3); Blood Urea Nitrogen 19 mg/dl (9-20); Carbon Dioxide 29 mmol/L (22.0-30.0); Creatinine Clearance Estimated 71 mL/min (50-200); Creatinine,Serum 1.10 mg/dl (0.66-1.25); Estimated Glomerular Filt Rate 63 ml/min (>60); GFR (African American) 77 ML/MIN (>60); Globulin 2.6 g/dL (1.3-3.2); Total Protein,Serum 5.9 g/dl (6.3-8.2)
[2025-06-02 18:15] LABS: Calcium 7.8 mg/dl (8.4-10.2); Glucose 118 mg/dl (74-100)
[2025-06-02 18:19] LABS: Hematocrit 39.9 % (42.0-52.0); Hemoglobin 12.9 g/dL (14.1-18.0)
[2025-06-02 18:20] LABS: POC Glucose,Bedside 108 gm/dL (70-110)
--- NOTE | 2025-06-02 18:49 | PC.NURSE ---
Called MD Dr. Isabel about getting something for patient due to nausea. Patient had zofran at 1538 and its ordered every 8 hours he is going to change it to every 6 hours and order something else for nausea right now
[2025-06-02] MEDS: SODIUM CHLORIDE 0.9% 25ML BAG 25 ML IV (18:56)
[2025-06-02] MEDS: PROMETHAZINE HCL 25MG/ML 1ML VIAL 25 MG IV (18:56)
[2025-06-02] MEDS: TAMSULOSIN 0.4MG CAPSULE 0.4 MG PO (20:48)
[2025-06-02] MEDS: MEMANTINE 10MG TABLET 5 MG PO (20:48)
[2025-06-02] MEDS: GABAPENTIN 400MG CAPSULE 400 MG PO (20:48)
--- NOTE | 2025-06-02 22:16 | PC.NURSE ---
Jimmy JIANG and I went in at 7p to assess GRICELDA drain and incision sites and pt was cooperative and pleasant. I went in at 750 to assess pt and hook SCDS up and pt became aggravated that Odalys, nursing associate, and I had to move his legs to re-wrap the scds. I asked pt how he uses the bathroom and he stated, I don't. I asked pt his name and he told me he didn't have one. He started talking about calling the state police and other random comments. He said he didn't know where he was at at this time. I called Darlene the daughter and she said it is normal for him to become confused at night. When I went back in to give pt his night meds he refused, I tried to bladder scan him because he has only had 725 mL out since 0000 and he refused. On the monitor it appears that he was in a-flutter and I tried to get an EKG and he refused. Al JIANG tried to go in with pt to discuss with the pt we were only trying to help him and pt covered his face and told us to get out he wasn't doing anything that we asked of him. I notified hospitalist and she said, give pain meds and assess him after pain meds were given. Pt refused morphine and hospitalist came to discuss pts care with him and he would not cooperate with hospitalist. Hospitalist contacted Darlene (daughter) while pts granddaughter was walking through the door. Hospitalist discussed cared with granddaughter Dunia. Pts granddaughter Dunia is at bedside now with pt. All times are approximated.
[2025-06-03] VITALS (10 sets, daily range): BP systolic 96–131; BP diastolic 57–72; PULSE 90–120; RESP 14–25; TEMP 36.8–37.2; O2SAT 91–95; BMI 33.7
[2025-06-03 00:08] LABS: POC Glucose,Bedside 114 gm/dL (70-110)
[2025-06-03] MEDS: PIPERACILLIN/TAZO 4.5 GM in 0.9 % SODIUM CHLORIDE 100 ML IV ×3 (02:00→17:00)
[2025-06-03] MEDS: ONDANSETRON 4MG/2ML VIAL 4 MG IV (02:16)
[2025-06-03 05:50] LABS: POC Glucose,Bedside 121 gm/dL (70-110)
[2025-06-03 05:50] LABS: POC Glucose,Bedside 115 gm/dL (70-110)
[2025-06-03 06:04] LABS: Albumin Level 3.0 g/dl (3.5-5.0); Chloride 96 mmol/L (98-107); Potassium 4.1 mmoL/L (3.5-5.1); Sodium 132 mmol/L (136-145)
[2025-06-03 06:07] LABS: Alanine Aminotransferase 48 U/L (12-78); Albumin/Globulin Ratio 1.3 (1.1-1.8); Alkaline Phosphatase 52 U/L (38-126); Anion Gap 11.1 mEq/L (5-15); Aspartate Amino Transferase 59 U/L (17-59); Bilirubin,Total 1.6 mg/dl (0.2-1.3); Blood Urea Nitrogen 20 mg/dl (9-20); Calcium 7.9 mg/dl (8.4-10.2); Carbon Dioxide 29 mmol/L (22.0-30.0); Creatinine Clearance Estimated 75 mL/min (50-200); Creatinine,Serum 1.10 mg/dl (0.66-1.25); Estimated Glomerular Filt Rate 63 ml/min (>60); GFR (African American) 77 ML/MIN (>60); Globulin 2.4 g/dL (1.3-3.2); Glucose 114 mg/dl (74-100); Magnesium 1.8 mg/dl (1.6-2.3); Total Protein,Serum 5.4 g/dl (6.3-8.2)
[2025-06-03 06:09] LABS: Hematocrit 38.2 % (42.0-52.0); Hemoglobin 12.5 g/dL (14.1-18.0); Immature Granulocytes % 0.7 %; Mean Corpuscular HGB Conc 32.7 g/dL (31.8-35.4); Mean Corpuscular Hemoglobin 30.1 pg (27.0-31.2); Mean Corpuscular Volume 92.0 fl (80-94); Nucleated Red Blood Cells % 0 %; Platelet Count 115 K/mm3 (142-424); Red Blood Count 4.15 M/mm3 (4.60-6.20); Red Cell Distribution Width-SD 48.1 fL; White Blood Count 12.5 K/mm3 (4.8-10.8)
[2025-06-03] MEDS: OXYCODONE 7.5MG W/APAP 325MG TABLET 1 EACH PO ×3 (07:12→16:52)
[2025-06-03] MEDS: POLYETHYLENE GLYCOL 3350 17 GM PACKET PO ×2 (09:03→20:02)
[2025-06-03] MEDS: MEMANTINE 10MG TABLET 5 MG PO ×2 (09:03→20:01)
[2025-06-03] MEDS: GABAPENTIN 400MG CAPSULE 400 MG PO ×2 (09:03→20:01)
[2025-06-03] MEDS: FINASTERIDE 5MG TABLET 5 MG PO (09:03)
--- NOTE | 2025-06-03 11:10 | PC.NURSE ---
Dr. Dempsey at bedside to follow up with patient
--- NOTE | 2025-06-03 11:18 | P.PN_ITS ---
Subjective Narrative: Much improved today. No further hypoglycemia, normotensive. Some surgical pain, but abdomen feels much better overall. Main complaint is constipation. Exam Data for Last 24 hours Vital signs and Labs for Last 24 Hours: Temp Pulse Resp BP Pulse Ox O2 Del Method O2 Flow Rate 98.3 F 99 H 18 131/70 92 L Nasal Cannula 2 06/03/25 08:00 06/03/25 09:00 06/03/25 09:00 06/03/25 09:00 06/03/25 09:00 06/03/25 11:00 06/03/25 11:00 Laboratory Results - last 24 hr 06/02/25 13:34: POC Glucose 72 06/02/25 15:22: POC Glucose 87 06/02/25 16:19: POC Glucose 110 06/02/25 17:02: POC Glucose 102 06/02/25 17:55: Hgb 12.9 L, Hct 39.9 L, Sodium 132 L, Potassium 3.9, Chloride 96 L, Carbon Dioxide 29, Anion Gap 10.9, BUN 19, Creatinine 1.10, Estimated Creat Clear 71, Estimated GFR 63, Est GFR ( Amer) 77, Glucose 118 H D, Calcium 7.8 L, Total Bilirubin 1.9 H, AST 79 H D, ALT 55 D, Alkaline Phosphatase 54, Total Protein 5.9 L, Albumin 3.3 L, Globulin 2.6, Albumin/Globulin Ratio 1.3 06/02/25 18:10: POC Glucose 108 06/03/25 00:00: POC Glucose 114 H 06/03/25 04:32: POC Glucose 121 H 06/03/25 05:38: WBC 12.5 H D, RBC 4.15 L, Hgb 12.5 L, Hct 38.2 L, MCV 92.0, MCH 30.1, MCHC 32.7, RDW 14.3, Plt Count 115 L, MPV 10.2, Neut % (Auto) 77.5, Lymph % (Auto) 14.0, [place] % (Auto) 7.6, Eos % (Auto) 0.0 L, Baso % (Auto) 0.2, Neut # (Auto) 9.7 H, Lymph # (Auto) 1.8, [place] # (Auto) 1.0, Eos # (Auto) 0.0, Baso # (Auto) 0.0, Sodium 132 L, Potassium 4.1, Chloride 96 L, Carbon Dioxide 29, Anion Gap 11.1, BUN 20, Creatinine 1.10, Estimated Creat Clear 75, Estimated GFR 63, Est GFR ( Amer) 77, Glucose 114 H, Calcium 7.9 L, Magnesium 1.8, Total Bilirubin 1.6 H, AST 59 D, ALT 48, Alkaline Phosphatase 52, Total Protein 5.4 L , Albumin 3.0 L, Globulin 2.4, Albumin/Globulin Ratio 1.3 06/03/25 05:41: POC Glucose 115 H I & O for Last 24 hours: Intake & Output 05/31/25 06/01/25 06/02/25 06/03/25 23:59 23:59 23:59 23:59 Intake Total 2150 / 2150 2967.500 / 3322.500 997 / 997 Output Total 200 / 200 1095 / 1145 780 / 780 Balance 1950 / 1950 1872.500 / 2177.500 217 / 217 Weight 231 lb 0.006 oz 231 lb 240 lb 15.444 oz Microbiology Reports for the Last 24 Hours: Microbiology 06/02/25 10:15 Blood Blood Culture - Preliminary NO GROWTH AFTER 24 HOURS 06/02/25 10:20 Blood Blood Culture - Preliminary NO GROWTH AFTER 24 HOURS Constitutional Constitutional: no acute distress Comments: up on bedside commode *Routine Abdominal Exam Abdominal: Present soft; Absent tenderness or distended Comments: dressings are clean and dry. GRICELDA drain with old blood/thin brownish drainage. Not bilious *Routine Neurological Exam Comments: pleasantly demented Progress Note: A&P Assessment and plan (1) Sepsis: Status: Acute (2) Acute cholecystitis: Problem details: Doing well POD#1 s/p technically challenging lap makenzie. Tbili slowly decr easing, 1.6 today. LFts normal. Drain is likely old thin blood. Monitor for bilious drainage. Ok to advance diet. Suppository PRN, colace bid, miralax bid for constipation. Status: Acute (3) CHF (congestive heart failure): Status: Acute (4) Atrial fibrillation: Status: Acute (5) T2DM (type 2 diabetes mellitus): Status: Acute (6) Chronic anticoagulation: Status: Acute (7) Hypomagnesemia: Status: Acute
[2025-06-03 11:27] LABS: POC Glucose,Bedside 196 gm/dL (70-110)
[2025-06-03] MEDS: humaLOG 100 UNITS/ML 10ML VIAL (SSI) SUBCUT ×2 (11:41→20:01)
[2025-06-03] MEDS: DOCUSATE SODIUM 250MG CAPSULE 250 MG PO ×2 (11:42→20:01)
--- NOTE | 2025-06-03 13:10 | PC.NURSE ---
Patient left icu via wheel chair going to [facility] surge room 205.
--- NOTE | 2025-06-03 13:12 | PC.NURSE ---
Called report to Delfina at 1300
--- NOTE | 2025-06-03 14:41 | PC.NURSE ---
patient is a/ox3 at this time with periods of acute confusion. remains on room air. audible wheezes heard on exertion. D5 still on hold per orders. patient has his home walker at bedside. bed alarm in place. family currently at bedside. currently sitting up in the chair talking with family. GRICELDA drain in place, no output noted at this time, ABD DSGs in place, LUQ DSG has a small amount of serosanguineous fluid noted but not saturated, remaining ABD DSGs C/D/I. no further requests at this time.
[2025-06-03 17:18] LABS: POC Glucose,Bedside 137 gm/dL (70-110)
[2025-06-03] MEDS: MORPHINE 4MG/ML SYRINGE 4 MG IV (18:33)
--- NOTE | 2025-06-03 18:42 | PC.NURSE ---
aware of HR reaching 130s-140s
[2025-06-03 19:58] LABS: POC Glucose,Bedside 268 gm/dL (70-110)
[2025-06-03] MEDS: TAMSULOSIN 0.4MG CAPSULE 0.4 MG PO (20:01)
[2025-06-03] MEDS: PATIENT'S OWN HOME MEDICATION (Quetiapine 50 mg tablet) 50 EACH PO (20:02)
--- NOTE | 2025-06-03 20:03 | P.PN_ITS ---
Subjective *Date: 06/03/25 *Time: 22:29 Interval history: Patient was restless overnight. Vitals more or less remained stable however. No significant output in GRICELDA drain. Tolerating 2 L nasal cannula oxygen. No nausea or vomiting. Passing gas. Afebrile. Medical Exam Vital signs and Labs for Last 24 Hours: Vital Signs Temp Pulse Pulse Resp BP BP Pulse Ox 06/03/25 18:43 06/03/25 17:00 06/03/25 16:00 120 H 06/03/25 15:55 98.4 F 113 H 25 H 106/67 L 95 06/03/25 14:50 06/03/25 13:00 06/03/25 11:58 98.4 F 104 H 18 96/59 L 94 L 06/03/25 11:00 06/03/25 09:00 99 H 18 131/70 92 L 06/03/25 09:00 06/03/25 08:00 98.3 F 93 H 16 121/64 92 L 06/03/25 08:00 94 L 06/03/25 08:00 90 06/03/25 07:00 06/03/25 06:01 102 H 15 130/68 94 L 06/03/25 04:58 06/03/25 04:00 98.3 F 108 H 25 H 118/57 L 91 L 06/03/25 04:00 102 H 06/03/25 03:00 06/03/25 02:00 95 06/03/25 02:00 109 H 17 128/67 95 06/03/25 01:00 06/03/25 00:00 131/72 06/03/25 00:00 98.8 F 111 H 18 131/72 95 06/03/25 00:00 108 H 06/02/25 23:04 16 06/02/25 23:00 06/02/25 21:00 O2 Del Method O2 Flow Rate 06/03/25 18:43 Room Air 06/03/25 17:00 Room Air 06/03/25 16:00 06/03/25 15:55 Room Air 06/03/25 14:50 Room Air 06/03/25 13:00 Room Air 06/03/25 11:58 Room Air 06/03/25 11:00 Nasal Cannula 2 06/03/25 09:00 Nasal Cannula 2 06/03/25 09:00 Nasal Cannula 2 06/03/25 08:00 Nasal Cannula 2 06/03/25 08:00 Nasal Cannula 2 06/03/25 08:00 06/03/25 07:00 Nasal Cannula 2 06/03/25 06:01 Nasal Cannula 2 06/03/25 04:58 Nasal Cannula 2 06/03/25 04:00 06/03/25 04:00 06/03/25 03:00 Nasal Cannula 2 06/03/25 02:00 Nasal Cannula 2 06/03/25 02:00 Nasal Cannula 2 06/03/25 01:00 Nasal Cannula 2 06/03/25 00:00 06/03/25 00:00 Nasal Cannula 2 06/03/25 00:00 06/02/25 23:04 06/02/25 23:00 Nasal Cannula 2 06/02/25 21:00 Nasal Cannula 2 Intake and Output 06/03/25 06/03/25 06/03/25 07:59 15:59 23:59 Intake Total 455 / 2113 1078 / 2113 580 / 2113 Output Total 380 / 800 420 / 800 0 / 800 Balance 75 / 1313 658 / 1313 580 / 1313 Intake: Intake, Oral Amount 355 / 1813 978 / 1813 480 / 1813 Intake, Total IV Amount 100 / 300 100 / 300 100 / 300 Piperacillin/Tazo 4.5 gm In 0.9 100 / 300 100 / 300 100 / 300 % Sodium Chloride 100 ml @ 200 mls/hr IV Q8H [facility] Rx#:[id number] Output: Output, Urine Amount 300 / 700 400 / 700 0 / 700 Output, Drainage Amount 80 / 100 20 / 100 Right Abdomen 80 / 100 20 / 100 Other: Number of Unmeasured Voids 1 2 Weight 109.3 kg 109.3 kg Patient Weight 06/03/25 23:59 Weight 109.3 kg Laboratory Results - last 24 hr 06/03/25 00:00: POC Glucose 114 H 06/03/25 04:32: POC Glucose 121 H 06/03/25 05:38: WBC 12.5 H D, RBC 4.15 L, Hgb 12.5 L, Hct 38.2 L, MCV 92.0, MCH 30.1, MCHC 32.7, RDW 14.3, Plt Count 115 L, MPV 10.2, Neut % (Auto) 77.5, Lymph % (Auto) 14.0, [place] % (Auto) 7.6, Eos % (Auto) 0.0 L, Baso % (Auto) 0.2, Neut # (Auto) 9.7 H, Lymph # (Auto) 1.8, [place] # (Auto) 1.0, Eos # (Auto) 0.0, Baso # (Auto) 0.0, Sodium 132 L, Potassium 4.1, Chloride 96 L, Carbon Dioxide 29, Anion Gap 11.1, BUN 20, Creatinine 1.10, Estimated Creat Clear 75, Estimated GFR 63, Est GFR ( Amer) 77, Glucose 114 H, Calcium 7.9 L, Magnesium 1.8, Total Bilirubin 1.6 H, AST 59 D, ALT 48, Alkaline Phosphatase 52, Total Protein 5.4 L , Albumin 3.0 L, Globulin 2.4, Albumin/Globulin Ratio 1.3 06/03/25 05:41: POC Glucose 115 H 06/03/25 11:18: POC Glucose 196 H 06/03/25 16:16: POC Glucose 137 H 06/03/25 19:51: POC Glucose 268 H I & O for Labs for Last 24 Hours: Intake & Output 05/31/25 06/01/25 06/02/25 06/03/25 23:59 23:59 23:59 23:59 Intake Total 2150 / 2150 2967.500 / 3322.500 2113 / 2113 Output Total 200 / 200 1095 / 1145 800 / 800 Balance 1950 / 1950 1872.500 / 2177.500 1313 / 1313 Weight 104.78 kg 104.78 kg 109.3 kg Microbiology Reports for the Last 24 Hours: Microbiology 06/02/25 10:15 Blood Blood Culture - Preliminary NO GROWTH AFTER 24 HOURS 06/02/25 10:20 Blood Blood Culture - Preliminary NO GROWTH AFTER 24 HOURS Constitutional: Present no acute distress, obese, chronically ill appearing and cooperative Head: Present atraumatic and normocephalic Respiratory: Present normal respiratory effort; Absent rhonchi, wheezes or crackles Cardiac: Present Regular Rhythm and Tachycardia GI: Present soft, tenderness (Interval improvement after surgery.) and normal bowel sounds; Absent distention, guarding or rebound Comments:: GRICELDA in right upper quadrant with scant bloody discharge. Extremities: Present full ROM; Absent normal inspection Skin: Present intact; Absent erythema Neuro: Present Grossly Intact, alert, awake and moves all extremities Comment:: Oriented to self and place, at baseline per family Assessment and Plan *Assessment and plan (1) Sepsis: Status: Acute Qualifiers: Sepsis acute organ dysfunction status: without acute organ dysfunction Category: Medical Code(s): A41.9 - Sepsis, unspecified organism (2) Acute cholecystitis: Problem Comment: Doing well POD#1 s/p technically challenging lap makenzie. Tbili slowly decreasing, 1.6 today. LFts normal. Drain is likely old thin blood. Monitor for bilious drainage. Ok to advance diet. Suppository PRN, colace bid, miralax bid for constipation. Status: Acute Category: Medical Code(s): K81.0 - Acute cholecystitis (3) CHF (congestive heart failure): Status: Acute Qualifiers: Heart failure chronicity: chronic Heart failure type: unspecified Qualified Code(s): I50.9 - Heart failure, unspecified Category: Medical Code(s): I50.9 - Heart failure, unspecified (4) Atrial fibrillation: Status: Acute Qualifiers: Atrial fibrillation type: unspecified chronic Qualified Code(s): I48.20 - Chronic atrial fibrillation, unspecified Category: Medical Code(s): I48.91 - Unspecified atrial fibrillation (5) T2DM (type 2 diabetes mellitus): Status: Acute Qualifiers: Diabetes mellitus complication status: without complication Diabetes mellitus termite exterminator helper insulin use: without senior care use Qualified Code(s): E11.9 - Type 2 diabetes mellitus without complications Category: Medical Code(s): E11.9 - Type 2 diabetes mellitus without complications (6) Chronic anticoagulation: Status: Acute Category: Medical Code(s): Z79.01 - longterm (current) use of anticoagulants (7) Hypomagnesemia: Status: Acute Category: Medical Code(s): E83.42 - Hypomagnesemia Plan After discussion with the ER, the patient was accepted for admission by Dr. Isabel. General surgery was consulted by the ED physician for possible cholecystitis. Plan for them to see in the morning. Patient was started on Zosyn in the ER, we will continue that. He was given IV fluids, morphine, Zofran and magnesium replacement. EMR does show history of congestive heart failure however no echo was available. Patient was admitted for monitoring. Necessitated cholecystectomy on 06/02 due to developing sepsis and severity of illness. Showing improvement after cholecystectomy yesterday. Patient doing surprisingly well this morning. Seeing improvement in labs. Had some pain issues overnight as he does not report pain but better after receiving medication. Slowly advance diet. Surgery assisting with care. Problems addressed as follows: Sepsis Acute cholecystitis - I believe sepsis was beginning on arrival but just needed time to declare itself. patient's white count was neutrophil predominant, he is tachycardic in the 90s with cholecystitis on CT of the abdomen along with [id number] ultrasound in the ER. White count jumped less than 12 hours after admission to 17 and patient's glucose has been dropping. These are all markers of his sepsis. My opinion this was present on admission. Was initiated on Zosyn on arrival. - Continue Zosyn 4.5g q6h. - Cultures remain negative from blood, cultures pending from gallbladder - White count improved to 12.5, kidney function stable BUN 20, creatinine 1.1. Liver enzymes stable with bilirubin 1.6, AST 59, ALT 48, alk phos 52. - Repeat CBC, CMP, magnesium ordered for the morning. - a hypoglycemia resolved. -Discussed case with general surgery today, pleased with patient's response. Minimal output from GRICELDA drain. Will slowly advance diet and continue to watch output. No bilious drainage in drain. Continue p.o. pain control. Initiate MiraLAX twice daily to promote bowel movements. - Continue morphine 4 mg IV every 4 hours as needed for breakthrough severe pain. Monitor for toxicity. Increase oral regimen to oxycodone 10 mg every 6 hours as patient is on baseline 7.54 times a day Coagulopathy secondary to Xarelto - Hemoglobin remains stable at 12.5. No significant bleeding. No indication for transfusion at this time. Consider resuming Xarelto in the morning if blood levels remain stable and no significant bleeding from surgical bed Diabetes: - Resume sliding scale insulin. Consider resuming basal insulin in the morning at reduced dose if glucose increasing. Has been stable above 80 since cholecystectomy without the need for dextrose infusions - Fingersticks ACHS BPH: Continue finasteride 5 mg daily and tamsulosin 0.4 mg nightly Dementia: Continue memantine 5 mg twice daily Full code Holding anticoagulation Full liquid diet
[2025-06-04] VITALS (8 sets, daily range): BP systolic 108–154; BP diastolic 52–83; PULSE 60–139; RESP 14–18; TEMP 36.4–37.7; O2SAT 86–99; BMI 34.3
[2025-06-04] MEDS: PIPERACILLIN/TAZO 4.5 GM in 0.9 % SODIUM CHLORIDE 100 ML IV ×3 (01:54→16:41)
--- NOTE | 2025-06-04 04:19 | PC.NURSE ---
Pt alert to self and occasionally place. Daughter reports that pt sundowns at night. Pt stated that he has been having trouble sleeping the past few days. Provider reordered seroquel and xanax, and pt has been sleeping well all night. Receiving IV abx. No reports of pain this shift. Currently resting in bed with eyes closed, respirations even and unlabored. Bed is low, locked, and call light is in reach.
[2025-06-04 04:54] LABS: POC Glucose,Bedside 119 gm/dL (70-110)
[2025-06-04 06:38] LABS: Hematocrit 35.3 % (42.0-52.0); Hemoglobin 11.4 g/dL (14.1-18.0); Immature Granulocytes % 0.4 %; Mean Corpuscular HGB Conc 32.3 g/dL (31.8-35.4); Mean Corpuscular Hemoglobin 29.8 pg (27.0-31.2); Mean Corpuscular Volume 92.2 fl (80-94); Nucleated Red Blood Cells % 0 %; Platelet Count 112 K/mm3 (142-424); Red Blood Count 3.83 M/mm3 (4.60-6.20); Red Cell Distribution Width-SD 47.2 fL; White Blood Count 6.7 K/mm3 (4.8-10.8)
[2025-06-04 06:47] LABS: Albumin Level 2.8 g/dl (3.5-5.0); Chloride 100 mmol/L (98-107); Potassium 3.8 mmoL/L (3.5-5.1); Sodium 135 mmol/L (136-145)
[2025-06-04 06:49] LABS: Blood Urea Nitrogen 19 mg/dl (9-20); Creatinine Clearance Estimated 70 mL/min (50-200); Creatinine,Serum 1.20 mg/dl (0.66-1.25); Estimated Glomerular Filt Rate 57 ml/min (>60); GFR (African American) 69 ML/MIN (>60)
[2025-06-04 06:50] LABS: Alanine Aminotransferase 34 U/L (12-78); Albumin/Globulin Ratio 1.1 (1.1-1.8); Alkaline Phosphatase 74 U/L (38-126); Anion Gap 6.8 mEq/L (5-15); Aspartate Amino Transferase 30 U/L (17-59); Bilirubin,Total 1.5 mg/dl (0.2-1.3); Calcium 7.9 mg/dl (8.4-10.2); Carbon Dioxide 32 mmol/L (22.0-30.0); Globulin 2.5 g/dL (1.3-3.2); Glucose 124 mg/dl (74-100); Total Protein,Serum 5.3 g/dl (6.3-8.2)
--- NOTE | 2025-06-04 07:48 | P.PN_ITS ---
Subjective *Date: 06/04/25 *Time: 13:56 Interval history: Feeling somewhat better with morning. Still a bowel movement the passing gas. Tolerating full liquid diet. Afebrile. Stable on room air. Little bit more sleepy however his Seroquel had been resumed. When family arrived and in discussing patient's case, they inform me that patient only takes 1/4 tablet even though it is prescribed a full tablet 3 times a day. Concern he is mildly sedated from Seroquel. Will discontinue this medication Medical Exam Vital signs and Labs for Last 24 Hours: Vital Signs Temp Pulse Pulse Resp BP BP Pulse Ox 06/04/25 06:37 06/04/25 05:00 06/04/25 04:00 100 H 06/04/25 04:00 98.4 F 60 14 112/62 89 L 06/04/25 03:00 06/04/25 01:00 06/04/25 00:00 90 06/04/25 00:00 98.3 F 98 H 14 122/52 L 94 L 06/03/25 23:00 06/03/25 21:00 06/03/25 20:00 120 H 06/03/25 20:00 06/03/25 20:00 99.0 F 111 H 14 115/66 95 06/03/25 18:43 06/03/25 17:00 06/03/25 16:00 120 H 06/03/25 15:55 98.4 F 113 H 25 H 106/67 L 95 06/03/25 14:50 06/03/25 13:00 06/03/25 11:58 98.4 F 104 H 18 96/59 L 94 L 06/03/25 11:00 06/03/25 09:00 99 H 18 131/70 92 L 06/03/25 09:00 06/03/25 08:00 98.3 F 93 H 16 121/64 92 L 06/03/25 08:00 94 L 06/03/25 08:00 90 O2 Del Method O2 Flow Rate 06/04/25 06:37 Room Air 06/04/25 05:00 Nasal Cannula 2 06/04/25 04:00 06/04/25 04:00 Nasal Cannula 2 06/04/25 03:00 Nasal Cannula 2 06/04/25 01:00 Nasal Cannula 2 06/04/25 00:00 06/04/25 00:00 Nasal Cannula 2 06/03/25 23:00 Room Air 06/03/25 21:00 Room Air 06/03/25 20:00 06/03/25 20:00 Room Air 06/03/25 20:00 Room Air 06/03/25 18:43 Room Air 06/03/25 17:00 Room Air 06/03/25 16:00 06/03/25 15:55 Room Air 06/03/25 14:50 Room Air 06/03/25 13:00 Room Air 06/03/25 11:58 Room Air 06/03/25 11:00 Nasal Cannula 2 06/03/25 09:00 Nasal Cannula 2 06/03/25 09:00 Nasal Cannula 2 06/03/25 08:00 Nasal Cannula 2 06/03/25 08:00 Nasal Cannula 2 06/03/25 08:00 Intake and Output 06/03/25 06/03/25 06/04/25 15:59 23:59 07:59 Intake Total 1078 / 2113 580 / 2113 100 / 100 Output Total 420 / 900 100 / 900 40 / 40 Balance 658 / 1213 480 / 1213 60 / 60 Intake: Intake, Oral Amount 978 / 1813 480 / 1813 Intake, Total IV Amount 100 / 300 100 / 300 100 / 100 Piperacillin/Tazo 4.5 gm In 0.9 100 / 300 100 / 300 100 / 100 % Sodium Chloride 100 ml @ 200 mls/hr IV Q8H [facility] Rx#:[id number] Output: Output, Urine Amount 400 / 800 100 / 800 Output, Drainage Amount 20 / 100 40 / 40 Right Abdomen 20 / 100 40 / 40 Other: Number of Unmeasured Voids 1 0 Weight 109.3 kg 111.312 kg Patient Weight 06/04/25 23:59 Weight 111.312 kg Laboratory Results - last 24 hr 06/03/25 11:18: POC Glucose 196 H 06/03/25 16:16: POC Glucose 137 H 06/03/25 19:51: POC Glucose 268 H 06/04/25 04:47: POC Glucose 119 H 06/04/25 06:00: WBC 6.7 D, RBC 3.83 L, Hgb 11.4 L, Hct 35.3 L, MCV 92.2, MCH 29.8, MCHC 32.3, RDW 13.8, Plt Count 112 L, MPV 9.8, Neut % (Auto) 67.2, Lymph % (Auto) 21.2, [place] % (Auto) 9.7 H, Eos % (Auto) 1.2, Baso % (Auto) 0.3, Neut # (Auto) 4.5, Lymph # (Auto) 1.4, [place] # (Auto) 0.7, Eos # (Auto) 0.1, Baso # (Auto) 0.0, Sodium 135 L, Potassium 3.8, Chloride 100, Carbon Dioxide 32 H, Anion Gap 6.8, BUN 19, Creatinine 1.20, Estimated Creat Clear 70, Estimated GFR 57 L, Est GFR ( Amer) 69, Glucose 124 H, Calcium 7.9 L, Total Bilirubin 1.5 H, AST 30 D, ALT 34 D, Alkaline Phosphatase 74, Total Protein 5.3 L, Albumin 2.8 L, Globulin 2.5, Albumin/Globulin Ratio 1.1 I & O for Labs for Last 24 Hours: Intake & Output 06/01/25 06/02/25 06/03/25 06/04/25 23:59 23:59 23:59 23:59 Intake Total 2150 / 2150 2967.500 / 3322.500 2113 / 2113 100 / 100 Output Total 200 / 200 1095 / 1145 900 / 900 40 / 40 Balance 1950 / 1950 1872.500 / 2177.500 1213 / 1213 60 / 60 Weight 104.78 kg 104.78 kg 109.3 kg 111.312 kg Microbiology Reports for the Last 24 Hours: Microbiology 06/02/25 10:15 Blood Blood Culture - Preliminary NO GROWTH AFTER 24 HOURS 06/02/25 10:20 Blood Blood Culture - Preliminary NO GROWTH AFTER 24 HOURS Constitutional: Present no acute distress, obese, chronically ill appearing and cooperative Head: Present atraumatic and normocephalic Respiratory: Present normal respiratory effort; Absent rhonchi, wheezes or crackles Cardiac: Present Regular Rhythm and Tachycardia GI: Present soft, tenderness (Interval improvement after surgery.) and normal bowel sounds; Absent distention, guarding or rebound Comments:: GRICELDA in right upper quadrant with scant bloody discharge. Extremities: Present full ROM; Absent normal inspection Skin: Present intact; Absent erythema Neuro: Present Grossly Intact, alert, awake and moves all extremities Comment:: Oriented to self and place, at baseline per family Assessment and Plan *Assessment and plan (1) Sepsis: Status: Acute Qualifiers: Sepsis acute organ dysfunction status: without acute organ dysfunction Sepsis type: sepsis due to unspecified organism Qualified Code(s): A41.9 - Sepsis, unspecified organism Category: Medical Code(s): A41.9 - Sepsis, unspecified organism (2) Acute cholecystitis: Problem Comment: Doing well POD#1 s/p technically challenging lap makenzie. Tbili slowly decreasing, 1.6 today. LFts normal. Drain is likely old thin blood. Monitor for bilious drainage. Ok to advance diet. Suppository PRN, colace bid, miralax bid for constipation. Status: Acute Category: Medical Code(s): K81.0 - Acute cholecystitis (3) CHF (congestive heart failure): Status: Acute Qualifiers: Heart failure chronicity: chronic Heart failure type: unspecified Qualified Code(s): I50.9 - Heart failure, unspecified Category: Medical Code(s): I50.9 - Heart failure, unspecified (4) Atrial fibrillation: Status: Acute Qualifiers: Atrial fibrillation type: unspecified chronic Qualified Code(s): I48.20 - Chronic atrial fibrillation, unspecified Category: Medical Code(s): I48.91 - Unspecified atrial fibrillation (5) T2DM (type 2 diabetes mellitus): Status: Acute Qualifiers: Diabetes mellitus complication status: without complication 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 Isabel. General surgery was consulted by the ED physician for possible cholecystitis. Plan for them to see in the morning. Patient was started on Zosyn in the ER, we will continue that. He was given IV fluids, morphine, Zofran and magnesium replacement. EMR does show history of congestive heart failure however no echo was available. Patient was admitted for monitoring. Necessitated cholecystectomy on 06/02 due to developing sepsis and severity of illness. Showing improvement after cholecystectomy yesterday. Patient doing surprisingly well this morning. Seeing improvement in labs. Had some pain issues overnight as he does not report pain but better after receiving medication. Slowly advance diet. Surgery assisting with care. Problems addressed as follows: Sepsis Acute cholecystitis - I believe sepsis was beginning on arrival but just needed time to declare itself. patient's white count was neutrophil predominant, he is tachycardic in the 90s with cholecystitis on CT of the abdomen along with [id number] ultrasound in the ER. White count jumped less than 12 hours after admission to 17 and patient's glucose has been dropping. These are all markers of his sepsis. My opinion this was present on admission. Was initiated on Zosyn on arrival. - Continue Zosyn 4.5g q6h. anticipate transition to Augmentin at discharge to complete at least 5-day course - Blood cultures negative at 48 hours. Peritoneal culture still pending - White count normalized to 6.7. Afebrile overnight. No nausea or vomiting. Kidney function normal. Liver enzymes continue to improve with bilirubin 1.5, AST, ALT, alk phos all within normal range. - Repeat CBC, CMP, magnesium ordered for the morning. - Discussed case with general surgery today, pleased with patient's response. Minimal output from GRICELDA drain. Advance to regular diet. No bilious drainage in GRICELDA. Continue p.o. pain control. - Continue MiraLAX twice daily. Will administer 1 bisacodyl enema this morning - Continue morphine 4 mg IV every 4 hours as needed for breakthrough severe pain. Monitor for toxicity. Increase oral regimen to oxycodone 10 mg every 6 hours as patient is on baseline 7.5 four times a day Coagulopathy secondary to Xarelto - Slight decrease in hemoglobin to 11.4. Scant discharge in GRICELDA. No significant bleeding. - Repeat CBC, CMP, magnesium ordered for the morning - Will resume Xarelto today for A-fib. - No indication for transfusion, threshold hemoglobin less than 7 Diabetes: - Resume sliding scale insulin. Initiate insulin glargine 15 mg this morning. Monitor glucose through the day. Glucose 124 this morning - Fingersticks ACHS BPH: Continue finasteride 5 mg daily and tamsulosin 0.4 mg nightly Dementia: Continue memantine 5 mg twice daily Full code Resume Xarelto today Advance to regular diet
--- NOTE | 2025-06-04 07:54 | EXP.ANES.II ---
[facility] Anesthesia Record Part II Anesthesia Record Part II Discharge Time: 15:30 Destination: Surgical Day Care (OP Surgery) PACU nurse assessment reviewed?: Yes Patient Condition:: Good Anesthesia Complications:: None Swallowing reflex intact?: Yes Airway Patency: Patent Cyanosis?: No Blood Pressure: 154/83 SaO2: 98 Respiratory Rate: 17 Pulse Rate: 106 Temperature: 97.5 F Mental Status: Alert & Oriented Pain level:: 0 Nausea and/or vomitting:: None Intake, IV Amount: 0 Hydration: Adequate
[2025-06-04] MEDS: FINASTERIDE 5MG TABLET 5 MG PO (09:05)
[2025-06-04] MEDS: DOCUSATE SODIUM 250MG CAPSULE 250 MG PO ×2 (09:05→21:09)
[2025-06-04] MEDS: GABAPENTIN 400MG CAPSULE 400 MG PO ×2 (09:06→21:08)
[2025-06-04] MEDS: INSULIN GLARGINE 100 UNITS/ML 3ML FLEXPEN 15 UNIT SUBCUT (09:06)
[2025-06-04] MEDS: POLYETHYLENE GLYCOL 3350 17 GM PACKET PO ×2 (09:07→21:09)
[2025-06-04] MEDS: MEMANTINE 10MG TABLET 5 MG PO ×2 (09:07→21:09)
[2025-06-04] MEDS: QUETIAPINE 100MG TABLET 50 MG PO (09:07)
--- NOTE | 2025-06-04 09:20 | HMH.PTEV ---
Physical Therapy Evaluation Rehab PT IP Evaluation Start: 06/03/25 14:46 Freq: ONCE Status: Active Protocol: Document 06/04/25 09:09 CODIE (Rec: 06/04/25 09:20 CODIE [id number]) Subjective/History History History Per H&P: 85-year-old male patient presents to ER with complaints of abdominal pain constipation and an episode of vomiting. He has had abdominal pain for the last 3 days and has not had a bowel movement. They did try suppositories x 3 without results. Then today he had an episode of vomiting and they brought him into the ER for further evaluation. Granddaughter is at bedside and unfortunately does not know a lot of his past medical history. Patient has dementia and is very pleasantly confused to history and events. He is oriented to place and person but he could not tell me the year. ER workup revealed an elevated neutrophil count without leukocytosis. Chemistry panel was essentially unremarkable with the exception of elevated glucose at 171 and a magnesium of 1.0 CT revealed a distended gallbladder with some abnormal attenuation possibly cholecystitis. There was also wall thickening of the rectum possibly indicating proctitis. Subjective Subjective Pt asleep and difficult to wake. Pt soiled in urine. Pt agreeable to PT evaluation. Pt's family member in room. Pt reports she lives home alone. Pt's family reports, that is incorrect, pt lives with his . Pt's family reports he uses a w/c and is able to transfer IND from hospital bed to w/c. Family reports no ramped entrance to home, short stair negotiation required. [facility] How much help from another person do you currently need... Turning from your A lot back to your side while in a flat bed without using bedrails? Moving from lying on A lot back to sitting on the side of a flat bed without using bedrails? Moving to and from a A lot bed to a chair ( including a wheelchair)? Standing up from a Total chair using your arms? (e.g., wheelchair, bedside chair) Walking in hospital Total room? Climbing 3-5 steps Total with a railing? Mobility Score 9 Mobility Level [facility] Mobility 3 Sit at edge of bed Mobility Calculator Rehab PT IP Eval Objective Appearance Patient Behavior Confused Patient Orientation Person Difficulty following moderate instructions Ambulation Patient Able to No Ambulate Balance Ability to Arise Unable Transfers Bed Transfer Ability Maximum x 2 (75% assist) Rehab PT IP prob,goals,plan Problems Date of Evaluation: 06/04/25 PT IP Problems Bed Mobility,Transfers,Gait,Balance,Self care,Safety Rehab Potential Rehab Potential Good Plan PT Intervention Plan Bed Mobility,Transfers,Gait,Balance,Self care,Safety, Therapeutic Exercise Other Intervention 1-2 times Plan PT Plan Frequency Daily Duration LOS Discharge Goals Bed Transfer Ability Moderate x 1 (50% assist) Sit to Stand Chair Moderate x 2 (50% assist) Transfer Ability Discharge Plan PT Discharge Plan Initial PT evaluation performed. Pt presents below his baseline in functional mobility. PT recommending inpatient rehabilitation placement upon d/c from [facility] to address deficits, maximize safety, and decrease caregiver burden. Pt would benefit from skilled acute care PT while at [facility]. Eval Complexity Eval Charge Codes 04674 - Moderate Complexity PHYSICIAN CERTIFICATION: I certify the specified therapy services for Boubacar Rico Sahil are required, authorized, and reviewed every 30 days.
--- NOTE | 2025-06-04 10:56 | HMH.OTEV ---
OT Evaluation Rehab OT IP Evaluation Start: 06/03/25 14:46 Freq: ONCE Status: Active Protocol: Document 06/04/25 10:48 VIDAL (Rec: 06/04/25 10:55 VIDAL [id number]) Rehab OT IP Assessment Subjective History General surgery was consulted by the ED physician for possible cholecystitis. Plan for them to see in the morning. Patient was started on Zosyn in the ER, we will continue that. He was given IV fluids, morphine, Zofran and magnesium replacement. EMR does show history of congestive heart failure however no echo was available. Patient was admitted for monitoring. Necessitated cholecystectomy on 06/02 due to developing sepsis and severity of illness. Showing improvement after cholecystectomy yesterday. Patient doing surprisingly well this morning. Seeing improvement in labs. Had some pain issues overnight as he does not report pain but better after receiving medication. Slowly advance diet. Surgery assisting with care. Problems addressed as follows: Sepsis Acute cholecystitis - I believe sepsis was beginning on arrival but just needed time to declare itself. patient's white count was neutrophil predominant, he is tachycardic in the 90s with cholecystitis on CT of the abdomen along with [id number] ultrasound in the ER. White count jumped less than 12 hours after admission to 17 and patient's glucose has been dropping. These are all markers of his sepsis. My opinion this was present on admission. Was initiated on Zosyn on arrival. - Continue Zosyn 4.5g q6h. - Cultures remain negative from blood, cultures pending from gallbladder - White count improved to 12.5, kidney function stable BUN 20, creatinine 1.1. Liver enzymes stable with bilirubin 1.6, AST 59, ALT 48, alk phos 52. - Repeat CBC, CMP, magnesium ordered for the morning. - a hypoglycemia resolved. -Discussed case with general surgery today, pleased with patient's response. Minimal output from GRICELDA drain. Will slowly advance diet and continue to watch output . No bilious drainage in drain. Continue p.o. pain control. Initiate MiraLAX twice daily to promote bowel movements. - Continue morphine 4 mg IV every 4 hours as needed for breakthrough severe pain. Monitor for toxicity. Increase oral regimen to oxycodone 10 mg every 6 hours as patient is on baseline 7.54 times a day. Patient is a poor historian. Per nursing staff, Patient lives with in 1 story home with 1 DARREN with porch. Patient uses a RW if provided verbal reminders. Patient requires assistance for ADLs and fx'l mobility for safety. Subjective I just feel bad. Patient incontinent of bladder mgt tr this date. Patient required Max A to complete bed mobility from supine->sit @ EOB->Mod Ax2 to complete DARREN with usage of RW. Once standing, Patient required Min A X2 for safety and proper placement of RW to prevent fall risk. Patient was able to maneuver throughout the room ~15ft with RW with Min A x2. Patient required Min A x2 to complete stand->sit in recliner. Nursing staff to assist with bathing. Objective Patient Orientation Person,Place,Birthday Right Upper WFL Extremity Gross ROM Left Upper Extremity WFL Gross ROM Bed Mobility bed mobility - supine/sit Assist Level Maximum x 2 (75% assist) Transfer Training Sit/Stand/Step Transfer Assist Level Moderate x 2 (50% assist) Chair Transfer Moderate x 2 (50% assist) Ability Chair Transfer Sit to/from Ambulatory Technique Chair Transfer Rolling Walker Assistive Devices Rehab OT IP prob,goals,plan Problems Date of Evaluation: 06/04/25 OT IP Problems Bed Mobility,Transfers,Balance,Self care,Safety Rehab Potential Rehab Potential Good Equipment Needs Assistive Devices Rolling / Wheeled Walker Plan OT intervention Plan Bed Mobility,Transfers,Balance,Self care,Safety, Therapeutic Exercise OT Plan Frequency Daily Duration LOS Discharge Goals Bed Mobility Ability Assistance x2 Sit to Stand Chair Maximum x 1 (75% assist) Transfer Ability Chair Transfer Maximum x 1 (75% assist) Ability Chair Transfer Sit to/from Ambulatory Technique Chair Transfer Rolling Walker Assistive Devices Discharge Plan OT Discharge Plan Recommend 08/03 care from family or placement at this time. Patient is unable to care for himself independently. Patient to continue skilled OT services while here at [facility] medical d/c for safety awareness for ADLs and fx'l mobility tasks. Eval Complexity Eval Charge Codes 12101 - Low Complexity PHYSICIAN CERTIFICATION: I certify the specified therapy services for Boubacar B Sahil are required, authorized, and reviewed every 30 days.
[2025-06-04 11:07] LABS: POC Glucose,Bedside 221 gm/dL (70-110)
--- NOTE | 2025-06-04 11:52 | HMH.PHAAMS2 ---
- Antimicrobial Stewardship Review 48 hour timeout review Stewardship interventions: 48 hour timeout review, reviewed - no change Comments: EMPIRIC THERAPY, NO CULTURE RESULTS STILL PENDING
[2025-06-04] MEDS: humaLOG 100 UNITS/ML 10ML VIAL (SSI) SUBCUT (11:56)
--- NOTE | 2025-06-04 13:18 | SW/DCPLANNER ---
Addendum entered by Kristen Harris 06/05/25 09:29: Family prefer that patient returns home w/ home health services. Addendum entered by Kristen Harris 06/05/25 08:29: Per Chris w/ [facility] he is interested in patient for placement. Per PT patient is much improved this AM and could return home w/ his . I will follow up w/ patient and family members regarding discharge planning. Discharge date is unknown at this time. Original Note: I spoke w/ patient's and daughter regarding discharge planning. PT evaluated patient and recommended SNF level of care at time of discharge. Per MD and they will try medication changes to see if this improves mental status and patient could return home. prefer patient return if able due to being wheelchair bound for most part at home. Daughter does live w/ and patient at home. stated that if placement was needed she would only be agreeable to [facility] at this point. is agreeable for information to be faxed to [facility] at this time incase placement is needed. CM will continue to follow up.
[2025-06-04] MEDS: BISACODYL 10MG SUPP 10 MG RC (14:46)
[2025-06-04 17:21] LABS: POC Glucose,Bedside 137 gm/dL (70-110)
[2025-06-04] MEDS: OXYCODONE 7.5MG W/APAP 325MG TABLET 1 EACH PO (17:44)
[2025-06-04] MEDS: TAMSULOSIN 0.4MG CAPSULE 0.4 MG PO (21:08)
[2025-06-04 21:17] LABS: POC Glucose,Bedside 143 gm/dL (70-110)
[2025-06-05] MEDS: PIPERACILLIN/TAZO 4.5 GM in 0.9 % SODIUM CHLORIDE 100 ML IV ×3 (02:27→16:40)
[2025-06-05 03:18] LABS: POC Glucose,Bedside 61 gm/dL (70-110)
[2025-06-05 04:00] VITALS: BP 112/71; PULSE 111; RESP 14; TEMP 36.8; O2SAT 95; BMI 33.1
[2025-06-05 06:14] LABS: Hematocrit 38.5 % (42.0-52.0); Hemoglobin 12.4 g/dL (14.1-18.0); Immature Granulocytes % 0.6 %; Mean Corpuscular HGB Conc 32.2 g/dL (31.8-35.4); Mean Corpuscular Hemoglobin 30.2 pg (27.0-31.2); Mean Corpuscular Volume 93.7 fl (80-94); Nucleated Red Blood Cells % 0 %; Platelet Count 142 K/mm3 (142-424); Red Blood Count 4.11 M/mm3 (4.60-6.20); Red Cell Distribution Width-SD 46.9 fL; White Blood Count 6.2 K/mm3 (4.8-10.8)
[2025-06-05 06:23] LABS: Albumin Level 3.0 g/dl (3.5-5.0); Chloride 98 mmol/L (98-107); Potassium 3.7 mmoL/L (3.5-5.1); Sodium 136 mmol/L (136-145)
[2025-06-05 06:26] LABS: Alanine Aminotransferase 28 U/L (12-78); Albumin/Globulin Ratio 1.2 (1.1-1.8); Alkaline Phosphatase 58 U/L (38-126); Anion Gap 7.7 mEq/L (5-15); Aspartate Amino Transferase 24 U/L (17-59); Bilirubin,Total 1.5 mg/dl (0.2-1.3); Blood Urea Nitrogen 16 mg/dl (9-20); Carbon Dioxide 34 mmol/L (22.0-30.0); Creatinine Clearance Estimated 73 mL/min (50-200); Creatinine,Serum 1.10 mg/dl (0.66-1.25); Estimated Glomerular Filt Rate 63 ml/min (>60); GFR (African American) 77 ML/MIN (>60); Globulin 2.5 g/dL (1.3-3.2); Total Protein,Serum 5.5 g/dl (6.3-8.2)
[2025-06-05 06:27] LABS: Calcium 8.0 mg/dl (8.4-10.2); Glucose 147 mg/dl (74-100)
[2025-06-05 06:29] LABS: POC Glucose,Bedside 138 gm/dL (70-110)
[2025-06-05 08:00] VITALS: BP 124/62; PULSE 106; RESP 18; TEMP 37.1; O2SAT 92
[2025-06-05] MEDS: POLYETHYLENE GLYCOL 3350 17 GM PACKET PO ×2 (08:37→20:44)
[2025-06-05] MEDS: OXYCODONE 7.5MG W/APAP 325MG TABLET 1 EACH PO ×3 (08:38→20:46)
[2025-06-05] MEDS: FINASTERIDE 5MG TABLET 5 MG PO (08:38)
[2025-06-05] MEDS: DOCUSATE SODIUM 250MG CAPSULE 250 MG PO ×2 (08:38→20:44)
[2025-06-05] MEDS: GABAPENTIN 400MG CAPSULE 400 MG PO ×2 (08:38→20:44)
[2025-06-05] MEDS: MEMANTINE 10MG TABLET 5 MG PO ×2 (08:39→20:44)
[2025-06-05] MEDS: INSULIN GLARGINE 100 UNITS/ML 3ML FLEXPEN 15 UNIT SUBCUT (08:39)
--- NOTE | 2025-06-05 08:39 | P.PN_ITS ---
Subjective Narrative: Patient feels good without complaints. Tolerating regular diet. Exam Data for Last 24 hours Vital signs and Labs for Last 24 Hours: Temp Pulse Resp BP Pulse Ox O2 Del Method O2 Flow Rate 98.2 F 111 H 14 112/71 95 Room Air 2 06/05/25 04:00 06/05/25 04:00 06/05/25 04:00 06/05/25 04:00 06/05/25 04:00 06/05/25 07:00 06/05/25 01:00 Laboratory Results - last 24 hr 06/02/25 08:58: Blood Type O Negative, Antibody Screen Negative, Crossmatch (AHG) See Detail 06/02/25 12:47: POC Glucose 61 L 06/04/25 10:59: POC Glucose 221 H 06/04/25 16:39: POC Glucose 137 H 06/04/25 21:06: POC Glucose 143 H 06/05/25 05:51: WBC 6.2, RBC 4.11 L, Hgb 12.4 L, Hct 38.5 L, MCV 93.7, MCH 30.2, MCHC 32.2, RDW 13.6, Plt Count 142 D, MPV 9.5, Neut % (Auto) 60.4, Lymph % (Auto) 26.3, [place] % (Auto) 10.2 H, Eos % (Auto) 1.9, Baso % (Auto) 0.6, Neut # (Auto) 3.7, Lymph # (Auto) 1.6, [place] # (Auto) 0.6, Eos # (Auto) 0.1, Baso # (Auto) 0.0, Sodium 136, Potassium 3.7, Chloride 98, Carbon Dioxide 34 H, Anion Gap 7.7, BUN 16, Creatinine 1.10, Estimated Creat Clear 73, Estimated GFR 63, Est GFR ( Amer) 77, Glucose 147 H, Calcium 8.0 L, Total Bilirubin 1.5 H, AST 24, ALT 28, Alkaline Phosphatase 58, Total Protein 5.5 L, Albumin 3.0 L, Globulin 2.5, Albumin/Globulin Ratio 1.2 06/05/25 06:21: POC Glucose 138 H I & O for Last 24 hours: Intake & Output 06/02/25 06/03/25 06/04/25 06/05/25 11:59 11:59 11:59 11:59 Intake Total 3398.333 / 3398.333 2716.167 / 2716.167 1836 / 1836 700 / 700 Output Total 675 / 675 1400 / 1400 810 / 810 440 / 440 Balance 2723.333 / 2723.333 1316.167 / 3914.863 3457 / 1026 260 / 260 Weight 231 lb 240 lb 15.444 oz 245 lb 6.4 oz 236 lb 9 oz Microbiology Reports for the Last 24 Hours: Microbiology 06/02/25 10:20 Blood Blood Culture - Preliminary NO GROWTH AFTER 48 HOURS 06/02/25 10:15 Blood Blood Culture - Preliminary NO GROWTH AFTER 48 HOURS *Routine Abdominal Exam Abdominal: Present soft Comments: GRICELDA drain output with dark black liquid. Progress Note: A&P Assessment and plan (1) Sepsis: Status: Acute Assessment and plan: Doubt cystic duct injury. However I will see if lab can check total bilirubin on the drain output. If elevated may plan for HIDA scan to check for cystic duct leak. (2) Acute cholecystitis: Status: Acute (3) CHF (congestive heart failure): Status: Acute (4) Atrial fibrillation: Status: Acute (5) T2DM (type 2 diabetes mellitus): Status: Acute (6) Chronic anticoagulation: Status: Acute (7) Hypomagnesemia: Status: Acute
[2025-06-05 08:56] LABS: POC Glucose,Bedside 153 gm/dL (70-110)
[2025-06-05] MEDS: ONDANSETRON 4MG/2ML VIAL 4 MG IV (10:07)
[2025-06-05] MEDS: humaLOG 100 UNITS/ML 10ML VIAL (SSI) SUBCUT ×3 (11:11→20:44)
[2025-06-05 11:12] LABS: POC Glucose,Bedside 206 gm/dL (70-110)
[2025-06-05 11:12] LABS: POC Glucose,Bedside 39 gm/dL (70-110)
[2025-06-05] MEDS: MORPHINE 4MG/ML SYRINGE 4 MG IV ×3 (11:14→23:33)
--- NOTE | 2025-06-05 11:31 | SW/DCPLANNER ---
Addendum entered by Cookie Qiu 06/05/25 13:43: [facility] was able to accept patient. Cliff WILLIS Tar Worker Original Note: Spoke with patient's on the phone regarding home health services once her is medically stable and ready for discharge. Patient's stated that they have no preference in what agency i send his information to. I faxed patient's information to [facility] and will update once i hear back if they can accept patient or not. Cliff Varela
[2025-06-05 12:00] VITALS: BP 123/72; PULSE 89; RESP 18; TEMP 36.6; O2SAT 98
--- NOTE | 2025-06-05 13:06 | P.PN_ITS ---
Subjective *Date: 06/05/25 *Time: 13:06 Interval history: Patient continues to have RUQ pain, quite tender on exam. Discussed with general surgery, concerning for cystic duct leak. Follow-up HIDA scan in the morning. N.p.o. at midnight. Exam Data for Last 24 hours Vital signs and Labs for Last 24 Hours: Temp Pulse Resp BP Pulse Ox O2 Del Method O2 Flow Rate 98.7 F 106 H 18 124/62 92 L Room Air 2 06/05/25 08:00 06/05/25 08:00 06/05/25 08:00 06/05/25 08:00 06/05/25 08:00 06/05/25 11:00 06/05/25 01:00 Laboratory Results - last 24 hr 06/02/25 04:06: POC Glucose 39 L* 06/02/25 08:58: Blood Type O Negative, Antibody Screen Negative, Crossmatch (AHG) See Detail 06/02/25 12:47: POC Glucose 61 L 06/04/25 16:39: POC Glucose 137 H 06/04/25 21:06: POC Glucose 143 H 06/05/25 05:51: WBC 6.2, RBC 4.11 L, Hgb 12.4 L, Hct 38.5 L, MCV 93.7, MCH 30.2, MCHC 32.2, RDW 13.6, Plt Count 142 D, MPV 9.5, Neut % (Auto) 60.4, Lymph % (Auto) 26.3, [place] % (Auto) 10.2 H, Eos % (Auto) 1.9, Baso % (Auto) 0.6, Neut # (Auto) 3.7, Lymph # (Auto) 1.6, [place] # (Auto) 0.6, Eos # (Auto) 0.1, Baso # (Auto) 0.0, Sodium 136, Potassium 3.7, Chloride 98, Carbon Dioxide 34 H, Anion Gap 7.7, BUN 16, Creatinine 1.10, Estimated Creat Clear 73, Estimated GFR 63, Est GFR ( Amer) 77, Glucose 147 H, Calcium 8.0 L, Total Bilirubin 1.5 H, AST 24, ALT 28, Alkaline Phosphatase 58, Total Protein 5.5 L, Albumin 3.0 L, Globulin 2.5, Albumin/Globulin Ratio 1.2 06/05/25 06:21: POC Glucose 138 H 06/05/25 08:36: POC Glucose 153 H 06/05/25 11:03: POC Glucose 206 H I & O for Last 24 hours: Intake & Output 06/02/25 06/03/25 06/04/25 06/05/25 23:59 23:59 23:59 23:59 Intake Total 2967.500 / 3322.500 2113 / 2113 1120 / 1320 400 / 400 Output Total 1095 / 1145 900 / 900 930 / 1130 200 / 200 Balance 1872.500 / 2177.500 1213 / 1213 190 / 190 200 / 200 Weight 104.78 kg 109.3 kg 111.312 kg 107.303 kg Microbiology Reports for the Last 24 Hours: Microbiology 06/02/25 10:20 Blood Blood Culture - Preliminary NO GROWTH AFTER 48 HOURS 06/02/25 10:15 Blood Blood Culture - Preliminary NO GROWTH AFTER 48 HOURS Constitutional Constitutional: no acute distress and obese *Routine HEENT Exam Head: Present normocephalic Eye: Present EOMI and PERRL ENT: Present mucous membranes moist *Routine Neck Exam Neck: Present supple; Absent lymphadenopathy *Routine Respiratory Exam Respiratory: Present CTA bilaterally *Routine Cardiovascular Exam Cardiovascular: Present RRR *Routine Abdominal Exam Abdominal: Present soft and tenderness Comments: GRICELDA drain output with dark black liquid. Moderate right upper quadrant tenderness to palpation. *Routine Extremities Exam Extremities: Absent cyanosis, clubbing or edema *Routine Skin Exam Skin: Present warm; Absent rash *Routine Neurological Exam Neurological: Present alert and oriented X3 Assessment and Plan *Assessment and plan (1) Sepsis: Status: Acute Qualifiers: Sepsis type: sepsis due to unspecified organism Sepsis acute organ dysfunction status: without acute organ dysfunction Qualified Code(s): A41.9 - Sepsis, unspecified organism Category: Medical Code(s): A41.9 - Sepsis, unspecified organism (2) Acute cholecystitis: Status: Acute Category: Medical Code(s): K81.0 - Acute cholecystitis (3) CHF (congestive heart failure): Status: Acute Qualifiers: Heart failure type: unspecified Heart failure chronicity: chronic Qualified Code(s): I50.9 - Heart failure, unspecified Category: Medical Code(s): I50.9 - Heart failure, unspecified (4) Atrial fibrillation: Status: Acute Qualifiers: Atrial fibrillation type: unspecified chronic Qualified Code(s): I48.20 - Chronic atrial fibrillation, unspecified Category: Medical Code(s): I48.91 - Unspecified atrial fibrillation (5) T2DM (type 2 diabetes mellitus): Status: Acute Qualifiers: Diabetes mellitus 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 S/p cholecystectomy on 06/02/2025. Hospital course complicated by persistent RUQ pain concerning for cystic duct/biliary leak. #Sepsis, resolved #Acute cholecystitis, resolved #Suspected cystic duct/biliary leak ? Presented with WBC 17, with tachycardia. Initiated on IV Zosyn for acute cholecystitis. ? General Surgery consulted, s/p laparoscopic cholecystectomy on 06/02/2025 revealing early gangrenous cholecystitis. General surgery advised continue monitoring with GRICELDA drain which has had minimal serosanguineous output. ? Today, patient continues to have right upper quadrant pain worse with eating. Quite tender to palpation in RUQ. ? Discussed with general surgery, concern for cystic duct/biliary leak. Recommended testing peritoneal drainage for total bilirubin, but this will be a send out lab. Also recommended HIDA scan in the morning. ? Follow-up HIDA scan in the morning, n.p.o. at midnight. ? Continue Zosyn 4.5 g every 6 hours. Blood, peritoneal cultures NGTD. WBC 6.2 today, but tachycardic 106. Diabetes: - Resume sliding scale insulin. Continue insulin glargine 15 mg this morning. Monitor glucose through the day. Glucose 124 this morning - Fingersticks ACHS. Patient was hypoglycemic during admission, which improved with dextrose fluids. BPH: Continue finasteride 5 mg daily and tamsulosin 0.4 mg nightly Dementia: Continue memantine 5 mg twice daily Full code DVT prophylaxis: Xarelto Advance to regular diet
[2025-06-05 14:42] LABS: NT Pro Brain Natriuretic Pep. 1320 pg/mL (0-450)
[2025-06-05 16:00] VITALS: BP 115/69; PULSE 99; RESP 16; TEMP 36.7; O2SAT 97
--- NOTE | 2025-06-05 17:54 | PC.NURSE ---
Pt is A&Ox4 with some forgetfulness at times. Vital signs stable tolerating room air. IV abx infused per OCT. Pt complains of abdominal pain and nausea. PRN pain and nausea medication given with relief. 4 lap sites to abdomen with dressings in place. RLQ GRICELDA drain in place. Pt has sat up in the chair all day. Pt sitting up in the chair with family at bedside. No further needs voiced at this time. Call light within reach.
[2025-06-05 20:00] VITALS: BP 133/67; PULSE 96; RESP 16; TEMP 36.8; O2SAT 93
[2025-06-05 20:44] LABS: POC Glucose,Bedside 153 gm/dL (70-110)
[2025-06-05] MEDS: TAMSULOSIN 0.4MG CAPSULE 0.4 MG PO (20:44)
[2025-06-06] VITALS: BP 138/69; PULSE 107; RESP 16; TEMP 36.8; O2SAT 95
[2025-06-06] MEDS: OXYCODONE 7.5MG W/APAP 325MG TABLET 1 EACH PO ×2 (01:50→15:02)
[2025-06-06] MEDS: PIPERACILLIN/TAZO 4.5 GM in 0.9 % SODIUM CHLORIDE 100 ML IV ×2 (01:50→09:01)
--- NOTE | 2025-06-06 02:07 | PC.NURSE ---
Radiology reported patient can't have pain medications prior to procedure in the AM - patient was informed and verbalized understanding. patient had received pain medications prior to radiology calling.
[2025-06-06 04:00] VITALS: BP 101/60; PULSE 103; RESP 16; TEMP 36.9; O2SAT 93; BMI 33.8
--- NOTE | 2025-06-06 06:00 | NM_ITS ---
FINAL REPORT TECHNIQUE: The patient was injected with 8.13mCi of technetium 99m Choletec. Images of the abdomen were obtained for one hour. CLINICAL HISTORY: Evaluate for cystic duct leak, s/p cholecystectomy, abd pain, nausea 11:05am 8.13 [facility] tc choletec FINDINGS: There is normal uptake in the liver and biliary tree. Appropriate drainage of activity into the small bowel is noted. There is some bowel reflux into the stomach. No evidence of leak. IMPRESSION: No findings to indicate bile leak or biliary obstruction. Incidental note of bile reflux into stomach. Reviewed, Interpreted and Dictated by Mohamud Holt MD Transcribed by Marie Malone Authenticated and [facility]
[2025-06-06 06:21] LABS: POC Glucose,Bedside 142 gm/dL (70-110)
[2025-06-06 06:40] LABS: Albumin Level 3.0 g/dl (3.5-5.0); Chloride 98 mmol/L (98-107); Sodium 136 mmol/L (136-145)
[2025-06-06 06:41] LABS: Potassium 3.9 mmoL/L (3.5-5.1)
[2025-06-06 06:43] LABS: Alanine Aminotransferase 25 U/L (12-78); Anion Gap 9.9 mEq/L (5-15); Aspartate Amino Transferase 28 U/L (17-59); Blood Urea Nitrogen 18 mg/dl (9-20); Carbon Dioxide 32 mmol/L (22.0-30.0); Creatinine Clearance Estimated 69 mL/min (50-200); Creatinine,Serum 1.20 mg/dl (0.66-1.25); Estimated Glomerular Filt Rate 57 ml/min (>60); GFR (African American) 69 ML/MIN (>60)
[2025-06-06 06:44] LABS: Albumin/Globulin Ratio 1.2 (1.1-1.8); Alkaline Phosphatase 57 U/L (38-126); Bilirubin,Total 0.8 mg/dl (0.2-1.3); Calcium 8.0 mg/dl (8.4-10.2); Globulin 2.5 g/dL (1.3-3.2); Glucose 139 mg/dl (74-100); Total Protein,Serum 5.5 g/dl (6.3-8.2)
[2025-06-06 06:47] LABS: Hematocrit 36.5 % (42.0-52.0); Hemoglobin 11.8 g/dL (14.1-18.0); Immature Granulocytes % 0.7 %; Mean Corpuscular HGB Conc 32.3 g/dL (31.8-35.4); Mean Corpuscular Hemoglobin 30.1 pg (27.0-31.2); Mean Corpuscular Volume 93.1 fl (80-94); Nucleated Red Blood Cells % 0 %; Platelet Count 142 K/mm3 (142-424); Red Blood Count 3.92 M/mm3 (4.60-6.20); Red Cell Distribution Width-SD 45.1 fL; White Blood Count 5.8 K/mm3 (4.8-10.8)
[2025-06-06 08:00] VITALS: BP 111/62; PULSE 99; RESP 18; TEMP 36.9; O2SAT 92
--- NOTE | 2025-06-06 08:01 | XR_ITS ---
FINAL REPORT CLINICAL HISTORY: Productive cough, Elevated BNP COMPARISON: None FINDINGS: Single frontal view of the chest was obtained. There is minimal scar or atelectasis in the right midlung. Mild scarring is noted in the left lung base. No focal infiltrate or edema. There is no evidence of effusion or pneumothorax. Mediastinum is unremarkable. Heart size is normal. IMPRESSION: Chronic appearing changes without evidence of CHF. Reviewed, Interpreted and Dictated by Mohamud Holt MD Transcribed by Marie Malone Authenticated and [facility]
[2025-06-06] MEDS: DOCUSATE SODIUM 250MG CAPSULE 250 MG PO (09:00)
[2025-06-06] MEDS: MEMANTINE 10MG TABLET 5 MG PO (09:00)
[2025-06-06] MEDS: GABAPENTIN 400MG CAPSULE 400 MG PO (09:00)
--- NOTE | 2025-06-06 09:00 | P.PN_ITS ---
Subjective Narrative: No new complaints. Some dark output from drain Exam Data for Last 24 hours Vital signs and Labs for Last 24 Hours: Temp Pulse Resp BP Pulse Ox O2 Del Method O2 Flow Rate 98.4 F 99 H 18 111/62 92 L Room Air 2 06/06/25 08:00 06/06/25 08:00 06/06/25 08:00 06/06/25 08:00 06/06/25 08:00 06/06/25 08:00 06/05/25 01:00 Laboratory Results - last 24 hr 06/02/25 04:06: POC Glucose 39 L* 06/05/25 05:57: NT-Pro-B Natriuret Pep 1320 H 06/05/25 11:03: POC Glucose 206 H 06/05/25 20:36: POC Glucose 153 H 06/06/25 06:13: WBC 5.8, RBC 3.92 L, Hgb 11.8 L, Hct 36.5 L, MCV 93.1, MCH 30.1, MCHC 32.3, RDW 13.3, Plt Count 142, MPV 9.9, Neut % (Auto) 44.7, Lymph % (Auto) 35.7, [place] % (Auto) 12.9 H, Eos % (Auto) 5.0, Baso % (Auto) 1.0, Neut # (Auto) 2.6, Lymph # (Auto) 2.1, [place] # (Auto) 0.7, Eos # (Auto) 0.3, Baso # (Auto) 0.1, Sodium 136, Potassium 3.9, Chloride 98, Carbon Dioxide 32 H, Anion Gap 9.9, BUN 18, Creatinine 1.20, Estimated Creat Clear 69, Estimated GFR 57 L, Est GFR ( Amer) 69, Glucose 139 H, Calcium 8.0 L, Total Bilirubin 0.8, AST 28, ALT 25, Alkaline Phosphatase 57, Total Protein 5.5 L, Albumin 3.0 L, Globulin 2.5, Albumin/Globulin Ratio 1.2 06/06/25 06:14: POC Glucose 142 H I & O for Last 24 hours: Intake & Output 06/03/25 06/04/25 06/05/25 06/06/25 11:59 11:59 11:59 11:59 Intake Total 2716.167 / 2716.167 1836 / 1836 800 / 800 1720 / 1720 Output Total 1400 / 1400 810 / 810 510 / 510 775 / 775 Balance 1316.167 / 6430.036 5898 / 1026 290 / 290 945 / 945 Weight 240 lb 15.444 oz 245 lb 6.4 oz 236 lb 9 oz 242 lb *Routine Abdominal Exam Abdominal: Present soft and tenderness Progress Note: A&P Assessment and plan (1) Sepsis: Status: Acute (2) Acute cholecystitis: Status: Acute Assessment and plan: LFTs normalized. HIDA scan today to evaluate potential duct leak due to dark drain output. If no leak detected recommend drain removal. (3) CHF (congestive heart failure): Status: Acute (4) Atrial fibrillation: Status: Acute (5) T2DM (type 2 diabetes mellitus): Status: Acute (6) Chronic anticoagulation: Status: Acute (7) Hypomagnesemia: Status: Acute
[2025-06-06] MEDS: FUROSEMIDE 40MG/4ML VIAL 40 MG IV (09:01)
[2025-06-06] MEDS: FINASTERIDE 5MG TABLET 5 MG PO (09:01)
[2025-06-06 09:08] LABS: C-Reactive Protein 78.1 mg/L (0-4)
[2025-06-06 09:26] LABS: POC Glucose,Bedside 145 gm/dL (70-110)
[2025-06-06] MEDS: SODIUM CHLORIDE 0.9% 10ML SYR (RAD ONLY) 10 ML IV (11:19)
[2025-06-06] MEDS: ISOTOPE CHOLETECH;1 DOSE (UP TO 15 MCI) IV (11:19)
[2025-06-06 12:00] VITALS: BP 143/74; PULSE 100; RESP 19; TEMP 36.9; O2SAT 91
[2025-06-06 12:34] LABS: POC Glucose,Bedside 190 gm/dL (70-110)
[2025-06-06] MEDS: POLYETHYLENE GLYCOL 3350 17 GM PACKET PO (14:11)
--- NOTE | 2025-06-06 14:24 | EXP.DC.SUM ---
General Admission date:: 06/01/25 HPI HPI HPI: 85-year-old male patient presents to ER with complaints of abdominal pain constipation and an episode of vomiting. He has had abdominal pain for the last 3 days and has not had a bowel movement. They did try suppositories x 3 without results. Then today he had an episode of vomiting and they brought him into the ER for further evaluation. Granddaughter is at bedside and unfortunately does not know a lot of his past medical history. Patient has dementia and is very pleasantly confused to history and events. He is oriented to place and person but he could not tell me the year. ER workup revealed an elevated neutrophil count without leukocytosis. Chemistry panel was essentially unremarkable with the exception of elevated glucose at 171 and a magnesium of 1.0 CT revealed a distended gallbladder with some abnormal attenuation possibly cholecystitis. There was also wall thickening of the rectum possibly indicating proctitis. Hospital Course Hospital Course Hospital Course: Patient presented with abdominal pain and was admitted for sepsis secondary to acute cholecystitis. S/p cholecystectomy on 06/02/2025. Hospital course complicated by persistent RUQ pain concerning for cystic duct/biliary leak. #Sepsis, resolved #Acute cholecystitis, resolved ? Presented with WBC 17, with tachycardia. Initiated on IV Zosyn for acute cholecystitis. ? General Surgery consulted, s/p laparoscopic cholecystectomy on 06/02/2025 revealing early gangrenous cholecystitis. ? GRICELDA drain was placed, which had initial serosanguineous discharge then dark maroon discharge. Patient continued to have RUQ pain so there was some concern for cystic duct/biliary leak. ? Discussed with general surgery, HIDA scan obtained which did not suggest cystic duct/biliary leak. Patient's symptoms also improved, including pain. ? GRICELDA drain continues to drain dark maroon discharge, discussed with surgery who recommended keeping it for now until close follow-up. ? Will follow-up with general surgery within 1 week. Will continue home Percocet for pain control. Diabetes: -Hold home metformin until follow-up with surgery. Continue home insulin. Hemoglobin A1c 7.3%. BPH: Continue finasteride 5 mg daily and tamsulosin 0.4 mg nightly Dementia: Continue memantine 5 mg twice daily Total time spent on discharge: 31 minutes on chart review, counseling, documentation, and direct care with patient. Exam Data for Last 24 hours Vital signs and Labs for Last 24 Hours: Temp Pulse Resp BP Pulse Ox O2 Del Method O2 Flow Rate 98.4 F 100 H 19 143/74 H 91 L Room Air 2 06/06/25 12:00 06/06/25 12:00 06/06/25 12:00 06/06/25 12:00 06/06/25 12:00 06/06/25 13:00 06/05/25 01:00 Laboratory Results - last 24 hr 06/05/25 05:57: NT-Pro-B Natriuret Pep 1320 H 06/05/25 20:36: POC Glucose 153 H 06/06/25 06:13: WBC 5.8, RBC 3.92 L, Hgb 11.8 L, Hct 36.5 L, MCV 93.1, MCH 30.1, MCHC 32.3, RDW 13.3, Plt Count 142, MPV 9.9, Neut % (Auto) 44.7, Lymph % (Auto) 35.7, [place] % (Auto) 12.9 H, Eos % (Auto) 5.0, Baso % (Auto) 1.0, Neut # (Auto) 2.6, Lymph # (Auto) 2.1, [place] # (Auto) 0.7, Eos # (Auto) 0.3, Baso # (Auto) 0.1, Sodium 136, Potassium 3.9, Chloride 98, Carbon Dioxide 32 H, Anion Gap 9.9, BUN 18, Creatinine 1.20, Estimated Creat Clear 69, Estimated GFR 57 L, Est GFR ( Amer) 69, Glucose 139 H, Calcium 8.0 L, Total Bilirubin 0.8, AST 28, ALT 25, Alkaline Phosphatase 57, C-Reactive Protein 78.1 H, Total Protein 5.5 L, Albumin 3.0 L, Globulin 2.5, Albumin/Globulin Ratio 1.2 06/06/25 06:14: POC Glucose 142 H 06/06/25 08:59: POC Glucose 145 H 06/06/25 12:27: POC Glucose 190 H I & O for Last 24 hours: Intake & Output 06/03/25 06/04/25 06/05/25 06/06/25 23:59 23:59 23:59 23:59 Intake Total 2113 / 2113 1120 / 1320 2019 200 / 200 Output Total 900 / 900 930 / 1130 745 / 895 2480 / 2480 Balance 1213 / 1213 190 / 190 1275 / 1125 -2280 / -2280 Weight 109.3 kg 111.312 kg 107.303 kg 109.769 kg Microbiology Reports for the Last 24 Hours: Microbiology 06/02/25 10:20 Blood Blood Culture - Preliminary NO GROWTH AFTER 4 DAYS 06/02/25 10:15 Blood Blood Culture - Preliminary NO GROWTH AFTER 4 DAYS Constitutional Constitutional: no acute distress and obese *Routine HEENT Exam Head: Present normocephalic Eye: Present EOMI and PERRL ENT: Present mucous membranes moist *Routine Neck Exam Neck: Present supple; Absent lymphadenopathy *Routine Respiratory Exam Respiratory: Present CTA bilaterally *Routine Cardiovascular Exam Cardiovascular: Present RRR *Routine Abdominal Exam Abdominal: Present soft and tenderness Comments: GRICELDA drain output with dark maroon liquid. Mild right upper quadrant tenderness to palpation. *Routine Extremities Exam Extremities: Absent cyanosis, clubbing or edema *Routine Skin Exam Skin: Present warm; Absent rash *Routine Neurological Exam Neurological: Present alert and oriented X3 Results Data Completed and Pending Labs on day of discharge: Labs from last 24 hours 06/06/25 06/06/25 06/06/25 12:27 08:59 06:14 WBC RBC Hgb Hct MCV MCH MCHC RDW Plt Count MPV Neut % (Auto) Lymph % (Auto) [place] % (Auto) Eos % (Auto) Baso % (Auto) Neut # (Auto) Lymph # (Auto) [place] # (Auto) Eos # (Auto) Baso # (Auto) Sodium Potassium Chloride Carbon Dioxide Anion Gap BUN Creatinine Estimated Creat Clear Estimated GFR Est GFR ( Amer) Glucose POC Glucose 190 H 145 H 142 H Calcium Total Bilirubin AST ALT Alkaline Phosphatase C-Reactive Protein NT-Pro-B Natriuret Pep Total Protein Albumin Globulin Albumin/Globulin Ratio 06/06/25 06/05/25 06/05/25 06:13 20:36 05:57 WBC 5.8 RBC 3.92 L Hgb 11.8 L Hct 36.5 L MCV 93.1 MCH 30.1 MCHC 32.3 RDW 13.3 Plt Count 142 MPV 9.9 Neut % (Auto) 44.7 Lymph % (Auto) 35.7 [place] % (Auto) 12.9 H Eos % (Auto) 5.0 Baso % (Auto) 1.0 Neut # (Auto) 2.6 Lymph # (Auto) 2.1 [place]urt # (Auto) 0.7 Eos # (Auto) 0.3 Baso # (Auto) 0.1 Sodium 136 Potassium 3.9 Chloride 98 Carbon Dioxide 32 H Anion Gap 9.9 BUN 18 Creatinine 1.20 Estimated Creat Clear 69 Estimated GFR 57 L Est GFR ( Amer) 69 Glucose 139 H POC Glucose 153 H Calcium 8.0 L Total Bilirubin 0.8 AST 28 ALT 25 Alkaline Phosphatase 57 C-Reactive Protein 78.1 H NT-Pro-B Natriuret Pep 1320 H Total Protein 5.5 L Albumin 3.0 L Globulin 2.5 Albumin/Globulin Ratio 1.2 Preliminary micro results at discharge 06/02/25 10:20 Blood Culture - Preliminary Blood NO GROWTH AFTER 4 DAYS 06/02/25 10:15 Blood Culture - Preliminary Blood NO GROWTH AFTER 4 DAYS DS: Diagnosis Discharge Diagnosis (1) Sepsis: Status: Acute Code(s): A41.9 - Sepsis, unspecified organism Qualifiers: Sepsis acute organ dysfunction status: without acute organ dysfunction Sepsis type: sepsis due to unspecified organism Qualified Code(s): A41.9 - Sepsis, unspecified organism (2) Acute cholecystitis: Status: Acute Code(s): K81.0 - Acute cholecystitis (3) CHF (congestive heart failure): Status: Acute Code(s): I50.9 - Heart failure, unspecified Qualifiers: Heart failure chronicity: chronic Heart failure type: unspecified Qualified Code(s): I50.9 - Heart failure, unspecified (4) Atrial fibrillation: Status: Acute Code(s): I48.91 - Unspecified atrial fibrillation Qualifiers: Atrial fibrillation type: unspecified chronic Qualified Code(s): I48.20 - Chronic atrial fibrillation, unspecified (5) T2DM (type 2 diabetes mellitus): Status: Acute Code(s): E11.9 - Type 2 diabetes mellitus without complications Qualifiers: Diabetes mellitus complication status: without complication 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: without half-way use Qualified Code(s): E11.9 - Type 2 diabetes mellitus without complications (6) Chronic anticoagulation: Status: Acute Code(s): Z79.01 - [facility] (current) use of anticoagulants (7) Hypomagnesemia: Status: Acute Code(s): E83.42 - Hypomagnesemia Meds Home Medications and Allergies Home Medications ?Medication ?Instructions ?Recorded ?Confirmed ?Type finasteride 5 mg tablet 5 mg PO DAILY 05/12/21 06/02/25 History metformin 1,000 mg tablet 1,000 mg PO BIDWMEAL 05/12/21 06/02/25 History tamsulosin 0.4 mg capsule 0.4 mg PO HS 03/26/22 06/02/25 History rivaroxaban 20 mg tablet 20 mg PO QPMWITHMEAL 04/27/22 06/02/25 History esomeprazole magnesium 40 mg 40 mg PO DAILY 12/05/22 06/02/25 History capsule,delayed release insulin degludec 100 unit/mL (3 28 unit SQ DAILY 12/05/22 06/02/25 History mL) subcutaneous pen (Tresiba FlexTouch U-100 insulin) midodrine 5 mg tablet 10 mg PO TID 12/05/22 06/02/25 History ferrous sulfate 325 mg (65 mg 325 mg PO DAILY 11/27/23 06/02/25 History iron) tablet (FeroSul) alprazolam 0.5 mg tablet 0.5 mg PO BIDP PRN Anxiety 10 days 11/29/23 06/02/25 Rx #20 tabs gabapentin 400 mg capsule 400 mg PO BID 06/02/25 06/02/25 History memantine 5 mg tablet 5 mg PO BID 06/02/25 06/02/25 History oxycodone-acetaminophen 7.5 mg-325 1 tab PO Q6HP PRN Severe Pain 06/02/25 06/02/25 History mg tablet (Scale Score 7-10) potassium chloride 10 mEq 10 meq PO DAILY 06/02/25 06/02/25 History capsule,extended release triamcinolone acetonide 0.1 % 1 applic topical BID 06/02/25 06/02/25 History topical cream quetiapine 50 mg tablet 50 mg PO TID 06/03/25 06/03/25 History New Prescriptions to Start Prescriptions: Allergies Allergy/AdvReac Type Severity Reaction Status Date / Time No Known Allergies Allergy Verified 11/02/24 10:43 Discharge Plan Disposition Patient Disposition: Home, Self-Care Condition: Fair Discharge Order Discharge Orders: Discharge Order (Routine); Ordered 06/06/25 Ordered By: Joao Blood Follow up Plan Follow up with: Myke Wen MD [Staff Physician, General Surgery] - 06/11/25 9:00 am Courtney Almanza MD [Primary Care Provider, Medical] - 06/12/25 10:45 am Prescriptions/Medication Reconciliation: Continued tamsulosin 0.4 MG capsule 0.4 mg PO HS rivaroxaban 20 mg tablet 20 mg PO QPMWITHMEAL midodrine 5 mg tablet 10 mg PO TID esomeprazole magnesium 40 mg capsule,delayed release(DR/EC) 40 mg PO DAILY Patient Comments: TAKE 1 CAPSULE BY MOUTH ONCE DAILY insulin degludec [Tresiba FlexTouch U-100] 100 unit/mL (3 mL) insulin pen 28 unit SQ DAILY ferrous sulfate [FeroSul] 325 mg (65 mg iron) tablet 325 mg PO DAILY Patient Comments: TAKE 1 TABLET BY MOUTH ONCE DAILY alprazolam 0.5 mg tablet 0.5 mg PO BIDP PRN (Reason: Anxiety) 10 Days Qty: 20 0RF finasteride 5 MG tablet 5 mg PO DAILY potassium chloride 10 mEq capsule, extended release 10 meq PO DAILY Patient Comments: TAKE 1 CAPSULE BY MOUTH ONCE DAILY IN THE MORNING gabapentin 400 mg capsule 400 mg PO BID Patient Comments: TAKE 1 CAPSULE BY MOUTH TWICE DAILY triamcinolone acetonide 0.1 % cream 1 applic TOPICAL BID Patient Comments: APPLY A THIN LAYER TO THE AFFECTED AREA(S) BY TOPICAL ROUTE TWICE A DAY oxycodone-acetaminophen 7.5-325 mg tablet 1 tab PO Q6HP PRN (Reason: Severe Pain (Scale Score 7-10)) Patient Comments: TAKE 1 TABLET BY MOUTH EVERY 6 HOURS NEEDED FOR SEVERE PAIN memantine 5 mg tablet 5 mg PO BID Patient Comments: TAKE 1 TABLET BY MOUTH TWICE DAILY quetiapine 50 mg tablet 50 mg PO TID Patient Comments: TAKE ONE-HALF TABLET BY MOUTH UP TO THREE TIMES DAILY Held metformin 1,000 MG tablet 1,000 mg PO BIDWMEAL Hold Instructions: Resume on 06/09/25. Hold during postoperative period until Wednesday. Problem Reconciliation Problems Reviewed?: Yes Patient Discharge Instructions Patient Instructions: DI for Abdominal Pain in Adults, DI for Surgical Site Infection, Laparoscopic Cholecystectomy Surgery, Catheter-Associated Urinary Tract Infection Print Language: Pashto Providers Primary Care Provider: Courtney Almanza Admit Provider: Clemente Isabel Attending Provider: Clemente Isabel
--- NOTE | 2025-06-07 10:08 | SW/DCPLANNER ---
Spoke with patient's on the phone. Patient's stated that he is doing okay. Patient's stated that she is aware of his upcoming appointments. Patient's stated that she was able to get his new medicine picked up from clinic pharmacy. Patient stated that she has no concerns or questions at this time. Cliff Varela
[2025-06-07 16:17] LABS: POC Glucose,Bedside 241 gm/dL (70-110)
[2025-06-12 17:18] LABS: Bilirubin, Total Body Fluid 1.0 mg/dL (.)
== END 2025-06-06 15:33 | disposition home or self-care (01) | DRG 856 ==
LOC: ER 17:47 → 2ND 18:11 → ICU 06-04 13:52
PROVIDERS: Nurse Practitioner Acute Care; Student in an Organized Health Care Education/Training Program; Surgery; Admitting Provider Internal Medicine Adolescent Medicine; Emergency Provider Emergency Medicine; PCP Internal Medicine; Visit Provider Internal Medicine Adolescent Medicine
PROC: 0FT44ZZ Resection of Gallbladder, Percutaneous Endoscopic Approach (ICD-10-PCS; CPT 47563; principal; 2025-06-02 11:45)
DX: T81.43XA Infection following a procedure, organ and space surgical site, initial encounter (principal); A41.9 Sepsis, unspecified organism; K80.12 Calculus of gallbladder with acute and chronic cholecystitis without obstruction; E87.1 Hypo-osmolality and hyponatremia; I48.20 Chronic atrial fibrillation, unspecified; D62 Acute posthemorrhagic anemia; I50.22 Chronic systolic (congestive) heart failure; E83.42 Hypomagnesemia; K82.A1 Gangrene of gallbladder in cholecystitis; F03.90 Unspecified dementia, unspecified severity, without behavioral disturbance, psychotic disturbance, mood disturbance, and anxiety; E11.649 Type 2 diabetes mellitus with hypoglycemia without coma; N40.0 Benign prostatic hyperplasia without lower urinary tract symptoms; K59.00 Constipation, unspecified; M19.90 Unspecified osteoarthritis, unspecified site; E87.8 Other disorders of electrolyte and fluid balance, not elsewhere classified; Z96.651 Presence of right artificial knee joint; J44.9 Chronic obstructive pulmonary disease, unspecified; E66.9 Obesity, unspecified; T45.515A Adverse effect of anticoagulants, initial encounter; E11.65 Type 2 diabetes mellitus with hyperglycemia; F39 Unspecified mood [affective] disorder; F41.9 Anxiety disorder, unspecified; D50.9 Iron deficiency anemia, unspecified; K21.9 Gastro-esophageal reflux disease without esophagitis; I95.9 Hypotension, unspecified; G89.18 Other acute postprocedural pain; M17.0 Bilateral primary osteoarthritis of knee; Y83.6 Removal of other organ (partial) (total) as the cause of abnormal reaction of the patient, or of later complication, without mention of misadventure at the time of the procedure; Z87.891 Personal history of nicotine dependence; Z68.33 Body mass index [BMI] 33.0-33.9, adult; Z79.01 Long term (current) use of anticoagulants; Z79.4 Long term (current) use of insulin; Z79.84 Long term (current) use of oral hypoglycemic drugs; Z79.899 Other long term (current) drug therapy
CPT/HCPCS: 36415; 71045; 74176; 74177; 78226; 80053; 81001; 82247; 82803; 82947; 82962; 83605; 83690; 83735; 83880; 85007; 85014; 85018; 85025; 86140; 86850; 87040; 87070; 88304; 93005; 97162; 97165; 97530; 99285; A9537; J0131; J0665; J1100; J1650; J1938; J2003; J2270; J2371; J2405; J2543; J2550; J2704; J3010; J3475; J7042; J7120; Q9967

== ENCOUNTER 2025-06-09 21:24 | Inpatient (IN) | payer MEDICARE, SELFPAY ==
--- OUTSIDE RECORDS SUMMARY | 2024-11-18 17:30 | XMS_ITS ---
Author Organization [facility] Address [address] [place] [address] Care Team Providers Care Bulb Farmworker Name Role Phone Jeremie Schneider Primary Care Provider [phone] Migration, Provider Unavailable Unavailable REASON FOR VISIT [facility] To [facility] Conversion Encounter Medications Medication SIG (Take, Route, [...] [address] [place], [place] [address] 11/18/2024 Provider Migration Plan Of Treatment No Information Progress Notes * Boubacar SOTODOB:1940 (85 yo M)Acc No.[id number]:11/18/2024 Patient: Boubacar HOBSON Provider: Philly Torres :1940 A ge:84 Y S ex:Male Date:11/18/2024 Address:[address] [place] [address] [facility] Pcp:Jeremie Schneider Subjective: * Chief Complaints: * [...] Electronic signature of Prov ider Migration on 06/09/2025 at 09:35 PM EDT Sign off status: Pending * Provider: Philly Torres Date: 0 11/18/2024 Generated for Eliel love/Mani/Minerva on: 1 09:35 PM EDT
--- OUTSIDE RECORDS SUMMARY | 2024-11-18 17:30 | XMS_ITS ---
Author Organization [facility] Address [address] [place] [address] Care Team Providers Care Collateral Clerk Name Role Phone Jeremie Schneider Primary Care Provider Migration, Provider Unavailable Unavailable REASON FOR VISIT [facility] To [facility] Conversion Encounter Medications Medication SIG (Take, Route, [...] [address] [place], [place] [address] 11/18/2024 Provider Migration Plan Of Treatment No Information Progress Notes * Boubacar SOTODOB:1940 (85 yo M)Acc No.[id number]:11/18/2024 Patient: Boubacar HOBSON Provider: Philly Torres :1940 A ge:84 Y S ex:Male Date:11/18/2024 Address:[address] [place] [address] [facility] Pcp:Jeremie Schneider Subjective: * Chief Complaints: * [...] Electronic signature of Prov ider Migration on 06/11/2025 at 04:19 PM EDT Sign off status: Pending * Provider: Philly Torres Date: 0 11/18/2024 Generated for Eliel love/Mani/Minerva on: 1 04:19 PM EDT
[2025-06-09] VITALS (11 sets, daily range): BP systolic 98–118; BP diastolic 48–70; PULSE 83–115; RESP 14–24; TEMP 36.7; O2SAT 94–98; BMI 36.3
--- OUTSIDE RECORDS SUMMARY | 2025-06-09 21:34 | XMS_ITS | Clinical Summary ---
Author Organization [facility] Address [address] [place] [id number] Care Team Providers Care Clothing Worker Name Role Phone Unknown, Attending Provider [...] therelease of HIV test results or diagnoses. [id number] Allergies No known active allergies Medications [...] MD LAB BLOOD ORDERABLES Final Resul t [facility] [address] [place] [address], [facility] from Last 3 Months or Most Recently Relevant to Health Maintenance Insurance [place] [employer] Advance Directives For more information, please contact: [phone] * Full Code (Latest Code Status on File) Date Activated Date Inactivated Comments 06/26/2022 11:06 PM 06/30/2022 7:56 PM Care Teams Clothing Worker Relationship Specialty Start Date End Date Unknown, Attending Provider PCP - General 06/26/22
--- OUTSIDE RECORDS SUMMARY | 2025-06-09 21:34 | XMS_ITS | Referral Summary ---
Author Organization [employer] [facility] ([place], [place], [place], [place]) Address [address] [place] [address] Care Team Providers Care Strip Stamp Straightener Name Role Phone Chaparro Almanza MD Primary Care Provider [phone] Allergies No known active allergies Medications ALPRAZolam [...] the past 12 months, has t he [employer], gas, oil, or water [employer] threatened to shut off services in your [...] Do you speak a language other than Filipino at [facility]? No 12/29/2023 Do you want help [...] Plan of Treatment Not on file Insurance [facility] [employer] MED[employer] ACCESS HMO MAP Advance Directives For more information, please contact: [phone] * Full Code (Latest Code Status on File) Date Activated Date Inactivated Comments 12/29/2023 6:25 PM 01/02/2024 1:11 PM Care Teams Strip Stamp Straightener Relationship Specialty Start Date End Date Chaparro Almanza MD [address] [facility] [address] [place] [address] PCP - General General Internal Medicine 12/29/23
--- OUTSIDE RECORDS SUMMARY | 2025-06-09 21:34 | XMS_ITS | Patient Health Record ---
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 Name Role Phone Jeremie Schneider Primary [...] Status W/U Status Risk Notes Problem Diverticulitis (61300003) Diverticulitis (K57.92) Active confirmed Problem Type II diabetes mellitus without complication (807266701) Controlled type 2 diabetes mellitus without complication, without long-term current use of insulin (E11.9) Active confirmed Problem Diverticulitis of colon (980549433) Diverticulitis of intestine without perforation or abscess without bleeding, unspecified part of intestinal tract (K57.92) Active confirmed Encounters Encounter Location Date Provider Diagnosis [facility] [address] [place] [id number] 11/18/2024 Provider Migration Plan Of Treatment No Information Insurance Providers Payer Name Payer Address Payer Phone Subscriber Number Group Number Insured Name Patient Relationship to Insured Coverage Start Date Coverage End Date [employer] [address] [place] [address] [id number] Boubacar Baxter Self - patient is the insured Medical (General) History Medical History History ICD Code Diabetes Anxiety Arthritis Surgical History Surgery Date(Month/Year) removal of lung to clean/put back in 199 5 fractured ankles Hospitalization History Reason Date(Month/Year) removal of lung to clean/put back in 199 5 pneumonia 2020
--- OUTSIDE RECORDS SUMMARY | 2025-06-09 21:34 | XMS_ITS | Clinical Summary ---
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
--- OUTSIDE RECORDS SUMMARY | 2025-06-09 21:35 | XMS_ITS | Data Portability ---
Author Organization [place] [facility] Waters LINDSAY CLOSED Address [address] [facility] [address] [place] [address] Care Team Providers Care Line Walker Name Role Phone BEKAH ALMANZA Primary Care Provider [phone] MAURILIO DAVILA Neurologist Assessment Encounter Date Assessment [...] in 1 month for Medicare wellness visit [email or web address] Not available 12/24/2024 22:46:27 02/15/2025 02/15/2025 1. [...] Rate controlled. 13. RTC in 2 months [email or web address] Not available 02/18/2025 21:14:29 03/07/2025 03/07/2025 1. [...] 3 times daily. 10. RTC in 6-week [email or web address] Not available 03/08/2025 07:17:55 04/18/2025 04/18/2025 1. [...] have high-dose flu shot at that time [email or web address] Not available 04/18/2025 22:19:34 Plan of Treatment Reminders Order Date Submit Date Provider Last Modified By Organization Details Last Modified Time Details Appointments RECHECK 2024 10:45A M BEKAH ALMANAZ MD Not available Not available Not available NEUROLOGY RECHECK 2024 10:30A Santos DAVILA DO Not available Not available Not available Lab lyme disease igg+igm, serum, reflex western blot 2024 025 [facility], [address] [place] [address], [id number], 04/20/2025 15:13:21 ESR (erythroc yte sedimenta tion rate), blood 2024 025 [facility], [address] [place] [address], [phone], 04/18/2025 20:12:08 CMP, serum or plasma 2024 025 [facility], [address] [place] [address], [address], 02/15/2025 19:18:27 glycohemo globin, total, blood 2024 025 [facility], [address] [place] [address], [address], 02/15/2025 19:31:34 CMP, serum or plasma 2024 025 [facility], [address] [place] [address], [id number], 12/20/2024 20:05:16 glycohemo globin, total, blood 2024 025 [facility], [address] [place] [address], [address], 12/20/2024 19:56:20 Referral dermatolo gist referral - in 7-10 days 2024 025 [email or web address] Nicholas Thomas MD, [address] [place], [address], 05/30/2025 08:30:09 Procedures None recorded. Surgeries None recorded. Imaging MRI, brain, w/o contrast 2024 025 [facility] (Centralized Scheduling), [address] [place], [address], 02/28/2025 16:15:56 Medication Orders triamcino lone acetonide 0.1 % topical cream 2024 025 [facility], [address] [place], [address], 04/18/2025 12:13:02 memantine 5 mg tablet 2024 025 [facility], [address] [place], [address], 01/31/2025 15:04:24 Patient TargetsNo targets recorded. Patient InstructionsNo instructions recorded. Reason for Referral Web Site Administrator Referral for P ruritic rash in 7-10 days Referring Physician: Bekah Almanza, Internal Medicine, Encounter Date: 04/18/2025 Results Created Date Observation Date Name Description Value Unit Range Abnormal Flag Note LastModifiedBy Organization Detail LastModifiedTime 12/21/1912/20/2024 GLYCO HEMOG LOBIN A1C glyco HGB A1C 7.2 % 0.0-5. 6 high Not Available [facility] [address] [place] [address], [address], 12/20/2024 19:56:19 12/21/19 25 12/20/2024 GLYCO HEMOG LOBIN A1C estimated avg. glucose 160 mg/dL _(blanca c) normal A1c value s betwe en 5.7% to 6.4% indic ate predi abete s. Resul ts 6.5% or great er is diagn ostic of diabe analia. Ameri can Diabe analia Assoc iatio n (diab etes. org) Not Available [facility] [address] [place] [address], [address], 12/20/2024 19:56:19 12/21/1912/20/2024 COMP. METAB OLIC PANEL glucose 158 mg/dL 74-100 high Not Available [facility] [address] [place] [address], [address], 12/20/2024 20:05:16 12/21/19 25 12/20/2024 COMP. METAB OLIC PANEL blood urea nitrogen 29 mg/dL 6-20 high Not Available [facility] [address] [place] [address], [address], 12/20/2024 20:05:16 12/21/19 25 12/20/2024 COMP. METAB OLIC PANEL creatinine 1.56 mg/dL 0.70-1 .20 high Not Available [facility] [address] [place] [address], [address], 12/20/2024 20:05:16 12/21/19 25 12/20/2024 COMP. METAB OLIC PANEL BUN/creatini ne ratio 19 (calc ) 10-20 normal Not Available [facility] [address] [place] [address], [address], 12/20/2024 20:05:16 12/21/19 25 12/20/2024 COMP. METAB OLIC PANEL sodium 141 mmol/ L 136-14 5 normal Not Available [facility] [address] [place] [address], [address], 12/20/2024 20:05:16 12/21/19 25 12/20/2024 COMP. METAB OLIC PANEL potassium 4.1 mmol/ L 3.4-5. 0 normal Not Available [facility] [address] [place] [address], [address], 12/20/2024 20:05:16 12/21/19 25 12/20/2024 COMP. METAB OLIC PANEL chloride 99 mmol/ L 98-107 normal Not Available [facility] [address] [place] [address], [address], 12/20/2024 20:05:16 12/21/19 25 12/20/2024 COMP. METAB OLIC PANEL carbon dioxide 24 mmol/ L 22-31 normal Not Available [facility] [address] [place] [address], [address], 12/20/2024 20:05:16 12/21/19 25 12/20/2024 COMP. METAB OLIC PANEL anion gap 18 (calc ) 7-25 normal Not Available [facility] [address] [place] [address], [address], 12/20/2024 20:05:16 12/21/19 25 12/20/2024 COMP. METAB OLIC PANEL calcium 9.4 mg/dL 8.6-10 .2 normal Not Available [facility] [address] [place] [address], [address], 12/20/2024 20:05:16 12/21/19 25 12/20/2024 COMP. METAB OLIC PANEL total protein 7.2 g/dL 6.4-8. 3 normal Not Available [facility] [address] [place] [address], [address], 12/20/2024 20:05:16 12/21/19 25 12/20/2024 COMP. METAB OLIC PANEL albumin 4.3 g/dL 3.5-5. 2 normal Not Available [facility] [address] [place] [address], [address], 12/20/2024 20:05:16 12/21/19 25 12/20/2024 COMP. METAB OLIC PANEL globulin 2.9 1.5-4. 5 normal Not Available [facility] [address] [place] [address], [address], 12/20/2024 20:05:16 12/21/19 25 12/20/2024 COMP. METAB OLIC PANEL albumin/glob ulin ratio 1.5 (calc ) 1.1-2. 5 normal Not Available [facility] [address] [place] [address], [address], 12/20/2024 20:05:16 12/21/19 25 12/20/2024 COMP. METAB OLIC PANEL bilirubin, total 0.8 mg/dL 0.1-1. 2 normal Not Available [facility] [address] [place] [address], [address], 12/20/2024 20:05:16 12/21/19 25 12/20/2024 COMP. METAB OLIC PANEL alkaline phosphatase 59 U/L 40-129 normal Not Available [facility] [address] [place] [address], [address], 12/20/2024 20:05:16 12/21/19 25 12/20/2024 COMP. METAB OLIC PANEL AST 16 U/L 0-40 normal Not Available [facility] [address] [place] [address], [address], 12/20/2024 20:05:16 12/21/19 25 12/20/2024 COMP. METAB OLIC PANEL ALT 12 U/L 0-41 normal Not Available [facility] [address] [place] [address], [address], 12/20/2024 20:05:16 12/21/19 25 12/20/2024 COMP. METAB [...] s/KDO QI/gf r_cal culat orPed Not Available [facility] [address] [place] [address], [address], 12/20/2024 20:05:16 02/16/20 25 02/15/2025 COMP. METAB OLIC PANEL glucose 128 mg/dL 74-100 high Not Available [facility] [address] [place] [address], [address], 02/15/2025 19:18:27 02/16/20 25 02/15/2025 COMP. METAB OLIC PANEL blood urea nitrogen 21 mg/dL 6-20 high Not Available [facility] [address] [place] [address], [address], 02/15/2025 19:18:27 02/16/20 25 02/15/2025 COMP. METAB OLIC PANEL creatinine 1.16 mg/dL 0.70-1 .20 normal Not Available [facility] [address] [place] [address], [address], 02/15/2025 19:18:27 02/16/20 25 02/15/2025 COMP. METAB OLIC PANEL BUN/creatini ne ratio 18 (calc ) 10-20 normal Not Available [facility] [address] [place] [address], [address], 02/15/2025 19:18:27 02/16/20 25 02/15/2025 COMP. METAB OLIC PANEL sodium 139 mmol/ L 136-14 5 normal Not Available [facility] [address] [place] [address], [address], 02/15/2025 19:18:27 02/16/20 25 02/15/2025 COMP. METAB OLIC PANEL potassium 4.4 mmol/ L 3.4-5. 0 normal Not Available [facility] [address] [place] [address], [address], 02/15/2025 19:18:27 02/16/20 25 02/15/2025 COMP. METAB OLIC PANEL chloride 99 mmol/ L 98-107 normal Not Available [facility] [address] [place] [address], [address], 02/15/2025 19:18:27 02/16/20 25 02/15/2025 COMP. METAB OLIC PANEL carbon dioxide 24 mmol/ L 22-31 normal Not Available [facility] [address] [place] [address], [address], 02/15/2025 19:18:27 02/16/20 25 02/15/2025 COMP. METAB OLIC PANEL anion gap 16 (calc ) 7-25 normal Not Available [facility] [address] [place] [address], [address], 02/15/2025 19:18:27 02/16/20 25 02/15/2025 COMP. METAB OLIC PANEL calcium 9.6 mg/dL 8.6-10 .2 normal Not Available [facility] [address] [place] [address], [address], 02/15/2025 19:18:27 02/16/20 25 02/15/2025 COMP. METAB OLIC PANEL total protein 6.9 g/dL 6.4-8. 3 normal Not Available [facility] [address] [place] [address], [address], 02/15/2025 19:18:27 02/16/20 25 02/15/2025 COMP. METAB OLIC PANEL albumin 4.2 g/dL 3.5-5. 2 normal Not Available [facility] [address] [place] [address], [address], 02/15/2025 19:18:27 02/16/20 25 02/15/2025 COMP. METAB OLIC PANEL globulin 2.7 1.5-4. 5 normal Not Available [facility] [address] [place] [address], [address], 02/15/2025 19:18:27 02/16/20 25 02/15/2025 COMP. METAB OLIC PANEL albumin/glob ulin ratio 1.6 (calc ) 1.1-2. 5 normal Not Available [facility] [address] [place] [address], [address], 02/15/2025 19:18:27 02/16/20 25 02/15/2025 COMP. METAB OLIC PANEL bilirubin, total 0.6 mg/dL 0.1-1. 2 normal Not Available [facility] [address] [place] [address], [address], 02/15/2025 19:18:27 02/16/20 25 02/15/2025 COMP. METAB OLIC PANEL alkaline phosphatase 56 U/L 40-129 normal Not Available [facility] [address] [place] [address], [address], 02/15/2025 19:18:27 02/16/20 25 02/15/2025 COMP. METAB OLIC PANEL AST 14 U/L 0-40 normal Not Available [facility] [address] [place] [address], [address], 02/15/2025 19:18:27 02/16/20 25 02/15/2025 COMP. METAB OLIC PANEL ALT 12 U/L 0-41 normal Not Available [facility] [address] [place], [address], 02/15/2025 19:18:27 02/16/20 25 02/15/2025 COMP. METAB [...] s/KDO QI/gf r_cal culat orPed Not Available [facility] [address] [place], [address], 02/15/2025 19:18:27 02/16/20 25 02/15/2025 GLYCO HEMOG LOBIN A1C glyco HGB A1C 6.4 % 0.0-5. 6 high Not Available [facility] [address] [place], [address], 02/15/2025 19:31:34 02/16/20 25 02/15/2025 GLYCO HEMOG LOBIN A1C estimated avg. glucose 137 mg/dL _(blanca c) normal A1c value s betwe en 5.7% to 6.4% indic ate predi abete s. Resul ts 6.5% or great er is diagn ostic of diabe analia. Ameri can Diabe analia Assoc iatio n (diab etes. org) Not Available [facility] [address] [place], [address], 02/15/2025 19:31:34 04/18/20 25 04/18/2025 ESR, AUTOM ATED ESR, automated 1 mm 0-19 normal Not Available [facility] [address] [place], [address], 04/18/2025 20:12:08 04/18/20 25 04/20/2025 LYME AB [...] be inter prete d as truly posit natalei until verif ied as such using a suppl ement al assay (e.g. , B. burgd orfer i blot) . The scree sarmad test and/o r blot for B. burgd orfer i antib odies may be false ly negat natalie in early stage s of Lyme disea se, inclu ding the perio d when eryth jamil migra ns is appar ent. Not Available [facility] [address] [place], [address], 04/20/2025 15:13:21 11/25/19 25 11/24/2024 US, echoc ardio gram, trans thora cic, compl ete, w/ color flow No observ ation record ed. [facility] [address], [place], [address], 12/01/2024 14:19:56 02/29/20 25 2025 MRI, brain , w/o contr ast No observ ation record ed. [email or web address] [address] [facility], [place], [address], 02/28/2025 17:34:03 06/01/20 25 06/01/2025 elect lambert springgr am, routi ne ECG, 12 leads min No observ ation record ed. [address], [place], [address], 06/04/2025 09:28:44 06/01/2006/01/2025 CT, abdom en + pelvi s, w/o contr ast No observ ation record ed. [place] [id number] Not Available 06/04 09:28:30 06/02/2006/02/2025 CT, abdom en + pelvi s, w/o contr ast No observ ation record ed. [address], [place], [address], 06/05/2025 12:54:11 06/02/2006/02/2025 clara nuous exter nal ECG monit oring , more than 48 hours up to 7 days No observ ation record ed. [email or web address] [id number] Not Available 06/05 12:54:30 06/06/2006/06/2025 XR, chest No observ ation record ed. [address] (X-Ray) [address], [place], [address], 06/07/2025 14:01:21 06/06/2006/06/2025 NM, hepat obili taryn scan No observ ation record ed. [address], [place], [address], 06/07/2025 14:01:05 Result Notes None recorded. Problems Name Problem SNOMED Code Status Onset Date Resolution Date Notes Provider Name and Address Organization Details Recorded Time Chronic ki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 2 diabetes mellitus 639158012912 Active Not Available [employer] 06:45:56 Neuropathy due to type 2 diabetes mellitus 7643035249705 06 Active Not Available [employer] 4 06:46:25 Hypercoagu lability state 24623366 Active Not Available [employer] 4 06:46:31 Uncontroll ed type 2 diabetes mellitus 873320753 Active Not Available [employer] 4 06:33:25 Severe recurrent major depression without psychotic features 87606873 Active Not Available [employer] 5 21:04:25 Benign prostatic hyperplasi a with outflow obstructio n 702336181 Active 2022 BEKAH ALMANZA MD [address] [place] [address], [address] , [facility] 3 15:01:56 Bilateral osteoarthr itis of knees 2873032703379 07 Active 2022 BEKAH ALMANZA MD [address] [place] [address], [address] , [facility] 3 15:01:59 Chronic atrial fibrillati on 907039820 Active 2022 BEKAH ALMANZA MD [address] [place] [address], [address] , [facility] 3 15:02:00 Chronic kidney disease stage 3 580690746 Active 2022 BEKAH ALMANZA MD [address] [place] [address], [address] , [facility] 3 15:02:04 Chronic obstructiv e pulmonary disease 23807041 Active 2022 BEKAH ALMANZA MD [address] [place] [address], [address] , [facility] 3 15:02:06 Chronic systolic heart failure 057556039 Active 2022 BEKAH ALMANZA MD [address] [place] [address], [address] , [facility] 3 15:02:07 Generalize d anxiety disorder 93893255 Active 2022 BEKAH ALMANZA MD [address] [place] [address], [address] , [facility] 3 15:02:09 Obesity 432096386 Active 2022 BEKAH ALMANZA MD [address] [place] [address], [address] , [facility] 3 15:02:11 Moderate dementia 6299659766371 00 Active 2022 BEKAH ALMANZA MD [address] [place] [address], [address] , [facility] 3 15:02:13 Peripheral neuropathy due to type 2 diabetes mellitus 4496313777952 Active 2022 BEKAH ALMANZA MD [address] [place] [address], [address] , [facility] 3 15:02:15 Renal disorder due to type 2 diabetes mellitus 215658203 Active 2022 BEKAH ALMANZA MD [address] [place] [address], [address] , [facility] 3 15:02:18 Aneurysm of thoracic aorta 587027006 Active 2022 BEKAH ALMANZA MD [address] [place] [address], [address] , [facility] 3 15:02:20 Vitamin B12 deficiency (non anemic) 96904856 Active 2022 BEKAH ALMANZA MD [address] [place] [address], [address] , [facility] 3 15:02:22 History of deep vein thrombosis 100241808 Active 2022 BEKAH ALMANZA MD [address] [place] [address], [address] , [facility] 3 18:35:02 Anemia 155740273 Active 2022 BEKAH ALMANZA MD [address] [place] [address], [address] , [facility] 3 18:35:11 Type 2 diabetes mellitus 24752941 Active 2022 BEKAH ALMANZA MD [address] [place] [address], [address] , [facility] 3 15:05:34 Pain of bilateral knee joints 6626013938780 04 Active 2022 BEKAH ALMANZA MD [address] [place] [address], [address] , [facility] 3 15:05:46 Ophthalmic examinatio n and evaluation Active 2022 BEKAH ALMANZA MD [address] [place] [address], [address] , [facility] 3 15:06:26 Dementia 11798482 Active 2023 BEKAH ALMANZA MD [address] [place] [address], [address] , [facility] 4 06:56:51 Nausea and vomiting 84500105 Active 2023 BEKAH ALMANZA MD [address] [place] [address], [address] , [facility] 4 21:27:40 Administra tion of viral vaccine Active 2023 BEKAH ALMANZA MD [address] [place] [address], [address] , [facility] 4 06:43:44 Hyperglyce isabela due to type 2 diabetes mellitus 6764046558479 09 Active 2023 BEKAH ALMANZA MD [address] [place] [address], [address] , [facility] 4 13:25:23 Atrial fibrillati on 37720421 Active 2023 BEKAH ALMANZA MD [address] [place] [address], [address] , [facility] 4 13:26:04 Recurrent urinary tract infection 073289645 Active 2023 BEKAH ALMANZA MD [address] [place] [address], [address] , [facility] 4 13:26:26 Onychomyco sis 647950270 Active 2023 BEKAH ALMANZA MD [address] [place] [address], [address] , [facility] 4 13:26:27 Mood swings 92643524 Active 2023 BEKAH ALMANZA MD [address] [place] [address], [address] , [facility] 4 13:26:29 Administra tion of influenza vaccine Active 2023 BEKAH ALMANZA MD [address] [place] [address], [address] , [facility] 4 23:29:03 Pain of left shoulder joint 4596570161026 9109 Active 2024 BEKAH ALMANZA MD [address] [place] [address], [address] [facility] 5 06:55:13 Disorder of nervous system due to type 2 diabetes mellitus 111852161 Active 2024 BEKAH ALMANZA MD [address] [place] [address], [address] , [facility] 5 06:55:19 Senile dementia 40102208 Active 2024 MAURILIO DAVILA DO [address] [place] [address], [address] , [facility] 5 14:59:33 Pruritic rash 25332544 Active 2024 BEKAH ALMANZA MD [address] [place] [address], [address] [facility] 5 22:19:34 Problem Notes Documentation Provider Name and Address Organization Details Recorded Time Neurologist Consult Note : [address] [address]ORPONVM, Garry (id #[id number], : 1940) [address] [address] Encounter Summary - Progress Note Date Printed: [...] received this fax in error, please visit [email or web address] to notify the sender and confirm that the information will be destroyed. If you do not have internet access, please call to notify the sender and confirm that the information will be destroyed. Thank you for your attention and cooperation. [ID:[id number]] Patient Boubacar Baxter (84yo, M) #[id number] 1940 Patient Demographics: Address [address] [place] [address] Encounter Notes: Encounter Reason/DateTransition of Care Encounter memory problem 01/31/2025 - 01:45PM - NEUROLOGY 1207 SB History of Present [id number] y/o right handed male here for neurologic [...] 02:23 pm Wt: Not Performed - Not [email or web address]/18/2025 02:23 pm BP: 114/70 sitting L arm01/31/2025 [...] days. Qty: (60) tablet Refills: 2 Pharmacy: [facility] MRI, BRAIN, W/O CONTRAST Height (ft.): [address] [facility] Procedure code: 93406 Return to Office to see MAURILIO DAVILA DO for NEUROLOGY RECHECK at NEUROLOGY 1207 on or around 05/03/2025 MAURILIO DAVILA DO for NEUROLOGY RECHECK at NEUROLOGY 1207 on 05/08/2025 at 02:30 PM Patient Medical History: Allergies List Reviewed Allergies NKDA Medications Reviewed Medications NameDate Source ALPRAZolam 0.5 mg tabletTAKE 1 TABLET BY MOUTH TWICE DAILY NEEDED FOR KSPWBZD31/10/25 filled surescripts BD Ultra-Fine Short Pen Needle 31 gauge x 5/16 USE 1 ONCE DAILY09/01/24 filled surescripts esomeprazole magnesium 40 mg capsule,delayed releaseTAKE 1 CAPSULE BY MOUTH ONCE DAILY12/06/24 filled surescripts finasteride 5 mg tabletTAKE 1 TABLET BY MOUTH ONCE DAILY12/13/24 filled surescripts furosemide 20 mg tabletTAKE 1 TABLET BY MOUTH ONCE DAILY IN THE ZGIACVH41/03/25 filled surescripts gabapentin 400 mg capsuleTAKE 1 [...] CAPSULE BY MOUTH ONCE DAILY IN THE ZBBYNEG46/03/25 filled surescripts promethazine 25 mg tabletTake 0.5 [...] Vaccines Vaccine Type Date Amt. Route Site [facility] Lot # Mfr. Exp. 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 COVID-19 COVID-19, mRNA, LNP-S, PF, 30 mcg/0.3 mL dose, alma-sucrose ([employer]) 12/29/21 0.3 mL Intramuscular [id number] [employer], [employer] 01/30/22 COVID-19, mRNA, LNP-S, PF, 30 mcg/0.3 mL dose ([employer]) 05/24/21 0.3 mL Intramuscular [id number] [employer], [employer] 07/15/21 COVID-19, mRNA, LNP-S, PF, 30 mcg/0.3 mL dose ([employer]) 10/15/20 0.3 mL Intramuscular [id number] [employer], [employer] 02/12/21 COVID-19, mRNA, LNP-S, PF, 30 mcg/0.3 mL dose ([employer]) 09/20/20 0.3 mL Intramuscular [id number] [employer], [employer] 01/12/21 Influenza influenza, high dose seasonal 10/02/24 0.5 mL Intramuscular [id number] [employer] 02/12/25 influenza, high dose seasonal 06/08/24 0.5 mL Intramuscular Deltoid, Right [id number] [employer] 02/12/25 Inactivated Influenza 03/21/2021 06/08/24 Luz Ortega influenza, high-dose, quadrivalent 05/14/23 0.7 mL Intramuscular Deltoid, Left [id number] [employer] 02/13/24 Inactivated Influenza 03/21/2021 05/14/23 Radha Perez influenza, high dose seasonal 05/13/16 0.5 mL Intramuscular [id number] [employer] 12/21/16 Pneumococcal pneumococcal conjugate PCV 13 03/09/17 0.5 mL Intramuscular [id number] [employer] 12/13/17 Zoster zoster recombinant 01/19/24 0.5 mL Intramuscular Deltoid, Right [id number] [employer] 01/27/26 Recombinant Zoster 09/19/2021 01/19/24 Luz Ortega Electronically Signed by: MAURILIO DAVILA, DO BEKAH MARISSA DALTON, MD [address] [place], [address], [facility] 02/01/2025 22:44:02 Procedures Surgical History Date Name Laterality Status Provider Name and Address Organization Details Recorded Time 04/13/20 24 Social Determinants of Health completed DONAVON PEDROZA MD [address] [place], [address], [facility] 04/13/2024 15:40:11 04/04/20 24 TCM completed Rosio Reilly [facility] 03/31/2024 10:46:40 11/15/19 24 operation on bone injury of femur completed Jenniegreyson Tobar [facility] 01/31/2025 14:38:06 08/16/19 21 operation on lung completed Jennie Tobar [facility] 01/31/2025 14:37:15 operation on hip joint completed Aishwarya Rodriguez [facility] 12/17/2023 14:16:02 Imaging Results None recorded. Procedure [...] DAYS. 01/31 completed not on med list (02/01/20 25) Not Available Not Available Not Available alprazola [...] Not Available gabapenti n 400 mg capsule TAKE 1 CAPSULE BY MOUTH TWICE DAILY active Not Available Not Available No t Available midodrine 5 mg tablet TAKE 2 TABLETS [...] Not Available alprazola m 0.5 mg tablet TAKE 1 TABLET BY MOUTH TWICE DAILY NEEDED FOR ANXIETY active Not Available Not Available No t Available citalopra m 20 mg tablet TAKE 1 [...] hr 01/31 completed not on med list (02/01/20 25) Not Available Not Available Not Available levofloxa lilo 500 mg tablet 01/19 completed Not Available Not Available Not Available oxycodone -acetamin ophen 7.5 mg-325 mg tablet TAKE 1 TABLET BY MOUTH EVERY 6 HOURS NEEDED FOR SEVERE PAIN active Not Available Not Available No t Available cefdinir 300 mg capsule TAKE 1 CAPSULE [...] Available Not Available memantine 5 mg tablet TAKE 1 TABLET BY MOUTH TWICE DAILY active Not Available Not Available No t Available gabapenti n 400 mg tablet Take 1 [...] tablet Not Available Not Available Not Available quetiapin e 50 mg tablet TAKE [...] DAY 01/31 completed not on med list (02/01/20 25) Not Available Not Available Not Available Xarelto 20 mg tablet TAKE 1 TABLET [...] completed Not Available Not Available Not Available Ultra-Fin e Pen Needle 31 gauge x 12/29 USE 1 PEN NEEDLE SUBCUTAN EOUSLY ONCE DAILY active Not Available Not Available No t Available Vitals Date Recorded Body height Body mass index (BMI) Body weight Oxygen saturation Oxygen saturation in Arterial blood by Pulse oximetry Heart rate Systolic And Diastolic Provider Name and Address Organization Details Last Updated DateTime 5 177.8 cm 31.9 kg/m2 758179. 51 g 99 % 99 % 84 /min 136/72 mm[Hg] Radha Perez [facility] 5 10:49:00 Date Recorded Body height Heart rate Oxygen saturation Oxygen saturation in Arterial blood by Pulse oximetry Systolic And Diastolic Provider Name and Address Organization Details Last Updated DateTime 5 177.8 cm 84 /min 94 % 94 % 114/70 mm[Hg] Jennie Tobar [facility] 5 14:30:56 Date Recorded Body height Body mass index (BMI) Body weight Oxygen saturation Oxygen saturation in Arterial blood by Pulse oximetry Heart rate Systolic And Diastolic Provider Name and Address Organization Details Last Updated DateTime 5 177.8 cm 32.7 kg/m2 750753. 06 g 96 % 96 % 82 /min 120/78 mm[Hg] [facility] 10:[facility]14 Date Recorded Body height Body mass index (BMI) Body weight Oxygen saturation Oxygen saturation in Arterial blood by Pulse oximetry Heart rate Systolic And Diastolic Provider Name and Address Organization Details Last Updated DateTime 5 177.8 cm 32.7 kg/m2 750448. 06 g 96 % 96 % 84 /min 128/80 mm[Hg] [facility] 11:13:34 Date Recorded Body height Oxygen saturation Oxygen saturation in Arterial blood by Pulse oximetry Heart rate Body mass index (BMI) Body weight Systolic And Diastolic Provider Name and Address Organization Details Last Updated DateTime 5 177.8 cm 97 % 97 % 90 /min 33 kg/m2 160362. 25 g 132/76 mm[Hg] [facility] 11:08:20 Social History Question Answer Notes LastModified by [employer] Details LastModified Time Tobacco Smoking Status [facility] 15:42:37 What Is The Highest Grade Or Level Of School You Have Completed Or The Highest Degree You Have Received? [id number] Information not available 01/31/2025 When Did You Quit Smoking? 6-10yearssin celastcigare tte Information not available 01/19/2024 What Was The Date Of Your Most Recent Tobacco Screening? 06/07/2024 Information not available 06/07/2024 What Is Your Relationship Status? Information not available 01/31/2025 Has Tobacco Cessation Counseling Been Provided? No Information not available 05/14/2023 Sex: Unknown Functional Status Question Answer Note LastModified by [employer] Details LastModified Time Do you use any [...] mcg/0.3 mL dose 1 completed Jasmin Ray [facility] 12/17/2023 14:03:42 COVID-19, mRNA, LNP-S, PF, 30 mcg/0.3 mL dose 1 completed Jasmin Ray [facility] 12/17/2023 14:03:42 COVID-19, mRNA, LNP-S, PF, 30 mcg/0.3 mL dose 1 completed Jasmin Ray [facility] 12/17/2023 14:03:42 COVID-19, mRNA, LNP-S, PF, 30 mcg/0.3 mL dose, alma-sucrose 2 completed Jasmin Ray [facility] 12/17/2023 14:03:42 Pneumococcal conjugate PCV 13 7 completed Jasmin Madden [facility] 12/17/2023 14:03:42 Influenza, high-dose, trivalent, PF 6 completed Jasmin Madden [facility] 12/17/2023 14:03:42 Influenza, high-dose, trivalent, PF 5 completed Cookie Mari [facility] 01/12/2025 14:14:39 Influenza, high-dose, quadrivalent, PF 3 completed BEKAH ALMANZA MD [address] [place] [address], [phone], [facility] 05/16/2023 21:27:46 zoster recombinant 4 completed BEKAH ALMANZA MD [address] [place] [address], [phone], [facility] 01/20/2024 06:33:46 Influenza, high-dose, trivalent, PF 4 completed Luz Ortega [facility] 06/08/2024 11:58:43 Past Encounters Encounter ID Performer Location Encounter Start Date Encounter Closed Date Diagnosis/Indication Diagnosis SNOMED-CT Code Diagnosis ICD10 Code Diagnosis IMO Codes Diagnosis Note [id number] [facility] [address] 11/16/2016 14:59:38 11/16/2016 14:59:38 [id number] BEKAH ALMANZA MD [facility] [address] [place] [address] 05/14/2023 14:29:20 05/14/2023 15:15:33 Benign prostatic hyperplasia with outflow obstruction 292574516 N40.1 Bilateral osteoarthritis of knees 8718142791 98898 M17.0 Chronic at rial fibrillation 043963636 I48.20 Chronic ki dney disease stage 3 887172025 N18.30 Chronic ob structive pulmonary disease 89586764 J44.9 Chronic sy stolic heart failure 207494200 I50.22 Generalize d anxiety disorder 39821041 F41.1 Obesity 813447773 E66.9 Moderate dementia 017779 1076 68743 F03.B0 Peripheral neuropathy due to type 2 diabetes mellitus 3288881923 107 E11.42 Renal diso rder due to type 2 diabetes mellitus 652044257 E11.21 Aneurysm o f thoracic aorta 144652369 I71.20 Vitamin B1 2 deficiency (non anemic) 59641384 E53.8 Administra tion of influenza vaccine 82804528 Z23 [id number] BEKAH ALMANZA MD [facility] [address] [place] [address] 07/27/2023 11:00:31 07/27/2023 11:46:55 Amnesia 03261768 R41.3 Benign pro static hyperplasia with outflow obstruction 684588765 N40.1 Bilateral osteoarthritis of knees 0609102849 14850 M17.0 Atrial fibrillation 4943 6004 I48.91 Chronic ki dney disease stage 3 085909796 N18.30 Chronic ob structive pulmonary disease 02761458 J44.9 History of deep vein thrombosis 110210096 Z86.718 Peripheral neuropathy due to type 2 diabetes mellitus 3229912343 107 E11.42 Obesity 057098995 E66.9 Vitamin B1 2 deficiency (non anemic) 93075784 E53.8 Chronic sy stolic heart failure 738578394 I50.22 Pain of le ft knee joint 5824670855 16011 M25.562 Anemia 680442161 D64.9 [id number] BEKAH ALMANZA MD [facility] [address] [place] [address] 08/13/2023 14:28:45 08/13/2023 15:21:05 Anemia 608148450 D64.9 Vitamin B1 2 deficiency (non anemic) 86751508 E53.8 Type 2 prashant betes mellitus 98085576 E11.9 Chronic ob structive pulmonary disease 37551152 J44.9 Generalize d anxiety disorder 82188702 F41.1 Amnesia 81894678 R41.3 History of deep vein thrombosis 146273945 Z86.718 Chronic ki dney disease stage 3 336486545 N18.30 Chronic at rial fibrillation 083525903 I48.20 Benign pro static hyperplasia with outflow obstruction 906831066 N40.1 Pain of bi lateral knee joints 0270689644 98953 M25.561 Chronic sy stolic heart failure 106339624 I50.22 Adult heal th examination 336751618 Z00.00 Ophthalmic examination and evaluation 30762624 Z01.00 [id number] BEKAH ALMANZA MD [facility] [place] [address] [place] [address] 10/15/2023 13:45:17 10/15/2023 14:20:12 Bilateral osteoarthritis of knees 5337595655 54214 M17.0 Generalize d anxiety disorder 59529456 F41.1 Type 2 prashant betes mellitus 76824322 E11.9 Chronic ob structive pulmonary disease 95525183 J44.9 Chronic ki dney disease stage 3 498584612 N18.30 Benign pro static hyperplasia with outflow obstruction 102733176 N40.1 Vitamin B1 2 deficiency (non anemic) 20475131 E53.8 Chronic sy stolic heart failure 169221821 I50.22 History of deep vein thrombosis 249775008 Z86.718 Chronic at rial fibrillation 916105070 I48.20 Chronic 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 6991592651 08 E11.22 Neuropathy due to type 2 diabetes mellitus 5192750124 19534 E11.40 Hypercoagu lability state 47597024 D68.69 Dementia 58302910 F03.90 [id number] BEKAH ALMANZA MD [facility] [address] [place] [address] 12/17/2023 14:10:15 12/17/2023 14:44:23 Nausea and vomiting 35483975 R11.2 Bilateral osteoarthritis of knees 6329916093 14997 M17.0 Generalize d anxiety disorder 90987253 F41.1 Morbid obesity 510710037 E66.01 Renal diso rder due to type 2 diabetes mellitus 251416624 E11.21 Chronic ki dney disease stage 3 434829920 N18.30 Vascular d ementia without behavioral disturbance 9688870714 4550772 F01.50 Chronic sy stolic heart failure 505310177 I50.22 [id number] BEKAH ALMANZA MD [facility] [place] [place] [place] [address] 01/19/2024 15:26:26 01/19/2024 16:24:30 Administration of viral vaccine 75982914 Z23 Uncontroll ed type 2 diabetes mellitus 518067767 E11.65 Anemia 623757598 D64.9 Chronic at rial fibrillation 351790866 I48.20 Chronic ki dney disease stage 3 859870403 N18.30 [id number] BEKAH ALMANZA MD [facility] [address] [place] [address] 02/09/2024 15:21:13 02/09/2024 16:01:12 Dementia 75446352 F03.90 Anemia 242037291 D64.9 Atrial fibrillation 4943 6004 I48.91 Chronic ki dney disease stage 3 102164704 N18.30 Chronic ob structive pulmonary disease 20465708 J44.9 Generalize d anxiety disorder 96331305 F41.1 Chronic sy stolic heart failure 035890539 I50.22 Peripheral neuropathy due to type 2 diabetes mellitus 5601218502 107 E11.42 History of deep vein thrombosis 690274630 Z86.718 Vitamin B1 2 deficiency (non anemic) 08168767 E53.8 Morbid obesity 427675882 E66.01 Bilateral osteoarthritis of knees 3821722557 91346 M17.0 [id number] BEKAH ALMANZA MD [facility] [address] [place] [address] 04/04/2024 15:11:37 04/04/2024 15:59:37 Peripheral neuropathy due to type 2 diabetes mellitus 7806991367 107 E11.42 Hyperglyce isabela due to type 2 diabetes mellitus 5408330859 25293 E11.65 Morbid obesity 478893968 E66.01 Atrial fibrillation 4943 6004 I48.91 Bilateral osteoarthritis of knees 3698134145 81038 M17.0 Chronic 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 1141256339 08 E11.22 Anemia 282249081 D64.9 Benign pro static hyperplasia with outflow obstruction 761306359 N40.1 Chronic ki dney disease stage 3 702210594 N18.30 Chronic ob structive pulmonary disease 61048655 J44.9 Chronic sy stolic heart failure 793608591 I50.22 Dementia 32180813 F03.90 Generalize d anxiety disorder 12046665 F41.1 History of deep vein thrombosis 138467795 Z86.718 Vitamin B1 2 deficiency (non anemic) 02167420 E53.8 Recurrent urinary tract infection 766051001 N39.0 Onychomycosis 473453836 B35.1 Mood swings 30888440 R45 .86 [id number] DONAVON PEDROZA MD [facility]IV E CARE CLOSED [address] [place] [address] 04/13/2024 13:38:03 04/20/2024 14:57:40 Generalized anxiety disorder 68078896 F41.1 - Will switch from citalopram to escitalopr am. Discussed with family stopping the citalopram 1 day and starting the escitalopr am the following day Moderate dementia 979892 8991 42145 F03.B3 - Will drop donepezil down to 5 mg. Patient does not have Alzheimer' s dementia and he is not really certain of the benefit. Discussed this with the family. Do worry that this could also be contributi ng to impact on mood and contribute to insomnia as well. Palliative care 55462053 9 Z51.5 - Here to establish with palliative care Advance care planning 71 9069291 Z71.89 - His Chary is his healthcare surrogate. He does not have any official ACP documents in place. We did discuss CODE STATUS and she states that she would want everything done. She does states she knows focusing on quality of life would be important as well. Will mail a 5 wishes document to help with some of these conversati ons [id number] MARIO SUE PA-C [facility]ATIV E CARE CLOSED [address] [place] [address] 05/29/2024 14:45:31 05/30/2024 14:01:23 Generalized anxiety disorder 26835655 F41.1 - Recent switch from citalopram to escitalopr am. He will continue with escitalopr am 10 mg daily Moderate dementia 608390 1422 49898 F03.B3 - Recent decrease of donepezil down to 5 mg. Patient does not have Alzheimer' s dementia and he is not really certain of the benefit. We will stop donepezil at this point and recheck in office in 1 month Palliative care 39254856 9 Z51.5 - Here to follow up with palliative care Depressive disorder 4178 8164 F32.A F33.9 Will continue with escitalopr am [...] and recheck with telehealth in 1 month [id number] BEKAH ALMANZA MD [facility]IMARY [facility] [address] [facility] [address] [place] [address] 06/07/2024 15:04:58 06/07/2024 16:11:10 Chronic ki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 2 diabetes mellitus 0615227024 08 E11.22 Morbid obesity 953933476 E66.01 Neuropathy due to type 2 diabetes mellitus 8871016734 13839 E11.40 Anemia 367837547 D64.9 Aneurysm o f thoracic aorta 554609613 I71.20 Atrial fibrillation 4943 6004 I48.91 Benign pro static hyperplasia with outflow obstruction 681345717 N40.1 Bilateral osteoarthritis of knees 0567228226 92012 M17.0 Chronic ki dney disease stage 3 029413730 N18.30 Chronic ob structive pulmonary disease 30436600 J44.9 Chronic sy stolic heart failure 375880118 I50.22 History of deep vein thrombosis 271060694 Z86.718 Moderate dementia 031509 1145 64817 F03.B3 Obesity 798894913 E66.9 Vitamin B1 2 deficiency (non anemic) 73223533 E53.8 Type 2 prashant betes mellitus 29726316 E11.9 Administra tion of influenza vaccine 14003465 Z23 [id number] DONAVON PEDROZA MD [facility] E [facility]ARE CLOSED [address] [facility] [place] [address] 07/04/2024 11:16:53 07/05/2024 04:27:08 Peripheral neuropathy due to type 2 diabetes mellitus 1883948696 107 E11.42 -will reduce gabapentin down to 400mg BID with significan t sedation. Instructed to stop 800mg dose Palliative care 36313409 9 Z51.5 - Here to establish with palliative care Fatigue 65991717 R53.83 - reporting significan t fatigue Generalize d anxiety disorder 94732043 F41.1 -switched from citalopram to escitalopr am Difficulty walking 48454 2002 R26.2 -Patient needs home health for PT/OT and nursing for medication checks [id number] MARIO SUE PA-C [facility]IV E [facility]ARE CLOSED [address] [facility] [place] [address] 07/17/2024 11:23:31 07/19/2024 10:39:04 Peripheral neuropathy due to type 2 diabetes mellitus [address]3715015 [address] Hill had recently decreased his gabapentin from 800 to 400 mg twice daily however they have yet to picker packer prescripti on. They will picker packer Rx today and continue at lower dose to see if this will help with his fatigue symptoms Palliative care 53985874 9 Z51.5 - Here to follow up with palliative care Fatigue 99162066 R53.83 - reporting significan t fatigue but improved without taking quetiapine Generalize d anxiety disorder 06751176 F41.1 Continue with escitalopr am 10 mg daily and advised on 1/2 tablet of quetiapine in the evenings to help with agitation in the evening and sleep cycle Difficulty walking 37907 2002 R26.2 Patient will proceed with physical therapy and increase movement throughout the day. We will reassess in 1 month [id number] DONAVON PEDROZA MD [facility] E [facility] CLOSED [address] [facility] [place] [address] 09/07/2024 09:19:51 09/08/2024 04:08:40 Palliative care 152461478 Z51.5 - Here to establish with palliative care Impaired mobility 272770 05 Z74.09 Will reorder PT OT with home health Pain of bi lateral knee joints 6018392930 66359 M25.561 - Currently follows with Ortho and gets injections regularly. He is also taking Percocet twice daily. We discussed that he can also take Tylenol 1000 mg twice daily. [id number] BEKAH ALMANZA MD [facility]IMARY [facility] [address] [place] [address] 09/19/2024 14:51:33 09/19/2024 15:57:43 Morbid obesity 399942797 E66.01 Anemia 173418439 D64.9 Aneurysm o f thoracic aorta 281386949 I71.20 Atrial fibrillation 4943 6004 I48.91 Benign pro static hyperplasia with outflow obstruction 265055157 N40.1 Bilateral osteoarthritis of knees 2017193778 01416 M17.0 Chronic ki dney disease stage 3 866455929 N18.30 Chronic ob structive pulmonary disease 74400496 J44.9 Dementia 39677256 F03.90 History of deep vein thrombosis 236841569 Z86.718 Hyperglyce isabela due to type 2 diabetes mellitus 6566736872 84892 E11.65 Obesity 204148693 E66.9 Vitamin B1 2 deficiency (non anemic) 83455392 E53.8 Pain of le ft shoulder joint 1747191244 0196967 M25.512 Disorder o f nervous system due to type 2 diabetes mellitus 962123950 E11.42 [id number] MAURILIO DAVILA DO NEUROLOGY [address] [place] [address] 01/31/2025 14:13:14 02/01/2025 04:47:32 Senile dementia 05073264 G30.1 F02.B11 3984995542 Significan t cognitive impairment s consistent with [...] violent behaviors with current dose of seroquel. [id number] BEKAH ALMANZA MD [facility]IMARY [facility]ARE [facility] [address] [facility] [place] [address] 11/16/2024 11:10:23 11/16/2024 12:03:56 Morbid obesity 790462596 E66.01 Neuropathy due to type 2 diabetes mellitus 0566523567 37581 E11.40 Anemia 952941599 D64.9 Chronic at rial fibrillation 141840439 I48.20 Bilateral osteoarthritis of knees 1722281530 05184 M17.0 Benign pro static hyperplasia with outflow obstruction 744026348 N40.1 Chronic ki dney disease stage 3 187095706 N18.30 Chronic ob structive pulmonary disease 80215343 J44.9 Chronic sy stolic heart failure 766144898 I50.22 Dementia 81237126 F03.90 Generalize d anxiety disorder 70059245 F41.1 Hyperglyce isabela due to type 2 diabetes mellitus 9166168169 04883 E11.65 Vitamin B1 2 deficiency (non anemic) 36345556 E53.8 [id number] BEKAH ALMANZA MD PRIMARY [facility]ARE [address] [place] [address] 12/20/2024 10:42:05 12/20/2024 11:09:23 Morbid obesity 928266197 E66.01 Neuropathy due to type 2 diabetes mellitus 9432598447 04890 E11.40 Anemia 550132686 D64.9 Aneurysm o f thoracic aorta 272651334 I71.20 Benign pro static hyperplasia with outflow obstruction 900400095 N40.1 Bilateral osteoarthritis of knees 8678084110 10120 M17.0 Chronic at rial fibrillation 805624843 I48.20 Chronic ki dney disease stage 3 739510173 N18.30 Chronic ob structive pulmonary disease 77595927 J44.9 Chronic sy stolic heart failure 358929342 I50.22 Dementia 85894415 F03.90 Vitamin B1 2 deficiency (non anemic) 62784236 E53.8 [id number] BEKAH ALMANZA MD PRIMARY [facility]ARE [address] [place] [address] 02/15/2025 10:19:19 02/15/2025 10:58:43 Mood swings 08139742 R45.86 Generalize d anxiety disorder 67725678 F41.1 Chronic sy stolic heart failure 202454914 I50.22 Chronic at rial fibrillation 714970151 I48.20 History of deep vein thrombosis 082773337 Z86.718 Hyperglyce isabela due to type 2 diabetes mellitus 0030592743 79699 E11.65 Obesity 641620345 E66.9 Vitamin B1 2 deficiency (non anemic) 43584279 E53.8 Chronic ki dney disease stage 3 261812621 N18.30 Benign pro static hyperplasia with outflow obstruction 598889681 N40.1 Anemia 730161630 D64.9 Bilateral osteoarthritis of knees 9572212455 46047 M17.0 Moderate dementia 225364 8747 45914 F03.B3 Peripheral neuropathy due to type 2 diabetes mellitus 4367777564 107 E11.42 Chronic ob structive pulmonary disease 64264104 J44.9 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 41472298 F33.2 [id number] BEKAH ALMANZA MD PRIMARY CARE [address] [place] [address] 03/07/2025 11:08:01 03/07/2025 11:34:53 Mood swings 21248232 R45.86 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 38465198 F33.2 Chronic sy stolic heart failure 499717173 I50.22 Chronic at rial fibrillation 310760773 I48.20 Generalize d anxiety disorder 92865340 F41.1 History of deep vein thrombosis 750030888 Z86.718 Hyperglyce isabela due to type 2 diabetes mellitus 7332452783 06771 E11.65 Vitamin B1 2 deficiency (non anemic) 11132436 E53.8 Chronic ki dney disease stage 3 125771973 N18.30 Benign pro static hyperplasia with outflow obstruction 359961215 N40.1 Chronic 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 7312525303 08 E11.22 Anemia 902557945 D64.9 Bilateral osteoarthritis of knees 7181733435 09747 M17.0 Moderate dementia 414229 7137 24433 F03.B3 Peripheral neuropathy due to type 2 diabetes mellitus 3359900982 107 E11.42 Chronic ob structive pulmonary disease 56360247 J44.9 Morbid obesity 021956244 E66.01 [id number] BEKAH ALMANZA MD [facility] [place] [address] [place] [address] 04/18/2025 10:50:05 04/18/2025 12:42:51 Generalized anxiety disorder 85764618 F41.1 Chronic sy stolic heart failure 285984065 I50.22 Chronic at rial fibrillation 548364610 I48.20 History of deep vein thrombosis 803519232 Z86.718 Hyperglyce isabela due to type 2 diabetes mellitus 3745659799 54870 E11.65 Vitamin B1 2 deficiency (non anemic) 66241481 E53.8 Obesity 290534484 E66.9 Chronic ki dney disease stage 3 415890647 N18.30 Benign pro static hyperplasia with outflow obstruction 926515091 N40.1 Anemia 255425951 D64.9 Bilateral osteoarthritis of knees 9552500018 41238 M17.0 Dementia 82070175 F03.90 Peripheral neuropathy due to type 2 diabetes mellitus 7742027986 107 E11.42 Chronic ob structive pulmonary disease 34973261 J44.9 Pruritic rash 54854652 L 29.89 2428140 Health Concerns Section Related Observation LastModified by Organization Detai ls LastModified Time None Recorded Concern Status LastModified by Organization Details LastModified Time None Recorded Advance Directives Directive None Recorded Payers Insurance Date Sequence Insurance Name Policy Number Policy Loera Covered Member ID Loera Member ID Guarantor Name 05/05/2025 1 [employer] (MEDICARE REPLACEMENT/AD VANTAGE - PPO) [id number] Boubacar Baxter [id number] Boubacar Sahil 11/17/2024 1 [place]MEDICARE REPLACEMENT HMO) [id number] Boubacar Baxter [id number] Boubacar Sahil Notes Date Note Type Note Provider Name and Address Organization Details Recorded Time 12/20/2024 text/html ROS as noted in the HPI Interval hospitalizations:[place] dication changes:noOther physician visits:noExercise level:lowTobacco or alcohol use:shot of moonshine every 6 monthsHave you had any recent chest pain or unusual dyspnea ?noMr. Baxter is a 84-year-old who comes in [...] the past 1 month BEKAH ALMANZA MD [facility] [place], [address], [facility] 12/24/2024 22:46:46 01/31/2025 text/html 84 y/o [...] somewhat stable compared to prior labs. MAURILIO DAVILA, DO [address], [place], [address], [facility] 01/31/2025 17:13:01 02/15/2025 text/html ROS as noted in the HPI Interval hospitalizations:[place] dication changes:no changesOther physician visits:02/14/25 MRI doneExercise [...] glasses of water daily. BEKAH ALMANZA MD [address] [place] [address], [address], [facility] 02/18/2025 21:14:53 03/07/2025 text/html ROS as noted in the HPI Interval hospitalizations:[place] dication changes:no changesOther physician visits:noExercise level:none hard [...] just 3 weeks ago. BEKAH ALMANZA MD [address] [place] [address], [phone], [facility] 03/08/2025 07:18:33 04/18/2025 text/html ROS as noted in the HPI Interval hospitalizations:[facility] regarding a bump on his chestMedication changes:no [...] he went to the emergency room at due to a tender painful sebaceous cyst [...] skin earlier this summer. BEKAH ALMANZA MD [address] [place] [address], [phone], [facility] 04/18/2025 22:19:59
--- OUTSIDE RECORDS SUMMARY | 2025-06-09 21:36 | XMS_ITS | Continuity of Care Document ---
Author Organization [facility], [facility] Address [address] [facility] [address] [place] [address] Care Team Providers Care Supervisor Felling Bucking Name Role Phone BEKAH ALMANZA Primary Care [...] have high-dose flu shot at that time [email or web address] Not available 04/18/2025 22:19:34 Plan of Treatment Reminders Order Date Submit Date Provider Last Modified By Organization Details Last Modified Time Details Appointments RECHECK 2024 10:45A M BEKAH ALMANZA MD Not available Not available Not available NEUROLOGY RECHECK 2024 10:30A M MAURILIO FERRARA DO Not available Not available Not available Lab lyme disease igg+igm, serum, reflex western blot 2024 025 [facility], [address] [place] [address], [phone], 04/20/2025 15:13:21 ESR (erythroc yte sedimenta tion rate), blood 2024 025 [facility], [address] [place] [address], [phone], 04/18/2025 20:12:08 Referral dermatolo gist referral - in 7-10 days 2024 025 [email or web address] Nicholas Thomas MD, [address] [place] [address], [phone], 05/30/2025 08:30:09 Procedures None recorded. Surgeries None recorded. Imaging None recorded. Medication Orders triamcino lone acetonide 0.1 % topical cream 2024 025 [facility], [address], [address], 04/18/2025 12:13:02 Patient TargetsNo targets recorded. Patient InstructionsNo instructions recorded. 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 Not Available [facility] [address] [place] [address], [phone], 04/20/2025 15:13:21 06/01/2006/01/2025 elect lambert springgr am, routi ne ECG, 12 leads min No observ ation record ed. [email or web address], [place], [address], 06/04/2025 09:28:44 06/01/2006/01/2025 CT, abdom en + pelvi s, w/o contr ast No observ ation record ed. [email or web address] Not Available 06/04 09:28:30 06/02/20 25 06/02/2025 CT, abdom en + pelvi s, w/o contr ast No observ ation record ed. [email or web address] [facility] [address], [place], [address], 06/05/2025 12:54:11 06/02/20 25 06/02/2025 clara nuous exter nal ECG monit oring , more than 48 hours up to 7 days No observ ation record ed. [email or web address] Not Available 06/05 12:54:30 06/06/2006/06/2025 XR, chest No observ ation record ed. [address] (X-Ray) [address], [place], [address], 06/07/2025 14:01:21 06/06/2006/06/2025 NM, hepat obili taryn scan No observ ation record ed. [email or web address], [place], [address], 06/07/2025 14:01:05 Result Notes None recorded. Problems Name Problem SNOMED Code Status Onset Date Resolution Date Notes Provider Name and Address Organization Details Recorded Time Chronic ki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 2 diabetes mellitus 726309623047 Active Not Available [facility] 4 06:45:56 Neuropathy due to type 2 diabetes mellitus 9176905227225 06 Active Not Available [facility] [employer] 4 06:46:25 Hypercoagu lability state 48160144 Active Not Available [facility] 4 06:46:31 Uncontroll ed type 2 diabetes mellitus 217267747 Active Not Available [facility] 4 06:33:25 Severe recurrent major depression without psychotic features 27167709 Active Not Available [employer] 5 21:04:25 Benign prostatic hyperplasi a with outflow obstructio n 298170558 Active 2022 BEKAH ALMANZA MD [address] [place] [address], [address] , [facility] 3 15:01:56 Bilateral osteoarthr itis of knees 7654714232363 07 Active 2022 BEKAH ALMANZA MD [address] [place] [address], [address] , [facility] 3 15:01:59 Chronic atrial fibrillati on 313036714 Active 2022 BEKAH ALMANZA MD [address] [place] [address], [address] , [facility] 3 15:02:00 Chronic kidney disease stage 3 781666940 Active 2022 BEKAH ALMANZA MD [address] [place] [address], [address] , [facility] 3 15:02:04 Chronic obstructiv e pulmonary disease 48279928 Active 2022 BEKAH ALMANZA MD [address] [place] [address], [address] , [facility] 3 15:02:06 Chronic systolic heart failure 534615829 Active 2022 BEKAH ALMANZA MD [address] [place] [address], [address] , [facility] 3 15:02:07 Generalize d anxiety disorder 44326612 Active 2022 BEKAH ALMANZA MD [address] [place] [address], [address] , [facility] 3 15:02:09 Obesity 196777887 Active 2022 BEKAH ALMANZA MD [address] [place] [address], [address] , [facility] 3 15:02:11 Moderate dementia 7744950416158 00 Active 2022 BEKAH ALMANZA MD [address] [place] [address], [address] , [facility] 3 15:02:13 Peripheral neuropathy due to type 2 diabetes mellitus 9471239199091 Active 2022 BEKAH ALMANZA MD [address] [place] [address], [address] , [facility] 3 15:02:15 Renal disorder due to type 2 diabetes mellitus 046411279 Active 2022 BEKAH ALMANZA MD [address] [place] [address], [address] , [facility] 3 15:02:18 Aneurysm of thoracic aorta 552895183 Active 2022 BEKAH ALMANZA MD [address] [place] [address], [address] , [facility] 3 15:02:20 Vitamin B12 deficiency (non anemic) 23518189 Active 2022 BEKAH ALMANZA MD [address] [place] [address], [address] , [facility] 3 15:02:22 History of deep vein thrombosis 654913410 Active 2022 BEKAH ALMANZA MD [address] [place] [address], [address] , [facility] 3 18:35:02 Anemia 692152597 Active 2022 BEKAH ALMANZA MD [address] [place] [address], [address] , [facility] 3 18:35:11 Type 2 diabetes mellitus 96698306 Active 2022 BEKAH ALMANZA MD [address] [place] [address], [address] , [facility] 3 15:05:34 Pain of bilateral knee joints 1199851180100 04 Active 2022 BEKAH ALMANZA MD [address] [place] [address], [address] , [facility] 3 15:05:46 Ophthalmic examinatio n and evaluation Active 2022 BEKAH ALMANZA MD [address] [place] [address], [address] , [facility] 3 15:06:26 Dementia 73918238 Active 2023 BEKAH ALMANZA MD [address] [place] [address], [address] , [facility] 4 06:56:51 Nausea and vomiting 81134531 Active 2023 BEKAH ALMANZA MD [address] [place] [address], [address] , [facility] 4 21:27:40 Administra tion of viral vaccine Active 2023 BEKAH ALMANZA MD [address] [place] [address], [address] , [facility] 4 06:43:44 Hyperglyce isabela due to type 2 diabetes mellitus 5812863081193 09 Active 2023 BEKAH ALMANZA MD [address] [place] [address], [address] , [facility] 4 13:25:23 Atrial fibrillati on 43322917 Active 2023 BEKAH ALMANZA MD [address] [place] [address], [address] , [facility] 4 13:26:04 Recurrent urinary tract infection 832585192 Active 2023 BEKAH ALMANZA MD [address] [place] [address], [address] , [facility] 4 13:26:26 Onychomyco sis 356096086 Active 2023 BEKAH ALMANZA MD [address] [place] [address], [address] , [facility] 4 13:26:27 Mood swings 41316780 Active 2023 BEKAH ALMANZA MD [address] [place] [address], [address] , [facility] 4 13:26:29 Administra tion of influenza vaccine Active 2023 BEKAH ALMANZA MD [address] [place] [address], [address] , [facility] 4 23:29:03 Pain of left shoulder joint 1573558389618 9109 Active 2024 BEKAH ALMANZA MD [address] [place] [address], [address] , [facility] 5 06:55:13 Disorder of nervous system due to type 2 diabetes mellitus 542156617 Active 2024 BKEAH ALMANZA MD [address] [place] [address], [address] , [facility] 5 06:55:19 Senile dementia 89000184 Active 2024 MAURILIO FERRARA, [address] [place] [address], [address] , [facility] 14:59:33 Pruritic rash 61932271 Active 2024 BEKAH ALMANZA MD [address] [place] [address], [address] , [facility] 22:19:34 Problem Notes None recorded. Procedures Surgical History Date Name Laterality Status Provider Name and Address Organization Details Recorded Time 04/13/20 24 Social Determinants of Health completed DONAVON PEDROZA MD [address] [place] [address], [address], [facility] 04/13/2024 15:40:11 04/04/20 24 TCM completed Rosio Tommie [facility] 03/31/2024 10:46:40 11/15/19 24 operation on bone injury of femur completed Jennie Tobar [facility] 01/31/2025 14:38:06 08/16/19 21 operation on lung completed Jennie Tobar [facility] 01/31/2025 14:37:15 operation on hip joint completed Aishwarya Rodriguez [facility] 12/17/2023 14:16:02 Imaging Results None recorded. Procedure [...] t Available Vitals Date Recorded Body height Oxygen saturation Oxygen saturation in Arterial blood by Pulse oximetry Heart rate Body mass index (BMI) Body weight Systolic And Diastolic Provider Name and Address Organization Details Last Updated DateTime 5 177.8 cm 97 % 97 % 90 /min 33 kg/m2 647441. 25 g 132/76 mm[Hg] Radha Perez [facility] 5 11:08:20 Social History Question Answer Notes LastModified by Organizat ion Details LastModified Time Tobacco Smoking Status Former Smoker Luz Ortega [facility] 01/19/2024 15:42:37 What Is The Highest Grade Or Level Of School You Have Completed Or The Highest Degree You Have Received? [id number] Information not available 01/31/2025 When Did You Quit Smoking? 6-10yearssin celastcigare tte Information not available 01/19/2024 What Was The Date Of Your Most Recent Tobacco Screening? 06/07/2024 Information not available 06/07/2024 What Is Your Relationship Status? Information not available 01/31/2025 Has Tobacco Cessation Counseling Been Provided? No Information not available 05/14/2023 Sex: Unknown Functional Status Question Answer Note LastModified by [employer] Details LastModified Time Do you use any [...] available 2024 14:34:44 Medical History Condition Response Anxiety Disorder Y Diabetes Y Arthritis Y Parkinson's Disease N Tuberculosis N Cancer N Alzheimer's Y Migraines N Stroke N Depression N Glaucoma N High Cholesterol N Heart Disease Y Hypertension N Neurological Problems Y Immunizations Vaccine Type Date Status Note Provider Nam e and Address Organization Details Recorded Time COVID-19, mRNA, LNP-S, PF, 30 mcg/0.3 mL dose 1 completed Jasmin Ray [facility] 12/17/2023 14:03:42 COVID-19, mRNA, LNP-S, PF, 30 mcg/0.3 mL dose 1 completed Jasmin Ray [facility] 12/17/2023 14:03:42 COVID-19, mRNA, LNP-S, PF, 30 mcg/0.3 mL dose 1 completed Jasmin Ray [facility] 12/17/2023 14:03:42 COVID-19, mRNA, LNP-S, PF, 30 mcg/0.3 mL dose, alma-sucrose 2 completed Jasmin Ray [facility] 12/17/2023 14:03:42 Pneumococcal conjugate PCV 13 7 completed Jasmin Ray [facility] 12/17/2023 14:03:42 Influenza, high-dose, trivalent, PF 6 completed Jasmin Ray [facility] 12/17/2023 14:03:42 Influenza, high-dose, trivalent, PF 5 completed Cookie Mari [facility] 01/12/2025 14:14:39 Influenza, high-dose, quadrivalent, PF 3 completed BEKAH ALMANZA MD [address] [place] [address], [address], [facility] 05/16/2023 21:27:46 zoster recombinant 4 completed BEKAH ALMANZA MD [address] [place] [address], [address], [facility] 01/20/2024 06:33:46 Influenza, high-dose, trivalent, PF 4 completed Luz Ortega [facility] 06/08/2024 11:58:43 Past Encounters Encounter ID Performer Location Encounter Start Date Encounter Closed Date Diagnosis/Indication Diagnosis SNOMED-CT Code Diagnosis ICD10 Code Diagnosis IMO Codes Diagnosis Note [id number] BEKAH ALMANZA MD [facility] [address] [place] [address] 04/18/2025 10:50:05 04/18/2025 12:42:51 Generalized anxiety disorder 59055793 F41.1 Chronic sy stolic heart failure 964074592 I50.22 Chronic at rial fibrillation 587312263 I48.20 History of deep vein thrombosis 141974106 Z86.718 Hyperglyce isabela due to type 2 diabetes mellitus 6098883507 60804 E11.65 Vitamin B1 2 deficiency (non anemic) 90626150 E53.8 Obesity 606498774 E66.9 Chronic ki dney disease stage 3 360364830 N18.30 Benign pro static hyperplasia with outflow obstruction 448878185 N40.1 Anemia 863127469 D64.9 Bilateral osteoarthritis of knees 6583708669 99340 M17.0 Dementia 27994637 F03.90 Peripheral neuropathy due to type 2 diabetes mellitus 3934670781 107 E11.42 Chronic ob structive pulmonary disease 89531785 J44.9 Pruritic rash 77617153 L 29.89 6919239 Health Concerns Section Related Observation LastModified by Organization Detai ls LastModified Time None Recorded Concern Status LastModified by Organization Details LastModified Time None Recorded Payers Encounter Date Sequence Insurance Name Policy Number Policy Loera Covered Member ID Loera Member ID Guarantor Name 04/18/2025 1 [employer] (MEDICARE REPLACEMENT/ ADVANTAGE - PPO) [id number] Boubacar Baxter [id number] Boubacar Sahil Notes Date Note Type Note Provider Name and Address Organization Details Recorded Time 04/18/2025 text/html ROS as noted in the HPI Interval hospitalizations:Wilma hinds regarding a bump on his chestMedication changes:no changesOther physician visits:noExercise level:noneTobacco or alcohol use:noHave you had any recent chest pain or unusual dyspnea ?noMashley Baxter is a 85-year-old who comes the office today with his and granddaughter. He has had a very pruritic rash on his arms and legs for about 2 to 3 weeks. About 3 weeks ago he went to the emergency room at [facility] due to a tender painful sebaceous cyst [...] skin earlier this summer. BEKAH ALMANZA MD [facility] [place], [address], [facility] 04/18/2025 22:19:59
--- OUTSIDE RECORDS SUMMARY | 2025-06-09 21:36 | XMS_ITS | Clinical Summary ---
[facility] Address [address] [place] [address] Care Team Providers Care Skating Rink Manager Name Role Phone Chaparro Almanza MD Primary Care Provider [phone] Allergies No known active allergies Medications Insulin [...] from Last 3 Months Insurance TEZ MOREIRA [id number] [employer] MEDICARE ADVANTAGE PPO Care Teams Skating Rink Manager Relationship Specialty Start Date End Date Chaparro Almanza MD [address] [place] [address] PCP - General Internal Medicine 05/29/22
--- NOTE | 2025-06-09 21:41 | CT_ITS ---
PROCEDURE INFORMATION: Exam: CTA Chest With Contrast Exam date and time: 06/09/2025 10:15 PM Age: 85 years old Clinical indication: Other: Chest pain, hypoxic, sp surgery TECHNIQUE: Imaging protocol: Computed tomographic angiography of the chest with contrast. Exam focused on the arteries. 3D rendering (Not supervised by radiologist): MIP and/or 3D reconstructed images were created by the technologist. Radiation optimization: All CT scans at this facility use at least one of these dose optimization techniques: automated exposure control; mA and/or kV adjustment per patient size (includes targeted exams where dose is matched to clinical indication); or iterative reconstruction. Contrast material: ISO 370; Contrast volume: 80 ml; Contrast route: INTRAVENOUS (IV); COMPARISON: CT ANGIO CHEST 11/26/2023 7:00 PM FINDINGS: Pulmonary arteries: Normal. No pulmonary emboli. Aorta: Unremarkable. No aortic aneurysm. No aortic dissection. Lungs: Mild scattered atelectasis in both lungs. Lungs are otherwise clear. Pleural spaces: Unremarkable. No pneumothorax. No pleural effusion. Heart: Unremarkable. No cardiomegaly. No pericardial effusion. Lymph nodes: Unremarkable. No enlarged lymph nodes. Bones/joints: Moderate degenerative changes throughout the thoracic spine and in both shoulders. No vertebral body compression. No acute fracture. Soft tissues: Unremarkable. IMPRESSION: No acute abnormality. Chronic findings as noted.
--- NOTE | 2025-06-09 21:41 | ECG_ITS ---
APPROVED REPORT Exam: Resting ECG HR:118 bpm ECG Measurements Heart Rate 118 AXES QRSd 137 QRS -77 QT 326 T 84 QTc 396 Conclusion ATRIAL FIBRILLATION WITH RAPID VENTRICULAR RESPONSE LEFT AXIS DEVIATION [QRS AXIS < -30] RIGHT BUNDLE BRANCH BLOCK [120+ ms QRS DURATION, UPRIGHT V1, 40+ ms S IN I/aVL/V4/V5/V6] ABNORMAL ECG UNCONFIRMED REPORT Electronically signed by : DAVID MONACO, 06/12/2025 06:34:20
--- NOTE | 2025-06-09 21:41 | CT_ITS ---
PROCEDURE INFORMATION: Exam: CT Abdomen And Pelvis With Contrast Exam date and time: 06/09/2025 10:15 PM Age: 85 years old Clinical indication: Abdominal pain; Additional info: Diffuse pain S/P cholecystectomy TECHNIQUE: Imaging protocol: Computed tomography of the abdomen and pelvis with contrast. 3D rendering (Not supervised by radiologist): MIP and/or 3D reconstructed images were created by the technologist. Radiation optimization: All CT scans at this facility use at least one of these dose optimization techniques: automated exposure control; mA and/or kV adjustment per patient size (includes targeted exams where dose is matched to clinical indication); or iterative reconstruction. Contrast material: ISOVUE; Contrast volume: 80 ml; Contrast route: IV; COMPARISON: CT ABDOMEN PELVIS WO CON 06/02/2025 5:49 AM FINDINGS: Tubes, catheters and devices: Percutaneous drainage catheter along the inferior and right lower margin of the liver. Liver: Normal. No mass. Gallbladder and biliary ducts: There is evidence of recent cholecystectomy. Loculated fluid and gas collection in the gallbladder fossa measuring 8.4 cm in greatest diameter. Mild biliary ductal dilation. Pancreas: Normal. No ductal dilation. Spleen: Normal. No splenomegaly. Adrenal glands: Normal. No mass. Kidneys and ureters: Multiple simple appearing bilateral renal cortical cysts, the largest measuring approximately 7.9 cm in diameter. No hydronephrosis. Stomach and bowel: Unremarkable. No obstruction. No mucosal thickening. Appendix: No evidence of appendicitis. Intraperitoneal space: Unremarkable. No free air. No significant fluid collection. Vasculature: Moderate atherosclerotic calcification throughout the aorta and iliac arteries. No evidence of aneurysm or dissection. Lymph nodes: Unremarkable. No enlarged lymph nodes. Urinary bladder: Unremarkable as visualized. Reproductive: Unremarkable as visualized. Bones/joints: Orthopedic hardware in place in the left femur. Moderate to severe degenerative disc changes and facet arthropathy throughout the lower spine. No vertebral body compression. No acute fracture. Soft tissues: Unremarkable. IMPRESSION: 8.4 cm loculated fluid and gas collection in the gallbladder fossa. In the setting of recent cholecystectomy, this is compatible with postoperative biloma or abscess. COMMENTS: Consistent with the [employer]'s Incidental Findings Committee white paper (J Am Jacobo Radiol 2018): Any incidental renal lesion less than 1 cm or classified as too small to characterize, or any incidental cystic renal lesion characterized as simple-appearing, is likely benign. No follow-up imaging is recommended for these lesions per consensus recommendations based on imaging criteria.
--- NOTE | 2025-06-09 21:44 | HMH.EDGENADL ---
Discharge Plan Disposition Patient Disposition: Admitted Condition: Good Clinical Impressions Clinical Impression: Intra-abdominal abscess Discharge ED Provider: Serena Walsh Adult HPI General Chief complaint: Abdominal Pain Stated complaint: Abdominal Pain Time Seen by Provider: 06/09/25 21:43 Mode of Arrival: EMS Source of Information: Patient and EMS Description of Symptoms (Recalled from ER Triage Doc. by RN): Abd Pain Pt presents to the ED via [employer]. EMS with c/o worsening abd pain post op Brina X 1 week. t reports that he started having severe abd pain today. Pt has GRICELDA drain in place witht he bulb fully inflated with small amount of drainage and scant amount of drainage around site. Buld was deflated during triage. History of Present Illness HPI narrative: Patient is an 85-year-old gentleman with a past medical history of cholecystectomy 1 week ago who presents to the emergency department with worsening abdominal pain that started today. States that he was discharged 2 days ago and did not have any significant pain at that time. Patient states that he was unable to get out of bed today because of the pain. Has not had any fevers. Has not had any vomiting or nausea. Has not had any diarrhea. Patient denies any urinary symptoms. Patient does report some lower chest pain but denies any shortness of breath. States that he used oxygen while in the hospital but has not required any at home. Patient denies any change to his GRICELDA drain output. Related Data Home Medications ?Medication ?Instructions ?Recorded ?Confirmed finasteride 5 mg tablet 5 mg PO DAILY 05/12/21 06/02/25 metformin 1,000 mg tablet 1,000 mg PO BIDWMEAL 05/12/21 06/02/25 Held on 06/06/25. Instructions: Resume on 06/09/25. Hold during postoperative period until Wednesday. tamsulosin 0.4 mg capsule 0.4 mg PO HS 03/26/22 06/02/25 rivaroxaban 20 mg tablet 20 mg PO QPMWITHMEAL 04/27/22 06/02/25 esomeprazole magnesium 40 mg 40 mg PO DAILY 12/05/22 06/02/25 capsule,delayed release insulin degludec 100 unit/mL (3 28 unit SQ DAILY 12/05/22 06/02/25 mL) subcutaneous pen (Tresiba FlexTouch U-100 insulin) midodrine 5 mg tablet 10 mg PO TID 12/05/22 06/02/25 ferrous sulfate 325 mg (65 mg 325 mg PO DAILY 11/27/23 06/02/25 iron) tablet (FeroSul) gabapentin 400 mg capsule 400 mg PO BID 06/02/25 06/02/25 memantine 5 mg tablet 5 mg PO BID 06/02/25 06/02/25 oxycodone-acetaminophen 7.5 mg-325 1 tab PO Q6HP PRN Severe Pain 06/02/25 06/02/25 mg tablet (Scale Score 7-10) potassium chloride 10 mEq 10 meq PO DAILY 06/02/25 06/02/25 capsule,extended release triamcinolone acetonide 0.1 % 1 applic topical BID 06/02/25 06/02/25 topical cream quetiapine 50 mg tablet 50 mg PO TID 06/03/25 06/03/25 Previous Rx's ?Medication ?Instructions ?Recorded alprazolam 0.5 mg tablet 0.5 mg PO BIDP PRN Anxiety 10 days 11/29/23 #20 tabs Allergies Allergy/AdvReac Type Severity Reaction Status Date / Time No Known Allergies Allergy Verified 06/09/25 21:[address] [facility] Disclaimer: The information contained in this section may have been updated after the patient was seen, as this information can be updated by other users. Medical History (Updated 06/10/25 @ 00:00 by Willy Box) Dementia COPD (chronic obstructive pulmonary disease) Abscess of lung Acute diverticulitis Arthritis Diabetes Afib Hypotension Abnormal electrocardiography Dyspnea Surgical History (Updated 06/01/25 @ 20:21 by Radha Tiwari APRN) History of total right knee replacement Family History Other Family history of cancer Social History (Updated 06/01/25 @ 20:21 by Radha Tiwari APRN) Smoking Status: Former smoker smoking status stop date: 25 years ago alcohol intake: former substance use type: denies use current occupational status: disabled Travel in the last 8 weeks?: Inside the [place] household members: spouse and children housing: house Have you lived/traveled outside [place] in past 30 days?: No Contact w/someone who lives/traveled outside [place] past 30 days?: No Exposure to someone with infectious disease in past 14 days?: No Do you have a fever (greater than 100.4 F or 38 C)?: No Have you tested positive for COVID-19?: No Exposed to someone with COVID-19 in past 14 days?: No Do you have a sore throat?: No Do you have a cough?: No Do you have any weakness?: No Do you have any diarrhea?: No Are you experiencing any unusual bleeding?: No Do you have any muscle aches/pain?: No Do you have any abdominal pain?: No Are you experiencing loss of taste or smell?: No Other Medical History Have you received the Flu Vaccine for this season: No Have you received the Pneumonia Vaccine: No ROS Obtained: Yes All systems reviewed & no additional complaints except as documented and Yes Systems reviewed as appropriate & no additional complaints except as documented Physical Exam General General appearance: alert and in no apparent distress Head Head exam: atraumatic, normocephalic and normal inspection Eye Eye exam: Present normal appearance, PERRL and EOMI; Absent scleral icterus ENT ENT exam: Present normal exam and normal external ear exam Neck Neck exam: Present normal inspection and full ROM Chest Chest inspection: Present normal inspection and symmetric chest wall rise Respiratory Respiratory exam: Present normal lung sounds bilaterally; Absent respiratory distress or wheezes Cardiovascular Cardiovascular exam: Present tachycardia, irregular rhythm and normal heart sounds Abdominal Exam Abdominal exam: Present soft, distention and tenderness (diffuse tenderness with GRICELDA drain in place in the RUQ with serosanguinous output); Absent guarding or rebound Extremities Exam Extremities exam: Present normal inspection and full ROM Back Exam Back exam: Present normal inspection and full ROM Neurological Exam Neurological exam: Present alert and oriented X3 Psychiatric Psychiatric exam: Present normal affect and normal mood Skin Skin exam: Present warm and dry Medical Decision Making Medical Records Medical records reviewed: Yes I reviewed the patient's medical records. Screening: Per USPSTF and CDC recommendations, given the prevalence of disease in our region, it is our hospital?s policy to screen for HIV and viral Hepatitis for all patients aged 18 and over and those with ongoing risk factors. [place] Inquiry Pt receiving controlled substance: No Vital Signs: 06/09/25 21:35 06/09/25 21:40 06/09/25 22:00 Temperature 98.1 F Temperature Source Oral Pulse Rate 109 H Pulse Rate [Left] 89 Respiratory Rate 16 Blood Pressure 98/56 L Blood Pressure [Right Arm] 106/70 L Blood Pressure Mean 70 Blood Pressure Mean [Right Arm] 82 Blood Pressure Source [Right Arm] Automatic Cuff Blood Pressure Position [Right Arm] Sitting 02 Sat by Pulse Oximetry 97 94 L Oxygen Delivery Method Nasal Cannula Nasal Cannula Oxygen Flow Rate (LPM) 2 4 06/09/25 22:21 06/09/25 22:26 06/09/25 22:26 Temperature Temperature Source Pulse Rate 98 H 83 Pulse Rate [Left] Respiratory Rate 14 19 Blood Pressure 111/48 L Blood Pressure [Right Arm] Blood Pressure Mean 70 Blood Pressure Mean [Right Arm] Blood Pressure Source [Right Arm] Blood Pressure Position [Right Arm] 02 Sat by Pulse Oximetry 97 98 Oxygen Delivery Method Nasal Cannula Nasal Cannula Oxygen Flow Rate (LPM) 4 4 06/09/25 22:30 06/09/25 22:30 06/09/25 22:45 Temperature Temperature Source Pulse Rate 103 H 111 H Pulse Rate [Left] Respiratory Rate 21 20 Blood Pressure 113/67 Blood Pressure [Right Arm] Blood Pressure Mean 74 Blood Pressure Mean [Right Arm] Blood Pressure Source [Right Arm] Blood Pressure Position [Right Arm] 02 Sat by Pulse Oximetry 96 96 Oxygen Delivery Method Nasal Cannula Nasal Cannula Oxygen Flow Rate (LPM) 4 4 06/09/25 22:45 06/09/25 23:00 06/09/25 23:00 Temperature Temperature Source Pulse Rate 108 H Pulse Rate [Left] Respiratory Rate 21 Blood Pressure 111/57 L 118/63 Blood Pressure [Right Arm] Blood Pressure Mean 75 76 Blood Pressure Mean [Right Arm] Blood Pressure Source [Right Arm] Blood Pressure Position [Right Arm] 02 Sat by Pulse Oximetry 97 Oxygen Delivery Method Nasal Cannula Oxygen Flow Rate (LPM) 4 06/09/25 23:15 06/09/25 23:15 06/09/25 23:30 Temperature Temperature Source Pulse Rate 93 H Pulse Rate [Left] Respiratory Rate 24 Blood Pressure 115/58 L 118/69 Blood Pressure [Right Arm] Blood Pressure Mean 71 76 Blood Pressure Mean [Right Arm] Blood Pressure Source [Right Arm] Blood Pressure Position [Right Arm] 02 Sat by Pulse Oximetry 96 Oxygen Delivery Method Nasal Cannula Oxygen Flow Rate (LPM) 4 06/09/25 23:30 06/09/25 23:45 06/09/25 23:45 Temperature Temperature Source Pulse Rate 102 H 115 H Pulse Rate [Left] Respiratory Rate 22 24 Blood Pressure 110/63 Blood Pressure [Right Arm] Blood Pressure Mean 71 Blood Pressure Mean [Right Arm] Blood Pressure Source [Right Arm] Blood Pressure Position [Right Arm] 02 Sat by Pulse Oximetry 97 98 Oxygen Delivery Method Nasal Cannula Nasal Cannula Oxygen Flow Rate (LPM) 4 4 Lab Data Lab results reviewed: Yes I reviewed the patient's lab results. Lab Results 06/09/25 21:30: WBC 11.1 H, RBC 4.45 L, Hgb 13.4 L, Hct 41.1 L, MCV 92.4, MCH 30.1, MCHC 32.6, RDW 13.7, Plt Count 233 D, MPV 9.8, Neut % (Auto) 70.1, Lymph % (Auto) 17.4, [place] % (Auto) 8.2, Eos % (Auto) 2.0, Baso % (Auto) 0.4, Neut # (Auto) 7.8, Lymph # (Auto) 1.9, [place] # (Auto) 0.9, Eos # (Auto) 0.2, Baso # (Auto) 0.0, Sodium 130 L, Potassium 4.6, Chloride 93 L, Carbon Dioxide 33 H, Anion Gap 8.6, BUN 20, Creatinine 1.20, Estimated Creat Clear 64, Estimated GFR 57 L, Est GFR ( Amer) 69, Glucose 253 H, Calcium 8.6, Total Bilirubin 0.8, AST 32, ALT 25, Alkaline Phosphatase 78, Troponin I < 0.01, NT-Pro-B Natriuret Pep 587 H, Total Protein 6.5, Albumin 3.5, Globulin 3.0, Albumin/Globulin Ratio 1.2, Lipase 71 06/09/25 21:41: VBG pH 7.40, VBG pCO2 44.5, VBG pO2 39.3, VBG HCO3 26.8, VBG Total CO2 28.1 H, VBG O2 Saturation 70.9 H, VBG Base Excess 1.9, VBG Lactic Acid 1.7 06/09/25 21:52: Urine Color Yellow, Urine Appearance Clear, Urine pH 7.5, Ur Specific [place] 1.015, Urine Protein Negative, Urine Glucose (UA) Trace, Urine Ketones Negative, Urine Blood Negative, Urine Nitrate Negative, Urine Bilirubin Negative, Urine Urobilinogen 4.0, Ur Leukocyte Esterase Negative, Urine RBC None, Urine WBC None, Ur Squamous Epith Cells None, Urine Bacteria None 06/09/25 21:30 06/09/25 21:30 Orders (Tests/Meds): ED MEDICATIONS Discontinued Medications Generic Name Dose Route Start Last Admin Trade Name Freq PRN Reason Stop Dose Admin Lactated Ringer's 1,000 mls @ 999 mls/hr 06/09/25 21:42 06/09/25 23:13 Lactated Ringer's 1000 Ml Bag IV 06/09/25 22:42 Infused .Q1H1M ONE Infusion Piperacillin Sod/Tazobactam 100 mls @ 200 mls/hr 06/09/25 22:30 06/09/25 23:13 Sod 4.5 gm/ Sodium Chloride IV 06/09/25 22:59 Infused ONCE ONE Infusion Iopamidol 80 ml 06/09/25 22:14 06/09/25 22:15 Iopamidol-370 (76%);100ml Bottle IV 06/09/25 22:15 80 ml ONCE ONE Administration Morphine Sulfate 4 mg 06/09/25 21:42 06/09/25 21:59 Morphine 2mg/Ml Syringe IV 06/09/25 21:43 Not Given ONCE ONE Morphine Sulfate 4 mg 06/09/25 21:48 06/09/25 21:53 Morphine 4mg/Ml Syringe IV 06/09/25 21:49 4 mg ONCE ONE Administration Ondansetron HCl 4 mg 06/09/25 21:50 06/09/25 21:53 Ondansetron 4mg/2ml Vial IV 06/09/25 21:51 4 mg ONCE ONE Administration Sodium Chloride 50 ml 06/09/25 22:14 06/09/25 22:14 0.9 % Sodium Chloride 50 Ml Vial IV 06/09/25 22:15 50 ml ONCE ONE Administration Sodium Chloride 10 ml 06/09/25 22:14 06/09/25 22:14 Sodium Chloride 0.9% 10ml Syr (Rad Only) IV 06/09/25 22:15 10 ml ONCE ONE Administration ORDERS Category Date Time Status CT abdomen pelvis w con Stat Cat Scan 06/09/25 21:[address] angio chest PE protocol Stat Cat Scan 06/09/25 21:41 Completed BNP [NT Pro Brain Natriuretic Pep.] Stat Lab 06/09/25 21:30 Completed CBC w/Auto Diff [Complete Blood Count Auto Diff] Stat Lab 06/09/25 21:30 Completed CMP [Comprehensive Metabolic Panel] Stat Lab 06/09/25 21:30 Completed Lipase Stat Lab 06/09/25 21:30 Completed Trop I [Troponin I] Stat Lab 06/09/25 21:30 Completed Troponin I Q3H Lab 06/10/25 00:45 Ordered Troponin I Q3H Lab 06/10/25 03:45 Ordered UA [Urinalysis and Microscopic] Stat Lab 06/09/25 21:52 Completed Blood Culture Stat Micro 06/09/25 21:45 Received Urine Culture Stat Micro 06/09/25 21:52 Received VBG [Venous Blood Gas] Stat RT 06/09/25 21:41 Completed Medical Decision Narrative: Patient is a 89-year-old gentleman with a past medical history of cholecystectomy 1 week ago who presents to the emergency department with diffuse abdominal pain and chest pain. On arrival, patient was in A-fib, but hemodynamically stable. Patient was afebrile. Differential includes but not limited to: ACS/MN, pneumonia, pulmonary embolism, intra-abdominal abscess, postoperative pain, amongst others. Patient's labs were reviewed and interpreted by myself: CBC showed a mild leukocytosis, hemoglobin was stable. VBG was unremarkable with normal lactate. CMP was notable for mild hyponatremia of 130, mildly elevated glucose of 253. Initial troponin less than 0.01. BNP 587. UA showed no evidence of infection. Blood cultures were obtained on arrival. Was given a liter of IV fluids and morphine for pain control. Patient CT scan was reviewed and interpreted by myself and showed concern for possible abscess in the gallbladder fossa. Patient was given IV Zosyn. CT PE per radiology was negative for any acute pathology, CT abdomen pelvis showed and confirmed abscess. I discussed the case with the hospitalist and patient was ultimately admitted to their service for further evaluation and workup with plan to consult general surgery in the morning. Critical Care Critical Care Time Critical Care Time: No
[2025-06-09 21:46] LABS: Hematocrit 41.1 % (42.0-52.0); Hemoglobin 13.4 g/dL (14.1-18.0); Immature Granulocytes % 1.9 %; Mean Corpuscular HGB Conc 32.6 g/dL (31.8-35.4); Mean Corpuscular Hemoglobin 30.1 pg (27.0-31.2); Mean Corpuscular Volume 92.4 fl (80-94); Nucleated Red Blood Cells % 0 %; Platelet Count 233 K/mm3 (142-424); Red Blood Count 4.45 M/mm3 (4.60-6.20); Red Cell Distribution Width-SD 46.0 fL; White Blood Count 11.1 K/mm3 (4.8-10.8)
[2025-06-09 21:48] LABS: Lactate Venous 1.7 mmol/L (0.4-2.0); VBG HCO3 26.8 mmol/L (23-30); VBG PCO2 44.5 mmol/L (35-51); VBG PH 7.40 mmol/L (7.31-7.41); VBG PO2 39.3 mmol/L (28-40)
[2025-06-09] MEDS: LACTATED RINGERS 1000ML 1,000 ML 999 ML IV (21:52)
[2025-06-09] MEDS: ONDANSETRON 4MG/2ML VIAL 4 MG IV (21:53)
[2025-06-09] MEDS: MORPHINE 4MG/ML SYRINGE 4 MG IV (21:53)
[2025-06-09 21:55] LABS: Albumin Level 3.5 g/dl (3.5-5.0); Chloride 93 mmol/L (98-107); Potassium 4.6 mmoL/L (3.5-5.1); Sodium 130 mmol/L (136-145)
[2025-06-09 21:56] LABS: Microscopic, Urine URINE MICROSCOPIC (MICROSCOPIC)
[2025-06-09 21:57] LABS: Bilirubin,Urine Negative (Negative); Color,Urine YELLOW (Yellow); Glucose,Urine (UA) TRACE (Negative); Ketones,Urine Negative (Negative); Leukocyte Esterase,Urine Negative (Negative); PH,Urine 7.5 (5.0-8.5); Protein,Urine Negative (Negative); Specific Gravity, Urine 1.015 (1.005-1.030); Urobilinogen,Urine 4.0 EU/dl (0.2)
[2025-06-09 21:58] LABS: Alanine Aminotransferase 25 U/L (12-78); Albumin/Globulin Ratio 1.2 (1.1-1.8); Alkaline Phosphatase 78 U/L (38-126); Anion Gap 8.6 mEq/L (5-15); Aspartate Amino Transferase 32 U/L (17-59); Bilirubin,Total 0.8 mg/dl (0.2-1.3); Blood Urea Nitrogen 20 mg/dl (9-20); Carbon Dioxide 33 mmol/L (22.0-30.0); Creatinine Clearance Estimated 64 mL/min (50-200); Creatinine,Serum 1.20 mg/dl (0.66-1.25); Estimated Glomerular Filt Rate 57 ml/min (>60); GFR (African American) 69 ML/MIN (>60); Globulin 3.0 g/dL (1.3-3.2); Lipase 71 U/L (23-300); Total Protein,Serum 6.5 g/dl (6.3-8.2)
[2025-06-09 21:59] LABS: Calcium 8.6 mg/dl (8.4-10.2); Glucose 253 mg/dl (74-100)
[2025-06-09 22:07] LABS: NT Pro Brain Natriuretic Pep. 587 pg/mL (0-450)
[2025-06-09 22:11] LABS: Troponin I < 0.01 ng/ml (0.00-0.034)
[2025-06-09] MEDS: SODIUM CHLORIDE 0.9% 10ML SYR (RAD ONLY) 10 ML IV (22:14)
[2025-06-09] MEDS: 0.9 % SODIUM CHLORIDE 50 ML VIAL IV (22:14)
[2025-06-09] MEDS: IOPAMIDOL-370 (76%);100ML BOTTLE 80 ML IV (22:15)
[2025-06-09] MEDS: PIPERACILLIN/TAZO 4.5 GM in 0.9 % SODIUM CHLORIDE 100 ML IV (22:34)
[2025-06-10] VITALS (9 sets, daily range): BP systolic 100–159; BP diastolic 53–93; PULSE 80–109; RESP 12–20; TEMP 36.7–37.3; O2SAT 2–98; BMI 37.0
--- NOTE | 2025-06-10 00:30 | PC.NURSE ---
report called to Katie Guzman RN
--- NOTE | 2025-06-10 00:59 | PC.NURSE ---
Patient arrived to floor via stretcher from ED at 00:55.
[2025-06-10] MEDS: MORPHINE 4MG/ML SYRINGE 4 MG IV (01:06)
[2025-06-10] MEDS: LACTATED RINGERS 1000ML 1,000 ML 50 ML IV (01:36)
[2025-06-10 01:53] LABS: Troponin I < 0.01 ng/ml (0.00-0.034)
[2025-06-10 02:31] LABS: POC Glucose,Bedside 202 gm/dL (70-110)
[2025-06-10] MEDS: HYDROMORPHONE 2MG/ML SYRINGE 1 MG IV ×5 (02:51→19:42)
[2025-06-10] MEDS: ONDANSETRON 4MG/2ML VIAL 4 MG IV ×3 (02:56→19:42)
[2025-06-10] MEDS: PIPERACILLIN/TAZO 4.5 GM in 0.9 % SODIUM CHLORIDE 100 ML IV ×4 (06:03→22:30)
--- NOTE | 2025-06-10 06:10 | EXP.HP ---
History of Present Illness *Admission Date: 06/10/25 *Reason for visit:: Abdominal pain with nausea and vomiting *History of present illness: Patient is an 85-year-old male with a past medical tree significant for dementia, CHF, atrial fibrillation on chronic anticoagulation, osteoarthritis, type 2 diabetes mellitus. Patient presents to [facility] due to abdominal pain, nausea vomiting. Recently underwent cholecystectomy with Dr. Wen. GRICELDA drain in place from hospital discharge due to continued output. Family at bedside reports continued large GRICELDA output. States patient had some abdominal pain prior to discharge but has significantly become worse over the last day. Reports right upper quadrant pain with nausea and vomiting. Denies fever, diarrhea, chest pain, shortness of breath. ED evaluation included laboratory workup and imaging. CTA chest imaging reviewed and noted, 8.4 cm loculated fluid and gas collection in the gallbladder fossa. Recent cholecystectomy, this is compatible with postoperative biloma or absces. Blood culture, urine culture/pending. WBC 11.1, sodium 130, glucose 202. Hemodynamically stable, 2 L nasal cannula saturations. Alert and oriented to person and place. Received IV fluids and Zosyn. [facility] Disclaimer: The information contained in this section may have been updated after the patient was seen, as this information can be updated by other users. Medical History (Updated 06/10/25 @ 06:33 by Goldie Prince APRN) Dementia COPD (chronic obstructive pulmonary disease) Abscess of lung Acute diverticulitis Arthritis Diabetes Afib Hypotension Abnormal electrocardiography Dyspnea Surgical History History of total right knee replacement Family History Other Family history of cancer Social History Smoking Status: Former smoker smoking status stop date: 25 years ago alcohol intake: former substance use type: denies use current occupational status: disabled Travel in the last 8 weeks?: Inside the [place] household members: spouse and children housing: house Have you lived/traveled outside US in past 30 days?: No Contact w/someone who lives/traveled outside US past 30 days?: No Exposure to someone with infectious disease in past 14 days?: No Do you have a fever (greater than 100.4 F or 38 C)?: No Have you tested positive for COVID-19?: No Exposed to someone with COVID-19 in past 14 days?: No Do you have a sore throat?: No Do you have a cough?: No Do you have any weakness?: No Do you have any diarrhea?: No Are you experiencing any unusual bleeding?: No Do you have any muscle aches/pain?: No Do you have any abdominal pain?: No Are you experiencing loss of taste or smell?: No Other Medical History Have you received the Flu Vaccine for this season: No Have you received the Pneumonia Vaccine: No Review of Systems Review of Systems Review of systems:: pertinent systems reviewed and negative unless documented below Constitutional Constitutional: Reports system reviewed and no additional complaints, except as documented and Reports as per HPI Eyes Eyes: Reports system reviewed and no additional complaints, except as documented and Reports as per HPI ENT Ears, Nose, Mouth, and Throat: Reports system reviewed and no additional complaints, except as documented *Cardiovascular Cardiovascular: Reports pedal edema *Respiratory Respiratory: Reports system reviewed and no additional complaints, except as documented *Gastrointestinal Gastrointestinal: Reports abdominal pain Comments: Right upper GRICELDA drain *Genitourinary Genitourinary: Reports system reviewed and no additional complaints, except as documented *Musculoskeletal Musculoskeletal: Reports arthralgias, Reports muscle weakness and Reports myalgias Comments: Bilateral knee pain Integumentary/Breasts Comments: GRICELDA insertion site clean dry intact, mild redness around insertion site *Neurologic Neurologic: Reports system reviewed and no additional complaints, except as documented Comments: Dementia history Psychiatric Psychiatric: Reports system reviewed and no additional complaints, except as documented Endocrine Endocrine: Reports system reviewed and no additional complaints, except as documented Meds Home Medications and Allergies Home Medications ?Medication ?Instructions ?Recorded ?Confirmed ?Type finasteride 5 mg tablet 5 mg PO DAILY 05/12/21 06/10/25 History metformin 1,000 mg tablet 1,000 mg PO BIDWMEAL 05/12/21 06/10/25 History Held on 06/06/25. Instructions: Resume on 06/09/25. Hold during postoperative period until Wednesday. tamsulosin 0.4 mg capsule 0.4 mg PO HS 03/26/22 06/10/25 History rivaroxaban 20 mg tablet 20 mg PO QPMWITHMEAL 04/27/22 06/10/25 History esomeprazole magnesium 40 mg 40 mg PO DAILY 12/05/22 06/10/25 History capsule,delayed release insulin degludec 100 unit/mL (3 28 unit SQ DAILY 12/05/22 06/10/25 History mL) subcutaneous pen (Tresiba FlexTouch U-100 insulin) midodrine 5 mg tablet 10 mg PO TID 12/05/22 06/10/25 History ferrous sulfate 325 mg (65 mg 325 mg PO DAILY 11/27/23 06/10/25 History iron) tablet (FeroSul) alprazolam 0.5 mg tablet 0.5 mg PO BIDP PRN Anxiety 10 days 11/29/23 06/10/25 Rx #20 tabs gabapentin 400 mg capsule 400 mg PO BID 06/02/25 06/10/25 History memantine 5 mg tablet 5 mg PO BID 06/02/25 06/10/25 History oxycodone-acetaminophen 7.5 mg-325 1 tab PO Q6HP PRN Severe Pain 06/02/25 06/10/25 History mg tablet (Scale Score 7-10) potassium chloride 10 mEq 10 meq PO DAILY 06/02/25 06/10/25 History capsule,extended release triamcinolone acetonide 0.1 % 1 applic topical BID 06/02/25 06/10/25 History topical cream quetiapine 50 mg tablet 50 mg PO HS 06/03/25 06/10/25 History New Prescriptions to Start Prescriptions: Allergies Allergy/AdvReac Type Severity Reaction Status Date / Time No Known Allergies Allergy Verified 06/09/25 21:44 Exam Data for Last 24 hours Vital signs and Labs for Last 24 Hours: Temp Pulse Resp BP Pulse Ox O2 Del Method O2 Flow Rate 98.2 F 109 H 17 159/83 H 96 Nasal Cannula 2 06/10/25 04:00 06/10/25 04:00 06/10/25 04:00 06/10/25 04:00 06/10/25 04:00 06/10/25 05:00 06/10/25 05:00 Laboratory Results - last 24 hr 06/09/25 21:30: WBC 11.1 H, RBC 4.45 L, Hgb 13.4 L, Hct 41.1 L, MCV 92.4, MCH 30.1, MCHC 32.6, RDW 13.7, Plt Count 233 D, MPV 9.8, Neut % (Auto) 70.1, Lymph % (Auto) 17.4, [place] % (Auto) 8.2, Eos % (Auto) 2.0, Baso % (Auto) 0.4, Neut # (Auto) 7.8, Lymph # (Auto) 1.9, [place] # (Auto) 0.9, Eos # (Auto) 0.2, Baso # (Auto) 0.0, Sodium 130 L, Potassium 4.6, Chloride 93 L, Carbon Dioxide 33 H, Anion Gap 8.6, BUN 20, Creatinine 1.20, Estimated Creat Clear 64, Estimated GFR 57 L, Est GFR ( Amer) 69, Glucose 253 H, Calcium 8.6, Total Bilirubin 0.8, AST 32, ALT 25, Alkaline Phosphatase 78, Troponin I < 0.01, NT-Pro-B Natriuret Pep 587 H, Total Protein 6.5, Albumin 3.5, Globulin 3.0, Albumin/Globulin Ratio 1.2, Lipase 71 06/09/25 21:41: VBG pH 7.40, VBG pCO2 44.5, VBG pO2 39.3, VBG HCO3 26.8, VBG Total CO2 28.1 H, VBG O2 Saturation 70.9 H, VBG Base Excess 1.9, VBG Lactic Acid 1.7 06/09/25 21:52: Urine Color Yellow, Urine Appearance Clear, Urine pH 7.5, Ur Specific [place] 1.015, Urine Protein Negative, Urine Glucose (UA) Trace, Urine Ketones Negative, Urine Blood Negative, Urine Nitrate Negative, Urine Bilirubin Negative, Urine Urobilinogen 4.0, Ur Leukocyte Esterase Negative, Urine RBC None, Urine WBC None, Ur Squamous Epith Cells None, Urine Bacteria None 06/10/25 01:25: Troponin I < 0.01 06/10/25 02:19: POC Glucose 202 H I & O for Last 24 hours: Intake & Output 06/07/25 06/08/25 06/09/25 06/10/25 23:59 23:59 23:59 23:59 Intake Total 1100 / 1100 Output Total Balance 1100 / 1100 - Weight 102.058 kg 104.734 kg *Routine HEENT Exam Head: Present normocephalic Eye: Present EOMI and normal accommodation ENT: Present mucous membranes moist *Routine Respiratory Exam Respiratory: Present normal respiratory effort *Routine Cardiovascular Exam Cardiovascular: Present irregular rhythm *Routine Abdominal Exam Abdominal: Present tenderness (Right upper quadrant abdominal tenderness) and other (Right upper GRICELDA drain-clean dry and intact) *Routine Rectal Exam Rectal:: deferred *Routine Genitalia Exam Genitalia:: deferred Assessment and Plan *Assessment and plan (1) Intra-abdominal abscess: Status: Acute Category: Medical Code(s): K65.1 - Peritoneal abscess (2) Atrial fibrillation: Status: Acute Qualifiers: Atrial fibrillation type: unspecified chronic Qualified Code(s): I48.20 - Chronic atrial fibrillation, unspecified Category: Medical Code(s): I48.91 - Unspecified atrial fibrillation (3) Chronic anticoagulation: Status: Acute Category: Medical Code(s): Z79.01 - MCFP (current) use of anticoagulants (4) T2DM (type 2 diabetes mellitus): Status: Acute Qualifiers: Diabetes mellitus complication status: without complication Diabetes mellitus adjunct faculty for medical terminology insulin use: without adjunct faculty for medical terminology use Qualified Code(s): E11.9 - Type 2 diabetes mellitus without complications Category: Medical Code(s): E11.9 - Type 2 diabetes mellitus without complications (5) Osteoarthritis of left knee: Status: Acute Qualifiers: Osteoarthritis type: primary Qualified Code(s): M17.12 - Unilateral primary osteoarthritis, left knee Category: Medical Code(s): M17.12 - Unilateral primary osteoarthritis, left knee Plan 1. Intra-abdominal abscess: Right upper quadrant abdominal pain. Recently underwent cholecystectomy per Dr. Wen. Discharged home with GRICELDA drain to large output. Returning due to severe right upper abdominal pain with associated nausea vomiting. CT imaging obtained as noted above, noted 8.4 cm loculated fluid and gas collection in gallbladder fossa with postoperative biloma or abscess. NPO for now. Gentle IV fluids due to CHF history monitor for hypervolemia. GRICELDA drain present-right upper quadrant. Family at bedside reported large output. Surgery consult placed for further evaluation/input. 2. Atrial fibrillation/chronic anticoagulation: Currently controlled, continue to monitor on telemetry. Chronic anticoagulation Rivaroxban-held until further evaluation per surgical team. SCD's 3. Type 2 diabetes mellitus: Noted to be slightly hyperglycemic on arrival to the emergency department glucose of 202, insulin sliding scale with Accu-Cheks Q6 while NPO. 4. Osteoarthritis of the left knee: Patient reports significant pain in both knees. Reports chronic ongoing pain bilateral knees with left right. This patient's case was discussed with the emergency department provider and agree to admit patient for further evaluation/treatment
[2025-06-10 06:21] LABS: POC Glucose,Bedside 220 gm/dL (70-110)
[2025-06-10 06:44] LABS: Troponin I < 0.01 ng/ml (0.00-0.034)
--- NOTE | 2025-06-10 08:33 | EXP.SURG.CON ---
History of Present Illness *Admission Date: 06/10/25 *Reason for visit:: Possible abscess *History of present illness: Patient is an 85-year-old male who is 8 days postoperative from laparoscopic cholecystectomy on 06/02/[address] Tammie Dempsey at which time he was found to have acute cholecystitis verging on gangrenous cholecystitis with an intense rind of chronic inflammation surrounding the gallbladder. There was noted to be extensive oozing from the gallbladder fossa which improved once the gallbladder was removed. Liver bed bleeding was controlled with cautery and application of Mady. He had a GRICELDA drain placed. Throughout his hospital stay this was dark brown. On 06/05/2025 it was sent for bilirubin but this is a send out lab and is still pending at the time of this dictation. He remained in inpatient and convalesced slowly. He did undergo a HIDA scan prior to discharge to evaluate for any biliary leak from the bile ducts or gallbladder fossa of which none was noted. There was evidence of bile reflux into the stomach. Consideration was being given for possible drain removal however this was left in place due to small to moderate output. Prior to discharge his white blood cell count was 5800. Liver function test were normal. He was apparently brought back to the emergency department in the evening of 06/09/2025 via EMS complaining of worsening abdominal pain in the right upper quadrant. Evaluation revealed mild leukocytosis of 11,000. BNP 587. He underwent a CT scan which revealed findings of 8.4 cm loculated fluid and gas collection in the gallbladder fossa. This was felt to be possible postoperative biloma or abscess. Drain has continued to function. He was admitted for inpatient management and surgical consultation Patient's biggest complaint is pain in his knees and some pain in his heels. . [facility] Disclaimer: The information contained in this section may have been updated after the patient was seen, as this information can be updated by other users. Medical History (Updated 06/10/25 @ 09:17 by Myke Wen MD) Dementia COPD (chronic obstructive pulmonary disease) Abscess of lung Acute diverticulitis Arthritis Diabetes Afib Hypotension Abnormal electrocardiography Dyspnea Surgical History History of total right knee replacement Family History Other Family history of cancer Social History Smoking Status: Former smoker smoking status stop date: 25 years ago alcohol intake: former substance use type: denies use current occupational status: disabled Travel in the last 8 weeks?: [place] the [place] household members: spouse and children housing: house Have you lived/traveled outside US in past 30 days?: No Contact w/someone who lives/traveled outside US past 30 days?: No Exposure to someone with infectious disease in past 14 days?: No Do you have a fever (greater than 100.4 F or 38 C)?: No Have you tested positive for COVID-19?: No Exposed to someone with COVID-19 in past 14 days?: No Do you have a sore throat?: No Do you have a cough?: No Do you have any weakness?: No Do you have any diarrhea?: No Are you experiencing any unusual bleeding?: No Do you have any muscle aches/pain?: No Do you have any abdominal pain?: No Are you experiencing loss of taste or smell?: No Review of Systems *Neurologic Neurologic: Reports system reviewed and no additional complaints, except as documented Meds Home Medications and Allergies Home Medications ?Medication ?Instructions ?Recorded ?Confirmed ?Type finasteride 5 mg tablet 5 mg PO DAILY 05/12/21 06/10/25 History metformin 1,000 mg tablet 1,000 mg PO BIDWMEAL 05/12/21 06/10/25 History Held on 06/06/25. Instructions: Resume on 06/09/25. Hold during postoperative period until Wednesday. tamsulosin 0.4 mg capsule 0.4 mg PO HS 03/26/22 06/10/25 History rivaroxaban 20 mg tablet 20 mg PO QPMWITHMEAL 04/27/22 06/10/25 History esomeprazole magnesium 40 mg 40 mg PO DAILY 12/05/22 06/10/25 History capsule,delayed release insulin degludec 100 unit/mL (3 28 unit SQ DAILY 12/05/22 06/10/25 History mL) subcutaneous pen (Tresiba FlexTouch U-100 insulin) midodrine 5 mg tablet 10 mg PO TID 12/05/22 06/10/25 History ferrous sulfate 325 mg (65 mg 325 mg PO DAILY 11/27/23 06/10/25 History iron) tablet (FeroSul) alprazolam 0.5 mg tablet 0.5 mg PO BIDP PRN Anxiety 10 days 11/29/23 06/10/25 Rx #20 tabs gabapentin 400 mg capsule 400 mg PO BID 06/02/25 06/10/25 History memantine 5 mg tablet 5 mg PO BID 06/02/25 06/10/25 History oxycodone-acetaminophen 7.5 mg-325 1 tab PO Q6HP PRN Severe Pain 06/02/25 06/10/25 History mg tablet (Scale Score 7-10) potassium chloride 10 mEq 10 meq PO DAILY 06/02/25 06/10/25 History capsule,extended release triamcinolone acetonide 0.1 % 1 applic topical BID 06/02/25 06/10/25 History topical cream quetiapine 50 mg tablet 50 mg PO HS 06/03/25 06/10/25 History New Prescriptions to Start Prescriptions: Allergies Allergy/AdvReac Type Severity Reaction Status Date / Time No Known Allergies Allergy Verified 06/09/25 21:44 Exam (Inpt) Vital signs and Labs for Last 24 Hours: Temp Pulse Resp BP Pulse Ox O2 Del Method O2 Flow Rate 98.2 F 109 H 17 159/83 H 96 Nasal Cannula 2 06/10/25 04:00 06/10/25 04:00 06/10/25 04:00 06/10/25 04:00 06/10/25 04:00 06/10/25 06:40 06/10/25 06:40 Laboratory Results - last 24 hr 06/09/25 21:30: WBC 11.1 H, RBC 4.45 L, Hgb 13.4 L, Hct 41.1 L, MCV 92.4, MCH 30.1, MCHC 32.6, RDW 13.7, Plt Count 233 D, MPV 9.8, Neut % (Auto) 70.1, Lymph % (Auto) 17.4, [place] % (Auto) 8.2, Eos % (Auto) 2.0, Baso % (Auto) 0.4, Neut # (Auto) 7.8, Lymph # (Auto) 1.9, [place] # (Auto) 0.9, Eos # (Auto) 0.2, Baso # (Auto) 0.0, Sodium 130 L, Potassium 4.6, Chloride 93 L, Carbon Dioxide 33 H, Anion Gap 8.6, BUN 20, Creatinine 1.20, Estimated Creat Clear 64, Estimated GFR 57 L, Est GFR ( Amer) 69, Glucose 253 H, Calcium 8.6, Total Bilirubin 0.8, AST 32, ALT 25, Alkaline Phosphatase 78, Troponin I < 0.01, NT-Pro-B Natriuret Pep 587 H, Total Protein 6.5, Albumin 3.5, Globulin 3.0, Albumin/Globulin Ratio 1.2, Lipase 71 06/09/25 21:41: VBG pH 7.40, VBG pCO2 44.5, VBG pO2 39.3, VBG HCO3 26.8, VBG Total CO2 28.1 H, VBG O2 Saturation 70.9 H, VBG Base Excess 1.9, VBG Lactic Acid 1.7 06/09/25 21:52: Urine Color Yellow, Urine Appearance Clear, Urine pH 7.5, Ur Specific [place] 1.015, Urine Protein Negative, Urine Glucose (UA) Trace, Urine Ketones Negative, Urine Blood Negative, Urine Nitrate Negative, Urine Bilirubin Negative, Urine Urobilinogen 4.0, Ur Leukocyte Esterase Negative, Urine RBC None, Urine WBC None, Ur Squamous Epith Cells None, Urine Bacteria None 06/10/25 01:25: Troponin I < 0.01 06/10/25 02:19: POC Glucose 202 H 06/10/25 05:20: Troponin I < 0.01 06/10/25 06:01: POC Glucose 220 H I & O for Labs for Last 24 Hours: Intake & Output 06/07/25 06/08/25 06/09/25 06/10/25 11:59 11:59 11:59 11:59 Intake Total 1200 / 1200 Output Total Balance 1180 / 1180 Weight 230 lb 14.383 oz GI: Present soft and tenderness Comments:: Incisions clean. GRICELDA drain with minimal serous output. Results Labs 06/09/25 21:30 06/09/25 21:30 Labs: Laboratory Results - last 24 hr 06/09/25 21:30: WBC 11.1 H, RBC 4.45 L, Hgb 13.4 L, Hct 41.1 L, MCV 92.4, MCH 30.1, MCHC 32.6, RDW 13.7, Plt Count 233 D, MPV 9.8, Neut % (Auto) 70.1, Lymph % (Auto) 17.4, [place] % (Auto) 8.2, Eos % (Auto) 2.0, Baso % (Auto) 0.4, Neut # (Auto) 7.8, Lymph # (Auto) 1.9, [place] # (Auto) 0.9, Eos # (Auto) 0.2, Baso # (Auto) 0.0, Sodium 130 L, Potassium 4.6, Chloride 93 L, Carbon Dioxide 33 H, Anion Gap 8.6, BUN 20, Creatinine 1.20, Estimated Creat Clear 64, Estimated GFR 57 L, Est GFR ( Amer) 69, Glucose 253 H, Calcium 8.6, Total Bilirubin 0.8, AST 32, ALT 25, Alkaline Phosphatase 78, Troponin I < 0.01, NT-Pro-B Natriuret Pep 587 H, Total Protein 6.5, Albumin 3.5, Globulin 3.0, Albumin/Globulin Ratio 1.2, Lipase 71 06/09/25 21:41: VBG pH 7.40, VBG pCO2 44.5, VBG pO2 39.3, VBG HCO3 26.8, VBG Total CO2 28.1 H, VBG O2 Saturation 70.9 H, VBG Base Excess 1.9, VBG Lactic Acid 1.7 06/09/25 21:52: Urine Color Yellow, Urine Appearance Clear, Urine pH 7.5, Ur Specific [place] 1.015, Urine Protein Negative, Urine Glucose (UA) Trace, Urine Ketones Negative, Urine Blood Negative, Urine Nitrate Negative, Urine Bilirubin Negative, Urine Urobilinogen 4.0, Ur Leukocyte Esterase Negative, Urine RBC None, Urine WBC None, Ur Squamous Epith Cells None, Urine Bacteria None 06/10/25 01:25: Troponin I < 0.01 06/10/25 02:19: POC Glucose 202 H 06/10/25 05:20: Troponin I < 0.01 06/10/25 06:01: POC Glucose 220 H Assessment and Plan *Assessment and plan (1) Postoperative pain: Status: Acute Category: Medical Code(s): G89.18 - Other acute postprocedural pain Plan There is a 8 cm loculated fluid collection in the gallbladder fossa. Unclear if this is abscess or biloma. The GRICELDA drain is somewhat inferior to this but is only putting out some scant serous material. This could be hematoma within the gallbladder fossa which would be expected given the anticoagulation and degree of his cholecystitis a week ago. At this time recommend IV antibiotics. No need for any surgical or procedural intervention in the immediate timeframe. If he shows evidence of an infected hematoma or potential abscess within the gallbladder fossa could require interventional radiology drainage as it appears as though the GRICELDA drain is actually inferior to this fluid pocket.
[2025-06-10 17:07] LABS: POC Glucose,Bedside 218 gm/dL (70-110)
--- NOTE | 2025-06-10 17:37 | PC.NURSE ---
patient has been alert and oriented x4 with occasional periods of confusion. Q2 turns to the left side and supine, patient does not tolerate being turned to the right due to abdominal pain. Redness noted to bilateral heels, foam dressings applied and heels floated using pillows.
--- NOTE | 2025-06-10 18:26 | PC.NURSE ---
30ml serosanguinous fluid emptied from GRICELDA drain. patient c/o of 8 abd pain, treated per OCT.
[2025-06-10] MEDS: OXYCODONE 7.5MG W/APAP 325MG TABLET 1 EACH PO (21:36)
[2025-06-10 22:05] LABS: POC Glucose,Bedside 230 gm/dL (70-110)
[2025-06-10 22:15] LABS: Hematocrit 37.4 % (42.0-52.0); Hemoglobin 12.0 g/dL (14.1-18.0); Immature Granulocytes % 0.9 %; Mean Corpuscular HGB Conc 32.1 g/dL (31.8-35.4); Mean Corpuscular Hemoglobin 29.9 pg (27.0-31.2); Mean Corpuscular Volume 93.3 fl (80-94); Nucleated Red Blood Cells % 0 %; Platelet Count 204 K/mm3 (142-424); Red Blood Count 4.01 M/mm3 (4.60-6.20); Red Cell Distribution Width-SD 46.1 fL; White Blood Count 13.8 K/mm3 (4.8-10.8)
[2025-06-10 22:27] LABS: Anion Gap 11.2 mEq/L (5-15); Blood Urea Nitrogen 19 mg/dl (9-20); Calcium 8.6 mg/dl (8.4-10.2); Carbon Dioxide 28 mmol/L (22.0-30.0); Chloride 96 mmol/L (98-107); Creatinine Clearance Estimated 65 mL/min (50-200); Creatinine,Serum 1.20 mg/dl (0.66-1.25); Estimated Glomerular Filt Rate 57 ml/min (>60); GFR (African American) 69 ML/MIN (>60); Glucose 235 mg/dl (74-100); Potassium 4.2 mmoL/L (3.5-5.1); Sodium 131 mmol/L (136-145)
--- NOTE | 2025-06-10 23:31 | CT_ITS ---
PROCEDURE INFORMATION: Exam: CT Abdomen And Pelvis With Contrast Exam date and time: 06/11/2025 12:25 AM Age: 85 years old Clinical indication: Other: Distention; Prior surgery; Surgery date: 3-7 days post-operative; Surgery type: Unknown TECHNIQUE: Imaging protocol: Computed tomography of the abdomen and pelvis with contrast. Radiation optimization: All CT scans at this facility use at least one of these dose optimization techniques: automated exposure control; mA and/or kV adjustment per patient size (includes targeted exams where dose is matched to clinical indication); or iterative reconstruction. Contrast material: ISOVUE; Contrast volume: 75 ml; Contrast route: IV; COMPARISON: CT ABDOMEN PELVIS W CON 06/09/2025 10:15 PM FINDINGS: Lungs: Scattered areas of atelectasis in the lung bases. Liver: Normal. No mass. Gallbladder and biliary ducts: Patient is status post cholecystectomy. There is a percutaneous drain in the right upper quadrant with tip located below the fluid collection. In the gallbladder fossa there is and ill-defined fluid collection containing locules of gas which could indicate a developing abscess. This area measures 6 x 6 cm. There is surrounding stranding in the fat. Pancreas: Normal. No ductal dilation. Spleen: Normal. No splenomegaly. Adrenal glands: Normal. No mass. Kidneys and ureters: Multiple simple cysts bilateral kidneys requiring no further follow-up. Stomach and bowel: Diverticulosis in the sigmoid and transverse colon without diverticulitis. Appendix: No evidence of appendicitis. Intraperitoneal space: Unremarkable. No free air. No significant fluid collection. Vasculature: Unremarkable. No abdominal aortic aneurysm. Lymph nodes: Unremarkable. No enlarged lymph nodes. Urinary bladder: Unremarkable as visualized. Reproductive: Unremarkable as visualized. Bones/joints: There is postsurgical changes left hip with intramedullary deann and dynamic compression screw fixation. Multilevel degenerative changes in the lumbar spine. Soft tissues: Unremarkable. IMPRESSION: Patient is status post cholecystectomy. There is a percutaneous drain in the right upper quadrant and the tip of the drain is not in the abscess. It is below the abscess.. In the gallbladder fossa there is an ill-defined fluid collection containing locules of gas which reflects known abscess. This area measures 6 x 6 cm and not significantly changed from previous exam. There is surrounding stranding in the fat. COMMENTS: Consistent with the [employer]'s Incidental Findings Committee white paper (J Am Jacobo Radiol 2018): Any incidental renal lesion less than 1 cm or classified as too small to characterize, or any incidental cystic renal lesion characterized as simple-appearing, is likely benign. No follow-up imaging is recommended for these lesions per consensus recommendations based on imaging criteria.
[2025-06-11] VITALS (8 sets, daily range): BP systolic 112–135; BP diastolic 61–82; PULSE 80–100; RESP 14–23; TEMP 36.6–37.9; O2SAT 91–97; BMI 35.6
[2025-06-11] MEDS: SODIUM CHLORIDE 0.9% 10ML SYR (RAD ONLY) 10 ML IV (00:44)
[2025-06-11] MEDS: IOPAMIDOL-370 (76%);100ML BOTTLE 75 ML IV (00:44)
[2025-06-11] MEDS: PIPERACILLIN/TAZO 4.5 GM in 0.9 % SODIUM CHLORIDE 100 ML IV ×3 (05:47→16:30)
[2025-06-11] MEDS: OXYCODONE 7.5MG W/APAP 325MG TABLET 1 EACH PO ×3 (05:51→20:08)
[2025-06-11 06:01] LABS: POC Glucose,Bedside 198 gm/dL (70-110)
--- NOTE | 2025-06-11 07:10 | EXP.SURG.PN ---
Subjective Narrative: Patient had increased abdominal pain and swelling yesterday. Underwent repeat CT scan. This was essentially unchanged. He states that he feels somewhat better today. Exam Data for Last 24 hours Vital signs and Labs for Last 24 Hours: Temp Pulse Resp BP Pulse Ox O2 Del Method O2 Flow Rate 98.8 F 100 H 16 112/61 96 Room Air 2 06/11/25 04:00 06/11/25 04:00 06/11/25 04:00 06/11/25 04:00 06/11/25 04:00 06/11/25 06:18 06/11/25 05:00 Laboratory Results - last 24 hr 06/10/25 16:27: POC Glucose 218 H 06/10/25 21:38: POC Glucose 230 H 06/10/25 22:08: WBC 13.8 H, RBC 4.01 L, Hgb 12.0 L, Hct 37.4 L, MCV 93.3, MCH 29.9, MCHC 32.1, RDW 13.5, Plt Count 204, MPV 9.6, Neut % (Auto) 80.5 H, Lymph % (Auto) 10.9, [place] % (Auto) 6.8, Eos % (Auto) 0.5, Baso % (Auto) 0.4, Neut # (Auto) 11.1 H, Lymph # (Auto) 1.5, [place] # (Auto) 0.9, Eos # (Auto) 0.1, Baso # (Auto) 0.1, Sodium 131 L, Potassium 4.2, Chloride 96 L, Carbon Dioxide 28, Anion Gap 11.2, BUN 19, Creatinine 1.20, Estimated Creat Clear 65, Estimated GFR 57 L, Est GFR ( Amer) 69, Glucose 235 H, Calcium 8.6 06/10/25 23:31: Lactate 0.9 06/11/25 05:46: POC Glucose 198 H I & O for Last 24 hours: Intake & Output 06/08/25 06/09/25 06/10/25 06/11/25 11:59 11:59 11:59 11:59 Intake Total 1200 / 1200 1620.000 / 1620.000 Output Total 510 / 510 Balance 1180 / 1180 1110.000 / 1110.000 Weight 230 lb 14.383 oz 221 lb 11.2 oz Microbiology Reports for the Last 24 Hours: Microbiology 06/09/25 21:30 Blood Blood Culture - Preliminary NO GROWTH AFTER 24 HOURS 06/09/25 21:45 Blood Blood Culture - Preliminary NO GROWTH AFTER 24 HOURS *Routine Abdominal Exam Abdominal: Present soft and tenderness Comments: Tender right upper quadrant Progress Note: A&P Assessment and plan (1) Postoperative pain: Status: Acute Assessment and Plan Assessment and Plan for All Diagnoses:: Reviewed CT scan. Given patient's clinical findings may need drainage of possible abscess versus hematoma in the gallbladder fossa. I will look into feasibility of possible interventional radiology versus laparoscopy.
[2025-06-11] MEDS: HYDROMORPHONE 2MG/ML SYRINGE 0.5 MG IV ×2 (10:29→16:16)
--- NOTE | 2025-06-11 11:01 | P.PN_ITS ---
Subjective *Date: 06/11/25 *Time: 13:37 Interval history: Patient is doing okay this morning. Complains of bilateral knee pain and abdominal pain. Patient has had low-grade fever overnight, appears diaphoretic this morning. Patient had abdomen/pelvis CT which showed an ill defined fluid collection containing locules of gas which reflects known abscess measuring 6 x 6 cm. It is unchanged from the previous exam. Discussion was had with general surgery, Dr. Wen who recommends continuing to monitor patient and advance diet as tolerated. Medical Exam Vital signs and Labs for Last 24 Hours: Vital Signs Temp Pulse Pulse Resp BP Pulse Ox O2 Del Method 06/11/25 08:00 90 06/11/25 08:00 Nasal Cannula 06/11/25 07:48 98.3 F 91 H 16 112/64 97 Nasal Cannula 06/11/25 06:18 Room Air 06/11/25 05:00 Nasal Cannula 06/11/25 04:00 100 H 06/11/25 04:00 98.8 F 100 H 16 112/61 96 Room Air 06/11/25 03:00 Room Air 06/11/25 01:00 Room Air 06/11/25 00:00 100.3 F H 100 H 14 127/65 91 L Nasal Cannula 06/11/25 00:00 100 H 06/10/25 21:00 Nasal Cannula 06/10/25 20:00 95 H 06/10/25 20:00 99.2 F 96 H 20 128/73 91 L Room Air 06/10/25 17:20 Nasal Cannula 06/10/25 17:00 Nasal Cannula 06/10/25 16:00 80 06/10/25 16:00 98.9 F 92 H 16 114/70 95 Nasal Cannula 06/10/25 15:00 Nasal Cannula 06/10/25 12:09 100 H 06/10/25 11:59 98.3 F 92 H 13 106/62 L 97 Nasal Cannula 06/10/25 11:26 Nasal Cannula O2 Flow Rate 06/11/25 08:00 06/11/25 08:00 2 06/11/25 07:48 2 06/11/25 06:18 06/11/25 05:00 2 06/11/25 04:00 06/11/25 04:00 06/11/25 03:00 06/11/25 01:00 06/11/25 00:00 2 06/11/25 00:00 06/10/25 21:00 2 06/10/25 20:00 06/10/25 20:00 06/10/25 17:20 2 06/10/25 17:00 2 06/10/25 16:00 06/10/25 16:00 2.5 06/10/25 15:00 2 06/10/25 12:09 06/10/25 11:59 2.5 06/10/25 11:26 2 Intake and Output 06/10/25 06/11/25 06/11/25 23:59 07:59 15:59 Intake Total 1100.000 / 1520.000 200 / 200 Output Total 230 / 530 30 / 30 Balance 870.000 / 990.000 170 / 170 Intake: Intake, Total IV Amount 1100.000 / 1300.000 200 / 200 Lactated Ringers 1000ML 1,000 1000.000 / 1000.000 ml @ 50 mls/hr IV .Q20H [facility] Rx# :[id number] Piperacillin/Tazo 4.5 gm In 0.9 100 / 300 200 / 200 % Sodium Chloride 100 ml @ 200 mls/hr IV Q6H [facility] Rx#:[id number] Output: Output, Urine Amount 100 / 350 0 / 0 Output, Drainage Amount 130 / 180 30 / 30 Right Abdomen 130 / 180 30 / 30 Other: Number of Voids 0 Number of Unmeasured Voids 2 Weight 100.561 kg Patient Weight 06/11/25 23:59 Weight 100.561 kg Laboratory Results - last 24 hr 06/10/25 16:27: POC Glucose 218 H 06/10/25 21:38: POC Glucose 230 H 06/10/25 22:08: WBC 13.8 H, RBC 4.01 L, Hgb 12.0 L, Hct 37.4 L, MCV 93.3, MCH 29.9, MCHC 32.1, RDW 13.5, Plt Count 204, MPV 9.6, Neut % (Auto) 80.5 H, Lymph % (Auto) 10.9, [place] % (Auto) 6.8, Eos % (Auto) 0.5, Baso % (Auto) 0.4, Neut # (Auto) 11.1 H, Lymph # (Auto) 1.5, [place] # (Auto) 0.9, Eos # (Auto) 0.1, Baso # (Auto) 0.1, Sodium 131 L, Potassium 4.2, Chloride 96 L, Carbon Dioxide 28, Anion Gap 11.2, BUN 19, Creatinine 1.20, Estimated Creat Clear 65, Estimated GFR 57 L, Est GFR ( Amer) 69, Glucose 235 H, Calcium 8.6 06/10/25 23:31: Lactate 0.9 06/11/25 05:46: POC Glucose 198 H I & O for Labs for Last 24 Hours: Intake & Output 06/08/25 06/09/25 06/10/25 06/11/25 23:59 23:59 23:59 23:59 Intake Total 1100 / 1100 1520.000 / 1520.000 200 / 200 Output Total 500 / 530 / 30 Balance 1100 / 1100 1020.000 / 990.000 170 / 170 Weight 102.058 kg 104.734 kg 100.561 kg Microbiology Reports for the Last 24 Hours: Microbiology 06/09/25 21:52 Urine,Clean Catch Urine Culture - Final No growth. 06/10/25 11:35 Sputum - Expectorated Sputum Gram Stain - Final 06/09/25 21:30 Blood Blood Culture - Preliminary NO GROWTH AFTER 24 HOURS 06/09/25 21:45 Blood Blood Culture - Preliminary NO GROWTH AFTER 24 HOURS Constitutional: Present no acute distress, obese, chronically ill appearing and cooperative Head: Present atraumatic and normocephalic Neck: Present normal inspection Respiratory: Present normal respiratory effort; Absent rhonchi, wheezes or crackles Cardiac: Present Reg Rate and Rhythm, Regular Rate and Regular Rhythm GI: Present soft, tenderness (Interval improvement after surgery.) and normal bowel sounds; Absent distention, guarding or rebound Comments:: GRICELDA in right upper quadrant with scant bloody discharge. Rectal (male): Present deferred (male): Present deferred Extremities: Present full ROM; Absent normal inspection or edema Skin: Present intact; Absent erythema Comment:: Diaphoretic Neuro: Present Grossly Intact, alert, awake and moves all extremities Comment:: Oriented to self and place, at baseline per family Assessment and Plan *Assessment and plan (1) Post-operative complication: Status: Acute Qualifiers: Surgical complication system/body Area: [id number] Encounter type: initial encounter Category: Medical Code(s): T81.9XXA - Unspecified complication of procedure, initial encounter (2) Intra-abdominal abscess: Status: Acute Category: Medical Code(s): K65.1 - Peritoneal abscess (3) Dementia: Status: Acute Category: Medical Code(s): F03.90 - Unspecified dementia, unspecified severity, without behavioral disturbance, psychotic disturbance, mood disturbance, and anxiety (4) Atrial fibrillation: Status: Acute Qualifiers: Atrial fibrillation type: unspecified chronic Qualified Code(s): I48.20 - Chronic atrial fibrillation, unspecified Category: Medical Code(s): I48.91 - Unspecified atrial fibrillation (5) T2DM (type 2 diabetes mellitus): Status: Acute Qualifiers: Diabetes mellitus prison insulin use: without prison use Diabetes mellitus complication status: without complication Qualified Code(s): E11.9 - Type 2 diabetes mellitus without complications Category: Medical Code(s): E11.9 - Type 2 diabetes mellitus without complications (6) Anxiety: Status: Acute Category: Medical Code(s): F41.9 - Anxiety disorder, unspecified Plan Mr. Baxter is a 89-year-old male who presented to the emergency department on 06/09/2025 with worsening abdominal pain and chest pain. He is status post laparoscopic cholecystectomy 1 week. Currently has a GRICELDA in place. He has a primary medical history of insulin-dependent diabetes mellitus, atrial fibrillation on chronic anticoagulation, CHF, arthritis, COPD, and dementia. Workup in the emergency department was significant for mild leukocytosis, hyponatremia of 130, elevated glucose 253. Blood cultures were obtained and patient was given 1 L IV fluids and morphine for pain control. CT scan showed abscess in the gallbladder fossa, Zosyn IV initiated. Hospital medicine was consulted for admission and agreed to admit the patient. Plan of care as follows: #Intra-abdominal abscess #Status post laparoscopic cholecystectomy ? Patient was admitted to the floor and general surgery consulted. Dr. Wen recommendation of continued antibiotics and monitoring. No surgical or procedural intervention in the immediate timeframe. At this time it is unclear if it is an abscess or biloma, GRICELDA drain somewhat inferior to this area but putting out scant serous material. Could also be a hematoma given the patient is on long-term anticoagulation. ? Repeat abdomen/pelvis CT shows unchanged 6 x 6 cm area. At this time we will continue to wait on intervention, advance diet as tolerated today. If patient looks unwell clinically,may need possible interventional radiology versus laparoscopy. ? Continuing Zosyn 4.5 g every 6 hours IV. Patient has Dilaudid 0.5 mg every 3 hours as needed for pain control, Percocet 7.5/325 mg every 6 hours as needed for moderate pain. Continuing to monitor for toxicity. ?Leukocytosis noted on CBC, WBC 13.8. Continuing to trend. Kidney function stable BUN 19, creatinine 1.20. ?CBC, CMP, mag ordered for the a.m. #Atrial fibrillation #Chronic anticoagulation ? Patient placed on continuous cardiac telemetry, currently in A-fib but rate controlled. Patient takes Xarelto 20 mg daily, holding currently due to postop complication. Will follow general surgery's input. #Diabetes mellitus, type II ? Holding metformin 1000 mg twice daily and Tresiba 28 units subcu daily. ? ACHS fingersticks, SSI low intensity scale, A1c pending. #GERD: Continue esomeprazole 40 mg daily #Mood disorder: Continue Xanax twice daily as needed, quetiapine 25 mg 3 times daily. #BPH: Continue tamsulosin 0.4 mg at bedtime and finasteride 5 mg daily. #Hypotension: Patient takes midodrine 10 mg 3 times daily, blood pressure currently stable, holding medication. #Iron deficiency anemia: Continue iron 325 mg daily. Hemoglobin stable at 12.0, hematocrit 37.4. #Dementia: Continue memantine 5 mg twice daily. Full code Ambulate as tolerated VTE?SCDs Full liquid diet
[2025-06-11] MEDS: DOCUSATE SODIUM 250MG CAPSULE 250 MG PO (11:22)
[2025-06-11 11:44] LABS: POC Glucose,Bedside 183 gm/dL (70-110)
--- NOTE | 2025-06-11 13:08 | SW/DCPLANNER ---
Addendum entered by Cookie Qui 06/13/25 13:29: Faxed patient's information to [facility]. Cliff Varela Original Note: Patient is established with [facility]. Cliff Varela
[2025-06-11 14:41] LABS: Hemoglobin A1C 6.2 % (4.0-6.0)
--- OUTSIDE RECORDS SUMMARY | 2025-06-11 16:18 | XMS_ITS | Clinical Summary ---
Author Organization [facility] Address [address] [place] [id number] Care Team Providers Care Car And Yard Supervisor Name Role Phone Unknown, Attending Provider Primary [...] therelease of HIV test results or diagnoses. [id number] Allergies No known active allergies Medications [...] MD LAB BLOOD ORDERABLES Final Resul t [facility] [address] [place] [address], [facility] from Last 3 Months or Most Recently Relevant to Health Maintenance Insurance [place] [employer] Advance Directives For more information, please contact: [phone] * Full Code (Latest Code Status on File) Date Activated Date Inactivated Comments 06/26/2022 11:06 PM 06/30/2022 7:56 PM Care Teams Car And Yard Supervisor Relationship Specialty Start Date End Date Unknown, Attending Provider PCP - General 06/26/22
--- OUTSIDE RECORDS SUMMARY | 2025-06-11 16:18 | XMS_ITS | Clinical Summary ---
Author Organization [facility] Address [address] [place] [address] Care Team Providers Care Primary Grade Teacher Name Role Phone Unavailable Primary Care Provider [...]
--- OUTSIDE RECORDS SUMMARY | 2025-06-11 16:19 | XMS_ITS | Clinical Summary ---
Author Organization [employer] ([place], [place], [place], [place]) Address [address] [place] [address] Care Team Providers Care Typing Secretary Name Role Phone Chaparro Almanza MD Primary Care Provider [phone] Allergies No known active allergies Medications ALPRAZolam [...] the past 12 months, has t he [employer], gas, oil, or water [employer] threatened to shut off services in your [...] Do you speak a language other than Spanish at [facility]? No 12/29/2023 Do you want help [...] (#1) 2025 05/14/2023, 2015 Insurance [place] [id number] [facility] [employer] O MAP Advance Directives For more information, please contact: [phone] * Full Code (Latest Code Status on File) Date Activated Date Inactivated Comments 12/29/2023 6:25 PM 01/02/2024 1:11 PM Care Teams Typing Secretary Relationship Specialty Start Date End Date Chaparro Almanza MD [facility] [address] [place] [address] PCP - General General Internal Medicine 12/29/23
--- OUTSIDE RECORDS SUMMARY | 2025-06-11 16:19 | XMS_ITS | Referral Summary ---
Author Organization [employer] ([place], [place], [place], [place]) Address [address] [place] [address] Care Team Providers Care Pants Cutter Name Role Phone Chaparro Almanza MD Primary Care Provider [phone] Allergies No known active allergies Medications ALPRAZolam [...] the past 12 months, has t he [employer], gas, oil, or water [email or web address] threatened to shut off services in your [...] Do you speak a language other than Ivorian at [facility]? No 12/29/2023 Do you want help with [...] of Treatment Not on file Insurance [facility] [employer] ACCESS HMO MAP Advance Directives For more information, please contact: [phone] * Full Code (Latest Code Status on File) Date Activated Date Inactivated Comments 12/29/2023 6:25 PM 01/02/2024 1:11 PM Care Teams Pants Cutter Relationship Specialty Start Date End Date Chaparro Almanza MD [address] [facility] [address] [place] [address] PCP - General General Internal Medicine 12/29/23
--- OUTSIDE RECORDS SUMMARY | 2025-06-11 16:19 | XMS_ITS | Patient Health Record ---
Author Organization [facility] Address [address] [place] [address] [place] [address] Care Team Providers Care Therapist Speech Name Role Phone Jeremie Schneider Primary Care [...] Status W/U Status Risk Notes Problem Diverticulitis (29771331) Diverticulitis (K57.92) Active confirmed Problem Type II diabetes mellitus without complication (897414900) Controlled type 2 diabetes mellitus without complication, without long-term current use of insulin (E11.9) Active confirmed Problem Diverticulitis of colon (753753033) Diverticulitis of intestine without perforation or abscess without bleeding, unspecified part of intestinal tract (K57.92) Active confirmed Encounters Encounter Location Date Provider Diagnosis [facility] [address] [place] [address] 11/18/2024 Provider Migration Plan Of Treatment No Information Insurance Providers Payer Name Payer Address Payer Phone Subscriber Number Group Number Insured Name Patient Relationship to Insured Coverage Start Date Coverage End Date [employer] [address] [place] [address] [id number] Boubacar Baxter Self - patient is the insured Medical (General) History Medical History History ICD Code Diabetes Anxiety Arthritis Surgical History Surgery Date(Month/Year) removal of lung to clean/put back in 199 5 fractured ankles Hospitalization History Reason Date(Month/Year) removal of lung to clean/put back in 199 5 pneumonia 2020
--- OUTSIDE RECORDS SUMMARY | 2025-06-11 16:19 | XMS_ITS | Clinical Summary ---
[facility] Address [address] [place] [address] Care Team Providers Care Beading Sawyer Name Role Phone Chaparro Almanza MD Primary Care Provider [phone] Allergies No known active allergies Medications Insulin [...] from Last 3 Months Insurance [place] [id number] [employer]VANT[employer] PPO Care Teams Beading Sawyer Relationship Specialty Start Date End Date Chaparro Almanza MD [address] [place] [address] PCP - General Internal Medicine 05/29/22
[2025-06-11] MEDS: humaLOG 100 UNITS/ML 10ML VIAL (SSI) SUBCUT ×2 (16:23→20:08)
--- NOTE | 2025-06-11 16:33 | PC.NURSE ---
Pt has c/o discomfort to abdomen and legs this shift. Has also c/o being cold. No fever observed but pt has been noted to be diaphoretic or clammy this shift with also noted damp sheets. IV ABX administered. Pt given liquid diet and tolerated. Call light within reach. Safety measures in place.
[2025-06-11] MEDS: QUETIAPINE 25MG TABLET 25 MG PO (20:07)
[2025-06-11] MEDS: PANTOPRAZOLE 40MG TABLET 40 MG PO (20:07)
[2025-06-11] MEDS: TAMSULOSIN 0.4MG CAPSULE 0.4 MG PO (20:07)
[2025-06-11] MEDS: MEMANTINE 10MG TABLET 5 MG PO (20:08)
[2025-06-11] MEDS: GABAPENTIN 400MG CAPSULE 400 MG PO (20:08)
[2025-06-11 20:19] LABS: POC Glucose,Bedside 241 gm/dL (70-110)
[2025-06-12] VITALS (8 sets, daily range): BP systolic 117–135; BP diastolic 56–70; PULSE 70–106; RESP 16–21; TEMP 36.6–37.1; O2SAT 94–98; BMI 35.4
[2025-06-12] MEDS: PIPERACILLIN/TAZO 4.5 GM in 0.9 % SODIUM CHLORIDE 100 ML IV ×5 (00:09→23:31)
[2025-06-12] MEDS: humaLOG 100 UNITS/ML 10ML VIAL (SSI) SUBCUT ×3 (05:35→16:44)
[2025-06-12 05:39] LABS: POC Glucose,Bedside 181 gm/dL (70-110)
--- NOTE | 2025-06-12 06:04 | PC.NURSE ---
Addendum entered by Annetta Guzman RN 06/12/25 06:05: instead of tid due to daytime drowsiness. output-125cc of dark bravo fluid from armani drain. iv in lue accidentally pulled out by pt (still has a patent 20g iv in karl). ismael fernandez was at bs in the middle of the night and left a list of phone numbers in room if needed. incision lap sites x3 to abd with ricardo ervin with no signs of infection. pt remained cool and clamy t/o shift but not as bad as it was on nightshift yesterday. vss, rectal temp 97.9. pt also remained a&o x3 this shfit. cb within reach and bed alarm on for pt safety Original Note: pt has slept all night only c/o pain x1 early in the shift. per family, pt only takes seroquel 12.5 hs at home due to
[2025-06-12 06:12] LABS: Hematocrit 37.3 % (42.0-52.0); Hemoglobin 11.6 g/dL (14.1-18.0); Immature Granulocytes % 1.1 %; Mean Corpuscular HGB Conc 31.1 g/dL (31.8-35.4); Mean Corpuscular Hemoglobin 29.3 pg (27.0-31.2); Mean Corpuscular Volume 94.2 fl (80-94); Nucleated Red Blood Cells % 0 %; Platelet Count 235 K/mm3 (142-424); Red Blood Count 3.96 M/mm3 (4.60-6.20); Red Cell Distribution Width-SD 45.9 fL; White Blood Count 7.6 K/mm3 (4.8-10.8)
[2025-06-12 06:22] LABS: Anion Gap 8.8 mEq/L (5-15); Blood Urea Nitrogen 16 mg/dl (9-20); Calcium 8.6 mg/dl (8.4-10.2); Carbon Dioxide 31 mmol/L (22.0-30.0); Chloride 98 mmol/L (98-107); Creatinine Clearance Estimated 68 mL/min (50-200); Creatinine,Serum 1.10 mg/dl (0.66-1.25); Estimated Glomerular Filt Rate 63 ml/min (>60); GFR (African American) 77 ML/MIN (>60); Glucose 181 mg/dl (74-100); Potassium 3.8 mmoL/L (3.5-5.1); Sodium 134 mmol/L (136-145)
--- NOTE | 2025-06-12 07:48 | EXP.SURG.PN ---
Subjective Narrative: Patient states he feels sick . When asked to specify he complains of leg pain. Exam Data for Last 24 hours Vital signs and Labs for Last 24 Hours: Temp Pulse Resp BP Pulse Ox O2 Del Method O2 Flow Rate 97.9 F 81 18 131/56 L 94 L Nasal Cannula 2 06/12/25 04:00 06/12/25 04:00 06/12/25 04:00 06/12/25 04:00 06/12/25 04:00 06/12/25 06:22 06/12/25 06:22 Laboratory Results - last 24 hr 06/10/25 05:20: Hemoglobin A1c 6.2 H 06/11/25 11:24: POC Glucose 183 H 06/11/25 20:04: POC Glucose 241 H 06/12/25 05:30: POC Glucose 181 H 06/12/25 06:01: WBC 7.6 D, RBC 3.96 L, Hgb 11.6 L, Hct 37.3 L, MCV 94.2 H, MCH 29.3, MCHC 31.1 L, RDW 13.3, Plt Count 235, MPV 9.4, Neut % (Auto) 62.0, Lymph % (Auto) 25.7, [place] % (Auto) 7.4, Eos % (Auto) 3.3, Baso % (Auto) 0.5, Neut # (Auto) 4.7, Lymph # (Auto) 1.9, [place] # (Auto) 0.6, Eos # (Auto) 0.3, Baso # (Auto) 0.0, Sodium 134 L, Potassium 3.8, Chloride 98, Carbon Dioxide 31 H, Anion Gap 8.8, BUN 16, Creatinine 1.10, Estimated Creat Clear 68, Estimated GFR 63, Est GFR ( Amer) 77, Glucose 181 H, Calcium 8.6 I & O for Last 24 hours: Intake & Output 06/09/25 06/10/25 06/11/25 06/12/25 11:59 11:59 11:59 11:59 Intake Total 1200 / 1200 1720.000 / 1720.000 990 / 990 Output Total 710 / 710 1025 / 1025 Balance 1180 / 1180 1010.000 / 1010.000 -35 / -35 Weight 230 lb 14.383 oz 221 lb 11.2 oz 220 lb 14.4 oz Microbiology Reports for the Last 24 Hours: Microbiology 06/09/25 21:45 Blood Blood Culture - Preliminary NO GROWTH AFTER 48 HOURS 06/09/25 21:30 Blood Blood Culture - Preliminary NO GROWTH AFTER 48 HOURS 06/09/25 21:52 Urine,Clean Catch Urine Culture - Final No growth. 06/10/25 11:35 Sputum - Expectorated Sputum Gram Stain - Final *Routine Abdominal Exam Abdominal: Present soft Comments: GRICELDA output appears somewhat bilious at this time. Progress Note: A&P Assessment and plan (1) Post-operative complication: Status: Acute (2) Intra-abdominal abscess: Status: Acute (3) Dementia: Status: Acute (4) Atrial fibrillation: Status: Acute (5) T2DM (type 2 diabetes mellitus): Status: Acute (6) Anxiety: Status: Acute Assessment and Plan Assessment and Plan for All Diagnoses:: White blood cell count normalized. Discussed the case with the radiologist yesterday and the fluid collection in the gallbladder fossa is moderately small measuring about 7 x 2 cm. Drain placement will require drain placed through the liver. Therefore drain placement deferred at this time especially with the GRICELDA drain showing better functionality. At this time continue antibiotics and may repeat CT scan to assess for interval change of fluid pocket in the gallbladder fossa for maturation and possible drain placement. Concerning that the GRICELDA output appears somewhat bilious. When he was in inpatient last week he did have a HIDA scan which revealed no leak at that time. This may have need to be repeated. Had previously ordered for drain fluid to be sent for bilirubin 1 week ago when he was in inpatient.
--- NOTE | 2025-06-12 08:58 | HMH.PTEV ---
Physical Therapy Evaluation Rehab PT IP Evaluation Start: 06/11/25 10:47 Freq: ONCE Status: Active Protocol: Document 06/12/25 08:55 CODIE (Rec: 06/12/25 08:58 CODIE [id number]) Subjective/History History History Per H&P: Patient is an 85-year-old male with a past medical tree significant for dementia, CHF, atrial fibrillation on chronic anticoagulation, osteoarthritis , type 2 diabetes mellitus. Patient presents to [facility] due to abdominal pain, nausea vomiting. Recently underwent cholecystectomy with Dr. Wen. GRICELDA drain in place from hospital discharge due to continued output. Family at bedside reports continued large GRICELDA output. States patient had some abdominal pain prior to discharge but has significantly become worse over the last day. Reports right upper quadrant pain with nausea and vomiting. Denies fever, diarrhea, chest pain, shortness of breath . ED evaluation included laboratory workup and imaging. CTA chest imaging reviewed and noted, 8.4 cm loculated fluid and gas collection in the gallbladder fossa. Recent cholecystectomy, this is compatible with postoperative biloma or absces. Blood culture, urine culture/pending. WBC 11.1, sodium 130, glucose 202. Hemodynamically stable, 2 L nasal cannula saturations. Alert and oriented to person and place. Received IV fluids and Zosyn Subjective Subjective I can't get up Pt reports he was living with his niece and nephew in a SS home with 1 flight to enter. Pt reports a recent decline in function. Pt normally able to ambulate using a . [facility] How much help from another person do you currently need... Turning from your A little back to your side while in a flat bed without using bedrails? Moving from lying on A lot back to sitting on the side of a flat bed without using bedrails? Moving to and from a A little bed to a chair ( including a wheelchair)? Standing up from a A little chair using your arms? (e.g., wheelchair, bedside chair) Walking in hospital A lot room? Climbing 3-5 steps A lot with a railing? Mobility Score 15 Mobility Level [facility] Mobility 4 Move to chair/commode Mobility Calculator Rehab PT IP Eval Objective Appearance Patient Behavior Appropriate,Cooperative Patient Orientation Person Difficulty following none instructions Speech Pattern Clear Ambulation Patient Able to No Ambulate Balance Ability to Arise Able, uses arms to help Sitting Balance Steady, safe Standing Balance Unsteady Dynamic Sitting Good Balance Ability Dynamic Standing Poor Balance Ability Transfers Bed Transfer Ability Moderate x 1 (50% assist) Sit to Stand Bed Minimal x 1 (25% assist) Transfer Ability Rehab PT IP prob,goals,plan Problems Date of Evaluation: 06/12/25 PT IP Problems Bed Mobility,Transfers,Gait,Balance,Self care,Safety Rehab Potential Rehab Potential Good Plan PT Intervention Plan Bed Mobility,Transfers,Gait,Balance,Self care,Safety, Therapeutic Exercise Other Intervention 1-2 times Plan PT Plan Frequency Daily Duration LOS Discharge Goals Bed Transfer Ability Supervision/Stand by Sit to Stand Chair Supervision/Stand by Transfer Ability Ambulation Assistive Rolling Walker Device Ambulation Distance 10 (feet) Discharge Plan PT Discharge Plan Pt most appropriate for inpatient rehabilitation upon d /c from [facility] d/t current level of mobility. Pt would benefit from skilled PT while at [facility] to prevent further functional decline and address deficits. Eval Complexity Eval Charge Codes 14069 - Moderate Complexity PHYSICIAN CERTIFICATION: I certify the specified therapy services for Boubacar Baxter are required, authorized, and reviewed every 30 days.
[2025-06-12 09:19] LABS: Alanine Aminotransferase 21 U/L (12-78); Albumin Level 2.5 g/dl (3.5-5.0); Alkaline Phosphatase 76 U/L (38-126); Aspartate Amino Transferase 23 U/L (17-59); Bilirubin,Direct 0.3 mg/dl (0.0-0.4); Bilirubin,Indirect 0.5 mg/dL (0.0-0.9); Bilirubin,Total 0.8 mg/dl (0.2-1.3); Bilirubin,Unconjugated 0.5 mg/dL (0.0-1.1); Total Protein,Serum 5.4 g/dl (6.3-8.2)
[2025-06-12] MEDS: GABAPENTIN 400MG CAPSULE 400 MG PO ×2 (09:20→21:04)
[2025-06-12] MEDS: DOCUSATE SODIUM 250MG CAPSULE 250 MG PO (09:20)
[2025-06-12] MEDS: OXYCODONE 7.5MG W/APAP 325MG TABLET 1 EACH PO ×2 (09:21→18:24)
[2025-06-12] MEDS: FINASTERIDE 5MG TABLET 5 MG PO (09:21)
[2025-06-12] MEDS: MEMANTINE 10MG TABLET 5 MG PO ×2 (09:21→21:04)
[2025-06-12] MEDS: FERROUS SULFATE 325MG TABLET 325 MG PO (09:22)
--- NOTE | 2025-06-12 09:48 | P.PN_ITS ---
<Statement entered by Joao Blood MD - 06/17/25 15:34> Agree with plan of care as outlined by the [facility] ATTENDANT. Subjective *Date: 06/12/25 *Time: 11:17 Interval history: Patient lying in bed, complaining of bilateral knee pain and abdominal tenderness. GRICELDA drain in place with scant bilious drainage noted. General surgery recommending possible repeat CT versus HIDA scan. Patient WBC improved. Continue Zosyn IV. Medical Exam Vital signs and Labs for Last 24 Hours: Vital Signs Temp Pulse Pulse Resp BP Pulse Ox O2 Del Method 06/12/25 07:49 98 F 89 16 122/61 97 Nasal Cannula 06/12/25 06:22 Nasal Cannula 06/12/25 05:00 Nasal Cannula 06/12/25 04:00 85 06/12/25 04:00 97.9 F 81 18 131/56 L 94 L Nasal Cannula 06/12/25 03:00 Nasal Cannula 06/12/25 01:00 Nasal Cannula 06/12/25 00:00 70 06/12/25 00:00 97.9 F 70 16 119/59 L 98 Nasal Cannula 06/11/25 21:00 Nasal Cannula 06/11/25 20:00 80 06/11/25 20:00 Nasal Cannula 06/11/25 20:00 97.9 F 84 16 117/67 97 Nasal Cannula 06/11/25 18:43 Room Air 06/11/25 17:00 Room Air 06/11/25 16:00 80 06/11/25 16:00 98.4 F 83 23 119/68 97 Nasal Cannula 06/11/25 15:00 Room Air 06/11/25 13:00 Room Air 06/11/25 12:00 90 06/11/25 11:16 98.2 F 86 19 135/82 96 Nasal Cannula 06/11/25 11:00 Room Air O2 Flow Rate 06/12/25 07:49 2 06/12/25 06:22 2 06/12/25 05:00 2 06/12/25 04:00 06/12/25 04:00 2 06/12/25 03:00 2 06/12/25 01:00 2 06/12/25 00:00 06/12/25 00:00 2 06/11/25 21:00 2 06/11/25 20:00 06/11/25 20:00 2 06/11/25 20:00 2 06/11/25 18:43 06/11/25 17:00 06/11/25 16:00 06/11/25 16:00 2 06/11/25 15:00 06/11/25 13:00 06/11/25 12:00 06/11/25 11:16 2 06/11/25 11:00 Intake and Output 06/11/25 06/12/25 06/12/25 23:59 07:59 15:59 Intake Total 520 / 1090 200 / 200 Output Total 500 / 1130 125 / 125 Balance 40 75 / 75 Intake: Intake, Oral Amount 420 / 690 Intake, Total IV Amount 100 / 400 200 / 200 Piperacillin/Tazo 4.5 gm In 0.9 100 / 400 200 / 200 % Sodium Chloride 100 ml @ 200 mls/hr IV Q6H [facility] Rx#:[id number] Output: Output, Urine Amount 500 / 1100 0 / 0 Output, Drainage Amount 125 / 125 Right Abdomen 125 / 125 Other: Number of Voids 2 0 Number of Unmeasured Voids 1 Weight 100.199 kg Patient Weight 06/12/25 23:59 Weight 100.199 kg Laboratory Results - last 24 hr 06/10/25 05:20: Hemoglobin A1c 6.2 H 06/11/25 11:24: POC Glucose 183 H 06/11/25 20:04: POC Glucose 241 H 06/12/25 05:30: POC Glucose 181 H 06/12/25 06:00: Total Bilirubin 0.8, Direct Bilirubin 0.3, Conjugated Bilirubin 0.0, Indirect Bilirubin 0.5, Unconjugated Bilirubin 0.5, AST 23 D, ALT 21, Alkaline Phosphatase 76, Total Protein 5.4 L, Albumin 2.5 L 06/12/25 06:01: WBC 7.6 D, RBC 3.96 L, Hgb 11.6 L, Hct 37.3 L, MCV 94.2 H, MCH 29.3, MCHC 31.1 L, RDW 13.3, Plt Count 235, MPV 9.4, Neut % (Auto) 62.0, Lymph % (Auto) 25.7, [place] % (Auto) 7.4, Eos % (Auto) 3.3, Baso % (Auto) 0.5, Neut # (Auto) 4.7, Lymph # (Auto) 1.9, [place] # (Auto) 0.6, Eos # (Auto) 0.3, Baso # (Auto) 0.0, Sodium 134 L, Potassium 3.8, Chloride 98, Carbon Dioxide 31 H, Anion Gap 8.8, BUN 16, Creatinine 1.10, Estimated Creat Clear 68, Estimated GFR 63, Est GFR ( Amer) 77, Glucose 181 H, Calcium 8.6 I & O for Labs for Last 24 Hours: Intake & Output 06/09/25 06/10/25 06/11/25 06/12/25 23:59 23:59 23:59 23:59 Intake Total 1100 / 1100 1520.000 / 0361.771 6178 / 1090 200 / 200 Output Total 500 / 530 1130 / 1130 125 / 125 Balance 1100 / 1100 1020.000 / 990.000 -40 / -40 75 / 75 Weight 102.058 kg 104.734 kg 100.561 kg 100.199 kg Microbiology Reports for the Last 24 Hours: Microbiology 06/09/25 21:45 Blood Blood Culture - Preliminary NO GROWTH AFTER 48 HOURS 06/09/25 21:30 Blood Blood Culture - Preliminary NO GROWTH AFTER 48 HOURS 06/09/25 21:52 Urine,Clean Catch Urine Culture - Final No growth. 06/10/25 11:35 Sputum - Expectorated Sputum Gram Stain - Final Constitutional: Present no acute distress, obese, chronically ill appearing and cooperative Head: Present atraumatic and normocephalic Neck: Present normal inspection Respiratory: Present normal respiratory effort; Absent rhonchi, wheezes or crackles Cardiac: Present Reg Rate and Rhythm, Regular Rate and Regular Rhythm GI: Present soft, tenderness (Interval improvement after surgery.) and hypoactive bowel sounds; Absent distention, guarding or rebound Comments:: GRICELDA in right upper quadrant with scant bilious discharge. Rectal (male): Present deferred (male): Present deferred Extremities: Present full ROM and tenderness (Bilateral knees); Absent normal inspection or edema Skin: Present intact and dry; Absent erythema Comment:: Sadi on surgical sites on abdomen Neuro: Present Grossly Intact, alert, awake and moves all extremities Comment:: Oriented to self and place, at baseline per family Assessment and Plan *Assessment and plan (1) Post-operative complication: Status: Acute Qualifiers: Surgical complication system/body Area: [id number] Encounter type: initial encounter Category: Medical Code(s): T81.9XXA - Unspecified complication of procedure, initial encounter (2) Intra-abdominal abscess: Status: Acute Category: Medical Code(s): K65.1 - Peritoneal abscess (3) Dementia: Status: Acute Category: Medical Code(s): F03.90 - Unspecified dementia, unspecified severity, without behavioral disturbance, psychotic disturbance, mood disturbance, and anxiety (4) Atrial fibrillation: Status: Acute Qualifiers: Atrial fibrillation type: unspecified chronic Qualified Code(s): I48.20 - Chronic atrial fibrillation, unspecified Category: Medical Code(s): I48.91 - Unspecified atrial fibrillation (5) T2DM (type 2 diabetes mellitus): Status: Acute Qualifiers: Diabetes mellitus chcf insulin use: without chcf use Diabetes mellitus complication status: without complication Qualified Code(s): E11.9 - Type 2 diabetes mellitus without complications Category: Medical Code(s): E11.9 - Type 2 diabetes mellitus without complications (6) Anxiety: Status: Acute Category: Medical Code(s): F41.9 - Anxiety disorder, unspecified Plan Mr. Baxter is a 85-year-old male who presented to the emergency department on 06/09/2025 with worsening abdominal pain and chest pain. He is status post laparoscopic cholecystectomy 10 days. Currently has a GRICELDA in place. He has a primary medical history of insulin-dependent diabetes mellitus, atrial fibrillation on chronic anticoagulation, CHF, arthritis, COPD, and dementia. Workup in the emergency department was significant for mild leukocytosis, hyponatremia of 130, elevated glucose 253. Blood cultures were obtained and patient was given 1 L IV fluids and morphine for pain control. CT scan showed abscess in the gallbladder fossa, Zosyn IV initiated. Hospital medicine was consulted for admission and agreed to admit the patient. Plan of care as follows: #Intra-abdominal abscess #Status post laparoscopic cholecystectomy ? Patient was admitted to the floor and general surgery consulted. Dr. Wen recommendation of continued antibiotics and monitoring. No surgical or procedural intervention in the immediate timeframe. At this time it is unclear if it is an abscess or biloma, GRICELDA drain somewhat inferior to this area but putting out scant serous material. Could also be a hematoma given the patient is on long-term anticoagulation. Possible CT scan versus HIDA scan this afternoon. LFTs unremarkable. ? Repeat abdomen/pelvis CT yesterday shows unchanged 6 x 6 cm area. At this time we will continue to wait on intervention, advance diet as tolerated today. If patient looks unwell clinically,may need possible interventional radiology versus laparoscopy. ? Continuing Zosyn 4.5 g every 6 hours IV. Patient has Dilaudid 0.5 mg every 3 hours as needed for pain control, Percocet 7.5/325 mg every 6 hours as needed for moderate pain. Continuing to monitor for toxicity. ?Leukocytosis resolved, WBC 7.6. Continuing to trend. Kidney function stable BUN 16, creatinine 1.10. ?PT/OT recommending placement at discharge, care management working on placement options. Patient is agreeable. ?CBC, CMP, mag ordered for the a.m. #Atrial fibrillation #Chronic anticoagulation ? Patient placed on continuous cardiac telemetry, currently in A-fib but rate controlled. Patient takes Xarelto 20 mg daily, holding currently due to postop complication. Will follow general surgery's input. #Diabetes mellitus, type II ? Holding metformin 1000 mg twice daily and Tresiba 28 units subcu daily. ? ACHS fingersticks, SSI low intensity scale, A1c pending. #GERD: Continue esomeprazole 40 mg daily #Mood disorder: Continue Xanax twice daily as needed, quetiapine 25 mg 3 times daily. #BPH: Continue tamsulosin 0.4 mg at bedtime and finasteride 5 mg daily. #Hypotension: Patient takes midodrine 10 mg 3 times daily, blood pressure currently stable, holding medication. #Iron deficiency anemia: Continue iron 325 mg daily. H&H stable at 12.3 and 40.6. #Dementia: Continue memantine 5 mg twice daily. Full code Ambulate as tolerated VTE?SCDs Full liquid diet
--- NOTE | 2025-06-12 09:51 | HMH.OTEV ---
OT Evaluation Rehab OT IP Evaluation Start: 06/12/25 07:48 Freq: ONCE Status: Active Protocol: Document 06/12/25 09:37 TERESA (Rec: 06/12/25 09:50 TERESA [id number]) Rehab OT IP Assessment Subjective History Per H&P: Patient is an 85-year-old male with a past medical tree significant for dementia, CHF, atrial fibrillation on chronic anticoagulation, osteoarthritis , type 2 diabetes mellitus. Patient presents to [facility] due to abdominal pain, nausea vomiting. Recently underwent cholecystectomy with Dr. Wen. GRICELDA drain in place from hospital discharge due to continued output. Family at bedside reports continued large GRICELDA output. States patient had some abdominal pain prior to discharge but has significantly become worse over the last day. Reports right upper quadrant pain with nausea and vomiting. Denies fever, diarrhea, chest pain, shortness of breath . ED evaluation included laboratory workup and imaging. CTA chest imaging reviewed and noted, 8.4 cm loculated fluid and gas collection in the gallbladder fossa. Recent cholecystectomy, this is compatible with postoperative biloma or absces. Blood culture, urine culture/pending. WBC 11.1, sodium 130, glucose 202. Hemodynamically stable, 2 L nasal cannula saturations. Alert and oriented to person and place. Received IV fluids and Zosyn Subjective I am not able to get out of bed. Pt supine in bed when therapy entered room. Pt agreed to OT eval this AM. Pt orient x3, however, very groggy. Pt reports he was living with his niece and nephew in a SS home with 1 set of steps to enter. Pt reports a recent decline in functional mobility and decline in completion of ADLs and IADLs. Pt normally able to complete FM using a RW. Previous admittance to hospital: Per nursing staff, Patient lives with in 1 story home with 1 DARREN with porch. Patient uses a RW if provided verbal reminders. Patient requires assistance for ADLs and fx'l mobility for safety. Pt agreed to sit on EOB. Pt went from supine to EOB with Mod A x1. Pt then completed STS with Min A x1. Pt unable to tolerate static standing balance for long, only aprox 30 seconds. Pt then went to EOB and supine position with Min A. Pt left supine in bed with call light and all other needs within reach. Objective Patient Orientation Person,Patient Baseline,Situation Right Upper Mod Limitation 50% Extremity Gross ROM Left Upper Extremity Mod Limitation 50% Gross ROM Shoulder ROM Muscle Weakness Limitations Elbow ROM Muscle Weakness Limitations Wrist Limitations of Muscle Weakness Range of Motion Bed Mobility bed mobility-scooting,bed mobility - supine/sit Assist Level Moderate x 1 (50% assist) Transfer Training Sit/Stand Transfer Assist Level Minimal x 1 (25% assist) Chair Transfer None Assistive Devices Decrease in Yes Endurance Rehab OT IP prob,goals,plan Problems Date of Evaluation: 06/12/25 OT IP Problems Bed Mobility,Transfers,Balance,Self care,Safety Rehab Potential Rehab Potential Good Equipment Needs Assistive Devices Rolling / Wheeled Walker Plan OT intervention Plan Bed Mobility,Transfers,Balance,Self care,Safety, Therapeutic Exercise OT Plan Frequency Daily Duration LOS Discharge Goals Bed Mobility Ability Assistance x1 Sit to Stand Chair Minimal x 1 (25% assist) Transfer Ability Chair Transfer Minimal x 1 (25% assist) Ability Chair Transfer Sit to/from Ambulatory Technique Chair Transfer Rolling Walker Assistive Devices Feeding Ability Assist with Tray Set Up Commode/Toilet Grab Bars Transfer Assistive Devices Decrease in No Endurance Discharge Plan OT Discharge Plan At time this time, pt would benefit from skilled acute OT services while admitted to [facility]. Once DC from [facility], pt could benefit from IP rehab to further address functional decline, however if pt improves while admitted, they can go home with / care and . Eval Complexity Eval Charge Codes 80982 - Moderate Complexity PHYSICIAN CERTIFICATION: I certify the specified therapy services for Boubacar Baxter are required, authorized, and reviewed every 30 days.
--- NOTE | 2025-06-12 10:17 | SW/DCPLANNER ---
Addendum entered by Kristen Harris 06/13/25 12:04: Patient's prefers patient return home w/ home health services since he is not interested in placement. does feel comfortable w/ patient returning home. I will relay information to MD. CM will resume home health services at discharge. Addendum entered by Kristen Harris 06/13/25 10:55: Patient was alert and oriented during my visit this AM. Patient expressed that he is not interested in placement at this time and prefers to return home. I attempted to contact w/ no answer at this time. CM will continue to follow up. [facility], [facility] and [facility] are all willing to accept pending precert. Addendum entered by Kristen Harris 06/12/25 15:05: Patient information has been faxed to [facility], [facility], [facility] and [facility]. Addendum entered by Kristen Harris 06/12/25 14:30: [facility] is unable to accept patient due to having an unpaid bill. is agreeable for me to reach out to [facility] (not in network), [facility] (not in network), [facility] (not in network), [facility], [facility], [facility], [facility] and [facility]. Original Note: I spoke w/ patient's regarding plans once medically stable for discharge. PT/OT evaluated patient and recommended SNF level of care at time of discharge. is agreeable to placement for patient if still necessary at time of discharge. is agreeable for information to be faxed to [facility]. Per Chris w/ [facility] he does have a male bed available. I will follow up w/ Chris once information is reviewed. Discharge date is unknown at this time. CM will continue to follow up. Patient is currently established w/ [facility]. CM will update once patient is medically stable for discharge.
[2025-06-12] MEDS: HYDROMORPHONE 2MG/ML SYRINGE 0.5 MG IV ×2 (10:25→21:04)
[2025-06-12 11:21] LABS: POC Glucose,Bedside 185 gm/dL (70-110)
[2025-06-12] MEDS: SIMETHICONE 80MG CHEWABLE TABLET 160 MG PO ×2 (12:48→21:04)
[2025-06-12 16:46] LABS: POC Glucose,Bedside 339 gm/dL (70-110)
--- NOTE | 2025-06-12 18:26 | PC.NURSE ---
pt had pacemaker placed today. at 1735 he began to have a hematoma come up where the incision was. shana placed manual pressure on the site for 25 minutes stopping at 1800. dilaudid 2 mg IV was given per dr hernandez and he ordered to stop the heparin. he also ordered 30 mg protamine to reverse the effects of the heparin. pt was placed at [address] hernandez. a sandbag was also placed at 1800. the site is soft to touch and the pts blood pressure is stable. the gauze is soaked with blood but has quit bleeding since. pt is resting and has no needs at this time.
[2025-06-12] MEDS: QUETIAPINE 25MG TABLET 12.5 MG PO (21:04)
[2025-06-12] MEDS: PANTOPRAZOLE 40MG TABLET 40 MG PO (21:04)
[2025-06-12] MEDS: TAMSULOSIN 0.4MG CAPSULE 0.4 MG PO (21:04)
[2025-06-12 21:28] LABS: POC Glucose,Bedside 144 gm/dL (70-110)
[2025-06-13] VITALS: BP 117/62; PULSE 65; PULSE 83; RESP 18; TEMP 36.6; O2SAT 99
[2025-06-13 04:00] VITALS: BP 109/62; PULSE 85; PULSE 90; RESP 18; TEMP 36.9; O2SAT 97; BMI 36.1
[2025-06-13] MEDS: PIPERACILLIN/TAZO 4.5 GM in 0.9 % SODIUM CHLORIDE 100 ML IV ×2 (05:04→11:17)
[2025-06-13 05:19] LABS: POC Glucose,Bedside 167 gm/dL (70-110)
[2025-06-13 06:23] LABS: Hematocrit 37.7 % (42.0-52.0); Hemoglobin 11.7 g/dL (14.1-18.0); Immature Granulocytes % 0.8 %; Mean Corpuscular HGB Conc 31.0 g/dL (31.8-35.4); Mean Corpuscular Hemoglobin 29.3 pg (27.0-31.2); Mean Corpuscular Volume 94.3 fl (80-94); Nucleated Red Blood Cells % 0 %; Platelet Count 277 K/mm3 (142-424); Red Blood Count 4.00 M/mm3 (4.60-6.20); Red Cell Distribution Width-SD 46.4 fL; White Blood Count 9.6 K/mm3 (4.8-10.8)
[2025-06-13 06:29] LABS: Alanine Aminotransferase 19 U/L (12-78); Albumin Level 2.6 g/dl (3.5-5.0); Albumin/Globulin Ratio 0.7 (1.1-1.8); Alkaline Phosphatase 72 U/L (38-126); Anion Gap 12.7 mEq/L (5-15); Aspartate Amino Transferase 23 U/L (17-59); Bilirubin,Total 0.8 mg/dl (0.2-1.3); Blood Urea Nitrogen 16 mg/dl (9-20); Calcium 8.6 mg/dl (8.4-10.2); Carbon Dioxide 30 mmol/L (22.0-30.0); Chloride 96 mmol/L (98-107); Creatinine Clearance Estimated 64 mL/min (50-200); Creatinine,Serum 1.20 mg/dl (0.66-1.25); Estimated Glomerular Filt Rate 57 ml/min (>60); GFR (African American) 69 ML/MIN (>60); Globulin 3.6 g/dL (1.3-3.2); Glucose 179 mg/dl (74-100); Potassium 3.7 mmoL/L (3.5-5.1); Sodium 135 mmol/L (136-145); Total Protein,Serum 6.2 g/dl (6.3-8.2)
[2025-06-13 07:50] VITALS: BP 118/58; PULSE 96; RESP 16; TEMP 36.7; O2SAT 93
[2025-06-13 08:00] VITALS: PULSE 100
--- NOTE | 2025-06-13 08:07 | P.PN_ITS ---
Subjective Patient reports: no new complaints and still having pain Narrative: The patient complains of some abdominal discomfort but states that his legs are still the problem . Per nursing, minimal GRICELDA drainage noted over the last 24 hours. Exam Data for Last 24 hours Vital signs and Labs for Last 24 Hours: Temp Pulse Resp BP Pulse Ox O2 Del Method O2 Flow Rate 98.1 F 96 H 16 118/58 L 93 L Nasal Cannula 2 06/13/25 07:50 06/13/25 07:50 06/13/25 07:50 06/13/25 07:50 06/13/25 07:50 06/13/25 07:50 06/13/25 06:33 Laboratory Results - last 24 hr 06/12/25 06:00: Total Bilirubin 0.8, Direct Bilirubin 0.3, Conjugated Bilirubin 0.0, Indirect Bilirubin 0.5, Unconjugated Bilirubin 0.5, AST 23 D, ALT 21, Alkaline Phosphatase 76, Total Protein 5.4 L, Albumin 2.5 L 06/12/25 11:07: POC Glucose 185 H 06/12/25 16:33: POC Glucose 339 H* 06/12/25 21:01: POC Glucose 144 H 06/13/25 05:12: POC Glucose 167 H 06/13/25 05:13: WBC 9.6 D, RBC 4.00 L, Hgb 11.7 L, Hct 37.7 L, MCV 94.3 H, MCH 29.3, MCHC 31.0 L, RDW 13.4, Plt Count 277, MPV 9.5, Neut % (Auto) 69.1, Lymph % (Auto) 20.3, [place] % (Auto) 6.4, Eos % (Auto) 2.8, Baso % (Auto) 0.6, Neut # (Auto) 6.6, Lymph # (Auto) 1.9, [place] # (Auto) 0.6, Eos # (Auto) 0.3, Baso # (Auto) 0.1, Sodium 135 L, Potassium 3.7, Chloride 96 L, Carbon Dioxide 30, Anion Gap 12.7, BUN 16, Creatinine 1.20, Estimated Creat Clear 64, Estimated GFR 57 L, Est GFR ( Amer) 69, Glucose 179 H, Calcium 8.6, Total Bilirubin 0.8, AST 23, ALT 19, Alkaline Phosphatase 72, Total Protein 6.2 L, Albumin 2.6 L, Globulin 3.6 H, Albumin/Globulin Ratio 0.7 L I & O for Last 24 hours: Intake & Output 06/10/25 06/11/25 06/12/25 06/13/25 11:59 11:59 11:59 11:59 Intake Total 1200 / 1200 1720.000 / 4525.337 7952 / 1150 1430 / 1430 Output Total 710 / 710 1025 / 1025 1350 / 1350 Balance 1180 / 1180 1010.000 / 1010.000 125 / 125 80 / 80 Weight 230 lb 14.383 oz 221 lb 11.2 oz 220 lb 14.4 oz 225 lb 1.6 oz Constitutional Constitutional: no acute distress *Routine Respiratory Exam Respiratory: Absent respiratory distress *Routine Abdominal Exam Comments: GRICELDA with 50 mL. Quality remains relatively bilious. Progress Note: A&P Assessment and plan (1) Post-operative complication: Status: Acute (2) Intra-abdominal abscess: Status: Acute Assessment and Plan Assessment and Plan for All Diagnoses:: White blood cell count remains normal. No left shift noted. Minimal Arthur-Ornelas drainage noted per nursing over the last 24 hours; however, 50 mL noted in bulb this a.m. Quality remains relatively bilious. [[[As noted per Dr. Wen's prior notes...case discussed with radiologist...the fluid collection in the gallbladder fossa is moderately small measuring about 7 x 2 cm. Drain placement will require drain placed through the liver.]]] -Continue to hold off (for now) on additional drain placement. -Continue current Arthur-Ornelas drainage and consider reimaging in near future. NOTE: recent HIDA scan revealed no leak at that time. Fluid bilirubin results (send out) now resulted (fluid bilirubin 1.0)
[2025-06-13] MEDS: MEMANTINE 10MG TABLET 5 MG PO (08:08)
[2025-06-13] MEDS: DOCUSATE SODIUM 250MG CAPSULE 250 MG PO (08:08)
[2025-06-13] MEDS: SIMETHICONE 80MG CHEWABLE TABLET 160 MG PO ×2 (08:08→12:03)
[2025-06-13] MEDS: FERROUS SULFATE 325MG TABLET 325 MG PO (08:08)
[2025-06-13] MEDS: FINASTERIDE 5MG TABLET 5 MG PO (08:08)
[2025-06-13] MEDS: GABAPENTIN 400MG CAPSULE 400 MG PO (08:09)
--- NOTE | 2025-06-13 08:17 | EXP.PHA.PN ---
Subjective *Date: 06/13/25 *Time: 08:17 Medical Exam Vital signs and Labs for Last 24 Hours: Vital Signs Temp Pulse Pulse Resp BP Pulse Ox O2 Del Method 06/13/25 07:50 98.1 F 96 H 16 118/58 L 93 L Nasal Cannula 06/13/25 06:33 Nasal Cannula 06/13/25 05:00 Nasal Cannula 06/13/25 04:00 85 06/13/25 04:00 98.5 F 90 18 109/62 L 97 Nasal Cannula 06/13/25 01:00 Nasal Cannula 06/13/25 00:00 65 06/13/25 00:00 97.9 F 83 18 117/62 99 Nasal Cannula 06/12/25 23:00 Nasal Cannula 06/12/25 21:00 Nasal Cannula 06/12/25 20:00 75 06/12/25 20:00 98.7 F 89 18 123/59 L 98 Nasal Cannula 06/12/25 20:00 Nasal Cannula 06/12/25 18:44 Nasal Cannula 06/12/25 17:10 Nasal Cannula 06/12/25 16:00 100 H 06/12/25 16:00 97.8 F 96 H 21 135/70 98 Nasal Cannula 06/12/25 15:00 Nasal Cannula 06/12/25 13:10 Nasal Cannula 06/12/25 12:00 100 H 06/12/25 12:00 98.1 F 106 H 18 117/60 97 Nasal Cannula 06/12/25 11:20 Nasal Cannula 06/12/25 09:20 Nasal Cannula 06/12/25 08:30 97 Nasal Cannula O2 Flow Rate 06/13/25 07:50 06/13/25 06:33 2 06/13/25 05:00 2 06/13/25 04:00 06/13/25 04:00 2 06/13/25 01:00 2 06/13/25 00:00 06/13/25 00:00 2 06/12/25 23:00 2 06/12/25 21:00 2 06/12/25 20:00 06/12/25 20:00 3 06/12/25 20:00 2 06/12/25 18:44 2 06/12/25 17:10 2 06/12/25 16:00 06/12/25 16:00 2 06/12/25 15:00 2 06/12/25 13:10 2 06/12/25 12:00 06/12/25 12:00 2 06/12/25 11:20 2 06/12/25 09:20 2 06/12/25 08:30 2 Intake and Output 06/12/25 06/13/25 06/13/25 23:59 07:59 15:59 Intake Total 730 / 1590 200 / 200 Output Total 850 / 975 500 / 500 Balance -120 / 615 -300 / -300 Intake: Intake, Oral Amount 630 / 1190 Intake, Total IV Amount 100 / 400 200 / 200 Piperacillin/Tazo 4.5 gm In 0.9 100 / 400 200 / 200 % Sodium Chloride 100 ml @ 200 mls/hr IV Q6H [facility] Rx#:[id number] Output: Output, Urine Amount 850 / 850 500 / 500 Other: Number of Voids 1 Weight 102.104 kg Patient Weight 06/13/25 23:59 Weight 102.104 kg Laboratory Results - last 24 hr 06/12/25 06:00: Total Bilirubin 0.8, Direct Bilirubin 0.3, Conjugated Bilirubin 0.0, Indirect Bilirubin 0.5, Unconjugated Bilirubin 0.5, AST 23 D, ALT 21, Alkaline Phosphatase 76, Total Protein 5.4 L, Albumin 2.5 L 06/12/25 11:07: POC Glucose 185 H 06/12/25 16:33: POC Glucose 339 H* 06/12/25 21:01: POC Glucose 144 H 06/13/25 05:12: POC Glucose 167 H 06/13/25 05:13: WBC 9.6 D, RBC 4.00 L, Hgb 11.7 L, Hct 37.7 L, MCV 94.3 H, MCH 29.3, MCHC 31.0 L, RDW 13.4, Plt Count 277, MPV 9.5, Neut % (Auto) 69.1, Lymph % (Auto) 20.3, [place] % (Auto) 6.4, Eos % (Auto) 2.8, Baso % (Auto) 0.6, Neut # (Auto) 6.6, Lymph # (Auto) 1.9, [place] # (Auto) 0.6, Eos # (Auto) 0.3, Baso # (Auto) 0.1, Sodium 135 L, Potassium 3.7, Chloride 96 L, Carbon Dioxide 30, Anion Gap 12.7, BUN 16, Creatinine 1.20, Estimated Creat Clear 64, Estimated GFR 57 L, Est GFR ( Amer) 69, Glucose 179 H, Calcium 8.6, Total Bilirubin 0.8, AST 23, ALT 19, Alkaline Phosphatase 72, Total Protein 6.2 L, Albumin 2.6 L, Globulin 3.6 H, Albumin/Globulin Ratio 0.7 L I & O for Labs for Last 24 Hours: Intake & Output 06/10/25 06/11/25 06/12/25 06/13/25 23:59 23:59 23:59 23:59 Intake Total 1520.000 / 3796.632 3626 / 1090 1590 / 1590 200 / 200 Output Total 500 / 530 1130 / 1130 975 / 975 500 / 500 Balance 1020.000 / 990.000 -40 / -40 615 / 615 -300 / -300 Weight 104.734 kg 100.561 kg 100.199 kg 102.104 kg The patient's infection will respond to the chosen ABx?: Yes (BLOOD CX NO GROWTH, SPUTUM PENDING, AFEBRILE OVER 24 HR, WBC 9.6) Is the patient receiving the right drug, dose, and route?: Yes Could a more targeted ABx be ordered?: No How long ABx needed (days)?: 5 (POST SOURCE CONTROL (TREATING INTRAABDOMINAL ABSCESS))
[2025-06-13] MEDS: OXYCODONE 7.5MG W/APAP 325MG TABLET 1 EACH PO (09:32)
[2025-06-13] MEDS: POLYETHYLENE GLYCOL 3350 17 GM PACKET PO (11:17)
[2025-06-13] MEDS: humaLOG 100 UNITS/ML 10ML VIAL (SSI) SUBCUT ×2 (11:19→17:19)
[2025-06-13 11:45] VITALS: BP 96/52; PULSE 101; RESP 16; TEMP 36.8; O2SAT 94
[2025-06-13 11:48] LABS: POC Glucose,Bedside 227 gm/dL (70-110)
[2025-06-13 12:00] VITALS: PULSE 100
--- NOTE | 2025-06-13 12:58 | P.DS_ITS ---
<Statement entered by Joao Blood MD - 06/17/25 15:37> Agree with plan of care as outlined by the MEAT AND SEAFOOD MANAGER. General Admission date:: 06/09/25 Discharge date: 06/13/25 HPI HPI HPI: Patient is an 85-year-old male who is 8 days postoperative from laparoscopic cholecystectomy on 06/02/[address] Tammie Dempsey at which time he was found to have acute cholecystitis verging on gangrenous cholecystitis with an intense rind of chronic inflammation surrounding the gallbladder. There was noted to be extensive oozing from the gallbladder fossa which improved once the gallbladder was removed. Liver bed bleeding was controlled with cautery and application of Mady. He had a GRICELDA drain placed. Throughout his hospital stay this was dark brown. On 06/05/2025 it was sent for bilirubin but this is a send out lab and is still pending at the time of this dictation. He remained in inpatient and convalesced slowly. He did undergo a HIDA scan prior to discharge to evaluate for any biliary leak from the bile ducts or gallbladder fossa of which none was noted. There was evidence of bile reflux into the stomach. Consideration was being given for possible drain removal however this was left in place due to small to moderate output. Prior to discharge his white blood cell count was 5800. Liver function test were normal. He was apparently brought back to the emergency department in the evening of 06/09/2025 via EMS complaining of worsening abdominal pain in the right upper quadrant. Evaluation revealed mild leukocytosis of 11,000. BNP 587. He underwent a CT scan which revealed findings of 8.4 cm loculated fluid and gas collection in the gallbladder fossa. This was felt to be possible postoperative biloma or abscess. Drain has continued to function. He was admitted for inpatient management and surgical consultation. Patient's biggest complaint is pain in his knees and some pain in his heels. Hospital Course Hospital Course Hospital Course: Mr. Baxter is a 85-year-old male who presented to the emergency department on 06/09/2025 with worsening abdominal pain and chest pain. He is status post laparoscopic cholecystectomy 11 days. Currently has a GRICELDA in place. He has a primary medical history of insulin-dependent diabetes mellitus, atrial fibril lation on chronic anticoagulation, CHF, arthritis, COPD, and dementia. Workup in the emergency department was significant for mild leukocytosis, hyponatremia of 130, elevated glucose 253. Blood cultures were obtained and patient was given 1 L IV fluids and morphine for pain control. CT scan showed abscess in the gallbladder fossa, Zosyn IV initiated. Hospital medicine was consulted for admission and agreed to admit the patient. Plan of care as follows: #Intra-abdominal abscess #Status post laparoscopic cholecystectomy ? Patient was admitted to the floor and general surgery consulted. General surgery consulted and saw patient daily during admission. Initial HIDA scan showed small fluid collection in gallbladder fossa measuring about 7 x 2 cm. Drain placement would require to go through the liver therefore deferring at this time. Patient continued on antibiotics during admission, Zosyn 4.5 mg every 6 hours. Small amount of bilious drainage in GRICELDA drain noted. Patient feels well and WBC continues to stay within normal limits. Plans to discharge home today with home health services. Patient will follow-up with Dr. Wen tomorrow for further evaluation and possible drain removal. Patient discharged home on Levaquin 750 mg daily and Augmentin 875-125 mg twice daily to complete a total course of antibiotics for 14 days. Patient will go home with GRICELDA drain in place. Instruction given to patient and family on drain emptying and use. Patient has appointment to follow-up with Dr. Wen on at 1:30 PM ?Patient tolerating regular diet without issues. ?Patient worked with PT/OT during admission and did well. PT/OT recommended SNF or home with 08/03 assistance. Patient has help at home, spouse and other family for assistance if needed. #Atrial fibrillation #Chronic anticoagulation ? Patient should continue Xarelto 20 mg daily at discharge. #Diabetes mellitus, type II ? Continue metformin 1000 mg twice daily and Tresiba 28 units subcu daily. A1c 6.2%. #GERD: Continue esomeprazole 40 mg daily #Mood disorder: Continue Xanax twice daily as needed, quetiapine 25 mg 3 times daily. #BPH: Continue tamsulosin 0.4 mg at bedtime and finasteride 5 mg daily. #Hypotension: Patient takes midodrine 10 mg 3 times daily, blood pressure currently stable, holding medication. #Iron deficiency anemia: Continue iron 325 mg daily. H&H stable at 12.3 and 40.6. #Dementia: Continue memantine 5 mg twice daily. Total time spent on discharge 36 minutes in counseling, documentation, chart review, and direct care with patient. Exam Data for Last 24 hours Vital signs and Labs for Last 24 Hours: Temp Pulse Resp BP Pulse Ox O2 Del Method O2 Flow Rate 98.2 F 101 H 16 96/52 L 94 L Nasal Cannula 2 06/13/25 11:45 06/13/25 11:45 06/13/25 11:45 06/13/25 11:45 06/13/25 11:45 06/13/25 10:43 06/13/25 10:43 Laboratory Results - last 24 hr 06/12/25 16:33: POC Glucose 339 H* 06/12/25 21:01: POC Glucose 144 H 06/13/25 05:12: POC Glucose 167 H 06/13/25 05:13: WBC 9.6 D, RBC 4.00 L, Hgb 11.7 L, Hct 37.7 L, MCV 94.3 H, MCH 29.3, MCHC 31.0 L, RDW 13.4, Plt Count 277, MPV 9.5, Neut % (Auto) 69.1, Lymph % (Auto) 20.3, [place] % (Auto) 6.4, Eos % (Auto) 2.8, Baso % (Auto) 0.6, Neut # (Auto) 6.6, Lymph # (Auto) 1.9, [place] # (Auto) 0.6, Eos # (Auto) 0.3, Baso # (Auto) 0.1, Sodium 135 L, Potassium 3.7, Chloride 96 L, Carbon Dioxide 30, Anion Gap 12.7, BUN 16, Creatinine 1.20, Estimated Creat Clear 64, Estimated GFR 57 L, Est GFR ( Amer) 69, Glucose 179 H, Calcium 8.6, Total Bilirubin 0.8, AST 23, ALT 19, Alkaline Phosphatase 72, Total Protein 6.2 L, Albumin 2.6 L, Globulin 3.6 H, Albumin/Globulin Ratio 0.7 L 06/13/25 11:18: POC Glucose 227 H I & O for Last 24 hours: Intake & Output 06/10/25 06/11/25 06/12/25 06/13/25 23:59 23:59 23:59 23:59 Intake Total 1520.000 / 2509.548 5257 / 1090 1590 / 1590 540 / 540 Output Total 500 / 530 1130 / 1130 975 / 975 750 / 750 Balance 1020.000 / 990.000 -40 / -40 615 / 615 -210 / -210 Weight 104.734 kg 100.561 kg 100.199 kg 102.104 kg Microbiology Reports for the Last 24 Hours: Microbiology 06/10/25 11:35 Sputum - Expectorated Sputum Gram Stain - Final 06/10/25 11:35 Sputum - Expectorated Sputum Sputum Culture - Preliminary Gram Negative Rods Results Data Completed and Pending Labs on day of discharge: Labs from last 24 hours 06/13/25 06/13/25 06/13/25 11:18 05:13 05:12 WBC 9.6 D RBC 4.00 L Hgb 11.7 L Hct 37.7 L MCV 94.3 H MCH 29.3 MCHC 31.0 L RDW 13.4 Plt Count 277 MPV 9.5 Neut % (Auto) 69.1 Lymph % (Auto) 20.3 [place] % (Auto) 6.4 Eos % (Auto) 2.8 Baso % (Auto) 0.6 Neut # (Auto) 6.6 Lymph # (Auto) 1.9 [place] # (Auto) 0.6 Eos # (Auto) 0.3 Baso # (Auto) 0.1 Sodium 135 L Potassium 3.7 Chloride 96 L Carbon Dioxide 30 Anion Gap 12.7 BUN 16 Creatinine 1.20 Estimated Creat Clear 64 Estimated GFR 57 L Est GFR ( Amer) 69 Glucose 179 H POC Glucose 227 H 167 H Calcium 8.6 Total Bilirubin 0.8 AST 23 ALT 19 Alkaline Phosphatase 72 Total Protein 6.2 L Albumin 2.6 L Globulin 3.6 H Albumin/Globulin Ratio 0.7 L 06/12/25 06/12/25 21:01 16:33 WBC RBC Hgb Hct MCV MCH MCHC RDW Plt Count MPV Neut % (Auto) Lymph % (Auto) [place] % (Auto) Eos % (Auto) Baso % (Auto) Neut # (Auto) Lymph # (Auto) [place] # (Auto) Eos # (Auto) Baso # (Auto) Sodium Potassium Chloride Carbon Dioxide Anion Gap BUN Creatinine Estimated Creat Clear Estimated GFR Est GFR ( Amer) Glucose POC Glucose 144 H 339 H* Calcium Total Bilirubin AST ALT Alkaline Phosphatase Total Protein Albumin Globulin Albumin/Globulin Ratio Preliminary micro results at discharge 06/10/25 11:35 Sputum Culture - Preliminary Sputum - Expectorated Sputum Gram Negative Rods 06/09/25 21:45 Blood Culture - Preliminary Blood NO GROWTH AFTER 48 HOURS 06/09/25 21:30 Blood Culture - Preliminary Blood NO GROWTH AFTER 48 HOURS DS: Diagnosis Discharge Diagnosis (1) Post-operative complication: Status: Acute Code(s): T81.9XXA - Unspecified complication of procedure, initial encounter Qualifiers: Encounter type: initial encounter Surgical complication system/body Area: [id number] (2) Intra-abdominal abscess: Status: Acute Code(s): K65.1 - Peritoneal abscess Meds Home Medications and Allergies Home Medications ?Medication ?Instructions ?Recorded ?Confirmed ?Type finasteride 5 mg tablet 5 mg PO DAILY 05/12/2106/10 History metformin 1,000 mg tablet 1,000 mg PO BIDWMEAL 1 06/10/25 History tamsulosin 0.4 mg capsule 0.4 mg PO HS 03/26/22 History rivaroxaban 20 mg tablet 20 mg PO QPMWITHMEAL 2 06/10/25 History esomeprazole magnesium 40 mg 40 mg PO DAILY 12/05/22 1 History capsule,delayed release insulin degludec 100 unit/mL (3 28 unit SQ DAILY 12/0506/10/25 History mL) subcutaneous pen (Tresiba FlexTouch U-100 insulin) midodrine 5 mg tablet 10 mg PO TID 12/05/22 History ferrous sulfate 325 mg (65 mg 325 mg PO DAILY 11/27/23 06/10/25 History iron) tablet (FeroSul) alprazolam 0.5 mg tablet 0.5 mg PO BIDP PRN Anxiety 1 0 days 11/29/23 06/10/25 Rx #20 tabs gabapentin 400 mg capsule 400 mg PO BID 06/02/2506/10 History memantine 5 mg tablet 5 mg PO BID 06/02/25 5 History oxycodone-acetaminophen 7.5 mg-325 1 tab PO Q6HP PRN S evere Pain 06/02/25 06/10/25 History mg tablet (Scale Score 7-10) potassium chloride 10 mEq 10 meq PO DAILY 06/02/25 History capsule,extended release triamcinolone acetonide 0.1 % 1 applic topical BID 06/10/25 History topical cream quetiapine 50 mg tablet 25 mg PO HS 06/03/25 5 History amoxicillin 875 mg-potassium 1 tab PO BID #20 tabs Rx clavulanate 125 mg tablet docusate sodium 250 mg capsule 250 mg PO DAILY 30 days #30 caps 06/13/25 Rx levofloxacin 750 mg tablet 750 mg PO DAILY #10 tabs Rx New Prescriptions to Start Prescriptions: amoxicillin-pot clavulanate Haven Raman docusate sodium Haven Raman levofloxacin Haven Raman Allergies Allergy/AdvReac Type Severity Reaction Status Date / Time No Known Allergies Allergy Verified 06/09/25 21:44 Discharge Plan Disposition Patient Disposition: Home Health Service Condition: Good Discharge Order Discharge Orders: Discharge Order (Routine); Ordered 06/13/25 Ordered By: Haven Raman Follow up Plan Follow up with: Myke Wen MD [Staff Physician, General Surgery] - 06/14/25 1:30 pm Courtney Almanza MD [Primary Care Provider, Medical] - Enter time for follow up Referral Note: call tomorrow for follow up pcp was having problems with computer Prescriptions/Medication Reconciliation: New docusate sodium 250 mg Capsule 250 mg PO DAILY 30 Days Qty: 30 0RF amoxicillin-pot clavulanate 875-125 mg tablet 1 tab PO BID Qty: 20 0RF levofloxacin 750 mg tablet 750 mg PO DAILY Qty: 10 0RF Continued tamsulosin 0.4 MG capsule 0.4 mg PO HS rivaroxaban 20 mg tablet 20 mg PO QPMWITHMEAL midodrine 5 mg tablet 10 mg PO TID esomeprazole magnesium 40 mg capsule,delayed release(DR/EC) 40 mg PO DAILY Patient Comments: TAKE 1 CAPSULE BY MOUTH ONCE DAILY insulin degludec [Tresiba FlexTouch U-100] 100 unit/mL (3 mL) insulin pen 28 unit SQ DAILY ferrous sulfate [FeroSul] 325 mg (65 mg iron) tablet 325 mg PO DAILY Patient Comments: TAKE 1 TABLET BY MOUTH ONCE DAILY alprazolam 0.5 mg tablet 0.5 mg PO BIDP PRN (Reason: Anxiety) 10 Days Qty: 20 0RF metformin 1,000 MG tablet 1,000 mg PO BIDWMEAL finasteride 5 MG tablet 5 mg PO DAILY potassium chloride 10 mEq capsule, extended release 10 meq PO DAILY Patient Comments: TAKE 1 CAPSULE BY MOUTH ONCE DAILY IN THE MORNING gabapentin 400 mg capsule 400 mg PO BID Patient Comments: TAKE 1 CAPSULE BY MOUTH TWICE DAILY triamcinolone acetonide 0.1 % cream 1 applic TOPICAL BID Patient Comments: APPLY A THIN LAYER TO THE AFFECTED AREA(S) BY TOPICAL ROUTE TWICE A DAY oxycodone-acetaminophen 7.5-325 mg tablet 1 tab PO Q6HP PRN (Reason: Severe Pain (Scale Score 7-10)) Patient Comments: TAKE 1 TABLET BY MOUTH EVERY 6 HOURS NEEDED FOR SEVERE PAIN memantine 5 mg tablet 5 mg PO BID Patient Comments: TAKE 1 TABLET BY MOUTH TWICE DAILY quetiapine 50 mg tablet 25 mg PO HS Patient Comments: take a quarter of tablet at bedtime (12.5mg) Problem Reconciliation Problems Reviewed?: Yes Patient Discharge Instructions ACTIVITY: Ambulate as tolerated and Up with assistance DIET: advance to your usual diet Patient Instructions: DI for Intra-Abdominal Abscess, Stop Light COPD, Stop Light Heart Failure, Stop Light Infection Print Language: Bahraini Providers Primary Care Provider: Courtney Almanza Admit Provider: Clemente Isabel Attending Provider: Clemente Isabel
--- NOTE | 2025-06-13 15:19 | PC.NURSE ---
notified pt's and she stated she was comfortable with pt being discharged home and did not mind managing armani drain.
[2025-06-13 17:26] LABS: POC Glucose,Bedside 230 gm/dL (70-110)
--- NOTE | 2025-06-13 18:15 | PC.NURSE ---
WHEN PT WAS BEING DISCHARGED STAFF WHEELED PT OUT WITH HOSPITAL OXYGEN TANK. PT HAS BEEN ON 2 L T/O HOSPITAL STAY. WHEN STAFF GOT PT TO THE CAR FAMILY STATED THEY DID NOT HAVE OXYGEN AT HOME. FAMILY STATED PT DID AT ONE POINT BUT HASN'T HAD IT FOR A YEAR. PT WAS BROUGHT BACK TO THE FLOOR AND PUT ON ROOM AIR FOR 15 MIN. ROOM AIR SATURATION MAINTAINED 93-97%. NOTIFIED HOSPITALIST, ASSISTANT PRESS OPERATOR AND DAYAN PENDLETON. PROVIDERS ARE OKAY WITH PT BEING DISCHARGED. PLAN OF CARE REVIEWED WITH FAMILY.
--- NOTE | 2025-06-15 08:40 | CARE MANAGER ---
Addendum entered by Winnie Nur RN 06/15/25 08:45: MD appt was actually with Dr. Wen. Appears that someone rescheduled for 06/19/2025. Original Note: Called and spoke with patient's granddaughter regarding recent discharge. She stated that patient has been up a lot during the night and feels a little short of air. Education provided on when to seek medical help and how to monitor O2 at home. Patient is scheduled for f/u with Dr. Maddox today and family planning to schedule f/u with PCP within the next week. No other concerns at time of call.
== END 2025-06-13 18:30 | disposition home health service (06) | DRG 862 ==
LOC: ER 23:56 → 2ND 06-10 00:44
PROVIDERS: Nurse Practitioner Acute Care; Surgery; Admitting Provider Internal Medicine Adolescent Medicine; Emergency Provider Student in an Organized Health Care Education/Training Program; PCP Internal Medicine; Visit Provider Internal Medicine Adolescent Medicine
DX: T81.43XA Infection following a procedure, organ and space surgical site, initial encounter (principal); A41.9 Sepsis, unspecified organism; K65.1 Peritoneal abscess; I48.20 Chronic atrial fibrillation, unspecified; E87.1 Hypo-osmolality and hyponatremia; D62 Acute posthemorrhagic anemia; I50.22 Chronic systolic (congestive) heart failure; J44.9 Chronic obstructive pulmonary disease, unspecified; F03.90 Unspecified dementia, unspecified severity, without behavioral disturbance, psychotic disturbance, mood disturbance, and anxiety; E11.65 Type 2 diabetes mellitus with hyperglycemia; F39 Unspecified mood [affective] disorder; F41.9 Anxiety disorder, unspecified; D50.9 Iron deficiency anemia, unspecified; N40.0 Benign prostatic hyperplasia without lower urinary tract symptoms; K21.9 Gastro-esophageal reflux disease without esophagitis; I95.9 Hypotension, unspecified; G89.18 Other acute postprocedural pain; M17.0 Bilateral primary osteoarthritis of knee; Y83.6 Removal of other organ (partial) (total) as the cause of abnormal reaction of the patient, or of later complication, without mention of misadventure at the time of the procedure; E11.649 Type 2 diabetes mellitus with hypoglycemia without coma; K59.00 Constipation, unspecified; M19.90 Unspecified osteoarthritis, unspecified site; E83.42 Hypomagnesemia; Z96.651 Presence of right artificial knee joint; E87.8 Other disorders of electrolyte and fluid balance, not elsewhere classified; E66.9 Obesity, unspecified; T45.515A Adverse effect of anticoagulants, initial encounter; Z87.891 Personal history of nicotine dependence; Z79.01 Long term (current) use of anticoagulants; Z79.4 Long term (current) use of insulin; Z79.84 Long term (current) use of oral hypoglycemic drugs; Z79.85 Long-term (current) use of injectable non-insulin antidiabetic drugs; Z79.899 Other long term (current) drug therapy; Z68.33 Body mass index [BMI] 33.0-33.9, adult
CPT/HCPCS: 36415; 71275; 74177; 80048; 80053; 80076; 81001; 82803; 82962; 83036; 83605; 83690; 83880; 84484; 85025; 87040; 87070; 87077; 87086; 87186; 87205; 93005; 97110; 97162; 97166; 97530; 99285; J1171; J2270; J2405; J2543; J7120; Q9967

== ENCOUNTER 2025-06-19 10:09 | Observation (INO) | payer MEDICARE, SELFPAY ==
--- OUTSIDE RECORDS SUMMARY | 2024-11-18 16:30 | XMS_ITS ---
Author Organization [facility] Address [address] [place] [address] Care Team Providers Care Systems Engineering Manager Name Role Phone Jeremie Schneider Primary Care Provider [phone] Migration, Provider Unavailable Unavailable REASON FOR VISIT [facility] To [facility] Conversion Encounter Medications Medication SIG (Take, Route, Frequency, Duration) Notes Start Date End Date Status LORTAB 10/325 ORALLY QID *Please review f or potential replacement for e-prescription and drug interaction check* Active Pioglitazone HCl 45 MG 1 tab(s) orally once a day; Duration: 30 day(s) Active levoFLOXacin 500 MG 1 tab(s) orally ever y 24 hours; Duration: 10 day(s) Active metFORMIN HCl 1000 MG 1 tab(s) orally 2 times a day; Duration: 30 day(s) Active ALPRAZolam 1 MG 1 tab(s) orally twic e a day Active Citalopram Hydrobromide 10 MG 1 tab(s) orally once a day; Duration: 30 day(s) Active Gabapentin 800 MG 1 tab(s) orally twic e a day Active Januvia 50 MG 1 tab(s) orally once a day; Duration: 30 day(s) Active Tresiba FlexTouch 100 UNIT/ML 28 units daily subcutaneously once a day Active Finasteride 5 MG 1 tab(s) orally once a day; Duration: 30 day(s) Active PROAIR HFA 200 METERED INHAL 2 PUFFS QID 1 puff 3 times a day *Please review for potential replacement for e-prescription and drug interaction check* Active Encounters Encounter Location Date Provider Diagnosis [facility] [address] [place] [address] 11/18/2024 Provider Migration Plan Of Treatment No Information Progress Notes * Boubacar SOTODOB:1940 (85 yo M)Acc No.[id number]:11/18/2024 Patient: Boubacar HOBSON Provider: Philly Torres :1940 A ge:84 Y S ex:Male Date:11/18/2024 Address:[address] [place] [address] [place], [facility] Pcp:Jeremie Schneider Subjective: * Chief Complaints: * 1 . [facility] Conversion Encounter. * Medical History: * Medications: T aking PROAIR HFA 200 METERED INHAL 2 PUFFS QID , Notes to Pharmacist: 1 puff 3 times a day *Please review for potential replacement for e-prescription and drug interaction check*, Taking Citalopram Hydrobromide 10 MG Tablet 1 tab(s) orally once a day , Taking Tresiba FlexTouch 100 UNIT/ML Solution Pen-injector 28 units daily subcutaneously once a day , Taking Finasteride 5 MG Tablet 1 tab(s) orally once a day , Taking Gabapentin 800 MG Tablet 1 tab(s) orally twice a day , Taking Januvia 50 MG Tablet 1 tab(s) orally once a day , Taking metFORMIN HCl 1000 MG Tablet 1 tab(s) orally 2 times a day , Taking ALPRAZolam 1 MG Tablet 1 tab(s) orally twice a day , Taking Pioglitazone HCl 45 MG Tablet 1 tab(s) orally once a day , Taking levoFLOXacin 500 MG Tablet 1 tab(s) orally every 24 hours , Taking LORTAB 10/325 ORALLY QID , Notes to Pharmacist: *Please review for potential replacement for e-prescription and drug interaction check* Objective: * Vitals: Assessment: Plan: * Treatment: * * Electronic signature of Prov ider Migration on 06/19/2025 at 10:24 AM EST Sign off status: Pending * Provider: Philly Torres Date: 0 11/18/2024 Generated for Eliel love/Mani/Minerva on: 1 08/19/2024 10:24 AM EST
[2025-06-19] VITALS (11 sets, daily range): BP systolic 105–128; BP diastolic 66–81; PULSE 75–104; RESP 16–18; TEMP 36.6–37; O2SAT 91–96; BMI 32.7; BMI 32.3
--- OUTSIDE RECORDS SUMMARY | 2025-06-19 10:23 | XMS_ITS | Patient Health Record ---
Author Organization [facility] Address [address] [place] [address] Care Team Providers Care Weight Analyst Name Role Phone Jeremie Schneider Primary Care Provider [phone] Migration, Provider Unavailable Unavailable Allergies No Known [...] Status W/U Status Risk Notes Problem Diverticulitis (28646997) Diverticulitis (K57.92) Active confirmed Problem Type II diabetes mellitus without complication (754145218) Controlled type 2 diabetes mellitus without complication, without long-term current use of insulin (E11.9) Active confirmed Problem Diverticulitis of colon (677578392) Diverticulitis of intestine without perforation or abscess without bleeding, unspecified part of intestinal tract (K57.92) Active confirmed Encounters Encounter Location Date Provider Diagnosis [facility] [address] [place] [address] 11/18/2024 Provider Migration Plan Of Treatment No Information Insurance Providers Payer Name Payer Address Payer Phone Subscriber Number Group Number Insured Name Patient Relationship to Insured Coverage Start Date Coverage End Date [employer] [address] [place] [address] [id number] Boubacar Baxter Self - patient is the insured Medical (General) History Medical History History ICD Code Diabetes Anxiety Arthritis Surgical History Surgery Date(Month/Year) removal of lung to clean/put back in 199 5 fractured ankles Hospitalization History Reason Date(Month/Year) removal of lung to clean/put back in 199 5 pneumonia 2020
--- OUTSIDE RECORDS SUMMARY | 2025-06-19 10:23 | XMS_ITS | Clinical Summary ---
Author Organization [facility] Address [address] [place] [address] Care Team Providers Care Supervisor Blast Furnace Name Role Phone Unknown, Attending Provider Primary [...] therelease of HIV test results or diagnoses. [id number] Allergies No known active allergies Medications [...] MD LAB BLOOD ORDERABLES Final Resul t [facility] [address] [place] [address], [facility] from Last 3 Months or Most Recently Relevant to Health Maintenance Insurance [employer] Advance Directives For more information, please contact: [phone] * Full Code (Latest Code Status on File) Date Activated Date Inactivated Comments 06/26/2022 11:06 PM 06/30/2022 7:56 PM Care Teams Supervisor Blast Furnace Relationship Specialty Start Date End Date Unknown, Attending Provider PCP - General 06/26/22
--- OUTSIDE RECORDS SUMMARY | 2025-06-19 10:23 | XMS_ITS | Clinical Summary ---
Author Organization [facility] Address [address] [place] [address] Care Team Providers Care Electronics Warfare Technician Name Role Phone Unavailable Primary Care Provider [...]
--- OUTSIDE RECORDS SUMMARY | 2025-06-19 10:24 | XMS_ITS | Clinical Summary ---
Author Organization [employer] ([place], [place], [place], [place], [place]) Address [address] [place] [address] Care Team Providers Care Yard Switch Operator Name Role Phone Chaparro Almanza MD Primary Care Provider [phone] Allergies No known active allergies Medications ALPRAZolam [...] the past 12 months, has t he [employer], gas, oil, or water [employer] threatened to shut off services in your [...] Do you speak a language other than Russian at [facility]? No 12/29/2023 Do you [...] (#1) 2025 05/14/2023, 2015 Insurance [place] [id number] [facility] Advance Directives For more information, please contact: [phone] * Full Code (Latest Code Status on File) Date Activated Date Inactivated Comments 12/29/2023 6:25 PM 01/02/2024 1:11 PM Care Teams Yard Switch Operator Relationship Specialty Start Date End Date Chaparro Almanza MD [address] [place] [address] [address] [place] [address] PCP - General General Internal Medicine 12/29/23
--- OUTSIDE RECORDS SUMMARY | 2025-06-19 10:24 | XMS_ITS | Clinical Summary ---
[facility] Organization [facility] Address [address] [place] [address] Care Team Providers Care Builder'S Labourer Name Role Phone Chaparro Almanza MD Primary Care Provider [phone] Allergies No known active allergies Medications Insulin [...] from Last 3 Months Insurance [place] [id number] [employer] MED[employer] ADVANTAGE PPO Care Teams Builder'S Labourer Relationship Specialty Start Date End Date Chaparro Almanza MD [address] [place] [address] PCP - General Internal Medicine 05/29/22
--- OUTSIDE RECORDS SUMMARY | 2025-06-19 10:24 | XMS_ITS | Referral Summary ---
Author Organization [employer] ([place], [place], [place], [place], [place]) Address [address] [place] [address] Care Team Providers Care Grocery Clerk Selling Name Role Phone Chaparro Almanza MD Primary Care Provider [phone] Allergies No known active allergies Medications ALPRAZolam [...] the past 12 months, has t he [employer], gas, oil, or water [employer] threatened to shut off services in your [...] Do you speak a language other than Lithuanian at [facility]? No 12/29/2023 Do you want help with [...] Plan of Treatment Not on file Insurance [facility] MED[employer] ACCESS HMO MAP Advance Directives For more information, please contact: [phone] * Full Code (Latest Code Status on File) Date Activated Date Inactivated Comments 12/29/2023 6:25 PM 01/02/2024 1:11 PM Care Teams Grocery Clerk Selling Relationship Specialty Start Date End Date Chaparro Almanza MD [address] [facility] [address] [place] [address] PCP - General General Internal Medicine 12/29/23
--- NOTE | 2025-06-19 10:28 | XR_ITS ---
FINAL REPORT CLINICAL HISTORY: short of breath COMPARISON: 06/06/2025 FINDINGS: A portable view of the chest was obtained. Cardiac and mediastinal silhouettes are within normal limits. Worsening interstitial opacities could represent pulmonary edema. No new infiltrate. There is no pleural effusion or pneumothorax. IMPRESSION: Worsening interstitial opacities could represent pulmonary edema. Reviewed, Interpreted and Dictated by Soraya Andrea MD Transcribed by Marie Malone Authenticated and [facility]
--- NOTE | 2025-06-19 10:28 | CT_ITS ---
FINAL REPORT TECHNIQUE: Thin section axial images are obtained through the abdomen and pelvis after intravenous contrast. Reconstruction images were obtained from the axial data. Exam was performed using dose reduction techniques. CLINICAL HISTORY: vomiting after gb surgery COMPARISON: 06/11/2025 FINDINGS: LUNG BASES: There are improving areas of atelectasis at the lung bases. Heart size is normal. LIVER: Homogeneous. No focal lesion. GALLBLADDER/BILIARY SYSTEM: Gallbladder is surgically absent. Previously seen surgical drain has been removed. There is thick walled collection in the gallbladder fossa with surrounding abnormal attenuation as well as a small amount of air concerning for abscess. This measures 7.2 x 4.4 cm on coronal images and has increased slightly in size since previous exam. No biliary dilatation. SPLEEN: Unremarkable. PANCREAS: Unremarkable. ADRENALS: Unremarkable. KIDNEYS/URETERS/BLADDER: Bilateral renal cysts. No hydronephrosis. Unremarkable urinary bladder. GI TRACT: Small hiatal hernia. No small bowel obstruction or dilatation. Appendix not seen but no secondary signs of acute appendicitis. Moderate amount of retained stool. Diverticulosis without evidence of diverticulitis. PELVIC ORGANS: Prostate unremarkable. LYMPH NODES/RETROPERITONEUM/MESENTERY: No lymphadenopathy. No abdominal aortic aneurysm. ABDOMINAL WALL: No abnormality. FREE FLUID: No ascites. BONES: No acute osseous abnormality. IMPRESSION: Loculated air and fluid collection in the gallbladder fossa and the patient's status postcholecystectomy, favor abscess. Previously seen surgical drain has been removed. Reviewed, Interpreted and Dictated by Soraya Andrea MD Transcribed by Marie Malone Authenticated and [facility]
--- NOTE | 2025-06-19 10:31 | ED_ITS ---
<Statement entered by Archie Lnik MD - 06/19/25 17:12> I consulted the SATISH, and we discussed the complexity of the problems being addressed. I approved the treatment and management plan for this patient's care in the emergency department, thus performing a substantial portion of the medical decision making. Rohit Link MD Discharge Plan Disposition Chief Complaint: Nausea/Vomiting/Diarrhea Prescriptions Prescriptions: No Action tamsulosin 0.4 MG capsule 0.4 mg PO HS rivaroxaban 20 mg tablet 20 mg PO QPMWITHMEAL midodrine 5 mg tablet 10 mg PO TID esomeprazole magnesium 40 mg capsule,delayed release(DR/EC) 40 mg PO DAILY Patient Comments: TAKE 1 CAPSULE BY MOUTH ONCE DAILY insulin degludec [Tresiba FlexTouch U-100] 100 unit/mL (3 mL) insulin pen 28 unit SQ DAILY ferrous sulfate [FeroSul] 325 mg (65 mg iron) tablet 325 mg PO DAILY Patient Comments: TAKE 1 TABLET BY MOUTH ONCE DAILY alprazolam 0.5 mg tablet 0.5 mg PO BIDP PRN (Reason: Anxiety) 10 Days Qty: 20 0RF metformin 1,000 MG tablet 1,000 mg PO BIDWMEAL finasteride 5 MG tablet 5 mg PO DAILY potassium chloride 10 mEq capsule, extended release 10 meq PO DAILY Patient Comments: TAKE 1 CAPSULE BY MOUTH ONCE DAILY IN THE MORNING gabapentin 400 mg capsule 400 mg PO BID Patient Comments: TAKE 1 CAPSULE BY MOUTH TWICE DAILY triamcinolone acetonide 0.1 % cream 1 applic TOPICAL BID Patient Comments: APPLY A THIN LAYER TO THE AFFECTED AREA(S) BY TOPICAL ROUTE TWICE A DAY oxycodone-acetaminophen 7.5-325 mg tablet 1 tab PO Q6HP PRN (Reason: Severe Pain (Scale Score 7-10)) Patient Comments: TAKE 1 TABLET BY MOUTH EVERY 6 HOURS NEEDED FOR SEVERE PAIN memantine 5 mg tablet 5 mg PO BID Patient Comments: TAKE 1 TABLET BY MOUTH TWICE DAILY quetiapine 50 mg tablet 25 mg PO HS Patient Comments: take a quarter of tablet at bedtime (12.5mg) docusate sodium 250 mg Capsule 250 mg PO DAILY 30 Days Qty: 30 0RF amoxicillin-pot clavulanate 875-125 mg tablet 1 tab PO BID Qty: 20 0RF levofloxacin 750 mg tablet 750 mg PO DAILY Qty: 10 0RF Referrals Follow up/Referrals: Courtney Almanza MD [Primary Care Provider, Medical] - See instructions Instructions Patient Instructions: DI for Nausea in Adults, DI for Nausea in Children, DI for Diarrhea and Traveler's Diarrhea in Adults, DI for Diarrhea and Traveler's Diarrhea in Children Print Language Print Language: Singaporean Discharge ED Provider: Archie Link General Adult HPI General Chief complaint: Nausea/Vomiting/Diarrhea Stated complaint: Stomach Pain Time Seen by Provider: 06/19/25 10:17 History of Present Illness HPI narrative: 85-year-old male presents to the ED for abdominal pain. states that he has been complaining from the moment he gets up to the moment he goes to bed of pain. She says that he is just been uncomfortable. Patient tells me that he is all right . Patient went into Dr. Wen's office this morning, this is the surgeon who took his gallbladder out. Patient had his ricardo removed and had his GRICELDA drains removed today. Patient vomited in Dr. Wen's office and Dr. Wen stated that the vomitus looked like feces. Patient has not had vomiting until today. Patient has history of COPD, dementia, CHF, A-fib, leukopenia, osteoarthritis, acute hypoxemia respiratory failure, pneumonia, diabetes, anxiety, hip fracture, ascending aortic aneurysm, and back pain. Related Data Home Medications ?Medication ?Instructions ?Recorded ?Confirmed finasteride 5 mg tablet 5 mg PO DAILY 05/12/2106/19 metformin 1,000 mg tablet 1,000 mg PO BIDWMEAL 1 06/19/25 tamsulosin 0.4 mg capsule 0.4 mg PO HS 03/26/22 rivaroxaban 20 mg tablet 20 mg PO QPMWITHMEAL 2 06/19/25 esomeprazole magnesium 40 mg 40 mg PO DAILY 12/05/22 1 08/19/24 capsule,delayed release insulin degludec 100 unit/mL (3 28 unit SQ DAILY 12/0506/19/25 mL) subcutaneous pen (Tresiba FlexTouch U-100 insulin) midodrine 5 mg tablet 10 mg PO TID 12/05/22 ferrous sulfate 325 mg (65 mg 325 mg PO DAILY 11/27/23 06/19/25 iron) tablet (FeroSul) gabapentin 400 mg capsule 400 mg PO BID 06/02/2506/19 memantine 5 mg tablet 5 mg PO BID 06/02/25 5 oxycodone-acetaminophen 7.5 mg-325 1 tab PO Q6HP PRN S evere Pain 06/02/25 06/19/25 mg tablet (Scale Score 7-10) potassium chloride 10 mEq 10 meq PO DAILY 06/02/2512/08 capsule,extended release triamcinolone acetonide 0.1 % 1 applic topical BID 06/19/25 topical cream quetiapine 50 mg tablet 25 mg PO HS 06/03/25 5 Previous Rx's ?Medication ?Instructions ?Recorded alprazolam 0.5 mg tablet 0.5 mg PO BIDP PRN Anxiety 1 0 days 11/29/23 #20 tabs amoxicillin 875 mg-potassium 1 tab PO BID #20 tabs clavulanate 125 mg tablet docusate sodium 250 mg capsule 250 mg PO DAILY 30 days #30 caps 06/13/25 levofloxacin 750 mg tablet 750 mg PO DAILY #10 tabs Allergies Allergy/AdvReac Type Severity Reaction Status Date / Time No Known Allergies Allergy Verified 06/19/25 09:41 [facility] Disclaimer: The information contained in this section may have been updated after the patient was seen, as this information can be updated by other users. Medical History Opioid overdose Generalized weakness Atrial fibrillation with rapid ventricular response Intractable nausea and vomiting Dementia COPD (chronic obstructive pulmonary disease) Abscess of lung Acute diverticulitis Arthritis Diabetes Afib Hypotension Abnormal electrocardiography Dyspnea Surgical History History of laparoscopic cholecystectomy History of total right knee replacement Family History Other Family history of cancer Social History Smoking Status: Never smoker smoking status stop date: 25 years ago alcohol intake: former substance use type: denies use current occupational status: disabled Travel in the last 8 weeks?: Inside the [place] household members: spouse and children housing: house Have you lived/traveled outside [place] in past 30 days?: No Contact w/someone who lives/traveled outside [place] past 30 days?: No Exposure to someone with infectious disease in past 14 days?: No Do you have a fever (greater than 100.4 F or 38 C)?: No Have you tested positive for COVID-19?: No Exposed to someone with COVID-19 in past 14 days?: No Do you have a sore throat?: No Do you have a cough?: No Do you have any weakness?: No Do you have any diarrhea?: No Are you experiencing any unusual bleeding?: No Do you have any muscle aches/pain?: No Do you have any abdominal pain?: No Are you experiencing loss of taste or smell?: No Other Medical History Have you received the Flu Vaccine for this season: No Have you received the Pneumonia Vaccine: No ROS Obtained: Yes Systems reviewed as appropriate & no additional complaints except as documented Constitutional Constitutional: Reports as per HPI Physical Exam General General appearance: alert and in no apparent distress Head Head exam: normocephalic Eye Eye exam: Present PERRL and EOMI ENT ENT exam: Present normal oropharynx and mucous membranes moist Neck Neck exam: Present full ROM and trachea midline Chest Chest inspection: Present normal inspection Respiratory Respiratory exam: Present normal lung sounds bilaterally Cardiovascular Cardiovascular exam: Present regular rate, normal rhythm, normal heart sounds, +S1 and +S2 Abdominal Exam Abdominal exam: Present soft and normal bowel sounds exam: Present normal inspection Extremities Exam Extremities exam: Present normal inspection, full ROM and normal capillary refill Back Exam Back exam: Present normal inspection Neurological Exam Neurological exam: Present alert and oriented X3 Skin Skin exam: Present warm, dry and intact Medical Decision Making Medical Records Screening: Per USPSTF and CDC recommendations, given the prevalence of disease in our region, it is our hospital?s policy to screen for HIV and viral Hepatitis for all patients aged 18 and over and those with ongoing risk factors. Antonio Inquiry Pt receiving controlled substance: No Antonio was queried for this patient: No Vital Signs: 06/19/25 10:32 06/19/25 10:32 06/19/25 10:54 Temperature 98.6 F 98.6 F Temperature Source Oral Oral Pulse Rate 97 H Pulse Rate [Right] 97 H Respiratory Rate 16 16 Blood Pressure 121/66 Blood Pressure [Right Arm] 121/66 Blood Pressure Mean [Right Arm] 84 Blood Pressure Source Automatic Cuff Blood Pressure Source [Right Arm] Automatic Cuff Blood Pressure Position Supine Blood Pressure Position [Right Arm] Supine 02 Sat by Pulse Oximetry 95 95 96 Oxygen Delivery Method Room Air Room Air Room Air 06/19/25 12:01 Temperature Temperature Source Pulse Rate 79 Pulse Rate [Right] Respiratory Rate Blood Pressure 128/68 Blood Pressure [Right Arm] Blood Pressure Mean [Right Arm] Blood Pressure Source Blood Pressure Source [Right Arm] Blood Pressure Position Blood Pressure Position [Right Arm] 02 Sat by Pulse Oximetry 96 Oxygen Delivery Method Room Air Lab Data Lab Results 06/19/25 10:37: WBC 5.9, RBC 4.30 L, Hgb 12.7 L, Hct 39.8 L, MCV 92.6, MCH 29.5, MCHC 31.9, RDW 13.6, Plt Count 274, MPV 9.1, Neut % (Auto) 59.1, Lymph % (Auto) 25.9, Woodruff % (Auto) 9.5 H, Eos % (Auto) 3.7, Baso % (Auto) 0.8, Neut # (Auto) 3.5, Lymph # (Auto) 1.5, Woodruff # (Auto) 0.6, Eos # (Auto) 0.2, Baso # (Auto) 0.1, PT 16.0 H, INR 1.48 H, APTT 40.1 H, Sodium 135 L, Potassium 4.1, Chloride 98, C arbon Dioxide 31 H, Anion Gap 10.1, BUN 16, Creatinine 1.20, Estimated Creat Clear 65, Estimated GFR 57 L, Est GFR ( Amer) 69, Glucose 146 H, Calcium 9.0, Magnesium 1.3 L, Total Bilirubin 0.6, AST 29, ALT 20, Alkaline Phosphatase 72, Troponin I < 0.01, Total Protein 7.1, Albumin 3.9, Globulin 3.2, Albumin/Globulin Ratio 1.2, Lipase 64 06/19/25 10:37 06/19/25 10:37 Orders (Tests/Meds): ED MEDICATIONS Generic Name Dose Route Start Last Admin Trade Name Freq PRN Reason Stop Dose Admin Acetaminophen 650 mg 06/19/25 14:18 Acetaminophen 325mg Tab PO 07/19/25 14:17 Q4HP PRN Fever or Mild Pain (1-3) Cefepime HCl 2 gm/ Sodium 100 mls @ 200 mls/hr 06/19/25 14:03 Chloride IV 06/19/25 14:32 ONCE ONE Metronidazole 500 mg in 100 mls @ 100 mls/hr 06/19/25 14:03 Flagyl 500mg/100ml Ivpb IV 06/19/25 15:02 ONCE ONE Vancomycin/PEG/NADA/Lysine/Water 1.75 gm in 350 mls @ 175 mls/hr 06/19/25 14:15 Vancomycin 1.75gm/350ml (Peg) Premix IV 06/19/25 16:14 ONCE ONE Morphine Sulfate 4 mg 06/19/25 14:18 Morphine 4mg/Ml Syringe IV 07/19/25 14:17 Q4HP PRN Severe Pain (7-10) Ondansetron HCl 4 mg 06/19/25 14:18 Ondansetron 4mg/2ml Vial IV 07/19/25 14:17 Q8HP PRN Nausea Sodium Chloride 8 ml 06/19/25 10:27 06/19/25 12:01 Sodium Chloride 0.9% 10ml Vial IV 07/19/25 10:26 8 ml NEEDED PRN Administration dilute pepcid Discontinued Medications Generic Name Dose Route Start Last Admin Trade Name Freq PRN Reason Stop Dose Admin Acetaminophen 1,000 mg 06/19/25 10:27 06/19/25 11:59 Acetaminophen 1,000mg/100ml Vial IV 06/19/25 10:28 1,000 mg ONCE ONE Administration Famotidine 20 mg 06/19/25 10:27 06/19/25 12:00 Famotidine 20mg/2ml Vial IV 06/19/25 10:28 20 mg ONCE ONE Administration Sodium Chloride 1,000 mls @ 999 mls/hr 06/19/25 10:27 06/19/25 13:26 Sod Chlor 0.9% 1000ml Bag IV 06/19/25 11:27 Infused .Q1H1M ONE Infusion Magnesium Sulfate 2 gm in 50 mls @ 50 mls/hr 06/19/25 11:24 06/19/25 13:25 Magnesium Sulfate 2gm/50ml Premix IV 06/19/25 12:23 50 mls/hr ONCE ONE Administration Iopamidol 75 ml 06/19/25 11:56 06/19/25 11:56 Iopamidol-370 (76%);100ml Bottle IV 06/19/25 11:57 75 ml ONCE ONE Administration Miscellaneous 1 each 06/19/25 14:15 Vancomycin Consult Request NOTAPPLIC 07/19/25 14:14 CONSULT PHARMACY ON LICENSE OF [facility] Ondansetron HCl 4 mg 06/19/25 10:27 06/19/25 11:59 Ondansetron 4mg/2ml Vial IV 06/19/25 10:28 4 mg ONCE ONE Administration Sodium Chloride 10 ml 06/19/25 11:56 06/19/25 11:56 Sodium Chloride 0.9% 10ml Syr (Rad Only) IV 06/19/25 11:57 10 ml ONCE ONE Administration ORDERS Category Date Time Status CT abdomen pelvis w con Stat Cat Scan 06/19/25 10:28 Completed Consult to General Surgery [CONS] Routine Cons 06/19/25 14:22 Ordered Chest XR -- portable [XR chest portable] Stat Exams 06/19/25 10:28 Completed CBC [Complete Blood Count Auto Diff] Stat Lab 06/19/25 10:37 Completed Complete Blood Count Auto Diff AMLAB Lab 06/20/25 06:00 Ordered Complete Blood Count Auto Diff AMLAB Lab 06/21/25 06:00 Ordered Complete Blood Count Auto Diff AMLAB Lab 06/22/25 06:00 Ordered Comprehensive Metabolic Panel AMLAB Lab 06/20/25 06:00 Ordered Comprehensive Metabolic Panel AMLAB Lab 06/21/25 06:00 Ordered Comprehensive Metabolic Panel AMLAB Lab 06/22/25 06:00 Ordered Comprehensive Metabolic Panel Stat Lab 06/19/25 10:37 Completed HIV Combo Stat Lab 06/19/25 10:37 Received Hepatitis C Ab Qual. W/ RFX Stat Lab 06/19/25 10:37 Received Lipase Stat Lab 06/19/25 10:37 Completed Magnesium AMLAB Lab 06/20/25 06:00 Ordered Magnesium AMLAB Lab 06/21/25 06:00 Ordered Magnesium AMLAB Lab 06/22/25 06:00 Ordered Magnesium Stat Lab 06/19/25 10:37 Completed PT INR [Prothrombin Time INR] Stat Lab 06/19/25 10:37 Completed PTT [Activated Partial Thrombo Time] Stat Lab 06/19/25 10:37 Completed Trop I [Troponin I] Stat Lab 06/19/25 10:37 Completed Medical Decision Narrative: patient is a 85-year-old male presenting to the emergency department for evaluation of vomiting that appeared to look like feces. He vomited in Dr. Wen's office today and Dr. Wen sent patient to the ED for evaluation.. Patient is hemodynamically stable and nontoxic-appearing upon arrival, afebrile. Differential diagnosis includes possible abscess, postop complication, among others. Workup will be conducted with hematologic labs, specific imaging, provocative tests. Initial inventions include crystalloid bolus, analgesics, antibiotics. Initial workup reviewed by me hematologic labs are remarkable for With lytic lesions white blood cell count 5.9, sodium 135 potassium, 4.1 mag 1.3 which was replaced here in the ED, troponin was less than 0.01, other labs were nonactionable today. CT scan showed loculated air and fluid collection in the gallbladder fossa status postcholecystectomy. The drain has been removed. I have talked to Dr. Wen about this. He wants to admit patient to possibly place another drain and give antibiotics. I have started cefepime, Flagyl to get antibiotic started. I also talked to hospitalist team who is excepted patient. Patient safe for admission. Critical Care Critical Care Time Critical Care Time: No
--- NOTE | 2025-06-19 10:37 | ECG_ITS ---
APPROVED REPORT Exam: Resting ECG HR:93 bpm ECG Measurements Heart Rate 93 AXES QRSd 120 QRS -74 QT 371 T 35 QTc 421 Conclusion ATRIAL FIBRILLATION WITH ABERRANT CONDUCTION OR VENTRICULAR PREMATURE COMPLEXES RIGHT BUNDLE BRANCH BLOCK [120+ ms QRS DURATION, UPRIGHT V1, 40+ ms S IN I/aVL/V4/V5/V6] LEFT ANTERIOR FASCICULAR BLOCK [QRS AXIS <= -45, QR IN I, RS IN II] ABNORMAL ECG Electronically signed by : LUISA FLORES, 06/25/2025 07:15:12
[2025-06-19 10:47] LABS: Hematocrit 39.8 % (42.0-52.0); Hemoglobin 12.7 g/dL (14.1-18.0); Immature Granulocytes % 1.0 %; Mean Corpuscular HGB Conc 31.9 g/dL (31.8-35.4); Mean Corpuscular Hemoglobin 29.5 pg (27.0-31.2); Mean Corpuscular Volume 92.6 fl (80-94); Nucleated Red Blood Cells % 0 %; Platelet Count 274 K/mm3 (142-424); Red Blood Count 4.30 M/mm3 (4.60-6.20); Red Cell Distribution Width-SD 46.1 fL; White Blood Count 5.9 K/mm3 (4.8-10.8)
[2025-06-19 11:00] LABS: Activated Partial Thrombo Time 40.1 seconds (22.8-30.6); Alanine Aminotransferase 20 U/L (12-78); Albumin Level 3.9 g/dl (3.5-5.0); Albumin/Globulin Ratio 1.2 (1.1-1.8); Alkaline Phosphatase 72 U/L (38-126); Anion Gap 10.1 mEq/L (5-15); Aspartate Amino Transferase 29 U/L (17-59); Bilirubin,Total 0.6 mg/dl (0.2-1.3); Blood Urea Nitrogen 16 mg/dl (9-20); Calcium 9.0 mg/dl (8.4-10.2); Carbon Dioxide 31 mmol/L (22.0-30.0); Chloride 98 mmol/L (98-107); Creatinine Clearance Estimated 65 mL/min (50-200); Creatinine,Serum 1.20 mg/dl (0.66-1.25); Estimated Glomerular Filt Rate 57 ml/min (>60); GFR (African American) 69 ML/MIN (>60); Globulin 3.2 g/dL (1.3-3.2); Glucose 146 mg/dl (74-100); INR 1.48 (0.9-1.1); Lipase 64 U/L (23-300); Magnesium 1.3 mg/dl (1.6-2.3); Potassium 4.1 mmoL/L (3.5-5.1); Prothrombin Time 16.0 seconds (10.1-12.5); Sodium 135 mmol/L (136-145); Total Protein,Serum 7.1 g/dl (6.3-8.2)
[2025-06-19 11:16] LABS: Troponin I < 0.01 ng/ml (0.00-0.034)
[2025-06-19] MEDS: IOPAMIDOL-370 (76%);100ML BOTTLE 75 ML IV (11:56)
[2025-06-19] MEDS: SODIUM CHLORIDE 0.9% 10ML SYR (RAD ONLY) 10 ML IV (11:56)
[2025-06-19] MEDS: ONDANSETRON 4MG/2ML VIAL 4 MG IV (11:59)
[2025-06-19] MEDS: ACETAMINOPHEN 1,000MG/100ML VIAL 1000 MG IV (11:59)
[2025-06-19] MEDS: FAMOTIDINE 20MG/2ML VIAL 20 MG IV (12:00)
[2025-06-19] MEDS: 0.9 % SODIUM CHLORIDE 1000ML 1,000 ML 999 ML IV (12:00)
[2025-06-19] MEDS: SODIUM CHLORIDE 0.9% 10ML VIAL 8 ML IV (12:01)
[2025-06-19] MEDS: MAGNESIUM SULFATE IN WATER 2 GM/50 ML PIGGYBACK IV (13:25)
--- NOTE | 2025-06-19 14:22 | PC.NURSE ---
Notified House for an admission.
--- NOTE | 2025-06-19 14:25 | PC.NURSE ---
Dr. Sahu and Caity requested to start the antibiotics without drawling blood cultures.
[2025-06-19] MEDS: METRONIDAZ/SOD CHL 500 MG/100 ML PIGGYBACK 100 MG IV (14:36)
[2025-06-19 14:45] LABS: Hepatitis C Ab Qual. W/ RFX NEGATIVE (Negative)
--- NOTE | 2025-06-19 14:57 | HMH.PHAINT1 ---
Pharmacy Intervention Comments: MEDICATION RECONCILIATION COMPLETED ON PATIENT USING EXTERNAL FILL HISTORY FROM PHARMACY AND DISCHARGE SUMMARY FROM PREVIOUS ADMISSION. -ANTONIO HUGGINS, TONOD
--- NOTE | 2025-06-19 15:08 | EXP.SURG.CON ---
History of Present Illness *Admission Date: 06/19/25 *Reason for visit:: Vomiting, abscess *History of present illness: Patient is an 85-year-old male. He underwent laparoscopic cholecystectomy with Dr. Dempsey as an inpatient on 06/02/2025. Pathology did reveal acute cholecystitis with cholelithiasis. He remained in inpatient for several days for convalescence. He did have a drain placed at the time of his initial surgery inferior to the gallbladder fossa. Prior to discharge he had GRICELDA drain fluid sent for bilirubin which was 1 which was against a biliary leak. He did have a HIDA scan prior to his initial discharge to assess for possible leak and none was noted. He was discharged on 06/06/2025. He returned and was readmitted on 06/10/2025 with various vague complaints including worsening abdominal pain. He was found to have a mild leukocytosis. He had a CT scan which revealed findings of loculated fluid and gas collection in the gallbladder fossa. Consideration was given for possible drainage with interventional radiology however he ultimately convalesced well and was discharged on 06/13/2025. Upon return to the office on today on 06/19/25 he was doing well without any appreciable complaints. Tolerating diet. GRICELDA drain has had scant serous output. Patient had no fever. His GRICELDA drain was scant serous liquid and therefore was removed as it was not draining any potential fluid collection in previous CT scan showed it to be inferior to the gallbladder fossa. Plan was made for outpatient follow-up CT scan to assess for maturation of any residual abscess to see if he would require elective drain placement. However as he was being discharged from the office patient had feculent vomiting. He therefore was sent to the emergency department for evaluation. He had a normal white blood cell count. Temperature is 98.6. Normal pulse rate. He had a CT scan performed which revealed loculated air and fluid collection in the gallbladder fossa. It was felt that this was favoring an abscess. . [facility] Disclaimer: The information contained in this section may have been updated after the patient was seen, as this information can be updated by other users. Medical History (Updated 06/19/25 @ 14:31 by Caity Olea (ED), [employer]) Opioid overdose Generalized weakness Atrial fibrillation with rapid ventricular response Intractable nausea and vomiting Dementia COPD (chronic obstructive pulmonary disease) Abscess of lung Acute diverticulitis Arthritis Diabetes Afib Hypotension Abnormal electrocardiography Dyspnea Surgical History History of laparoscopic cholecystectomy History of total right knee replacement Family History Other Family history of cancer Social History Smoking Status: Never smoker smoking status stop date: 25 years ago alcohol intake: former substance use type: denies use current occupational status: disabled Travel in the last 8 weeks?: Inside the [place] household members: spouse and children housing: house Have you lived/traveled outside US in past 30 days?: No Contact w/someone who lives/traveled outside US past 30 days?: No Exposure to someone with infectious disease in past 14 days?: No Do you have a fever (greater than 100.4 F or 38 C)?: No Have you tested positive for COVID-19?: No Exposed to someone with COVID-19 in past 14 days?: No Do you have a sore throat?: No Do you have a cough?: No Do you have any weakness?: No Do you have any diarrhea?: No Are you experiencing any unusual bleeding?: No Do you have any muscle aches/pain?: No Do you have any abdominal pain?: No Are you experiencing loss of taste or smell?: No Meds Home Medications and Allergies Home Medications ?Medication ?Instructions ?Recorded ?Confirmed ?Type finasteride 5 mg tablet 5 mg PO DAILY 05/12/21 06/19/25 History metformin 1,000 mg tablet 1,000 mg PO BIDWMEAL 05/12/21 06/19/25 History tamsulosin 0.4 mg capsule 0.4 mg PO HS 03/26/22 06/19/25 History rivaroxaban 20 mg tablet 20 mg PO QPMWITHMEAL 04/27/22 06/19/25 History esomeprazole magnesium 40 mg 40 mg PO DAILY 12/05/22 06/19/25 History capsule,delayed release insulin degludec 100 unit/mL (3 28 unit SQ DAILY 12/05/22 06/19/25 History mL) subcutaneous pen (Tresiba FlexTouch U-100 insulin) midodrine 5 mg tablet 10 mg PO TID 12/05/22 06/19/25 History ferrous sulfate 325 mg (65 mg 325 mg PO DAILY 11/27/23 06/19/25 History iron) tablet (FeroSul) alprazolam 0.5 mg tablet 0.5 mg PO BIDP PRN Anxiety 10 days 11/29/23 06/19/25 Rx #20 tabs gabapentin 400 mg capsule 400 mg PO BID 06/02/25 06/19/25 History memantine 5 mg tablet 5 mg PO BID 06/02/25 06/19/25 History oxycodone-acetaminophen 7.5 mg-325 1 tab PO Q6HP PRN Severe Pain 06/02/25 06/19/25 History mg tablet (Scale Score 7-10) potassium chloride 10 mEq 10 meq PO DAILY 06/02/25 06/19/25 History capsule,extended release triamcinolone acetonide 0.1 % 1 applic topical BID 06/02/25 06/19/25 History topical cream quetiapine 50 mg tablet 25 mg PO HS 06/03/25 06/19/25 History amoxicillin 875 mg-potassium 1 tab PO BID #20 tabs 06/13/25 06/19/25 Rx clavulanate 125 mg tablet docusate sodium 250 mg capsule 250 mg PO DAILY 30 days #30 caps 06/13/25 06/19/25 Rx levofloxacin 750 mg tablet 750 mg PO DAILY #10 tabs 06/13/25 06/19/25 Rx New Prescriptions to Start Prescriptions: Allergies Allergy/AdvReac Type Severity Reaction Status Date / Time No Known Allergies Allergy Verified 06/19/25 09:41 Exam (Inpt) Vital signs and Labs for Last 24 Hours: Temp Pulse Resp BP Pulse Ox O2 Del Method 98.6 F 79 16 128/68 96 Room Air 06/19/25 10:32 06/19/25 12:01 06/19/25 10:32 06/19/25 12:01 06/19/25 12:01 06/19/25 12:01 Laboratory Results - last 24 hr 06/19/25 10:37: WBC 5.9, RBC 4.30 L, Hgb 12.7 L, Hct 39.8 L, MCV 92.6, MCH 29.5, MCHC 31.9, RDW 13.6, Plt Count 274, MPV 9.1, Neut % (Auto) 59.1, Lymph % (Auto) 25.9, [place] % (Auto) 9.5 H, Eos % (Auto) 3.7, Baso % (Auto) 0.8, Neut # (Auto) 3.5, Lymph # (Auto) 1.5, [place] # (Auto) 0.6, Eos # (Auto) 0.2, Baso # (Auto) 0.1, PT 16.0 H, INR 1.48 H, APTT 40.1 H, Sodium 135 L, Potassium 4.1, Chloride 98, Carbon Dioxide 31 H, Anion Gap 10.1, BUN 16, Creatinine 1.20, Estimated Creat Clear 65, Estimated GFR 57 L, Est GFR ( Amer) 69, Glucose 146 H, Calcium 9.0, Magnesium 1.3 L, Total Bilirubin 0.6, AST 29, ALT 20, Alkaline Phosphatase 72, Troponin I < 0.01, Total Protein 7.1, Albumin 3.9, Globulin 3.2, Albumin/Globulin Ratio 1.2, Lipase 64, HCV Ab DERRELL w/Rflx PCR Qn Negative, HIV Ag/Ab Combo Qual Negative I & O for Labs for Last 24 Hours: Intake & Output 06/17/25 06/18/25 06/19/25 06/20/25 10:59 11:59 11:59 11:59 Intake Total 1050 / 1050 Balance 1050 / 1050 Weight 228 lb Constitutional: chronically ill appearing Comment:: No acute distress but somewhat mildly ill-appearing. Comments:: Trocar sites healing well. Tender right upper quadrant. Results Labs 06/19/25 10:37 06/19/25 10:37 Labs: Laboratory Results - last 24 hr 06/19/25 10:37: WBC 5.9, RBC 4.30 L, Hgb 12.7 L, Hct 39.8 L, MCV 92.6, MCH 29.5, MCHC 31.9, RDW 13.6, Plt Count 274, MPV 9.1, Neut % (Auto) 59.1, Lymph % (Auto) 25.9, [place] % (Auto) 9.5 H, Eos % (Auto) 3.7, Baso % (Auto) 0.8, Neut # (Auto) 3.5, Lymph # (Auto) 1.5, [place] # (Auto) 0.6, Eos # (Auto) 0.2, Baso # (Auto) 0.1, PT 16.0 H, INR 1.48 H, APTT 40.1 H, Sodium 135 L, Potassium 4.1, Chloride 98, Carbon Dioxide 31 H, Anion Gap 10.1, BUN 16, Creatinine 1.20, Estimated Creat Clear 65, Estimated GFR 57 L, Est GFR ( Amer) 69, Glucose 146 H, Calcium 9.0, Magnesium 1.3 L, Total Bilirubin 0.6, AST 29, ALT 20, Alkaline Phosphatase 72, Troponin I < 0.01, Total Protein 7.1, Albumin 3.9, Globulin 3.2, Albumin/Globulin Ratio 1.2, Lipase 64, HCV Ab DERRELL w/Rflx PCR Qn Negative, HIV Ag/Ab Combo Qual Negative Assessment and Plan *Assessment and plan (1) Abscess after procedure: Status: Acute Category: Medical Code(s): T81.49XA - Infection following a procedure, other surgical site, initial encounter Plan This potential intra-abdominal abscess in the gallbladder fossa may be causing some issues such as ileus and vomiting with associated focal pain. This may need addressed relatively soon by interventional radiology. Initial consideration has been given for inpatient admission for potential IR drain placement in 24 to 48 hours. However apparently radiology is not available until the end of the week. Discussion was held with the family by the emergency department provider regarding possibilities of outpatient management versus inpatient management at this facility knowing that radiology is not available for several days versus possible transfer to other facility with more expeditious interventional radiology. At this time plan will be for admission for inpatient care at this facility with correction of any hydration or electrolyte abnormalities, intravenous fluids, and possible interval drain placement by radiology in the near future when available.
[2025-06-19] MEDS: CEFEPIME HCL 2 GM in 0.9 % SODIUM CHLORIDE 100 ML IV (16:34)
--- NOTE | 2025-06-19 18:08 | PC.NURSE ---
Called report to DEIDRE Hernandez.
--- NOTE | 2025-06-19 18:18 | EXP.HP ---
History of Present Illness *Admission Date: 06/19/25 *History of present illness: Boubacar Baxter is a 85-year-old male with a medical history significant for recent cholecystectomy, A-fib on Xarelto, type 2 diabetes, orthostatic hypotension, mood disorder, BPH, iron deficient anemia, dementia, GERD who presents after general surgery office visit due to an episode of nausea/vomiting. Patient was recently admitted to our facility for a postop gallbladder fossa abscess after cholecystectomy on 06/02/2025, discharged in stable condition on Augmentin and levofloxacin with a GRICELDA drain. He was doing well, followed up with Dr. Wen in the office today who remove the GRICELDA drain shortly after office visit, patient had an episode of nausea/vomiting for which she was recommended to come to the ED. He denies fever/chills, chest pain, shortness of breath, abdominal pain, intolerance to p.o. intake. CT abdomen/pelvis shows loculated air and fluid collection in the gallbladder fossa consistent with abscess. WBC 5.9, CMP largely unremarkable, magnesium 1.3. Dr. Wen was consulted by the ED, who preferred patient to be transferred to [facility] [place] for definitive treatment with IR guided drainage of abscess. We unfortunately do not have IR until Wednesday, however ultimately patient and family preferred to be admitted to our hospital for IR evaluation on Wednesday. Given these findings, ED provider discussed case with me and I decided to admit patient for postop abscess. From general surgery note: Patient is an 85-year-old male. He underwent laparoscopic cholecystectomy with Dr. Dempsey as an inpatient on 06/02/2025. Pathology did reveal acute cholecystitis with cholelithiasis. He remained in inpatient for several days for convalescence. He did have a drain placed at the time of his initial surgery inferior to the gallbladder fossa. Prior to discharge he had GRICELDA drain fluid sent for bilirubin which was 1 which was against a biliary leak. He did have a HIDA scan prior to his initial discharge to assess for possible leak and none was noted. He was discharged on 06/06/2025. He returned and was readmitted on 06/10/2025 with various vague complaints including worsening abdominal pain. He was found to have a mild leukocytosis. He had a CT scan which revealed findings of loculated fluid and gas collection in the gallbladder fossa. Consideration was given for possible drainage with interventional radiology however he ultimately convalesced well and was discharged on 06/13/2025. Upon return to the office on today on 06/19/25 he was doing well without any appreciable complaints. Tolerating diet. GRICELDA drain has had scant serous output. Patient had no fever. His GRICELDA drain was scant serous liquid and therefore was removed as it was not draining any potential fluid collection in previous CT scan showed it to be inferior to the gallbladder fossa. Plan was made for outpatient follow-up CT scan to assess for maturation of any residual abscess to see if he would require elective drain placement. However as he was being discharged from the office patient had feculent vomiting. He therefore was sent to the emergency department for evaluation. He had a normal white blood cell count. Temperature is 98.6. Normal pulse rate. He had a CT scan performed which revealed loculated air and fluid collection in the gallbladder fossa. It was felt that this was favoring an abscess. [facility] Disclaimer: The information contained in this section may have been updated after the patient was seen, as this information can be updated by other users. Medical History Opioid overdose Generalized weakness Atrial fibrillation with rapid ventricular response Intractable nausea and vomiting Dementia COPD (chronic obstructive pulmonary disease) Abscess of lung Acute diverticulitis Arthritis Diabetes Afib Hypotension Abnormal electrocardiography Dyspnea Surgical History History of laparoscopic cholecystectomy History of total right knee replacement Family History Other Family history of cancer Social History Smoking Status: Never smoker smoking status stop date: 25 years ago alcohol intake: former substance use type: denies use current occupational status: disabled Travel in the last 8 weeks?: [place] the [place] household members: spouse and children housing: house Have you lived/traveled outside US in past 30 days?: No Contact w/someone who lives/traveled outside US past 30 days?: No Exposure to someone with infectious disease in past 14 days?: No Do you have a fever (greater than 100.4 F or 38 C)?: No Have you tested positive for COVID-19?: No Exposed to someone with COVID-19 in past 14 days?: No Do you have a sore throat?: No Do you have a cough?: No Do you have any weakness?: No Do you have any diarrhea?: No Are you experiencing any unusual bleeding?: No Do you have any muscle aches/pain?: No Do you have any abdominal pain?: No Are you experiencing loss of taste or smell?: No Other Medical History Have you received the Flu Vaccine for this season: No Have you received the Pneumonia Vaccine: No Meds Home Medications and Allergies Home Medications ?Medication ?Instructions ?Recorded ?Confirmed ?Type finasteride 5 mg tablet 5 mg PO DAILY 05/12/21 06/19/25 History metformin 1,000 mg tablet 1,000 mg PO BIDWMEAL 05/12/21 06/19/25 History tamsulosin 0.4 mg capsule 0.4 mg PO HS 03/26/22 06/19/25 History rivaroxaban 20 mg tablet 20 mg PO QPMWITHMEAL 04/27/22 06/19/25 History esomeprazole magnesium 40 mg 40 mg PO DAILY 12/05/22 06/19/25 History capsule,delayed release insulin degludec 100 unit/mL (3 28 unit SQ DAILY 12/05/22 06/19/25 History mL) subcutaneous pen (Tresiba FlexTouch U-100 insulin) midodrine 5 mg tablet 10 mg PO TID 12/05/22 06/19/25 History ferrous sulfate 325 mg (65 mg 325 mg PO DAILY 11/27/23 06/19/25 History iron) tablet (FeroSul) alprazolam 0.5 mg tablet 0.5 mg PO BIDP PRN Anxiety 10 days 11/29/23 06/19/25 Rx #20 tabs gabapentin 400 mg capsule 400 mg PO BID 06/02/25 06/19/25 History memantine 5 mg tablet 5 mg PO BID 06/02/25 06/19/25 History oxycodone-acetaminophen 7.5 mg-325 1 tab PO Q6HP PRN Severe Pain 06/02/25 06/19/25 History mg tablet (Scale Score 7-10) potassium chloride 10 mEq 10 meq PO DAILY 06/02/25 06/19/25 History capsule,extended release triamcinolone acetonide 0.1 % 1 applic topical BID 06/02/25 06/19/25 History topical cream quetiapine 50 mg tablet 25 mg PO HS 06/03/25 06/19/25 History amoxicillin 875 mg-potassium 1 tab PO BID #20 tabs 06/13/25 06/19/25 Rx clavulanate 125 mg tablet docusate sodium 250 mg capsule 250 mg PO DAILY 30 days #30 caps 06/13/25 06/19/25 Rx levofloxacin 750 mg tablet 750 mg PO DAILY #10 tabs 06/13/25 06/19/25 Rx New Prescriptions to Start Prescriptions: Allergies Allergy/AdvReac Type Severity Reaction Status Date / Time No Known Allergies Allergy Verified 06/19/25 09:41 Exam Data for Last 24 hours Vital signs and Labs for Last 24 Hours: Temp Pulse Resp BP Pulse Ox O2 Del Method 98.6 F 96 H 16 128/75 91 L Room Air 06/19/25 10:32 06/19/25 16:30 06/19/25 10:32 06/19/25 18:01 06/19/25 16:30 06/19/25 12:01 Laboratory Results - last 24 hr 06/19/25 10:37: WBC 5.9, RBC 4.30 L, Hgb 12.7 L, Hct 39.8 L, MCV 92.6, MCH 29.5, MCHC 31.9, RDW 13.6, Plt Count 274, MPV 9.1, Neut % (Auto) 59.1, Lymph % (Auto) 25.9, [place] % (Auto) 9.5 H, Eos % (Auto) 3.7, Baso % (Auto) 0.8, Neut # (Auto) 3.5, Lymph # (Auto) 1.5, [place] # (Auto) 0.6, Eos # (Auto) 0.2, Baso # (Auto) 0.1, PT 16.0 H, INR 1.48 H, APTT 40.1 H, Sodium 135 L, Potassium 4.1, Chloride 98, Carbon Dioxide 31 H, Anion Gap 10.1, BUN 16, Creatinine 1.20, Estimated Creat Clear 65, Estimated GFR 57 L, Est GFR ( Amer) 69, Glucose 146 H, Calcium 9.0, Magnesium 1.3 L, Total Bilirubin 0.6, AST 29, ALT 20, Alkaline Phosphatase 72, Troponin I < 0.01, Total Protein 7.1, Albumin 3.9, Globulin 3.2, Albumin/Globulin Ratio 1.2, Lipase 64, HCV Ab DERRELL w/Rflx PCR Qn Negative, HIV Ag/Ab Combo Qual Negative I & O for Last 24 hours: Intake & Output 06/16/25 06/17/25 06/18/25 06/19/25 23:59 22:59 23:59 23:59 Intake Total 1250 / 1250 Balance 1250 / 1250 Weight 103.419 kg Constitutional Constitutional: no acute distress *Routine HEENT Exam Head: Present normocephalic Eye: Present EOMI and PERRL ENT: Present mucous membranes moist *Routine Neck Exam Neck: Present supple; Absent lymphadenopathy *Routine Respiratory Exam Respiratory: Present CTA bilaterally *Routine Cardiovascular Exam Cardiovascular: Present RRR *Routine Abdominal Exam Abdominal: Present soft and normoactive bowel sounds; Absent tenderness Comments: Mild right upper quadrant tenderness to palpation. No peritoneal signs. *Routine Rectal Exam Rectal:: deferred *Routine Genitalia Exam Genitalia:: deferred *Routine Extremities Exam Extremities: Absent cyanosis, clubbing or edema *Routine Skin Exam Skin: Present warm; Absent rash *Routine Neurological Exam Neurological: Present alert and oriented X3 Assessment and Plan *Assessment and plan (1) Abscess after procedure: Status: Acute Category: Medical Code(s): T81.49XA - Infection following a procedure, other surgical site, initial encounter Plan Boubacar Baxter is a 85-year-old male with a medical history significant for recent cholecystectomy, A-fib on Xarelto, type 2 diabetes, orthostatic hypotension, mood disorder, BPH, iron deficient anemia, dementia, GERD who presents after general surgery office visit due to an episode of nausea/vomiting. Patient was recently admitted to our facility for a postop gallbladder fossa abscess after cholecystectomy on 06/02/2025, discharged in stable condition on Augmentin and levofloxacin with a GRICELDA drain. He was doing well, followed up with Dr. Wen in the office today who remove the GRICELDA drain shortly after office visit, patient had an episode of nausea/vomiting for which she was recommended to come to the ED. He denies fever/chills, chest pain, shortness of breath, abdominal pain, intolerance to p.o. intake. CT abdomen/pelvis shows loculated air and fluid collection in the gallbladder fossa consistent with abscess. WBC 5.9, CMP largely unremarkable, magnesium 1.3. Dr. Wen was consulted by the ED, who preferred patient to be transferred to [facility] [place] for definitive treatment with IR guided drainage of abscess. We unfortunately do not have IR until Wednesday, however ultimately patient and family preferred to be admitted to our hospital for IR evaluation on Wednesday. Given these findings, ED provider discussed case with me and I decided to admit patient for postop abscess. #Postoperative gallbladder fossa abscess #History of cholecystectomy on 06/02/2025 ? Presented with nausea/vomiting after office visit with general surgery, found to have persistent gallbladder fossa abscess on CT abdomen/pelvis. ? Patient had underwent laparoscopic cholecystectomy with Dr. Dempsey on 06/02/2025, had been treated with IV antibiotics on previous admission. ? Initial WBC 5.9, no signs of sepsis. ? General Surgery consulted, recommend continuing IV antibiotics and discussion with IR on Wednesday. ? Started vancomycin, Zosyn 3.375 g every 6 hours. ? Follow-up blood cultures. ? Follow-up CBC CRP, procalcitonin in the morning. #Atrial fibrillation #Chronic anticoagulation ? Rate controlled. Hold Xarelto for upcoming IR procedure. Therapeutic Lovenox until 06/21/2024. #Diabetes mellitus, type II ? Hemoglobin A1c 6.2% in May. Hold off on ACHS glucose checks, SSI. #GERD: Continue home PPI. #Mood disorder: Continue Xanax twice daily as needed, quetiapine 25 mg 3 times daily. #BPH: Continue tamsulosin 0.4 mg at bedtime and finasteride 5 mg daily. #Hypotension: Patient takes midodrine 10 mg 3 times daily, blood pressure currently stable, holding medication. #Dementia: Continue memantine 5 mg twice daily. Full code DVT prophylaxis: Therapeutic Lovenox Home medications: Restarted.
--- NOTE | 2025-06-19 18:30 | PC.NURSE ---
arrived by stretcher from ED
--- NOTE | 2025-06-19 18:33 | PC.NURSE ---
1415 dose of vancomycin not given in ER. dose being hung by this RN at this time.
[2025-06-19] MEDS: VANCOMYCIN/WATER FOR INJ (PEG) 1.75 GM/350 ML PIGGYBACK IV (18:35)
--- NOTE | 2025-06-19 18:36 | PC.NURSE ---
1415 dose of vancomycin not given in ER. dose hung by this RN at 1835.
[2025-06-19 18:40] LABS: C-Reactive Protein 32.2 mg/L (0-4)
[2025-06-19 18:52] LABS: Procalcitonin 0.070 ng/mL (0.0-2.0)
[2025-06-19] MEDS: TAMSULOSIN 0.4MG CAPSULE 0.4 MG PO (20:30)
[2025-06-19] MEDS: MIDODRINE HCL 5 MG TABLET 10 MG PO (20:30)
[2025-06-19] MEDS: GABAPENTIN 400MG CAPSULE 400 MG PO (20:30)
[2025-06-19] MEDS: PATIENT'S OWN HOME MEDICATION (Quetiapine 50 mg tablet) 25 EACH PO (20:30)
[2025-06-19] MEDS: PATIENT'S OWN HOME MEDICATION (Memantine 5 mg tablet) 5 EACH PO (20:30)
[2025-06-19] MEDS: VANCOMYCIN CONSULT REQUEST 1 EACH NOTAPPLIC (20:30)
[2025-06-19] MEDS: PANTOPRAZOLE 40MG TABLET 40 MG PO (20:30)
[2025-06-19] MEDS: HYDROCODONE/APAP 5/325 MG TABLET 1 TAB PO (20:45)
[2025-06-19] MEDS: PIPERCILLIN/TAZO 3.375 GM in 0.9 % SODIUM CHLORIDE 50 ML IV (23:45)
[2025-06-20] VITALS: BP 103/61; PULSE 100; RESP 16; TEMP 36.9; O2SAT 94
[2025-06-20] MEDS: HYDROCODONE/APAP 5/325 MG TABLET 1 TAB PO ×2 (03:58→18:31)
[2025-06-20 04:00] VITALS: BP 110/60; PULSE 88; RESP 17; TEMP 36.8; O2SAT 92; BMI 31.9
--- NOTE | 2025-06-20 04:00 | PC.NURSE ---
Patient is alert and oriented x4; no acute episodes of confusion noted thus far. He was observed to be resting in bed with eyes closed, respirations even and unlabored on room air, and no apparent distress throughout the majority of the night. Patient has had multiple complaints of moderate, throbbing bilateral knee pain and mid-abdominal pain this shift, of which Wideman (1 tablet dose) was administered per MAR for relief. Dressing located to his right abdominal quadrant remains clean, dry, and intact. Mild swelling (+1) was noted to his bilateral ankles/feet. Abdomen is round in appearance and slightly firm + tender upon palpation. Physical assessment performed (see nursing shift biophysical intervention for details); no acute changes from initial assessment noted thus far. Patient gets up with x1 assistance + use of walker during ambulation. Urinal at bedside for voiding needs. No bowel movement this shift. Soft blood pressures noted. Oxygen saturations > 90%. Afebrile. A visitor arrived at approximately 01:00 to stay with the patient for the rest of the night. At this time, the patient is resting in bed without any new needs vocalized. Bed alarm on. Call light within reach.
[2025-06-20] MEDS: PIPERCILLIN/TAZO 3.375 GM in 0.9 % SODIUM CHLORIDE 50 ML IV ×3 (06:05→17:21)
[2025-06-20 06:13] LABS: Hematocrit 36.5 % (42.0-52.0); Hemoglobin 12.1 g/dL (14.1-18.0); Immature Granulocytes % 0.6 %; Mean Corpuscular HGB Conc 33.2 g/dL (31.8-35.4); Mean Corpuscular Hemoglobin 30.5 pg (27.0-31.2); Mean Corpuscular Volume 91.9 fl (80-94); Nucleated Red Blood Cells % 0 %; Platelet Count 246 K/mm3 (142-424); Red Blood Count 3.97 M/mm3 (4.60-6.20); Red Cell Distribution Width-SD 45.8 fL; White Blood Count 5.3 K/mm3 (4.8-10.8)
[2025-06-20 06:23] LABS: Albumin Level 3.8 g/dl (3.5-5.0); Chloride 98 mmol/L (98-107)
[2025-06-20 06:24] LABS: Potassium 3.7 mmoL/L (3.5-5.1); Sodium 135 mmol/L (136-145)
[2025-06-20 06:26] LABS: Alanine Aminotransferase 14 U/L (12-78); Anion Gap 8.7 mEq/L (5-15); Aspartate Amino Transferase 21 U/L (17-59); Blood Urea Nitrogen 12 mg/dl (9-20); Carbon Dioxide 32 mmol/L (22.0-30.0); Creatinine Clearance Estimated 63 mL/min (50-200); Creatinine,Serum 1.20 mg/dl (0.66-1.25); Estimated Glomerular Filt Rate 57 ml/min (>60); GFR (African American) 69 ML/MIN (>60)
[2025-06-20 06:27] LABS: Albumin/Globulin Ratio 2.0 (1.1-1.8); Alkaline Phosphatase 71 U/L (38-126); Bilirubin,Total 0.5 mg/dl (0.2-1.3); Calcium 8.6 mg/dl (8.4-10.2); Globulin 1.9 g/dL (1.3-3.2); Glucose 129 mg/dl (74-100); Magnesium 1.4 mg/dl (1.6-2.3); Total Protein,Serum 5.7 g/dl (6.3-8.2)
--- NOTE | 2025-06-20 07:31 | EXP.PHA.CONS ---
Pharmacy Consult Date: 06/20/25 Time: 07:31 Referring provider: DR. BRODY Reason for Consult:: VANCOMYCIN DOSING Allergies Allergy/AdvReac Type Severity Reaction Status Date / Time No Known Allergies Allergy Verified 06/19/25 09:41 Home Medications ?Medication ?Instructions ?Recorded ?Confirmed ?Type finasteride 5 mg tablet 5 mg PO DAILY 05/12/21 06/19/25 History metformin 1,000 mg tablet 1,000 mg PO BIDWMEAL 05/12/21 06/19/25 History tamsulosin 0.4 mg capsule 0.4 mg PO HS 03/26/22 06/19/25 History rivaroxaban 20 mg tablet 20 mg PO QPMWITHMEAL 04/27/22 06/19/25 History esomeprazole magnesium 40 mg 40 mg PO DAILY 12/05/22 06/19/25 History capsule,delayed release insulin degludec 100 unit/mL (3 28 unit SQ DAILY 12/05/22 06/19/25 History mL) subcutaneous pen (Tresiba FlexTouch U-100 insulin) midodrine 5 mg tablet 10 mg PO TID 12/05/22 06/19/25 History ferrous sulfate 325 mg (65 mg 325 mg PO DAILY 11/27/23 06/19/25 History iron) tablet (FeroSul) alprazolam 0.5 mg tablet 0.5 mg PO BIDP PRN Anxiety 10 days 11/29/23 06/19/25 Rx #20 tabs gabapentin 400 mg capsule 400 mg PO BID 06/02/25 06/19/25 History memantine 5 mg tablet 5 mg PO BID 06/02/25 06/19/25 History oxycodone-acetaminophen 7.5 mg-325 1 tab PO Q6HP PRN Severe Pain 06/02/25 06/19/25 History mg tablet (Scale Score 7-10) potassium chloride 10 mEq 10 meq PO DAILY 06/02/25 06/19/25 History capsule,extended release triamcinolone acetonide 0.1 % 1 applic topical BID 06/02/25 06/19/25 History topical cream quetiapine 50 mg tablet 25 mg PO HS 06/03/25 06/19/25 History amoxicillin 875 mg-potassium 1 tab PO BID #20 tabs 06/13/25 06/19/25 Rx clavulanate 125 mg tablet docusate sodium 250 mg capsule 250 mg PO DAILY 30 days #30 caps 06/13/25 06/19/25 Rx levofloxacin 750 mg tablet 750 mg PO DAILY #10 tabs 06/13/25 06/19/25 Rx New Prescriptions to Start Prescriptions: Height: 1.78 m Weight: 101.196 kg Laboratory Results:: Laboratory Results - last 24 hr 06/19/25 10:37: WBC 5.9, RBC 4.30 L, Hgb 12.7 L, Hct 39.8 L, MCV 92.6, MCH 29.5, MCHC 31.9, RDW 13.6, Plt Count 274, MPV 9.1, Neut % (Auto) 59.1, Lymph % (Auto) 25.9, [place] % (Auto) 9.5 H, Eos % (Auto) 3.7, Baso % (Auto) 0.8, Neut # (Auto) 3.5, Lymph # (Auto) 1.5, [place] # (Auto) 0.6, Eos # (Auto) 0.2, Baso # (Auto) 0.1, PT 16.0 H, INR 1.48 H, APTT 40.1 H, Sodium 135 L, Potassium 4.1, Chloride 98, Carbon Dioxide 31 H, Anion Gap 10.1, BUN 16, Creatinine 1.20, Estimated Creat Clear 65, Estimated GFR 57 L, Est GFR ( Amer) 69, Glucose 146 H, Calcium 9.0, Magnesium 1.3 L, Total Bilirubin 0.6, AST 29, ALT 20, Alkaline Phosphatase 72, Troponin I < 0.01, C-Reactive Protein 32.2 H, Total Protein 7.1, Albumin 3.9, Globulin 3.2, Albumin/Globulin Ratio 1.2, Lipase 64, Procalcitonin 0.070, HCV Ab DERRELL w/Rflx PCR Qn Negative, HIV Ag/Ab Combo Qual Negative 06/20/25 05:30: WBC 5.3, RBC 3.97 L, Hgb 12.1 L, Hct 36.5 L, MCV 91.9, MCH 30.5, MCHC 33.2, RDW 13.4, Plt Count 246, MPV 9.5, Neut % (Auto) 47.3, Lymph % (Auto) 37.6, [place] % (Auto) 8.5, Eos % (Auto) 4.7, Baso % (Auto) 1.3, Neut # (Auto) 2.5, Lymph # (Auto) 2.0, [place] # (Auto) 0.5, Eos # (Auto) 0.3, Baso # (Auto) 0.1, Sodium 135 L, Potassium 3.7, Chloride 98, Carbon Dioxide 32 H, Anion Gap 8.7, BUN 12, Creatinine 1.20, Estimated Creat Clear 63, Estimated GFR 57 L, Est GFR ( Amer) 69, Glucose 129 H, Calcium 8.6, Magnesium 1.4 L, Total Bilirubin 0.5, AST 21 D, ALT 14 D, Alkaline Phosphatase 71, Total Protein 5.7 L, Albumin 3.8, Globulin 1.9, Albumin/Globulin Ratio 2.0 H Medical History: Medical History (Updated 06/19/25 @ 14:31 by Caity Olea (ED), SEROLOGY TECHNICIAN) Opioid overdose Generalized weakness Atrial fibrillation with rapid ventricular response Intractable nausea and vomiting Dementia COPD (chronic obstructive pulmonary disease) Abscess of lung Acute diverticulitis Arthritis Diabetes Afib Hypotension Abnormal electrocardiography Dyspnea Assessment and Plan Assessment and plan all Dx Assessment and Plan for all problems:: Pharmacokinetic dosing service Objective: Patient: Floor: Age: 85 yo Serum creatinine: 1.20 mg/dL Height: 70.1 Inches Weight (kg): 101.2 Assessment: IBW (kg): 73.23 Dosing wt(kg): 101.2 Estimated Creatinine clearance (ml/min): 45.8 CRCL method: Cockcroft and Gault using ibw(default). Drug selected: Vancomycin Loading dose (mg): Vd (liters): 81.0 (factor used: 0.8 L/kg) Shahzad (hr-1): 0.042 Half life (hrs): 16.50 CLvanco=?? 3.402 L/hr Recommended dose: 1750 mg Interval: 24 hrs Infusion time (hrs): 2.0 Predicted peak (mcg/mL): 32.6 Predicted trough (mcg/mL): 12.94 Total body weight is being used for vancomycin dosing. Recommendations: Give Vancomycin 1750 mg q 24 hrs with an expected Cpeak of 32.6 mcg/ml and an expected Ctrough of 12.94 mcg/ml AUC 0-24 /NICOLETTE Data: NICOLETTE 0.5 mcg/mL:?? AUC/NICOLETTE:? 1028.8 NICOLETTE 1.0 mcg/mL:?? AUC/NICOLETTE:? 514.4 --------- NICOLETTE 1.5 mcg/mL:?? AUC/NICOLTETE:? 342.9 NICOLETTE 2.0 mcg/mL:?? AUC/NICOLETTE:? 257.2 Thank you for the consult, will continue to follow. -ANTONIO HUGGINS, TONOD
[2025-06-20 07:49] VITALS: BP 132/79; PULSE 103; RESP 18; TEMP 36.7; O2SAT 96
--- NOTE | 2025-06-20 08:38 | P.PN_ITS ---
Subjective Patient reports: no new complaints and feels better Narrative: Sitting in chair. Exam Data for Last 24 hours Vital signs and Labs for Last 24 Hours: Temp Pulse Resp BP Pulse Ox O2 Del Method 98.1 F 103 H 18 132/79 96 Room Air 06/20/25 07:49 06/20/25 07:49 06/20/25 07:49 06/20/25 07:49 06/20/25 07:49 06/20/25 07:49 Laboratory Results - last 24 hr 06/19/25 10:37: WBC 5.9, RBC 4.30 L, Hgb 12.7 L, Hct 39.8 L, MCV 92.6, MCH 29.5, MCHC 31.9, RDW 13.6, Plt Count 274, MPV 9.1, Neut % (Auto) 59.1, Lymph % (Auto) 25.9, [place] % (Auto) 9.5 H, Eos % (Auto) 3.7, Baso % (Auto) 0.8, Neut # (Auto) 3.5, Lymph # (Auto) 1.5, [place] # (Auto) 0.6, Eos # (Auto) 0.2, Baso # (Auto) 0.1, PT 16.0 H, INR 1.48 H, APTT 40.1 H, Sodium 135 L, Potassium 4.1, Chloride 98, Carbon Dioxide 31 H, Anion Gap 10.1, BUN 16, Creatinine 1.20, Estimated Creat Clear 65, Estimated GFR 57 L, Est GFR ( Amer) 69, Glucose 146 H, Calcium 9.0, Magnesium 1.3 L, Total Bilirubin 0.6, AST 29, ALT 20, Alkaline Phosphatase 72, Troponin I < 0.01, C-Reactive Protein 32.2 H, Total Protein 7.1, Albumin 3.9, Globulin 3.2, Albumin/Globulin Ratio 1.2, Lipase 64, Procalcitonin 0.070, HCV Ab DERRELL w/Rflx PCR Qn Negative, HIV Ag/Ab Combo Qual Negative 06/20/25 05:30: WBC 5.3, RBC 3.97 L, Hgb 12.1 L, Hct 36.5 L, MCV 91.9, MCH 30.5, MCHC 33.2, RDW 13.4, Plt Count 246, MPV 9.5, Neut % (Auto) 47.3, Lymph % (Auto) 37.6, [place] % (Auto) 8.5, Eos % (Auto) 4.7, Baso % (Auto) 1.3, Neut # (Auto) 2.5, Lymph # (Auto) 2.0, [place] # (Auto) 0.5, Eos # (Auto) 0.3, Baso # (Auto) 0.1, Sodium 135 L, Potassium 3.7, Chloride 98, Carbon Dioxide 32 H, Anion Gap 8.7, BUN 12, Creatinine 1.20, Estimated Creat Clear 63, Estimated GFR 57 L, Est GFR ( Amer) 69, Glucose 129 H, Calcium 8.6, Magnesium 1.4 L, Total Bilirubin 0.5, AST 21 D, ALT 14 D, Alkaline Phosphatase 71, Total Protein 5.7 L, Albumin 3.8, Globulin 1.9, Albumin/Globulin Ratio 2.0 H I & O for Last 24 hours: Intake & Output 06/17/25 06/18/25 06/19/25 06/20/25 10:59 11:59 11:59 11:59 Intake Total 2298 / 2298 Output Total 250 / 250 Balance 2047 / 2047 Weight 228 lb 223 lb 1.6 oz Constitutional Constitutional: no acute distress *Routine Respiratory Exam Respiratory: Absent respiratory distress Progress Note: A&P Assessment and plan (1) Abscess after procedure: Status: Acute Assessment and plan: Continue overall management as per primary service (antibiotics, etc.) Continue with current plan for IR drainage later this week
[2025-06-20] MEDS: MAGNESIUM SULFATE IN WATER 2 GM/50 ML PIGGYBACK IV ×3 (09:08→12:02)
[2025-06-20] MEDS: MEMANTINE 10MG TABLET 5 MG PO ×2 (09:08→20:34)
[2025-06-20] MEDS: FINASTERIDE 5MG TABLET 5 MG PO (09:08)
[2025-06-20] MEDS: GABAPENTIN 400MG CAPSULE 400 MG PO ×2 (09:08→20:34)
--- NOTE | 2025-06-20 09:39 | HMH.PTEV ---
Physical Therapy Evaluation Rehab PT IP Evaluation Start: 06/19/25 18:49 Freq: ONCE Status: Active Protocol: Document 06/20/25 08:11 CODIE (Rec: 06/20/25 08:15 CODIE [id number]) Subjective/History History History Per H&P: Boubacar Baxter is a 85-year-old male with a medical history significant for recent cholecystectomy, A-fib on Xarelto, type 2 diabetes, orthostatic hypotension, mood disorder, BPH, iron deficient anemia, dementia, GERD who presents after general surgery office visit due to an episode of nausea/vomiting. Patient was recently admitted to our facility for a postop gallbladder fossa abscess after cholecystectomy on 06/02/2025, discharged in stable condition on Augmentin and levofloxacin with a GRICELDA drain. He was doing well, followed up with Dr. Wen in the office today who remove the GRICELDA drain shortly after office visit, patient had an episode of nausea/vomiting for which she was recommended to come to the ED. He denies fever/chills, chest pain, shortness of breath, abdominal pain, intolerance to p.o. intake. CT abdomen/ pelvis shows loculated air and fluid collection in the gallbladder fossa consistent with abscess. WBC 5.9, CMP largely unremarkable, magnesium 1.3. Dr. Wen was consulted by the ED, who preferred patient to be transferred to [facility] for definitive treatment with IR guided drainage of abscess. We unfortunately do not have IR until Wednesday, however ultimately patient and family preferred to be admitted to our hospital for IR evaluation on Wednesday. Given these findings, ED provider discussed case with me and I decided to admit patient for postop abscess. Subjective Subjective Pt reports he lives with his and uses a RW to ambulate household distances. Pt's assists as needed and is able to provide 24/7 assistance if needed. Pt still intermittently drives. [facility] How much help from another person do you currently need... Turning from your A little back to your side while in a flat bed without using bedrails? Moving from lying on A little back to sitting on the side of a flat bed without using bedrails? Moving to and from a A little bed to a chair ( including a wheelchair)? Standing up from a A little chair using your arms? (e.g., wheelchair, bedside chair) Walking in hospital A little room? Climbing 3-5 steps A little with a railing? Mobility Score 18 Mobility Level [facility] Mobility 6 Walk 10 steps or more Mobility Calculator Rehab PT IP Eval Objective Appearance Patient Behavior Appropriate,Cooperative Patient Orientation Person Difficulty following none instructions Speech Pattern Clear Ambulation Patient Able to Yes Ambulate Ambulation Observation IP General Gait Wide Based Gait Pattern Observation Ambulation Distance 15 (feet) Ambulation Assistive Rolling Walker Device Ambulation Ability Contact Guard/Hand Hold Balance Ability to Arise Able, uses arms to help Sitting Balance Steady, safe Standing Balance Steady, wide stance Dynamic Sitting Good Balance Ability Dynamic Standing Fair Balance Ability Transfers Bed Transfer Ability Contact Guard/Hand Hold Sit to Stand Bed Contact Guard/Hand Hold Transfer Ability Rehab PT IP prob,goals,plan Problems Date of Evaluation: 06/20/25 PT IP Problems Bed Mobility,Transfers,Gait,Balance,Self care,Safety Rehab Potential Rehab Potential Good Plan PT Intervention Plan Bed Mobility,Transfers,Gait,Balance,Self care,Safety, Therapeutic Exercise Other Intervention 1-2 times Plan PT Plan Frequency Daily Duration LOS Discharge Goals Bed Transfer Ability Independent Sit to Stand Chair Independent Transfer Ability Ambulation Distance 50 (feet) Discharge Plan PT Discharge Plan Pt most appropriate for d/c home with 24/7 assistance from for safety at this time. Pt would benefit from skilled acute care PT while at [facility] to address deficits and prevent further functional decline. PT recommending PT services to address deficits. Eval Complexity Eval Charge Codes 08824 - Moderate Complexity PHYSICIAN CERTIFICATION: I certify the specified therapy services for Boubacar Baxter are required, authorized, and reviewed every 30 days.
[2025-06-20 12:00] VITALS: BP 116/68; PULSE 84; RESP 16; TEMP 36.8; O2SAT 95
[2025-06-20] MEDS: MIDODRINE HCL 5 MG TABLET 10 MG PO ×2 (12:44→20:33)
--- NOTE | 2025-06-20 16:39 | EXP.DC.SUM ---
General Admission date:: 06/19/25 HPI HPI HPI: Boubacar Baxter is a 85-year-old male with a medical history significant for recent cholecystectomy, A-fib on Xarelto, type 2 diabetes, orthostatic hypotension, mood disorder, BPH, iron deficient anemia, dementia, GERD who presents after general surgery office visit due to an episode of nausea/vomiting. Patient was recently admitted to our facility for a postop gallbladder fossa abscess after cholecystectomy on 06/02/2025, discharged in stable condition on Augmentin and levofloxacin with a GRICELDA drain. He was doing well, followed up with Dr. Wen in the office today who remove the GRICELDA drain shortly after office visit, patient had an episode of nausea/vomiting for which she was recommended to come to the ED. He denies fever/chills, chest pain, shortness of breath, abdominal pain, intolerance to p.o. intake. CT abdomen/pelvis shows loculated air and fluid collection in the gallbladder fossa consistent with abscess. WBC 5.9, CMP largely unremarkable, magnesium 1.3. Dr. Wen was consulted by the ED, who preferred patient to be transferred to [facility] for definitive treatment with IR guided drainage of abscess. We unfortunately do not have IR until Wednesday, however ultimately patient and family preferred to be admitted to our hospital for IR evaluation on Wednesday. Given these findings, ED provider discussed case with me and I decided to admit patient for postop abscess. From general surgery note: Patient is an 85-year-old male. He underwent laparoscopic cholecystectomy with Dr. Dempsey as an inpatient on 06/02/2025. Pathology did reveal acute cholecystitis with cholelithiasis. He remained in inpatient for several days for convalescence. He did have a drain placed at the time of his initial surgery inferior to the gallbladder fossa. Prior to discharge he had GRICELDA drain fluid sent for bilirubin which was 1 which was against a biliary leak. He did have a HIDA scan prior to his initial discharge to assess for possible leak and none was noted. He was discharged on 06/06/2025. He returned and was readmitted on 06/10/2025 with various vague complaints including worsening abdominal pain. He was found to have a mild leukocytosis. He had a CT scan which revealed findings of loculated fluid and gas collection in the gallbladder fossa. Consideration was given for possible drainage with interventional radiology however he ultimately convalesced well and was discharged on 06/13/2025. Upon return to the office on today on 06/19/25 he was doing well without any appreciable complaints. Tolerating diet. GRICELDA drain has had scant serous output. Patient had no fever. His GRICELDA drain was scant serous liquid and therefore was removed as it was not draining any potential fluid collection in previous CT scan showed it to be inferior to the gallbladder fossa. Plan was made for outpatient follow-up CT scan to assess for maturation of any residual abscess to see if he would require elective drain placement. However as he was being discharged from the office patient had feculent vomiting. He therefore was sent to the emergency department for evaluation. He had a normal white blood cell count. Temperature is 98.6. Normal pulse rate. He had a CT scan performed which revealed loculated air and fluid collection in the gallbladder fossa. It was felt that this was favoring an abscess. Hospital Course Hospital Course Hospital Course: Boubacar Baxter is a 85-year-old male with a medical history significant for recent cholecystectomy, A-fib on Xarelto, type 2 diabetes, orthostatic hypotension, mood disorder, BPH, iron deficient anemia, dementia, GERD who presents after general surgery office visit due to an episode of nausea/vomiting. Patient was recently admitted to our facility for a postop gallbladder fossa abscess after cholecystectomy on 06/02/2025, discharged in stable condition on Augmentin and levofloxacin with a GRICELDA drain. He was doing well, followed up with Dr. Wen in the office today who remove the GRICELDA drain shortly after office visit, patient had an episode of nausea/vomiting for which she was recommended to come to the ED. He denies fever/chills, chest pain, shortness of breath, abdominal pain, intolerance to p.o. intake. CT abdomen/pelvis shows loculated air and fluid collection in the gallbladder fossa consistent with abscess. WBC 5.9, CMP largely unremarkable, magnesium 1.3. Dr. Wen was consulted by the ED, who preferred patient to be transferred to [facility] for definitive treatment with IR guided drainage of abscess. We unfortunately do not have IR until Wednesday, however ultimately patient and family preferred to be admitted to our hospital for IR evaluation on Wednesday. Given these findings, ED provider discussed case with me and I decided to admit patient for postop abscess. #Postoperative gallbladder fossa abscess #Recent cholecystectomy on 06/02/2025 ? Presented with nausea/vomiting with RUQ abdominal pain after office visit with general surgery, found to have persistent gallbladder fossa abscess on CT abdomen/pelvis. ? Patient had underwent laparoscopic cholecystectomy with Dr. Dempsey on 06/02/2025, had been treated with IV antibiotics on previous admission. ? CT abdomen/pelvis on 06/19/2025 reveals 7.2 x 4.4 cm slightly enlarging gallbladder fossa abscess. WBC, vital signs normal. Of note, GRICELDA drain placed after surgery was not within the abscess. Only drained serosanguineous fluid. ? Treated with vancomycin, Zosyn during admission. ? Given that we do not have interventional radiology on Wednesday, I reached out to [facility] and Dr. Garcia and Dr. Corey graciously accepted patient given that Dr. Dempsey works at their facility. Will be transferred in stable condition. #Atrial fibrillation #Chronic anticoagulation ? Rate controlled. Hold Xarelto for upcoming IR procedure. Received last dose of therapeutic Lovenox in the setting of A-fib at 6:05 AM. #Diabetes mellitus, type II ? Hemoglobin A1c 6.2% in May. #GERD: Continued home PPI. #Mood disorder: Continued Xanax twice daily as needed, quetiapine 25 mg 3 times daily. #BPH: Continued tamsulosin 0.4 mg at bedtime and finasteride 5 mg daily. #Hypotension: Patient takes midodrine 10 mg 3 times daily. #Dementia: Continued memantine 5 mg twice daily. Total time spent on discharge: 36 minutes on chart review, counseling, documentation, and direct care with patient. Exam Data for Last 24 hours Vital signs and Labs for Last 24 Hours: Temp Pulse Resp BP Pulse Ox O2 Del Method 98.2 F 84 16 116/68 95 Room Air 06/20/25 12:00 06/20/25 12:00 06/20/25 12:00 06/20/25 12:00 06/20/25 12:00 06/20/25 13:01 Laboratory Results - last 24 hr 06/19/25 10:37: C-Reactive Protein 32.2 H, Procalcitonin 0.070 06/20/25 05:30: WBC 5.3, RBC 3.97 L, Hgb 12.1 L, Hct 36.5 L, MCV 91.9, MCH 30.5, MCHC 33.2, RDW 13.4, Plt Count 246, MPV 9.5, Neut % (Auto) 47.3, Lymph % (Auto) 37.6, Mcleod % (Auto) 8.5, Eos % (Auto) 4.7, Baso % (Auto) 1.3, Neut # (Auto) 2.5, Lymph # (Auto) 2.0, Mcleod # (Auto) 0.5, Eos # (Auto) 0.3, Baso # (Auto) 0.1, Sodium 135 L, Potassium 3.7, Chloride 98, Carbon Dioxide 32 H, Anion Gap 8.7, BUN 12, Creatinine 1.20, Estimated Creat Clear 63, Estimated GFR 57 L, Est GFR ( Amer) 69, Glucose 129 H, Calcium 8.6, Magnesium 1.4 L, Total Bilirubin 0.5, AST 21 D, ALT 14 D, Alkaline Phosphatase 71, Total Protein 5.7 L, Albumin 3.8, Globulin 1.9, Albumin/Globulin Ratio 2.0 H I & O for Last 24 hours: Intake & Output 06/17/25 06/18/25 06/19/25 06/20/25 22:59 23:59 23:59 23:59 Intake Total 1600 / 1838 1268 / 1268 Output Total 250 / 250 0 / 0 Balance 1350 / 1588 1268 / 1268 Weight 102.143 kg 101.196 kg Constitutional Constitutional: no acute distress *Routine HEENT Exam Head: Present normocephalic Eye: Present EOMI and PERRL ENT: Present mucous membranes moist *Routine Neck Exam Neck: Present supple; Absent lymphadenopathy *Routine Respiratory Exam Respiratory: Present CTA bilaterally *Routine Cardiovascular Exam Cardiovascular: Present RRR *Routine Abdominal Exam Abdominal: Present soft, normoactive bowel sounds and tenderness Comments: Mild right upper quadrant, epigastric tenderness to palpation without peritoneal signs. *Routine Extremities Exam Extremities: Absent cyanosis, clubbing or edema *Routine Skin Exam Skin: Present warm; Absent rash *Routine Neurological Exam Neurological: Present alert and oriented X3 Results Data Completed and Pending Labs on day of discharge: Labs from last 24 hours 06/20/25 06/19/25 05:30 10:37 WBC 5.3 RBC 3.97 L Hgb 12.1 L Hct 36.5 L MCV 91.9 MCH 30.5 MCHC 33.2 RDW 13.4 Plt Count 246 MPV 9.5 Neut % (Auto) 47.3 Lymph % (Auto) 37.6 Mcleod % (Auto) 8.5 Eos % (Auto) 4.7 Baso % (Auto) 1.3 Neut # (Auto) 2.5 Lymph # (Auto) 2.0 Mcleod # (Auto) 0.5 Eos # (Auto) 0.3 Baso # (Auto) 0.1 Sodium 135 L Potassium 3.7 Chloride 98 Carbon Dioxide 32 H Anion Gap 8.7 BUN 12 Creatinine 1.20 Estimated Creat Clear 63 Estimated GFR 57 L Est GFR ( Amer) 69 Glucose 129 H Calcium 8.6 Magnesium 1.4 L Total Bilirubin 0.5 AST 21 D ALT 14 D Alkaline Phosphatase 71 C-Reactive Protein 32.2 H Total Protein 5.7 L Albumin 3.8 Globulin 1.9 Albumin/Globulin Ratio 2.0 H Procalcitonin 0.070 DS: Diagnosis Discharge Diagnosis (1) Abscess after procedure: Status: Acute Code(s): T81.49XA - Infection following a procedure, other surgical site, initial encounter Meds Home Medications and Allergies Home Medications ?Medication ?Instructions ?Recorded ?Confirmed ?Type finasteride 5 mg tablet 5 mg PO DAILY 05/12/21 06/19/25 History metformin 1,000 mg tablet 1,000 mg PO BIDWMEAL 05/12/21 06/19/25 History tamsulosin 0.4 mg capsule 0.4 mg PO HS 03/26/22 06/19/25 History rivaroxaban 20 mg tablet 20 mg PO QPMWITHMEAL 04/27/22 06/19/25 History esomeprazole magnesium 40 mg 40 mg PO DAILY 12/05/22 06/19/25 History capsule,delayed release insulin degludec 100 unit/mL (3 28 unit SQ DAILY 12/05/22 06/19/25 History mL) subcutaneous pen (Tresiba FlexTouch U-100 insulin) midodrine 5 mg tablet 10 mg PO TID 12/05/22 06/19/25 History ferrous sulfate 325 mg (65 mg 325 mg PO DAILY 11/27/23 06/19/25 History iron) tablet (FeroSul) alprazolam 0.5 mg tablet 0.5 mg PO BIDP PRN Anxiety 10 days 11/29/23 06/19/25 Rx #20 tabs gabapentin 400 mg capsule 400 mg PO BID 06/02/25 06/19/25 History memantine 5 mg tablet 5 mg PO BID 06/02/25 06/19/25 History oxycodone-acetaminophen 7.5 mg-325 1 tab PO Q6HP PRN Severe Pain 06/02/25 06/19/25 History mg tablet (Scale Score 7-10) potassium chloride 10 mEq 10 meq PO DAILY 06/02/25 06/19/25 History capsule,extended release triamcinolone acetonide 0.1 % 1 applic topical BID 06/02/25 06/19/25 History topical cream quetiapine 50 mg tablet 25 mg PO HS 06/03/25 06/19/25 History docusate sodium 250 mg capsule 250 mg PO DAILY 30 days #30 caps 06/13/25 06/19/25 Rx New Prescriptions to Start Prescriptions: Allergies Allergy/AdvReac Type Severity Reaction Status Date / Time No Known Allergies Allergy Verified 06/19/25 09:41 Discharge Plan Disposition Patient Disposition: Xfer Short-Term Hosp Condition: Fair Discharge Order Discharge Orders: Discharge Order (Routine); Ordered 06/20/25 Ordered By: Joao Blood Follow up Plan Prescriptions/Medication Reconciliation: Continued tamsulosin 0.4 MG capsule 0.4 mg PO HS rivaroxaban 20 mg tablet 20 mg PO QPMWITHMEAL midodrine 5 mg tablet 10 mg PO TID esomeprazole magnesium 40 mg capsule,delayed release(DR/EC) 40 mg PO DAILY Patient Comments: TAKE 1 CAPSULE BY MOUTH ONCE DAILY insulin degludec [Tresiba FlexTouch U-100] 100 unit/mL (3 mL) insulin pen 28 unit SQ DAILY ferrous sulfate [FeroSul] 325 mg (65 mg iron) tablet 325 mg PO DAILY Patient Comments: TAKE 1 TABLET BY MOUTH ONCE DAILY alprazolam 0.5 mg tablet 0.5 mg PO BIDP PRN (Reason: Anxiety) 10 Days Qty: 20 0RF metformin 1,000 MG tablet 1,000 mg PO BIDWMEAL finasteride 5 MG tablet 5 mg PO DAILY potassium chloride 10 mEq capsule, extended release 10 meq PO DAILY Patient Comments: TAKE 1 CAPSULE BY MOUTH ONCE DAILY IN THE MORNING gabapentin 400 mg capsule 400 mg PO BID Patient Comments: TAKE 1 CAPSULE BY MOUTH TWICE DAILY triamcinolone acetonide 0.1 % cream 1 applic TOPICAL BID Patient Comments: APPLY A THIN LAYER TO THE AFFECTED AREA(S) BY TOPICAL ROUTE TWICE A DAY oxycodone-acetaminophen 7.5-325 mg tablet 1 tab PO Q6HP PRN (Reason: Severe Pain (Scale Score 7-10)) Patient Comments: TAKE 1 TABLET BY MOUTH EVERY 6 HOURS NEEDED FOR SEVERE PAIN memantine 5 mg tablet 5 mg PO BID Patient Comments: TAKE 1 TABLET BY MOUTH TWICE DAILY quetiapine 50 mg tablet 25 mg PO HS Patient Comments: take a quarter of tablet at bedtime (12.5mg) docusate sodium 250 mg Capsule 250 mg PO DAILY 30 Days Qty: 30 0RF Discontinued amoxicillin-pot clavulanate 875-125 mg tablet 1 tab PO BID Qty: 20 0RF levofloxacin 750 mg tablet 750 mg PO DAILY Qty: 10 0RF Problem Reconciliation Problems Reviewed?: Yes Patient Discharge Instructions Patient Instructions: Surgical Site Infection Print Language: Persian Providers Primary Care Provider: Courtney Almanza Admit Provider: Joao Blood Attending Provider: Joao Blood
[2025-06-20] MEDS: VANCOMYCIN/WATER FOR INJ (PEG) 1.75 GM/350 ML PIGGYBACK IV (18:02)
[2025-06-20] MEDS: ACETAMINOPHEN 325MG TAB 650 MG PO (18:49)
[2025-06-20] MEDS: QUETIAPINE 25MG TABLET 25 MG PO (20:34)
[2025-06-20] MEDS: TAMSULOSIN 0.4MG CAPSULE 0.4 MG PO (20:34)
[2025-06-20] MEDS: PANTOPRAZOLE 40MG TABLET 40 MG PO (20:34)
[2025-06-20] MEDS: KETOROLAC 30MG/ML VIAL 30 MG IV (20:34)
--- NOTE | 2025-06-20 20:50 | PC.NURSE ---
patient left via ems - belongings sent with patient
--- OUTSIDE RECORDS SUMMARY | 2025-08-13 19:00 | XMS_ITS | Clinical Summary ---
Author Organization Unknown Care Team Providers Care Technician Support Engineer Name Role Phone DALTON PAYAN, BEKAH Unavailable Unavailable ANAMARIA JIANG, STEVE Unavailable Unavailable MADAN KUO, AMPARO Unavailable Unav ailable Payers Payer Name Policy Type Policy Number Effective Date Expira tion Date [employer]AET[employer].C.AUTH [id number] Problems Condition Name Condition Details Condition Category Status Onset Date Resolution Date Last Treatment Date Treating Clinician Comments ACUTE CHOLECYSTITI S Active 2024-08 00:00: 00 Allergies, Adverse Reactions, Alerts Allergy Name Allergy Type Status Severity Reaction(s) Onset Date Inactive Date Treating Clinician Comments NO KNOWN ALLERGIES Propensity to adverse reactions Active 2024-08 12:40: 31 Medications Ordered Medication Name Filled Medication Name Start Date Stop Date Current Medication? Ordering Clinician Indication Dosage Frequency Signature (SIG) Comments Components gabapentin 400 mg capsule 2023-08 00:00: 00 Yes [id number] NERVE PAIN 1 capsule 2 TIMES DAILY 1 capsule 2 TIMES DAILY (route: oral) Med Classific ation: Central Nervous System Agents quetiapine 50 mg tablet 2023-08 00:00: 00 06-16 00:00 :00 No [id number] MOOD DISORDER 0.5 tablet 3 TIMES DAILY 0.5 tablet 3 TIMES DAILY (route: oral) Med Classific ation: Central Nervous System Agents alprazolam 0.5 mg tablet 2023-08 00:00: 00 Yes [id number] ANXIETY 1 tablet 2 TIMES DAILY 1 tablet 2 TIMES DAILY (route: oral) Med Classific ation: Central Nervous System Agents gabapentin 800 mg tablet 2023-08 00:00: 00 09-11 00:00 :00 No [id number] NERVE PAIN 1 tablet 2 TIMES DAILY 1 tablet 2 TIMES DAILY (route: oral) Med Classific ation: Central Nervous System Agents metformin 1,000 mg tablet 2023-08 1- 00:00: 00 Yes [id number] DIABETES 1 tablet 2 TIMES DAILY 1 tablet 2 TIMES DAILY (route: oral) Med Classific ation: Endocrine midodrine 5 mg tablet 2023-08 1-06 00:00: 00 Yes [id number] ORTHOSTATIC HYPOTENTION 2 tablet 3 TIMES DAILY 2 tablet 3 TIMES DAILY (route: oral) Med Classific ation: Cardiovas cular Therapy Agents escitalopra m 10 mg tablet 2023-08 00:00: 00 06-16 00:00 :00 No [id number] DEPRESSION/ ANXIETY 1 tablet DAILY 1 tablet DAILY (route: oral) Med Classific ation: Central Nervous System Agents hydrocodone 10 mg-acetamin ophen 325 mg tablet 2023-08 0 00:00: 00 09-11 00:00 :00 No [id number] PAIN 1 tablet 4 TIMES DAILY 1 tablet 4 TIMES DAILY (route: oral) Med Classific ation: Analgesic , Anti-infl ammatory or Antipyret ic FeroSul 325 mg (65 mg iron) tablet 2023-08 0- 00:00: 00 Yes [id number] SUPPLEMENT 1 tablet DAILY 1 tablet DAILY (route: oral) Med Classific ation: Electroly te Balance-N utritiona l Products finasteride 5 mg tablet 2023-08 0-20 00:00: 00 Yes [id number] BPH 1 tablet DAILY 1 tablet DAILY (route: oral) Med Classific ation: Genitouri nary Therapy cyclobenzap rine 10 mg tablet 2023-08 00:00: 00 06-16 00:00 :00 No [id number] MUSCLE. RELAXER 1 tablet DAILY 1 tablet DAILY (route: oral) Med Classific ation: Locomotor System diclofenac 3 % topical gel 08-16 00:00: 00 09-11 00:00 :00 No [id number] PAIN 1 inch 2 TIMES DAILY 1 inch 2 TIMES DAILY (route: topical) Med Classific ation: Dermatolo gical esomeprazol e magnesium 40 mg capsule,del ayed release 08-16 00:00: 00 Yes [id number] GERD 1 capsule DAILY 1 capsule DAILY (route: oral) Med Classific ation: Gastroint estinal Therapy Agents ferrous sulfate 325 mg (65 mg iron) tablet 08-16 00:00: 00 09-11 00:00 :00 No [id number] SUPPLIMENT 1 tablet DAILY 1 tablet DAILY (route: oral) Med Classific ation: Electroly te Balance-N utritiona l Products magnesium 400 mg (as magnesium oxide) tablet 2023-08 00:00: 00 06-16 00:00 :00 No [id number] SUPPLEMENT 1 tablet DAILY 1 tablet DAILY (route: oral) Med Classific ation: Electroly te Balance-N utritiona l Products ondansetron 4 mg disintegrat ing tablet 2023-08 00:00: 00 06-16 00:00 :00 No [id number] NAUSEA AND VOMITING 1 tablet EVERY 8 HOURS 1 tablet EVERY 8 HOURS (route: oral) Med Classific ation: Gastroint estinal Therapy Agents polyethylen e glycol 3350 17 gram oral powder packet 2023-08 00:00: 00 Yes [id number] CONSTIPATIO N 1 packet DAILY 1 packet DAILY (route: oral) Med Classific ation: Gastroint estinal Therapy Agents promethazin e 25 mg tablet 2023-08 00:00: 00 06-16 00:00 :00 No [id number] NAUSEA/VOMI TING 0.5 tablet EVERY 6 HOURS 0.5 tablet EVERY 6 HOURS (route: oral) Med Classific ation: Respirato ry Therapy Agents tamsulosin 0.4 mg capsule 2023-08 00:00: 00 Yes [id number] BPH 1 capsule DAILY 1 capsule DAILY (route: oral) Med Classific ation: Genitouri nary Therapy Tresiba FlexTouch U-100 insulin 100 unit/mL (3 mL) subcutaneou s pen 2023-08 00:00: 00 Yes [id number] DIABETES 28 unit DAILY 28 unit DAILY (route: subcutaneo us) Med Classific ation: Endocrine Xarelto 20 mg tablet 2023-08 00:00: 00 06-16 00:00 :00 No [id number] ANTIPLATELE T 1 tablet DAILY 1 tablet DAILY (route: oral) Med Classific ation: Hematolog ical Agents oxycodone-a cetaminophe n 5 mg-325 mg tablet 09-11 00:00: 00 06-16 00:00 :00 No [id number] PAIN 1 tablet EVERY 6 HOURS 1 tablet EVERY 6 HOURS (route: oral) Med Classific ation: Analgesic , Anti-infl ammatory or Antipyret ic Vital Signs Vital Name Observation Time Observation Value Commen ts Temperature 2025-06-16 13:45:00.000 98.5 [degF] BMI (%) 2025-06-16 13:19:22.000 35 kg/m2 Height 2025-06-16 13:19:17.000 69 [in_us] Pulse 2025-06-16 13:45:00.000 88 /min O2 Saturation (%) 2025-06-16 13:45:00.000 93 % Respirations 2025-06-16 13:45:00.000 20 /min Weight (lbs) 2025-06-16 13:19:22.000 240 [lb_av] Systolic Blood Pressure 2025-06-16 13:45:00.000 100 mm [Hg] Diastolic Blood Pressure 2025-06-16 13:45:00.000 60 mm [Hg] Plan of Treatment Planned Activity Planned Date Details Comments Future Scheduled Test RN TO OBSE RVE, ASSESS, EVALUATE, AND DEVELOP AN INDIVIDUALIZED PLAN OF CARE. AGENCY MAY ACCEPT ORDERS FROM CONSULTING PHYSICIANS. RN TO OBSERVE AND ASSESS, SAAS ARCHITECT/OCCUPATIONAL THERAPY SUPERVISOR TO OBSERVE FOR RISK FOR FALLS AND INSTRUCT IN FALL PREVENTION, HOME SAFETY, MEDICATION MANAGEMENT, INFECTION PREVENTION, AND NUTRITION MANAGEMENT. RN/SAAS ARCHITECT/OCCUPATIONAL THERAPY SUPERVISOR NURSE MAY PERFORM O2 SATURATION LEVEL ON ADMISSION AND PRN, FOR RN TO ASSESS/SAAS ARCHITECT TO OBSERVE PATIENT, WITH NOTIFICATION TO THE PHYSICIAN IF SATURATION IS 90% IN THE ABSENCE OF MORE SPECIFIC PARAMETERS FROM THE PHYSICIAN. AGENCY MAY PERFORM A RESUMPTION OF CARE VISIT FOLLOWING ANY HOSPITAL ADMISSION. RN/SAAS ARCHITECT/OCCUPATIONAL THERAPY SUPERVISOR TO MONITOR CO-MORBID CONDITIONS LISTED ON THE PLAN OF CARE AND ANY NEW CONDITIONS THAT PRESENT THEMSELVES DURING THIS EPISODE TO IDENTIFY CHANGES AND INTERVENE TO MINIMIZE COMPLICATIONS. [code = RN TO OBSERVE, ASSESS, EVALUATE, AND DEVELOP AN INDIVIDUALIZED PLAN OF CARE. AGENCY MAY ACCEPT ORDERS FROM CONSULTING PHYSICIANS. RN TO OBSERVE AND ASSESS, SAAS ARCHITECT/OCCUPATIONAL THERAPY SUPERVISOR TO OBSERVE FOR RISK FOR FALLS AND INSTRUCT IN FALL PREVENTION, HOME SAFETY, MEDICATION MANAGEMENT, INFECTION PREVENTION, AND NUTRITION MANAGEMENT. RN/SAAS ARCHITECT/OCCUPATIONAL THERAPY SUPERVISOR NURSE MAY PERFORM O2 SATURATION LEVEL ON ADMISSION AND PRN, FOR RN TO ASSESS/SAAS ARCHITECT TO OBSERVE PATIENT, WITH NOTIFICATION TO THE PHYSICIAN IF SATURATION IS 90% IN THE ABSENCE OF MORE SPECIFIC PARAMETERS FROM THE PHYSICIAN. AGENCY MAY PERFORM A RESUMPTION OF CARE VISIT FOLLOWING ANY HOSPITAL ADMISSION. RN/SAAS ARCHITECT/OCCUPATIONAL THERAPY SUPERVISOR TO MONITOR CO-MORBID CONDITIONS LISTED ON THE PLAN OF CARE AND ANY NEW CONDITIONS THAT PRESENT THEMSELVES DURING THIS EPISODE TO IDENTIFY CHANGES AND INTERVENE TO MINIMIZE COMPLICATIONS.] Future Scheduled Test MEDICATION MANAGEMENT; RN/SAAS ARCHITECT/OCCUPATIONAL THERAPY SUPERVISOR TO REVIEW MEDICATIONS FOR INTERACTIONS, EFFECTIVENESS OF DRUG THERAPY, AND SIGNS/SYMPTOMS OF ADVERSE REACTIONS. MAY INSTRUCT AND REINFORCE MEDICATION TEACHING RELATED TO THE USE OF MEDICATIONS, DOSAGE, FREQUENCY, PURPOSE, SIDE EFFECTS, AND TO REPORT COMPLICATIONS. [code = MEDICATION MANAGEMENT; RN/SAAS ARCHITECT/OCCUPATIONAL THERAPY SUPERVISOR TO REVIEW MEDICATIONS FOR INTERACTIONS, EFFECTIVENESS OF DRUG THERAPY, AND SIGNS/SYMPTOMS OF ADVERSE REACTIONS. MAY INSTRUCT AND REINFORCE MEDICATION TEACHING RELATED TO THE USE OF MEDICATIONS, DOSAGE, FREQUENCY, PURPOSE, SIDE EFFECTS, AND TO REPORT COMPLICATIONS.] Future Scheduled Test CARDIOVASC ULAR SYSTEM; RN TO ASSESS/TEACH, SAAS ARCHITECT/OCCUPATIONAL THERAPY SUPERVISOR TO OBSERVE/TEACH RELATED TO ALTERED CARDIOVASCULAR STATUS TO MINIMIZE COMPLICATIONS AND REDUCE HOSPITALIZATION. [code = CARDIOVASCULAR SYSTEM; RN TO ASSESS/TEACH, SAAS ARCHITECT/OCCUPATIONAL THERAPY SUPERVISOR TO OBSERVE/TEACH RELATED TO ALTERED CARDIOVASCULAR STATUS TO MINIMIZE COMPLICATIONS AND REDUCE HOSPITALIZATION.] Future Scheduled Test ARRHYTHMIA MANAGEMENT; RN TO ASSESS AND TEACH, SAAS ARCHITECT/OCCUPATIONAL THERAPY SUPERVISOR TO OBSERVE AND TEACH WARNING SIGNS AND SYMPTOMS TO AVOID HOSPITALIZATION. [code = ARRHYTHMIA MANAGEMENT; RN TO ASSESS AND TEACH, SAAS ARCHITECT/OCCUPATIONAL THERAPY SUPERVISOR TO OBSERVE AND TEACH WARNING SIGNS AND SYMPTOMS TO AVOID HOSPITALIZATION.] Future Scheduled Test RESPIRATOR Y SYSTEM MANAGEMENT; RN TO ASSESS AND TEACH, SAAS ARCHITECT/OCCUPATIONAL THERAPY SUPERVISOR TO OBSERVE AND TEACH RELATED TO ALTERED RESPIRATORY STATUS TO MINIMIZE COMPLICATIONS AND REDUCE HOSPITALIZATION. [code = RESPIRATORY SYSTEM MANAGEMENT; RN TO ASSESS AND TEACH, SAAS ARCHITECT/OCCUPATIONAL THERAPY SUPERVISOR TO OBSERVE AND TEACH RELATED TO ALTERED RESPIRATORY STATUS TO MINIMIZE COMPLICATIONS AND REDUCE HOSPITALIZATION.] Future Scheduled Test COPD MANAG EMENT; RN TO ASSESS AND TEACH, SAAS ARCHITECT/OCCUPATIONAL THERAPY SUPERVISOR TO OBSERVE AND TEACH SIGNS/SYMPTOMS OF COPD EXACERBATION AND PROVIDE EARLY INTERVENTIONS TO MINIMIZE RISK OF HOSPITALIZATION. RN/SAAS ARCHITECT/OCCUPATIONAL THERAPY SUPERVISOR TO INSTRUCT ON SELF-CARE MANAGEMENT INCLUDING BREATHING TECHNIQUES, AIRWAY CLEARANCE, AND PROPER USE OF COPD MEDICATIONS. RN TO ASSESS AND TEACH, SAAS ARCHITECT/OCCUPATIONAL THERAPY SUPERVISOR TO OBSERVE AND TEACH PATIENT/CAREGIVER ABILITY TO MONITOR AND RECORD VITAL SIGNS INCLUDING PULSE OXIMETRY AND BLOOD PRESSURE. PULSE OXIMETER AND BP MONITOR TO BE PROVIDED IF NEEDED. [code = COPD MANAGEMENT; RN TO ASSESS AND TEACH, SAAS ARCHITECT/OCCUPATIONAL THERAPY SUPERVISOR TO OBSERVE AND TEACH SIGNS/SYMPTOMS OF COPD EXACERBATION AND PROVIDE EARLY INTERVENTIONS TO MINIMIZE RISK OF HOSPITALIZATION. RN/SAAS ARCHITECT/OCCUPATIONAL THERAPY SUPERVISOR TO INSTRUCT ON SELF-CARE MANAGEMENT INCLUDING BREATHING TECHNIQUES, AIRWAY CLEARANCE, AND PROPER USE OF COPD MEDICATIONS. RN TO ASSESS AND TEACH, SAAS ARCHITECT/OCCUPATIONAL THERAPY SUPERVISOR TO OBSERVE AND TEACH PATIENT/CAREGIVER ABILITY TO MONITOR AND RECORD VITAL SIGNS INCLUDING PULSE OXIMETRY AND BLOOD PRESSURE. PULSE OXIMETER AND BP MONITOR TO BE PROVIDED IF NEEDED.] Future Scheduled Test SKIN INTEG RITY RN TO ASSESS AND TEACH, SAAS ARCHITECT/OCCUPATIONAL THERAPY SUPERVISOR TO OBSERVE AND TEACH INTEGUMENTARY STATUS TO IDENTIFY CHANGES AND INTERVENE TO MINIMIZE COMPLICATIONS. PROVIDE SKILLED TEACHING OF GENERAL WOUND AND SKIN CARE AND PREVENTION RELATED TO POTENTIAL FOR OR ACTUAL ALTERED SKIN INTEGRITY DRAIN SITE. [code = SKIN INTEGRITY RN TO ASSESS AND TEACH, SAAS ARCHITECT/OCCUPATIONAL THERAPY SUPERVISOR TO OBSERVE AND TEACH INTEGUMENTARY STATUS TO IDENTIFY CHANGES AND INTERVENE TO MINIMIZE COMPLICATIONS. PROVIDE SKILLED TEACHING OF GENERAL WOUND AND SKIN CARE AND PREVENTION RELATED TO POTENTIAL FOR OR ACTUAL ALTERED SKIN INTEGRITY DRAIN SITE.] Future Scheduled Test RN TO ASSE SS AND TEACH, SAAS ARCHITECT/OCCUPATIONAL THERAPY SUPERVISOR TO OBSERVE/TEACH MANAGEMENT OF THE SURGICAL DRAIN INCLUDING SIGNS AND SYMPTOMS OF INFECTION AND WHEN TO CALL THE DOCTOR. EMPTYING DRAIN PRN CLEANSE WITH SOAP AND WATER COVER WITH 4X4 SPLIT GAUZE SECURE WITH TAPE CHANGE DRESSING EVERY NEEDED. [code = RN TO ASSESS AND TEACH, SAAS ARCHITECT/OCCUPATIONAL THERAPY SUPERVISOR TO OBSERVE/TEACH MANAGEMENT OF THE SURGICAL DRAIN INCLUDING SIGNS AND SYMPTOMS OF INFECTION AND WHEN TO CALL THE DOCTOR. EMPTYING DRAIN PRN CLEANSE WITH SOAP AND WATER COVER WITH 4X4 SPLIT GAUZE SECURE WITH TAPE CHANGE DRESSING EVERY NEEDED.] Future Scheduled Test PAIN MANAG EMENT; RN TO ASSESS AND TEACH, OCCUPATIONAL THERAPY SUPERVISOR/SAAS ARCHITECT TO OBSERVE AND TEACH AND PROVIDE EDUCATION ON PAIN MANAGEMENT TECHNIQUES. [code = PAIN MANAGEMENT; RN TO ASSESS AND TEACH, OCCUPATIONAL THERAPY SUPERVISOR/SAAS ARCHITECT TO OBSERVE AND TEACH AND PROVIDE EDUCATION ON PAIN MANAGEMENT TECHNIQUES.] Future Scheduled Test RN TO ASSE SS AND TEACH, SAAS ARCHITECT/OCCUPATIONAL THERAPY SUPERVISOR TO OBSERVE AND TEACH FOR SIGNS AND SYMPTOMS OF SEPSIS AND/OR POST-SEPSIS SYNDROME AND INTERVENE TO MINIMIZE COMPLICATIONS. RN/SAAS ARCHITECT/OCCUPATIONAL THERAPY SUPERVISOR TO PROVIDE SKILLED TEACHING TO PATIENT/CAREGIVER ON SEPSIS AND SELF-MANAGEMENT TECHNIQUES. RN/SAAS ARCHITECT/OCCUPATIONAL THERAPY SUPERVISOR TO MONITOR PATIENT/CAREGIVER ADHERENCE TO MONITOR AND RECORD VITAL SIGNS INCLUDING TEMPERATURE, HEART RATE, RESPIRATIONS, AND SYMPTOMS. RN/SAAS ARCHITECT/OCCUPATIONAL THERAPY SUPERVISOR TO PROVIDE HALFWAY TO ACCOMPLISH THE PATIENT S PERSONAL GOAL. [code = RN TO ASSESS AND TEACH, SAAS ARCHITECT/OCCUPATIONAL THERAPY SUPERVISOR TO OBSERVE AND TEACH FOR SIGNS AND SYMPTOMS OF SEPSIS AND/OR POST-SEPSIS SYNDROME AND INTERVENE TO MINIMIZE COMPLICATIONS. RN/SAAS ARCHITECT/OCCUPATIONAL THERAPY SUPERVISOR TO PROVIDE SKILLED TEACHING TO PATIENT/CAREGIVER ON SEPSIS AND SELF-MANAGEMENT TECHNIQUES. RN/SAAS ARCHITECT/OCCUPATIONAL THERAPY SUPERVISOR TO MONITOR PATIENT/CAREGIVER ADHERENCE TO MONITOR AND RECORD VITAL SIGNS INCLUDING TEMPERATURE, HEART RATE, RESPIRATIONS, AND SYMPTOMS. RN/SAAS ARCHITECT/OCCUPATIONAL THERAPY SUPERVISOR TO PROVIDE HALFWAY TO ACCOMPLISH THE PATIENT S PERSONAL GOAL.] Future Scheduled Test PRN VISITS ; NUMBER OF RN/SAAS ARCHITECT/OCCUPATIONAL THERAPY SUPERVISOR VISITS: 2 RN/SAAS ARCHITECT/OCCUPATIONAL THERAPY SUPERVISOR TO PERFORM: PAIN ASSESSMENT FOR THE FOLLOWING REASONS: EXACERBATION TO PAIN ASSESSMENT [code = PRN VISITS; NUMBER OF RN/SAAS ARCHITECT/OCCUPATIONAL THERAPY SUPERVISOR VISITS: 2 RN/SAAS ARCHITECT/OCCUPATIONAL THERAPY SUPERVISOR TO PERFORM: PAIN ASSESSMENT FOR THE FOLLOWING REASONS: EXACERBATION TO PAIN ASSESSMENT] Goal Patient Goal - REDUCE PAIN Goal Provider Goal - A PLAN OF CARE WILL BE ESTABLISHED THAT MEETS THE PATIENT S NEEDS. PATIENT WILL DEMONSTRATE OXYGEN SATURATION WITHIN NORMAL LIMITS OR PATIENT S OPTIMAL LEVEL ESTABLISHED BY THE PHYSICIAN THROUGHOUT CARE. CHANGES TO CO-MORBID CONDITIONS AND ANY NEW CONDITIONS WILL BE IDENTIFIED AND REPORTED TO THE PHYSICIAN. Goal Provider Goal - PATIENT/CAREGIVER TO VERBALIZE, AND CONSISTENTLY DEMONSTRATE EFFECTIVE, SAFE MANAGEMENT OF MEDICATION INCLUDING KNOWLEDGE OF EFFECTIVENESS, POTENTIAL SIDE EFFECTS AND DRUG REACTIONS AND WHEN TO CONTACT THE APPROPRIATE CARE PROVIDER. PATIENT/CAREGIVER WILL BE ABLE TO VERBALIZE UNDERSTANDING OF MEDICATION REGIMEN AND ACCURATELY TAKE MEDICATIONS PRESCRIBED WITHOUT ADVERSE EFFECTS BY 4 WEEKS. Goal Provider Goal - PATIENT / CAREGIVER WILL VERBALIZE/DEMONSTRATE UNDERSTANDING OF MEASURES TO MANAGE ALTERED CARDIOVASCULAR STATUS BY 4 WEEKS. Goal Provider Goal - PATIENT / CAREGIVER WILL VERBALIZE/DEMONSTRATE AN ABILITY TO ADHERE TO SELF-MANAGEMENT OF HEART ARRHYTHMIA TO MINIMIZE COMPLICATIONS AND AVOID HOSPITALIZATION BY END OF EPISODE. Goal Provider Goal - PATIENT / CAREGIVER WILL VERBALIZE/DEMONSTRATE UNDERSTANDING OF MEASURES TO MANAGE ALTERED RESPIRATORY STATUS BY END OF EPISODE. Goal Provider Goal - PATIENT / CAREGIVER WILL VERBALIZE/DEMONSTRATE AN ABILITY TO ADHERE TO SELF-MANAGEMENT OF COPD TO MINIMIZE COMPLICATIONS AND AVOID HOSPITALIZATION BY END OF EPISODE. Goal Provider Goal - CHANGES IN SKIN INTEGRITY STATUS WILL BE IDENTIFIED AND REPORTED TO THE PHYSICIAN FOR PROMPT INTERVENTION. PATIENT / CAREGIVER WILL VERBALIZE/DEMONSTRATE ADEQUATE KNOWLEDGE OF INTEGUMENTARY STATUS AND APPROPRIATE MEASURES TO PROMOTE SKIN INTEGRITY AND PREVENT INJURY BY 2 WEEKS. Goal Provider Goal - PATIENT / CAREGIVER WILL VERBALIZE/DEMONSTRATE UNDERSTANDING OF MEASURES TO MANAGE SURGICAL DRAIN(S) INCLUDING SIGNS AND SYMPTOMS OF INFECTION AND WHEN TO CALL THE DOCTOR. Goal Provider Goal - PATIENT / CAREGIVER WILL VERBALIZE / DEMONSTRATE UNDERSTANDING OF PAIN CONTROL MEASURES BY 3 WEEKS. Goal Provider Goal - SIGNS OF SEPSIS WILL BE IDENTIFIED PROMPTLY, AND INTERVENTIONS INITIATED TO MINIMIZE SEVERITY AND RISK OF HOSPITALIZATION. POST-SEPSIS SYNDROME INTERVENTIONS WILL BE REVIEWED WITH THE PATIENT/CAREGIVER, IF APPLICABLE. PATIENT / CAREGIVER WILL VERBALIZE/DEMONSTRATE AN ABILITY TO ADHERE TO SELF-MANAGEMENT AT DISCHARGE BY 4 WEEKS. Goal Provider Goal - Progress Notes Progress Notes <paragraph>[Visit Date: 2024 by MAGALIE GOMEZ RN]:</paragraph><paragraph>SOC</paragraph><paragraph></paragraph><paragraph>85-Y EAR-O LD WHITE MALE LIVING IN PRIVATE HOME WITH SPOUSE AND DAUGHTER. RECENT CHOLECYSTECTOMY WITHCURRENT DRAIN ON RIGHT SIDE. USES WHEEL CHAIR AND WALKER. PATIENT WAS DC FROM HOSPITAL AND THEN READMITTED R/T INCREASED PAIN. SEPSIS DETECTED, NEW ATB ORDERED. COMORBIDS: T2DM, COPD, DIVERTIVULITIS, AFIB, OA. 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 PATIENT HAS ABLE AND WILLING CAREGIVER, SPOUSE AND DAUGHTER.</paragraph><paragraph></paragraph><paragraph>SN INSTRUCTED PATIENT/CG ON PAIN THIS VISIT. PATIENT/CG VERBALIZES LIMITED UNDERSTANDING, AND WILL REQUIRE ADDITIONAL EDUCATION/TEACHING. </paragraph><paragraph></paragraph><paragraph>ALL DIAGNOSIS HAVE BEEN CONFIRMED WITH MD. PATIENT IS HOMEBOUND DUE TO DIFFICULTY TRANSFERRING, AMBULATION DIFFICULTIES, UNABLE TO LEAVE HOME WITHOUT ASSIST, LEAVING HOME REQUIRES SIGNIFICANT AND TAXING EFFORT. MOBILITY REQUIRES WALKER, WALKER AND ASSISTANCE OF ONE PERSON TO LEAVE HOME SAFELY.</paragraph> Encounters Start Date/Time End Date/Time Encounter Type Admission Type Attending [facility] Facility Care Department Encounter ID Discharge Date Discharge Status Discharge Condition Discharge Reason Percent Goals Met 2025-06-16 00:00:00 2025-08-14 00:00:00 Outpatient STEVE CASTILLO [facility] [id number]
--- OUTSIDE RECORDS SUMMARY | 2025-08-13 19:00 | XMS_ITS | Clinical Summary ---
Author Organization Unknown Care Team Providers Care Cable Operator Name Role Phone DALTON PAYAN, BEKAH Unavailable Unavailable ANAMARIA JIANG, STEVE Unavailable Unavailable MADAN KUO, AMPARO Unavailable Unav ailable Payers Payer Name Policy Type Policy Number Effective Date Expira tion Date [employer]AET[employer].MA.C.AUTH [id number] Problems Condition Name Condition Details Condition Category [...] 400 mg capsule 2023-08 00:00: 00 Yes [id number] NERVE PAIN 1 capsule 2 TIMES DAILY 1 capsule 2 TIMES DAILY (route: oral) Med Classific ation: Central Nervous System Agents quetiapine 50 mg tablet 2023-08 00:00: 00 06-16 00:00 :00 No [id number] MOOD DISORDER 0.5 tablet 3 TIMES DAILY 0.5 tablet 3 TIMES DAILY (route: oral) Med Classific ation: Central Nervous System Agents alprazolam 0.5 mg tablet 2023-08 00:00: 00 Yes [id number] ANXIETY 1 tablet 2 TIMES DAILY 1 tablet 2 TIMES DAILY (route: oral) Med Classific ation: Central Nervous System Agents gabapentin 800 mg tablet 2023-08 00:00: 00 09-11 00:00 :00 No [id number] NERVE PAIN 1 tablet 2 TIMES DAILY 1 tablet 2 TIMES DAILY (route: oral) Med Classific ation: Central Nervous System Agents metformin 1,000 mg tablet 2023-08 1- 00:00: 00 Yes [id number] DIABETES 1 tablet 2 TIMES DAILY 1 tablet 2 TIMES DAILY (route: oral) Med Classific ation: Endocrine midodrine 5 mg tablet 2023-08 1-06 00:00: 00 Yes [id number] ORTHOSTATIC HYPOTENTION 2 tablet 3 TIMES DAILY 2 tablet 3 TIMES DAILY (route: oral) Med Classific ation: Cardiovas cular Therapy Agents escitalopra m 10 mg tablet 2023-08 00:00: 00 06-16 00:00 :00 No [id number] DEPRESSION/ ANXIETY 1 tablet DAILY 1 tablet DAILY (route: oral) Med Classific ation: Central Nervous System Agents hydrocodone 10 mg-acetamin ophen 325 mg tablet 2023-08 0 00:00: 00 09-11 00:00 :00 No [id number] PAIN 1 tablet 4 TIMES DAILY 1 tablet 4 TIMES DAILY (route: oral) Med Classific ation: Analgesic , Anti-infl ammatory or Antipyret ic FeroSul 325 mg (65 mg iron) tablet 2023-08 0- 00:00: 00 Yes [id number] SUPPLEMENT 1 tablet DAILY 1 tablet DAILY (route: oral) Med Classific ation: Electroly te Balance-N utritiona l Products finasteride 5 mg tablet 2023-08 0-20 00:00: 00 Yes [id number] BPH 1 tablet DAILY 1 tablet DAILY (route: oral) Med Classific ation: Genitouri nary Therapy cyclobenzap rine 10 mg tablet 2023-08 00:00: 00 06-16 00:00 :00 No [id number] MUSCLE. RELAXER 1 tablet DAILY 1 tablet DAILY (route: oral) Med Classific ation: Locomotor System diclofenac 3 % topical gel 08-16 00:00: 00 09-11 00:00 :00 No [id number] PAIN 1 inch 2 TIMES DAILY 1 inch 2 TIMES DAILY (route: topical) Med Classific ation: Dermatolo gical esomeprazol e magnesium 40 mg capsule,del ayed release 08-16 00:00: 00 Yes [id number] GERD 1 capsule DAILY 1 capsule DAILY (route: oral) Med Classific ation: Gastroint estinal Therapy Agents ferrous sulfate 325 mg (65 mg iron) tablet 08-16 00:00: 00 09-11 00:00 :00 No [id number] SUPPLIMENT 1 tablet DAILY 1 tablet DAILY (route: oral) Med Classific ation: Electroly te Balance-N utritiona l Products magnesium 400 mg (as magnesium oxide) tablet 2023-08 00:00: 00 06-16 00:00 :00 No [id number] SUPPLEMENT 1 tablet DAILY 1 tablet DAILY (route: oral) Med Classific ation: Electroly te Balance-N utritiona l Products ondansetron 4 mg disintegrat ing tablet 2023-08 00:00: 00 06-16 00:00 :00 No [id number] NAUSEA AND VOMITING 1 tablet EVERY 8 HOURS 1 tablet EVERY 8 HOURS (route: oral) Med Classific ation: Gastroint estinal Therapy Agents polyethylen e glycol 3350 17 gram oral powder packet 2023-08 00:00: 00 Yes [id number] CONSTIPATIO N 1 packet DAILY 1 packet DAILY (route: oral) Med Classific ation: Gastroint estinal Therapy Agents promethazin e 25 mg tablet 2023-08 00:00: 00 06-16 00:00 :00 No [id number] NAUSEA/VOMI TING 0.5 tablet EVERY 6 HOURS 0.5 tablet EVERY 6 HOURS (route: oral) Med Classific ation: Respirato ry Therapy Agents tamsulosin 0.4 mg capsule 2023-08 00:00: 00 Yes [id number] BPH 1 capsule DAILY 1 capsule DAILY (route: oral) Med Classific ation: Genitouri nary Therapy Tresiba FlexTouch U-100 insulin 100 unit/mL (3 mL) subcutaneou s pen 2023-08 00:00: 00 Yes [id number] DIABETES 28 unit DAILY 28 unit DAILY (route: subcutaneo us) Med Classific ation: Endocrine Xarelto 20 mg tablet 2023-08 00:00: 00 06-16 00:00 :00 No [id number] ANTIPLATELE T 1 tablet DAILY 1 tablet DAILY (route: oral) Med Classific ation: Hematolog ical Agents oxycodone-a cetaminophe n 5 mg-325 mg tablet 09-11 00:00: 00 06-16 00:00 :00 No [id number] PAIN 1 tablet EVERY 6 HOURS 1 [...] CONSULTING PHYSICIANS. RN TO OBSERVE AND ASSESS, MOUNTER/BEHAVIORAL HEALTH ASSISTANT TO OBSERVE FOR RISK FOR FALLS AND INSTRUCT IN FALL PREVENTION, HOME SAFETY, MEDICATION MANAGEMENT, INFECTION PREVENTION, AND NUTRITION MANAGEMENT. RN/MOUNTER/BEHAVIORAL HEALTH ASSISTANT NURSE MAY PERFORM O2 SATURATION LEVEL ON ADMISSION AND PRN, FOR RN TO ASSESS/MOUNTER TO OBSERVE PATIENT, WITH NOTIFICATION TO THE PHYSICIAN IF SATURATION IS 90% IN THE ABSENCE OF MORE SPECIFIC PARAMETERS FROM THE PHYSICIAN. AGENCY MAY PERFORM A RESUMPTION OF CARE VISIT FOLLOWING ANY HOSPITAL ADMISSION. RN/MOUNTER/BEHAVIORAL HEALTH ASSISTANT TO MONITOR CO-MORBID CONDITIONS LISTED ON THE PLAN OF CARE AND ANY NEW CONDITIONS THAT PRESENT THEMSELVES DURING THIS EPISODE TO IDENTIFY CHANGES AND INTERVENE TO MINIMIZE COMPLICATIONS. [code = RN TO OBSERVE, ASSESS, EVALUATE, AND DEVELOP AN INDIVIDUALIZED PLAN OF CARE. AGENCY MAY ACCEPT ORDERS FROM CONSULTING PHYSICIANS. RN TO OBSERVE AND ASSESS, MOUNTER/BEHAVIORAL HEALTH ASSISTANT TO OBSERVE FOR RISK FOR FALLS AND INSTRUCT IN FALL PREVENTION, HOME SAFETY, MEDICATION MANAGEMENT, INFECTION PREVENTION, AND NUTRITION MANAGEMENT. RN/MOUNTER/BEHAVIORAL HEALTH ASSISTANT NURSE MAY PERFORM O2 SATURATION LEVEL ON ADMISSION AND PRN, FOR RN TO ASSESS/MOUNTER TO OBSERVE PATIENT, WITH NOTIFICATION TO THE PHYSICIAN IF SATURATION IS 90% IN THE ABSENCE OF MORE SPECIFIC PARAMETERS FROM THE PHYSICIAN. AGENCY MAY PERFORM A RESUMPTION OF CARE VISIT FOLLOWING ANY HOSPITAL ADMISSION. RN/MOUNTER/BEHAVIORAL HEALTH ASSISTANT TO MONITOR CO-MORBID CONDITIONS LISTED ON THE PLAN OF CARE AND ANY NEW CONDITIONS THAT PRESENT THEMSELVES DURING THIS EPISODE TO IDENTIFY CHANGES AND INTERVENE TO MINIMIZE COMPLICATIONS.] Future Scheduled Test MEDICATION MANAGEMENT; RN/MOUNTER/BEHAVIORAL HEALTH ASSISTANT TO REVIEW MEDICATIONS FOR INTERACTIONS, EFFECTIVENESS OF DRUG THERAPY, AND SIGNS/SYMPTOMS OF ADVERSE REACTIONS. MAY INSTRUCT AND REINFORCE MEDICATION TEACHING RELATED TO THE USE OF MEDICATIONS, DOSAGE, FREQUENCY, PURPOSE, SIDE EFFECTS, AND TO REPORT COMPLICATIONS. [code = MEDICATION MANAGEMENT; RN/MOUNTER/BEHAVIORAL HEALTH ASSISTANT TO REVIEW MEDICATIONS FOR INTERACTIONS, EFFECTIVENESS OF DRUG THERAPY, AND SIGNS/SYMPTOMS OF ADVERSE REACTIONS. MAY INSTRUCT AND REINFORCE MEDICATION TEACHING RELATED TO THE USE OF MEDICATIONS, DOSAGE, FREQUENCY, PURPOSE, SIDE EFFECTS, AND TO REPORT COMPLICATIONS.] Future Scheduled Test CARDIOVASC ULAR SYSTEM; RN TO ASSESS/TEACH, MOUNTER/BEHAVIORAL HEALTH ASSISTANT TO OBSERVE/TEACH RELATED TO ALTERED CARDIOVASCULAR STATUS TO MINIMIZE COMPLICATIONS AND REDUCE HOSPITALIZATION. [code = CARDIOVASCULAR SYSTEM; RN TO ASSESS/TEACH, MOUNTER/BEHAVIORAL HEALTH ASSISTANT TO OBSERVE/TEACH RELATED TO ALTERED CARDIOVASCULAR STATUS TO MINIMIZE COMPLICATIONS AND REDUCE HOSPITALIZATION.] Future Scheduled Test ARRHYTHMIA MANAGEMENT; RN TO ASSESS AND TEACH, MOUNTER/BEHAVIORAL HEALTH ASSISTANT TO OBSERVE AND TEACH WARNING SIGNS AND SYMPTOMS TO AVOID HOSPITALIZATION. [code = ARRHYTHMIA MANAGEMENT; RN TO ASSESS AND TEACH, MOUNTER/BEHAVIORAL HEALTH ASSISTANT TO OBSERVE AND TEACH WARNING SIGNS AND SYMPTOMS TO AVOID HOSPITALIZATION.] Future Scheduled Test RESPIRATOR Y SYSTEM MANAGEMENT; RN TO ASSESS AND TEACH, MOUNTER/BEHAVIORAL HEALTH ASSISTANT TO OBSERVE AND TEACH RELATED TO ALTERED RESPIRATORY STATUS TO MINIMIZE COMPLICATIONS AND REDUCE HOSPITALIZATION. [code = RESPIRATORY SYSTEM MANAGEMENT; RN TO ASSESS AND TEACH, MOUNTER/BEHAVIORAL HEALTH ASSISTANT TO OBSERVE AND TEACH RELATED TO ALTERED RESPIRATORY STATUS TO MINIMIZE COMPLICATIONS AND REDUCE HOSPITALIZATION.] Future Scheduled Test COPD MANAG EMENT; RN TO ASSESS AND TEACH, MOUNTER/BEHAVIORAL HEALTH ASSISTANT TO OBSERVE AND TEACH SIGNS/SYMPTOMS OF COPD EXACERBATION AND PROVIDE EARLY INTERVENTIONS TO MINIMIZE RISK OF HOSPITALIZATION. RN/MOUNTER/BEHAVIORAL HEALTH ASSISTANT TO INSTRUCT ON SELF-CARE MANAGEMENT INCLUDING BREATHING TECHNIQUES, AIRWAY CLEARANCE, AND PROPER USE OF COPD MEDICATIONS. RN TO ASSESS AND TEACH, MOUNTER/BEHAVIORAL HEALTH ASSISTANT TO OBSERVE AND TEACH PATIENT/CAREGIVER ABILITY TO MONITOR AND RECORD VITAL SIGNS INCLUDING PULSE OXIMETRY AND BLOOD PRESSURE. PULSE OXIMETER AND BP MONITOR TO BE PROVIDED IF NEEDED. [code = COPD MANAGEMENT; RN TO ASSESS AND TEACH, MOUNTER/BEHAVIORAL HEALTH ASSISTANT TO OBSERVE AND TEACH SIGNS/SYMPTOMS OF COPD EXACERBATION AND PROVIDE EARLY INTERVENTIONS TO MINIMIZE RISK OF HOSPITALIZATION. RN/MOUNTER/BEHAVIORAL HEALTH ASSISTANT TO INSTRUCT ON SELF-CARE MANAGEMENT INCLUDING BREATHING TECHNIQUES, AIRWAY CLEARANCE, AND PROPER USE OF COPD MEDICATIONS. RN TO ASSESS AND TEACH, MOUNTER/BEHAVIORAL HEALTH ASSISTANT TO OBSERVE AND TEACH PATIENT/CAREGIVER ABILITY TO MONITOR AND RECORD VITAL SIGNS INCLUDING PULSE OXIMETRY AND BLOOD PRESSURE. PULSE OXIMETER AND BP MONITOR TO BE PROVIDED IF NEEDED.] Future Scheduled Test SKIN INTEG RITY RN TO ASSESS AND TEACH, MOUNTER/BEHAVIORAL HEALTH ASSISTANT TO OBSERVE AND TEACH INTEGUMENTARY STATUS TO IDENTIFY CHANGES AND INTERVENE TO MINIMIZE COMPLICATIONS. PROVIDE SKILLED TEACHING OF GENERAL WOUND AND SKIN CARE AND PREVENTION RELATED TO POTENTIAL FOR OR ACTUAL ALTERED SKIN INTEGRITY DRAIN SITE. [code = SKIN INTEGRITY RN TO ASSESS AND TEACH, MOUNTER/BEHAVIORAL HEALTH ASSISTANT TO OBSERVE AND TEACH INTEGUMENTARY STATUS TO IDENTIFY CHANGES AND INTERVENE TO MINIMIZE COMPLICATIONS. PROVIDE SKILLED TEACHING OF GENERAL WOUND AND SKIN CARE AND PREVENTION RELATED TO POTENTIAL FOR OR ACTUAL ALTERED SKIN INTEGRITY DRAIN SITE.] Future Scheduled Test RN TO ASSE SS AND TEACH, MOUNTER/BEHAVIORAL HEALTH ASSISTANT TO OBSERVE/TEACH MANAGEMENT OF THE SURGICAL DRAIN INCLUDING SIGNS AND SYMPTOMS OF INFECTION AND WHEN TO CALL THE DOCTOR. EMPTYING DRAIN PRN CLEANSE WITH SOAP AND WATER COVER WITH 4X4 SPLIT GAUZE SECURE WITH TAPE CHANGE DRESSING EVERY NEEDED. [code = RN TO ASSESS AND TEACH, MOUNTER/BEHAVIORAL HEALTH ASSISTANT TO OBSERVE/TEACH MANAGEMENT OF THE SURGICAL DRAIN INCLUDING SIGNS AND SYMPTOMS OF INFECTION AND WHEN TO CALL THE DOCTOR. EMPTYING DRAIN PRN CLEANSE WITH SOAP AND WATER COVER WITH 4X4 SPLIT GAUZE SECURE WITH TAPE CHANGE DRESSING EVERY NEEDED.] Future Scheduled Test PAIN MANAG EMENT; RN TO ASSESS AND TEACH, BEHAVIORAL HEALTH ASSISTANT/MOUNTER TO OBSERVE AND TEACH AND PROVIDE EDUCATION ON PAIN MANAGEMENT TECHNIQUES. [code = PAIN MANAGEMENT; RN TO ASSESS AND TEACH, BEHAVIORAL HEALTH ASSISTANT/MOUNTER TO OBSERVE AND TEACH AND PROVIDE EDUCATION ON PAIN MANAGEMENT TECHNIQUES.] Future Scheduled Test RN TO ASSE SS AND TEACH, MOUNTER/BEHAVIORAL HEALTH ASSISTANT TO OBSERVE AND TEACH FOR SIGNS AND SYMPTOMS OF SEPSIS AND/OR POST-SEPSIS SYNDROME AND INTERVENE TO MINIMIZE COMPLICATIONS. RN/MOUNTER/BEHAVIORAL HEALTH ASSISTANT TO PROVIDE SKILLED TEACHING TO PATIENT/CAREGIVER ON SEPSIS AND SELF-MANAGEMENT TECHNIQUES. RN/MOUNTER/BEHAVIORAL HEALTH ASSISTANT TO MONITOR PATIENT/CAREGIVER ADHERENCE TO MONITOR AND RECORD VITAL SIGNS INCLUDING TEMPERATURE, HEART RATE, RESPIRATIONS, AND SYMPTOMS. RN/MOUNTER/BEHAVIORAL HEALTH ASSISTANT TO PROVIDE LONG TERM TO ACCOMPLISH THE PATIENT S PERSONAL GOAL. [code = RN TO ASSESS AND TEACH, MOUNTER/BEHAVIORAL HEALTH ASSISTANT TO OBSERVE AND TEACH FOR SIGNS AND SYMPTOMS OF SEPSIS AND/OR POST-SEPSIS SYNDROME AND INTERVENE TO MINIMIZE COMPLICATIONS. RN/MOUNTER/BEHAVIORAL HEALTH ASSISTANT TO PROVIDE SKILLED TEACHING TO PATIENT/CAREGIVER ON SEPSIS AND SELF-MANAGEMENT TECHNIQUES. RN/MOUNTER/BEHAVIORAL HEALTH ASSISTANT TO MONITOR PATIENT/CAREGIVER ADHERENCE TO MONITOR AND RECORD VITAL SIGNS INCLUDING TEMPERATURE, HEART RATE, RESPIRATIONS, AND SYMPTOMS. RN/MOUNTER/BEHAVIORAL HEALTH ASSISTANT TO PROVIDE LONG TERM TO ACCOMPLISH THE PATIENT S PERSONAL GOAL.] Future Scheduled Test PRN VISITS ; NUMBER OF RN/MOUNTER/BEHAVIORAL HEALTH ASSISTANT VISITS: 2 RN/MOUNTER/BEHAVIORAL HEALTH ASSISTANT TO PERFORM: PAIN ASSESSMENT FOR THE FOLLOWING REASONS: EXACERBATION TO PAIN ASSESSMENT [code = PRN VISITS; NUMBER OF RN/MOUNTER/BEHAVIORAL HEALTH ASSISTANT VISITS: 2 RN/MOUNTER/BEHAVIORAL HEALTH ASSISTANT TO PERFORM: PAIN ASSESSMENT FOR THE FOLLOWING [...] T2DM, COPD, DIVERTIVULITIS, AFIB, OA. PATIENT / WEAPONS MECHANIC WILL REQUIRE EDUCATION ON DISEASE PROCESS, DIET [...] 2025-06-16 00:00:00 2025-08-14 00:00:00 Outpatient STEVE CASTILL[facility] [id number] 0.00
== END 2025-06-20 20:50 | disposition short-term general hospital (02) ==
LOC: ER 14:31 → 2ND 14:59
PROVIDERS: Nurse Practitioner; Admitting Provider Student in an Organized Health Care Education/Training Program; Emergency Provider Student in an Organized Health Care Education/Training Program; PCP Internal Medicine; Visit Provider Student in an Organized Health Care Education/Training Program
DX: T81.43XA Infection following a procedure, organ and space surgical site, initial encounter (principal); I48.91 Unspecified atrial fibrillation; K21.9 Gastro-esophageal reflux disease without esophagitis; F39 Unspecified mood [affective] disorder; N40.0 Benign prostatic hyperplasia without lower urinary tract symptoms; I95.1 Orthostatic hypotension; E11.9 Type 2 diabetes mellitus without complications; F03.90 Unspecified dementia, unspecified severity, without behavioral disturbance, psychotic disturbance, mood disturbance, and anxiety; Z96.651 Presence of right artificial knee joint; Z90.49 Acquired absence of other specified parts of digestive tract; Z79.4 Long term (current) use of insulin; Z79.01 Long term (current) use of anticoagulants; Z79.84 Long term (current) use of oral hypoglycemic drugs; Z79.891 Long term (current) use of opiate analgesic; Z79.52 Long term (current) use of systemic steroids; Z79.899 Other long term (current) drug therapy
CPT/HCPCS: 71045; 74177; 80053; 83690; 83735; 84145; 84484; 85025; 85610; 85730; 86140; 86803; 87389; 93005; 96361; 96365; 96366; 96367; 96372; 96375; 96376; 97162; 99285; G0378; J0131; J0692; J1308; J1650; J1836; J1885; J2405; J2543; J3375; J3475; J7030; Q9967